=== PATIENT | female | born 1950 | race Caucasian/White ===

== ENCOUNTER 2019-04-15 12:15 | Outpatient (CLI) | payer MEDICARE, SELFPAY ==
--- NOTE | ~2019-04-15 | XR_ITS ---
EXAMINATION: XR shoulder LT min 2V DATE: 04/15/2019 12:43 INDICATION: Left shoulder pain. Injury. TECHNIQUE: 4 views of left shoulder were obtained. COMPARISON: None. FINDINGS: Bone alignment is normal. No fracture. There is mild osteoarthritis of acromioclavicular roxann int and glenohumeral joint. IMPRESSION: 1. Mild polyarticular osteoarthritis. Reviewed, dictated and finalized at location A. TRY BARN MANAGER
== END 2019-04-15 12:16 | disposition home or self-care (01) ==
LOC: ANHIMG 12:27
PROVIDERS: PCP Internal Medicine; Visit Provider Nurse Practitioner
DX: M25.512 Pain in left shoulder (principal); M19.012 Primary osteoarthritis, left shoulder
CPT/HCPCS: 73030

== ENCOUNTER 2019-04-21 15:53 | Outpatient (CLI) | payer MEDICARE, SELFPAY ==
--- NOTE | ~2019-04-21 | CT_ITS ---
EXAMINATION: CT lung screening EXAM DATE: 04/21/2019 16:25 INDICATION: Personal history of nicotine dependence. TECHNIQUE: Spiral low dose CT of the chest without contrast. Axial, coronal and sagittal images were reviewed. The dose-length product (DLP) for this examination was 180.07 mGy-cm. The exposure was t ailored according to patient size (auto mA exposure control), and iterative reconstruction (ASIR) was used as additional dose reduction technique. There is no prior study for comparison. FINDINGS: The lungs are clear. Tracheobronchial tree is patent. There is no mediastinal, hilar o r axillary lymphadenopathy. There are no pleural or pericardial effusions. There is no pneumothor ax. Heart normal in size. No evidence of coronary arterial calcification. Upper abdomen is unrema rkable. There is mild thoracic spondylosis without osteoblastic or osteolytic lesions identified. IMPRESSION: Lung-RADS category 1, negative (<1%chance of malignancy); recommend continued LDCT screen ing in 1 year. Reviewed, dictated and finalized at location A. RAFT AIR CONDITIONING MECHANIC IMPRESSION: Lung-RADS category 1, negative (<1%chance of malignancy); recommend continued LDCT screening in 1 year.
== END 2019-04-21 15:54 | disposition home or self-care (01) ==
LOC: ANHIMG 15:56
PROVIDERS: PCP Internal Medicine; Visit Provider Nurse Practitioner
DX: Z12.2 Encounter for screening for malignant neoplasm of respiratory organs (principal); Z87.891 Personal history of nicotine dependence
CPT/HCPCS: G0297

== ENCOUNTER 2019-08-06 16:50 | Outpatient (CLI) | payer MEDICARE, SELFPAY ==
[2019-08-06 18:05] LABS: Basophils Absolute Auto 0.1 K/mm3 (0.0-0.1); Basophils Percent Auto 0.7 % (0.2-1.2); Eosinophils Absolute Auto 0.3 K/mm3 (0-0.3); Hematocrit 41.1 % (37.0-47.0); Hemoglobin 13.1 g/dL (12.0-15.0); Immature Granulocyte Absolute 0.04 K/mm3 (0.00-0.031); Immature Granulocyte Percent A 0.4 % (0-0.5); Lymphocytes Absolute Auto 2.81 K/mm3 (0.9-3.2); Lymphocytes Percent Auto 24.8 % (18.3-44.2); Mean Corpuscular HGB Conc 31.9 g/dl (32-36); Mean Corpuscular Hemoglobin 27.2 pg (26-34); Mean Corpuscular Volume 85.4 fl (80-100); Mean Platelet Volume 11.4 fl (7.4-10.4); Monocytes Absolute Auto 0.6 K/mm3 (0.1-0.6); Monocytes Percent Auto 5.5 % (2.6-8.5); Neutrophils Absolute Auto 7.5 K/mm3 (1.3-6.7); Neutrophils Percent Auto 65.6 % (45.5-73.1); Platelet Count Result 316 k/mm3 (150-375); Red Blood Count 4.81 M/mm3 (4.2-5.4); Red Cell Distribution Width 15.1 % (11.5-14.5); White Blood Count 11.4 K/mm3 (4.5-10.0)
== END 2019-08-06 16:51 | disposition home or self-care (01) ==
PROVIDERS: PCP Internal Medicine; Visit Provider Nurse Practitioner
DX: D72.829 Elevated white blood cell count, unspecified (principal)
CPT/HCPCS: 36415; 85025

== ENCOUNTER 2020-04-14 12:27 | Outpatient (CLI) | payer MEDICARE, SELFPAY ==
--- NOTE | ~2020-04-14 | US_ITS ---
EXAMINATION: US soft tissue head and neck DATE: 04/14/2020 13:30 INDICATION: Right neck pain. TECHNIQUE: Multiple grayscale and Doppler ultrasound images of the right neck were obtained. COMPARISON: Chest CT 04/21/2019 FINDINGS: There is no abnormal mass or lymphadenopathy in the patient's area of concern in right neck . IMPRESSION: 1. No abnormal mass or lymphadenopathy. Reviewed, dictated and finalized at location A. SPRAYER FIRST
== END 2020-04-14 12:28 | disposition home or self-care (01) ==
PROVIDERS: PCP Internal Medicine; Visit Provider Nurse Practitioner
DX: M54.2 Cervicalgia (principal)
CPT/HCPCS: 76536

== ENCOUNTER 2020-04-21 10:59 | Outpatient (CLI) | payer MEDICARE, SELFPAY | END 2020-04-21 11:00 | disposition home or self-care (01) | PROVIDERS: PCP Internal Medicine | DX: Z23 Encounter for immunization (principal) | CPT/HCPCS: 0001A; 91300 ==

== ENCOUNTER 2020-05-12 11:28 | Outpatient (CLI) | payer MEDICARE, SELFPAY | END 2020-05-12 11:29 | disposition home or self-care (01) | LOC: ANHCOVIDVC 11:28 | PROVIDERS: PCP Internal Medicine | DX: Z23 Encounter for immunization (principal) | CPT/HCPCS: 0002A; 91300 ==

== ENCOUNTER → 2020-09-16 08:24 | Outpatient (CLI) | payer MEDICARE, SELFPAY ==
[2020-09-16 18:53] LABS: SARS-CoV-2 RNA PCR Negative
== END ==
PROVIDERS: PCP Internal Medicine; Visit Provider Clinical Nurse Specialist
DX: R19.7 Diarrhea, unspecified (principal); Z20.822 Contact with and (suspected) exposure to COVID-19
CPT/HCPCS: C9803; U0003; U0005

== ENCOUNTER 2020-10-06 09:00 | Outpatient (CLI) | payer MEDICARE, SELFPAY ==
--- NOTE | ~2020-10-06 | US_ITS ---
EXAMINATION: US abdomen complete DATE: 10/06/2020 09:39 INDICATION: Abdominal pain TECHNIQUE: Multiple grayscale and Doppler ultrasound images of the abdomen were obtained. COMPARISON: None FINDINGS: The pancreatic head and body are normal in appearance. The pancreatic tail is not visualized. Liver has normal contour, with a smooth surface. There is increased parenchymal echogenicity and coarsened echotexture consistent with diffuse hepatic steatosis. No liver lesion identified. No intrahepatic b iliary duct dilation suspected. Portal venous flow was seen in the hepatopetal, normal direction and has normal Doppler waveform. The gallbladder is normal in appearance. There is no cholelithiasis. Th e common bile duct measures 4 mm, which is normal. 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 There is normal renal contour and echogenicity bilaterally. The right kidney measu res 10.9 x 5.3 x 6.8 cm and the left 12.0 x 4.9 x 4.9 cm. There are no focal renal lesions identifie d. There is no hydronephrosis. Normal spleen which measures 10.5 cm in maximal length. Abdominal aor ta is normal in caliber measuring 2.7 cm proximally tapering to 2.4 cm in the mid aorta and 2.1 cm at the distal aorta. The visualized proximal inferior vena cava is normal. IMPRESSION: 1. Normal abdominal ultrasound. Reviewed, dictated and finalized at location A.
== END 2020-10-06 09:01 | disposition home or self-care (01) ==
LOC: ANHIMG 09:01
PROVIDERS: PCP Internal Medicine; Visit Provider Nurse Practitioner
DX: R10.9 Unspecified abdominal pain (principal)
CPT/HCPCS: 76700

== ENCOUNTER 2020-10-14 07:38 | Outpatient (CLI) | payer MEDICARE, SELFPAY ==
--- NOTE | ~2020-10-14 | NM_ITS ---
EXAMINATION: NM hepatobiliary wo pharm DATE: 10/14/2020 10:15 INDICATION: Unspecified abdominal pain. COMPARISON: Ultrasound 10/06/2020 TECHNIQUE: 4.7 mCi Tc-99m mebrofenin (Choletec) was administered intravenously. Scintigraphic images of the abdomen were obtained for one hour. Then, the patient drank 8 oz Ensure, and imaging was cont inued for 60 minutes. FINDINGS: There is normal clearance of radiotracer from the blood pool. There is homogeneous tracer u ptake by the liver. Activity progresses to the bowel and gallbladder. Gallbladder ejection fraction (GBEF) was 83%. Note that with this technique, normal GBEF >= 33%. IMPRESSION: 1. Normal hepatobiliary scintigraphy. Reviewed, dictated and finalized at location A.
== END 2020-10-14 07:39 | disposition home or self-care (01) ==
PROVIDERS: PCP Internal Medicine; Visit Provider Nurse Practitioner
DX: R10.9 Unspecified abdominal pain (principal)
CPT/HCPCS: 78226; A9537

== ENCOUNTER 2020-10-21 14:10 | Outpatient (CLI) | payer MEDICARE, SELFPAY ==
--- NOTE | ~2020-10-21 | CT_ITS ---
EXAMINATION: CT abdomen pelvis wo con DATE: 10/21/2020 14:38 INDICATION: Unspecified abdominal pain. TECHNIQUE: Computed tomography (CT) of the abdomen and pelvis was performed without intravenous contr ast. Automated exposure control and iterative reconstruction technique were employed. The dose-length product was 1007.42 mGy-cm. COMPARISON: Chest CT 04/21/2019 FINDINGS: The visualized portions of the lung bases demonstrate a calcified right lung nodule, consis tent with old granulomatous disease. No pleural effusion. The heart size is normal. No pericardial ef fusion. There is diffuse hepatic steatosis. The gallbladder, spleen, pancreas, adrenal glands, and ki dneys are normal. There is no urolithiasis. There is diverticulosis of the colon without evidence of diverticulitis. Stool distends the rectum. The appendix is normal. A ventriculoperitoneal shunt is no joshua. There are no pathologically enlarged lymph nodes. There is no free intraperitoneal fluid. There is severe lumbar spondylosis. There are changes of anterior and posterior fusion procedures at L5-S1. IMPRESSION: 1. Stool distends the rectum. 2. Diffuse hepatic steatosis. Reviewed, dictated and finalized at location A.
== END 2020-10-21 14:11 | disposition home or self-care (01) ==
LOC: ANHIMG 14:12
PROVIDERS: PCP Internal Medicine; Visit Provider Nurse Practitioner
DX: R10.84 Generalized abdominal pain (principal); K76.0 Fatty (change of) liver, not elsewhere classified; M47.816 Spondylosis without myelopathy or radiculopathy, lumbar region
CPT/HCPCS: 74176

== ENCOUNTER 2020-12-21 13:47 | Outpatient (CLI) | payer MEDICARE, SELFPAY ==
[2020-12-21 15:10] LABS: Basophils Absolute Auto 0.1 K/mm3 (0.0-0.1); Basophils Percent Auto 0.7 % (0.2-1.2); Eosinophils Absolute Auto 0.4 K/mm3 (0-0.3); Eosinophils Percent Auto 2.3 % (0-4.4); Hemoglobin 12.7 g/dL (12.0-15.0); Immature Granulocyte Absolute 0.06 K/mm3 (0.00-0.031); Immature Granulocyte Percent A 0.4 % (0-0.5); Lymphocytes Absolute Auto 3.39 K/mm3 (0.9-3.2); Lymphocytes Percent Auto 21.1 % (18.3-44.2); Mean Corpuscular HGB Conc 31.8 g/dl (32-36); Mean Corpuscular Volume 88.3 fl (80-100); Mean Platelet Volume 10.3 fl (7.4-10.4); Monocytes Absolute Auto 0.9 K/mm3 (0.1-0.6); Monocytes Percent Auto 5.4 % (2.6-8.5); Neutrophils Absolute Auto 11.2 K/mm3 (1.3-6.7); Neutrophils Percent Auto 70.1 % (45.5-73.1); Platelet Count Result 334 k/mm3 (150-375); Red Blood Count 4.53 M/mm3 (4.2-5.4); Red Cell Distribution Width 13.9 % (11.5-14.5)
[2020-12-21 15:15] LABS: Albumin Level 4.4 g/dL (3.5-5.1)
[2020-12-21 15:18] LABS: Anion Gap 10 mmol/L (8-16); Blood Urea Nitrogen 17 mg/dL (7-17); Calcium 8.8 mg/dL (8.4-10.2); Carbon Dioxide 26 mmol/L (22-30); Chloride 104 mmol/L (98-107); Estimated Glomerular Filt Rate > 60; Glucose 196 mg/dL (65-110); Potassium 4.2 mmol/L (3.4-5.0); Sodium 140 mmol/L (137-145)
[2020-12-21 15:45] LABS: Urine Cotinine NEGATIVE
[2020-12-21 17:55] LABS: Hemoglobin A1C 8.9 % (<5.7)
== END 2020-12-21 13:48 | disposition home or self-care (01) ==
LOC: ANHSURGERY 13:55
PROVIDERS: Anesthesiology; PCP Internal Medicine; Visit Provider Orthopaedic Surgery
DX: Z01.812 Encounter for preprocedural laboratory examination (principal); M16.12 Unilateral primary osteoarthritis, left hip; Z51.81 Encounter for therapeutic drug level monitoring; Z79.899 Other long term (current) drug therapy
CPT/HCPCS: 36415; 80048; 80307; 82040; 83036; 85025; 86850; 86880; 86900; 86901; 86902

== ENCOUNTER 2021-03-15 11:23 | Outpatient (CLI) | payer MEDICARE, SELFPAY ==
--- NOTE | ~2021-03-15 | XR_ITS ---
XR hip RT min 3V w AP pelvis 03/15/2021 11:45 Indication: Right hip pain Procedure: AP pelvis and 3 views right hip Comparison: No prior studies for comparison. Findings: No acute fracture, subluxation or dislocation. There are surgical changes at the lumbosacra l junction. Pelvic rings are intact. Sacral foramen are symmetric. Impression: 1: No acute bone or joint abnormality. Reviewed, dictated and finalized at location B. INTEGRATION ARCHITECT Impression: 1: No acute bone or joint abnormality.
== END 2021-03-15 11:24 | disposition home or self-care (01) ==
PROVIDERS: PCP Internal Medicine; Visit Provider Nurse Practitioner
DX: M25.551 Pain in right hip (principal)
CPT/HCPCS: 73502

== ENCOUNTER 2021-03-31 01:28 | Day surgery (SDC) | payer MEDICARE, SELFPAY ==
[2021-03-24 14:46] VITALS: BMI 32.1
--- NOTE | 2021-03-31 12:34 | WPDANESEPPF ---
Anes - Initial Pre Proc Eval Procedure: Operation Date: 03/31/21 13:30 Proposed Procedures p Screening Colonoscopy - Shimon Yousif MD Date/Time: 03/31/21 12:34 Surgeon: Shimon Yousif MD Pre Op Diagnosis: neoplasm screening Patient Data Age: 71 Gender: F Height: 1.65 m Weight: 87.5 kg Allergies Allergy/AdvReac Type Severity Reaction Status Date / Time adhesive tape Allergy Intermediate Blister Verified 03/24/21 14:46 hydromorphone [From Dilaudid] Allergy Intermediate Itching Verified 03/24/21 14:46 morphine Allergy Intermediate Itching Verified 03/24/21 14:46 Home Medications Medication Instructions Recorded Confirmed Type escitalopram oxalate 20 mg tablet 20 mg PO DAILY tablet 10/19/19 03/24/21 History oxybutynin chloride 5 mg 5 mg PO DAILY 10/19/19 03/24/21 History tablet,extended release 24 hr apixaban 5 mg tablet 5 mg PO BID tablet 01/21/20 03/24/21 History metoprolol tartrate 25 mg tablet 25 mg PO BID tablet 01/21/20 03/24/21 History blood-glucose meter #1 ea 05/04/20 03/15/21 Rx buspirone 5 mg tablet 5 mg PO BID tablet 05/04/20 03/24/21 History lisinopril 40 mg tablet 40 mg PO DAILY #90 tablet 05/12/20 03/24/21 Rx liraglutide 0.6 mg/0.1 mL (18 mg/3 1.8 mg SUBCUT DAILY 90 Days #27 ml 08/08/20 03/24/21 Rx mL) subcutaneous pen injector metformin 500 mg tablet 1,000 mg PO BID #180 tablet 08/08/20 03/24/21 Rx pen needle, diabetic 31 gauge x #200 ea 08/08/20 03/15/21 Rx /16 blood sugar diagnostic #200 ea 08/16/20 03/15/21 Rx glimepiride 4 mg tablet 4 mg PO BID 90 Days #180 tablet 09/16/20 03/24/21 Rx simvastatin 40 mg tablet 40 mg PO DAILY #90 tablet 11/16/20 03/24/21 Rx doxepin 10 mg PO HS 12/21/20 03/24/21 History insulin degludec [Tresiba 26 unit SUB-Q HS 12/21/20 03/24/21 History FlexTouch U-100] trazodone 50 mg PO HS 12/21/20 03/24/21 History gabapentin 300 mg capsule 300 mg PO QHS #90 cap 12/28/20 03/24/21 Rx insulin aspart U-100 100 unit/mL 5 unit SUBCUT TID #15 ml 12/28/20 03/24/21 Rx (3 mL) subcutaneous pen cholecalciferol (vitamin D3) 50 mcg PO DAILY 03/24/21 03/24/21 History [Vitamin D3] Patient hx anesthesia problems: none Family hx anesthesia problems: none Results Review: All pre-operative results and documents have been reviewed as part of the pre-operative evaluation. [facility] Past Medical History Medical History (Updated 03/30/21 @ 09:44 by Ja Davis DO) A-fib Allergies Anxiety Arthritis Asthma Back injury L5 SI injection Back pain Brain bleed (2) Depression Diabetes H/O: HTN (hypertension) History of atrial fibrillation Hypertension IBS (irritable bowel syndrome) Obesity Thyroid disorder TIA (transient ischemic attack) Trigeminal neuropathy Surgical History Surgical History H/O foot surgery Left and right H/O knee surgery Left H/O: hysterectomy History of back surgery History of surgery of head placement of shunt Family History Family History Mother Muscular dystrophy Father Carcinoma of colon Grandparent Acute myocardial infarction Ruptured appendix Sibling Acute myocardial infarction Social History Social History Smoking packs per day: 0.75 Smoking cigarettes per day: 15.0 Years smoked: 5 Smoking pack-years: 3.75 Smoking status: Never smoker Tobacco type: cigarettes Smoking end date: 02/18/14 Additional smoking assessment comments: DENIES ANY FORM OF TOBACCO USE Alcohol intake: never Substance use: never Substance use type: does not use Living arrangements: with family Spiritual care concerns: No Anes - Eval Final PreProcedure Day of Procedure 03/31/21 12:34 Patient weight: obese Heart: regular rate and rhythm Lungs: clear to auscultation and normal air movement Airway: Mallampati scale class II Neur
[2021-03-31 12:41] VITALS: BP 135/76; PULSE 95; RESP 18; TEMP 36.5; O2SAT 98; BMI 31.4
[2021-03-31] MEDS: LACTATED RINGERS 1,000 ML 150 ML IV CONT (12:56)
--- NOTE | 2021-03-31 13:10 | PM.HPGS ---
History of Present Illness History of Present Illness Consent: Risks, benefits, and alternatives have been discussed and questions answered. Patient agrees to proceed with procedure. Chief complaint: neoplasm screening Narrative: Alicia Del Toro is a 71 year old female Referred for colon cancer screening Review of Systems Review of Systems: All systems reviewed & are unremarkable except as noted in HPI and below PMFSH Past Medical History Medical History A-fib Allergies Anxiety Arthritis Asthma Back injury L5 SI injection Back pain Brain bleed (2) Depression Diabetes H/O: HTN (hypertension) History of atrial fibrillation Hypertension IBS (irritable bowel syndrome) Obesity Thyroid disorder TIA (transient ischemic attack) Trigeminal neuropathy Surgical History Surgical History H/O foot surgery Left and right H/O knee surgery Left H/O: hysterectomy History of back surgery History of surgery of head placement of shunt Family History Family History Mother Muscular dystrophy Father Carcinoma of colon Grandparent Acute myocardial infarction Ruptured appendix Sibling Acute myocardial infarction Social History Social History Smoking packs per day: 0.75 Smoking cigarettes per day: 15.0 Years smoked: 5 Smoking pack-years: 3.75 Smoking status: Never smoker Tobacco type: cigarettes Smoking end date: 02/18/14 Additional smoking assessment comments: DENIES ANY FORM OF TOBACCO USE Alcohol intake: never Substance use: never Substance use type: does not use Living arrangements: with family Spiritual care concerns: No Meds Home Medications and Allergies Home Medications Medication Instructions Recorded Confirmed Type escitalopram oxalate 20 mg tablet 20 mg PO DAILY tablet 10/19/19 03/24/21 History oxybutynin chloride 5 mg 5 mg PO DAILY 10/19/19 03/24/21 History tablet,extended release 24 hr apixaban 5 mg tablet 5 mg PO BID tablet 01/21/20 03/24/21 History metoprolol tartrate 25 mg tablet 25 mg PO BID tablet 01/21/20 03/24/21 History blood-glucose meter #1 ea 05/04/20 03/15/21 Rx buspirone 5 mg tablet 5 mg PO BID tablet 05/04/20 03/24/21 History lisinopril 40 mg tablet 40 mg PO DAILY #90 tablet 05/12/20 03/24/21 Rx liraglutide 0.6 mg/0.1 mL (18 mg/3 1.8 mg SUBCUT DAILY 90 Days #27 ml 08/08/20 03/24/21 Rx mL) subcutaneous pen injector metformin 500 mg tablet 1,000 mg PO BID #180 tablet 08/08/20 03/24/21 Rx pen needle, diabetic 31 gauge x #200 ea 08/08/20 03/15/21 Rx /16 blood sugar diagnostic #200 ea 08/16/20 03/15/21 Rx glimepiride 4 mg tablet 4 mg PO BID 90 Days #180 tablet 09/16/20 03/24/21 Rx simvastatin 40 mg tablet 40 mg PO DAILY #90 tablet 11/16/20 03/24/21 Rx doxepin 10 mg PO HS 12/21/20 03/24/21 History insulin degludec [Tresiba 26 unit SUB-Q HS 12/21/20 03/24/21 History FlexTouch U-100] trazodone 50 mg PO HS 12/21/20 03/24/21 History gabapentin 300 mg capsule 300 mg PO QHS #90 cap 12/28/20 03/24/21 Rx insulin aspart U-100 100 unit/mL 5 unit SUBCUT TID #15 ml 12/28/20 03/24/21 Rx (3 mL) subcutaneous pen cholecalciferol (vitamin D3) 50 mcg PO DAILY 03/24/21 03/24/21 History [Vitamin D3] Allergies Allergy/AdvReac Type Severity Reaction Status Date / Time adhesive tape Allergy Intermediate Blister Verified 03/24/21 14:46 hydromorphone [From Dilaudid] Allergy Intermediate Itching Verified 03/24/21 14:46 morphine Allergy Intermediate Itching Verified 03/24/21 14:46 Vital Signs Vital Signs - 24 hr 03/31/21 12:41 Temperature 36.5 C Pulse Rate 95 Respiratory Rate 18 Blood Pressure 135/76 Pulse Oximetry 98 Exam Const: General: alert Orientation/consciousness: patient oriented x3 Resp: Auscultation: clear
[2021-03-31 13:15] LABS: Glucose Point of Care 128 mg/dl (65-105)
[2021-03-31] MEDS: AMPICILLIN 2 GM/NS 100 ML 2 GM/100 ML BAG IVPB (13:19)
[2021-03-31 13:40] VITALS: BP 96/46; PULSE 81; RESP 21; O2SAT 96
[2021-03-31 13:50] VITALS: BP 95/54; PULSE 81; RESP 21; O2SAT 100
[2021-03-31 14:00] VITALS: BP 110/61; PULSE 74; RESP 19; O2SAT 100
--- NOTE | 2021-03-31 14:06 | SUR.PHASEII ---
accu check in post op was 103
[2021-03-31 14:07] LABS: Glucose Point of Care 103 mg/dl (65-105)
--- NOTE | 2021-03-31 15:04 | SUR.PHASEII ---
dr simmons okayed pt to restart her eliquis. pt notified. voiced understanding.
== END 2021-03-31 14:14 | disposition home or self-care (01) ==
PROVIDERS: PCP Internal Medicine; Visit Provider Internal Medicine Gastroenterology
PROC: 0DJD8ZZ Inspection of Lower Intestinal Tract, Via Natural or Artificial Opening Endoscopic (ICD-10-PCS; CPT 45378; principal; 2021-03-31 13:30)
DX: Z12.11 Encounter for screening for malignant neoplasm of colon (principal); K57.30 Diverticulosis of large intestine without perforation or abscess without bleeding; K64.8 Other hemorrhoids; Z86.010 Personal history of colon polyps; Z80.0 Family history of malignant neoplasm of digestive organs; I48.91 Unspecified atrial fibrillation; J45.909 Unspecified asthma, uncomplicated; E11.9 Type 2 diabetes mellitus without complications; F41.8 Other specified anxiety disorders; I10 Essential (primary) hypertension; K58.9 Irritable bowel syndrome, unspecified; G50.0 Trigeminal neuralgia; Z86.73 Personal history of transient ischemic attack (TIA), and cerebral infarction without residual deficits; Z98.2 Presence of cerebrospinal fluid drainage device; Z87.891 Personal history of nicotine dependence; E66.9 Obesity, unspecified; Z68.31 Body mass index [BMI] 31.0-31.9, adult; Z79.01 Long term (current) use of anticoagulants; Z79.84 Long term (current) use of oral hypoglycemic drugs; Z79.899 Other long term (current) drug therapy; Z79.4 Long term (current) use of insulin
CPT/HCPCS: G0105; 82948; J0290; J2704; J7120

== ENCOUNTER 2021-06-02 09:10 | Outpatient (CLI) | payer MEDICARE, SELFPAY ==
--- NOTE | ~2021-06-02 | MM_ITS ---
EXAMINATION: MM screening quang BI w quynh HISTORY: Screening TECHNIQUE: Craniocaudal and mediolateral oblique 3-D tomosynthesis images were obtained and synthetic 2-D images were generated. CAD analysis was submitted and interpreted. COMPARISON: No prior mammogram is available for comparison at this institution. BREAST PARENCHYMAL COMPOSITION: The breasts are almost entirely fatty. FINDINGS: There is no evidence of suspicious mass, calcification, or architectural distortion to sugg est malignancy in either breast. There has been no suspicious interval change. IMPRESSION: 1. No mammographic evidence of malignancy. 2. Recommend routine screening mammography in one year. BI-RADS Category 1: Negative Reviewed, dictated and finalized at location A.
--- NOTE | ~2021-06-02 | DEXA_ITS ---
Bone Density Report Name: ANNEMARIE MANZANO Age: 71 Sex: Female Ethnicity: White Date of : 1950 Indication: postmenopausal; screening for osteoporosis; asthma or emphysema; hysterectomy; Referring Provider: KHAI TORRES Study: Bone densitometry was performed. Exam Date: June 02, 2021 Accession number: [id number] Bone Density: Region BMD T-score Z-score Classification AP Spine(L1, L3) 1.130 1.1 3.1 Normal Femoral Neck (Left) 0.687 -1.5 0.3 Osteopenia Total Hip (Left) 0.766 -1.4 0.0 Osteopenia Femoral Neck (Right) 0.753 -0.9 0.9 Normal Total Hip (Right) 0.809 -1.1 0.4 Osteopenia Total Hip Mean 0.788 -1.3 0.2 Osteopenia World Health Organization criteria for BMD impression classify patients as: Normal (T-score at or above -1.0), Osteopenia (T-score between -1.0 and -2.5), or Osteoporosis (T-score at or below -2.5). 10-year Fracture Risk(1): Major Osteoporotic Fracture 9.3% Hip Fracture 1.2% Reported Risk Factors: [place] (), Neck BMD=0.687, BMI=30.2 (1) FRAX(R) Version 3.08. Fracture probability calculated for an untreated patient. Fracture probability may be lower if the patient has received treatment. Clinical Information Provided by Patient: Has used the following medications: Vitamin D Has the following medical conditions: Asthma or Emphysema, Hysterectomy Patient maximum height was 66 Menopause Age: 33 No regular weight bearing exercise Drinks caffeinated beverages Onset of menses at age 12 Number of children 1 Impression: The patient has low bone mass, based on the Left Femoral Neck T-score. The patient has an estimated ten-year risk of hip fracture of 1.2% and an estimated ten-year risk of major fracture of 9.3%, based on the WHO FRAX algorithm. Discussion: BONE DENSITY IS LOW AT ONE OR MORE SKELETAL SITES. This patient's lowest T-score is low at one or more skeletal sites. It meets the World Health Organization's (WHO) criteria for ?low bone mass? (T-score between -1.0 and -2.5). The patient's 10-year risk of fracture as calculated by FRAX is less than the threshold where pharmacological therapy is recommended by the National Osteoporosis Foundation (NOF). However, all treatment decisions require clinical judgment and consideration of individual patient factors, including patient preferences, comorbidities, previous drug use, risk factors not captured in the FRAX model (e.g., frailty, falls, vitamin D deficiency, increased bone turnover, interval significant decline in bone density) and possible under or overestimation of fracture risk by FRAX. The patient should follow a healthful lifestyle (good nutrition with adequate calcium and vitamin D, and appropriate weight-bearing exercise). Follow-Up: Consider repeating this study in 2 to 3 years to
== END 2021-06-02 09:11 | disposition home or self-care (01) ==
PROVIDERS: PCP Internal Medicine; Visit Provider Nurse Practitioner
DX: Z12.31 Encounter for screening mammogram for malignant neoplasm of breast (principal); Z78.0 Asymptomatic menopausal state; M85.852 Other specified disorders of bone density and structure, left thigh; M85.851 Other specified disorders of bone density and structure, right thigh
CPT/HCPCS: 77063; 77067; 77080

== ENCOUNTER → 2021-10-17 10:42 | Outpatient (CLI) | payer MEDICARE, SELFPAY ==
--- NOTE | ~2021-10-17 | CT_ITS ---
EXAMINATION: CT facial bones wo con DATE: 10/17/2021 11:03 INDICATION: Injury to alveolar process, lump in right maxillary area TECHNIQUE: Computed tomography (CT) of the facial bones and maxillofacial region was performed withou t intravenous contrast. Automated exposure control and iterative reconstruction technique were employ ed. Exam dose: 296.15 mGy-cm total exam DLP. COMPARISON: None. FINDINGS: Left parietal bone flap secured by plates and screws. Plate and screws are noted at the bas e of the right occipital bone. The paranasal sinuses and mastoid air cells are normally developed and aerated. Frontozygomatic sutures, orbital rims and ross, nasal bones, anterior maxillary spine, zygomatic arc hes, maxillary bones are intact, without evidence of fracture. No mandibular fracture or dislocation. IMPRESSION: No facial fracture Reviewed, dictated and finalized at Location A. Reviewed, dictated and finalized at location B. IMPRESSION: No facial fracture
== END ==
PROVIDERS: PCP Clinical Nurse Specialist; Visit Provider Clinical Nurse Specialist
DX: S09.93XA Unspecified injury of face, initial encounter (principal); X58.XXXA Exposure to other specified factors, initial encounter
CPT/HCPCS: 70486

== ENCOUNTER 2022-07-13 12:52 | Outpatient (CLI) | payer MEDICARE, SELFPAY ==
--- NOTE | ~2022-07-13 | CT_ITS ---
CT Scan of the Chest without Contrast: Clinical Indication: Lung cancer screening, personal history of nicotine dependence Technique: Contiguous sections were acquired throughout the chest without intravenous contrast. Dose reduction technique was used on this scan by utilizing automated exposure control and iterative recon struction technique. The dose-length product (DLP) was 142.58 mGy-cm. COMPARISON: 04/21/2019 Findings: There is no evidence of any significant mediastinal, hilar or axillary lymphadenopathy. The mediastin al soft tissues appear normal. There is no evidence of pleural or pericardial effusion. The lungs are clear. No pulmonary nodules or infiltrates are noted. Images through the upper abdomen reveal no abnormalities. Impression: Lung RADS 1: Negative. 12 month follow-up screening CT advised. Reviewed, dictated and finalized at location . Impression: Lung RADS 1: Negative. 12 month follow-up screening CT advised.
== END 2022-07-13 12:53 | disposition home or self-care (01) ==
PROVIDERS: PCP Internal Medicine; Visit Provider Clinical Nurse Specialist
DX: Z12.2 Encounter for screening for malignant neoplasm of respiratory organs (principal); Z87.891 Personal history of nicotine dependence
CPT/HCPCS: 71271

== ENCOUNTER 2022-11-19 16:11 | Emergency (ER) | payer MEDICARE, SELFPAY ==
[2022-11-19 16:40] VITALS: BP 95/55; PULSE 71; RESP 20; TEMP 36.8; O2SAT 97
--- NOTE | 2022-11-19 17:38 | PC.NURSE ---
pt left d.t wait time, asking her dr to order outpatient ct
== END 2022-11-19 17:38 | disposition left against medical advice (07) ==
LOC: ANHED 17:43
PROVIDERS: PCP Internal Medicine
DX: R11.0 Nausea (principal)
CPT/HCPCS: 99199

== ENCOUNTER 2022-11-20 09:25 | Outpatient (CLI) | payer MEDICARE, SELFPAY ==
--- NOTE | ~2022-11-20 | CT_ITS ---
CT of the Abdomen and Pelvis: Indication: Abdominal pain Technique: 2.5 mm axial scans were obtained through the abdomen and pelvis following intravenous adm inistration of 100 cc of Omnipaque 350. Dose reduction technique was used on this scan by utilizing a utomated exposure control and iterative reconstruction technique. The dose-length product (DLP) was 1 048.04 mGy-cm. COMPARISON: 10/21/2020 Findings: Scans through the lung bases are unremarkable. The liver, spleen, pancreas, gallbladder, adrenals and kidneys are within normal limits. No evidence of aortic aneurysm. No lymphadenopathy. No bowel obstruction or bowel wall thickening. There is no evidence to suggest acute appendicitis. TREE KILLER shunt noted. Images through the pelvis were performed. Urinary bladder unremarkable. Patient is post hysterectomy. No adnexal mass seen. No ascites. There is severe degenerative spondylosis at L2-L3, with posterior fusion from L5 to S1. Impression: No acute intra-abdominal abnormality seen. TREE KILLER shunt in place. Reviewed, dictated and finalized at [facility]. Impression: No acute intra-abdominal abnormality seen. TREE KILLER shunt in place.
[2022-11-20 10:39] LABS: Basophils Absolute Auto 0.1 K/mm3 (0.0-0.1); Basophils Percent Auto 0.6 % (0.2-1.2); Eosinophils Absolute Auto 0.2 K/mm3 (0-0.3); Eosinophils Percent Auto 2.5 % (0-4.4); Hematocrit 41.6 % (37.0-47.0); Hemoglobin 13.2 g/dL (12.0-15.0); Immature Granulocyte Absolute 0.02 K/mm3 (0.00-0.031); Immature Granulocyte Percent A 0.2 % (0-0.5); Lymphocytes Absolute Auto 2.41 K/mm3 (0.9-3.2); Lymphocytes Percent Auto 24.9 % (18.3-44.2); Mean Corpuscular HGB Conc 31.7 g/dl (32-36); Mean Corpuscular Hemoglobin 27.6 pg (26-34); Mean Platelet Volume 10.8 fl (7.4-10.4); Monocytes Absolute Auto 0.6 K/mm3 (0.1-0.6); Monocytes Percent Auto 6.1 % (2.6-8.5); Neutrophils Absolute Auto 6.4 K/mm3 (1.3-6.7); Neutrophils Percent Auto 65.7 % (45.5-73.1); Platelet Count Result 271 k/mm3 (150-375); Red Blood Count 4.78 M/mm3 (4.2-5.4); Red Cell Distribution Width 14.6 % (11.5-14.5); White Blood Count 9.7 K/mm3 (4.5-10.0)
[2022-11-20 10:49] LABS: Alanine Aminotransferase 16 U/L (6-35); Albumin Level 3.9 g/dL (3.5-5.1); Alkaline Phosphatase 52 U/L (38-126); Anion Gap 7 mmol/L (8-16); Aspartate Amino Transferase 17 U/L (14-36); Bilirubin,Total 0.5 mg/dL (0.2-1.3); Blood Urea Nitrogen 24 mg/dL (7-17); Calcium 8.8 mg/dL (8.4-10.2); Carbon Dioxide 24 mmol/L (22-30); Chloride 103 mmol/L (98-107); Estimated Glomerular Filt Rate > 60; Glucose 115 mg/dL (65-110); Potassium 4.2 mmol/L (3.4-5.0); Sodium 134 mmol/L (137-145)
== END 2022-11-20 09:26 | disposition home or self-care (01) ==
PROVIDERS: PCP Internal Medicine; Visit Provider Clinical Nurse Specialist
DX: R10.9 Unspecified abdominal pain (principal); D72.829 Elevated white blood cell count, unspecified
CPT/HCPCS: 36415; 74177; 80053; 85025; Q9967

== ENCOUNTER 2022-11-21 14:39 | Outpatient (CLI) | payer MEDICARE, SELFPAY ==
--- NOTE | ~2022-11-21 | MM_ITS ---
EXAMINATION: MM screening quang BI w quynh HISTORY: Screening mammogram TECHNIQUE: Craniocaudal and mediolateral oblique 3-D tomosynthesis images were obtained and synthetic 2-D images were generated. CAD analysis was submitted and interpreted. COMPARISON: 06/02/2021 BREAST PARENCHYMAL COMPOSITION: The breasts are almost entirely fatty. FINDINGS: No suspicious mass, calcification, or architectural distortion are identified in either naveed ast to suggest malignancy. There has been no suspicious interval change. IMPRESSION: 1. No mammographic evidence of malignancy. 2. Recommend routine screening mammography in one year. BI-RADS Category 1: Negative Reviewed, dictated and finalized at location A.
== END 2022-11-21 14:40 | disposition home or self-care (01) ==
LOC: ANHIMG 14:41
PROVIDERS: PCP Internal Medicine; Visit Provider Obstetrics & Gynecology Gynecology
DX: Z12.31 Encounter for screening mammogram for malignant neoplasm of breast (principal)
CPT/HCPCS: 77063; 77067

== ENCOUNTER 2023-01-28 15:34 | Outpatient (CLI) | payer MEDICARE, SELFPAY ==
--- NOTE | ~2023-01-28 | XR_ITS ---
EXAMINATION: XR finger 1st LT min 2V DATE: 01/28/2023 16:24 INDICATION: Disorder of bone with fingernail continually falling off TECHNIQUE: Dorsal palmar, lateral and oblique views of the left first digit were obtained COMPARISON: None FINDINGS: Severe osteoarthritis at the first carpometacarpal joint with chronic calcific debris/loose osteochon dral bodies and with mild secondary dorsal subluxation of the base of the first metacarpal. There bon e alignment is otherwise normal. No acute fracture. Additional moderate osteoarthritis at the triscap he and first metacarpophalangeal joints and mild osteoarthritis at the first interphalangeal joint. N o cortical erosions, osteolysis or periosteal reaction to suggest osteomyelitis. Soft tissues are unr emarkable. No radiopaque foreign bodies. IMPRESSION: 1. Polyarticular osteoarthritis, severe at the first carpometacarpal joint and moderate at the trisca phe and first metacarpophalangeal joints. Reviewed, dictated and finalized at location A. EY ENGINEER IMPRESSION: 1. Polyarticular osteoarthritis, severe at the first carpometacarpal joint and moderate at the triscaphe and first metacarpophalangeal joints.
== END 2023-01-28 15:35 | disposition home or self-care (01) ==
PROVIDERS: PCP Internal Medicine; Visit Provider Dermatology
DX: M89.9 Disorder of bone, unspecified (principal); M19.042 Primary osteoarthritis, left hand
CPT/HCPCS: 73140

== ENCOUNTER → 2023-03-18 12:51 | Outpatient (CLI) | payer MEDICARE, SELFPAY ==
--- NOTE | ~2023-03-18 | CT_ITS ---
EXAMINATION: CT knee RT wo con DATE: 03/18/2023 13:13 INDICATION: Right knee pain. TECHNIQUE: Computed tomography (CT) of the right knee was performed without intravenous contrast. Aut omated exposure control and iterative reconstruction technique were employed. The dose-length product was 322.69 mGy-cm. COMPARISON: None FINDINGS: There is lateral subluxation of patella. There is heterotopic ossification at the lateral i nferior aspect of patella. No acute fracture. There is severe osteoarthritis of patellofemoral compar tment, moderate osteoarthritis of lateral compartment, and mild osteoarthritis of medial compartment. There is a small knee joint effusion. There is a loose body posterior to lateral femoral metaphysis. IMPRESSION: 1. Severe right knee osteoarthritis. 2. Small knee joint effusion. Reviewed, dictated and finalized at location A. GER OF MAINTENANCE
== END ==
PROVIDERS: PCP Internal Medicine; Visit Provider Nurse Practitioner
DX: M17.11 Unilateral primary osteoarthritis, right knee (principal); M25.461 Effusion, right knee
CPT/HCPCS: 73700

== ENCOUNTER → 2023-03-27 12:47 | Outpatient (CLI) | payer MEDICARE, SELFPAY ==
--- NOTE | ~2023-03-27 | US_ITS ---
EXAMINATION: US thyroid DATE: 03/27/2023 12:59 INDICATION: Nontoxic goiter, unspecified. TECHNIQUE: Multiple ultrasound images of the thyroid were obtained. COMPARISON: Ultrasound 04/14/2020 FINDINGS: The right thyroid lobe measures 4.0 x 1.3 x 1.9 cm. The left thyroid lobe measures 4.0 x 1.2 x 1.5 c m. There is normal echotexture and echogenicity throughout the thyroid gland. No discrete nodules id entified. Normal vascular flow is present. IMPRESSION: 1. Normal thyroid. Reviewed, dictated and finalized at location E. L SELECTOR IMPRESSION: 1. Normal thyroid.
== END ==
PROVIDERS: PCP Internal Medicine; Visit Provider Nurse Practitioner Family
DX: E04.9 Nontoxic goiter, unspecified (principal)
CPT/HCPCS: 76536

== ENCOUNTER → 2023-03-28 15:14 | Outpatient (CLI) | payer MEDICARE, SELFPAY ==
--- NOTE | ~2023-03-28 | XR_ITS ---
EXAMINATION: XR lumbar spine 2-3V DATE: 03/28/2023 16:11 INDICATION: Dorsalgia, unspecified lumbar pain. TECHNIQUE: 3 views of lumbar spine were obtained. COMPARISON: CT abdomen and pelvis 11/20/2022 FINDINGS: There is 4 degrees dextrocurvature of lumbar spine. There is 3 mm retrolisthesis of L2 on L 3 and L3 on L4. Vertebral body heights are normal. There are changes of anterior and posterior fusion procedures at L5-S1 with interbody devices and pedicle screws. There is severely decreased disc heig ht at L2-L3 and mildly decreased disc height at L3-L4. There is multilevel severe facet joint osteoar thritis. A left-sided ventriculoperitoneal shunt is noted. IMPRESSION: 1. Severe lumbar spondylosis. 2. Anterior and posterior fusion procedures at L5-S1. Reviewed, dictated and finalized at location E. K DRIVER'S OFFSIDER
== END ==
PROVIDERS: PCP Clinical Nurse Specialist; Visit Provider Clinical Nurse Specialist
DX: M47.896 Other spondylosis, lumbar region (principal); Z98.1 Arthrodesis status
CPT/HCPCS: 72100

== ENCOUNTER 2023-04-15 11:54 | Outpatient (CLI) | payer MEDICARE, SELFPAY ==
[2023-04-15 13:27] LABS: Basophils Absolute Auto 0.1 K/mm3 (0.0-0.1); Basophils Percent Auto 0.6 % (0.2-1.2); Eosinophils Absolute Auto 0.5 K/mm3 (0-0.3); Eosinophils Percent Auto 3.6 % (0-4.4); Hematocrit 42.5 % (37.0-47.0); Hemoglobin 13.2 g/dL (12.0-15.0); Immature Granulocyte Absolute 0.04 K/mm3 (0.00-0.031); Immature Granulocyte Percent A 0.3 % (0-0.5); Lymphocytes Absolute Auto 2.52 K/mm3 (0.9-3.2); Lymphocytes Percent Auto 19.3 % (18.3-44.2); Mean Corpuscular HGB Conc 31.1 g/dl (32-36); Mean Corpuscular Hemoglobin 27.8 pg (26-34); Mean Corpuscular Volume 89.5 fl (80-100); Mean Platelet Volume 10.6 fl (7.4-10.4); Monocytes Absolute Auto 0.7 K/mm3 (0.1-0.6); Monocytes Percent Auto 5.5 % (2.6-8.5); Neutrophils Absolute Auto 9.2 K/mm3 (1.3-6.7); Neutrophils Percent Auto 70.7 % (45.5-73.1); Platelet Count Result 275 k/mm3 (150-375); Red Blood Count 4.75 M/mm3 (4.2-5.4); Red Cell Distribution Width 14.6 % (11.5-14.5)
[2023-04-15 13:31] LABS: Albumin Level 3.9 g/dL (3.5-5.1)
[2023-04-15 13:34] LABS: Anion Gap 6 mmol/L (8-16); Blood Urea Nitrogen 19 mg/dL (7-17); Calcium 9.1 mg/dL (8.4-10.2); Carbon Dioxide 28 mmol/L (22-30); Chloride 107 mmol/L (98-107); Estimated Glomerular Filt Rate > 60; Glucose 95 mg/dL (65-110); Potassium 4.8 mmol/L (3.4-5.0); Sodium 141 mmol/L (137-145)
[2023-04-15 13:58] LABS: Urine Cotinine NEGATIVE
[2023-04-15 16:28] LABS: Hemoglobin A1C 7.1 % (<5.7)
== END 2023-04-15 11:55 | disposition home or self-care (01) ==
LOC: ANHSURGERY 12:05
PROVIDERS: Anesthesiology; PCP Clinical Nurse Specialist; Visit Provider Orthopaedic Surgery
DX: M17.11 Unilateral primary osteoarthritis, right knee (principal); E11.9 Type 2 diabetes mellitus without complications; Z01.818 Encounter for other preprocedural examination
CPT/HCPCS: 36415; 80048; 80307; 82040; 83036; 85025; 86850; 86880; 86900; 86901; 86902; 86922

== ENCOUNTER 2023-04-22 01:07 | Day surgery (SDC) | payer MEDICARE, SELFPAY ==
[2023-04-15 12:14] VITALS: BMI 31.8
--- NOTE | 2023-04-15 12:47 | PC.NURSE ---
Report to the Outpatient Waiting Room, entrance under the green pavilion located off [facility], at time _0800 on date __04/22/23 . Planned Procedure Time: _1000 . Time changes happen often and if your time is changed the preop area will call you the afternoon before. - You and your visitor will be asked to self-screen and do not enter if you have any COVID symptoms. - A mask is optional within the hospital at this time. Patients may have clear liquids (water, carbonated beverages, clear teas, apple juice) until 3 hours prior to surgery( 7:00 AM) with a maximum of 20 ounces. - No food from midnight until time of surgery - Infants may have breast milk until 4 hours before surgery, infant formula 6 hours prior to surgery. - Children will be allowed to drink immediately following surgery. If applicable, please bring a bottle or sippy cup to assist with drinking. Juice, water, soda, and popsicles are readily available. For infants on formula, please bring formula the day of surgery. Pacifiers are allowed. Take the following medications with a SIP of water the morning of surgery: __BUSPIRONE,ESCITALOPRAM,GABAPENTIN, METOPROLOL DO NOT STOP ANY OF YOUR OTHER PRESCRIPTION MEDICATIONS PRIOR TO SURGERY ?EXCEPT THE FOLLOWING Medications to discontinue per physician __HOLD ELIQUIS 5 DAYS PRE OP PER DR OATES AND DR WISDOM.LAST DOSE 04/16/23 Please no make-up, nail anguillan, hairspray, perfume, deodorant, or body powder the day of surgery. No jewelry (including any body piercings) or valuables the day of surgery, leave them at home. Please take a shower or bath the night before, or the morning of, surgery with an antibacterial soap. Wear comfortable, loose fitting clothing. Children are encouraged to wear pajamas. - Jewelry must be removed prior to entering the operating room. Rings and piercings that are not removed may be cut off. - The hospital will not accept responsibility for valuables. - Please leave all valuables, including medications, at home the day of surgery. If you are going home after surgery, a licensed city route driver must drive you home. - NO public transportation without another adult if you receive anesthesia. - We recommend that an adult stay with you for 24 hours following discharge. - We also recommend that you do not drive, make important decision, drink alcoholic beverages, or take any drugs that were not prescribed by your health care provider for at least 24 hours after your discharge time. Follow any additional instructions given to you from your surgeon. If you or anyone in your household have experienced Covid symptoms in the past week, please notify your surgeon or the nurse liaison at the phone number below for possible testing. VERBAL AND WRITTEN instructions given to __PATIENT and asked if any additional questions and then verbalized understanding. Patient advised to call surgeon office or pre surgery nurse liaison [phone] if any additional questions.
[2023-04-15 13:05] VITALS: BP 117/73; PULSE 70; RESP 18; TEMP 36.6; O2SAT 98
--- NOTE | 2023-04-18 08:05 | PM.IMHP ---
H&P: HPI History of Present Illness Date/Time: 04/18/23 08:05 Chief Complaint: Patient has right knee pain with zohr-yb-arpz arthritis. She is not respondng to conservative treatment at this point. Review of Systems Musculoskeletal: Musculoskeletal: Reports arthralgias, Reports joint swelling and Reports stiffness [facility] Past Medical History Medical History A-fib Allergies Anxiety Arthritis Asthma Back injury L5 SI injection Back pain Brain bleed (2) CAD (coronary artery disease) Colon polyps Costochondritis Depression Diabetic neuropathy Generalized pruritus Hyperlipidemia Hypertension IBS (irritable bowel syndrome) Insomnia Leukocytosis Obesity Osteopenia Postmenopausal Thyroid disorder TIA (transient ischemic attack) Trigeminal neuropathy Type 2 diabetes mellitus Urinary incontinence Visceral hypersensitivity syndrome Surgical History Surgical History H/O foot surgery Left and right H/O knee surgery Left H/O: hysterectomy History of back surgery History of surgery of head placement of shunt Family History Family History Mother Muscular dystrophy Father Carcinoma of colon Grandparent Acute myocardial infarction Ruptured appendix Sibling Acute myocardial infarction Social History Social History (Updated 04/02/23 @ 10:40 by Melissa García CMA) Smoking packs per day: 0.75 Smoking cigarettes per day: 15.0 Years smoked: 5 Smoking pack-years: 3.75 Smoking status: Former smoker Tobacco type: cigarettes Smoking end date: 02/18/15 Additional smoking assessment comments: DENIES ANY FORM OF TOBACCO USE Alcohol intake: never Substance use: never Do You Feel Safe in your Home?: Yes Lack of Transportation: No Lack of Food: Never True Current Housing: I Have Housing Concerned About Future Housing: No Difficulty Paying Gas/Electric Bills: No Difficulty Paying for Meds: No Currently Unemployed: No Education: High School Diploma/GED Difficulty w/ Childcare or Family Care: No Living arrangements: alone Occupation/Education: retired Spiritual care concerns: No Meds Home Medications and Allergies Home Medications Medication Instructions Recorded Confirmed Type apixaban 5 mg tablet (Eliquis) 5 mg PO BID 01/21/20 04/15/23 History metoprolol tartrate 25 mg tablet 25 mg PO BID 01/21/20 04/15/23 History blood-glucose meter #1 ea 05/04/20 03/26/23 Rx blood sugar diagnostic (OneTouch #200 strips 12/11/21 03/26/23 Rx Ultra Test strips) pen needle, diabetic 31 gauge x #360 ea 09/12/22 03/26/23 Rx 5/16 (BD Ultra-Fine Short Pen Needle) gabapentin 300 mg capsule 300 mg PO BID 90 days #180 caps 12/13/22 04/15/23 Rx linagliptin 5 mg tablet (Tradjenta) 5 mg PO QAM 90 days #90 tabs 12/13/22 04/15/23 Rx metformin 500 mg tablet 1,000 mg PO BID #180 tabs 12/13/22 04/15/23 Rx buspirone 5 mg tablet 5 mg PO BID #180 tabs 01/31/23 04/15/23 Rx simvastatin 40 mg tablet See Rx Instructions .Route 02/04/23 04/15/23 Rx .COMPLEX #90 tabs lisinopril 40 mg tablet 40 mg PO DAILY #90 tabs 02/07/23 04/15/23 Rx trazodone 100 mg tablet 100 mg PO QHS #90 tabs 02/07/23 04/15/23 Rx escitalopram oxalate 20 mg tablet 20 mg PO DAILY #90 tabs 03/18/23 04/15/23 Rx acetaminophen 500 mg capsule 1,000 mg PO PRN PRN Pain 04/15/23 04/15/23 History cetirizine 10 mg capsule (Zyrtec) 10 mg PO DAILY 04/15/23 04/15/23 History empagliflozin 25 mg tablet 25 mg PO DAILY 04/15/23 04/15/23 History (Jardiance) insulin aspart U-100 100 unit/mL 5 unit subcut AC 04/15/23 04/15/23 History (3 mL) subcutaneous pen (Novolog FlexPen U-100 Insulin aspart) insulin degludec 200 unit/mL (3 26 unit subcut QPM 04/15/23 04/15/23 History mL) subcutaneous pen (Tresiba FlexTouch U-200 insulin) [facility]
[2023-04-22] VITALS (16 sets, daily range): BP systolic 92–130; BP diastolic 51–78; PULSE 68–99; RESP 10–20; TEMP 36.4–36.8; O2SAT 93–98; BMI 32.0
--- NOTE | ~2023-04-22 | XR_ITS ---
EXAMINATION: [id number] DATE: 04/22/2023 09:47 INDICATION: Total right knee arthroplasty. Postop. TECHNIQUE: 2 views of right knee were obtained. COMPARISON: Right knee radiographs 04/02/2023 FINDINGS: There is a total right knee arthroplasty with patellar resurfacing in near-anatomic alignme nt. No fracture. There is gas in the knee joint and soft tissues, consistent with recent surgery. Ant erior skin beverley are noted. IMPRESSION: 1. Total right knee arthroplasty in near-anatomic alignment. Reviewed, dictated and finalized at location E. BITS MANAGER
[2023-04-22] MEDS: LACTATED RINGERS 1,000 ML 30 ML IV CONT ×3 (06:40→09:28)
[2023-04-22] MEDS: ACETAMINOPHEN 500 MG TABLET 1000 MG PO (06:49)
--- NOTE | 2023-04-22 06:54 | WPDANESEPPF ---
Anes - Initial Pre Proc Eval Procedure: Operation Date: 04/22/23 07:30 Proposed Procedures p Right Total Knee Arthroplasty - Nakul Lewis MD Date/Time: 04/22/23 06:54 Surgeon: Nakul Lewis MD Pre Op Diagnosis: O A Right Knee Patient Data Age: 73 Gender: F Height: 1.65 m Weight: 86.8 kg Last Vital Signs Temp 36.6 C 04/15/23 13:05 Pulse 70 04/15/23 13:05 Resp 18 04/15/23 13:05 BP 117/73 04/15/23 13:05 Pulse Ox 98 04/15/23 13:05 O2 Del Method Room Air 04/15/23 13:05 Allergies Allergy/AdvReac Type Severity Reaction Status Date / Time adhesive tape Allergy Intermediate Blister Verified 04/22/23 06:32 hydromorphone [From Dilaudid] Allergy Intermediate Itching Verified 04/22/23 06:32 morphine Allergy Intermediate Itching Verified 04/22/23 06:32 Home Medications Medication Instructions Recorded Confirmed Type apixaban 5 mg tablet (Eliquis) 5 mg PO BID 01/21/20 04/15/23 History metoprolol tartrate 25 mg tablet 25 mg PO BID 01/21/20 04/15/23 History blood-glucose meter #1 ea 05/04/20 03/26/23 Rx blood sugar diagnostic (OneTouch #200 strips 12/11/21 03/26/23 Rx Ultra Test strips) pen needle, diabetic 31 gauge x #360 ea 09/12/22 03/26/23 Rx 5/16 (BD Ultra-Fine Short Pen Needle) gabapentin 300 mg capsule 300 mg PO BID 90 days #180 caps 12/13/22 04/15/23 Rx linagliptin 5 mg tablet (Tradjenta) 5 mg PO QAM 90 days #90 tabs 12/13/22 04/15/23 Rx metformin 500 mg tablet 1,000 mg PO BID #180 tabs 12/13/22 04/15/23 Rx buspirone 5 mg tablet 5 mg PO BID #180 tabs 01/31/23 04/15/23 Rx simvastatin 40 mg tablet See Rx Instructions .Route 02/04/23 04/15/23 Rx .COMPLEX #90 tabs lisinopril 40 mg tablet 40 mg PO DAILY #90 tabs 02/07/23 04/15/23 Rx trazodone 100 mg tablet 100 mg PO QHS #90 tabs 02/07/23 04/15/23 Rx escitalopram oxalate 20 mg tablet 20 mg PO DAILY #90 tabs 03/18/23 04/15/23 Rx acetaminophen 500 mg capsule 1,000 mg PO PRN PRN Pain 04/15/23 04/15/23 History cetirizine 10 mg capsule (Zyrtec) 10 mg PO DAILY 04/15/23 04/15/23 History empagliflozin 25 mg tablet 25 mg PO DAILY 04/15/23 04/15/23 History (Jardiance) insulin aspart U-100 100 unit/mL 5 unit subcut AC 04/15/23 04/15/23 History (3 mL) subcutaneous pen (Novolog FlexPen U-100 Insulin aspart) insulin degludec 200 unit/mL (3 26 unit subcut QPM 04/15/23 04/15/23 History mL) subcutaneous pen (Tresiba FlexTouch U-200 insulin) vibegron 75 mg tablet (Gemtesa) 75 mg PO DAILY 04/15/23 04/15/23 History rivaroxaban 10 mg tablet (Xarelto) 10 mg PO DAILY PE prophylaxis s/p 04/18/23 Rx joint replacement surgery 10 days #10 tabs Patient hx anesthesia problems: none Family hx anesthesia problems: none Results Review: All pre-operative results and documents have been reviewed as part of the pre-operative evaluation. [facility] Past Medical History Medical History A-fib Allergies Anxiety Arthritis Asthma Back injury L5 SI injection Back pain Brain bleed (2) CAD (coronary artery disease) Colon polyps Costochondritis Depression Diabetic neuropathy Generalized pruritus Hyperlipidemia Hypertension IBS (irritable bowel syndrome) Insomnia Leukocytosis Obesity Osteopenia Postmenopausal Thyroid disorder TIA (transient ischemic attack) Trigeminal neuropathy Type 2 diabetes mellitus Urinary incontinence Visceral hypersensitivity syndrome Surgical History Surgical History H/O foot surgery Left and right H/O knee surgery Left H/O: hysterectomy History of back surgery History of surgery of head placement of shunt Family History Family History Mother Muscular dystrophy Father Carcinoma of colon Grandparent Acute myocardial infarction Ruptured appendix Sibling Acute myocardial infarction Social H
--- NOTE | 2023-04-22 06:56 | WPDHPUPDATE1 ---
History and Physical Update Update Date/Time: 04/22/23 06:56 History and Physical has been reviewed, including an updated exam of the patient. There are NO changes in the patient's condition. Risks, benefits, and alternatives have been discussed and questions answered. Patient agrees to proceed with procedure.
[2023-04-22] MEDS: VANCOMYCIN 1,250 MG/NS 250 ML BAG 166.67 MG IVPB (06:57)
[2023-04-22] MEDS: TRANEXAMIC ACID 1,000MG/ISO100 1,000 MG/100 ML BAG 200 MG IVPB (07:00)
--- NOTE | 2023-04-22 07:01 | SUR.PREOP ---
0701- Patient's blood glucose 71. Dr. Davis notified and no new orders at this time.
[2023-04-22 07:10] LABS: Glucose Point of Care 71 mg/dl (65-105)
--- NOTE | 2023-04-22 07:13 | WPDHPUPDATE1 ---
History and Physical Update Update Date/Time: 04/22/23 07:13 History and Physical has been reviewed, including an updated exam of the patient. There are NO changes in the patient's condition. Risks, benefits, and alternatives have been discussed and questions answered. Patient agrees to proceed with procedure. RIGHT KNEE
--- NOTE | 2023-04-22 07:30 | WPDANESPNB ---
Anes - Peripheral Nerve Block Date/Time: 04/22/23 07:30 I have discussed with the patient/family/POA the placement of a peripheral nerve block for post-operative pain management, including associated risks, benefits, complications, and side effects. Alternative methods of post-operative analgesia were detailed. Questions were solicited and answers provided to the satisfaction of the patient/family/POA. Time-Out: A pre-procedural Time-Out was completed immediately before starting the procedure and confirmed: Patient Identification, Site, Procedure, Patient Position and the Availability of Requisite Equipment. Clinical Indications: Acute post-operative pain management requested by the operative surgeon. Nerve Block Insertion Note Anes-nerve block: adductor canal right Patient position: supine Skin prep: chlorhexidine Needle: 22 gauge, stimulating, insulated echogenic needle. Needle length: 80 mm Technique: ultrasound Injectate: bupivacaine 0.5% with epi 5 mcg/ml (30cc - no epi) Observations: tolerated well Complications: none Procedure start time:: 723 Procedure end time:: 727
[2023-04-22] MEDS: ceFAZolin 2 GM/D5W 50 ML 2 GM/50 ML BAG IVPB ×3 (07:32→23:13)
[2023-04-22] MEDS: SODIUM CHLORIDE 0.9% IV 38.7 ML, ROPivacaine HCL 1% 200 MG, KETOROLAC INJ (*BKC) 15 MG,... INFILTRATE (08:23)
[2023-04-22] MEDS: GENTAMICIN BONE CEMENT REFOBACIN 1 EACH TOPICAL (08:36)
--- NOTE | 2023-04-22 09:11 | W.PM.PROC2 ---
Procedure Note - Detailed Date of Procedure 04/22/23 Pre-op Diagnosis Osteoarthritis Right Knee Post-op Diagnosis Same Procedure Performed RIGHT total knee arthroplasty Surgeon Nakul Lewis MD [employer] [facility]arl[facility] Anesthesia General Indications Pain and arthritis Description of Procedure The patient was brought to operating room #8. A general anesthetic was administered. Placed on the operating table and sterilely prepped and draped in usual manner. A longitudinal incision was made. Tourniquet inflated to 300 mmHg for a total of 60 minutes. Dissection was carried down to the fascia. Medial parapatellar incision was made and the patella subluxated laterally. Patella cut from 21 to 15 mm and sized for a 34 mm button. The tibia was cut perpendicular to the long axis and femur cut in 7 degrees of valgus. A 57.5 femur trialed. 63 tibia was felt to fit the best. The soft tissues balanced, hemostasis obtained. All [address], 63 tibia, 57.5 femur, 34 mm patella, and 10AS mm poly. Motion was 0-125 degrees with good stability in both flexion and extension. The wound was closed with #2 Vicryl, 2-0 Vicryl and beverley. [employer] Estimated Blood Loss 200 Drains No Packing No Pathology None sent Complications No immediate complications Condition Stable Disposition PACU [facility] Billing Surgery - Charge Forward: Surgery Billing (TOTAL KNEE [id number])
[2023-04-22 09:40] LABS: Glucose Point of Care 105 mg/dl (65-105)
[2023-04-22] MEDS: fentaNYL CITRATE INJ (*CRX) 100 MCG/2 ML VIAL 25 MCG IV PUSH ×7 (10:04→10:56)
[2023-04-22] MEDS: HYDROcodone/acetaminophen (*CRX) 5-325 MG TABLET 1 TAB PO (12:04)
[2023-04-22 12:08] LABS: Glucose Point of Care 124 mg/dl (65-105)
--- NOTE | 2023-04-22 12:09 | ADMGEN ---
This patient, Alicia Del Toro, was admitted to Medical Room 254-01. Patient/family oriented to hospital policies and general routines including ID bracelet, bed and alarms, visiting hours, pain management, procedures, bathroom and other care routines, personal items, smoking policy, room service/diet, and visiting hours. Information on how to activate the Rapid Response Team has been discussed. Patient/Family are encouraged to report perceived risks to care and to ask questions if they do not understand what they are told or what they should do.
[2023-04-22] MEDS: DIPHENHYDRAMINE 1%/ZINC 0.1% CREAM 30 GM TUBE 1 APPLIC TOPICAL (12:37)
[2023-04-22] MEDS: SENNA/DOCUSATE SODIUM TABLET 2 TAB PO (16:41)
[2023-04-22] MEDS: CELECOXIB 200 MG CAPSULE PO (16:41)
[2023-04-22] MEDS: HYDROcodone/acetaminophen (*CRX) 5-325 MG TABLET 2 TAB PO ×2 (16:42→23:13)
[2023-04-22 17:17] LABS: Glucose Point of Care 214 mg/dl (65-105)
--- NOTE | 2023-04-22 17:37 | PHAR ---
HOME MED VERIFIED = [facility], [place], [place] RX [id number] GEMTESA 75 MG 1 TABLET DAILY. LIGHT GREEN OVAL TAB IMPRINTED WITH V75 .
--- NOTE | 2023-04-22 18:22 | PM.IMCN ---
Assessment and Plan Assessment and plan (1) Osteoarthritis of knees, bilateral: Code(s): M17.0 - Bilateral primary osteoarthritis of knee Status: Acute Assessment and Plan: Right total knee arthroplasty done on 04/22/2023 by Joshua KATE. primary management through Orthopedic team. - use IS - neurovasc checks - see order for intervals - SCDs - resume diet - diabetic - pain management - zofran PRN for nausea - monitor labs in AM - CBC and BMP - bowel regimen: docusate/senna, polyethylene glycol - maintenance fluids: NS 125 mL/hr x8 hrs - prophylactic atb - Ancef x4 - PT/OT eval and treat (2) Type 2 diabetes mellitus: Qualifiers: Diabetes mellitus complication status: with hyperglycemia Diabetes mellitus intermediate insulin use: with buttermaker helper use Qualified Code(s): E11.65 - Type 2 diabetes mellitus with hyperglycemia; Z79.4 - buttermaker helper (current) use of insulin Code(s): E11.9 - Type 2 diabetes mellitus without complications Status: Acute Assessment and Plan: - hypoglycemia protocol - POC blood glucose ACHS - home medication resumed/held - continue Tresiba 26 units HS, NovoLog 5 units t.i.d. WM; hold Jardiance, Tradjenta, and metformin - correct regimen ordered - low dose TIDWM and HS (3) Depression: Qualifiers: Active/Remission status: remission status unspecified Depression Type: major depressive disorder Major depression recurrence: recurrent Qualified Code(s): F33.9 - Major depressive disorder, recurrent, unspecified Code(s): F32.9 - Major depressive disorder, single episode, unspecified Status: Acute Assessment and Plan: - hold escitalopram, continue BuSpar - patient believes she is no longer depressed (4) Paroxysmal A-fib: Code(s): I48.0 - Paroxysmal atrial fibrillation Status: Acute Assessment and Plan: - continue metoprolol - hold warfarin, SCDs ordered (5) Hypertension: Qualifiers: Hypertension type: essential hypertension Qualified Code(s): I10 - Essential (primary) hypertension Code(s): I10 - Essential (primary) hypertension Status: Acute Assessment and Plan: - chronic, currently normotensive - continue home BP medications tomorrow Plan Surgical management of right knee arthritis with total right knee arthroplasty, done on 04/22/2023. No immediate postop complications. Monitor blood pressure and glucose levels. Home Meds/Chronic Conditions -hold home extra-strength Tylenol, Eliquis, Zyrtec, Jardiance, escitalopram, linagliptin, metformin, gabapentin, simvastatin, trazodone -continue NovoLog, Tresiba, lisinopril, metoprolol Diet: Diabetic GI Prophylaxis: Not currently indicated DVT Prophylaxis: SCDs Lines: Peripheral Code Status: DNR HPI Date of Consult Consult date: 04/22/23 Requesting Physician: Nakul Lewis MD Primary Care Provider: SUSANA cOhoa Consult Narrative Reason for consult: Medical Managment Narrative: Alicia Del Toro is a 73 year old female presents here for surgical management of hiuy-up-auhr arthritis in her right knee with PMH of AFib, CAD, HLD, HTN, IBS, trigeminal neuralgia, DM2, depression/anxiety, and previous brain bleed x2 (fall, spontaneous). Patient presents here for surgical management of extn-nr-agef arthritis in her right knee. Pain has been ongoing for months to years. Worsens with activity, relieved with rest, and currently affecting her ADLs. Example sided to orthopedic team was walking and or working around her house. Antalgic gait, crepitus and valgus deformity noted in office. Patient underwent total right knee arthroplasty today, 04/21. No immediate postop complications. Currently reporting itching and restlessness. No hives or SOB. Initial VS at presentation: 97.8 F, HR 68, RR 18, 130/64, 98% on RA. Preop workup: WBC 13, no anemia, creatinine 0.8, A1c 7.1. XR of the knee s
[2023-04-22] MEDS: METOPROLOL TARTRATE 25 MG TABLET PO (20:15)
[2023-04-22] MEDS: INSULIN ASPART (*BKC) 100 UNITS/ML SUB-Q (20:15)
[2023-04-22 21:12] LABS: Glucose Point of Care 348 mg/dl (65-105)
[2023-04-22] MEDS: MELATONIN 3 MG TABLET PO (23:14)
[2023-04-22] MEDS: diphenhydrAMINE HCl CAP 25 MG CAPSULE PO (23:14)
[2023-04-23 04:49] VITALS: BP 100/51; PULSE 85; RESP 20; TEMP 36.3; O2SAT 90
[2023-04-23] MEDS: HYDROcodone/acetaminophen (*CRX) 5-325 MG TABLET 2 TAB PO (05:01)
[2023-04-23 06:06] LABS: Basophils Absolute Auto 0.1 K/mm3 (0.0-0.1); Basophils Percent Auto 0.4 % (0.2-1.2); Eosinophils Percent Auto 0.3 % (0-4.4); Hematocrit 33.8 % (37.0-47.0); Hemoglobin 10.2 g/dL (12.0-15.0); Immature Granulocyte Absolute 0.04 K/mm3 (0.00-0.031); Immature Granulocyte Percent A 0.3 % (0-0.5); Lymphocytes Absolute Auto 2.13 K/mm3 (0.9-3.2); Lymphocytes Percent Auto 17.7 % (18.3-44.2); Mean Corpuscular HGB Conc 30.2 g/dl (32-36); Mean Corpuscular Hemoglobin 27.3 pg (26-34); Mean Corpuscular Volume 90.4 fl (80-100); Mean Platelet Volume 10.8 fl (7.4-10.4); Monocytes Absolute Auto 1.6 K/mm3 (0.1-0.6); Monocytes Percent Auto 12.9 % (2.6-8.5); Neutrophils Absolute Auto 8.2 K/mm3 (1.3-6.7); Neutrophils Percent Auto 68.4 % (45.5-73.1); Platelet Count Result 227 k/mm3 (150-375); Red Blood Count 3.74 M/mm3 (4.2-5.4); Red Cell Distribution Width 14.8 % (11.5-14.5)
[2023-04-23 06:19] LABS: Anion Gap 4 mmol/L (8-16); Blood Urea Nitrogen 24 mg/dL (7-17); Calcium 7.8 mg/dL (8.4-10.2); Carbon Dioxide 27 mmol/L (22-30); Chloride 106 mmol/L (98-107); Estimated CRCL calculation 50 ml/min; Estimated Glomerular Filt Rate 55; Glucose 158 mg/dL (65-110); Potassium 3.7 mmol/L (3.4-5.0); Sodium 137 mmol/L (137-145)
--- NOTE | 2023-04-23 06:46 | PM.PNORT ---
Progress Note: A&P Assessment and Plan (1) Osteoarthritis of knees, bilateral: Code(s): M17.0 - Bilateral primary osteoarthritis of knee Status: Acute (2) History of knee replacement procedure of right knee: Code(s): Z96.651 - Presence of right artificial knee joint Status: Acute Assessment and Plan: Patient underwent total knee replacement right. She is progressing slowly. Subjective Subjective Date/Time Seen: 04/23/23 06:46 Post Op day: 1 Principal diagnosis: Right Total Knee Interval history: Patient underwent right total knee arthroplasty for [id number] arthritis. Review of Systems Review of Systems: All systems reviewed & are unremarkable except as noted in HPI and below Exam Narrative: Dressing is intact. She wiggles her toes. Resp: Effort & Inspection: normal respiratory effort Cardio: Rate: regular rate Rhythm: regular rhythm Objective Data Vital Signs Vital Signs: Vital Signs - 24 hr 04/22/23 09:28 04/22/23 09:40 04/22/23 09:55 Temperature 97.5 F L Pulse Rate 81 82 79 Respiratory Rate 12 15 14 Blood Pressure 92/56 L 124/78 119/66 Pulse Oximetry 98 98 98 Oxygen Delivery Simple Face Mask Nasal Cannula Nasal Cannula Oxygen Flow Rate 10 4 2 04/22/23 10:10 04/22/23 10:25 04/22/23 10:40 Temperature Pulse Rate 77 80 81 Respiratory Rate 12 14 10 L Blood Pressure 117/60 107/71 110/58 L Pulse Oximetry 97 95 93 Oxygen Delivery Nasal Cannula Nasal Cannula Nasal Cannula Oxygen Flow Rate 2 2 2 04/22/23 10:55 04/22/23 11:55 04/22/23 12:10 Temperature 98.1 F 98.1 F Pulse Rate 83 79 80 Respiratory Rate 12 18 18 Blood Pressure 117/78 102/51 L 107/54 L Pulse Oximetry 94 95 96 Oxygen Delivery Nasal Cannula Oxygen Flow Rate 2 04/22/23 12:40 04/22/23 13:20 04/22/23 13:40 Temperature 98.3 F 98.1 F Pulse Rate 87 90 Respiratory Rate 18 18 Blood Pressure 107/59 L 102/53 L Pulse Oximetry 97 94 Oxygen Delivery Room Air Oxygen Flow Rate 04/22/23 17:41 04/22/23 19:57 04/22/23 20:15 Temperature 97.8 F 98.0 F Pulse Rate 99 98 98 Respiratory Rate 18 20 Blood Pressure 120/60 104/52 L Pulse Oximetry 94 95 Oxygen Delivery Oxygen Flow Rate 04/22/23 23:53 04/23/23 04:49 Temperature 98 F 97.3 F L Pulse Rate 95 85 Respiratory Rate 20 20 Blood Pressure 111/51 L 100/51 L Pulse Oximetry 94 90 Oxygen Delivery Oxygen Flow Rate Intake/Output Intake/Output: Intake & Output 04/20/23 04/21/23 04/22/23 04/23/23 23:59 23:59 23:59 23:59 Intake Total 500 Balance 500 Meds/Results Medications: Active Medications Generic Name Dose Route Start Last Admin Trade Name Freq PRN Reason Stop Dose Admin Acetaminophen 1,000 mg 04/22/23 11:09 Acetaminophen 500 Mg Tablet PO Q6H PRN Pain Rated 1-3 Hydrocodone Bitart/Acetaminophen 2 tab 04/22/23 11:09 04/23/23 05:01 Hydrocodone/Acetaminophen (*Crx) 5-325 Mg Tablet PO 2 tab Q6H PRN Administration Pain Rated 7-10 Hydrocodone Bitart/Acetaminophen 1 tab 04/22/23 11:09 04/22/23 12:04 Hydrocodone/Acetaminophen (*Crx) 5-325 Mg Tablet PO 1 tab Q4H PRN Administration Pain Rated 4-6 Buspirone HCl 5 mg 04/23/23 09:00 Buspirone Hcl 5 Mg Tablet PO BID ADAM Celecoxib 200 mg 04/22/23 17:00 04/22/23 16:41 Celecoxib 200 Mg Capsule PO 200 mg BIDWM ADAM Administration Dextrose 12.5 gm 04/22/23 19:14 Dextrose 50% 25 Gm/50 Ml Syringe IV PUSH PRN PRN Hypoglycemia Protocol Diphenhydramine HCl 25 mg 04/22/23 22:51 04/22/23 23:14 Diphenhydramine Hcl Cap 25 Mg Capsule PO 25 mg ONCE PRN Administration Itching Fentanyl Citrate 25 mcg 04/22/23 22:49 Fentanyl Citrate Inj (*Crx) 100 Mcg/2 Ml Vial IV PUSH Q4H PRN Pain Rated 7-10 Glucagon 1 mg 04/22/23 19:14 Glucagon For Inj 1 Mg Vial IM PRN PRN Hypoglycemia Protocol Glucose 15 gm 04/22/23 19:14
--- NOTE | 2023-04-23 06:49 | PM.DS ---
DS: Admitting Diagnosis Discharge Date 04/22/23 Admitting Diagnosis Osteoarthritis right knee DS: Discharge Diagnosis Discharge Diagnosis Plan Osteoarthritis right knee status post total knee arthroplasty, right. DS: Summary Hospital Course Hospital Course: Patient underwent total knee arthroplasty in the right knee. She is progressing slowly at this time. We will dismiss later today pending ability to ambulate care for herself. Status at Discharge Functional status at discharge: uses cane/walker Time Spent with Patient Time attestation: Total time spent providing and/or coordinating discharge services: Exam Narrative: On exam the patient's dressing is intact. The leg is straighter. She can wiggle her toes. She has pain with motion. She walks with cyst. DS: Data Data Completed and Pending Labs on day of discharge: Labs from last 24 hours 04/23/23 04/22/23 04/22/23 05:44 20:04 17:13 WBC 12.0 H RBC 3.74 L Hgb 10.2 L D Hct 33.8 L MCV 90.4 MCH 27.3 MCHC 30.2 L RDW 14.8 H Plt Count 227 MPV 10.8 H Immature Gran % (Auto) 0.3 Neut % (Auto) 68.4 Lymph % (Auto) 17.7 L [place] % (Auto) 12.9 H Eos % (Auto) 0.3 Baso % (Auto) 0.4 Lymph # (Auto) 2.13 [place] # (Auto) 1.6 H Eos # (Auto) 0.0 Baso # (Auto) 0.1 Abs Immat Gran (auto) 0.04 H Absolute Neuts (auto) 8.2 H Absolute Nucleated RBC 0.0 Nucleated RBC % 0.0 Sodium 137 Potassium 3.7 Chloride 106 Carbon Dioxide 27 Anion Gap 4 L BUN 24 H Creatinine 1.00 Estim Creat Clear Calc 50 Estimated GFR 55 L Glucose 158 H POC Capillary Glucose 348 H 214 H Calcium 7.8 L 04/22/23 04/22/23 04/22/23 12:03 09:36 06:52 WBC RBC Hgb Hct MCV MCH MCHC RDW Plt Count MPV Immature Gran % (Auto) Neut % (Auto) Lymph % (Auto) [place] % (Auto) Eos % (Auto) Baso % (Auto) Lymph # (Auto) [place] # (Auto) Eos # (Auto) Baso # (Auto) Abs Immat Gran (auto) Absolute Neuts (auto) Absolute Nucleated RBC Nucleated RBC % Sodium Potassium Chloride Carbon Dioxide Anion Gap BUN Creatinine Estim Creat Clear Calc Estimated GFR Glucose POC Capillary Glucose 124 H 105 71 Calcium Discharge Plan Discharge Patient Disposition: Home, Self-Care Discharge Instructions: Dr. Nakul Lewis M.D [address] [place] [address] POST-OPERATIVE DISCHARGE INSTRUCTIONS TOTAL KNEE ARTHROPLASTY 1. When resting, do not rest in the chair.When resting, lie on your back, with back flat on the couch or bed, with leg elevated above heart to minimize swelling. You may put a pillow under your head. . Significant swelling could indicate a blood clot and if this occurs call the office (or go to the ER) to have a venous ultrasound. Therefore, do not rest in a chair. 2. At least five times a day spend several minutes stretching your knee into flexion while sitting in the chair and also stretching your knee out straight The abilities to bend your knee fulling and straighten your knee fully are two most important knee functions to focus on during your recovery. 3. It is ok to sit in chair to eat, use the toilet and receive a guest and to do your stretching exercises, but, sitting in a chair will cause your leg to swell. Therefore, avoid additional time sitting in the chair. and don't rest in the chair. 4. Wound Care: Nursing will give you an additional Mepilex dressing at the time of discharge. Patient to remove the dressing and apply a new Mepilex dressing at home 7 days after surgery and leave the dressing on until seen in office. 5. May shower with a Mepilex dressing in place.The water will run off the dressing. 6. Unless you are told otherwise, you may put full weight on your operated leg. Use a walker for balance and practice walking as nor
[2023-04-23 08:09] LABS: Glucose Point of Care 138 mg/dl (65-105)
[2023-04-23 08:48] VITALS: BP 108/61; PULSE 83; RESP 16; O2SAT 96
[2023-04-23 08:52] VITALS: PULSE 83
[2023-04-23] MEDS: busPIRone HCL 5 MG TABLET PO (08:52)
[2023-04-23] MEDS: METOPROLOL TARTRATE 25 MG TABLET PO (08:52)
[2023-04-23] MEDS: SENNA/DOCUSATE SODIUM TABLET 2 TAB PO (08:52)
[2023-04-23] MEDS: predniSONE 10 MG TABLET PO (08:53)
[2023-04-23] MEDS: diphenhydrAMINE HCl CAP 25 MG CAPSULE 50 MG PO (08:53)
[2023-04-23] MEDS: CELECOXIB 200 MG CAPSULE PO (08:53)
[2023-04-23] MEDS: ACETAMINOPHEN 500 MG TABLET 1000 MG PO (08:58)
[2023-04-23] MEDS: polyethylene glycoL 3350 17 GM POWD.PACK PO (08:58)
[2023-04-23] MEDS: ceFAZolin 2 GM/D5W 50 ML 2 GM/50 ML BAG IVPB (09:04)
[2023-04-23] MEDS: INSULIN ASPART (*BKC) 100 UNITS/ML SUB-Q (09:04)
== END 2023-04-23 11:35 | disposition home or self-care (01) ==
LOC: ANHSURGERY 06:07 → ANH2MED 11:56
PROVIDERS: PCP Clinical Nurse Specialist; Visit Provider Orthopaedic Surgery
PROC: (CPT 27447; principal; 2023-04-22 07:30)
DX: M17.11 Unilateral primary osteoarthritis, right knee (principal); G89.18 Other acute postprocedural pain; I48.91 Unspecified atrial fibrillation; E11.40 Type 2 diabetes mellitus with diabetic neuropathy, unspecified; I25.10 Atherosclerotic heart disease of native coronary artery without angina pectoris; I10 Essential (primary) hypertension; E78.5 Hyperlipidemia, unspecified; Z86.73 Personal history of transient ischemic attack (TIA), and cerebral infarction without residual deficits; F33.9 Major depressive disorder, recurrent, unspecified; F41.9 Anxiety disorder, unspecified; Z79.84 Long term (current) use of oral hypoglycemic drugs; Z79.4 Long term (current) use of insulin; Z79.01 Long term (current) use of anticoagulants; Z87.891 Personal history of nicotine dependence; E66.9 Obesity, unspecified; Z68.32 Body mass index [BMI] 32.0-32.9, adult
CPT/HCPCS: 27447; 64447; 36415; 73560; 80048; 80307; 82040; 82948; 83036; 85025; 86850; 86880; 86900; 86901; 86902; 86922; 97110; 97116; 97165; 97530; 97535; A9270; C1713; C1776; J0171; J0690; J1100; J1170; J1200; J1815; J1885; J2250; J2371; J2405; J2704; J2795; J3010; J3370; J7120; J7512

== ENCOUNTER 2023-04-26 19:31 | Inpatient (IN) | payer MEDICARE, SELFPAY ==
--- NOTE | ~2023-04-26 | US_ITS ---
US venous doppler LE RT DATE: 04/27/2023 11:37 INDICATION: Pain, edema of right lower extremity TECHNIQUE: Real-time and color flow imaging and Doppler analysis COMPARISON: None FINDINGS: Right greater saphenous vein is patent. There is spontaneous and phasic flow and normal aug mentation, color flow signal and compression of the deep veins of the right lower extremity. IMPRESSION: No evidence of deep venous thrombosis of right lower extremity Reviewed, dictated and finalized at [facility]. Reviewed, dictated and finalized at [facility]. PRACTITIONER
--- NOTE | ~2023-04-26 | XR_ITS ---
EXAMINATION: XR hip RT 2V w AP pelvis DATE: 04/27/2023 13:03 INDICATION: Right hip pain. TECHNIQUE: An anteroposterior view of the pelvis and 2 views of right hip were obtained. COMPARISON: Pelvis and right hip radiographs 03/15/21 FINDINGS: There is lumbar dextrocurvature and moderate spondylosis. There are changes of anterior and posterior fusion procedures at L5-S1. No fracture. There is moderate osteoarthritis of the hips. The re is a ventriculoperitoneal shunt on the left. IMPRESSION: 1. Moderate osteoarthritis of the hips. Reviewed, dictated and finalized at location [facility]. D INFRASTRUCTURE ARCHITECT
--- NOTE | ~2023-04-26 | XR_ITS ---
EXAMINATION: XR knee RT 3V DATE: 04/26/2023 20:17 INDICATION: Right knee pain. Postop. TECHNIQUE: 3 views of right knee were obtained. COMPARISON: Right knee radiographs 04/02/2023 FINDINGS: There is a total right knee arthroplasty with patellar resurfacing in near-anatomic alignme nt. No fracture. There is a small knee joint effusion. Anterior skin beverley are noted. IMPRESSION: 1. Total right knee arthroplasty in near-anatomic alignment. Reviewed, dictated and finalized at location [facility]. SHOP WORKER
[2023-04-26 19:33] VITALS: BP 154/63; PULSE 75; RESP 17; TEMP 36.4; O2SAT 99
--- NOTE | 2023-04-26 20:08 | ED.LOWEXIN ---
HPI - Extremity Injury (Lower) General Chief Complaint: Extremity Injury, Lower Stated Complaint: rt knee pain after surgery Time Seen by Provider: 04/26/23 19:53 Source: patient and family Mode of arrival: wheelchair Limitations: no limitations History of Present Illness HPI Narrative: This is a 73 year old female that presents to the ER for right lower extremity pain. Reports she underwent right TKA [address] Lewis. Reports pain that is not relieved with her prescribed pain medication. Reports worsening swelling and bruising in the leg. Reports some tingling in the calf that has been present since surgery. Denies fever, erythema. Related Data Home Medications Medication Instructions Recorded Confirmed apixaban 5 mg tablet (Eliquis) 5 mg PO BID 01/21/20 04/15/23 metoprolol tartrate 25 mg tablet 25 mg PO BID 01/21/20 04/15/23 acetaminophen 500 mg capsule 1,000 mg PO PRN PRN Pain 04/15/23 04/15/23 cetirizine 10 mg capsule (Zyrtec) 10 mg PO DAILY 04/15/23 04/15/23 empagliflozin 25 mg tablet 25 mg PO DAILY 04/15/23 04/15/23 (Jardiance) insulin aspart U-100 100 unit/mL 5 unit subcut AC 04/15/23 04/15/23 (3 mL) subcutaneous pen (Novolog FlexPen U-100 Insulin aspart) insulin degludec 200 unit/mL (3 26 unit subcut QPM 04/15/23 04/15/23 mL) subcutaneous pen (Tresiba FlexTouch U-200 insulin) vibegron 75 mg tablet (Gemtesa) 75 mg PO DAILY 04/15/23 04/15/23 Allergies Allergy/AdvReac Type Severity Reaction Status Date / Time adhesive tape Allergy Intermediate Blister Verified 04/22/23 06:32 hydromorphone [From Dilaudid] Allergy Intermediate Itching Verified 04/22/23 06:32 morphine Allergy Intermediate Itching Verified 04/22/23 06:32 Review of Systems Review of Systems: CONSTITUTIONAL: Denies fever CARDIOVASCULAR: Reports edema. Denies chest pain RESPIRATORY: Denies dyspnea. SKIN: Denies erythema MUSCULOSKELETAL: Reports joint pain, and myalgia. NEUROLOGIC: Denies numbness, or weakness. All systems reviewed & are unremarkable except as noted in HPI and below PMFSH Past Medical History Medical History A-fib Allergies Anxiety Arthritis Asthma Back injury L5 SI injection Back pain Brain bleed (2) CAD (coronary artery disease) Colon polyps Costochondritis Depression Diabetic neuropathy DVT (deep venous thrombosis) (~1979) LLE Generalized pruritus Hyperlipidemia Hypertension IBS (irritable bowel syndrome) Insomnia Leukocytosis Obesity Osteopenia Postmenopausal Thyroid disorder TIA (transient ischemic attack) Trigeminal neuropathy Type 2 diabetes mellitus Urinary incontinence Visceral hypersensitivity syndrome Surgical History Surgical History H/O foot surgery Left and right H/O knee surgery Left H/O: hysterectomy History of back surgery History of surgery of head placement of shunt Family History Family History Mother Muscular dystrophy Father Carcinoma of colon Grandparent Acute myocardial infarction Ruptured appendix Sibling Acute myocardial infarction Social History Social History Smoking packs per day: 0.75 Smoking cigarettes per day: 15.0 Years smoked: 5 Smoking pack-years: 3.75 Smoking status: Former smoker Tobacco type: cigarettes Smoking end date: 02/18/15 Additional smoking assessment comments: DENIES ANY FORM OF TOBACCO USE Alcohol intake: never Substance use: never Do You Feel Safe in your Home?: Yes Lack of Transportation: No Lack of Food: Never True Current Housing: I Have Housing Concerned About Future Housing: No Difficulty Paying Gas/Electric Bills: No Difficulty Paying for Meds: No Currently Unemployed: No Education: High School Diploma/GED Difficulty w/ Childcare or Family Care:
[2023-04-26 20:09] VITALS: BP 137/63; PULSE 86; RESP 15; O2SAT 97
[2023-04-26] MEDS: diazePAM INJ (*CRX) 10 MG/2 ML SYRINGE 5 MG IM (20:15)
[2023-04-26] MEDS: ACETAMINOPHEN 325 MG TABLET 650 MG PO (20:16)
[2023-04-26 20:38] LABS: Basophils Absolute Auto 0.1 K/mm3 (0.0-0.1); Basophils Percent Auto 0.4 % (0.2-1.2); Eosinophils Absolute Auto 0.5 K/mm3 (0-0.3); Eosinophils Percent Auto 3.5 % (0-4.4); Hematocrit 34.4 % (37.0-47.0); Hemoglobin 10.8 g/dL (12.0-15.0); Immature Granulocyte Absolute 0.07 K/mm3 (0.00-0.031); Immature Granulocyte Percent A 0.5 % (0-0.5); Lymphocytes Absolute Auto 3.32 K/mm3 (0.9-3.2); Lymphocytes Percent Auto 23.5 % (18.3-44.2); Mean Corpuscular HGB Conc 31.4 g/dl (32-36); Mean Corpuscular Hemoglobin 27.8 pg (26-34); Mean Corpuscular Volume 88.4 fl (80-100); Mean Platelet Volume 10.2 fl (7.4-10.4); Monocytes Absolute Auto 1.1 K/mm3 (0.1-0.6); Monocytes Percent Auto 7.7 % (2.6-8.5); Neutrophils Absolute Auto 9.1 K/mm3 (1.3-6.7); Neutrophils Percent Auto 64.4 % (45.5-73.1); Platelet Count Result 287 k/mm3 (150-375); Red Blood Count 3.89 M/mm3 (4.2-5.4); Red Cell Distribution Width 14.8 % (11.5-14.5); White Blood Count 14.1 K/mm3 (4.5-10.0)
[2023-04-26 20:47] LABS: Anion Gap 3 mmol/L (8-16); Blood Urea Nitrogen 26 mg/dL (7-17); Calcium 8.8 mg/dL (8.4-10.2); Carbon Dioxide 29 mmol/L (22-30); Chloride 105 mmol/L (98-107); Estimated CRCL calculation 62 ml/min; Estimated Glomerular Filt Rate > 60; Glucose 155 mg/dL (65-110); Potassium 3.8 mmol/L (3.4-5.0); Sodium 137 mmol/L (137-145)
[2023-04-26 20:48] LABS: INR 1.2; Prothrombin Time 15.5 Seconds (11.1-14.7)
[2023-04-26 20:49] LABS: Partial Thromboplastin Time 32.5 SECONDS (22.3-36.8)
[2023-04-26 22:21] LABS: D Dimer 2.33 ug/mL (<0.48)
[2023-04-26] MEDS: oxyCODONE HCL (*CRX) 5 MG TAB IR PO (22:32)
--- NOTE | 2023-04-26 22:45 | PM.IMHP ---
H&P: HPI History of Present Illness Date/Time: 04/26/23 22:45 Chief Complaint: KNEE PAIN Narrative: THIS IS A 73-YEAR-OLD FEMALE WITH PAST MEDICAL HISTORY SIGNIFICANT FOR DJD, INSULIN-DEPENDENT DIABETES MELLITUS DYSLIPIDEMIA, ATRIAL FIBRILLATION, CORONARY ARTERY DISEASE, PERIPHERAL DIABETIC NEUROPATHY. PATIENT IS STATUS POST RIGHT KNEE TOTAL ARTHROPLASTY PRESENTS TODAY TO THE EMERGENCY ROOM DUE TO PAIN UNABLE TO AMBULATE, LEG SWELLING, HEMATOMA OF THE THIGH. EXAMINATION: XR knee RT 3V DATE: 04/26/2023 20:17 INDICATION: Right knee pain. Postop. TECHNIQUE: 3 views of right knee were obtained. COMPARISON: Right knee radiographs 04/02/2023 FINDINGS: There is a total right knee arthroplasty with patellar resurfacing in near-anatomic alignment. No fracture. There is a small knee joint effusion. Anterior skin beverley are noted. IMPRESSION: 1. Total right knee arthroplasty in near-anatomic alignment. Review of Systems Review of Systems: KNEE PAIN, LEG SWELLING, HEMATOMA Constitutional: Constitutional: Denies chills, Denies fatigue, Denies fever(s), Denies malaise and Denies weakness Eyes: Eyes: Denies change in vision ENT: Denies dysphagia and Denies odynophagia Cardiovascular: Cardiovascular: Denies chest pain, Denies radiating jaw, neck or arm pain and Denies palpitations Respiratory: Respiratory: Denies cough and Denies dyspnea Gastrointestinal: Gastrointestinal: Denies abdominal pain, Denies nausea and Denies vomiting Genitourinary: Genitourinary: Denies dysuria Musculoskeletal: Musculoskeletal: Reports arthralgias ( RIGHT KNEE PAIN) Integumentary/Breasts: Skin/Breast: Reports wounds ( RIGHT KNEE) and Reports other ( RIGHT THIGH HEMATOMA) Neurologic: Denies focal weakness and Denies Sensory deficit (Neuro) Psychiatric: Psychiatric: Reports no additional psychiatric complaints and Reports as per HPI Endocrine: Endocrine: Denies cold intolerance, Denies fatigue, Denies flushing, Denies heat intolerance, Denies polyphagia, Denies polydipsia and Denies palpitations Hematologic/Lymphatic: Hematologic/Lymphatic: Reports no additional hematologic/lymphatic complaints and Reports as per HPI Allergic/Immunologic: Allergic/Immunologic: Reports no additional allergic/immunologic complaints and Reports as per HPI PMFSH Past Medical History Medical History A-fib Allergies Anxiety Arthritis Asthma Back injury L5 SI injection Back pain Brain bleed (2) CAD (coronary artery disease) Colon polyps Costochondritis Depression Diabetic neuropathy DVT (deep venous thrombosis) (~1979) LLE Generalized pruritus Hyperlipidemia Hypertension IBS (irritable bowel syndrome) Insomnia Leukocytosis Obesity Osteopenia Postmenopausal Thyroid disorder TIA (transient ischemic attack) Trigeminal neuropathy Type 2 diabetes mellitus Urinary incontinence Visceral hypersensitivity syndrome Surgical History Surgical History H/O foot surgery Left and right H/O knee surgery Left H/O: hysterectomy History of back surgery History of surgery of head placement of shunt Family History Family History Mother Muscular dystrophy Father Carcinoma of colon Grandparent Acute myocardial infarction Ruptured appendix Sibling Acute myocardial infarction Social History Social History Smoking packs per day: 0.75 Smoking cigarettes per day: 15.0 Years smoked: 5 Smoking pack-years: 3.75 Smoking status: Former smoker Tobacco type: cigarettes Second hand tobacco smoke exposure: Yes Smoking end date: 02/18/15 Additional smoking assessment comments: DENIES ANY FORM OF TOBACCO USE Alcohol intake: never Substance use: never Do You Feel Safe in your Home?: Yes Lack of Transporta
[2023-04-27] VITALS (7 sets, daily range): BP systolic 120–155; BP diastolic 55–83; PULSE 74–86; RESP 13–16; TEMP 36.1–36.5; O2SAT 95–100; BMI 32.3
--- NOTE | 2023-04-27 00:52 | ADMGEN ---
This patient, Alicia Del Toro, was admitted to [facility] Surg Room 314-02. Patient/family oriented to hospital policies and general routines including ID bracelet, bed and alarms, visiting hours, pain management, procedures, bathroom and other care routines, personal items, smoking policy, room service/diet, and visiting hours. Information on how to activate the Rapid Response Team has been discussed. Patient/Family are encouraged to report perceived risks to care and to ask questions if they do not understand what they are told or what they should do.
[2023-04-27] MEDS: ACETAMINOPHEN 500 MG TABLET 1000 MG PO (02:50)
[2023-04-27] MEDS: HYDROmorphone HCL INJ (*CRX) 1 MG/ML SYR IV PUSH (02:50)
[2023-04-27] MEDS: traMADol HCL (*CRX) 50 MG TABLET PO ×2 (08:38→16:53)
[2023-04-27] MEDS: lisinopriL 20 MG TABLET 40 MG PO (08:38)
[2023-04-27] MEDS: busPIRone HCL 5 MG TABLET PO ×2 (08:39→16:51)
[2023-04-27] MEDS: METOPROLOL TARTRATE 25 MG TABLET PO ×2 (08:39→20:06)
[2023-04-27] MEDS: LORATADINE 10 MG TABLET PO (08:39)
[2023-04-27] MEDS: GABAPENTIN 300 MG CAPSULE PO ×2 (08:39→16:51)
[2023-04-27] MEDS: predniSONE 10 MG TABLET PO (08:39)
[2023-04-27 11:40] LABS: Glucose Point of Care 161 mg/dl (65-105)
[2023-04-27] MEDS: INSULIN ASPART (*BKC) 100 UNITS/ML SUB-Q (12:11)
--- NOTE | 2023-04-27 12:29 | PM.IMPN ---
Progress Note: A&P Assessment and Plan (1) Adult failure to thrive: Code(s): R62.7 - Adult failure to thrive Status: Acute (2) S/P total knee arthroplasty: Qualifiers: Laterality: right Qualified Code(s): Z96.651 - Presence of right artificial knee joint Code(s): Z96.659 - Presence of unspecified artificial knee joint Status: Acute (3) Osteoarthritis of knees, bilateral: Code(s): M17.0 - Bilateral primary osteoarthritis of knee Status: Acute (4) Lumbar back pain: Code(s): M54.50 - Low back pain, unspecified Status: Acute (5) Type 2 diabetes mellitus: Qualifiers: Diabetes mellitus longterm insulin use: with bed bug exterminator use Diabetes mellitus complication status: with hyperglycemia Qualified Code(s): E11.65 - Type 2 diabetes mellitus with hyperglycemia; 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 Code(s): E11.9 - Type 2 diabetes mellitus without complications Status: Acute (6) Diabetic neuropathy: Qualifiers: Diabetes mellitus type: type 2 Diabetes mellitus complication detail: with other neurological complication Qualified Code(s): E11.49 - Type 2 diabetes mellitus with other diabetic neurological complication Code(s): E11.40 - Type 2 diabetes mellitus with diabetic neuropathy, unspecified Status: Acute (7) CAD (coronary artery disease): Code(s): I25.10 - Atherosclerotic heart disease of [place] coronary artery without angina pectoris Status: Acute (8) Paroxysmal A-fib: Code(s): I48.0 - Paroxysmal atrial fibrillation Status: Acute (9) Hypertension: Qualifiers: Hypertension type: essential hypertension Qualified Code(s): I10 - Essential (primary) hypertension Code(s): I10 - Essential (primary) hypertension Status: Acute (10) Hematoma of right thigh: Code(s): S70.11XA - Contusion of right thigh, initial encounter Status: Acute Plan [age]-year-old female who presented to the ER of and swelling. She underwent right TKA by Dr. Lewis. Her pain got worse and was not relieved with the prescribed pain medication associated bruising and swelling and hence came to the ER for evaluation. She has been on apixaban post surgery so takes his medication for her underlying atrial fibrillation. In the ED her vitals were stable she was afebrile nontoxic. No erythema or warmth IA and back over 5 noted some edema of the lower leg. Neuro status status was intact. Mild leukocytosis 14 a noted normal static anemia heme 10.8 E were reasonable. Right knee x-ray seen near anatomic alignment. D-dimer was elevated ultrasound was performed this a.m. reported to be negative. Will continue with apixaban. Right hip pain is noted and will get X person has been consulted and await his on pain control and PT OT will be ordered. May need rehabilitation. Subjective Date/time seen: 04/27/23 12:29 Interval history: [age]-year-old female who presented to the ER of and swelling. She underwent right TKA by Dr. Lewis. Her pain got worse and was not relieved with the prescribed pain medication associated bruising and swelling and hence came to the ER for evaluation. She has been on apixaban post surgery so takes his medication for her underlying atrial fibrillation. In the ED her vitals were stable she was afebrile nontoxic. No erythema or warmth IA and back over 5 noted some edema of the lower leg. Neuro status status was intact. Mild leukocytosis 14 a noted normal static anemia heme 10.8 E were reasonable. Right knee x-ray seen near anatomic alignment. D-dimer was elevated ultrasound was performed this a.m. reported to be negative. Will continue with apixaban. Right hip pain is noted and will get X person has been consulted and await his on pain control and PT OT will be ordered. May need rehabilitation. Review of Systems Review of Systems: All systems reviewed & are unremarkabl
[2023-04-27 16:14] LABS: Glucose Point of Care 127 mg/dl (65-105)
[2023-04-27] MEDS: INSULIN GLARGINE (*BKC) 100 UNITS/ML 26 UNITS SUB-Q (18:52)
[2023-04-27] MEDS: traZODone HCL 50 MG TABLET 100 MG PO (20:05)
[2023-04-27] MEDS: HYDROcodone/acetaminophen (*CRX) 5-325 MG TABLET 1 TAB PO (20:06)
[2023-04-27] MEDS: SIMVASTATIN 20 MG TABLET 40 MG PO (20:06)
[2023-04-27] MEDS: ESCITALOPRAM OXALATE 10 MG TABLET 20 MG PO (20:06)
[2023-04-27 20:47] LABS: Glucose Point of Care 276 mg/dl (65-105)
[2023-04-27] MEDS: HYDROmorphone HCL INJ (*CRX) 1 MG/ML SYR 0.5 MG IV PUSH (21:48)
[2023-04-28] MEDS: HYDROcodone/acetaminophen (*CRX) 5-325 MG TABLET 1 TAB PO ×4 (00:47→21:22)
--- NOTE | 2023-04-28 03:54 | PC.NURSE ---
Daylight Savings Time For Daylight Savings Time Ending in the Fall - Clocks are moved back. For Daylight Savings Time Beginning in the Spring - Clocks are moved ahead. For [facility], the time of change occurs at 0200 hrs. Time is taken from the field observer. This entry on the patient's chart recognizes the change in time reflected during documentation. Example: 2 entries for vital signs may be charted for 0200 hrs.
[2023-04-28 05:44] VITALS: BP 119/66; PULSE 72; RESP 16; TEMP 36.6; O2SAT 96
[2023-04-28 07:28] LABS: Glucose Point of Care 118 mg/dl (65-105)
[2023-04-28 09:06] VITALS: PULSE 72
[2023-04-28] MEDS: METOPROLOL TARTRATE 25 MG TABLET PO ×2 (09:06→21:24)
[2023-04-28] MEDS: LORATADINE 10 MG TABLET PO (09:07)
[2023-04-28] MEDS: busPIRone HCL 5 MG TABLET PO ×2 (09:07→17:23)
[2023-04-28] MEDS: lisinopriL 20 MG TABLET 40 MG PO (09:07)
[2023-04-28] MEDS: GABAPENTIN 300 MG CAPSULE PO ×2 (09:07→17:23)
[2023-04-28] MEDS: INSULIN ASPART (*BKC) 100 UNITS/ML SUB-Q ×2 (09:08→17:27)
[2023-04-28] MEDS: diphenhydrAMINE HCl CAP 25 MG CAPSULE PO ×2 (10:57→21:20)
[2023-04-28] MEDS: polyethylene glycoL 3350 17 GM POWD.PACK PO (10:57)
[2023-04-28 11:20] LABS: Glucose Point of Care 110 mg/dl (65-105)
--- NOTE | 2023-04-28 12:09 | PM.IMPN ---
Progress Note: A&P Assessment and Plan (1) Adult failure to thrive: Code(s): R62.7 - Adult failure to thrive Status: Acute (2) S/P total knee arthroplasty: Qualifiers: Laterality: right Qualified Code(s): Z96.651 - Presence of right artificial knee joint Code(s): Z96.659 - Presence of unspecified artificial knee joint Status: Acute (3) Osteoarthritis of knees, bilateral: Code(s): M17.0 - Bilateral primary osteoarthritis of knee Status: Acute (4) Lumbar back pain: Code(s): M54.50 - Low back pain, unspecified Status: Acute (5) Type 2 diabetes mellitus: Qualifiers: Diabetes mellitus chcf insulin use: with chcf use Diabetes mellitus complication status: with hyperglycemia Qualified Code(s): E11.65 - Type 2 diabetes mellitus with hyperglycemia; 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0 - Paroxysmal atrial fibrillation Status: Acute (9) Hypertension: Qualifiers: Hypertension type: essential hypertension Qualified Code(s): I10 - Essential (primary) hypertension Code(s): I10 - Essential (primary) hypertension Status: Acute (10) Hematoma of right thigh: Code(s): S70.11XA - Contusion of right thigh, initial encounter Status: Acute Plan [age]-year-old female who presented to the ER of and swelling. She underwent right TKA by Dr. Lewis. Her pain got worse and was not relieved with the prescribed pain medication associated bruising and swelling and hence came to the ER for evaluation. She has been on apixaban post surgery so takes his medication for her underlying atrial fibrillation. In the ED her vitals were stable she was afebrile nontoxic. No erythema or warmth IA and back over 5 noted some edema of the lower leg. Neuro status status was intact. Mild leukocytosis 14 a noted normal static anemia heme 10.8 E were reasonable. Right knee x-ray seen near anatomic alignment. D-dimer was elevated ultrasound was performed this a.m. reported to be negative. Will continue with apixaban. Right hip pain is noted and x-ray noted with moderate osteoarthritis of the hip. Orthopedics has been consulted and await his opinion. P.r.n. hydrocodone for pain control and PT OT ordered. Ambulating independently and might not need SNF placement Subjective Date/time seen: 04/28/23 12:09 Interval history: [age]-year-old female who presented to the ER of and swelling. She underwent right TKA by Dr. Lewis. Her pain got worse and was not relieved with the prescribed pain medication associated bruising and swelling and hence came to the ER for evaluation. She has been on apixaban post surgery so takes his medication for her underlying atrial fibrillation. In the ED her vitals were stable she was afebrile nontoxic. No erythema or warmth IA and back over 5 noted some edema of the lower leg. Neuro status status was intact. Mild leukocytosis 14 a noted normal static anemia heme 10.8 E were reasonable. Right knee x-ray seen near anatomic alignment. D-dimer was elevated ultrasound was performed this a.m. reported to be negative. Will continue with apixaban. Right hip pain is noted and will get X person has been consulted and await his on pain control and PT OT will be ordered. Carlos
[2023-04-28 13:54] VITALS: BP 124/74; PULSE 74; RESP 16; TEMP 36.3; O2SAT 98
[2023-04-28] MEDS: HYDROcodone/acetaminophen (*CRX) 10-325 MG TABLET 1 TAB PO ×2 (14:45→18:41)
[2023-04-28 16:20] LABS: Glucose Point of Care 174 mg/dl (65-105)
[2023-04-28] MEDS: metFORMIN HCL 500 MG TABLET 1000 MG PO (17:23)
[2023-04-28] MEDS: APIXABAN 5 MG TABLET PO (17:23)
[2023-04-28] MEDS: INSULIN GLARGINE (*BKC) 100 UNITS/ML 26 UNITS SUB-Q (17:26)
[2023-04-28 20:53] LABS: Glucose Point of Care 145 mg/dl (65-105)
[2023-04-28] MEDS: ESCITALOPRAM OXALATE 10 MG TABLET 20 MG PO (21:23)
[2023-04-28] MEDS: SIMVASTATIN 20 MG TABLET 40 MG PO (21:23)
[2023-04-28] MEDS: traZODone HCL 50 MG TABLET 100 MG PO (21:23)
[2023-04-28 21:24] VITALS: PULSE 80
[2023-04-28 21:46] VITALS: BP 117/55; PULSE 79; RESP 16; TEMP 36.3; O2SAT 97
[2023-04-29] MEDS: HYDROcodone/acetaminophen (*CRX) 10-325 MG TABLET 1 TAB PO ×4 (01:01→16:45)
[2023-04-29 06:00] VITALS: BP 125/77; PULSE 74; RESP 16; TEMP 36.5; O2SAT 96
[2023-04-29] MEDS: diphenhydrAMINE HCl CAP 25 MG CAPSULE PO (06:03)
[2023-04-29 06:25] LABS: Basophils Absolute Auto 0.1 K/mm3 (0.0-0.1); Basophils Percent Auto 0.6 % (0.2-1.2); Eosinophils Absolute Auto 0.5 K/mm3 (0-0.3); Eosinophils Percent Auto 4.9 % (0-4.4); Hematocrit 35.5 % (37.0-47.0); Hemoglobin 11.2 g/dL (12.0-15.0); Immature Granulocyte Absolute 0.03 K/mm3 (0.00-0.031); Immature Granulocyte Percent A 0.3 % (0-0.5); Lymphocytes Absolute Auto 2.89 K/mm3 (0.9-3.2); Lymphocytes Percent Auto 28.4 % (18.3-44.2); Mean Corpuscular HGB Conc 31.5 g/dl (32-36); Mean Corpuscular Volume 88.8 fl (80-100); Mean Platelet Volume 9.6 fl (7.4-10.4); Monocytes Absolute Auto 0.9 K/mm3 (0.1-0.6); Monocytes Percent Auto 8.3 % (2.6-8.5); Neutrophils Absolute Auto 5.9 K/mm3 (1.3-6.7); Neutrophils Percent Auto 57.5 % (45.5-73.1); Platelet Count Result 312 k/mm3 (150-375); Red Cell Distribution Width 15.1 % (11.5-14.5); White Blood Count 10.2 K/mm3 (4.5-10.0)
[2023-04-29 06:45] LABS: Alanine Aminotransferase 13 U/L (6-35); Albumin Level 3.5 g/dL (3.5-5.1); Alkaline Phosphatase 60 U/L (38-126); Anion Gap 2 mmol/L (8-16); Aspartate Amino Transferase 27 U/L (14-36); Bilirubin,Total 0.7 mg/dL (0.2-1.3); Blood Urea Nitrogen 21 mg/dL (7-17); Calcium 8.9 mg/dL (8.4-10.2); Carbon Dioxide 32 mmol/L (22-30); Chloride 104 mmol/L (98-107); Estimated CRCL calculation 62 ml/min; Estimated Glomerular Filt Rate > 60; Glucose 136 mg/dL (65-110); Magnesium 1.9 mg/dL (1.6-2.3); Potassium 3.6 mmol/L (3.4-5.0); Sodium 138 mmol/L (137-145)
[2023-04-29 08:02] LABS: Glucose Point of Care 119 mg/dl (65-105)
[2023-04-29 09:10] VITALS: PULSE 88
[2023-04-29] MEDS: LORATADINE 10 MG TABLET PO (09:10)
[2023-04-29] MEDS: APIXABAN 5 MG TABLET PO ×2 (09:10→16:47)
[2023-04-29] MEDS: GABAPENTIN 300 MG CAPSULE PO ×2 (09:10→16:47)
[2023-04-29] MEDS: busPIRone HCL 5 MG TABLET PO ×2 (09:10→16:47)
[2023-04-29] MEDS: METOPROLOL TARTRATE 25 MG TABLET PO (09:10)
[2023-04-29] MEDS: lisinopriL 20 MG TABLET 40 MG PO (09:10)
[2023-04-29] MEDS: EMPAGLIFLOZIN 25 MG TABLET PO (09:11)
[2023-04-29] MEDS: metFORMIN HCL 500 MG TABLET 1000 MG PO ×2 (09:11→16:47)
[2023-04-29] MEDS: INSULIN ASPART (*BKC) 100 UNITS/ML SUB-Q (09:12)
[2023-04-29 12:04] LABS: Glucose Point of Care 82 mg/dl (65-105)
[2023-04-29 14:00] VITALS: BP 125/71; PULSE 74; RESP 16; TEMP 36.5; O2SAT 99
--- NOTE | 2023-04-29 15:54 | PM.DS ---
DS: Admitting Diagnosis Discharge Date 04/29/2023 Admitting Diagnosis Knee pain DS: Discharge Diagnosis Discharge Diagnosis (1) Adult failure to thrive: Code(s): R62.7 - Adult failure to thrive Status: Acute (2) S/P total knee arthroplasty: Qualifiers: Laterality: right Qualified Code(s): Z96.651 - Presence of right artificial knee joint Code(s): Z96.659 - Presence of unspecified artificial knee joint Status: Acute (3) Osteoarthritis of knees, bilateral: Code(s): M17.0 - Bilateral primary osteoarthritis of knee Status: Acute (4) Lumbar back pain: Code(s): M54.50 - Low back pain, unspecified Status: Acute (5) Type 2 diabetes mellitus: Qualifiers: Diabetes mellitus jail insulin use: with tentering machine off bearer use Diabetes mellitus complication status: with hyperglycemia Qualified Code(s): E11.65 - Type 2 diabetes mellitus with hyperglycemia; Z79.4 - penitentiary (current) use of insulin Code(s): E11.9 - Type 2 diabetes mellitus without complications Status: Acute (6) Diabetic neuropathy: Qualifiers: Diabetes mellitus type: type 2 Diabetes mellitus complication detail: with other neurological complication Qualified Code(s): E11.49 - Type 2 diabetes mellitus with other diabetic neurological complication Code(s): E11.40 - Type 2 diabetes mellitus with diabetic neuropathy, unspecified Status: Acute (7) CAD (coronary artery disease): Code(s): I25.10 - Atherosclerotic heart disease of [place] coronary artery without angina pectoris Status: Acute (8) Paroxysmal A-fib: Code(s): I48.0 - Paroxysmal atrial fibrillation Status: Acute (9) Hypertension: Qualifiers: Hypertension type: essential hypertension Qualified Code(s): I10 - Essential (primary) hypertension Code(s): I10 - Essential (primary) hypertension Status: Acute (10) Hematoma of right thigh: Code(s): S70.11XA - Contusion of right thigh, initial encounter Status: Acute DS: Summary Hospital Course Hospital Course: 73-year-old female who presented to the ER of and swelling.? She underwent right TKA by Dr. Lewis.? Her pain got worse and was not relieved with the prescribed pain medication associated bruising and swelling and hence came to the ER for evaluation.? She has been on apixaban post surgery so takes his medication for her underlying atrial fibrillation.? In the ED her vitals were stable she was afebrile nontoxic.? No erythema or warmth. Noted some edema of the lower leg.? Neuro vascular status status was intact.? Mild leukocytosis 14 a noted normal static anemia heme 10.8 E were reasonable.? Right knee x-ray seen near anatomic alignment.? D-dimer was elevated ultrasound was performed this a.m. reported to be negative.? Will continue with apixaban.? Right hip pain is noted and x-ray noted with moderate osteoarthritis of the hip.? Orthopedics has been consulted and okay to discharge from ID standpoint.? She was only using 1 hydrocodone per day which was not controlling her pain. She was admitted for pain control. P.r.n. hydrocodone for pain control and PT OT ordered which she did well.? She is doing physical therapy as an outpatient basis was advised to be continued at discharge she will be placed on hydrocodone p.r.n. at discharge. Continue to follow-up with orthopedics as outpatient basis. Time Spent with Patient Time attestation: Total time spent providing and/or coordinating discharge services: 35 minutes Exam Narrative: GENERAL: Well-appearing, well-nourished, and in no acute distress. HEAD: Normocephalic, atraumatic. EYES: EOMI. CHEST: Clear to auscultation. No respiratory distress. No wheezes rales or rhonchi HEART: Regular rate and rhythm. No murmur heard. Normal peripheral pulses. EXTREMITIES: Decreased active ROM in the right knee due to pain. No erythema. Bruising to the right inner thigh.
[2023-04-29 16:33] LABS: Glucose Point of Care 132 mg/dl (65-105)
--- NOTE | 2023-04-30 14:11 | PM.CNOR ---
Assessment and Plan Assessment and plan (1) S/P total knee arthroplasty: Qualifiers: Laterality: right Qualified Code(s): Z96.651 - Presence of right artificial knee joint Code(s): Z96.659 - Presence of unspecified artificial knee joint Status: Acute Assessment and Plan: Patient is status post total knee arthroplasty right. She has had some issues with pain and failure to thrive. She is readmitted for evaluation. At this time her therapy is going better. I would like see her back in the office in a week. Anticipate staple out at that time. She should continue with therapy. And work on motion. History of Present Illness HPI Consult date: 04/30/23 Chief complaint: failure to thrive, sp riht tka Review of Systems Musculoskeletal: Musculoskeletal: Reports arthralgias and Reports joint swelling PMFSH Past Medical History Medical History A-fib Allergies Anxiety Arthritis Asthma Back injury L5 SI injection Back pain Brain bleed (2) CAD (coronary artery disease) Colon polyps Costochondritis Depression Diabetic neuropathy DVT (deep venous thrombosis) (~1979) LLE Generalized pruritus Hyperlipidemia Hypertension IBS (irritable bowel syndrome) Insomnia Leukocytosis Obesity Osteopenia Postmenopausal Thyroid disorder TIA (transient ischemic attack) Trigeminal neuropathy Type 2 diabetes mellitus Urinary incontinence Visceral hypersensitivity syndrome Surgical History Surgical History H/O foot surgery Left and right H/O knee surgery Left H/O: hysterectomy History of back surgery History of surgery of head placement of shunt Family History Family History Mother Muscular dystrophy Father Carcinoma of colon Grandparent Acute myocardial infarction Ruptured appendix Sibling Acute myocardial infarction Social History Social History Smoking packs per day: 0.75 Smoking cigarettes per day: 15.0 Years smoked: 5 Smoking pack-years: 3.75 Smoking status: Former smoker Tobacco type: cigarettes Second hand tobacco smoke exposure: Yes Smoking end date: 02/18/15 Additional smoking assessment comments: DENIES ANY FORM OF TOBACCO USE Alcohol intake: never Substance use: never Do You Feel Safe in your Home?: Yes Lack of Transportation: No Lack of Food: Never True Current Housing: I Have Housing Concerned About Future Housing: No Difficulty Paying Gas/Electric Bills: No Difficulty Paying for Meds: No Currently Unemployed: No Education: High School Diploma/GED Difficulty w/ Childcare or Family Care: No Living arrangements: alone Occupation/Education: retired Spiritual care concerns: No Meds Home Medications and Allergies Home Medications Medication Instructions Recorded Confirmed Type apixaban 5 mg tablet (Eliquis) 5 mg PO BID 01/21/20 04/27/23 History metoprolol tartrate 25 mg tablet 25 mg PO BID 01/21/20 04/27/23 History blood-glucose meter #1 ea 05/04/20 04/27/23 Rx blood sugar diagnostic (OneTouch #200 strips 12/11/21 04/27/23 Rx Ultra Test strips) pen needle, diabetic 31 gauge x #360 ea 09/12/22 04/27/23 Rx 5/16 (BD Ultra-Fine Short Pen Needle) gabapentin 300 mg capsule 300 mg PO BID 90 days #180 caps 12/13/22 04/27/23 Rx linagliptin 5 mg tablet (Tradjenta) 5 mg PO QAM 90 days #90 tabs 12/13/22 04/27/23 Rx buspirone 5 mg tablet 5 mg PO BID #180 tabs 01/31/23 04/27/23 Rx lisinopril 40 mg tablet 40 mg PO DAILY #90 tabs 02/07/23 04/27/23 Rx trazodone 100 mg tablet 100 mg PO QHS #90 tabs 02/07/23 04/27/23 Rx acetaminophen 500 mg capsule 1,000 mg PO PRN PRN Pain 04/15/23 04/27/23 History cetirizine 10 mg capsule (Zyrtec) 10 mg PO DAILY 04/15/23 04/27/23 History empagliflozin 25 mg tablet
== END 2023-04-29 17:05 | disposition home or self-care (01) | DRG 948 ==
LOC: ANHED 22:52 → ANH3MEDSUR 23:55
PROVIDERS: Internal Medicine; Admitting Provider Internal Medicine; Emergency Provider Physician Assistant; PCP Clinical Nurse Specialist; Visit Provider Internal Medicine
DX: G89.18 Other acute postprocedural pain (principal); R62.7 Adult failure to thrive; I48.0 Paroxysmal atrial fibrillation; I10 Essential (primary) hypertension; I25.10 Atherosclerotic heart disease of native coronary artery without angina pectoris; J45.909 Unspecified asthma, uncomplicated; E11.40 Type 2 diabetes mellitus with diabetic neuropathy, unspecified; E78.5 Hyperlipidemia, unspecified; E66.9 Obesity, unspecified; M54.50 Low back pain, unspecified; K58.9 Irritable bowel syndrome, unspecified; M85.80 Other specified disorders of bone density and structure, unspecified site; M16.11 Unilateral primary osteoarthritis, right hip; M17.12 Unilateral primary osteoarthritis, left knee; F41.9 Anxiety disorder, unspecified; F32.A Depression, unspecified; Z96.651 Presence of right artificial knee joint; Z79.01 Long term (current) use of anticoagulants; Z79.4 Long term (current) use of insulin; Z86.718 Personal history of other venous thrombosis and embolism; Z86.73 Personal history of transient ischemic attack (TIA), and cerebral infarction without residual deficits; Z86.010 Personal history of colon polyps; Z87.891 Personal history of nicotine dependence
CPT/HCPCS: 36415; 73502; 73562; 80048; 80053; 82948; 83735; 85025; 85380; 85610; 85730; 93971; 96372; 96374; 97110; 97116; 97161; 97165; 97530; 99285; A9270; G0378; J1170; J1815; J3360; J7512

== ENCOUNTER 2023-06-27 12:08 | Inpatient (IN) | payer MEDICARE, SELFPAY ==
[2023-06-27] VITALS (7 sets, daily range): BP systolic 108–129; BP diastolic 53–66; PULSE 80–98; RESP 16–18; TEMP 36.7–37.2; O2SAT 98; BMI 32.3
--- NOTE | ~2023-06-27 | XR_ITS ---
EXAMINATION: XR chest 2V DATE: 06/27/2023 12:42 INDICATION: Chest pain radiating to the back. TECHNIQUE: Frontal and lateral views of the chest were obtained. COMPARISON: None. FINDINGS: There is no pneumonia, pleural effusion, or pneumothorax. The heart size is normal. A left- sided ventriculoperitoneal shunt is noted. IMPRESSION: 1. No acute cardiopulmonary disease. Reviewed, dictated and finalized at location A.
--- NOTE | ~2023-06-27 | US_ITS ---
EXAMINATION: US right upper quadrant DATE: 06/27/2023 15:33 INDICATION: Abdominal pain TECHNIQUE: Multiple grayscale and Doppler ultrasound images of the abdomen were obtained. COMPARISON: None FINDINGS: The pancreatic head and body are normal in appearance. The pancreatic tail is not visualized. Liver has normal contour, with a smooth surface. There is increased parenchymal echogenicity and coarsened echotexture consistent with diffuse hepatic steatosis. No liver lesion identified. No intrahepatic b iliary duct dilation suspected. Portal venous flow was seen in the hepatopetal, normal direction and has normal Doppler waveform. Couple echogenic and shadowing gallstones at the neck of the gallbladder . There is diffuse gallbladder wall thickening and trace amount of pericholecystic fluid. Sonographic Tierney sign was reported as positive by the bobtailer.The common bile duct measures 5 mm in teresita l diameter which is normal. The visualized proximal inferior vena cava and aorta are normal. IMPRESSION: 1. Findings consistent with acute cholecystitis including cholelithiasis, gallbladder wall thickening and trace amount of pericholecystic fluid and positive sonographic Tierney sign. 2. Diffuse hepatic steatosis. Reviewed, dictated and finalized at location A. IMPRESSION: 1. Findings consistent with acute cholecystitis including cholelithiasis, gallb ladder wall thickening and trace amount of pericholecystic fluid and positive s onographic Tierney sign. 2. Diffuse hepatic steatosis.
--- NOTE | ~2023-06-27 | CT_ITS ---
EXAMINATION: CT chest abdomen pelvis w con DATE: 06/27/2023 15:11 INDICATION: Chest and abdominal pain TECHNIQUE: Computed tomography (CT) of the chest, abdomen, and pelvis was performed with 100 mL Omnip aque-350 intravenous contrast. Automated exposure control and iterative reconstruction technique were employed. The dose-length product was 907.47 mGy-cm. COMPARISON: CT chest dated 07/13/[address] abdomen and pelvis dated 11/20/2022 FINDINGS: CHEST CT: Lungs are clear with no suspicious pulmonary nodules, pneumonia, pulmonary edema or pleural effusion. Heart size is normal. No pericardial effusion. Thoracic aorta is normal in caliber with no dissectio n. No evident pulmonary embolism. No pathologically enlarged thoracic lymphadenopathy. There is a cat heter extending craniocaudally in the anterior chest wall subcutaneous fat from the visualized base o f the neck extending into the peritoneal space in the left lower quadrant with distal tip in the ante rior mid pelvis likely representing a ventriculoperitoneal shunt. Minimal thoracic spondylosis. ABDOMEN/PELVIS CT: Liver, spleen, pancreas, bilateral adrenal glands are normal. There is likely age-related mild bilate ral renal atrophy. There is subtle haziness to the pericholecystic fat of the gallbladder is not dila joshua. No intra or extrahepatic biliary ductal dilation. There is mild scattered diverticulosis without adjacent from trace stranding to suggest diverticulitis. Small bowel and appendix are normal. Bladde r is normal. The uterus and right ovary are not identified and have likely been surgically resected. Left adnexa is unremarkable. No free intraperitoneal gas or fluid. No pathologically enlarged abdomin al or pelvic lymphadenopathy. Severe lumbar spondylosis with combined instrumented L5-S1 anterior and posterior spinal fusion with interbody bone graft cage and bilateral vertical elie and pedicle screw fixation. Bone graft harvest site at the right posterior iliac spine. IMPRESSION: 1. No acute cardiopulmonary disease. 2. Mild haziness to the pericholecystic fat which does raise some concern for acute cholecystitis alt sam there is no evident gallbladder dilation or definitive cholelithiasis. Correlate for Tierney and if indicated could consider further evaluation with right upper quadrant ultrasound as clinically in dicated. Reviewed, dictated and finalized at location A. IMPRESSION: 1. No acute cardiopulmonary disease. 2. Mild haziness to the pericholecystic fat which does raise some concern for a cute cholecystitis although there is no evident gallbladder dilation or definit wendy cholelithiasis. Correlate for Tierney and if indicated could consider furthe r evaluation with right upper quadrant ultrasound as clinically indicated.
--- NOTE | 2023-06-27 12:25 | ECG_ITS ---
SEE SCANNED COPY FOR CONFIRMED REPORT MTDD
[2023-06-27 12:37] LABS: Basophils Absolute Auto 0.1 K/mm3 (0.0-0.1); Basophils Percent Auto 0.5 % (0.2-1.2); Eosinophils Percent Auto 0.1 % (0-4.4); Hematocrit 43.6 % (37.0-47.0); Hemoglobin 13.9 g/dL (12.0-15.0); Immature Granulocyte Absolute 0.07 K/mm3 (0.00-0.031); Immature Granulocyte Percent A 0.5 % (0-0.5); Lymphocytes Percent Auto 5.8 % (18.3-44.2); Mean Corpuscular HGB Conc 31.9 g/dl (32-36); Mean Corpuscular Hemoglobin 27.7 pg (26-34); Mean Corpuscular Volume 86.9 fl (80-100); Mean Platelet Volume 10.6 fl (7.4-10.4); Monocytes Absolute Auto 1.1 K/mm3 (0.1-0.6); Monocytes Percent Auto 7.1 % (2.6-8.5); Neutrophils Absolute Auto 13.3 K/mm3 (1.3-6.7); Platelet Count Result 338 k/mm3 (150-375); Red Blood Count 5.02 M/mm3 (4.2-5.4); Red Cell Distribution Width 15.1 % (11.5-14.5); White Blood Count 15.4 K/mm3 (4.5-10.0)
[2023-06-27 12:49] LABS: Alanine Aminotransferase 356 U/L (6-35); Albumin Level 4.3 g/dL (3.5-5.1); Alkaline Phosphatase 86 U/L (38-126); Anion Gap 9 mmol/L (4-12); Bilirubin,Total 1.8 mg/dL (0.2-1.3); Blood Urea Nitrogen 21 mg/dL (7-17); Calcium 9.4 mg/dL (8.4-10.2); Carbon Dioxide 25 mmol/L (22-30); Chloride 103 mmol/L (98-107); Estimated CRCL calculation 62 ml/min; Estimated Glomerular Filt Rate > 60; Glucose 176 mg/dL (65-110); Lipase 139 U/L (23-300); Potassium 4.6 mmol/L (3.4-5.0); Sodium 137 mmol/L (137-145)
[2023-06-27 12:54] LABS: INR 1.2; Prothrombin Time 15.3 Seconds (11.1-14.7)
[2023-06-27 12:55] LABS: Partial Thromboplastin Time 28.9 Seconds (22.3-36.8)
[2023-06-27 13:04] LABS: Troponin I < 0.012 ng/mL (0.000-0.034)
[2023-06-27 13:07] LABS: Aspartate Amino Transferase 1000 U/L (14-36)
--- NOTE | 2023-06-27 14:27 | ED.GENADULT ---
HPI - General Adult General Chief complaint: Chest Pain <Janine Mendoza APRN - Last Filed: 06/27/23 14:36> Stated complaint: CP <Janine Haywood June SPINDLE PLUMBER - Last Filed: 06/27/23 14:36> Time Seen by Provider: 06/27/23 14:27 <Janine Haywood June SPINDLE PLUMBER - Last Filed: 06/27/23 14:36> Focused HPI: Alicia Del Toro is a 73 y/o female with reports of being woken up out of her sleep at 0300 this AM with chest pain /epigastric and went through to her back, she couldn't take a deep breath and then she started to vomit, she states she felt like her hiatal hernia was rupturing. The pain was then off and on until about 0700. She states now she has soreness pain to her chest and epigastric area. GENERAL: no acute distress. HEAD: Normocephalic, atraumatic. CHEST: Clear to auscultation. ?No respiratory distress. HEART: Regular rate and rhythm.? NEURO: ?Alert and oriented x3. Patient screened in triage and initial orders placed.? ?Additional care and disposition to be based upon?diagnostic testing and treatment. <Janine Mendoza, SPINDLE PLUMBER - Last Filed: 06/27/23 14:36> History of Present Illness HPI narrative: Agree with HPI <Milton Prieto MD - Last Filed: 06/27/23 18:54> Related Data Home medications: Home Medications Medication Instructions Recorded Confirmed apixaban 5 mg tablet (Eliquis) 5 mg PO BID 01/21/20 06/20/23 metoprolol tartrate 25 mg tablet 25 mg PO BID 01/21/20 06/20/23 acetaminophen 500 mg capsule 1,000 mg PO PRN PRN Pain 04/15/23 06/20/23 cetirizine 10 mg capsule (Zyrtec) 10 mg PO DAILY 04/15/23 06/20/23 empagliflozin 25 mg tablet 25 mg PO DAILY 04/15/23 06/20/23 (Jardiance) insulin aspart U-100 100 unit/mL 5 unit subcut AC 04/15/23 06/20/23 (3 mL) subcutaneous pen (Novolog FlexPen U-100 Insulin aspart) insulin degludec 200 unit/mL (3 26 unit subcut QPM 04/15/23 06/20/23 mL) subcutaneous pen (Tresiba FlexTouch U-200 insulin) vibegron 75 mg tablet (Gemtesa) 75 mg PO DAILY 04/15/23 06/20/23 escitalopram oxalate 20 mg tablet 20 mg PO HS 04/27/23 06/20/23 metformin 500 mg tablet 1,000 mg PO BID 04/27/23 06/20/23 simvastatin 40 mg tablet 40 mg PO HS 04/27/23 06/20/23 <Janine Mendoza, SPINDLE PLUMBER - Last Filed: 06/27/23 14:36> Allergies/adverse reactions: Allergies Allergy/AdvReac Type Severity Reaction Status Date / Time adhesive tape Allergy Intermediate Blister Verified 06/20/23 14:25 hydromorphone [From Dilaudid] Allergy Intermediate Itching Verified 06/20/23 14:25 morphine Allergy Intermediate Itching Verified 06/20/23 14:25 <Janine Mendoza, SPINDLE PLUMBER - Last Filed: 06/27/23 14:36> Review of Systems Review of Systems: All systems reviewed & are unremarkable except as noted in HPI and below <Milton Prieto MD - Last Filed: 06/27/23 18:54> Constitutional: Constitutional: Reports no additional constitutional complaints <Milton Prieto MD - Last Filed: 06/27/23 18:54> ENT: Reports system reviewed and no additional complaints, except as documented <Milton Prieto MD - Last Filed: 06/27/23 18:54> Cardiovascular: Cardiovascular: Reports chest pain, Denies rapid heart rate, Denies radiating jaw, neck or arm pain and Denies slow heart rate <Milton Prieto MD - Last Filed: 06/27/23 18:54> Respiratory: Respiratory: Reports no additional respiratory complaints <Milton Prieto MD - Last Filed: 06/27/23 18:54> Gastrointestinal: Gastrointestinal: Reports abdominal pain, Denies diarrhea, Reports nausea and Reports vomiting <Milton Prieto MD - Last Filed: 06/27/23 18:54> Genitourinary: Genitourinary: Reports no additional female genitourinary complaints <Milton Prieto MD - Last Filed: 06/27/23 18:54> Musculoskeletal: Musculoskeletal: Reports no additional musculoskeletal complaints <Milton Prieto MD - Last Filed: 06/27/23 18:54> COUNTS INCLUDE 234 BEDS AT THE [facility] Past Medical History Medical History: Medical History A-fib Allerg
[2023-06-27] MEDS: PIPERACILLN/TAZ 3.375GM/NS50ML 3.375 GM/50 ML BAG IVPB ×2 (16:05→22:52)
[2023-06-27 16:16] LABS: Troponin I < 0.012 ng/mL (0.000-0.034)
--- NOTE | 2023-06-27 16:57 | PM.IMHP ---
H&P: HPI History of Present Illness Date/Time: 06/27/23 16:57 Chief Complaint: Epigastric Pain Narrative: 73 y/o F presents here with epigastric pain and lower chest pain with PMH of AFib, asthma, CAD, depression/anxiety, DVT (LLE, 1979), HLD, HTN, IBS, thyroid disorder, TIA, and DM2. Patient presented here from home for further evaluation of epigastric pain and lower chest pain that started around 3:00 a.m. Pain woke patient from her sleep. She describes the pain as sharp, radiating into her mid back and between her shoulders, constant initially, and no aggravating or alleviating factors. Is experiencing associated nausea, vomiting, and inability to take a deep breath due to the pain. Patient initially reported concerns that it felt like her hiatal hernia had ruptured. Pain now achy and sore to her chest and epigastric region without radiation. Denies changes in stool. Does not follow any specific diet and denies eating a lot of greasy/fried foods. Denies any fever, chills, or body aches. Reports having similar pain approximately 3 times per year on average but was not to this severity for the past 10 years. Initial VS at presentation: 98.1? F, HR 98, RR 16, 120/62, and 98% on RA. ED workup showed: WBC 15.4, no anemia, INR 1.2, no significant electrolyte derangements, creatinine 0.8 and GFR >60, total bilirubin 1.8, AST 1000, ALT 356, and troponin negative x2. No acute cardiopulmonary findings on CXR. CT of the chest abdomen pelvis showed mild haziness to the pericholecystic fat raising concerns for acute cholecystitis. Review of Systems Review of Systems: All systems reviewed & are unremarkable except as noted in HPI and below [facility] Past Medical History Medical History A-fib Allergies Anxiety Arthritis Asthma Back injury L5 SI injection Back pain Brain bleed (2) CAD (coronary artery disease) Colon polyps Costochondritis Depression Diabetic neuropathy DVT (deep venous thrombosis) (~1979) LLE Generalized pruritus Hyperlipidemia Hypertension IBS (irritable bowel syndrome) Insomnia Leukocytosis Obesity Osteopenia Postmenopausal Thyroid disorder TIA (transient ischemic attack) Trigeminal neuropathy Type 2 diabetes mellitus Urinary incontinence Visceral hypersensitivity syndrome Surgical History Surgical History H/O foot surgery Left and right H/O knee surgery Left H/O: hysterectomy History of back surgery History of surgery of head placement of shunt Family History Family History Mother Muscular dystrophy Father Carcinoma of colon Grandparent Acute myocardial infarction Ruptured appendix Sibling Acute myocardial infarction Social History Social History Smoking packs per day: 0.75 Smoking cigarettes per day: 15.0 Years smoked: 5 Smoking pack-years: 3.75 Smoking status: Former smoker Second hand tobacco smoke exposure: Yes Additional smoking assessment comments: DENIES ANY FORM OF TOBACCO USE Alcohol intake: never Substance use: never Do You Feel Safe in your Home?: Yes Lack of Transportation: No Lack of Food: Never True Current Housing: I Have Housing Concerned About Future Housing: No Difficulty Paying Gas/Electric Bills: No Difficulty Paying for Meds: No Currently Unemployed: No Education: High School Diploma/GED Difficulty w/ Childcare or Family Care: No Living arrangements: alone Occupation/Education: retired Spiritual care concerns: No Meds Home Medications and Allergies Home Medications Medication Instructions Recorded Confirmed Type apixaban 5 mg tablet (Eliquis) 5 mg PO BID 01/21/20 06/27/23 History metoprolol tartrate 25 mg tablet 25 mg PO BID 01/21/20 06/27/23 History blood-glucose meter #1 ea
[2023-06-27] MEDS: PANTOPRAZOLE SODIUM IV 40 MG VIAL IV PUSH (17:30)
[2023-06-27] MEDS: SODIUM CHLORIDE 0.9% IV 1,000 ML 125 ML IV CONT (17:33)
[2023-06-27 18:19] LABS: Appearance Urine Clear (Clear); Bacteria Urine None Seen /hpf; Bilirubin Urine Negative (Negative); Blood Urine Negative (Negative); Color Urine Yellow (Yellow); Glucose Urine UA 3+ mg/dL (Negative); Ketones Urine Trace mg/dL (Negative); Leukocyte Esterase Ur Negative LEU/UL (Negative); Nitrate Urine Negative (Negative); Non Pathogenic Casts 0-2; Protein Urine Trace mg/dL (Negative); RBC Urine 0-2 /hpf (0-2); Squamous Epithelial Cell Urine None Seen /hpf (Few); pH Urine 7.5 (5.0-9.0)
[2023-06-27 18:20] LABS: Specific Grav Ur 1.064 (1.001-1.035)
[2023-06-27 18:21] LABS: Add Urine Microscopic? YES
--- NOTE | 2023-06-27 19:00 | ADMGEN ---
This patient, Alicia Del Toro, was admitted to Medical Room 340-01. Patient/family oriented to hospital policies and general routines including ID bracelet, bed and alarms, visiting hours, pain management, procedures, bathroom and other care routines, personal items, smoking policy, room service/diet, and visiting hours. Information on how to activate the Rapid Response Team has been discussed. Patient/Family are encouraged to report perceived risks to care and to ask questions if they do not understand what they are told or what they should do.
[2023-06-27 19:33] LABS: Troponin I < 0.012 ng/mL (0.000-0.034)
--- NOTE | 2023-06-27 21:25 | PM.CNGS ---
Assessment and Plan Assessment and plan (1) Cholelithiasis and acute cholecystitis without obstruction: Code(s): K80.00 - Calculus of gallbladder with acute cholecystitis without obstruction Status: Acute Assessment and Plan: continue IV antibiotics and analgesics. Hopefully pain will resolve and signs infection improve. If not, will need cholecystectomy or cholecystostomy tube. She is anticoagulated on Eliquis and would like to avoid surgery until off Eliquis for 48 hrs or more. Her last dose of Eliquis was in the morning on 06/26/2023 (2) Elevated LFTs: Code(s): R79.89 - Other specified abnormal findings of blood chemistry Status: Acute Assessment and Plan: Likely due to cholecystitis rather than CBD stones. CBD diameter on U/S only 5 mm. Alk phos normal as is Lipase. ;' (3) History of knee replacement procedure of right knee: Code(s): Z96.651 - Presence of right artificial knee joint Status: Acute Assessment and Plan: April 2023, 2 months ago. Was still receiving physical therapy (4) History of brain surgery: Code(s): Z98.890 - Other specified postprocedural states Status: Chronic Assessment and Plan: Surgery for intracranial bleeding times 2; has ventriculoperitoneal shunt on imaging (5) Insulin dependent diabetes mellitus: Status: Chronic Assessment and Plan: hospitalist to manage, watch blood sugars. History of Present Illness Consult details Consult date: 06/27/23 (Seen in the evening and note started at that time. Note completed 06/28/2023) Reason for consult: abdominal pain Requesting physician: Milton Prieto MD Narrative: Patient is a 73 yo woman who was awakened at 3 a.m. with chest pain, epigastric pain, vomitting and pain with deep breath. Evaluation in the ED did not show evidence of acute coranary syndrome but did suggest acute cholecystitis with gallstones on CT and U/S.Patient expressed concern at onset of pain and symptoms that her hiatal hernia burst. This is interesting because imaging shows no hiatal hernia. She had a mild increase in bilirubin but an AST of 1000, ALT of 356, with normal Alk Phos and normal Lipase. She was noted on imaging to have a SENIOR APPLICATIONS ANALYST shunt. She has insulin dependent diabetes and is on Eliquis for atrial fibrillation history. Her last dose was yesterday, 06/26/2023, in the morning. She was more comfortable by the time I saw her. Abdominal pain had improved. She still has some soreness but was starting to feel a little hungry. Has not had any pain medication since admitted. Review of Systems Review of Systems: All systems reviewed & are unremarkable except as noted in HPI and below (HPI and those items noted below) Constitutional: Constitutional: Denies chills and Denies fever(s) Cardiovascular: Cardiovascular: Denies chest pain, Denies diaphoresis, Denies dyspnea and Denies paroxysmal nocturnal dyspnea Respiratory: Respiratory: Denies chest congestion, Denies cough and Denies dyspnea Integumentary/Breasts: Skin/Breast: Denies lesions and Denies rash [facility] Past Medical History Medical History A-fib Allergies Anxiety Arthritis Asthma Back injury L5 SI injection Back pain Brain bleed (2) CAD (coronary artery disease) Colon polyps Costochondritis Depression Diabetic neuropathy DVT (deep venous thrombosis) (~1979) LLE Generalized pruritus Hyperlipidemia Hypertension IBS (irritable bowel syndrome) Insomnia Leukocytosis Obesity Osteopenia Postmenopausal Thyroid disorder TIA (transient ischemic attack) Trigeminal neuropathy Type 2 diabetes mellitus Urinary incontinence Visceral hypersensitivity syndrome Surgical History Surgical History H/O foot surgery Left and right H/O knee surgery Left H/O: hysterectomy History of back surgery History of surgery of head place
[2023-06-27] MEDS: METOPROLOL TARTRATE 25 MG TABLET PO (22:51)
[2023-06-27] MEDS: traZODone HCL 50 MG TABLET 100 MG PO (22:51)
[2023-06-27] MEDS: GABAPENTIN 300 MG CAPSULE PO (22:51)
[2023-06-28] MEDS: SODIUM CHLORIDE 0.9% IV 1,000 ML 125 ML IV CONT ×2 (02:01→10:44)
[2023-06-28 04:54] VITALS: BP 137/68; PULSE 83; RESP 16; TEMP 36.2; O2SAT 96
[2023-06-28] MEDS: PIPERACILLN/TAZ 3.375GM/NS50ML 3.375 GM/50 ML BAG IVPB ×3 (05:02→17:13)
[2023-06-28 05:03] LABS: Basophils Percent Auto 0.4 % (0.2-1.2); Eosinophils Absolute Auto 0.3 K/mm3 (0-0.3); Eosinophils Percent Auto 2.3 % (0-4.4); Hematocrit 36.8 % (37.0-47.0); Hemoglobin 11.7 g/dL (12.0-15.0); Immature Granulocyte Absolute 0.04 K/mm3 (0.00-0.031); Immature Granulocyte Percent A 0.4 % (0-0.5); Lymphocytes Absolute Auto 1.03 K/mm3 (0.9-3.2); Lymphocytes Percent Auto 9.2 % (18.3-44.2); Mean Corpuscular HGB Conc 31.8 g/dl (32-36); Mean Corpuscular Hemoglobin 27.7 pg (26-34); Mean Platelet Volume 10.6 fl (7.4-10.4); Monocytes Percent Auto 9.3 % (2.6-8.5); Neutrophils Absolute Auto 8.8 K/mm3 (1.3-6.7); Neutrophils Percent Auto 78.4 % (45.5-73.1); Platelet Count Result 237 k/mm3 (150-375); Red Blood Count 4.23 M/mm3 (4.2-5.4); Red Cell Distribution Width 15.1 % (11.5-14.5); White Blood Count 11.2 K/mm3 (4.5-10.0)
[2023-06-28 05:16] LABS: INR 1.2; Prothrombin Time 15.7 Seconds (11.1-14.7)
[2023-06-28 05:17] LABS: Partial Thromboplastin Time 32.6 Seconds (22.3-36.8)
[2023-06-28 05:21] LABS: Alanine Aminotransferase 274 U/L (6-35); Albumin Level 3.4 g/dL (3.5-5.1); Alkaline Phosphatase 78 U/L (38-126); Aspartate Amino Transferase 322 U/L (14-36); Bilirubin,Total 1.8 mg/dL (0.2-1.3); Blood Urea Nitrogen 19 mg/dL (7-17); Calcium 8.7 mg/dL (8.4-10.2); Carbon Dioxide 23 mmol/L (22-30); Estimated CRCL calculation 55 ml/min; Estimated Glomerular Filt Rate > 60; Glucose 110 mg/dL (65-110); Magnesium 1.9 mg/dL (1.6-2.3); Potassium 3.7 mmol/L (3.4-5.0); Sodium 137 mmol/L (137-145)
[2023-06-28 05:25] LABS: Anion Gap 6 mmol/L (4-12); Chloride 108 mmol/L (98-107)
[2023-06-28 08:30] LABS: Glucose Point of Care 113 mg/dl (65-105)
[2023-06-28] MEDS: PANTOPRAZOLE SODIUM IV 40 MG VIAL IV PUSH (10:42)
[2023-06-28 10:43] VITALS: PULSE 86
[2023-06-28] MEDS: METOPROLOL TARTRATE 25 MG TABLET PO ×2 (10:43→20:14)
[2023-06-28] MEDS: busPIRone HCL 5 MG TABLET PO ×2 (10:43→17:13)
[2023-06-28] MEDS: lisinopriL 20 MG TABLET 40 MG PO (10:43)
[2023-06-28] MEDS: GABAPENTIN 300 MG CAPSULE PO ×2 (10:44→20:13)
[2023-06-28] MEDS: EMPAGLIFLOZIN 25 MG TABLET PO (10:44)
[2023-06-28] MEDS: ACETAMINOPHEN 500 MG TABLET PO ×2 (10:59→20:13)
[2023-06-28] MEDS: ENOXAPARIN 40 MG/0.4 ML SYRINGE SUB-Q (12:13)
[2023-06-28 12:18] LABS: Glucose Point of Care 106 mg/dl (65-105)
[2023-06-28] MEDS: SITagliptin PHOSPHATE 100 MG TABLET PO (12:56)
--- NOTE | 2023-06-28 13:31 | PM.IMPN ---
Progress Note: A&P Assessment and Plan (1) Abdominal pain: Qualifiers: Abdominal location: generalized Qualified Code(s): R10.84 - Generalized abdominal pain Code(s): R10.9 - Unspecified abdominal pain Status: Acute Assessment and Plan: Patient is gradually getting better. Plan is to continue with IV fluid. Increase diet as tolerated. Continue with IV antibiotics. Monitor LFTs. (2) Chest pain: Code(s): R07.9 - Chest pain, unspecified Status: Acute Assessment and Plan: Workup negative so for. Will monitor closely. (3) Elevated LFTs: Code(s): R79.89 - Other specified abnormal findings of blood chemistry Status: Acute Assessment and Plan: LFTs are getting better. Will repeat them morning. Monitor closely. (4) Paroxysmal A-fib: Code(s): I48.0 - Paroxysmal atrial fibrillation Status: Acute Assessment and Plan: -EKG, initial: Sinus rhythm with first-degree AV block with occasional ventricular premature complexes, left anterior fascicular block, left ventricular hypertrophy and ST-T change, possible anteroseptal ID of indeterminate age. No formal read available for review. -holding Eliquis 5 mg b.i.d., continuing metoprolol 25 mg b.i.d. 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 (6) Hypertension: Qualifiers: Hypertension type: essential hypertension Qualified Code(s): I10 - Essential (primary) hypertension Code(s): I10 - Essential (primary) hypertension Status: Acute Assessment and Plan: Stable on current medications, will continue current treatment. Plan Patient is gradually getting better. Plan is to continue with IV fluid and antibiotics. Increase p.o. intake as tolerated. GI Prophylaxis: Pantoprazole IVP DVT Prophylaxis: SCDs, holding home anticoagulation Lines: Peripheral Code Status: Full code Subjective Date/time seen: 06/28/23 13:31 Interval history: Patient was seen during the rounds today. Patient is tolerating p.o. diet. Pain has substantially decreased. No nausea or vomiting. No shortness of breath or chest pain Review of Systems Review of Systems: All systems reviewed & are unremarkable except as noted in HPI and below Exam Narrative: tenderness to upper abdomen, diffuse and tenderness to RLQ. heart and lungs fine. A/Ox4. Const: General: comfortable and no acute distress Other: , female, nontoxic appearance HENMT: Face/Nose/Sinus: Normal nares present Mouth: Yes moist mucous membranes Eyes: General: appearance normal, both eyes and all related structures Sclera: sclerae normal Pupils: Equal, round and reactive pupils present EOM: EOMs intact bilaterally Resp: Effort & Inspection: normal respiratory effort Auscultation: clear to auscultation bilaterally Cardio: Rate: regular rate Rhythm: regular rhythm Other: S1-S2 present without murmur, rub, ectopy GI: Other: Decreased tenderness to upper abdomen and tenderness to RLQ. abdomen otherwise soft, nondistended. Normoactive bowel sounds in all quadrants. Skin: General skin exam: normal color and no rashes or lesions noted Wounds: no wounds Neuro: Cranial nerves: Yes Equal, round and reactive pupils present Speech: normal speech Motor exam (neuro): 5/5 motor strength present throughout Sensory Exam: normal sensation Other: A&O x4 Extrem: General: normal to inspection Psych: Menta
[2023-06-28 14:00] VITALS: BP 122/47; PULSE 79; RESP 16; TEMP 36.6; O2SAT 96
--- NOTE | 2023-06-28 14:17 | PM.PNGS ---
Progress Note: A&P Assessment and Plan (1) Cholelithiasis and acute cholecystitis without obstruction: Code(s): K80.00 - Calculus of gallbladder with acute cholecystitis without obstruction Status: Acute Assessment and Plan: Pain much improved, exam and labs also improved. Will go ahead and start patient on low-fat diet. When I saw the patient, she had her daughter on her cell phone in speaker mode. I was able to talk to both the patient and her daughter. I explained to the patient that if she is able to tolerate oral intake without recurrence of her pain, she could go home and then come back as an outpatient for laparoscopic cholecystectomy. I then described the procedure of laparoscopic cholecystectomy, in detail, to the patient and her daughter via the cell phone. The procedure risks benefits and alternatives were discussed. Surgery is definitely recommended but at this point does not need to be done emergently. I explained the typical recovery period as well. All questions were answered. If patient tolerates low-fat diet, she could probably go home tomorrow and come back for surgery this week. (2) Elevated LFTs: Code(s): R79.89 - Other specified abnormal findings of blood chemistry Status: Acute Assessment and Plan: Not normal but much improved from yesterday (3) Insulin dependent diabetes mellitus: Status: Chronic Assessment and Plan: Blood sugars look good. (4) S/P total knee arthroplasty: Qualifiers: Laterality: right Qualified Code(s): Z96.651 - Presence of right artificial knee joint Code(s): Z96.659 - Presence of unspecified artificial knee joint Status: Acute Assessment and Plan: Will consult physical therapy, evaluate and treat (5) History of brain surgery: Code(s): Z98.890 - Other specified postprocedural states Status: Chronic Assessment and Plan: History of intracranial bleeding and surgery, has ventriculoperitoneal shunt. Subjective Subjective Date/Time Seen: 06/28/23 10:17 Patient reports: feels better (Very hungry this morning), pain is less (Sore in the right upper quadrant but no pain. Has not had any pain medication all night) and afebrile Review of Systems Review of Systems: All systems reviewed & are unremarkable except as noted in HPI and below (HPI) Exam Const: General: comfortable, no acute distress, alert and awake Orientation/consciousness: patient oriented x3 GI: Inspection: normal to inspection, non-distended and no visible herniation GI Palp: Yes Soft to palpation, No Tenderness to palpation present (GI), No Guarding due to palpation present (GI), No Hernia present, No Palpable mass present and No Rebound tenderness present Auscultation: normal bowel sounds Neuro: General: patient oriented x3 and no focal motor deficits Extrem: General: no calf tenderness and no edema Psych: Affect: normal affect Insight: Good insight present (Psych) Judgement: Good judgement present (Psych) Objective Data Vital Signs Vital Signs: Vital Signs - 24 hr 06/27/23 14:56 06/27/23 14:57 06/27/23 17:33 Temperature Pulse Rate 91 88 Respiratory Rate 16 16 Blood Pressure 120/66 108/60 Pulse Oximetry 98 98 98 Oxygen Delivery Room Air 06/27/23 17:35 06/27/23 21:02 06/27/23 20:00 Temperature 37.2 C Pulse Rate 89 82 Respiratory Rate 18 Blood Pressure 129/53 L Pulse Oximetry 98 Oxygen Delivery Room Air 06/27/23 22:51 06/28/23 04:54 06/28/23 10:43 Temperature 36.2 C L Pulse Rate 80 83 86 Respiratory Rate 16 Blood Pressure 137/68 Pulse Oximetry 96 Oxygen Delivery Intake/Output Intake/Output: Intake & Output 06/25/23 06/26/23 06/27/23 06/28/23 23:59 23:59 23:59 23:59 Intake Total 100 2460.8 Balance 100 2460.8 Meds/Results Medications: Active Medications Generic Name Dose Route Start Last Admin Trade Name Freq PRN Reason Stop D
[2023-06-28] MEDS: INSULIN GLARGINE (LANTUS) 1,000 UNITS/10 ML VIAL 26 UNITS SUB-Q (17:14)
[2023-06-28 17:15] LABS: Glucose Point of Care 147 mg/dl (65-105)
[2023-06-28] MEDS: ESCITALOPRAM OXALATE 10 MG TABLET 20 MG PO (20:12)
[2023-06-28] MEDS: SIMVASTATIN 20 MG TABLET 40 MG PO (20:12)
[2023-06-28 20:14] VITALS: PULSE 88
[2023-06-28] MEDS: FAMOTIDINE 20 MG TABLET PO (20:14)
[2023-06-28] MEDS: traZODone HCL 50 MG TABLET 100 MG PO (20:15)
[2023-06-28 21:44] VITALS: BP 142/71; PULSE 83; RESP 20; TEMP 36.5; O2SAT 98
[2023-06-28] MEDS: INSULIN ASPART (*BKC) 100 UNITS/ML SUB-Q (21:48)
[2023-06-29] MEDS: PIPERACILLN/TAZ 3.375GM/NS50ML 3.375 GM/50 ML BAG IVPB ×3 (00:48→11:16)
[2023-06-29] MEDS: SODIUM CHLORIDE 0.9% IV 1,000 ML 80 ML IV CONT (01:59)
[2023-06-29] MEDS: ACETAMINOPHEN 500 MG TABLET PO (05:30)
[2023-06-29 05:48] LABS: Basophils Absolute Auto 0.1 K/mm3 (0.0-0.1); Basophils Percent Auto 0.6 % (0.2-1.2); Eosinophils Absolute Auto 0.3 K/mm3 (0-0.3); Eosinophils Percent Auto 2.5 % (0-4.4); Hematocrit 39.6 % (37.0-47.0); Hemoglobin 12.3 g/dL (12.0-15.0); Immature Granulocyte Absolute 0.05 K/mm3 (0.00-0.031); Immature Granulocyte Percent A 0.5 % (0-0.5); Lymphocytes Absolute Auto 0.58 K/mm3 (0.9-3.2); Lymphocytes Percent Auto 5.3 % (18.3-44.2); Mean Corpuscular HGB Conc 31.1 g/dl (32-36); Mean Corpuscular Hemoglobin 27.5 pg (26-34); Mean Corpuscular Volume 88.6 fl (80-100); Mean Platelet Volume 10.3 fl (7.4-10.4); Monocytes Absolute Auto 0.6 K/mm3 (0.1-0.6); Monocytes Percent Auto 5.6 % (2.6-8.5); Neutrophils Absolute Auto 9.3 K/mm3 (1.3-6.7); Neutrophils Percent Auto 85.5 % (45.5-73.1); Platelet Count Result 252 k/mm3 (150-375); Red Blood Count 4.47 M/mm3 (4.2-5.4); White Blood Count 10.9 K/mm3 (4.5-10.0)
[2023-06-29 06:00] VITALS: BP 136/69; PULSE 79; RESP 18; TEMP 36.7; O2SAT 96
[2023-06-29 06:00] LABS: Alanine Aminotransferase 197 U/L (6-35); Albumin Level 4.1 g/dL (3.5-5.1); Alkaline Phosphatase 99 U/L (38-126); Anion Gap 10 mmol/L (4-12); Aspartate Amino Transferase 113 U/L (14-36); Bilirubin,Total 1.2 mg/dL (0.2-1.3); Blood Urea Nitrogen 17 mg/dL (7-17); Carbon Dioxide 22 mmol/L (22-30); Chloride 108 mmol/L (98-107); Estimated CRCL calculation 50 ml/min; Estimated Glomerular Filt Rate 55; Glucose 146 mg/dL (65-110); Potassium 3.6 mmol/L (3.4-5.0); Sodium 140 mmol/L (137-145)
[2023-06-29 07:24] LABS: Glucose Point of Care 220 mg/dl (65-105)
[2023-06-29 08:17] LABS: Glucose Point of Care 124 mg/dl (65-105)
[2023-06-29 08:20] VITALS: PULSE 80
[2023-06-29] MEDS: busPIRone HCL 5 MG TABLET PO (08:20)
[2023-06-29] MEDS: FAMOTIDINE 20 MG TABLET PO (08:20)
[2023-06-29] MEDS: GABAPENTIN 300 MG CAPSULE PO (08:20)
[2023-06-29] MEDS: METOPROLOL TARTRATE 25 MG TABLET PO (08:20)
[2023-06-29] MEDS: ENOXAPARIN 40 MG/0.4 ML SYRINGE SUB-Q (08:20)
[2023-06-29] MEDS: lisinopriL 20 MG TABLET 40 MG PO (08:20)
[2023-06-29] MEDS: SITagliptin PHOSPHATE 100 MG TABLET PO (08:20)
[2023-06-29] MEDS: LORATADINE 10 MG TABLET PO (08:20)
[2023-06-29] MEDS: EMPAGLIFLOZIN 25 MG TABLET PO (08:20)
[2023-06-29] MEDS: INSULIN ASPART (*BKC) 100 UNITS/ML SUB-Q (08:34)
[2023-06-29 12:19] LABS: Glucose Point of Care 133 mg/dl (65-105)
--- NOTE | 2023-06-29 14:19 | PM.DS ---
DS: Admitting Diagnosis Discharge Date 06/29/23 Admitting Diagnosis Abdominal pain Chest pain Elevated LFTs Paroxysmal AFib Diabetes Hypertension DS: Summary Hospital Course Reason for hospitalization: Abdominal pain Chest pain Elevated LFTs Paroxysmal AFib Diabetes Hypertension Hospital Course: This is a 73-year-old female who presented to the hospital on 06/27/2023 with abdominal pain and chest pain. Workup in the hospital included a chest x-ray which was negative. A chest abdomen pelvis CT which shown no acute cardiopulmonary process however did show mild haziness to the vasile cholecystic fat which does raise some concern for acute cholecystitis although there is no evident gallbladder dilatation or cholelithiasis. Right upper quadrant ultrasound shown findings consistent with acute cholecystitis including cholelithiasis, gallbladder wall thickening and trace amount of fluid, diffuse hepatic steatosis. Initial labs reveal a white blood cell count of 10.9, EGFR 55, blood sugars ranging 124-146, AST 113, ALT 197, total bili was normal at 1.2. Patient was given a dose of Zosyn and pain meds while in the ED. On examination today patient is alert oriented x3, lying in the bed. She does report epigastric pain with deferred pain into the left shoulder and left breast that she rates at a 3/10. She states that it is difficult to take a good deep breath with the pain. She has been receiving pain medications while here. She denies any fever, chills, nausea, vomiting, diarrhea, shortness of breath. Dr. Melchor seen the patient and states that her gallbladder will need to be removed but it does not have to be removed emergently and he will see her on an outpatient basis to schedule surgery. She will need to remain on a low-fat diet and increase her activity as tolerated. She is stable for discharge at this time. Final diagnosis: Acute cholecystitis Status at Discharge Cognitive/behavioral status at discharge: Alert oriented x4 Time Spent with Patient Time attestation: Total time spent providing and/or coordinating discharge services: Exam Narrative: General: In no acute distress, well nourished Head: atraumatic, no encephalopathy Eyes: EOMI, PERRLA, sclera clear ENT: moist mucous membranes, nasal passages clear Neck: supple, no JVD, no adenopathy, trachea midline Cardiac: Normal S1 and S2. RRR No murmur, gallops or friction rubs, peripheral pulses intact. Respiratory: Lungs clear to auscultation, no adventitious lung sounds, currently on room air Gastrointestinal: soft, non-distended, reports epigastric pain that radiates up into the left shoulder and left breast, normoactive bowel sounds. She is passing gas and tolerating food and fluid : voiding without difficulty. Extremities: moves all extremities well, no edema, good ROM, strength 5/5 Skin: clean, dry, intact. No wounds or lesions. Neuro: Alert and oriented x4, cranial nerves intact, no neuro deficits. Psych: normal mood, normal affect, interactive DS: Data Data Completed and Pending Completed studies during hospitalization: Chest x-ray Chest/abdomen/pelvis CT Upper quadrant ultrasound Pending studies at discharge: None Labs on day of discharge: Labs from last 24 hours 06/29/23 06/29/23 06/29/23 12:13 08:11 05:36 WBC RBC Hgb Hct MCV MCH MCHC RDW Plt Count MPV Immature Gran % (Auto) Neut % (Auto) Lymph % (Auto) Childress % (Auto) Eos % (Auto) Baso % (Auto) Lymph # (Auto) Childress # (Auto) Eos # (Auto) Baso # (Auto) Abs Immat Gran (auto) Absolute Neuts (auto) Absolute Nucleated RBC Nucleated RBC % Sodium 140 Potassium 3.6 Chloride 108 H Carbon Dioxide 22 Anion Gap 10 BUN 17 Creatinine 1.00 Estim Creat Clear Calc 50 Estimated GFR 55 L Glucose 146 H POC Capillary Glucose 133 H 124 H Calcium 9.0 Total Bilirubin 1.2 AST 113 H ALT 19
[2023-06-29] MEDS: traMADol HCL (*CRX) 25 MG TABLET PO (14:51)
[2023-06-29 15:12] VITALS: BP 127/57; PULSE 68; RESP 16; TEMP 36.2; O2SAT 98
== END 2023-06-29 16:30 | disposition home or self-care (01) | DRG 446 ==
LOC: ANHED 15:35 → ANH3MED 18:02
PROVIDERS: Emergency Medicine; Internal Medicine; Nurse Practitioner Family; Student in an Organized Health Care Education/Training Program; Admitting Provider Hospitalist; Emergency Provider Emergency Medicine; PCP Clinical Nurse Specialist; Visit Provider Nurse Practitioner Acute Care
DX: K80.00 Calculus of gallbladder with acute cholecystitis without obstruction (principal); I48.0 Paroxysmal atrial fibrillation; E78.5 Hyperlipidemia, unspecified; E07.9 Disorder of thyroid, unspecified; E11.42 Type 2 diabetes mellitus with diabetic polyneuropathy; E66.9 Obesity, unspecified; F32.A Depression, unspecified; F41.9 Anxiety disorder, unspecified; J45.909 Unspecified asthma, uncomplicated; K58.9 Irritable bowel syndrome, unspecified; I25.10 Atherosclerotic heart disease of native coronary artery without angina pectoris; I10 Essential (primary) hypertension; Z79.01 Long term (current) use of anticoagulants; Z79.84 Long term (current) use of oral hypoglycemic drugs; Z79.4 Long term (current) use of insulin; Z98.2 Presence of cerebrospinal fluid drainage device; Z96.651 Presence of right artificial knee joint; Z86.718 Personal history of other venous thrombosis and embolism; Z86.73 Personal history of transient ischemic attack (TIA), and cerebral infarction without residual deficits; Z87.891 Personal history of nicotine dependence
CPT/HCPCS: 36415; 71046; 71260; 74177; 76705; 80053; 81001; 82948; 83690; 83735; 84484; 85025; 85610; 85730; 87086; 93005; 96365; 97161; 99285; A9270; C9113; J1650; J1815; J2543; J7030; Q9967

== ENCOUNTER 2023-07-02 11:17 | Outpatient (CLI) | payer MEDICARE, SELFPAY ==
[2023-07-02 11:55] LABS: Basophils Absolute Auto 0.1 K/mm3 (0.0-0.1); Basophils Percent Auto 0.9 % (0.2-1.2); Eosinophils Absolute Auto 0.4 K/mm3 (0-0.3); Eosinophils Percent Auto 5.1 % (0-4.4); Hematocrit 40.7 % (37.0-47.0); Hemoglobin 12.5 g/dL (12.0-15.0); Immature Granulocyte Absolute 0.03 K/mm3 (0.00-0.031); Immature Granulocyte Percent A 0.3 % (0-0.5); Lymphocytes Absolute Auto 1.55 K/mm3 (0.9-3.2); Lymphocytes Percent Auto 18.1 % (18.3-44.2); Mean Corpuscular HGB Conc 30.7 g/dl (32-36); Mean Corpuscular Hemoglobin 27.5 pg (26-34); Mean Corpuscular Volume 89.6 fl (80-100); Mean Platelet Volume 10.2 fl (7.4-10.4); Monocytes Absolute Auto 0.5 K/mm3 (0.1-0.6); Monocytes Percent Auto 6.1 % (2.6-8.5); Neutrophils Percent Auto 69.5 % (45.5-73.1); Platelet Count Result 298 k/mm3 (150-375); Red Blood Count 4.54 M/mm3 (4.2-5.4); White Blood Count 8.6 K/mm3 (4.5-10.0)
[2023-07-02 12:04] LABS: Alanine Aminotransferase 67 U/L (6-35); Albumin Level 4.1 g/dL (3.5-5.1); Alkaline Phosphatase 85 U/L (38-126); Amylase 54 U/L (30-110); Aspartate Amino Transferase 23 U/L (14-36); Bilirubin,Total 0.5 mg/dL (0.2-1.3); Lipase 51 U/L (23-300)
== END 2023-07-02 11:18 | disposition home or self-care (01) ==
LOC: ANHSURGERY 11:23
PROVIDERS: PCP Clinical Nurse Specialist; Visit Provider Surgery
DX: K81.0 Acute cholecystitis (principal)
CPT/HCPCS: 36415; 80076; 82150; 83690; 85025

== ENCOUNTER 2023-07-03 01:10 | Day surgery (SDC) | payer MEDICARE, SELFPAY ==
--- NOTE | 2023-07-01 12:08 | PC.NURSE ---
Report to the Outpatient Waiting Room, entrance under the green pavilion located off [facility], at time ___8:00 AM____ on date ___07/03/23____. Planned Procedure Time: _1000 . Time changes happen often and if your time is changed the preop area will call you the afternoon before. - You and your visitor will be asked to self-screen and do not enter if you have any COVID symptoms. - A mask is optional within the hospital at this time. Patients may have clear liquids (water, carbonated beverages, clear teas, apple juice) until 3 hours prior to surgery( 7:00 AM) with a maximum of 20 ounces. - No food from midnight until time of surgery - Infants may have breast milk until 4 hours before surgery, formula 6 hours prior to surgery. - Children will be allowed to drink immediately following surgery. If applicable, please bring a bottle or sippy cup to assist with drinking. Juice, water, soda, and popsicles are readily available. For infants on formula, please bring formula the day of surgery. Pacifiers are allowed. Take the following medications with a SIP of water the morning of surgery: _BUSPIRONE,GABAPENTIN ,METOPROLOL DO NOT STOP ANY OF YOUR OTHER PRESCRIPTION MEDICATIONS PRIOR TO SURGERY ?EXCEPT THE FOLLOWING Medications to discontinue per physician __PT STATES HOLD ELIQUIS 2 DAYS PRE OP PER DR VALLECILLO LAST DOSE 06/30/23 Please no make-up, nail palauan, hairspray, perfume, deodorant, or body powder the day of surgery. No jewelry (including any body piercings) or valuables the day of surgery, leave them at home. Please take a shower or bath the night before, or the morning of, surgery with an antibacterial soap. Wear comfortable, loose fitting clothing. Children are encouraged to wear pajamas. - Jewelry must be removed prior to entering the operating room. Rings and piercings that are not removed may be cut off. - The hospital will not accept responsibility for valuables. - Please leave all valuables, including medications, at home the day of surgery. If you are going home after surgery, a licensed class a regional drivers must drive you home. - NO public transportation without another adult if you receive anesthesia. - We recommend that an adult stay with you for 24 hours following discharge. - We also recommend that you do not drive, make important decision, drink alcoholic beverages, or take any drugs that were not prescribed by your health care provider for at least 24 hours after your discharge time. Follow any additional instructions given to you from your surgeon. If you or anyone in your household have experienced Covid symptoms in the past week, please notify your surgeon or the nurse liaison at the phone number below for possible testing. Telephone instructions given to __PATIENT and asked if any additional questions and then verbalized understanding. Patient advised to call surgeon office or pre surgery nurse liaison [phone] if any additional questions.
[2023-07-01 12:19] VITALS: BMI 32.1
[2023-07-03] VITALS (7 sets, daily range): BP systolic 134–159; BP diastolic 71–89; PULSE 62–83; RESP 12–14; TEMP 36.4–36.8; O2SAT 92–99
[2023-07-03 08:31] LABS: Glucose Point of Care 78 mg/dl (65-105)
--- NOTE | 2023-07-03 09:04 | WPDHPUPDATE1 ---
History and Physical Update Update Date/Time: 07/03/23 09:04 History and Physical has been reviewed, including an updated exam of the patient. There are NO changes in the patient's condition. Risks, benefits, and alternatives have been discussed and questions answered. Patient agrees to proceed with procedure.
--- NOTE | 2023-07-03 09:08 | WPDANESEPPF ---
Anes - Initial Pre Proc Eval Procedure: Operation Date: 07/03/23 10:00 Proposed Procedures p Laparoscopic Cholecystectomy - Anthony Melchor MD Date/Time: 07/03/23 09:08 Surgeon: Anthony Melchor MD Pre Op Diagnosis: acute cholecystitis Patient Data Age: 73 Gender: F Height: 1.65 m Weight: 87.55 kg Last Vital Signs Temp 97.5 F L 07/03/23 08:35 Pulse 62 07/03/23 08:35 Resp 14 07/03/23 08:35 BP 147/72 H 07/03/23 08:35 Pulse Ox 99 07/03/23 08:35 Allergies Allergy/AdvReac Type Severity Reaction Status Date / Time adhesive tape Allergy Intermediate Blister Verified 07/01/23 12:01 hydromorphone [From Dilaudid] Allergy Intermediate Itching Verified 07/01/23 12:01 morphine Allergy Intermediate Itching Verified 07/01/23 12:01 Home Medications Medication Instructions Recorded Confirmed Type apixaban 5 mg tablet (Eliquis) 5 mg PO BID 01/21/20 07/03/23 History metoprolol tartrate 25 mg tablet 25 mg PO BID 01/21/20 07/01/23 History blood-glucose meter #1 ea 05/04/20 06/27/23 Rx blood sugar diagnostic (OneTouch #200 strips 12/11/21 06/27/23 Rx Ultra Test strips) pen needle, diabetic 31 gauge x #360 ea 09/12/22 06/27/23 Rx 5/16 (BD Ultra-Fine Short Pen Needle) gabapentin 300 mg capsule 300 mg PO BID 90 days #180 caps 12/13/22 07/01/23 Rx linagliptin 5 mg tablet (Tradjenta) 5 mg PO QAM 90 days #90 tabs 12/13/22 07/01/23 Rx lisinopril 40 mg tablet 40 mg PO DAILY #90 tabs 02/07/23 07/01/23 Rx trazodone 100 mg tablet 100 mg PO QHS #90 tabs 02/07/23 07/01/23 Rx cetirizine 10 mg capsule (Zyrtec) 10 mg PO DAILY 04/15/23 07/01/23 History empagliflozin 25 mg tablet 25 mg PO DAILY 04/15/23 07/01/23 History (Jardiance) insulin aspart U-100 100 unit/mL 5 unit subcut AC 04/15/23 07/01/23 History (3 mL) subcutaneous pen (Novolog FlexPen U-100 Insulin aspart) insulin degludec 200 unit/mL (3 26 unit subcut QPM 04/15/23 07/01/23 History mL) subcutaneous pen (Tresiba FlexTouch U-200 insulin) vibegron 75 mg tablet (Gemtesa) 75 mg PO DAILY 04/15/23 07/01/23 History escitalopram oxalate 20 mg tablet 20 mg PO HS 04/27/23 07/01/23 History metformin 500 mg tablet 1,000 mg PO BID 04/27/23 07/01/23 History simvastatin 40 mg tablet 40 mg PO HS 04/27/23 07/01/23 History buspirone 5 mg tablet 5 mg PO BID #180 tabs 06/10/23 07/01/23 Rx tramadol 25 mg tablet 25 mg PO Q4H PRN pain #30 tabs 06/29/23 07/01/23 Rx Laboratory Tests 07/03/23 08:28 POC Capillary Glucose 78 mg/dl (65-105) Patient hx anesthesia problems: none Family hx anesthesia problems: none Results Review: All pre-operative results and documents have been reviewed as part of the pre-operative evaluation. [facility] Past Medical History Medical History A-fib Allergies Anxiety Arthritis Asthma Back injury L5 SI injection Back pain Brain bleed (2) CAD (coronary artery disease) Colon polyps Costochondritis Depression Diabetic neuropathy DVT (deep venous thrombosis) (~1979) LLE Generalized pruritus Hyperlipidemia Hypertension IBS (irritable bowel syndrome) Insomnia Leukocytosis Obesity Osteopenia Postmenopausal Thyroid disorder TIA (transient ischemic attack) Trigeminal neuropathy Type 2 diabetes mellitus Urinary incontinence Visceral hypersensitivity syndrome Surgical History Surgical History H/O foot surgery Left and right H/O knee surgery Left H/O: hysterectomy History of back surgery History of surgery of head placement of shunt Family History Family History Mother Muscular dystrophy Father Carcinoma of colon Grandparent Acute myocardial infarction Ruptured appendix Sibling Acute myocardial infarction Social History Social History Smoking pac
[2023-07-03] MEDS: ACETAMINOPHEN 500 MG TABLET 1000 MG PO (09:13)
[2023-07-03] MEDS: KETOROLAC 15 MG/ML VIAL (*BKC) IV PUSH (09:13)
[2023-07-03] MEDS: LACTATED RINGERS 1,000 ML 30 ML IV CONT ×2 (09:15→11:54)
[2023-07-03 10:20] LABS: Glucose Point of Care 79 mg/dl (65-105)
--- NOTE | 2023-07-03 10:20 | PHAR ---
TALKED TO LES IN PRE-OP. TOLD HER HYDROMORPHONE WAS REMOVED FROM [facility] SHE LISTS AN ALLERGY TO THIS (ITCHING). LES WILL TALK TO PERSON WHO REMOVED THE MED.
[2023-07-03] MEDS: ceFAZolin 2 GM/D5W 50 ML 2 GM/50 ML BAG IVPB (10:21)
--- NOTE | 2023-07-03 10:24 | W.PM.PROC2 ---
Procedure Note - Detailed Date of Procedure 07/03/23 Pre-op Diagnosis Acute cholecystitis with cholelithiasis Post-op Diagnosis Other (Chronic cholecystitis with gallstones) Procedure Performed Laparoscopic cholecystectomy Surgeon Anthony Melchor MD Jig Filler Laura Bray [facility] Anesthesia General and Local Indications Patient was recently in the hospital with severe right upper quadrant abdominal pain, nausea vomiting. Her liver function tests were elevated. With antibiotics this greatly improved. She was able to be discharged on a low-fat diet. She comes in now for laparoscopic cholecystectomy for acute, and probably chronic, cholecystitis. Findings Patient really only had chronic inflammation. Her gallbladder was thin walled. There or a lot of adhesions in the cholecystohepatic triangle. We had some additional bleeding as the cystic artery divided and a branch went posterior. This branch was divided as the gallbladder was being dissected off the liver to achieve the critical view of safety. It was clipped securely and eventually the area was hemostatic. Gallbladder was opened at the into the surgery and photographs were taken as per the patient's request. She had pigmented gallstones. There was no biliary ductal dilatation. Liver had fatty change. Description of Procedure Patient was taken to surgery and induced into general anesthesia. The abdomen is prepped and draped. Trocars were placed in the usual fashion using Bebo optical trocars and a 5 mm camera. The gallbladder was decompressed with a laparoscopic aspirator. The cholecystotomy was closed with a Vicryl endoloop. The gallbladder was then retracted anterosuperiorly. Traction was placed on the infundibulum. The lower portion of the gallbladder and infundibulum had quite a bit of fatty tissue around it. This had to be dissected off to grasp the gallbladder and dissect the cystic duct and cystic artery. There were a lot of adhesions that were tenacious in the area of the cystic duct and cystic artery consistent with chronic inflammation. With traction on the infundibulum, adhesions were taken down to the cystic duct and cystic artery. Once these 2 structures were pretty well identified, I then started dissecting the gallbladder off the liver to obtain the critical view of safety. I divided the peritoneum on the medial and lateral sides of the gallbladder. Then when I was attempting to free the gallbladder from the gallbladder fossa, we encountered brisk bleeding. Suction was used and it appeared a sizable branch of the cystic duct or an arterial branch from the liver was the source. There was also some soft tissue oozing around this area. I was unable to access the area of bleeding adequately with the cystic artery still attached to the gallbladder. The cystic artery was then clipped securely and divided near the gallbladder. This allowed good visualization between the gallbladder and the liver. The arterial branch was dissected and doubly clipped. I then did some further dissection and with the help of cautery, achieved good hemostasis in this area. I then returned to the cystic duct and dissected it out nearly its entire length. The cystic duct was then securely clipped and divided. I then returned to the area of bleeding and looked to see if there was any other bleeding to attend. Seeing none, I then carefully continued the dissection of the gallbladder off the liver. Eventually it was freed entirely. It was placed in an Endo-Catch bag and retrieved through the 10 11 epigastric trocar site. We then replaced the epigastric trocar. The gallbladder fossa and right upper quadrant were irrigated and suctioned. Additional cautery was used to achieve good hemostasis. The suctioning and irrigation were carried out repeatedly until all looked quite good with no evidence of bleeding or bile leakage. We then evacuated CO2 and removed the trocar sleeves. All skin wounds
[2023-07-03] MEDS: BUPIVACAINE/EPINEPHRINE 0.5% 10 ML VIAL 30 ML INFILTRATE (10:56)
[2023-07-03 12:09] LABS: Glucose Point of Care 112 mg/dl (65-105)
[2023-07-03] MEDS: fentaNYL CITRATE INJ (*CRX) 100 MCG/2 ML VIAL 25 MCG IV PUSH ×4 (12:14→12:29)
[2023-07-03] MEDS: ONDANSETRON INJ 4 MG/2 ML VIAL IV PUSH (12:20)
[2023-07-03] MEDS: oxyCODONE HCL (*CRX) 5 MG TAB IR PO (13:17)
--- NOTE | 2023-07-03 13:29 | SUR.PHASEII ---
1250 PATIENT AGITATED DUE TO INTENSE RIGHT FOOT ITCHINESS. PATIENT REPORTS THIS IS A CHRONIC PROBLEM.
== END 2023-07-03 13:25 | disposition home or self-care (01) ==
PROVIDERS: PCP Clinical Nurse Specialist; Visit Provider Surgery
PROC: 0FT44ZZ Resection of Gallbladder, Percutaneous Endoscopic Approach (ICD-10-PCS; CPT 47562; principal; 2023-07-03 10:00)
DX: K80.10 Calculus of gallbladder with chronic cholecystitis without obstruction (principal); I48.91 Unspecified atrial fibrillation; I25.10 Atherosclerotic heart disease of native coronary artery without angina pectoris; E11.40 Type 2 diabetes mellitus with diabetic neuropathy, unspecified; I10 Essential (primary) hypertension; E78.5 Hyperlipidemia, unspecified; F41.9 Anxiety disorder, unspecified; F32.A Depression, unspecified; Z86.718 Personal history of other venous thrombosis and embolism; Z86.73 Personal history of transient ischemic attack (TIA), and cerebral infarction without residual deficits; Z79.01 Long term (current) use of anticoagulants; Z79.84 Long term (current) use of oral hypoglycemic drugs; Z79.4 Long term (current) use of insulin; Z87.891 Personal history of nicotine dependence
CPT/HCPCS: 47562; 82948; 88304; A9270; J0690; J1100; J1170; J1200; J1885; J2405; J2704; J3010; J7120

== ENCOUNTER 2023-07-05 13:23 | Inpatient (IN) | payer MEDICARE, SELFPAY ==
[2023-07-05] VITALS (9 sets, daily range): BP systolic 122–159; BP diastolic 59–89; PULSE 82–88; RESP 14–19; TEMP 36.2–37.1; O2SAT 88–98; BMI 30.7
--- NOTE | ~2023-07-05 | NM_ITS ---
EXAMINATION: NM hepatobiliary wo pharm DATE: 07/05/2023 18:48 INDICATION: Abdominal pain status post cholecystectomy. COMPARISON: CT abdomen and pelvis 07/05/2023 TECHNIQUE: 5.1 mCi Tc-99m mebrofenin (Choletec) was administered intravenously. Scintigraphic images of the abdomen were obtained for one hour. FINDINGS: There is normal clearance of radiotracer from the blood pool. There is homogeneous tracer u ptake by the liver. Activity progresses to the bowel. There is pooling of activity in the gallbladde r fossa. IMPRESSION: 1. Bile leak. Reviewed, dictated and finalized at location E. IMPRESSION: 1. Bile leak.
--- NOTE | ~2023-07-05 | XR_ITS ---
EXAMINATION: XR chest 1V portable DATE: 07/17/2023 17:16 INDICATION: Chest pain. Shortness of breath. TECHNIQUE: A single frontal view of the chest was obtained. COMPARISON: Chest 2 views 06/27/2023, CT abdomen and pelvis 07/07/2023 FINDINGS: There is a diffuse interstitial pattern in the lungs, consistent with mild pulmonary edema. There is a small left pleural effusion. There are airspace opacities at left lung base, likely atele ctasis. No pneumothorax. The heart size is normal. A left-sided ventriculoperitoneal shunt is noted. IMPRESSION: 1. Mild pulmonary edema. 2. Small left pleural effusion. Reviewed, dictated and finalized at location A.
--- NOTE | ~2023-07-05 | XR_ITS ---
EXAMINATION: XR ERCP DATE: 07/08/2023 12:37 INDICATION: Bile leak after recent cholecystectomy. TECHNIQUE: 7 spot fluoroscopic images of the right upper quadrant were obtained during endoscopic ret rograde cholangiopancreatography (ERCP). Fluoroscopy exposure time was 350 seconds. COMPARISON: CT abdomen and pelvis 07/07/2023 FINDINGS: There are surgical clips from cholecystectomy. The endoscope is in the second portion of th e duodenum. There is opacification of the biliary tree. There is leakage of contrast in the gallbladd er fossa. The final images demonstrate a biliary stent in expected position. IMPRESSION: 1. Bile leak. 2. Biliary stent in expected position. Please refer to the ERCP procedure note for additional details . Reviewed, dictated and finalized at location A. IMPRESSION: 1. Bile leak. 2. Biliary stent in expected position. Please refer to the ERCP procedure note for additional details.
--- NOTE | ~2023-07-05 | CT_ITS ---
EXAMINATION: CT brain w con DATE: 07/08/2023 18:42 INDICATION: [employer] shunt presenting with infection TECHNIQUE: Computed tomography (CT) of the head was performed with 100 mL Omnipaque-350 intravenous c ontrast. Sagittal and coronal reconstructions were performed. The mA was adjusted according to patien t size. Iterative reconstruction technique was employed. The dose-length product was 681.00 mGy-cm. COMPARISON: None FINDINGS: Left ventriculoperitoneal shunt extending anteriorly from a left parietal occipital geovany hole with di stal tip at the anterior horn of the left lateral ventricle. Left frontal craniotomy with geovany hole a nd screw fixation. Finally there is metallic mesh along the superficial margin of the craniectomy def ect overlying the lateral right cerebellar hemisphere. No acute intracranial hemorrhage, acute infarc tion or abnormal extra axial fluid collection. There is moderate scattered white matter hypoattenuati on consistent with chronic small vessel ischemic disease. Ventricles are normal and symmetric. No ma ss/mass effect. No abnormally enhancing brain lesions. The orbits, paranasal sinuses and mastoid air cells are normal. IMPRESSION: 1. No acute intracranial process or abnormally enhancing brain lesions. 2. Postoperative changes as detailed above including a left lateral ventricular peritoneal shunt with distal tip at the anterior horn of the left lateral ventricle. 3. Moderate scattered white matter hypoattenuation consistent with chronic small vessel ischemic dise ase. Reviewed, dictated and finalized at location A. IMPRESSION: 1. No acute intracranial process or abnormally enhancing brain lesions. 2. Postoperative changes as detailed above including a left lateral ventricular peritoneal shunt with distal tip at the anterior horn of the left lateral vent ricle. 3. Moderate scattered white matter hypoattenuation consistent with chronic smal l vessel ischemic disease.
--- NOTE | ~2023-07-05 | CT_ITS ---
EXAMINATION: CT abdomen pelvis w con DATE: 07/07/2023 13:13 INDICATION: Bile leak. Ascites. TECHNIQUE: Computed tomography (CT) of the abdomen and pelvis was performed with 100 mL Omnipaque 350 intravenous contrast. Automated exposure control and iterative reconstruction technique were employe d. The dose-length product was 1385.70 mGy-cm. COMPARISON: CT abdomen and pelvis 07/05/2023 FINDINGS: There are small pleural effusions. There is mild dependent atelectasis bilaterally. The hea rt size is normal. No pericardial effusion. The liver and spleen are normal. There are surgical julio es of cholecystectomy. There is fluid in the gallbladder fossa. There is a moderate volume of ascites . The pancreas and adrenal glands are normal. There is cortical thinning of the kidneys. There is a 7 mm cyst in right kidney. There are no dilated loops of bowel. The appendix is normal. There are no p athologically enlarged lymph nodes. Body wall edema is noted. There are changes of anterior posterior fusion procedures at L5-S1. There is severe lumbar spondylosis and mild thoracic spondylosis. A vent riculoperitoneal shunt is noted. IMPRESSION: 1. Worsened moderate volume of ascites. 2. Worsened small pleural effusions. Reviewed, dictated and finalized at location A.
--- NOTE | ~2023-07-05 | US_ITS ---
EXAMINATION: US abdomen limited DATE: 07/08/2023 15:40 INDICATION: Ascites TECHNIQUE: Multiple grayscale and Doppler ultrasound images of the abdomen were obtained. COMPARISON: None FINDINGS: There is a negligible amount of fluid in the right lower quadrant with fluid pocket measuring approxi mate 1 x 2 cm. No evident ascites in the remaining 3 quadrants of the abdomen and pelvis. IMPRESSION: 1. Negligible ascites in the right lower quadrant which is insufficient for the planned paracentesis which was deferred. Reviewed, dictated and finalized at location A.
--- NOTE | ~2023-07-05 | CT_ITS ---
CT of the Abdomen and Pelvis: Indication: Abdominal pain, status post cholecystectomy Technique: 2.5 mm axial scans were obtained through the abdomen and pelvis following intravenous adm inistration of 100 cc of Omnipaque 350. Dose reduction technique was used on this scan by utilizing a utomated exposure control and iterative reconstruction technique. The dose-length product (DLP) was 1 218.89 mGy-cm. COMPARISON: 06/27/2023 Findings: Scans through the lung bases demonstrate minimal left pleural effusion and left basilar at electatic change. The liver, spleen, pancreas, adrenals and kidneys are within normal limits. Patient is status post in terval cholecystectomy, cholecystectomy clips. There is a small amount of amorphous fluid in the gall bladder fossa with tiny bubble of free air present in the gallbladder fossa. No evidence of aortic an eurysm. No lymphadenopathy. No bowel obstruction or bowel wall thickening. There is no evidence to suggest acute appendicitis. Images through the pelvis were performed. Small amount of pelvic ascites present. Urinary bladder unr emarkable. Status post hysterectomy. No pelvic mass evident. Impression: Status post interval cholecystectomy since 06/27/2023. Small amount of amorphous fluid in the gallbladd er fossa and tiny bubble free air, as well as small amount of pelvic ascites are present. These are l ikely normal postoperative changes/findings, however developing phlegmon/abscess or small bile leak c annot be excluded based on this exam. Clinical correlation is required. Consider HIDA scan if there i s any concern for bile leak. Correlate for signs/symptoms of infection. Minimal left pleural effusion. Reviewed, dictated and finalized at location M. Impression: Status post interval cholecystectomy since 06/27/2023. Small amount of amorphous fluid in the gallbladder fossa and tiny bubble free air, as well as small amoun t of pelvic ascites are present. These are likely normal postoperative changes/ findings, however developing phlegmon/abscess or small bile leak cannot be excl uded based on this exam. Clinical correlation is required. Consider HIDA scan i f there is any concern for bile leak. Correlate for signs/symptoms of infection . Minimal left pleural effusion.
[2023-07-05 13:41] LABS: Basophils Absolute Auto 0.1 K/mm3 (0.0-0.1); Basophils Percent Auto 0.3 % (0.2-1.2); Eosinophils Percent Auto 0.1 % (0-4.4); Hematocrit 35.2 % (37.0-47.0); Hemoglobin 11.3 g/dL (12.0-15.0); Immature Granulocyte Absolute 0.14 K/mm3 (0.00-0.031); Immature Granulocyte Percent A 0.7 % (0-0.5); Lymphocytes Absolute Auto 1.76 K/mm3 (0.9-3.2); Lymphocytes Percent Auto 8.6 % (18.3-44.2); Mean Corpuscular HGB Conc 32.1 g/dl (32-36); Mean Corpuscular Hemoglobin 27.8 pg (26-34); Mean Corpuscular Volume 86.7 fl (80-100); Mean Platelet Volume 10.3 fl (7.4-10.4); Monocytes Percent Auto 9.8 % (2.6-8.5); Neutrophils Absolute Auto 16.6 K/mm3 (1.3-6.7); Neutrophils Percent Auto 80.5 % (45.5-73.1); Platelet Count Result 314 k/mm3 (150-375); Red Blood Count 4.06 M/mm3 (4.2-5.4); Red Cell Distribution Width 14.9 % (11.5-14.5); White Blood Count 20.6 K/mm3 (4.5-10.0)
--- NOTE | 2023-07-05 13:49 | ED.ABDPAIN ---
HPI - Abdominal Pain General Chief Complaint: Abdominal Pain Stated Complaint: post op abd pain History of Present Illness HPI narrative: 73 years old white female came from home by ambulance because of generalize pain from the groin area old way up to her neck. started 2 days ago. Associated with nausea. She denies any fever, chills, vomiting, diarrhea, constipation or urinary symptoms. Patient is status post cholecystectomy 3 days ago Related Data Home Medications Medication Instructions Recorded Confirmed apixaban 5 mg tablet (Eliquis) 5 mg PO BID 01/21/20 07/05/23 metoprolol tartrate 25 mg tablet 25 mg PO BID 01/21/20 07/05/23 cetirizine 10 mg capsule (Zyrtec) 10 mg PO DAILY 04/15/23 07/05/23 empagliflozin 25 mg tablet 25 mg PO DAILY 04/15/23 07/05/23 (Jardiance) insulin aspart U-100 100 unit/mL 5 unit subcut AC 04/15/23 07/05/23 (3 mL) subcutaneous pen (Novolog FlexPen U-100 Insulin aspart) insulin degludec 200 unit/mL (3 26 unit subcut QPM 04/15/23 07/05/23 mL) subcutaneous pen (Tresiba FlexTouch U-200 insulin) vibegron 75 mg tablet (Gemtesa) 75 mg PO DAILY 04/15/23 07/05/23 escitalopram oxalate 20 mg tablet 20 mg PO HS 04/27/23 07/05/23 metformin 500 mg tablet 1,000 mg PO BID 04/27/23 07/05/23 simvastatin 40 mg tablet 40 mg PO HS 04/27/23 07/05/23 Allergies Allergy/AdvReac Type Severity Reaction Status Date / Time adhesive tape Allergy Intermediate Blister Verified 07/05/23 13:39 hydromorphone [From Dilaudid] Allergy Intermediate Itching Verified 07/05/23 13:39 morphine Allergy Intermediate Itching Verified 07/05/23 13:39 Review of Systems Review of Systems: All systems reviewed & are unremarkable except as noted in HPI and below PMFSH Past Medical History Medical History (Updated 07/05/23 @ 16:43 by Payton Zelaya, VERÓNICA) A-fib Allergies Anxiety Arthritis Asthma Back injury L5 SI injection Back pain Brain bleed (2) CAD (coronary artery disease) Colon polyps Costochondritis Depression Diabetic neuropathy DVT (deep venous thrombosis) (~1979) LLE Generalized pruritus Hyperlipidemia Hypertension IBS (irritable bowel syndrome) Insomnia Leukocytosis Obesity Osteopenia Postmenopausal Thyroid disorder TIA (transient ischemic attack) Trigeminal neuropathy Type 2 diabetes mellitus Urinary incontinence Visceral hypersensitivity syndrome Surgical History Surgical History (Updated 07/05/23 @ 21:41 by Reno Stokes MD) H/O foot surgery Left and right H/O knee surgery Left H/O: hysterectomy History of back surgery History of surgery of head placement of shunt Family History Family History Mother Muscular dystrophy Father Carcinoma of colon Grandparent Acute myocardial infarction Ruptured appendix Sibling Acute myocardial infarction Social History Social History Smoking packs per day: 0.75 Smoking cigarettes per day: 15.0 Years smoked: 5 Smoking pack-years: 3.75 Smoking status: Former smoker Second hand tobacco smoke exposure: Yes Additional smoking assessment comments: DENIES ANY FORM OF TOBACCO USE Alcohol intake: never Substance use: never Do You Feel Safe in your Home?: Yes Lack of Transportation: No Lack of Food: Never True Current Housing: I Have Housing Concerned About Future Housing: No Difficulty Paying Gas/Electric Bills: No Difficulty Paying for Meds: No Currently Unemployed: No Education: High School Diploma/GED Difficulty w/ Childcare or Family Care: No Living arrangements: alone Occupation/Education: retired Spiritual care concerns: No Exam Narrative: General appearance: Well-developed, well-nourished Skin: Normal color Head: Normocephalic, nontraumatic Eyes: Clear conjunctiva ENT: Oropharynx normal, ears normal, nose normal Neck: Supple, nontender Chest and respiratory: Airway p
[2023-07-05 13:56] LABS: Alanine Aminotransferase 35 U/L (6-35); Albumin Level 3.7 g/dL (3.5-5.1); Alkaline Phosphatase 73 U/L (38-126); Anion Gap 8 mmol/L (4-12); Aspartate Amino Transferase 29 U/L (14-36); Bilirubin,Total 0.7 mg/dL (0.2-1.3); Blood Urea Nitrogen 18 mg/dL (7-17); Calcium 9.2 mg/dL (8.4-10.2); Carbon Dioxide 23 mmol/L (22-30); Chloride 106 mmol/L (98-107); Estimated CRCL calculation 68 ml/min; Estimated Glomerular Filt Rate > 60; Glucose 123 mg/dL (65-110); Lipase 21 U/L (23-300); Potassium 3.9 mmol/L (3.4-5.0); Sodium 137 mmol/L (137-145)
[2023-07-05 14:12] LABS: Lactic Acid Reflex 2.4 mmol/L (0.7-2.0)
[2023-07-05] MEDS: ONDANSETRON INJ 4 MG/2 ML VIAL IV PUSH (14:12)
[2023-07-05] MEDS: SODIUM CHLORIDE 0.9% IV 1,000 ML 999 ML IV CONT (14:13)
[2023-07-05] MEDS: fentaNYL CITRATE INJ (*CRX) 100 MCG/2 ML VIAL 25 MCG IV PUSH ×3 (14:13→15:23)
--- NOTE | 2023-07-05 15:45 | P.PNIM_ITS ---
Progress Note: A&P Assessment and Plan (1) S/P laparoscopic cholecystectomy: Code(s): Z90.49 - Acquired absence of other specified parts of digestive tract Status: Acute Assessment and Plan: * Patient is postop day 3 from a lap cholecystectomy done by Dr. Melchor on an outpatient basis on 07/03/23 * Patient reporting increased abdominal pain over the last 2 days * Abdomen/pelvis CT shown a small amount amorphous fluid in the gallbladder fossa and tiny bubble free air as well as small amount of pelvic ascites are present which are likely normal postoperative changes however developing abscess or bile leak cannot be completely excluded. * General surgery consulted * White count elevated to 20.6, lactate 2.4 * Patient on 2L NC, with O2 saturation of 98% * Wean O2 to keep oxygen saturation greater than 92% (2) Abdominal pain: Qualifiers: Abdominal location: generalized Qualified Code(s): R10.84 - Generalized abdominal pain Code(s): R10.9 - Unspecified abdominal pain Status: Acute Assessment and Plan: * Continue pain control and nausea control * Patient is 3 days postop lap cholecystectomy by Dr. Melchor * General surgery following * Plan for HIDA scan * See above plan of care (3) Leukocytosis: Qualifiers: Leukocytosis type: unspecified Qualified Code(s): D72.829 - Elevated white blood cell count, unspecified Code(s): D72.829 - Elevated white blood cell count, unspecified Status: Acute Assessment and Plan: * White blood cell count 20.6 * Continue to trend * Patient is afebrile, vital signs are stable, she is on room air * Lactate was 2.4 * Patient given a dose of Zosyn for empirical coverage (4) Lactic acidosis: Code(s): E87.20 - Acidosis, unspecified Status: Acute Assessment and Plan: * Lactate 2.4 * Patient given 1L NS in the ER * Will recheck level (5) Insulin dependent diabetes mellitus: Status: Chronic Assessment and Plan: * Blood sugars ranging 111-123 * Last hemoglobin A1c was 8.6 on 03/12/2022 * Will recheck hemoglobin A1c in the morning * Accu-Cheks q6h * NPO status for now * Low-dose sliding scale insulin ordered * Will hold Tresiba, and start Lantus 10 units tonight * Hypoglycemic protocol in place (6) Depression: Qualifiers: Active/Remission status: remission status unspecified Depression Type: major depressive disorder Major depression recurrence: recurrent Qualified Code(s): F33.9 - Major depressive disorder, recurrent, unspecified Code(s): F32.9 - Major depressive disorder, single episode, unspecified Status: Chronic Assessment and Plan: * continue excitalopram (7) Hyperlipidemia: Qualifiers: Hyperlipidemia type: unspecified Qualified Code(s): E78.5 - Hyperlipidemia, unspecified Code(s): E78.5 - Hyperlipidemia, unspecified Status: Chronic Assessment and Plan: * Continue simvastatin (8) Hypertension: Qualifiers: Hypertension type: essential hypertension Qualified Code(s): I10 - Essential (primary) hypertension Code(s): I10 - Essential (primary) hypertension Status: Chronic Assessment and Plan: * Blood pressure ranging 136/89 to 143/60 * Continue lisinopril and metoprolol (9) Anxiety: Code(s): F41.9 - Anxiety disorder, unspecified Status: Acute Assessment and Plan: * Continue BuSpar (10) Fungal dermatitis: Code(s): B36.9 - Superficial mycosis, unspecified Status: Acute
--- NOTE | 2023-07-05 15:45 | PM.IMPN ---
Progress Note: A&P Assessment and Plan (1) S/P laparoscopic cholecystectomy: Code(s): Z90.49 - Acquired absence of other specified parts of digestive tract Status: Acute Assessment and Plan: Patient is postop day 3 from a lap cholecystectomy done by Dr. Melchor on an outpatient basis on 07/03/23 Patient reporting increased abdominal pain over the last 2 days Abdomen/pelvis CT shown a small amount amorphous fluid in the gallbladder fossa and tiny bubble free air as well as small amount of pelvic ascites are present which are likely normal postoperative changes however developing abscess or bile leak cannot be completely excluded. General surgery consulted White count elevated to 20.6, lactate 2.4 Patient on 2L NC, with O2 saturation of 98% Wean O2 to keep oxygen saturation greater than 92% (2) Abdominal pain: Qualifiers: Abdominal location: generalized Qualified Code(s): R10.84 - Generalized abdominal pain Code(s): R10.9 - Unspecified abdominal pain Status: Acute Assessment and Plan: Continue pain control and nausea control Patient is 3 days postop lap cholecystectomy by Dr. Melchor General surgery following Plan for HIDA scan See above plan of care (3) Leukocytosis: Qualifiers: Leukocytosis type: unspecified Qualified Code(s): D72.829 - Elevated white blood cell count, unspecified Code(s): D72.829 - Elevated white blood cell count, unspecified Status: Acute Assessment and Plan: White blood cell count 20.6 Continue to trend Patient is afebrile, vital signs are stable, she is on room air Lactate was 2.4 Patient given a dose of Zosyn for empirical coverage (4) Lactic acidosis: Code(s): E87.20 - Acidosis, unspecified Status: Acute Assessment and Plan: Lactate 2.4 Patient given 1L NS in the ER Will recheck level (5) Insulin dependent diabetes mellitus: Status: Chronic Assessment and Plan: Blood sugars ranging 111-123 Last hemoglobin A1c was 8.6 on 03/12/2022 Will recheck hemoglobin A1c in the morning Accu-Cheks q6h NPO status for now Low-dose sliding scale insulin ordered Will hold Tresiba, and start Lantus 10 units tonight Hypoglycemic protocol in place (6) Depression: Qualifiers: Active/Remission status: remission status unspecified Depression Type: major depressive disorder Major depression recurrence: recurrent Qualified Code(s): F33.9 - Major depressive disorder, recurrent, unspecified Code(s): F32.9 - Major depressive disorder, single episode, unspecified Status: Chronic Assessment and Plan: continue excitalopram (7) Hyperlipidemia: Qualifiers: Hyperlipidemia type: unspecified Qualified Code(s): E78.5 - Hyperlipidemia, unspecified Code(s): E78.5 - Hyperlipidemia, unspecified Status: Chronic Assessment and Plan: Continue simvastatin (8) Hypertension: Qualifiers: Hypertension type: essential hypertension Qualified Code(s): I10 - Essential (primary) hypertension Code(s): I10 - Essential (primary) hypertension Status: Chronic Assessment and Plan: Blood pressure ranging 136/89 to 143/60 Continue lisinopril and metoprolol (9) Anxiety: Code(s): F41.9 - Anxiety disorder, unspecified Status: Acute Assessment and Plan: Continue BuSpar (10) Fungal dermatitis: Code(s): B36.9 - Superficial mycosis, unspecified Status: Acute Assessment and Plan: Fungal noted under bilateral breasts, patient reports is itchy Benadryl ordered q6h Miconazole powder ordered BID Time Spent With Patient Time with patient: Greater than 35 minutes Subjective Date/time seen: 07/05/23 15:45 Interval history: This is a 73-year-old female with a past medical history of AFib, anxiety, asthma, coronary artery disease, depression, diabetic neuropathy, DVT, hyperli
[2023-07-05] MEDS: diphenhydrAMINE HCl INJ 50 MG/ML VIAL 25 MG IV PUSH (15:49)
[2023-07-05] MEDS: LACTATED RINGERS 1,000 ML 250 ML IV CONT (16:14)
[2023-07-05 16:24] LABS: Appearance Urine Clear (Clear); Bilirubin Urine Negative (Negative); Blood Urine Negative (Negative); Color Urine Yellow (Yellow); Glucose Urine UA 3+ mg/dL (Negative); Ketones Urine Trace mg/dL (Negative); Leukocyte Esterase Ur Negative LEU/UL (Negative); Nitrate Urine Negative (Negative); Protein Urine Negative (Negative); Specific Grav Ur 1.028 (1.001-1.035); Urobilinogen Urine 0.2 mg/dL (<2.0)
[2023-07-05 16:51] LABS: Add Urine Microscopic? NO
[2023-07-05 16:56] LABS: Reflex Lactic Acid Yes or No Add Lactic
--- NOTE | 2023-07-05 17:47 | ADMGEN ---
This patient, Alicia Del Toro, was admitted to Medical Room 250-01. Patient/family oriented to hospital policies and general routines including ID bracelet, bed and alarms, visiting hours, pain management, procedures, bathroom and other care routines, personal items, smoking policy, room service/diet, and visiting hours. Information on how to activate the Rapid Response Team has been discussed. Patient/Family are encouraged to report perceived risks to care and to ask questions if they do not understand what they are told or what they should do.
[2023-07-05 17:56] LABS: Lactic Acid 1.4 mmol/L (0.7-2.0)
[2023-07-05 18:21] LABS: Procalcitonin 2.2 ng/mL
[2023-07-05 18:47] LABS: CRP 21.5 mg/dL (<1.0)
[2023-07-05 19:09] LABS: Glucose Point of Care 108 mg/dl (65-105)
[2023-07-05] MEDS: PIPERACILLN/TAZ 3.375GM/NS50ML 3.375 GM/50 ML BAG IVPB (19:22)
[2023-07-05 19:45] LABS: INR 1.5; Prothrombin Time 19.5 Seconds (11.1-14.7)
[2023-07-05] MEDS: GABAPENTIN 300 MG CAPSULE PO (20:13)
[2023-07-05] MEDS: ESCITALOPRAM OXALATE 10 MG TABLET 20 MG PO (20:13)
[2023-07-05] MEDS: METOPROLOL TARTRATE 25 MG TABLET PO (20:13)
[2023-07-05] MEDS: traZODone HCL 50 MG TABLET 100 MG PO (20:13)
[2023-07-05] MEDS: SIMVASTATIN 20 MG TABLET 40 MG PO (20:14)
[2023-07-05] MEDS: HYDROcodone/acetaminophen (*CRX) 5-325 MG TABLET 1 TAB PO (20:14)
[2023-07-05] MEDS: busPIRone HCL 5 MG TABLET PO (20:14)
[2023-07-05] MEDS: LACTATED RINGERS 1,000 ML 100 ML IV CONT (20:27)
[2023-07-05] MEDS: metroNIDAZOLE 500 MG/ISO 100ML 500 MG/100 ML BAG 100 MG IVPB (20:28)
[2023-07-05] MEDS: INSULIN GLARGINE (*BKC) 100 UNITS/ML 10 UNITS SUB-Q (20:31)
[2023-07-05] MEDS: TOLNAFTATE 1% POWDER 45 GM BTL 1 APPLIC TOPICAL (20:31)
[2023-07-05 23:59] LABS: Glucose Point of Care 108 mg/dl (65-105)
[2023-07-06] VITALS (9 sets, daily range): BP systolic 102–121; BP diastolic 56–78; PULSE 63–90; RESP 16–18; TEMP 36.1–36.6; O2SAT 95–99
[2023-07-06] MEDS: PIPERACILLN/TAZ 3.375GM/NS50ML 3.375 GM/50 ML BAG IVPB ×5 (00:05→23:35)
[2023-07-06] MEDS: metroNIDAZOLE 500 MG/ISO 100ML 500 MG/100 ML BAG 100 MG IVPB ×3 (03:19→19:30)
[2023-07-06] MEDS: fentaNYL CITRATE INJ (*CRX) 100 MCG/2 ML VIAL 50 MCG IV PUSH ×2 (03:31→07:41)
[2023-07-06 05:33] LABS: Basophils Absolute Auto 0.1 K/mm3 (0.0-0.1); Basophils Percent Auto 0.3 % (0.2-1.2); Eosinophils Absolute Auto 0.3 K/mm3 (0-0.3); Eosinophils Percent Auto 2.2 % (0-4.4); Hematocrit 34.2 % (37.0-47.0); Hemoglobin 10.6 g/dL (12.0-15.0); Immature Granulocyte Absolute 0.08 K/mm3 (0.00-0.031); Immature Granulocyte Percent A 0.5 % (0-0.5); Lymphocytes Absolute Auto 1.47 K/mm3 (0.9-3.2); Lymphocytes Percent Auto 9.4 % (18.3-44.2); Mean Corpuscular Hemoglobin 27.9 pg (26-34); Mean Platelet Volume 10.5 fl (7.4-10.4); Monocytes Absolute Auto 1.7 K/mm3 (0.1-0.6); Neutrophils Absolute Auto 11.9 K/mm3 (1.3-6.7); Neutrophils Percent Auto 76.6 % (45.5-73.1); Platelet Count Result 314 k/mm3 (150-375); White Blood Count 15.6 K/mm3 (4.5-10.0)
[2023-07-06 05:41] LABS: Hemoglobin A1C 6.1 % (<5.7)
[2023-07-06 05:56] LABS: Alanine Aminotransferase 30 U/L (6-35); Albumin Level 3.2 g/dL (3.5-5.1); Alkaline Phosphatase 72 U/L (38-126); Anion Gap 3 mmol/L (4-12); Aspartate Amino Transferase 22 U/L (14-36); Bilirubin,Total 0.8 mg/dL (0.2-1.3); Blood Urea Nitrogen 17 mg/dL (7-17); Calcium 8.4 mg/dL (8.4-10.2); Carbon Dioxide 28 mmol/L (22-30); Chloride 106 mmol/L (98-107); Estimated CRCL calculation 60 ml/min; Estimated Glomerular Filt Rate > 60; Glucose 87 mg/dL (65-110); Potassium 3.8 mmol/L (3.4-5.0); Sodium 137 mmol/L (137-145)
[2023-07-06 07:32] LABS: Glucose Point of Care 88 mg/dl (65-105)
[2023-07-06] MEDS: KETOROLAC 15 MG/ML VIAL (*BKC) IV PUSH ×3 (09:44→21:47)
[2023-07-06] MEDS: GABAPENTIN 300 MG CAPSULE PO ×2 (09:49→17:16)
[2023-07-06] MEDS: METOPROLOL TARTRATE 25 MG TABLET PO ×2 (09:49→20:37)
[2023-07-06] MEDS: busPIRone HCL 5 MG TABLET PO ×2 (09:49→20:37)
[2023-07-06] MEDS: lisinopriL 20 MG TABLET 40 MG PO (09:49)
[2023-07-06] MEDS: TOLNAFTATE 1% POWDER 45 GM BTL 1 APPLIC TOPICAL ×2 (09:50→20:37)
[2023-07-06] MEDS: EMPAGLIFLOZIN 25 MG TABLET PO (09:50)
[2023-07-06] MEDS: LACTATED RINGERS 1,000 ML 100 ML IV CONT ×2 (10:00→22:50)
[2023-07-06] MEDS: DOCUSATE SODIUM 100 MG CAPSULE PO ×2 (10:00→17:16)
--- NOTE | 2023-07-06 11:11 | P.PNIM_ITS ---
Progress Note: A&P Assessment and Plan (1) Bile leak, postoperative: Code(s): K91.89 - Other postprocedural complications and disorders of digestive system; K83.8 - Other specified diseases of biliary tract Status: Acute Assessment and Plan: 07/06/23: * HIDA scan positive for bile leak * GI consulted and plans on taking patient for stent placement on Saturday * General surgery following patient is postop lap cholecystectomy * Continue Zosyn and Flagyl * Continue pain control (2) S/P laparoscopic cholecystectomy: Code(s): Z90.49 - Acquired absence of other specified parts of digestive tract Status: Acute Assessment and Plan: 07/05/23: * Patient is postop day 3 from a lap cholecystectomy done by Dr. Melchor on an outpatient basis on 07/03/23 * Patient reporting increased abdominal pain over the last 2 days * Abdomen/pelvis CT shown a small amount amorphous fluid in the gallbladder fossa and tiny bubble free air as well as small amount of pelvic ascites are present which are likely normal postoperative changes however developing abscess or bile leak cannot be completely excluded. * General surgery consulted * White count elevated to 20.6, lactate 2.4 * Patient on 2L NC, with O2 saturation of 98% * Wean O2 to keep oxygen saturation greater than 92% 07/06/23: * General surgery following (3) Abdominal pain: Qualifiers: Abdominal location: generalized Qualified Code(s): R10.84 - Generalized abdominal pain Code(s): R10.9 - Unspecified abdominal pain Status: Acute Assessment and Plan: 07/05/23: * Continue pain control and nausea control * Patient is 3 days postop lap cholecystectomy by Dr. Melchor * General surgery following * Plan for HIDA scan * See above plan of care 07/06/23: * Continue pain control and nausea control * General surgery following * HIDA scan showing bile leak * GI consulted due to the bile leak and will take patient for stent on Saturday * White blood cell count down to 15.6 * Continue with Zosyn and Flagyl (4) Leukocytosis: Qualifiers: Leukocytosis type: unspecified Qualified Code(s): D72.829 - Elevated white blood cell count, unspecified Code(s): D72.829 - Elevated white blood cell count, unspecified Status: Acute Assessment and Plan: 07/05/23: * White blood cell count 20.6 * Continue to trend * Patient is afebrile, vital signs are stable, she is on room air * Lactate was 2.4 * Patient given a dose of Zosyn for empirical coverage 07/06/23: * White blood cell count down to 15.6 (5) Fungal dermatitis: Code(s): B36.9 - Superficial mycosis, unspecified Status: Acute Assessment and Plan: 07/05/23: * Fungal noted under bilateral breasts, patient reports is itchy * Benadryl ordered q6h * Miconazole powder ordered BID 07/06/23: * Looking better today * Continue with current treatment plan (6) Lactic acidosis: Code(s): E87.20 - Acidosis, unspecified Status: Acute Assessment and Plan: 07/05/23: * Lactate 2.4 * Patient given 1L NS in the ER * Will recheck level 07/06/23: Lactate 1.4 * Resolved (7) Insulin dependent diabetes mellitus: Status: Chronic Assessment and Plan: 07/05/23: * Blood sugars ranging 111-123 * Last hemoglobin A1c was 8.6 on 03/12/2022 * Will recheck hemoglobin A1c in the morning * Accu-Cheks q6h * NPO status for now * Low-dose sliding scale insulin ordered * Will hold Tresiba, and start Lantus 10 units tonight * Hypogl
--- NOTE | 2023-07-06 11:11 | PM.IMPN ---
Progress Note: A&P Assessment and Plan (1) Bile leak, postoperative: Code(s): K91.89 - Other postprocedural complications and disorders of digestive system; K83.8 - Other specified diseases of biliary tract Status: Acute Assessment and Plan: 07/06/23: HIDA scan positive for bile leak GI consulted and plans on taking patient for stent placement on Saturday General surgery following patient is postop lap cholecystectomy Continue Zosyn and Flagyl Continue pain control (2) S/P laparoscopic cholecystectomy: Code(s): Z90.49 - Acquired absence of other specified parts of digestive tract Status: Acute Assessment and Plan: 07/05/23: Patient is postop day 3 from a lap cholecystectomy done by Dr. Melchor on an outpatient basis on 07/03/23 Patient reporting increased abdominal pain over the last 2 days Abdomen/pelvis CT shown a small amount amorphous fluid in the gallbladder fossa and tiny bubble free air as well as small amount of pelvic ascites are present which are likely normal postoperative changes however developing abscess or bile leak cannot be completely excluded. General surgery consulted White count elevated to 20.6, lactate 2.4 Patient on 2L NC, with O2 saturation of 98% Wean O2 to keep oxygen saturation greater than 92% 07/06/23: General surgery following (3) Abdominal pain: Qualifiers: Abdominal location: generalized Qualified Code(s): R10.84 - Generalized abdominal pain Code(s): R10.9 - Unspecified abdominal pain Status: Acute Assessment and Plan: 07/05/23: Continue pain control and nausea control Patient is 3 days postop lap cholecystectomy by Dr. Melchor General surgery following Plan for HIDA scan See above plan of care 07/06/23: Continue pain control and nausea control General surgery following HIDA scan showing bile leak GI consulted due to the bile leak and will take patient for stent on Saturday White blood cell count down to 15.6 Continue with Zosyn and Flagyl (4) Leukocytosis: Qualifiers: Leukocytosis type: unspecified Qualified Code(s): D72.829 - Elevated white blood cell count, unspecified Code(s): D72.829 - Elevated white blood cell count, unspecified Status: Acute Assessment and Plan: 07/05/23: White blood cell count 20.6 Continue to trend Patient is afebrile, vital signs are stable, she is on room air Lactate was 2.4 Patient given a dose of Zosyn for empirical coverage 07/06/23: White blood cell count down to 15.6 (5) Fungal dermatitis: Code(s): B36.9 - Superficial mycosis, unspecified Status: Acute Assessment and Plan: 07/05/23: Fungal noted under bilateral breasts, patient reports is itchy Benadryl ordered q6h Miconazole powder ordered BID 07/06/23: Looking better today Continue with current treatment plan (6) Lactic acidosis: Code(s): E87.20 - Acidosis, unspecified Status: Acute Assessment and Plan: 07/05/23: Lactate 2.4 Patient given 1L NS in the ER Will recheck level 07/06/23: Lactate 1.4 Resolved (7) Insulin dependent diabetes mellitus: Status: Chronic Assessment and Plan: 07/05/23: Blood sugars ranging 111-123 Last hemoglobin A1c was 8.6 on 03/12/2022 Will recheck hemoglobin A1c in the morning Accu-Cheks q6h NPO status for now Low-dose sliding scale insulin ordered Will hold Tresiba, and start Lantus 10 units tonight Hypoglycemic protocol in place 07/06/23: Blood sugars ranging 88-108 Continue with current treatment plan (8) Depression: Qualifiers: Active/Remission status: remission status unspecified Depression Type: major depressive disorder Major depression recurrence: recurrent Qualified Code(s): F33.9 - Major depressive disorder, recurrent, unspecified Code(s): F32.9 - Major depressive disorder, single episode, unspecified Status: Chronic Assessment and P
[2023-07-06] MEDS: fentaNYL CITRATE INJ (*CRX) 100 MCG/2 ML VIAL 75 MCG IV PUSH (11:53)
[2023-07-06 12:10] LABS: Glucose Point of Care 97 mg/dl (65-105)
--- NOTE | 2023-07-06 14:06 | WPDGICN ---
Assessment and Plan Assessment and plan (1) Bile leak, postoperative: Code(s): K91.89 - Other postprocedural complications and disorders of digestive system; K83.8 - Other specified diseases of biliary tract Status: Acute Assessment and Plan: imaging reviewed and discussed with patients she is agreeable to proceed with ERCP and bile duct placement, understood risk including pancreatitis and bleeding surgery to see patient keep on hold her eliquis since we will be doing ercp on Saturday (2) Abdominal pain: Qualifiers: Abdominal location: generalized Qualified Code(s): R10.84 - Generalized abdominal pain Code(s): R10.9 - Unspecified abdominal pain Status: Acute Assessment and Plan: still significant pain despite meds by primary (3) Type 2 diabetes mellitus: Qualifiers: Diabetes mellitus ad terminal makeup 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 insulin use: with ad terminal makeup operator use Diabetes mellitus complication status: with hyperglycemia Qualified Code(s): E11.65 - Type 2 diabetes mellitus with hyperglycemia; 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 Code(s): E11.9 - Type 2 diabetes mellitus without complications Status: Acute Assessment and Plan: on meds (4) Leukocytosis: Qualifiers: Leukocytosis type: unspecified Qualified Code(s): D72.829 - Elevated white blood cell count, unspecified Code(s): D72.829 - Elevated white blood cell count, unspecified Status: Acute Assessment and Plan: on abx trending down (5) S/P laparoscopic cholecystectomy: Code(s): Z90.49 - Acquired absence of other specified parts of digestive tract Status: Acute GI Consult Note Consult date/time: 07/06/23 14:06 Reason for consult: bile leak after recent cholecystectomy HPI: Alicia Del Toro is a 73 year old female with history of DM on insulin, A fib on eliquis with recent hospitalization for symptomatic cholelithiasis, abdominal pain, nausea and elevated lft's, she went home and came back for outpatient lap rossi 3 days ago, noted chronic GB inflammation and adhesions. She is back after severe upper abdominal pain with nausea, no fever. Work up noted leukocytosis, HIDA scan confirms bile leak. Liver enzymes normal. Started on abx, on liquid diet and given pain meds. Review of Systems Constitutional: Constitutional: Denies chills Eyes: Eyes: Denies blurry vision ENT: Reports Normal hearing present, Denies headache(s) and Denies neck pain Cardiovascular: Cardiovascular: Denies chest pain and Denies dyspnea Respiratory: Respiratory: Denies dyspnea Gastrointestinal: Gastrointestinal: Reports abdominal pain and Reports nausea Genitourinary: Genitourinary: Denies dysuria Musculoskeletal: Musculoskeletal: Denies neck pain Integumentary/Breasts: Skin/Breast: Denies dry skin Neurologic: Reports Normal hearing present, Denies headache(s) and Denies weakness Psychiatric: Psychiatric: Denies anxiety Endocrine: Endocrine: Denies change in body appearance [facility] Past Medical History Medical History (Updated 07/06/23 @ 11:21 by Payton Zelaya APRN) A-fib Allergies Anxiety Arthritis Asthma Back injury L5 SI injection Back pain Brain bleed (2) CAD (coronary artery disease) Colon polyps Costochondritis Depression Diabetic neuropathy DVT (deep venous thrombosis) (~1979) LLE Generalized pruritus Hyperlipidemia Hypertension IBS (irritable bowel syndrome) Insomnia Leukocytosis Obesity Osteopenia Postmenopausal Thyroid disorder TIA (transient ischemic attack) Trigeminal neuropathy Type 2 diabetes mellitus Urinary incontinence Visceral hypersensitivity syndrome Surgical History Surgical History (Updated 07/05/23 @ 21:41 by Reno Stokes MD) H/O foot surgery Left and right H/O knee surgery Left H/O: hysterectomy History of back surgery History of surgery of head placement of shunt Family History Family History (Reviewed 07/05/23
--- NOTE | 2023-07-06 15:02 | WPDCN ---
Assessment and Plan Assessment and plan (1) Bile leak, postoperative: Code(s): K91.89 - Other postprocedural complications and disorders of digestive system; K83.8 - Other specified diseases of biliary tract Status: Acute Assessment and Plan: Patient appears to have a small postoperative bile leak. Her abdominal pain is likely due to bile peritonitis. If there is significant amounts of fluid in the abdomen then image guided therapeutic paracentesis to drain the bile would be indicated. Dr. Sears from GI has seen the patient and the plan is to perform ERCP with stent placement on Saturday. The meantime since her white blood count [id number] would recommend continued Zosyn for IV antibiotics. Supportive management. HPI Data of Consult Date/Time: 07/06/23 15:02 Requesting Physician: Rosina Vanessa MD Primary Care Provider: [facility] Ochoa-Sof[facility] Consult Narrative Reason for consult: Abdominal pain after laparoscopic cholecystectomy Narrative: Alicia Del Toro is a 73 year old female who re-presented to the emergency room after having a laparoscopic cholecystectomy by Dr. Melchor 3 days ago. Worsening abdominal pain and abdominal distention was noted. No fever. Workup in emergency room with a CT scan abdomen pelvis showed small amount of pelvic ascites fluid and fluid in the gallbladder fossa. HIDA scan performed yesterday showed pooling of contrast in the gallbladder fossa consistent with a small bile leak. Contrast did reach the duodenum without difficulty. She is admitted to the hospital and started on IV fluids as she is not eating much lately. GI consultation has been requested for ERCP to treat the bile leak. Review of Systems Review of Systems: The remainder of the review of systems to include constitutional, HEENT, cardiovascular, respiratory, GI, , integumentary, musculoskeletal, endocrine, immunologic, hematologic, psychiatric, and neurologic are all negative except for which is mentioned above in the HPI. [facility] Past Medical History Medical History A-fib Allergies Anxiety Arthritis Asthma Back injury L5 SI injection Back pain Brain bleed (2) CAD (coronary artery disease) Colon polyps Costochondritis Depression Diabetic neuropathy DVT (deep venous thrombosis) (~1979) LLE Generalized pruritus Hyperlipidemia Hypertension IBS (irritable bowel syndrome) Insomnia Leukocytosis Obesity Osteopenia Postmenopausal Thyroid disorder TIA (transient ischemic attack) Trigeminal neuropathy Type 2 diabetes mellitus Urinary incontinence Visceral hypersensitivity syndrome Surgical History Surgical History H/O foot surgery Left and right H/O knee surgery Left H/O: hysterectomy History of back surgery History of surgery of head placement of shunt Family History Family History Mother Muscular dystrophy Father Carcinoma of colon Grandparent Acute myocardial infarction Ruptured appendix Sibling Acute myocardial infarction Social History Social History Smoking packs per day: 0.75 Smoking cigarettes per day: 15.0 Years smoked: 5 Smoking pack-years: 3.75 Smoking status: Former smoker Second hand tobacco smoke exposure: Yes Additional smoking assessment comments: DENIES ANY FORM OF TOBACCO USE Alcohol intake: never Substance use: never Do You Feel Safe in your Home?: Yes Lack of Transportation: No Lack of Food: Never True Current Housing: I Have Housing Concerned About Future Housing: No Difficulty Paying Gas/Electric Bills: No Difficulty Paying for Meds: No Currently Unemployed: No Education: High School Diploma/GED Difficulty w/ Childcare or Family Care: No Living arrangements: alone Occupation/Education: retired [employer]
[2023-07-06 18:02] LABS: Glucose Point of Care 86 mg/dl (65-105)
[2023-07-06] MEDS: HYDROcodone/acetaminophen (*CRX) 5-325 MG TABLET 1 TAB PO (18:45)
[2023-07-06] MEDS: SIMVASTATIN 20 MG TABLET 40 MG PO (20:36)
[2023-07-06] MEDS: traZODone HCL 50 MG TABLET 100 MG PO (20:37)
[2023-07-06] MEDS: ESCITALOPRAM OXALATE 10 MG TABLET 20 MG PO (20:37)
[2023-07-06] MEDS: INSULIN GLARGINE (*BKC) 100 UNITS/ML 10 UNITS SUB-Q (20:38)
[2023-07-06 23:37] LABS: Glucose Point of Care 115 mg/dl (65-105)
[2023-07-07] VITALS (18 sets, daily range): BP systolic 104–133; BP diastolic 50–70; PULSE 93–142; RESP 16–20; TEMP 36.3–37.1; O2SAT 93–98
--- NOTE | 2023-07-07 00:01 | ECG_ITS ---
SEE SCANNED COPY FOR CONFIRMED REPORT MTDD
[2023-07-07 00:34] LABS: Alanine Aminotransferase 23 U/L (6-35); Albumin Level 2.8 g/dL (3.5-5.1); Alkaline Phosphatase 68 U/L (38-126); Anion Gap 4 mmol/L (4-12); Aspartate Amino Transferase 20 U/L (14-36); Bilirubin,Total 0.8 mg/dL (0.2-1.3); Blood Urea Nitrogen 19 mg/dL (7-17); Calcium 8.2 mg/dL (8.4-10.2); Carbon Dioxide 26 mmol/L (22-30); Chloride 106 mmol/L (98-107); Estimated CRCL calculation 60 ml/min; Estimated Glomerular Filt Rate > 60; Glucose 109 mg/dL (65-110); Potassium 3.5 mmol/L (3.4-5.0); Sodium 136 mmol/L (137-145)
[2023-07-07 00:46] LABS: Troponin I < 0.012 ng/mL (0.000-0.034)
[2023-07-07 01:08] LABS: Lipase 16 U/L (23-300)
[2023-07-07] MEDS: oxyCODONE/ACETAMINOPHEN (*CRX) 5-325 MG TABLET 1 TABLET PO ×3 (01:14→23:36)
[2023-07-07] MEDS: metroNIDAZOLE 500 MG/ISO 100ML 500 MG/100 ML BAG 100 MG IVPB ×3 (03:10→19:43)
[2023-07-07] MEDS: fentaNYL CITRATE INJ (*CRX) 100 MCG/2 ML VIAL 75 MCG IV PUSH ×3 (03:17→12:10)
[2023-07-07 05:21] LABS: Basophils Absolute Auto 0.1 K/mm3 (0.0-0.1); Basophils Percent Auto 0.4 % (0.2-1.2); Eosinophils Absolute Auto 0.7 K/mm3 (0-0.3); Eosinophils Percent Auto 4.3 % (0-4.4); Hematocrit 33.4 % (37.0-47.0); Hemoglobin 10.4 g/dL (12.0-15.0); Immature Granulocyte Absolute 0.13 K/mm3 (0.00-0.031); Immature Granulocyte Percent A 0.7 % (0-0.5); Lymphocytes Percent Auto 7.5 % (18.3-44.2); Mean Corpuscular HGB Conc 31.1 g/dl (32-36); Mean Corpuscular Hemoglobin 27.5 pg (26-34); Mean Corpuscular Volume 88.4 fl (80-100); Mean Platelet Volume 9.8 fl (7.4-10.4); Monocytes Absolute Auto 1.6 K/mm3 (0.1-0.6); Neutrophils Absolute Auto 13.6 K/mm3 (1.3-6.7); Neutrophils Percent Auto 78.1 % (45.5-73.1); Platelet Count Result 328 k/mm3 (150-375); Red Blood Count 3.78 M/mm3 (4.2-5.4); Red Cell Distribution Width 14.8 % (11.5-14.5); White Blood Count 17.4 K/mm3 (4.5-10.0)
[2023-07-07 05:36] LABS: Alanine Aminotransferase 22 U/L (6-35); Albumin Level 2.9 g/dL (3.5-5.1); Alkaline Phosphatase 73 U/L (38-126); Anion Gap 4 mmol/L (4-12); Aspartate Amino Transferase 19 U/L (14-36); Bilirubin,Total 0.9 mg/dL (0.2-1.3); Blood Urea Nitrogen 20 mg/dL (7-17); Calcium 8.1 mg/dL (8.4-10.2); Carbon Dioxide 25 mmol/L (22-30); Chloride 106 mmol/L (98-107); Estimated CRCL calculation 60 ml/min; Estimated Glomerular Filt Rate > 60; Glucose 97 mg/dL (65-110); Potassium 3.5 mmol/L (3.4-5.0); Sodium 135 mmol/L (137-145)
[2023-07-07 05:42] LABS: Glucose Point of Care 103 mg/dl (65-105)
[2023-07-07 05:46] LABS: Troponin I < 0.012 ng/mL (0.000-0.034)
[2023-07-07] MEDS: PIPERACILLN/TAZ 3.375GM/NS50ML 3.375 GM/50 ML BAG IVPB ×4 (06:02→23:29)
[2023-07-07] MEDS: GABAPENTIN 300 MG CAPSULE PO (08:20)
[2023-07-07] MEDS: lisinopriL 20 MG TABLET 40 MG PO (08:21)
[2023-07-07] MEDS: busPIRone HCL 5 MG TABLET PO ×2 (08:21→19:51)
[2023-07-07] MEDS: METOPROLOL TARTRATE 25 MG TABLET PO ×2 (08:22→19:51)
[2023-07-07] MEDS: EMPAGLIFLOZIN 25 MG TABLET PO (08:22)
[2023-07-07] MEDS: DOCUSATE SODIUM 100 MG CAPSULE PO (08:22)
[2023-07-07] MEDS: TOLNAFTATE 1% POWDER 45 GM BTL 1 APPLIC TOPICAL ×2 (08:25→19:47)
--- NOTE | 2023-07-07 10:20 | WPDPN ---
Progress Note: A&P Assessment and Plan (1) Bile leak, postoperative: Code(s): K91.89 - Other postprocedural complications and disorders of digestive system; K83.8 - Other specified diseases of biliary tract Status: Acute Assessment and Plan: Will get CT scan abdomen pelvis today without contrast. Need to evaluate the amount of bile in the abdomen. If it is significant then patient will benefit from image guided drain placement to evaluate the bile. ERCP to be done tomorrow by GI. Hopefully stent placement will stop the bile leak. Continue supportive management. Continue IV antibiotics. Subjective Date/time seen: 07/07/23 10:20 Interval history: Patient still uncomfortable having abdominal pain. She is taking IV pain medications. Diffuse pain throughout the abdomen expected due to bile peritonitis from bile leak. GI plans on ERCP tomorrow for stent placement to stop the bile leak. No fever. Exam GI: Other: Mildly distended. Moderate diffuse tenderness to palpation. Port sites healing well. Objective Data Vital Signs Vital Signs: Vital Signs - 24 hr 07/06/23 13:20 07/06/23 19:43 07/06/23 20:37 Temperature 36.6 C Pulse Rate 90 84 Respiratory Rate 18 Blood Pressure 102/56 L Pulse Oximetry 98 98 Oxygen Delivery Nasal Cannula Oxygen Flow Rate 2 Fraction of Inspired Oxygen 07/06/23 20:48 07/06/23 21:00 07/07/23 05:44 Temperature 36.1 C L 36.3 C L Pulse Rate 63 100 Respiratory Rate 18 18 Blood Pressure 121/60 117/70 Pulse Oximetry 99 98 98 Oxygen Delivery Nasal Cannula Oxygen Flow Rate 2 Fraction of Inspired Oxygen 28 07/07/23 08:22 Temperature Pulse Rate 100 Respiratory Rate Blood Pressure Pulse Oximetry Oxygen Delivery Oxygen Flow Rate Fraction of Inspired Oxygen Intake/Output Intake/Output: Intake & Output 07/04/23 07/05/23 07/06/23 07/07/23 23:59 23:59 23:59 23:59 Intake Total 2150 3250 320 Output Total 400 550 300 Balance 1750 2700 20 Meds/Results Medications: Active Medications Generic Name Dose Route Start Last Admin Trade Name Freq PRN Reason Stop Dose Admin Acetaminophen 1,000 mg 07/06/23 15:08 Acetaminophen 500 Mg Tablet PO Q6H PRN Mild Pain (1-3) or Fever Bisacodyl 5 mg 07/05/23 16:15 Bisacodyl 5 Mg Tablet Ec PO DAILY PRN Constipation Bisacodyl 10 mg 07/05/23 16:15 Bisacodyl 10 Mg Suppository RECTAL ONCE PRN Constipation Buspirone HCl 5 mg 07/05/23 21:00 07/07/23 08:21 Buspirone Hcl 5 Mg Tablet PO 5 mg Q12HR ADAM Administration Dextrose 12.5 gm 07/05/23 16:18 Dextrose 50% 25 Gm/50 Ml Syringe IV PUSH PRN PRN Hypoglycemia Protocol Diphenhydramine HCl 25 mg 07/05/23 16:17 Diphenhydramine Hcl Cap 25 Mg Capsule PO Q6H PRN Itching Docusate Sodium 100 mg 07/05/23 17:00 07/07/23 08:22 Docusate Sodium 100 Mg Capsule PO 100 mg BID ADAM Administration Empagliflozin 25 mg 07/06/23 09:00 07/07/23 08:22 Empagliflozin 25 Mg Tablet PO 25 mg DAILY ADAM Administration Escitalopram Oxalate 20 mg 07/05/23 21:00 07/06/23 20:37 Escitalopram Oxalate 10 Mg Tablet PO 20 mg HS ADAM Administration Fentanyl Citrate 75 mcg 07/06/23 08:38 07/07/23 09:46 Fentanyl Citrate Inj (*Crx) 100 Mcg/2 Ml Vial IV PUSH 75 mcg Q2H PRN Administration Pain Rated 7-10 Gabapentin 300 mg 07/05/23 19:05 07/07/23 08:20 Gabapentin 300 Mg Capsule PO 300 mg BID ADAM Administration Glucagon 1 mg 07/05/23 16:18 Glucagon For Inj 1 Mg Vial IM PRN PRN Hypoglycemia Protocol Glucose 15 gm 07/05/23 16:18 Glucose Oral Gel 15 Gm Of Glucse In 37.5 Gm Tube PO PRN PRN Hypoglycemia Protocol Piperacillin/Tazobactam/Dextrose 3.375 gm in 50 mls @ 100 mls/hr 07/05/23 18:00 07/07/23 06:32 Zosyn 3.375 Gm/Ns 50 Ml IVPB Infused Q6H ADAM Infusion Lactated Ringer
--- NOTE | 2023-07-07 12:35 | WPDGIPROGNO ---
Progress Note: A&P Assessment and Plan (1) Bile leak, postoperative: Code(s): K91.89 - Other postprocedural complications and disorders of digestive system; K83.8 - Other specified diseases of biliary tract Status: Acute Assessment and Plan: ercp tomorrow with bile duct stent daughter and patient agreeable to proceed npo after midnight (2) Abdominal pain: Qualifiers: Abdominal location: generalized Qualified Code(s): R10.84 - Generalized abdominal pain Code(s): R10.9 - Unspecified abdominal pain Status: Acute Assessment and Plan: iv pain meds (3) Leukocytosis: Qualifiers: Leukocytosis type: unspecified Qualified Code(s): D72.829 - Elevated white blood cell count, unspecified Code(s): D72.829 - Elevated white blood cell count, unspecified Status: Acute Assessment and Plan: on iv abx (4) Status post cholecystectomy: Code(s): Z90.49 - Acquired absence of other specified parts of digestive tract Status: Acute Subjective Date/time seen: 07/07/23 12:35 Interval history: similar abdominal pain requiring iv pain meds daughter at bedside Review of Systems Review of Systems: All systems reviewed & are unremarkable except as noted in HPI and below Exam Const: General: no acute distress Other: some discomfort because abd pain HENMT: Face/Nose/Sinus: Normal nares present Eyes: Sclera: sclerae normal Neck: Neck: supple Resp: Effort & Inspection: normal respiratory effort Auscultation: clear to auscultation bilaterally Cardio: Rate: regular rate Rhythm: regular rhythm GI: GI Palp: Yes Soft to palpation, Yes Tenderness to palpation present (GI) and Yes Guarding due to palpation present (GI) Auscultation: normal bowel sounds Other: Mild distension. Skin: General skin exam: normal color Neuro: Speech: normal speech Motor exam (neuro): 5/5 motor strength present throughout Extrem: General: no edema Psych: Attitude: not belligerent Objective Data Vital Signs Vital Signs: Vital Signs - 24 hr 07/06/23 13:20 07/06/23 19:43 07/06/23 20:37 Temperature 97.8 F Pulse Rate 90 84 Respiratory Rate 18 Blood Pressure 102/56 L Pulse Oximetry 98 98 Oxygen Delivery Nasal Cannula Oxygen Flow Rate 2 Fraction of Inspired Oxygen 07/06/23 20:48 07/06/23 21:00 07/07/23 05:44 Temperature 97 F L 97.3 F L Pulse Rate 63 100 Respiratory Rate 18 18 Blood Pressure 121/60 117/70 Pulse Oximetry 99 98 98 Oxygen Delivery Nasal Cannula Oxygen Flow Rate 2 Fraction of Inspired Oxygen 07/07/23 08:22 Temperature Pulse Rate 100 Respiratory Rate Blood Pressure Pulse Oximetry Oxygen Delivery Oxygen Flow Rate Fraction of Inspired Oxygen Intake/Output Intake/Output: Intake & Output 07/04/23 07/05/23 07/06/23 07/07/23 23:59 23:59 23:59 23:59 Intake Total 2150 3250 1320 Output Total 400 550 300 Balance 1750 2700 1020 Meds/Results Medications: Active Medications Generic Name Dose Route Start Last Admin Trade Name Freq PRN Reason Stop Dose Admin Acetaminophen 1,000 mg 07/06/23 15:08 Acetaminophen 500 Mg Tablet PO Q6H PRN Mild Pain (1-3) or Fever Bisacodyl 5 mg 07/05/23 16:15 Bisacodyl 5 Mg Tablet Ec PO DAILY PRN Constipation Bisacodyl 10 mg 07/05/23 16:15 Bisacodyl 10 Mg Suppository RECTAL ONCE PRN Constipation Buspirone HCl 5 mg 07/05/23 21:00 07/07/23 08:21 Buspirone Hcl 5 Mg Tablet PO 5 mg Q12HR ADAM Administration Dextrose 12.5 gm 07/05/23 16:18 Dextrose 50% 25 Gm/50 Ml Syringe IV PUSH PRN PRN Hypoglycemia Protocol Diphenhydramine HCl 25 mg 07/05/23 16:17 Diphenhydramine Hcl Cap 25 Mg Capsule PO Q6H PRN Itching Docusate Sodium 100 mg 07/05/23 17:00 07/07/23 08:22 Docusate Sodium 100 Mg Capsule PO 100 mg BID ADAM Administration Escitalo
[2023-07-07] MEDS: METOPROLOL TARTRATE INJ 5 MG/5 ML VIAL 2.5 MG IV PUSH (14:31)
[2023-07-07] MEDS: IBUPROFEN IV 800 MG/200 ML 800 MG/200 ML BAG 400 MG IVPB (14:56)
[2023-07-07] MEDS: DEXTROSE 5%/LACTATED RINGERS 1,000 ML 100 ML IV CONT (14:56)
[2023-07-07] MEDS: diphenhydrAMINE HCl INJ 50 MG/ML VIAL 25 MG IV PUSH ×2 (14:57→21:08)
[2023-07-07] MEDS: HYDROmorphone HCL INJ (*CRX) 1 MG/ML SYR 0.5 MG IV PUSH ×3 (14:58→21:09)
[2023-07-07] MEDS: LACTATED RINGERS 1,000 ML 999 ML IV CONT (15:51)
[2023-07-07 18:04] LABS: Glucose Point of Care 96 mg/dl (65-105)
[2023-07-07] MEDS: METOPROLOL TARTRATE INJ 5 MG/5 ML VIAL IV PUSH (18:05)
--- NOTE | 2023-07-07 18:11 | ECG_ITS ---
SEE SCANNED COPY FOR CONFIRMED REPORT. MTDD
[2023-07-07] MEDS: ESCITALOPRAM OXALATE 10 MG TABLET 20 MG PO (19:51)
[2023-07-07] MEDS: traZODone HCL 50 MG TABLET 100 MG PO (19:51)
[2023-07-07] MEDS: SIMVASTATIN 20 MG TABLET 40 MG PO (19:51)
[2023-07-07 19:58] LABS: Glucose Point of Care 107 mg/dl (65-105)
[2023-07-07 19:58] LABS: Troponin I < 0.012 ng/mL (0.000-0.034)
--- NOTE | 2023-07-07 20:10 | PC.NURSE ---
Patient transferred to IMU room 211; report provided to PAULINE Cardona.
--- NOTE | 2023-07-07 20:29 | PC.NURSE ---
This patient, Alicia Del Toro, was received from [address] [place] [address] on 07/07/23 at 2020. Patient/family oriented to unit policies and routines
--- NOTE | 2023-07-07 21:04 | ECG_ITS ---
SEE SCANNED COPY FOR CONFIRMED REPORT MTDD
[2023-07-07 23:54] LABS: Glucose Point of Care 99 mg/dl (65-105)
[2023-07-08] VITALS (28 sets, daily range): BP systolic 98–144; BP diastolic 47–97; PULSE 79–129; RESP 16–20; TEMP 35.9–36.9; O2SAT 92–100
[2023-07-08] MEDS: GABAPENTIN 100 MG CAPSULE PO (01:01)
[2023-07-08] MEDS: HYDROmorphone HCL INJ (*CRX) 1 MG/ML SYR 0.5 MG IV PUSH ×6 (01:02→20:28)
--- NOTE | 2023-07-08 01:37 | PC.NURSE ---
Dr Ramirez called per patients continuous complaints of pain. Ok for kpad, order received to give toradol now regardless of pain scale. Physician states he will come and evaluate the patient.
[2023-07-08] MEDS: KETOROLAC 15 MG/ML VIAL (*BKC) IV PUSH (02:02)
[2023-07-08] MEDS: LORazepam INJ (*CRX) 2 MG/ML VIAL 0.5 MG IV PUSH (02:11)
[2023-07-08] MEDS: metroNIDAZOLE 500 MG/ISO 100ML 500 MG/100 ML BAG 100 MG IVPB ×3 (03:08→20:24)
[2023-07-08] MEDS: diphenhydrAMINE HCl INJ 50 MG/ML VIAL 25 MG IV PUSH ×3 (03:20→20:28)
[2023-07-08] MEDS: DEXTROSE 5%/LACTATED RINGERS 1,000 ML 100 ML IV CONT ×2 (03:40→20:20)
[2023-07-08 04:45] LABS: Basophils Absolute Auto 0.1 K/mm3 (0.0-0.1); Basophils Percent Auto 0.2 % (0.2-1.2); Eosinophils Absolute Auto 0.4 K/mm3 (0-0.3); Hematocrit 33.4 % (37.0-47.0); Hemoglobin 10.6 g/dL (12.0-15.0); Immature Granulocyte Absolute 0.16 K/mm3 (0.00-0.031); Immature Granulocyte Percent A 0.7 % (0-0.5); Lymphocytes Absolute Auto 1.13 K/mm3 (0.9-3.2); Lymphocytes Percent Auto 5.1 % (18.3-44.2); Mean Corpuscular HGB Conc 31.7 g/dl (32-36); Mean Corpuscular Hemoglobin 27.9 pg (26-34); Mean Corpuscular Volume 87.9 fl (80-100); Mean Platelet Volume 10.2 fl (7.4-10.4); Monocytes Percent Auto 9.2 % (2.6-8.5); Neutrophils Absolute Auto 18.2 K/mm3 (1.3-6.7); Neutrophils Percent Auto 82.8 % (45.5-73.1); Platelet Count Result 386 k/mm3 (150-375); Red Cell Distribution Width 14.8 % (11.5-14.5)
[2023-07-08 05:05] LABS: Alanine Aminotransferase 17 U/L (6-35); Albumin Level 2.9 g/dL (3.5-5.1); Alkaline Phosphatase 81 U/L (38-126); Anion Gap 8 mmol/L (4-12); Aspartate Amino Transferase 17 U/L (14-36); Bilirubin,Total 0.9 mg/dL (0.2-1.3); Blood Urea Nitrogen 16 mg/dL (7-17); Calcium 8.1 mg/dL (8.4-10.2); Carbon Dioxide 22 mmol/L (22-30); Chloride 106 mmol/L (98-107); Estimated CRCL calculation 68 ml/min; Estimated Glomerular Filt Rate > 60; Glucose 132 mg/dL (65-110); Magnesium 1.6 mg/dL (1.6-2.3); Potassium 3.4 mmol/L (3.4-5.0); Sodium 136 mmol/L (137-145)
[2023-07-08 05:17] LABS: Platelet Estimate Slightly Increased (Adequate)
[2023-07-08 05:19] LABS: Anisocytosis 1+; Large Platelets Present; Schistocytes None Seen
[2023-07-08] MEDS: PIPERACILLN/TAZ 3.375GM/NS50ML 3.375 GM/50 ML BAG IVPB ×4 (06:27→23:21)
[2023-07-08 06:37] LABS: Glucose Point of Care 140 mg/dl (65-105)
[2023-07-08] MEDS: DOCUSATE SODIUM 100 MG CAPSULE PO ×2 (08:59→17:25)
[2023-07-08] MEDS: TOLNAFTATE 1% POWDER 45 GM BTL 1 APPLIC TOPICAL ×2 (09:00→20:33)
[2023-07-08] MEDS: PANTOPRAZOLE SODIUM IV 40 MG VIAL IV PUSH (09:00)
[2023-07-08] MEDS: busPIRone HCL 5 MG TABLET PO ×2 (09:00→20:23)
--- NOTE | 2023-07-08 10:07 | PM.CNCAR ---
Assessment and Plan Assessment and plan (1) PAF (paroxysmal atrial fibrillation): Code(s): I48.0 - Paroxysmal atrial fibrillation Status: Acute Assessment and Plan: [id number] 4. Normally on Eliquis which is on hold due to anticipation of GI procedure, ERCP. Was in sinus rhythm and has been over a year since in atrial fib, just on Metoprolol. 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 Tristan with [facility]. Rapid atrial fib now. Start Sotalol 80 mg PO every 12 hours to get her back in sinus rhythm. Continue Metoprolol for now for rate control. Check EKG 1-2 hours post each dose. (2) Bile leak, postoperative: Code(s): K91.89 - Other postprocedural complications and disorders of digestive system; K83.8 - Other specified diseases of biliary tract Status: Acute Assessment and Plan: GI planning on ERCP. (3) Hyperlipidemia: Qualifiers: Hyperlipidemia type: unspecified Qualified Code(s): E78.5 - Hyperlipidemia, unspecified Code(s): E78.5 - Hyperlipidemia, unspecified Status: Chronic Assessment and Plan: On Simvastatin. (4) Hypertension: Qualifiers: Hypertension type: essential hypertension Qualified Code(s): I10 - Essential (primary) hypertension Code(s): I10 - Essential (primary) hypertension Status: Chronic Assessment and Plan: Stable. History of Present Illness History of Present Illness Consult date/time: 07/08/23 10:07 Reason For Visit: Post Cholecystectomy Intra Abdominal Infection Gabriela Narrative: 73 yr old woman presents to hospital with abdominal pain after cholecystectomy. She has a history of DM, hypertension, dyslipidemia, PAF. Her cardiology is Dr. Tristan with [facility] at [place]. Reports she is having a lot of abdominal pain with radiation to her back, neck, shoulder, chest. It was noted she went into rapid atrial fibrillation here. Denies orthopnea, PND, edema, dizziness, palpitations. Review of Systems Review of Systems: All systems reviewed & are unremarkable except as noted in HPI and below Constitutional: Constitutional: Reports as per HPI, Denies chills and Denies fever(s) Cardiovascular: Cardiovascular: Reports as per HPI, Reports chest pain and Denies irregular heart rhythm Respiratory: Respiratory: Reports as per HPI and Denies dyspnea Gastrointestinal: Gastrointestinal: Reports as per HPI and Reports abdominal pain Genitourinary: Genitourinary: Reports as per HPI and Denies dysuria Musculoskeletal: Musculoskeletal: Reports as per HPI, Reports back pain, Reports arthralgias and Reports neck pain Neurologic: Reports as per HPI, Denies dizziness and Denies syncope [facility] Past Medical History Medical History A-fib Allergies Anxiety Arthritis Asthma Back injury L5 SI injection Back pain Brain bleed (2) CAD (coronary artery disease) Colon polyps Costochondritis Depression Diabetic neuropathy DVT (deep venous thrombosis) (~1979) LLE Generalized pruritus Hyperlipidemia Hypertension IBS (irritable bowel syndrome) Insomnia Leukocytosis Obesity Osteopenia Postmenopausal Thyroid disorder TIA (transient ischemic attack) Trigeminal neuropathy Type 2 diabetes mellitus Urinary incontinence Visceral hypersensitivity syndrome Surgical History Surgical History H/O foot surgery Left and right H/O knee surgery Left H/O: hysterectomy History of back surgery History of surgery of head placement of shunt Family History Family History Mother Muscular dystrophy Father Carcinoma of colon Grandparent Acute myocardial infarction Ruptured appendix Sibling Acute myocardial infarction Social History Social History Smoking packs per day: 0.75 Smoki
--- NOTE | 2023-07-08 10:24 | WPDANESEPPF ---
Anes - Initial Pre Proc Eval Procedure: Operation Date: 07/08/23 11:30 Proposed Procedures p Endoscopic Retro Cholangiopancreatogram - Collins Osborn MD Date/Time: 07/08/23 10:24 Surgeon: Rosina Vanessa MD Pre Op Diagnosis: Post Cholecystectomy Intra Abdominal Infection Gabriela Patient Data Age: 73 Gender: F Height: 1.65 m Weight: 83.6 kg Last Vital Signs Temp 96.7 F L 07/08/23 07:33 Pulse 102 H 07/08/23 07:33 Resp 18 07/08/23 07:33 BP 144/97 H 07/08/23 09:17 Pulse Ox 99 07/08/23 07:33 O2 Del Method Room Air 07/08/23 04:00 O2 Flow Rate 2 07/07/23 08:20 FiO2 28 07/06/23 21:00 Allergies Allergy/AdvReac Type Severity Reaction Status Date / Time adhesive tape Allergy Intermediate Blister Verified 07/05/23 13:39 hydromorphone [From Dilaudid] Allergy Intermediate Itching Verified 07/05/23 13:39 morphine Allergy Intermediate Itching Verified 07/05/23 13:39 Home Medications Medication Instructions Recorded Confirmed Type apixaban 5 mg tablet (Eliquis) 5 mg PO BID 01/21/20 07/05/23 History metoprolol tartrate 25 mg tablet 25 mg PO BID 01/21/20 07/05/23 History blood-glucose meter #1 ea 05/04/20 07/05/23 Rx blood sugar diagnostic (OneTouch #200 strips 12/11/21 07/05/23 Rx Ultra Test strips) pen needle, diabetic 31 gauge x #360 ea 09/12/22 07/05/23 Rx 5/16 (BD Ultra-Fine Short Pen Needle) gabapentin 300 mg capsule 300 mg PO BID 90 days #180 caps 12/13/22 07/05/23 Rx linagliptin 5 mg tablet (Tradjenta) 5 mg PO QAM 90 days #90 tabs 12/13/22 07/05/23 Rx lisinopril 40 mg tablet 40 mg PO DAILY #90 tabs 02/07/23 07/05/23 Rx trazodone 100 mg tablet 100 mg PO QHS #90 tabs 02/07/23 07/05/23 Rx cetirizine 10 mg capsule (Zyrtec) 10 mg PO DAILY 04/15/23 07/05/23 History empagliflozin 25 mg tablet 25 mg PO DAILY 04/15/23 07/05/23 History (Jardiance) insulin aspart U-100 100 unit/mL 5 unit subcut AC 04/15/23 07/05/23 History (3 mL) subcutaneous pen (Novolog FlexPen U-100 Insulin aspart) insulin degludec 200 unit/mL (3 26 unit subcut QPM 04/15/23 07/05/23 History mL) subcutaneous pen (Tresiba FlexTouch U-200 insulin) vibegron 75 mg tablet (Gemtesa) 75 mg PO DAILY 04/15/23 07/05/23 History escitalopram oxalate 20 mg tablet 20 mg PO HS 04/27/23 07/05/23 History metformin 500 mg tablet 1,000 mg PO BID 04/27/23 07/05/23 History simvastatin 40 mg tablet 40 mg PO HS 04/27/23 07/05/23 History buspirone 5 mg tablet 5 mg PO BID #180 tabs 06/10/23 07/05/23 Rx tramadol 25 mg tablet 25 mg PO Q4H PRN pain #30 tabs 06/29/23 07/05/23 Rx ibuprofen 600 mg tablet 600 mg PO Q6H PRN pain #14 tabs 07/03/23 07/05/23 Rx oxycodone-acetaminophen 5 mg-325 1 - 2 tablet PO Q6H PRN pain #10 07/05/23 07/05/23 Rx mg tablet (Percocet) tabs Laboratory Tests 07/07/23 07/07/23 07/07/23 17:57 19:31 19:51 WBC RBC Hgb Hct MCV MCH MCHC RDW Plt Count MPV Immature Gran % (Auto) Neut % (Auto) Lymph % (Auto) Coffey % (Auto) Eos % (Auto) Baso % (Auto) Lymph # (Auto) Coffey # (Auto) Eos # (Auto) Baso # (Auto) Abs Immat Gran (auto) Absolute Neuts (auto) Absolute Nucleated RBC Nucleated RBC % Platelet Estimate Large Platelets Anisocytosis Schistocytes Sodium Potassium Chloride Carbon Dioxide Anion Gap BUN Creatinine Estim Creat Clear Calc Estimated GFR Glucose POC Capillary Glucose 96 mg/dl 107 H mg/dl (65-105) (65-105) Calcium Magnesium Total Bilirubin AST ALT Alk
[2023-07-08 10:45] LABS: Glucose Point of Care 146 mg/dl (65-105)
[2023-07-08] MEDS: LACTATED RINGERS 1,000 ML 150 ML IV CONT (10:46)
[2023-07-08] MEDS: INDOMETHACIN 50 MG SUPP.RECT RECTAL (11:37)
--- NOTE | 2023-07-08 12:57 | PM.IMHP ---
H&P: HPI History of Present Illness Date/Time: 07/08/23 12:57 Chief Complaint: abdominal pain Narrative: This is a 73-year-old female with a past medical history of AFib, anxiety, asthma, coronary artery disease, depression, diabetic neuropathy, DVT, hyperlipidemia, hypertension, insomnia, obesity, type 2 diabetes who presents to the ED with chief complaint of abdominal pain which progressively gotten worse over the last 2 days with associated nausea.? She states that she has not passed gas or had a bowel movement since the surgery. She is distended and tender over her entire abdomen. Lap sites with surgical glue look like they are healing well. She does have a red fungal rash under her breasts that she describes as itchy.? Patient had a recent hospital admission on 06/27/2023 for diagnosis of acute cholecystitis and was discharged on 06/29/2023 with plans to see Dr[address] Melchor on an outpatient basis for removal of her gallbladder.? Patient was taken to the outpatient OR on 07/03/2023 and had a laparoscopic cholecystectomy without complication at that time.? She is currently postop day 3 and reporting worsening abdominal pain over the last 2 days with associated nausea.? Workup in the hospital includes a CT of the abdomen/pelvis which shown small amount of amorphous fluid in the gallbladder fossa and tiny bubble free air as well as small amount of pelvic ascites present, minimal left pleural effusion, no bowel obstruction or bowel wall thickening seen.? Initial labs show a white blood cell count of 20.6, hemoglobin 11.3, lactate was 2.4, liver enzymes are normal, lipase was 21. Plan for HIDA scan and to continue Zosyn. General surgery consulted. Review of Systems Review of Systems: All systems reviewed & are unremarkable except as noted in HPI and below Constitutional: Constitutional: Reports as per HPI and Reports no additional constitutional complaints Eyes: Eyes: Reports as per HPI and Reports no additional eye complaints ENT: Reports system reviewed and no additional complaints, except as documented and Reports as per HPI Cardiovascular: Cardiovascular: Reports as per HPI and Reports no additional cardiovascular complaints Respiratory: Respiratory: Reports as per HPI and Reports no additional respiratory complaints Gastrointestinal: Gastrointestinal: Reports as per HPI and Reports no additional gastrointestinal complaints Genitourinary: Genitourinary: Reports no additional female genitourinary complaints and Reports as per HPI Musculoskeletal: Musculoskeletal: Reports no additional musculoskeletal complaints and Reports as per HPI Integumentary/Breasts: Skin/Breast: Reports system reviewed and no additional complaints, except as docu and Reports as per HPI Neurologic: Reports system reviewed and no additional complaints, except as documented and Reports as per HPI Psychiatric: Psychiatric: Reports no additional psychiatric complaints and Reports as per HPI [facility] Past Medical History Medical History A-fib Allergies Anxiety Arthritis Asthma Back injury L5 SI injection Back pain Brain bleed (2) CAD (coronary artery disease) Colon polyps Costochondritis Depression Diabetic neuropathy DVT (deep venous thrombosis) (~1979) LLE Generalized pruritus Hyperlipidemia Hypertension IBS (irritable bowel syndrome) Insomnia Leukocytosis Obesity Osteopenia Postmenopausal Thyroid disorder TIA (transient ischemic attack) Trigeminal neuropathy Type 2 diabetes mellitus Urinary incontinence Visceral hypersensitivity syndrome Surgical History Surgical History H/O foot surgery Left and right H/O knee surgery Left H/O: hysterectomy History of back surgery History of surgery of head placement of shunt Family History Family History Mother Muscular dystrophy Father
[2023-07-08 13:08] LABS: Glucose Point of Care 149 mg/dl (65-105)
[2023-07-08] MEDS: SOTALOL HCL 80 MG TABLET PO ×2 (14:19→20:24)
[2023-07-08] MEDS: SODIUM CHLORIDE 0.9% IV 1,000 ML 999 ML IV CONT (15:03)
[2023-07-08 15:41] LABS: Troponin I < 0.012 ng/mL (0.000-0.034)
--- NOTE | 2023-07-08 16:12 | ECG_ITS ---
SEE SCANNED COPY FOR CONFIRMED REPORT MTDD
[2023-07-08 16:56] LABS: Glucose Point of Care 151 mg/dl (65-105)
[2023-07-08] MEDS: IBUPROFEN IV 800 MG/200 ML 800 MG/200 ML BAG 400 MG IVPB (17:26)
--- NOTE | 2023-07-08 17:49 | WPDPN ---
Progress Note: A&P Assessment and Plan (1) Bile leak, postoperative: Code(s): K91.89 - Other postprocedural complications and disorders of digestive system; K83.8 - Other specified diseases of biliary tract Status: Acute Assessment and Plan: Postoperative bile leak after laparoscopic cholecystectomy. This has been treated with ERCP and sphincterotomy and placement of common bile duct stent to cover the area of leak. We will see how the patient progresses now that the leak is stopped. If she continues to have quite a bit of pain from the bile peritonitis then she may need to have laparoscopy and abdominal washout. Continue IV antibiotics. Subjective Date/time seen: 07/08/23 17:49 Interval history: Patient had placement of common bile duct stone today for bile leak by Dr. Sears. Patient is having quite a bit of abdominal pain due to bile peritonitis. White blood count is around 20,000. She remains on IV antibiotics. Exam GI: Other: Diffuse abdominal tenderness to palpation. No masses. Objective Data Vital Signs Vital Signs: Vital Signs - 24 hr 07/07/23 18:05 07/07/23 19:51 07/07/23 19:55 Temperature Pulse Rate 111 H 120 H 120 H Respiratory Rate 18 Blood Pressure Pulse Oximetry 96 Oxygen Delivery Room Air Oxygen Flow Rate 07/07/23 19:54 07/07/23 20:20 07/07/23 21:57 Temperature 37.0 C 36.3 C L 36.6 C Pulse Rate 120 H 124 H 108 H Respiratory Rate 18 20 18 Blood Pressure 104/61 106/55 L 115/50 L Pulse Oximetry 96 95 96 Oxygen Delivery Oxygen Flow Rate 07/07/23 20:00 07/07/23 23:39 07/07/23 20:17 Temperature 36.6 C Pulse Rate 110 H 93 112 H Respiratory Rate 20 Blood Pressure 116/66 Pulse Oximetry 95 Oxygen Delivery Oxygen Flow Rate 07/07/23 22:00 07/08/23 00:00 07/08/23 02:00 Temperature Pulse Rate 105 H 96 105 H Respiratory Rate Blood Pressure Pulse Oximetry Oxygen Delivery Oxygen Flow Rate 07/08/23 03:40 07/08/23 04:00 07/08/23 00:00 Temperature 36.7 C Pulse Rate 110 H Respiratory Rate 16 Blood Pressure 110/65 Pulse Oximetry 94 95 94 Oxygen Delivery Room Air Room Air Oxygen Flow Rate 07/07/23 20:30 07/08/23 04:00 07/08/23 06:00 Temperature Pulse Rate 113 H 118 H Respiratory Rate Blood Pressure Pulse Oximetry 95 Oxygen Delivery Room Air Oxygen Flow Rate 07/08/23 06:00 07/08/23 07:33 07/08/23 09:17 Temperature 35.9 C L Pulse Rate 116 H 102 H Respiratory Rate 18 Blood Pressure 100/66 98/47 L 144/97 H Pulse Oximetry 95 99 Oxygen Delivery Oxygen Flow Rate 07/08/23 08:00 07/08/23 08:00 07/08/23 10:00 Temperature Pulse Rate 119 H 120 H Respiratory Rate Blood Pressure Pulse Oximetry 99 Oxygen Delivery Room Air Oxygen Flow Rate 07/08/23 10:26 07/08/23 12:42 07/08/23 12:52 Temperature 36.6 C 36.8 C Pulse Rate 116 H 79 118 H Respiratory Rate 20 20 20 Blood Pressure 136/83 105/59 L 109/55 L Pulse Oximetry 93 98 95 Oxygen Delivery Room Air Simple Face Mask Simple Face Mask Oxygen Flow Rate 10 10 07/08/23 13:02 07/08/23 13:12 07/08/23 13:22 Temperature Pulse Rate 110 H 123 H 129 H Respiratory Rate 20 20 20 Blood Pressure 120/66 134/57 L 124/67 Pulse Oximetry 94 93 96 Oxygen Delivery Simple Face Mask Simple Face Mask Simple Face Mask Oxygen Flow Rate 8 6 4 07/08/23 13:30 07/08/23 14:03 07/08/23 14:00 Temperature 36.4 C L Pulse Rate 123 H 122 H 125 H Respiratory Rate 20 20 Blood Pressure 135/61 136/66 Pulse Oximetry 93 92 Oxygen Delivery Room Air Oxygen Flow Rate 07/08/23 14:00 07/08/23 16:00 07/08/23 16:00 Temperature Pulse Rate 115 H Respiratory Rate Blood Pressure Pulse Oximetry 95 92 Oxygen Delivery Nasal Cannula Nasal Cannula Oxygen Flow Rate 2 2 07/08/23 16:45 Temperature 36.9 C Pulse Rate 112 H Respiratory Rate 20 Blood Pressure 115/56 L Pulse Oximetr
--- NOTE | 2023-07-08 18:49 | P.PNIM_ITS ---
Progress Note: A&P Assessment and Plan (1) Bile leak, postoperative: Code(s): K91.89 - Other postprocedural complications and disorders of digestive system; K83.8 - Other specified diseases of biliary tract Status: Acute Assessment and Plan: 07/06/23: * HIDA scan positive for bile leak * GI consulted and plans on taking patient for stent placement on Saturday * General surgery following patient is postop lap cholecystectomy * Continue Zosyn and Flagyl * Continue pain control * -status post bile leak repair on 07/08/2023. Attempted paracentesis but there was negligible ascites. General surgery continues to follow and may take her for peritoneal washout. (2) S/P laparoscopic cholecystectomy: Code(s): Z90.49 - Acquired absence of other specified parts of digestive tract Status: Acute Assessment and Plan: 07/05/23: * Patient is postop day 3 from a lap cholecystectomy done by Dr. Melchor on an outpatient basis on 07/03/23 * Patient reporting increased abdominal pain over the last 2 days * Abdomen/pelvis CT shown a small amount amorphous fluid in the gallbladder fossa and tiny bubble free air as well as small amount of pelvic ascites are present which are likely normal postoperative changes however developing abscess or bile leak cannot be completely excluded. * General surgery consulted * White count elevated to 20.6, lactate 2.4 * Patient on 2L NC, with O2 saturation of 98% * Wean O2 to keep oxygen saturation greater than 92% 07/06/23: * General surgery following (3) Abdominal pain: Qualifiers: Abdominal location: generalized Qualified Code(s): R10.84 - Generalized abdominal pain Code(s): R10.9 - Unspecified abdominal pain Status: Acute Assessment and Plan: 07/05/23: * Continue pain control and nausea control * Patient is 3 days postop lap cholecystectomy by Dr. Melchor * General surgery following * Plan for HIDA scan * See above plan of care 07/06/23: * Continue pain control and nausea control * General surgery following * HIDA scan showing bile leak * GI consulted due to the bile leak and will take patient for stent on Saturday * White blood cell count down to 15.6 * Continue with Zosyn and Flagyl (4) Leukocytosis: Qualifiers: Leukocytosis type: unspecified Qualified Code(s): D72.829 - Elevated white blood cell count, unspecified Code(s): D72.829 - Elevated white blood cell count, unspecified Status: Acute Assessment and Plan: 07/05/23: * White blood cell count 20.6 * Continue to trend * Patient is afebrile, vital signs are stable, she is on room air * Lactate was 2.4 * Patient given a dose of Zosyn for empirical coverage 07/06/23: * White blood cell count down to 15.6 * On 07/07 white count is back up to 20. Continue antibiotics. Check procalcitonin in the morning (5) Fungal dermatitis: Code(s): B36.9 - Superficial mycosis, unspecified Status: Acute Assessment and Plan: 07/05/23: * Fungal noted under bilateral breasts, patient reports is itchy * Benadryl ordered q6h * Miconazole powder ordered BID 07/06/23: * Looking better today * Continue with current treatment plan (6) Lactic acidosis: Code(s): E87.20 - Acidosis, unspecified Status: Acute Assessment and Plan: 07/05/23: * Lactate 2.4 * Patient given 1L NS in the ER * Will recheck level 07/06/23: Lactate 1.4 * Resolved (7) Insulin dependent diabetes mellitus: Status: Chronic Assessment and Joann
--- NOTE | 2023-07-08 18:49 | PM.IMPN ---
Progress Note: A&P Assessment and Plan (1) Bile leak, postoperative: Code(s): K91.89 - Other postprocedural complications and disorders of digestive system; K83.8 - Other specified diseases of biliary tract Status: Acute Assessment and Plan: 07/06/23: HIDA scan positive for bile leak GI consulted and plans on taking patient for stent placement on Saturday General surgery following patient is postop lap cholecystectomy Continue Zosyn and Flagyl Continue pain control -status post bile leak repair on 07/08/2023. Attempted paracentesis but there was negligible ascites. General surgery continues to follow and may take her for peritoneal washout. (2) S/P laparoscopic cholecystectomy: Code(s): Z90.49 - Acquired absence of other specified parts of digestive tract Status: Acute Assessment and Plan: 07/05/23: Patient is postop day 3 from a lap cholecystectomy done by Dr. Melchor on an outpatient basis on 07/03/23 Patient reporting increased abdominal pain over the last 2 days Abdomen/pelvis CT shown a small amount amorphous fluid in the gallbladder fossa and tiny bubble free air as well as small amount of pelvic ascites are present which are likely normal postoperative changes however developing abscess or bile leak cannot be completely excluded. General surgery consulted White count elevated to 20.6, lactate 2.4 Patient on 2L NC, with O2 saturation of 98% Wean O2 to keep oxygen saturation greater than 92% 07/06/23: General surgery following (3) Abdominal pain: Qualifiers: Abdominal location: generalized Qualified Code(s): R10.84 - Generalized abdominal pain Code(s): R10.9 - Unspecified abdominal pain Status: Acute Assessment and Plan: 07/05/23: Continue pain control and nausea control Patient is 3 days postop lap cholecystectomy by Dr. Melchor General surgery following Plan for HIDA scan See above plan of care 07/06/23: Continue pain control and nausea control General surgery following HIDA scan showing bile leak GI consulted due to the bile leak and will take patient for stent on Saturday White blood cell count down to 15.6 Continue with Zosyn and Flagyl (4) Leukocytosis: Qualifiers: Leukocytosis type: unspecified Qualified Code(s): D72.829 - Elevated white blood cell count, unspecified Code(s): D72.829 - Elevated white blood cell count, unspecified Status: Acute Assessment and Plan: 07/05/23: White blood cell count 20.6 Continue to trend Patient is afebrile, vital signs are stable, she is on room air Lactate was 2.4 Patient given a dose of Zosyn for empirical coverage 07/06/23: White blood cell count down to 15.6 On 07/07 white count is back up to 20. Continue antibiotics. Check procalcitonin in the morning (5) Fungal dermatitis: Code(s): B36.9 - Superficial mycosis, unspecified Status: Acute Assessment and Plan: 07/05/23: Fungal noted under bilateral breasts, patient reports is itchy Benadryl ordered q6h Miconazole powder ordered BID 07/06/23: Looking better today Continue with current treatment plan (6) Lactic acidosis: Code(s): E87.20 - Acidosis, unspecified Status: Acute Assessment and Plan: 07/05/23: Lactate 2.4 Patient given 1L NS in the ER Will recheck level 07/06/23: Lactate 1.4 Resolved (7) Insulin dependent diabetes mellitus: Status: Chronic Assessment and Plan: 07/05/23: Blood sugars ranging 111-123 Last hemoglobin A1c was 8.6 on 03/12/2022 Will recheck hemoglobin A1c in the morning Accu-Cheks q6h NPO status for now Low-dose sliding scale insulin ordered Will hold Tresiba, and start Lantus 10 units tonight Hypoglycemic protocol in place 07/06/23: Blood sugars ranging 88-108 Continue with current treatment plan (8) Depression: Qualifiers: Depression Type: major depressive disorder Major depre
[2023-07-08 19:22] LABS: Glucose Point of Care 208 mg/dl (65-105)
[2023-07-08] MEDS: traZODone HCL 50 MG TABLET 100 MG PO (20:22)
[2023-07-08] MEDS: METOPROLOL TARTRATE 25 MG TABLET PO (20:22)
[2023-07-08] MEDS: ESCITALOPRAM OXALATE 10 MG TABLET 20 MG PO (20:22)
[2023-07-08] MEDS: SIMVASTATIN 20 MG TABLET 40 MG PO (20:23)
--- NOTE | 2023-07-08 21:42 | ECG_ITS ---
SEE SCANNED COPY FOR CONFIRMED REPORT MTDD
[2023-07-08] MEDS: INSULIN ASPART (*BKC) 100 UNITS/ML SUB-Q (23:24)
[2023-07-08 23:25] LABS: Glucose Point of Care 223 mg/dl (65-105)
[2023-07-09] VITALS (35 sets, daily range): BP systolic 101–125; BP diastolic 48–60; PULSE 66–88; RESP 12–20; TEMP 36.1–36.9; O2SAT 87–100
--- NOTE | 2023-07-09 | ECHO_ITS ---
Patient Info Name: Alicia Del oTro Age: 73 years : 1950 Gender: Female Ht: 65 in Wt: 184 lbs BSA: 1.98 m2 HR: 77 bpm BP: 108 / 56 mmHg Technical Quality: Fair Exam Date: 07/09/2023 8:16 AM Exam Location: Echo Lab Patient Status: Inpatient Admit Date: 07/06/2023 Staff Ordering Physician: Gallo Garza DO Negative Turner: Mayi Reagan RDCS Attending Provider: Rosina Vanessa MD Referring Physician: Greg BINGHAM; Exam Type: CA echo doppler color flow Study Info Indications - Afib Complete two-dimensional, color flow and Doppler transthoracic echocardiogram is performed with contrast to opacify the left ventricle and to improve the deliniation of the left ventricle endocardial borders. Contrast/Agitated Saline Contrast/Ag. Saline: Definity Amount: 2.00 ml Administered By: Mayi Reagan RDCS Existing IV Access: Yes IV Access Condition: patent with no signs of infiltration Summary 1. Definity contrast administered improved wall motion interpretation. 2. Left ventricular chamber dimension is normal. 3. Left ventricular systolic function is normal, estimated at 60-65%. 4. The left ventricular diastolic function is abnormal. 5. E/e' 14 is mildly elevated. 6. Left atrial chamber dimension is mildly enlarged. 7. There is mild mitral valve regurgitation. 8. No pulmonary hypertension, estimated pulmonary arterial systolic pressure is 26 mmHg. Left Ventricle E/e' 14 is mildly elevated. Definity contrast administered improved wall motion interpretation. Left ventricular chamber dimension is normal. Left ventricular systolic function is normal, estimated at 60-65%. The left ventricular diastolic function is abnormal. Right Ventricle Right ventricular systolic function is normal and with normal TAPSE 2.0 cm. Right ventricular chamber dimension is normal. Left Atria Left atrial chamber dimension is mildly enlarged. Right Atria Right atrial chamber dimension is normal. Aortic Valve The aortic valve is trileaflet. There is no aortic valve stenosis. There is no aortic valve regurgitation. Pulmonic Valve There is no pulmonic regurgitation. Mitral Valve There is no mitral valve stenosis. There is mild mitral valve regurgitation. Tricuspid Valve There is no tricuspid valve regurgitation. No pulmonary hypertension, estimated pulmonary arterial systolic pressure is 26 mmHg. Pericardium/Pleural There is no pericardial effusion. Inferior Vena Cava Normal inferior vena cava with >50% collapse upon inspiration consistent with normal right atrial pressure, 5 mmHg. Aorta The aortic root size at the sinus of Valsalva is normal. Left Ventricular Outflow Tract Name Value Normal LVOT 2D LVOT Diameter 2.0 cm LVOT Doppler LVOT Peak Gradient 3 mmHg LVOT Mean Gradient 2 mmHg LVOT VTI 16 cm LVOT VTI/AV VTI Ratio 1.0 LVOT Stroke Volume 52 ml LVOT CO 3.4 l/min LVOT CI 1.7 l/min/m2 Pulmonic Valve
--- NOTE | 2023-07-09 02:28 | ECG_ITS ---
SEE SCANNED COPY FOR CONFIRMED REPORT MTDD
[2023-07-09] MEDS: metroNIDAZOLE 500 MG/ISO 100ML 500 MG/100 ML BAG 100 MG IVPB ×3 (03:07→20:47)
[2023-07-09 04:54] LABS: Basophils Absolute Auto 0.1 K/mm3 (0.0-0.1); Basophils Percent Auto 0.3 % (0.2-1.2); Eosinophils Absolute Auto 0.7 K/mm3 (0-0.3); Eosinophils Percent Auto 3.4 % (0-4.4); Hematocrit 31.5 % (37.0-47.0); Hemoglobin 9.8 g/dL (12.0-15.0); Immature Granulocyte Absolute 0.13 K/mm3 (0.00-0.031); Immature Granulocyte Percent A 0.7 % (0-0.5); Lymphocytes Absolute Auto 1.19 K/mm3 (0.9-3.2); Lymphocytes Percent Auto 6.3 % (18.3-44.2); Mean Corpuscular HGB Conc 31.1 g/dl (32-36); Mean Corpuscular Hemoglobin 27.4 pg (26-34); Monocytes Absolute Auto 1.7 K/mm3 (0.1-0.6); Monocytes Percent Auto 8.9 % (2.6-8.5); Neutrophils Absolute Auto 15.3 K/mm3 (1.3-6.7); Neutrophils Percent Auto 80.4 % (45.5-73.1); Platelet Count Result 394 k/mm3 (150-375); Red Blood Count 3.58 M/mm3 (4.2-5.4)
[2023-07-09] MEDS: HYDROmorphone HCL INJ (*CRX) 1 MG/ML SYR 0.5 MG IV PUSH ×3 (05:09→22:13)
[2023-07-09 05:10] LABS: Alanine Aminotransferase 15 U/L (6-35); Albumin Level 2.8 g/dL (3.5-5.1); Alkaline Phosphatase 129 U/L (38-126); Anion Gap 3 mmol/L (4-12); Aspartate Amino Transferase 16 U/L (14-36); Bilirubin,Total 0.7 mg/dL (0.2-1.3); Blood Urea Nitrogen 16 mg/dL (7-17); Carbon Dioxide 26 mmol/L (22-30); Chloride 108 mmol/L (98-107); Estimated CRCL calculation 71 ml/min; Estimated Glomerular Filt Rate > 60; Glucose 167 mg/dL (65-110); Potassium 3.1 mmol/L (3.4-5.0); Sodium 137 mmol/L (137-145)
[2023-07-09] MEDS: PIPERACILLN/TAZ 3.375GM/NS50ML 3.375 GM/50 ML BAG IVPB ×3 (05:10→17:34)
[2023-07-09] MEDS: DEXTROSE 5%/LACTATED RINGERS 1,000 ML 100 ML IV CONT ×2 (05:12→21:15)
[2023-07-09 06:07] LABS: Procalcitonin 1.5 ng/mL
--- NOTE | 2023-07-09 07:50 | PM.IMPN ---
Progress Note: A&P Assessment and Plan (1) Acute encephalopathy: Code(s): G93.40 - Encephalopathy, unspecified Status: Acute (2) PAF (paroxysmal atrial fibrillation): Code(s): I48.0 - Paroxysmal atrial fibrillation Status: Acute (3) Bile leak, postoperative: Code(s): K91.89 - Other postprocedural complications and disorders of digestive system; K83.8 - Other specified diseases of biliary tract Status: Acute (4) Anxiety: Code(s): F41.9 - Anxiety disorder, unspecified Status: Chronic (5) S/P laparoscopic cholecystectomy: Code(s): Z90.49 - Acquired absence of other specified parts of digestive tract Status: Acute (6) Lactic acidosis: Code(s): E87.20 - Acidosis, unspecified Status: Acute (7) Insulin dependent diabetes mellitus: Status: Chronic Plan 73-year-old female with paroxysmal atrial fibrillation, asthma, CAD (mild cath 06/2018 with 20% distal LAD disease), 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 The patient had an outpatient laparoscopic cholecystectomy on 07/02. She was found to have a bile leak and admitted on 07/05/2023. Bile leak -due to cholecystectomy. Hepatobiliary scan on 07/04 on admission demonstrating bowel leak -ERCP performed on 07/07 with collection of washings, sphincterotomy/papillotomy, endoscopic stent into bile duct. -ERCP again in 2 months to remove stent reassess Peritonitis -status post bile stent, patient taken down for paracentesis but negligible ascites was observed. -patient still has significant pain, 6/10 on 07/08 although improved. Possible peritoneal washout with General surgery. -continue Zosyn and Flagyl. Status post cholecystectomy -management per General surgery. Her port site incisions look good AFib with RVR -likely due to her acute stress hypovolemia. Uncontrolled with p.r.n. medications so Cardiology was consulted. -cardiology has started sotalol 80 mg p.o. b.i.d.. Continue EKG checks per Cardiology. -she takes metoprolol 25 mg p.o. b.i.d. at home. Currently holding. -she converted to normal sinus rhythm at 2:30 a.m. and 07/08. However, the QTC is 497. Pending direction from Cardiology. -she takes apixaban at home. Currently holding. Acute encephalopathy -the night of 07/06 she received Dilaudid Benadryl and Ativan and began to have visual hallucinations seeing [place] characters and people in the room who were not there. Counseled the patient on the dangers of polypharmacy of sedatives. -discussion held with patient and nurses to avoid over-sedation. On 07/08 she is no longer hallucinating as her pain medications have been used judiciously. -the encephalopathy is resolved. CT head negative for any acute intracranial findings. However, considering the leukocytosis and possible although less likely intra-abdominal infection I contacted Dr. Dr. Watson neurosurgery at [facility] and she provided very thoughtful recommendations. The patient has a NON DESTRUCTIVE TESTING TECHNICIAN shunt with a programmable valve so in order for us to obtain an MRI we will need a vaccine customer representative/neurosurgery to reset her valve (our Neurosurgeon's do not have the information available to do this). Therefore, if the patient becomes obviously encephalopathic and CSF infection is a concern then we will perform an LP and arrange transfer to [facility] for further neurosurgery management including possible need for externalization of the NON DESTRUCTIVE TESTING TECHNICIAN shunt. Pt/daughter agree we should not move forward with
[2023-07-09] MEDS: PERFLUTREN LIPID MICROSPHERES 1.5 ML VIAL DILUTED TO 10 ML TOTAL VOLUME IV PUSH (08:49)
[2023-07-09] MEDS: lisinopriL 20 MG TABLET 40 MG PO (09:02)
[2023-07-09] MEDS: PANTOPRAZOLE SODIUM IV 40 MG VIAL IV PUSH (09:02)
[2023-07-09] MEDS: SOTALOL HCL 80 MG TABLET PO (09:02)
[2023-07-09] MEDS: busPIRone HCL 5 MG TABLET PO ×2 (09:02→20:46)
[2023-07-09] MEDS: POTASSIUM CHLORIDE INJ 40 MEQ in SODIUM CHLORIDE 0.9% IV 500 ML 130 MEQ IVPB (09:02)
[2023-07-09] MEDS: TOLNAFTATE 1% POWDER 45 GM BTL 1 APPLIC TOPICAL ×2 (09:03→20:46)
[2023-07-09] MEDS: diphenhydrAMINE HCl INJ 50 MG/ML VIAL 25 MG IV PUSH ×2 (09:05→22:11)
[2023-07-09] MEDS: KETOROLAC 15 MG/ML VIAL (*BKC) IV PUSH (11:36)
[2023-07-09 11:49] LABS: Glucose Point of Care 158 mg/dl (65-105)
--- NOTE | 2023-07-09 11:56 | ECG_ITS ---
SEE SCANNED COPY FOR CONFIRMED REPORT MTDD
--- NOTE | 2023-07-09 12:26 | IVDEFINITY ---
Prior to administration of IV Definity the patient was educated on the risks and benefits of the imaging enhancing agent including potential adverse side effects. The patient verbalized understanding. Allergies were verified. No exclusion criteria were identified and at least one of the following inclusion criteria were met: 1) physician request, 2) patient technically difficult to image (per the [place] [employer] Echocardi[employer] guidelines of two or more segments not discernable within the apical view), or 3) questionable left ventricular function. ?
--- NOTE | 2023-07-09 13:50 | PC.NURSE ---
To OR per [ bed], IV [saline locked ]. Family at bedside
--- NOTE | 2023-07-09 13:56 | WPDHPUPDATE1 ---
History and Physical Update Update Date/Time: 07/09/23 13:56 History and Physical has been reviewed, including an updated exam of the patient. There are NO changes in the patient's condition. Risks, benefits, and alternatives have been discussed and questions answered. Patient agrees to proceed with procedure.
--- NOTE | 2023-07-09 13:57 | WPDHPUPDATE1 ---
History and Physical Update Update Date/Time: 07/09/23 13:57 History and Physical has been reviewed, including an updated exam of the patient. There are NO changes in the patient's condition. Risks, benefits, and alternatives have been discussed and questions answered. Patient agrees to proceed with procedure. Pt still having abd pain. She has bile peritonitis from bile ascites from bile leak after lap rossi. ERCP with stent done yesterday. Plan on performing lap abd washout today to evacuate bile ascites fluid.
--- NOTE | 2023-07-09 15:14 | WPDANESEPPF ---
Anes - Initial Pre Proc Eval Procedure: Operation Date: 07/08/23 11:30 Proposed Procedures p Endoscopic Retro Cholangiopancreatogram - Collins Osborn MD Operation Date: 07/09/23 14:30 Proposed Procedures p Laparoscopic Abdominal Washout - Ron Keller MD Date/Time: 07/09/23 15:14 Surgeon: Rosina Vanessa MD Pre Op Diagnosis: Post Cholecystectomy Intra Abdominal Infection Gabriela Patient Data Age: 73 Gender: F Height: 1.65 m Weight: 90.6 kg Last Vital Signs Temp 98.5 F 07/09/23 14:00 Pulse 68 07/09/23 14:00 Resp 20 07/09/23 14:00 BP 115/57 L 07/09/23 14:00 Pulse Ox 95 07/09/23 14:00 O2 Del Method Room Air 07/09/23 14:00 O2 Flow Rate 2 07/09/23 09:35 FiO2 28 07/06/23 21:00 Allergies Allergy/AdvReac Type Severity Reaction Status Date / Time adhesive tape Allergy Intermediate Blister Verified 07/09/23 14:09 hydromorphone [From Dilaudid] Allergy Intermediate Itching Verified 07/09/23 14:09 morphine Allergy Intermediate Itching Verified 07/09/23 14:09 Home Medications Medication Instructions Recorded Confirmed Type apixaban 5 mg tablet (Eliquis) 5 mg PO BID 01/21/20 07/05/23 History metoprolol tartrate 25 mg tablet 25 mg PO BID 01/21/20 07/05/23 History blood-glucose meter #1 ea 05/04/20 07/05/23 Rx blood sugar diagnostic (OneTouch #200 strips 12/11/21 07/05/23 Rx Ultra Test strips) pen needle, diabetic 31 gauge x #360 ea 09/12/22 07/05/23 Rx 5/16 (BD Ultra-Fine Short Pen Needle) gabapentin 300 mg capsule 300 mg PO BID 90 days #180 caps 12/13/22 07/05/23 Rx linagliptin 5 mg tablet (Tradjenta) 5 mg PO QAM 90 days #90 tabs 12/13/22 07/05/23 Rx lisinopril 40 mg tablet 40 mg PO DAILY #90 tabs 02/07/23 07/05/23 Rx trazodone 100 mg tablet 100 mg PO QHS #90 tabs 02/07/23 07/05/23 Rx cetirizine 10 mg capsule (Zyrtec) 10 mg PO DAILY 04/15/23 07/05/23 History empagliflozin 25 mg tablet 25 mg PO DAILY 04/15/23 07/05/23 History (Jardiance) insulin aspart U-100 100 unit/mL 5 unit subcut AC 04/15/23 07/05/23 History (3 mL) subcutaneous pen (Novolog FlexPen U-100 Insulin aspart) insulin degludec 200 unit/mL (3 26 unit subcut QPM 04/15/23 07/05/23 History mL) subcutaneous pen (Tresiba FlexTouch U-200 insulin) vibegron 75 mg tablet (Gemtesa) 75 mg PO DAILY 04/15/23 07/05/23 History escitalopram oxalate 20 mg tablet 20 mg PO HS 04/27/23 07/05/23 History metformin 500 mg tablet 1,000 mg PO BID 04/27/23 07/05/23 History simvastatin 40 mg tablet 40 mg PO HS 04/27/23 07/05/23 History buspirone 5 mg tablet 5 mg PO BID #180 tabs 06/10/23 07/05/23 Rx tramadol 25 mg tablet 25 mg PO Q4H PRN pain #30 tabs 06/29/23 07/05/23 Rx ibuprofen 600 mg tablet 600 mg PO Q6H PRN pain #14 tabs 07/03/23 07/05/23 Rx oxycodone-acetaminophen 5 mg-325 1 - 2 tablet PO Q6H PRN pain #10 07/05/23 07/05/23 Rx mg tablet (Percocet) tabs Laboratory Tests 07/08/23 07/08/23 07/08/23 15:15 16:42 19:19 WBC RBC Hgb Hct MCV MCH MCHC RDW Plt Count MPV Immature Gran % (Auto) Neut % (Auto) Lymph % (Auto) [place] % (Auto) Eos % (Auto) Baso % (Auto) Lymph # (Auto) [place] # (Auto) Eos # (Auto) Baso # (Auto) Abs Immat Gran (auto) Absolute Neuts (auto) Absolute Nucleated RBC Nucleated RBC % Sodium Potassium Chloride Carbon Dioxide Anion Gap BUN Creatinine Estim Creat Clear Calc Estimated GFR Glucose POC Capillary Glucose 151 H mg/dl 208 H mg/dl (65-105) (65-105) Calcium Total Bilirubin AST ALT Alkaline Phosphatase
--- NOTE | 2023-07-09 15:25 | PC.NURSE ---
Addendum entered by Bonnie Carbajal RN 07/09/23 15:31: Dr. Garza stated That's to be expected with her having a BBB, but let's go ahead and decrease her Sotalol dose to 40mg PO q12h starting this evening. Original Note: Notified Dr. Garza for Dr. Vanessa regarding pt's elongating QTc. New order to decrease sotalol dose to 40mg PO Q12H starting this evening.
[2023-07-09] MEDS: LIDO 1%/EPINEPHRINE/PF 1:200,000 30 ML VIAL XX (15:52)
[2023-07-09] MEDS: BUPivacaine HCL 0.5% 10 ML AMP 30 ML INFILTRATE (15:53)
--- NOTE | 2023-07-09 16:19 | PM.OP ---
Procedure Note - Brief Procedure Note - Brief Date of procedure: 07/09/23 Post laparoscopic cholecystectomy bile leak, bile peritonitis Post-op diagnosis: Same Surgeon: Ron Keller MD Anesthesia: GETA Findings: [id number] of bile ascites in the abdomen. SCIENTIFIC SOFTWARE ENGINEER shunt in place without kinking of the shunt. Bile ascites aspirated and abdomen and pelvis irrigated with 4L of sterile saline solution which was then aspirated. Implants: None Estimated blood loss (mL): 5 Urine output (mL): 300 Drains: No Packing: No Pathology: None sent Complications: No immediate complications Condition: Stable Disposition: Floor
[2023-07-09] MEDS: LACTATED RINGERS 1,000 ML 30 ML IV CONT ×2 (16:30→16:49)
[2023-07-09 16:45] LABS: Glucose Point of Care 146 mg/dl (65-105)
[2023-07-09] MEDS: ONDANSETRON INJ 4 MG/2 ML VIAL IV PUSH (16:48)
[2023-07-09] MEDS: fentaNYL CITRATE INJ (*CRX) 100 MCG/2 ML VIAL 25 MCG IV PUSH ×3 (16:56→17:17)
--- NOTE | 2023-07-09 17:27 | PC.NURSE ---
Returned from OR per [bed]. Report received from [PAULINE Sanchez @ [phone] ].
--- NOTE | 2023-07-09 18:59 | WPDNEUROSGCN ---
Assessment and Plan Assessment and plan (1) Status post ventriculoperitoneal shunt: Code(s): Z98.2 - Presence of cerebrospinal fluid drainage device Status: Acute Assessment and Plan: Alicia is a 73-year-old female with a ventricular peritoneal shunt in place times 10 years. It is questionable whether not she has shunt dependent at this point. There is no need to manipulate the shunt at this point but she should be observant about potential signs of infection including headache, nausea, vomiting, fever, chills or any neurologic issues including mental status changes. IA informed her that brain surgery could not be performed at this hospital and that she developed any symptoms like the ones I mentioned she should go to a hospital it does perform brain surgeries such as [facility] or [facility] or [facility]. Consult date: 07/09/23 Reason for consult: Ventricular peritoneal shunt in place, bile peritonitis HPI: Alicia Del Toro is a 73 year old female who underwent a laparoscopic cholecystectomy was complicated by a bile leak. She underwent redo laparoscopy today to repair the leak. She has a bile peritonitis. She has a ventriculoperitoneal shunt in place incidentally. 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 She is not having a headache at this point in. She has no signs of infection. The procedure and the leak or felt to have been sterile. She is not complaining of any neurologic issues in her face, arms or legs. She is recovering from the laparoscopy today and has not been ambulatory yet because of that procedure in the discomfort related to it. Review of Systems Review of Systems: Patient denies shortness of breath, cough, fever, chills, nausea, vomiting, weight loss, weight gain, chest pain, dysuria. She has belly pain. She denies headache. Her review of systems is otherwise negative on 12 systems except as noted elsewhere. [facility] Past Medical History Medical History A-fib Allergies Anxiety Arthritis Asthma Back injury L5 SI injection Back pain Brain bleed (2) CAD (coronary artery disease) Colon polyps Costochondritis Depression Diabetic neuropathy DVT (deep venous thrombosis) (~1979) LLE Generalized pruritus Hyperlipidemia Hypertension IBS (irritable bowel syndrome) Insomnia Leukocytosis Obesity Osteopenia Postmenopausal Thyroid disorder TIA (transient ischemic attack) Trigeminal neuropathy Type 2 diabetes mellitus Urinary incontinence Visceral hypersensitivity syndrome Surgical History Surgical History H/O foot surgery Left and right H/O knee surgery Left H/O: hysterectomy History of back surgery History of surgery of head placement of shunt Family History Family History Mother Muscular dystrophy Father Carcinoma of colon Grandparent Acute myocardial infarction Ruptured appendix Sibling Acute myocardial infarction Social History Social History Smoking packs per day: 0.75 Smoking cigarettes per day: 15.0 Years smoked: 5 Smoking pack-years: 3.75 Smoking status: Former smoker Second hand tobacco smoke exposure: Yes Additional smoking assessment comments: DENIES ANY FORM OF TOBACCO USE Alcohol intake: never Substance use: never Do You Feel Safe in your Home?: Yes Lack of Transportation: No Lack of Food: Never True Current Housing: I Have Housing Concerned About Future Housing: No Difficulty Paying Gas/Electric Bills: No Difficulty Paying for Meds: No Currently Unemployed: No Education: High School Diploma/GED Difficulty w/ Childcare or Family Care
[2023-07-09] MEDS: SIMVASTATIN 20 MG TABLET 40 MG PO (20:45)
[2023-07-09] MEDS: ESCITALOPRAM OXALATE 10 MG TABLET 20 MG PO (20:45)
[2023-07-09] MEDS: traZODone HCL 50 MG TABLET 100 MG PO (20:45)
[2023-07-09] MEDS: SOTALOL HCL 40 MG TABLET PO (20:46)
[2023-07-09] MEDS: IBUPROFEN IV 800 MG/200 ML 800 MG/200 ML BAG 400 MG IVPB (20:47)
[2023-07-09] MEDS: GABAPENTIN 300 MG CAPSULE PO (22:13)
--- NOTE | 2023-07-09 22:25 | ECG_ITS ---
SEE SCANNED COPY FOR CONFIRMED REPORT MTDD
[2023-07-09 23:21] LABS: Glucose Point of Care 194 mg/dl (65-105)
[2023-07-10] VITALS (18 sets, daily range): BP systolic 100–123; BP diastolic 49–58; PULSE 64–85; RESP 12–20; TEMP 36.2–36.6; O2SAT 92–97
[2023-07-10] MEDS: PIPERACILLN/TAZ 3.375GM/NS50ML 3.375 GM/50 ML BAG IVPB ×4 (00:05→17:17)
[2023-07-10] MEDS: metroNIDAZOLE 500 MG/ISO 100ML 500 MG/100 ML BAG 100 MG IVPB ×3 (03:38→20:19)
[2023-07-10] MEDS: diphenhydrAMINE HCl INJ 50 MG/ML VIAL 25 MG IV PUSH ×3 (03:38→20:16)
[2023-07-10] MEDS: HYDROmorphone HCL INJ (*CRX) 1 MG/ML SYR 0.5 MG IV PUSH ×3 (03:38→20:16)
[2023-07-10 04:35] LABS: Basophils Percent Auto 0.2 % (0.2-1.2); Hematocrit 33.2 % (37.0-47.0); Hemoglobin 9.8 g/dL (12.0-15.0); Immature Granulocyte Absolute 0.09 K/mm3 (0.00-0.031); Immature Granulocyte Percent A 0.6 % (0-0.5); Lymphocytes Absolute Auto 0.68 K/mm3 (0.9-3.2); Lymphocytes Percent Auto 4.2 % (18.3-44.2); Mean Corpuscular HGB Conc 29.5 g/dl (32-36); Mean Corpuscular Hemoglobin 27.1 pg (26-34); Mean Corpuscular Volume 91.7 fl (80-100); Mean Platelet Volume 10.3 fl (7.4-10.4); Monocytes Absolute Auto 0.6 K/mm3 (0.1-0.6); Monocytes Percent Auto 3.5 % (2.6-8.5); Neutrophils Absolute Auto 14.8 K/mm3 (1.3-6.7); Neutrophils Percent Auto 91.5 % (45.5-73.1); Platelet Count Result 405 k/mm3 (150-375); Red Blood Count 3.62 M/mm3 (4.2-5.4); Red Cell Distribution Width 15.4 % (11.5-14.5); White Blood Count 16.2 K/mm3 (4.5-10.0)
[2023-07-10 04:57] LABS: Alanine Aminotransferase 14 U/L (6-35); Albumin Level 3.1 g/dL (3.5-5.1); Alkaline Phosphatase 122 U/L (38-126); Anion Gap 11 mmol/L (4-12); Aspartate Amino Transferase 17 U/L (14-36); Bilirubin,Total 0.7 mg/dL (0.2-1.3); Blood Urea Nitrogen 20 mg/dL (7-17); Carbon Dioxide 18 mmol/L (22-30); Chloride 111 mmol/L (98-107); Estimated CRCL calculation 64 ml/min; Estimated Glomerular Filt Rate > 60; Glucose 213 mg/dL (65-110); Magnesium 1.8 mg/dL (1.6-2.3); Phosphorus 4.1 mg/dL (2.5-4.5); Potassium 3.7 mmol/L (3.4-5.0); Sodium 140 mmol/L (137-145)
[2023-07-10 05:42] LABS: Anisocytosis 1+; Crenated RBC 1+; Platelet Estimate Slightly Increased (Adequate); Schistocytes None Seen
[2023-07-10] MEDS: INSULIN ASPART (*BKC) 100 UNITS/ML SUB-Q ×3 (05:44→20:36)
--- NOTE | 2023-07-10 07:50 | PM.PNCARD ---
Progress Note: A&P Assessment and Plan (1) PAF (paroxysmal atrial fibrillation): Code(s): I48.0 - Paroxysmal atrial fibrillation Status: Acute Assessment and Plan: [id number] 4. Normally on Eliquis which is on hold due to anticipation of GI procedure, ERCP. Was in sinus rhythm and has been over a year since in atrial fib, just on Metoprolol. Her regular computer hardware engineer is Dr. Tristan with [facility]. Due to recurrence of atrial fib, she is now on low dose Sotalol 40 mg PO every 12 hours due to prolonged QT interval. Check EKG 1-2 hours post dose x 5 doses. (2) Bile leak, postoperative: Code(s): K91.89 - Other postprocedural complications and disorders of digestive system; K83.8 - Other specified diseases of biliary tract Status: Acute Assessment and Plan: Followed by GI and general surgery. (3) Hyperlipidemia: Qualifiers: Hyperlipidemia type: unspecified Qualified Code(s): E78.5 - Hyperlipidemia, unspecified Code(s): E78.5 - Hyperlipidemia, unspecified Status: Chronic Assessment and Plan: On Simvastatin. (4) Hypertension: Qualifiers: Hypertension type: essential hypertension Qualified Code(s): I10 - Essential (primary) hypertension Code(s): I10 - Essential (primary) hypertension Status: Chronic Assessment and Plan: Stable. Subjective Date/time seen: 07/10/23 07:50 Interval history: Denies chest pain or sob. She has minimal abdominal pain now. Exam Const: General: cooperative and in distress Orientation/consciousness: oriented to person, oriented to place and oriented to time Resp: Auscultation: clear to auscultation bilaterally, no crackles, no rales, no rhonchi and no wheezes Cardio: Rate: regular rate Rhythm: regular rhythm Heart sounds: no murmurs Peripheral pulses: dorsalis pedis present Neuro: General: oriented to person, oriented to place and oriented to time Extrem: Right lower extremity: no edema Left lower extremity: no edema Objective Data Vital Signs Vital Signs: Vital Signs - 24 hr 07/09/23 09:02 07/09/23 08:00 07/09/23 08:00 Temperature Pulse Rate 69 70 Respiratory Rate Blood Pressure Pulse Oximetry 100 Oxygen Delivery Nasal Cannula Oxygen Flow Rate 1 07/09/23 09:35 07/09/23 10:00 07/09/23 10:52 Temperature Pulse Rate 71 Respiratory Rate Blood Pressure Pulse Oximetry 96 100 Oxygen Delivery Nasal Cannula Room Air Oxygen Flow Rate 2 07/09/23 11:58 07/09/23 12:00 07/09/23 12:00 Temperature 97.8 F Pulse Rate 70 71 Respiratory Rate 16 Blood Pressure 120/57 L Pulse Oximetry 95 95 Oxygen Delivery Room Air Oxygen Flow Rate 07/09/23 14:00 07/09/23 16:30 07/09/23 16:45 Temperature 98.5 F 97.3 F L Pulse Rate 68 72 67 Respiratory Rate 20 12 12 Blood Pressure 115/57 L 107/58 L 102/51 L Pulse Oximetry 95 99 100 Oxygen Delivery Room Air Simple Face Mask Simple Face Mask Oxygen Flow Rate 8 8 07/09/23 17:00 07/09/23 17:40 07/09/23 17:30 Temperature 98.4 F Pulse Rate 70 68 Respiratory Rate 18 16 Blood Pressure 101/60 109/57 L Pulse Oximetry 100 93 93 Oxygen Delivery Simple Face Mask Room Air Oxygen Flow Rate 8 07/09/23 18:00 07/09/23 17:58 07/09/23 18:13 Temperature 97.5 F L 97.4 F L Pulse Rate 68 68 69 Respiratory Rate 12 14 Blood Pressure 104/49 L 113/48 L Pulse Oximetry 93 91 Oxygen Delivery Oxygen Flow Rate 07/09/23 18:28 07/09/23 18:43 07/09/23 18:28 Temperature 97.7 F 97.4 F L Pulse Rate 66 66 Respiratory Rate 12 16 Blood Pressure 107/50 L 105/52 L Pulse Oximetry 94 98 87 L Oxygen Delivery Nasal Cannula Oxygen Flow Rate 2 07/09/23 19:13 07/09/23 19:43 07/09/23 20:13 Temperature 97.7 F 97.5 F L 97.3 F L Pulse Rate 66 69 69 Respiratory Rate 12 12 20 Blood Pressure 116/57 L 125/59 L 120/60 Pulse Oximetry 99 100 98 Oxygen Delivery Oxygen Flow Rate
--- NOTE | 2023-07-10 08:47 | WPDANESPN ---
Anes - Prog Note Post-Op Date/Time: 07/10/23 08:47 Vital Signs: Last Vital Signs Temp 36.6 C 07/10/23 03:37 Pulse 66 07/10/23 06:00 Resp 16 07/10/23 03:37 BP 121/56 L 07/10/23 03:37 Pulse Ox 97 07/10/23 08:39 O2 Del Method Room Air 07/10/23 08:39 O2 Flow Rate 2 07/09/23 20:51 FiO2 28 07/06/23 21:00 Pain Score (VAS): 2 - gas pain, only hurts when she lays on her left side I/O: Intake & Output 07/09/23 07/10/23 07/10/23 23:59 07:59 15:59 Intake Total 1286.7 950 Output Total 300 500 Balance 986.7 450 Laboratory Tests 07/10/23 04:10 07/10/23 04:10 07/09/23 07/09/23 07/09/23 11:17 16:42 23:17 WBC RBC Hgb Hct MCV MCH MCHC RDW Plt Count MPV Immature Gran % (Auto) Neut % (Auto) Lymph % (Auto) [place] % (Auto) Eos % (Auto) Baso % (Auto) Lymph # (Auto) [place] # (Auto) Eos # (Auto) Baso # (Auto) Abs Immat Gran (auto) Absolute Neuts (auto) Absolute Nucleated RBC Nucleated RBC % Platelet Estimate Anisocytosis Crenated Cell Schistocytes Sodium Potassium Chloride Carbon Dioxide Anion Gap BUN Creatinine Estim Creat Clear Calc Estimated GFR Glucose POC Capillary Glucose 158 H 146 H 194 H Calcium Phosphorus Magnesium Total Bilirubin Indirect Bilirubin AST ALT Alkaline Phosphatase Total Protein Albumin Procalcitonin 07/10/23 04:10 WBC 16.2 H RBC 3.62 L Hgb 9.8 L Hct 33.2 L MCV 91.7 MCH 27.1 MCHC 29.5 L RDW 15.4 H Plt Count 405 H MPV 10.3 Immature Gran % (Auto) 0.6 H Neut % (Auto) 91.5 H Lymph % (Auto) 4.2 L [place] % (Auto) 3.5 Eos % (Auto) 0.0 Baso % (Auto) 0.2 Lymph # (Auto) 0.68 L [place] # (Auto) 0.6 Eos # (Auto) 0.0 Baso # (Auto) 0.0 Abs Immat Gran (auto) 0.09 H Absolute Neuts (auto) 14.8 H Absolute Nucleated RBC 0.000 Nucleated RBC % 0.0 Platelet Estimate Slightly increased Anisocytosis 1+ Crenated Cell 1+ Schistocytes None seen Sodium 140 Potassium 3.7 Chloride 111 H Carbon Dioxide 18 L Anion Gap 11 BUN 20 H Creatinine 0.80 Estim Creat Clear Calc 64 Estimated GFR > 60 Glucose 213 H POC Capillary Glucose Calcium 8.0 L Phosphorus 4.1 Magnesium 1.8 Total Bilirubin 0.7 Indirect Bilirubin 0.0 AST 17 ALT 14 Alkaline Phosphatase 122 Total Protein 6.0 L Albumin 3.1 L Procalcitonin 1.0 Microbiology 07/05/23 19:19 Blood Blood Culture - Preliminary Post-procedural complaints: none Patient Feedback: Patient satisfied with anesthetic care.
[2023-07-10] MEDS: DEXTROSE 5%/LACTATED RINGERS 1,000 ML 100 ML IV CONT ×2 (08:58→20:19)
[2023-07-10] MEDS: DOCUSATE SODIUM 100 MG CAPSULE PO ×2 (08:59→17:11)
[2023-07-10] MEDS: GABAPENTIN 300 MG CAPSULE PO ×2 (08:59→17:11)
[2023-07-10] MEDS: SOTALOL HCL 40 MG TABLET PO ×2 (08:59→20:18)
[2023-07-10] MEDS: lisinopriL 20 MG TABLET 40 MG PO (08:59)
[2023-07-10] MEDS: busPIRone HCL 5 MG TABLET PO ×2 (08:59→20:18)
[2023-07-10] MEDS: PANTOPRAZOLE SODIUM IV 40 MG VIAL IV PUSH (08:59)
[2023-07-10] MEDS: TOLNAFTATE 1% POWDER 45 GM BTL 1 APPLIC TOPICAL ×2 (09:00→20:20)
[2023-07-10] MEDS: KETOROLAC 15 MG/ML VIAL (*BKC) IV PUSH ×2 (09:02→15:15)
--- NOTE | 2023-07-10 10:09 | ECG_ITS ---
SEE SCANNED COPY FOR CONFIRMED REPORT MTDD
--- NOTE | 2023-07-10 10:22 | PM.IMPN ---
Progress Note: A&P Assessment and Plan (1) Acute encephalopathy: Code(s): G93.40 - Encephalopathy, unspecified Status: Acute (2) PAF (paroxysmal atrial fibrillation): Code(s): I48.0 - Paroxysmal atrial fibrillation Status: Acute (3) Bile leak, postoperative: Code(s): K91.89 - Other postprocedural complications and disorders of digestive system; K83.8 - Other specified diseases of biliary tract Status: Acute (4) Anxiety: Code(s): F41.9 - Anxiety disorder, unspecified Status: Chronic (5) S/P laparoscopic cholecystectomy: Code(s): Z90.49 - Acquired absence of other specified parts of digestive tract Status: Acute (6) Lactic acidosis: Code(s): E87.20 - Acidosis, unspecified Status: Acute (7) Insulin dependent diabetes mellitus: Status: Chronic Plan 73-year-old female with paroxysmal atrial fibrillation, asthma, CAD (mild cath 06/2018 with 20% distal LAD disease), 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 The patient had an outpatient laparoscopic cholecystectomy on 07/02. She was found to have a bile leak and admitted on 07/05/2023. Bile leak -due to cholecystectomy. Hepatobiliary scan on 07/04 on admission demonstrating bowel leak -ERCP performed on 07/07 with collection of washings, sphincterotomy/papillotomy, endoscopic stent into bile duct. -ERCP again in 2 months to remove stent reassess -Plan for surgical exploration later today. Peritonitis -status post bile stent, patient taken down for paracentesis but negligible ascites was observed. -patient still has significant pain although improved. As above -continue Zosyn and Flagyl. Status post cholecystectomy -management per General surgery. Her port site incisions look good AFib with RVR -likely due to her acute stress hypovolemia. Uncontrolled with p.r.n. medications so Cardiology was consulted. -cardiology has started sotalol 80 mg p.o. b.i.d.. Continue EKG checks per Cardiology. -she takes metoprolol 25 mg p.o. b.i.d. at home but currently holding. -she converted to normal sinus rhythm at 2:30 a.m. and 07/08. However, the QTC is 497. Pending direction from Cardiology. -she takes apixaban at home. Currently holding. Acute encephalopathy -the night of 07/06 she received Dilaudid, Benadryl and Ativan and began to have visual hallucinations seeing [place] characters and people in the room who were not there. Counseled the patient on the dangers of polypharmacy of sedatives. -discussion held with patient and nurses to avoid over-sedation. On 07/08 she is no longer hallucinating as her pain medications have been used judiciously. -the encephalopathy is resolved. CT head negative for any acute intracranial findings. However, considering the leukocytosis and possible although less likely intra-abdominal infection I contacted Dr. Dr. Watson neurosurgery at [facility] and she provided very thoughtful recommendations. The patient has a MANAGER EXPRESS shunt with a programmable valve so in order for us to obtain an MRI we will need a mortician supplies sales representative/neurosurgery to reset her valve (our Neurosurgeon's do not have the information available to do this). Therefore, if the patient becomes obviously encephalopathic and CSF infection is a concern then we will perform an LP and arrange transfer to [facility] for further neurosurgery management including possible need for externalization of the MANAGER [employer] shunt. Pt/daughter agree we should not move forward with LP at t
--- NOTE | 2023-07-10 11:10 | P.OP_ITS ---
Procedure Note - Detailed Date of Procedure 07/09/23 Pre-op Diagnosis Post Cholecystectomy bile leak and bile peritonitis Post-op Diagnosis Same Procedure Performed Diagnostic laparoscopy, laparoscopic abdominal washout. Surgeon Ron Keller MD Anesthesia General Indications Patient is a 73-year-old female who about a week ago had a laparoscopic cholecystectomy performed by Dr. Melchor. She came back in the hospital 2 days later complaining severe diffuse abdominal pain associated with some nausea. A CT scan abdomen pelvis showed fluid in gallbladder fossa and the HIDA scan was performed showing a small bile leak. Gastroenterology was consulted to perform ERCP and placement of bile duct stent. This was done but the patient continued to have very severe diffuse abdominal pain most likely due to bile peritonitis from the bile ascites. She is being brought to the operating now for diagnostic laparoscopy and laparoscopic abdominal washout. Findings The patient had [id number] of bile ascites in the abdomen. This was suctioned out and then the abdomen was irrigated with 4L of warm sterile saline solution. The [employer] shunt was seen entering the left upper abdominal wall and extending down into the pelvis. There was no kinking of the shunt. The tip position was not visualized Description of Procedure After informed consent was obtained patient brought to the operating room she was placed supine position and general endotracheal anesthesia was administered. The abdomen was then prepped draped usual sterile fashion. A time-out was then performed correctly identifying the patient as well as procedure to be performed. She was already on scheduled IV antibiotics. I then proceeded in the abdomen left upper quadrant utilizing a 5mm Optiview port. Once inside the abdomen insufflated to adequate pneumoperitoneum of 15mmHg of CO2. I then placed additional 5mm trocar ports to include a small periumbilical trocar port as well as a mid epigastric trocar port and a right lateral abdominal wall trocar port. Working through all these ports I then aspirated from the pelvis and from the right upper quadrant [id number] of bile. This was not purulent at all. There was no purulence within the abdomen. The [employer] shunt was seen on the left side of the abdomen and was not kinked. The tip was entered the pelvis and I did not visualize the tip of the catheter. I then proceeded to irrigate the pelvis as well as a right upper quadrant and area the gallbladder fossa with [id number] of warm sterile saline solution. I irrigated and aspirated until the fluid of looked relatively clear without significant bile staining. Once this is done I then checked the [employer] shunt was intact. I then removed all the trocar ports under visualization all port sites appeared hemostatic. I then allowed the abdomen decompressed. The incisions were then cleaned and closed the skin level utilizing a running subcuticular 4 Monocryl suture. Skin glue was then applied to the new port sites. The patient tolerated the procedure well no complications. All sponges, needles, and instrument counts were correct at the end procedure. EBL was __5_cc. The patient was awakened and taken to recovery in stable and satisfactory condition. Implants None Estimated Blood Loss 5 Urine Output 300 Drains No Packing No Pathology None sent Complications No immediate complications Condition Stable Disposition PACU [facility] Billing Surgery - Charge Forward: Surgery Billing
--- NOTE | 2023-07-10 14:08 | WPDGIPROGNO ---
Progress Note: A&P Assessment and Plan (1) Bile leak, postoperative: Code(s): K91.89 - Other postprocedural complications and disorders of digestive system; K83.8 - Other specified diseases of biliary tract Status: Acute Assessment and Plan: stent in bile duct placed, also taken to OR yesterday and about 500ml bile removed continue medical support, pain control, diet per surgery plan is to remove stent in another 2 months (2) Abdominal pain: Qualifiers: Abdominal location: generalized Qualified Code(s): R10.84 - Generalized abdominal pain Code(s): R10.9 - Unspecified abdominal pain Status: Acute Assessment and Plan: iv pain meds (3) Leukocytosis: Qualifiers: Leukocytosis type: unspecified Qualified Code(s): D72.829 - Elevated white blood cell count, unspecified Code(s): D72.829 - Elevated white blood cell count, unspecified Status: Acute Assessment and Plan: on iv abx s/p OR and ercp with stent (4) Status post cholecystectomy: Code(s): Z90.49 - Acquired absence of other specified parts of digestive tract Status: Acute Subjective Date/time seen: 07/10/23 14:08 Interval history: yesterday went to OR for washout of bile, removed about 500ml still with abdominal pain but thinks that better today, she is participation with therapy Review of Systems Review of Systems: All systems reviewed & are unremarkable except as noted in HPI and below Exam Const: General: no acute distress HENMT: Face/Nose/Sinus: Normal nares present Eyes: Sclera: sclerae normal Resp: Effort & Inspection: normal respiratory effort Cardio: Rate: regular rate GI: GI Palp: Yes Soft to palpation and Yes Tenderness to palpation present (GI) (minimal tender, incision looks ok) Skin: General skin exam: normal color Neuro: Speech: normal speech Motor exam (neuro): 5/5 motor strength present throughout Extrem: General: normal to inspection Psych: Affect: Anxious affect present Objective Data Vital Signs Vital Signs: Vital Signs - 24 hr 07/09/23 16:30 07/09/23 16:45 07/09/23 17:00 Temperature 97.3 F L Pulse Rate 72 67 70 Respiratory Rate 12 12 18 Blood Pressure 107/58 L 102/51 L 101/60 Pulse Oximetry 99 100 100 Oxygen Delivery Simple Face Mask Simple Face Mask Simple Face Mask Oxygen Flow Rate 8 8 8 07/09/23 17:40 07/09/23 17:30 07/09/23 18:00 Temperature 98.4 F Pulse Rate 68 68 Respiratory Rate 16 Blood Pressure 109/57 L Pulse Oximetry 93 93 Oxygen Delivery Room Air Oxygen Flow Rate 07/09/23 17:58 07/09/23 18:13 07/09/23 18:28 Temperature 97.5 F L 97.4 F L 97.7 F Pulse Rate 68 69 66 Respiratory Rate 12 14 12 Blood Pressure 104/49 L 113/48 L 107/50 L Pulse Oximetry 93 91 94 Oxygen Delivery Oxygen Flow Rate 07/09/23 18:43 07/09/23 18:28 07/09/23 19:13 Temperature 97.4 F L 97.7 F Pulse Rate 66 66 Respiratory Rate 16 12 Blood Pressure 105/52 L 116/57 L Pulse Oximetry 98 87 L 99 Oxygen Delivery Nasal Cannula Oxygen Flow Rate 2 07/09/23 19:43 07/09/23 20:13 07/09/23 20:46 Temperature 97.5 F L 97.3 F L Pulse Rate 69 69 67 Respiratory Rate 12 20 Blood Pressure 125/59 L 120/60 Pulse Oximetry 100 98 Oxygen Delivery Oxygen Flow Rate 07/09/23 20:51 07/09/23 20:43 07/09/23 21:03 Temperature 97 F L 97 F L Pulse Rate 66 72 Respiratory Rate 20 16 Blood Pressure 119/54 L 121/59 L Pulse Oximetry 95 97 94 Oxygen Delivery Nasal Cannula Oxygen Flow Rate 2 07/09/23 22:02 07/10/23 00:00 07/09/23 20:00 Temperature 97.4 F L 97.2 F L Pulse Rate 66 72 66 Respiratory Rate 12 16 Blood Pressure 114/54 L 113/49 L Pulse Oximetry 95 93 Oxygen Delivery Oxygen Flow Rate 07/09/23 22:00 07/10/23 00:00 07/10/23 02:00 Temperature Pulse Rate 68 71 64 Respiratory Rate Blood Pressure Pulse Oximetry Oxygen Delivery Oxygen Flow Rate
--- NOTE | 2023-07-10 14:33 | PM.PNGS ---
Progress Note: A&P Assessment and Plan (1) Bile leak, postoperative: Code(s): K91.89 - Other postprocedural complications and disorders of digestive system; K83.8 - Other specified diseases of biliary tract Status: Acute Assessment and Plan: Postoperative bile leak after laparoscopic cholecystectomy. This has been treated with ERCP and sphincterotomy and placement of common bile duct stent to cover the area of leak. Patient taken to the OR yesterday for diagnostic laparoscopy and laparoscopic abdominal washout by Dr. Keller due to her persistent abdominal pain with bile peritonitis. Postop day 1 and her abdominal pain has improved. Will advance her to a low fat diet. Encouraged getting up to the chair and ambulating in the room, PT/OT following. Continue routine postop care. Plan I have discussed the patient's case and plan of care with Dr. Keller. Subjective Subjective Date/Time Seen: 07/10/23 14:33 Post Op day: 1 (Diagnostic laparoscopy, laparoscopic abdominal washout) Patient reports: no new complaints, feels better, pain is less, voiding w/o difficulty, flatus, no bowel movement (since admission) and afebrile Interval history: Patient reports her abdominal pain has improved since surgery. She is still feeling fairly bloated, but no nausea or vomiting. She is tolerating full liquids. No BM since admission, but passing more flatus today. She feels like she could have a BM. She is on stool softeners and has dulcolax PRN ordered but not given yet. Exam Const: General: comfortable and no acute distress Orientation/consciousness: patient oriented x3 GI: Inspection: Abdominal wall edema (diffuse), distended and incision (port incisions dry and glue intact, no erythema) GI Palp: Yes Soft to palpation, Yes Tenderness to palpation present (GI) (some mild tenderness near incisions, no longer with diffuse tenderness), No Guarding due to palpation present (GI) and No Rebound tenderness present Auscultation: normal bowel sounds Objective Data Vital Signs Vital Signs: Vital Signs - 24 hr 07/09/23 16:30 07/09/23 16:45 07/09/23 17:00 Temperature 97.3 F L Pulse Rate 72 67 70 Respiratory Rate 12 12 18 Blood Pressure 107/58 L 102/51 L 101/60 Pulse Oximetry 99 100 100 Oxygen Delivery Simple Face Mask Simple Face Mask Simple Face Mask Oxygen Flow Rate 8 8 8 07/09/23 17:40 07/09/23 17:30 07/09/23 18:00 Temperature 98.4 F Pulse Rate 68 68 Respiratory Rate 16 Blood Pressure 109/57 L Pulse Oximetry 93 93 Oxygen Delivery Room Air Oxygen Flow Rate 07/09/23 17:58 07/09/23 18:13 07/09/23 18:28 Temperature 97.5 F L 97.4 F L 97.7 F Pulse Rate 68 69 66 Respiratory Rate 12 14 12 Blood Pressure 104/49 L 113/48 L 107/50 L Pulse Oximetry 93 91 94 Oxygen Delivery Oxygen Flow Rate 07/09/23 18:43 07/09/23 18:28 07/09/23 19:13 Temperature 97.4 F L 97.7 F Pulse Rate 66 66 Respiratory Rate 16 12 Blood Pressure 105/52 L 116/57 L Pulse Oximetry 98 87 L 99 Oxygen Delivery Nasal Cannula Oxygen Flow Rate 2 07/09/23 19:43 07/09/23 20:13 07/09/23 20:46 Temperature 97.5 F L 97.3 F L Pulse Rate 69 69 67 Respiratory Rate 12 20 Blood Pressure 125/59 L 120/60 Pulse Oximetry 100 98 Oxygen Delivery Oxygen Flow Rate 07/09/23 20:51 07/09/23 20:43 07/09/23 21:03 Temperature 97 F L 97 F L Pulse Rate 66 72 Respiratory Rate 20 16 Blood Pressure 119/54 L 121/59 L Pulse Oximetry 95 97 94 Oxygen Delivery Nasal Cannula Oxygen Flow Rate 2 07/09/23 22:02 07/10/23 00:00 07/09/23 20:00 Temperature 97.4 F L 97.2 F L Pulse Rate 66 72 66 Respiratory Rate 12 16 Blood Pressure 114/54 L 113/49 L Pulse Oximetry 95 93 Oxygen Delivery Oxygen Flow Rate 07/09/23 22:00 07/10/23 00:00 07/10/23 02:00 Temperature Pulse Rate 68 71 64 Respiratory Rate Blood Pressure Pulse Oximetry Oxygen Delivery Oxygen Flow Rate 07/09/23 20:00 07/10/23 00:00 05
--- NOTE | 2023-07-10 15:23 | PC.NURSE ---
Notified CARIDAD Guillaume about patients belly button leaking serous fluid. Orders to put a 2X2 and medipore tape.
[2023-07-10 16:41] LABS: Glucose Point of Care 305 mg/dl (65-105)
[2023-07-10] MEDS: ESCITALOPRAM OXALATE 10 MG TABLET 20 MG PO (20:18)
[2023-07-10] MEDS: SIMVASTATIN 20 MG TABLET 40 MG PO (20:18)
[2023-07-10] MEDS: traZODone HCL 50 MG TABLET 100 MG PO (20:18)
[2023-07-10 20:41] LABS: Glucose Point of Care 291 mg/dl (65-105)
--- NOTE | 2023-07-10 22:41 | ECG_ITS ---
SEE SCANNED COPY FOR CONFIRMED REPORT MTDD
[2023-07-11] VITALS (21 sets, daily range): BP systolic 109–127; BP diastolic 58–90; PULSE 63–79; RESP 18–22; TEMP 35.9–36.9; O2SAT 92–100; BMI 35.9
[2023-07-11] MEDS: PIPERACILLN/TAZ 3.375GM/NS50ML 3.375 GM/50 ML BAG IVPB ×5 (01:10→23:59)
[2023-07-11] MEDS: DEXTROSE 5%/LACTATED RINGERS 1,000 ML 100 ML IV CONT (04:23)
[2023-07-11] MEDS: metroNIDAZOLE 500 MG/ISO 100ML 500 MG/100 ML BAG 100 MG IVPB ×3 (04:24→20:46)
[2023-07-11] MEDS: oxyCODONE/ACETAMINOPHEN (*CRX) 5-325 MG TABLET 1 TABLET PO ×2 (04:24→20:44)
[2023-07-11 04:42] LABS: Basophils Absolute Auto 0.1 K/mm3 (0.0-0.1); Basophils Percent Auto 0.4 % (0.2-1.2); Eosinophils Absolute Auto 0.5 K/mm3 (0-0.3); Eosinophils Percent Auto 3.5 % (0-4.4); Hematocrit 29.4 % (37.0-47.0); Immature Granulocyte Absolute 0.09 K/mm3 (0.00-0.031); Immature Granulocyte Percent A 0.6 % (0-0.5); Lymphocytes Absolute Auto 1.39 K/mm3 (0.9-3.2); Lymphocytes Percent Auto 9.8 % (18.3-44.2); Mean Corpuscular HGB Conc 30.6 g/dl (32-36); Mean Corpuscular Hemoglobin 27.7 pg (26-34); Mean Corpuscular Volume 90.5 fl (80-100); Mean Platelet Volume 10.2 fl (7.4-10.4); Monocytes Percent Auto 6.7 % (2.6-8.5); Neutrophils Absolute Auto 11.2 K/mm3 (1.3-6.7); Platelet Count Result 408 k/mm3 (150-375); Red Blood Count 3.25 M/mm3 (4.2-5.4); Red Cell Distribution Width 15.6 % (11.5-14.5); White Blood Count 14.2 K/mm3 (4.5-10.0)
[2023-07-11 05:06] LABS: Alanine Aminotransferase 13 U/L (6-35); Albumin Level 2.7 g/dL (3.5-5.1); Alkaline Phosphatase 137 U/L (38-126); Anion Gap 7 mmol/L (4-12); Aspartate Amino Transferase 25 U/L (14-36); Bilirubin,Total 0.5 mg/dL (0.2-1.3); Blood Urea Nitrogen 21 mg/dL (7-17); Calcium 7.8 mg/dL (8.4-10.2); Carbon Dioxide 20 mmol/L (22-30); Chloride 111 mmol/L (98-107); Estimated CRCL calculation 58 ml/min; Estimated Glomerular Filt Rate > 60; Glucose 314 mg/dL (65-110); Potassium 3.4 mmol/L (3.4-5.0); Sodium 138 mmol/L (137-145)
--- NOTE | 2023-07-11 08:03 | PM.PNCARD ---
Progress Note: A&P Assessment and Plan (1) PAF (paroxysmal atrial fibrillation): Code(s): I48.0 - Paroxysmal atrial fibrillation Status: Acute Assessment and Plan: [id number] 4. Normally on Eliquis which is on hold due to anticipation of GI procedure, ERCP. Was in sinus rhythm and has been over a year since in atrial fib, just on Metoprolol. Her regular awning spreader is Dr. Tristan with [facility]. Due to recurrence of atrial fib, she is now on low dose Sotalol 40 mg PO every 12 hours due to prolonged QT interval. With IVCD or LBBB, her QTc interval is OK. (2) Bile leak, postoperative: Code(s): K91.89 - Other postprocedural complications and disorders of digestive system; K83.8 - Other specified diseases of biliary tract Status: Acute Assessment and Plan: Followed by GI and general surgery. (3) Hyperlipidemia: Qualifiers: Hyperlipidemia type: unspecified Qualified Code(s): E78.5 - Hyperlipidemia, unspecified Code(s): E78.5 - Hyperlipidemia, unspecified Status: Chronic Assessment and Plan: On Simvastatin. (4) Hypertension: Qualifiers: Hypertension type: essential hypertension Qualified Code(s): I10 - Essential (primary) hypertension Code(s): I10 - Essential (primary) hypertension Status: Chronic Assessment and Plan: Low normal. Decrease Lisinopril 10 mg daily. Subjective Date/time seen: 07/11/23 08:03 Interval history: Denies chest pain or sob. She has minimal abdominal pain now. She has swelling of hands and feet with IVF. Exam Const: General: cooperative and in distress Orientation/consciousness: oriented to person, oriented to place and oriented to time Resp: Auscultation: clear to auscultation bilaterally, no crackles, no rales, no rhonchi and no wheezes Cardio: Rate: regular rate Rhythm: regular rhythm Heart sounds: no murmurs Peripheral pulses: dorsalis pedis present Neuro: General: oriented to person, oriented to place and oriented to time Extrem: Right lower extremity: no edema Left lower extremity: no edema Objective Data Vital Signs Vital Signs: Vital Signs - 24 hr 07/10/23 08:39 07/10/23 08:59 07/10/23 10:00 Temperature Pulse Rate 64 73 Respiratory Rate Blood Pressure Pulse Oximetry 97 Oxygen Delivery Room Air Oxygen Flow Rate 07/10/23 12:00 07/10/23 13:22 07/10/23 12:00 Temperature 97.6 F Pulse Rate 71 74 Respiratory Rate 16 Blood Pressure 123/58 L Pulse Oximetry 94 Oxygen Delivery Room Air Oxygen Flow Rate 07/10/23 14:00 07/10/23 16:00 07/10/23 16:00 Temperature 97.4 F L Pulse Rate 66 85 66 Respiratory Rate 20 Blood Pressure 100/49 L Pulse Oximetry 96 Oxygen Delivery Oxygen Flow Rate 07/10/23 18:00 07/10/23 19:54 07/10/23 20:18 Temperature 97.8 F Pulse Rate 69 72 74 Respiratory Rate 20 Blood Pressure 122/52 L Pulse Oximetry Oxygen Delivery Oxygen Flow Rate 07/10/23 20:00 07/10/23 20:00 07/10/23 22:00 Temperature Pulse Rate 74 71 Respiratory Rate Blood Pressure Pulse Oximetry 96 Oxygen Delivery Room Air Oxygen Flow Rate 07/11/23 00:00 07/10/23 22:56 07/11/23 00:42 Temperature 97.9 F Pulse Rate 70 Respiratory Rate 20 Blood Pressure 109/58 L Pulse Oximetry 92 92 98 Oxygen Delivery Nasal Cannula Nasal Cannula Oxygen Flow Rate 1 1 07/11/23 00:00 07/11/23 01:48 07/11/23 04:00 Temperature 97.1 F L Pulse Rate 65 64 68 Respiratory Rate 22 H Blood Pressure 119/58 L Pulse Oximetry 98 Oxygen Delivery Oxygen Flow Rate 07/11/23 04:00 07/11/23 04:00 07/11/23 06:00 Temperature Pulse Rate 64 63 Respiratory Rate Blood Pressure Pulse Oximetry 98 Oxygen Delivery Nasal Cannula Oxygen Flow Rate 1 Intake/Output Intake/Output: Intake & Output 07/08/23 07/09/23 07/10/23 07/11/23 23:59 23:59 23:59 23:59
[2023-07-11] MEDS: POTASSIUM CHLORIDE 20 MEQ PACKET (FOR LIQUID) 40 MEQ PO (09:04)
[2023-07-11 09:05] LABS: Glucose Point of Care 279 mg/dl (65-105)
[2023-07-11] MEDS: DOCUSATE SODIUM 100 MG CAPSULE PO ×2 (09:05→16:23)
[2023-07-11] MEDS: SOTALOL HCL 40 MG TABLET PO ×2 (09:05→20:45)
[2023-07-11] MEDS: lisinopriL 10 MG TABLET PO (09:05)
[2023-07-11] MEDS: TOLNAFTATE 1% POWDER 45 GM BTL 1 APPLIC TOPICAL ×2 (09:06→20:47)
[2023-07-11] MEDS: PANTOPRAZOLE SODIUM IV 40 MG VIAL IV PUSH (09:06)
[2023-07-11] MEDS: GABAPENTIN 300 MG CAPSULE PO ×2 (09:06→16:23)
[2023-07-11] MEDS: busPIRone HCL 5 MG TABLET PO ×2 (09:06→20:45)
--- NOTE | 2023-07-11 10:20 | ECG_ITS ---
SEE SCANNED COPY FOR CONFIRMED REPORT MTDD
--- NOTE | 2023-07-11 10:39 | PM.IMPN ---
Progress Note: A&P Assessment and Plan (1) Acute encephalopathy: Code(s): G93.40 - Encephalopathy, unspecified Status: Acute (2) PAF (paroxysmal atrial fibrillation): Code(s): I48.0 - Paroxysmal atrial fibrillation Status: Acute (3) Bile leak, postoperative: Code(s): K91.89 - Other postprocedural complications and disorders of digestive system; K83.8 - Other specified diseases of biliary tract Status: Acute (4) Anxiety: Code(s): F41.9 - Anxiety disorder, unspecified Status: Chronic (5) S/P laparoscopic cholecystectomy: Code(s): Z90.49 - Acquired absence of other specified parts of digestive tract Status: Acute (6) Lactic acidosis: Code(s): E87.20 - Acidosis, unspecified Status: Acute (7) Insulin dependent diabetes mellitus: Status: Chronic Plan 73-year-old female with paroxysmal atrial fibrillation, asthma, CAD (mild cath 06/2018 with 20% distal LAD disease), 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 The patient had an outpatient laparoscopic cholecystectomy on 07/02. She was found to have a bile leak and admitted on 07/05/2023. Bile leak -due to cholecystectomy. Hepatobiliary scan on 07/04 on admission demonstrating bowel leak -ERCP performed on 07/07 with collection of washings, sphincterotomy/papillotomy, endoscopic stent into bile duct. -ERCP again in 2 months to remove stent reassess -Surgical exploration on 07/09 with removal of approx 5oomL of bile. The VPS was visualized coursing to the pelvis. Peritonitis -status post bile stent, patient taken down for paracentesis but negligible ascites was observed. -Abd pain better today -continue Zosyn; okay to stop Flagyl. Status post cholecystectomy -management per General surgery. Her port site incisions look good AFib with RVR -likely due to her acute stress hypovolemia. Uncontrolled with p.r.n. medications so Cardiology was consulted. -cardiology has started sotalol 80 mg p.o. b.i.d.. Continue EKG checks per Cardiology. -she takes metoprolol 25 mg p.o. b.i.d. at home but currently holding. -she converted to normal sinus rhythm. EKG showing QTc 470 -she takes apixaban at home. Currently holding. Resume when okay with surgery Acute encephalopathy -the night of 07/06 she received Dilaudid, Benadryl and Ativan and began to have visual hallucinations seeing [place] characters and people in the room who were not there. Counseled the patient on the dangers of polypharmacy of sedatives. -discussion held with patient and nurses to avoid over-sedation. On 07/08 she is no longer hallucinating as her pain medications have been used judiciously. -the encephalopathy is resolved. CT head negative for any acute intracranial findings. However, considering the leukocytosis and possible although less likely intra-abdominal infection. Dr. Watson neurosurgery at [facility] was contacted. The patient has a DIVER PUMPER shunt with a programmable valve so in order for us to obtain an MRI we will need a public relations representative/neurosurgery to reset her valve (our Neurosurgeon's do not have the information available to do this). Therefore, if the patient becomes obviously encephalopathic and CSF infection is a concern then we will perform an LP and arrange transfer to [facility] for further neurosurgery management including possible need for externalization of the DIVER PUMPER shunt. Pt/daughter agree we should not move forward with LP at this time. SIRS -lactic acid on admission 2.
[2023-07-11] MEDS: INSULIN ASPART (*BKC) 100 UNITS/ML SUB-Q (12:10)
[2023-07-11 12:26] LABS: Glucose Point of Care 265 mg/dl (65-105)
--- NOTE | 2023-07-11 12:57 | WPDGIPROGNO ---
Progress Note: A&P Assessment and Plan (1) Bile leak, postoperative: Code(s): K91.89 - Other postprocedural complications and disorders of digestive system; K83.8 - Other specified diseases of biliary tract Status: Acute Assessment and Plan: blie leak traeted with stent in bile duct with ERCP s/p diagnostic laparoscopy and laparoscopic abdominal washout with about 500ml bile removed continue medical support, pain control tolerating diet plan is to remove stent in another 2 months (2) Abdominal pain: Qualifiers: Abdominal location: generalized Qualified Code(s): R10.84 - Generalized abdominal pain Code(s): R10.9 - Unspecified abdominal pain Status: Acute Assessment and Plan: iv pain meds improving (3) Leukocytosis: Qualifiers: Leukocytosis type: unspecified Qualified Code(s): D72.829 - Elevated white blood cell count, unspecified Code(s): D72.829 - Elevated white blood cell count, unspecified Status: Acute Assessment and Plan: on iv abx, trending down s/p abdominal washout and ercp with stent (4) Status post cholecystectomy: Code(s): Z90.49 - Acquired absence of other specified parts of digestive tract Status: Acute Subjective Date/time seen: 07/11/23 12:57 Interval history: pain has improved c/o generalized edema/swelling eating but still poor appetite Review of Systems Review of Systems: All systems reviewed & are unremarkable except as noted in HPI and below Exam Const: General: comfortable and no acute distress Orientation/consciousness: patient oriented x3 HENMT: Face/Nose/Sinus: Normal nares present Eyes: Sclera: sclerae normal Neck: Neck: supple Resp: Auscultation: diminished lung sounds Cardio: Rate: regular rate GI: Inspection: Abdominal wall edema (diffuse), distended and incision (port incisions dry and glue intact, no erythema) GI Palp: Yes Soft to palpation, Yes Tenderness to palpation present (GI) (some mild tenderness near incisions, no longer with diffuse tenderness), No Guarding due to palpation present (GI) and No Rebound tenderness present Auscultation: normal bowel sounds Skin: General skin exam: normal color Neuro: Speech: normal speech Motor exam (neuro): 5/5 motor strength present throughout Extrem: General: pedal edema Psych: Affect: Anxious affect present Objective Data Vital Signs Vital Signs: Vital Signs - 24 hr 07/10/23 13:22 07/10/23 14:00 07/10/23 16:00 Temperature 97.4 F L Pulse Rate 66 85 Respiratory Rate 20 Blood Pressure 100/49 L Pulse Oximetry 96 Oxygen Delivery Room Air Oxygen Flow Rate 07/10/23 16:00 07/10/23 18:00 07/10/23 19:54 Temperature 97.8 F Pulse Rate 66 69 72 Respiratory Rate 20 Blood Pressure 122/52 L Pulse Oximetry Oxygen Delivery Oxygen Flow Rate 07/10/23 20:18 07/10/23 20:00 07/10/23 20:00 Temperature Pulse Rate 74 74 Respiratory Rate Blood Pressure Pulse Oximetry 96 Oxygen Delivery Room Air Oxygen Flow Rate 07/10/23 22:00 07/11/23 00:00 07/10/23 22:56 Temperature Pulse Rate 71 Respiratory Rate Blood Pressure Pulse Oximetry 92 92 Oxygen Delivery Nasal Cannula Nasal Cannula Oxygen Flow Rate 1 1 07/11/23 00:42 07/11/23 00:00 07/11/23 01:48 Temperature 97.9 F Pulse Rate 70 65 64 Respiratory Rate 20 Blood Pressure 109/58 L Pulse Oximetry 98 Oxygen Delivery Oxygen Flow Rate 07/11/23 04:00 07/11/23 04:00 07/11/23 04:00 Temperature 97.1 F L Pulse Rate 68 64 Respiratory Rate 22 H Blood Pressure 119/58 L Pulse Oximetry 98 98 Oxygen Delivery Nasal Cannula Oxygen Flow Rate 1 07/11/23 06:00 07/11/23 08:00 07/11/23 09:05 Temperature 96.9 F L Pulse Rate 63 68 66 Respiratory Rate 20 Blood Pressure 121/59 L Pulse Oximetry 99 Oxygen Delivery Oxygen Flow Rate 07/11/23 08:00 07/11/23 09:42 07/10
[2023-07-11 16:07] LABS: Glucose Point of Care 190 mg/dl (65-105)
[2023-07-11] MEDS: BISACODYL 5 MG TABLET EC PO (16:23)
[2023-07-11] MEDS: KETOROLAC 15 MG/ML VIAL (*BKC) IV PUSH ×2 (16:23→23:59)
[2023-07-11] MEDS: BISACODYL 10 MG SUPPOSITORY RECTAL (16:25)
[2023-07-11] MEDS: SIMVASTATIN 20 MG TABLET 40 MG PO (20:45)
[2023-07-11] MEDS: traZODone HCL 50 MG TABLET 100 MG PO (20:45)
[2023-07-11] MEDS: ESCITALOPRAM OXALATE 10 MG TABLET 20 MG PO (20:45)
[2023-07-11 20:52] LABS: Glucose Point of Care 233 mg/dl (65-105)
[2023-07-11] MEDS: INSULIN GLARGINE (*BKC) 100 UNITS/ML 21 UNITS SUB-Q (21:00)
[2023-07-12] VITALS (20 sets, daily range): BP systolic 110–151; BP diastolic 57–72; PULSE 64–76; RESP 16–18; TEMP 36.2–36.9; O2SAT 96–100
[2023-07-12] MEDS: metroNIDAZOLE 500 MG/ISO 100ML 500 MG/100 ML BAG 100 MG IVPB ×2 (04:09→11:56)
[2023-07-12 04:13] LABS: Basophils Absolute Auto 0.1 K/mm3 (0.0-0.1); Basophils Percent Auto 0.6 % (0.2-1.2); Eosinophils Absolute Auto 0.6 K/mm3 (0-0.3); Eosinophils Percent Auto 5.2 % (0-4.4); Hematocrit 28.2 % (37.0-47.0); Hemoglobin 8.5 g/dL (12.0-15.0); Immature Granulocyte Absolute 0.06 K/mm3 (0.00-0.031); Immature Granulocyte Percent A 0.5 % (0-0.5); Lymphocytes Absolute Auto 1.55 K/mm3 (0.9-3.2); Lymphocytes Percent Auto 13.5 % (18.3-44.2); Mean Corpuscular HGB Conc 30.1 g/dl (32-36); Mean Corpuscular Hemoglobin 27.1 pg (26-34); Mean Corpuscular Volume 89.8 fl (80-100); Mean Platelet Volume 9.9 fl (7.4-10.4); Monocytes Absolute Auto 0.9 K/mm3 (0.1-0.6); Monocytes Percent Auto 8.2 % (2.6-8.5); Neutrophils Absolute Auto 8.2 K/mm3 (1.3-6.7); Platelet Count Result 400 k/mm3 (150-375); Red Blood Count 3.14 M/mm3 (4.2-5.4); Red Cell Distribution Width 15.5 % (11.5-14.5); White Blood Count 11.4 K/mm3 (4.5-10.0)
[2023-07-12 04:24] LABS: Alanine Aminotransferase 13 U/L (6-35); Albumin Level 2.6 g/dL (3.5-5.1); Alkaline Phosphatase 120 U/L (38-126); Anion Gap 4 mmol/L (4-12); Aspartate Amino Transferase 18 U/L (14-36); Bilirubin,Total 0.4 mg/dL (0.2-1.3); Blood Urea Nitrogen 18 mg/dL (7-17); Calcium 7.8 mg/dL (8.4-10.2); Carbon Dioxide 24 mmol/L (22-30); Chloride 110 mmol/L (98-107); Estimated CRCL calculation 65 ml/min; Estimated Glomerular Filt Rate > 60; Glucose 200 mg/dL (65-110); Magnesium 1.7 mg/dL (1.6-2.3); Potassium 3.7 mmol/L (3.4-5.0); Sodium 138 mmol/L (137-145)
[2023-07-12] MEDS: PIPERACILLN/TAZ 3.375GM/NS50ML 3.375 GM/50 ML BAG IVPB ×2 (05:25→11:47)
[2023-07-12] MEDS: oxyCODONE/ACETAMINOPHEN (*CRX) 5-325 MG TABLET 1 TABLET PO (05:31)
--- NOTE | 2023-07-12 07:35 | PM.PNCARD ---
Progress Note: A&P Assessment and Plan (1) PAF (paroxysmal atrial fibrillation): Code(s): I48.0 - Paroxysmal atrial fibrillation Status: Acute Assessment and Plan: [id number] 4. Normally on Eliquis which is on hold due to anticipation of GI procedure, ERCP. Was in sinus rhythm and has been over a year since in atrial fib, just on Metoprolol. Her regular electrocardiograph operator is Dr. Tristan with [facility]. Due to recurrence of atrial fib, she is now on low dose Sotalol 40 mg PO every 12 hours due to prolonged QT interval. With IVCD or LBBB, her QTc interval is OK now. Will sign off. Please call with any questions. Upon discharge have her f/u with her regular electrocardiograph operator, Dr. Tristan. (2) Bile leak, postoperative: Code(s): K91.89 - Other postprocedural complications and disorders of digestive system; K83.8 - Other specified diseases of biliary tract Status: Acute Assessment and Plan: Followed by GI and general surgery. (3) Hyperlipidemia: Qualifiers: Hyperlipidemia type: unspecified Qualified Code(s): E78.5 - Hyperlipidemia, unspecified Code(s): E78.5 - Hyperlipidemia, unspecified Status: Chronic Assessment and Plan: On Simvastatin. (4) Hypertension: Qualifiers: Hypertension type: essential hypertension Qualified Code(s): I10 - Essential (primary) hypertension Code(s): I10 - Essential (primary) hypertension Status: Chronic Assessment and Plan: Stable. Subjective Date/time seen: 07/12/23 07:35 Interval history: Denies chest pain or sob. She has minimal abdominal pain now. Exam Const: General: cooperative, healthy appearing and comfortable Orientation/consciousness: oriented to person, oriented to place and oriented to time Resp: Auscultation: clear to auscultation bilaterally, no crackles, no rales, no rhonchi and no wheezes Cardio: Rate: regular rate Rhythm: regular rhythm Heart sounds: no murmurs Peripheral pulses: dorsalis pedis present Neuro: General: oriented to person, oriented to place and oriented to time Extrem: Right lower extremity: no edema Left lower extremity: no edema Objective Data Vital Signs Vital Signs: Vital Signs - 24 hr 07/11/23 08:00 07/11/23 09:05 07/11/23 08:00 Temperature 96.9 F L Pulse Rate 68 66 Respiratory Rate 20 Blood Pressure 121/59 L Pulse Oximetry 99 100 Oxygen Delivery Nasal Cannula Oxygen Flow Rate 1 07/11/23 09:42 07/11/23 09:57 07/11/23 11:58 Temperature 96.8 F L Pulse Rate 70 Respiratory Rate Blood Pressure 123/69 Pulse Oximetry 95 99 Oxygen Delivery Nasal Cannula Nasal Cannula Oxygen Flow Rate 2 2 07/11/23 08:00 07/11/23 10:00 07/11/23 12:00 Temperature Pulse Rate 70 67 72 Respiratory Rate Blood Pressure Pulse Oximetry Oxygen Delivery Oxygen Flow Rate 07/11/23 12:00 07/11/23 14:00 07/11/23 15:52 Temperature 96.6 F L Pulse Rate 79 69 Respiratory Rate 20 Blood Pressure 126/90 Pulse Oximetry 99 99 Oxygen Delivery Nasal Cannula Oxygen Flow Rate 1 07/11/23 16:00 07/11/23 16:00 07/11/23 18:00 Temperature Pulse Rate 71 71 Respiratory Rate Blood Pressure Pulse Oximetry 98 Oxygen Delivery Nasal Cannula Oxygen Flow Rate 1 07/11/23 19:59 07/11/23 20:45 07/11/23 23:36 Temperature 98.4 F 97.7 F Pulse Rate 72 75 75 Respiratory Rate 18 20 Blood Pressure 127/61 115/59 L Pulse Oximetry 96 93 Oxygen Delivery Oxygen Flow Rate 07/11/23 20:00 07/11/23 22:00 07/11/23 20:00 Temperature Pulse Rate 71 74 Respiratory Rate Blood Pressure Pulse Oximetry Oxygen Delivery Room Air Oxygen Flow Rate 07/12/23 00:00 07/12/23 00:00 07/12/23 02:00 Temperature Pulse Rate 72 66 Respiratory Rate Blood Pressure Pulse Oximetry Oxygen Delivery Room Air Oxygen Flow Rate 07/12/23 03:41 07/12/23 04:00 07/11/23 2
[2023-07-12] MEDS: lisinopriL 10 MG TABLET PO (08:33)
[2023-07-12] MEDS: GABAPENTIN 300 MG CAPSULE PO ×2 (08:33→16:55)
[2023-07-12] MEDS: SOTALOL HCL 40 MG TABLET PO ×2 (08:33→20:28)
[2023-07-12] MEDS: busPIRone HCL 5 MG TABLET PO ×2 (08:33→20:29)
[2023-07-12] MEDS: DOCUSATE SODIUM 100 MG CAPSULE PO ×2 (08:33→16:55)
[2023-07-12] MEDS: PANTOPRAZOLE SODIUM IV 40 MG VIAL IV PUSH (08:34)
[2023-07-12] MEDS: INSULIN ASPART (*BKC) 100 UNITS/ML SUB-Q ×3 (08:34→16:55)
[2023-07-12] MEDS: TOLNAFTATE 1% POWDER 45 GM BTL 1 APPLIC TOPICAL ×2 (08:34→20:28)
[2023-07-12] MEDS: ACETAMINOPHEN 500 MG TABLET 1000 MG PO (11:45)
[2023-07-12 12:07] LABS: Glucose Point of Care 234 mg/dl (65-105)
[2023-07-12 12:07] LABS: Glucose Point of Care 216 mg/dl (65-105)
--- NOTE | 2023-07-12 13:04 | WPDGIPROGNO ---
Progress Note: A&P Assessment and Plan (1) Bile leak, postoperative: Code(s): K91.89 - Other postprocedural complications and disorders of digestive system; K83.8 - Other specified diseases of biliary tract Status: Acute Assessment and Plan: blie leak traeted with stent in bile duct with ERCP s/p diagnostic laparoscopy and laparoscopic abdominal washout with about 500ml bile removed she is continuing to feel better, pain has improved and she is more comfortable and eating plan is to remove stent in another 2 months (2) Abdominal pain: Qualifiers: Abdominal location: generalized Qualified Code(s): R10.84 - Generalized abdominal pain Code(s): R10.9 - Unspecified abdominal pain Status: Acute Assessment and Plan: iv pain meds much better (3) Leukocytosis: Qualifiers: Leukocytosis type: unspecified Qualified Code(s): D72.829 - Elevated white blood cell count, unspecified Code(s): D72.829 - Elevated white blood cell count, unspecified Status: Acute Assessment and Plan: on iv abx, trending down s/p abdominal washout and ercp with stent (4) Status post cholecystectomy: Code(s): Z90.49 - Acquired absence of other specified parts of digestive tract Status: Acute Subjective Date/time seen: 07/12/23 13:04 Interval history: she is feeling much better today and eating still with generalized swelling Review of Systems Review of Systems: All systems reviewed & are unremarkable except as noted in HPI and below Exam Const: General: comfortable and no acute distress Orientation/consciousness: patient oriented x3 HENMT: Face/Nose/Sinus: Normal nares present Eyes: Sclera: sclerae normal Neck: Neck: supple Resp: Auscultation: diminished lung sounds Cardio: Rate: regular rate GI: Inspection: Abdominal wall edema (diffuse), distended and incision (port incisions dry and glue intact, no erythema) GI Palp: Yes Soft to palpation, Yes Tenderness to palpation present (GI) (some mild tenderness near incisions, no longer with diffuse tenderness), No Guarding due to palpation present (GI) and No Rebound tenderness present Auscultation: normal bowel sounds Skin: General skin exam: normal color Neuro: Speech: normal speech Motor exam (neuro): 5/5 motor strength present throughout Extrem: General: pedal edema Psych: Affect: Anxious affect present Objective Data Vital Signs Vital Signs: Vital Signs - 24 hr 07/11/23 14:00 07/11/23 15:52 07/11/23 16:00 Temperature 96.6 F L Pulse Rate 79 69 Respiratory Rate 20 Blood Pressure 126/90 Pulse Oximetry 99 98 Oxygen Delivery Nasal Cannula Oxygen Flow Rate 1 Fraction of Inspired Oxygen 07/11/23 16:00 07/11/23 18:00 07/11/23 19:59 Temperature 98.4 F Pulse Rate 71 71 72 Respiratory Rate 18 Blood Pressure 127/61 Pulse Oximetry 96 Oxygen Delivery Oxygen Flow Rate Fraction of Inspired Oxygen 07/11/23 20:45 07/11/23 23:36 07/11/23 20:00 Temperature 97.7 F Pulse Rate 75 75 71 Respiratory Rate 20 Blood Pressure 115/59 L Pulse Oximetry 93 Oxygen Delivery Oxygen Flow Rate Fraction of Inspired Oxygen 07/11/23 22:00 07/11/23 20:00 07/12/23 00:00 Temperature Pulse Rate 74 Respiratory Rate Blood Pressure Pulse Oximetry Oxygen Delivery Room Air Room Air Oxygen Flow Rate Fraction of Inspired Oxygen 07/12/23 00:00 07/12/23 02:00 07/12/23 03:41 Temperature 98.4 F Pulse Rate 72 66 65 Respiratory Rate 16 Blood Pressure 110/57 L Pulse Oximetry 96 Oxygen Delivery Oxygen Flow Rate Fraction of Inspired Oxygen 07/12/23 04:00 07/11/23 22:03 07/12/23 04:00 Temperature Pulse Rate 64 Respiratory Rate Blood Pressure Pulse Oximetry 95 Oxygen Delivery Room Air Room Air Oxygen Flow Rate Fraction of Inspired Oxygen 07/12/23 06:00 07/12/23 07:57 07/12/23
--- NOTE | 2023-07-12 13:22 | PCNWS ---
Weekly nutritional screen. Patient is tolerating current diet with improved intake. 100% lunch. No weight loss reported. Compact BID for additional 220 kcal and 9 g protein per MD order. No nutritional needs at this time.
--- NOTE | 2023-07-12 15:01 | WPDPN ---
Progress Note: A&P Assessment and Plan (1) Bile leak, postoperative: Code(s): K91.89 - Other postprocedural complications and disorders of digestive system; K83.8 - Other specified diseases of biliary tract Status: Acute Assessment and Plan: Improving after postoperative bile leak which was treated with ERCP, sphincterotomy, and placement of biliary stent per Dr. Sears in GI. He will plan on removing the bile duct stent in 2 months. She is now having bowel movements and her reactive ileus from the bile peritonitis has resolved. She is tolerating low-fat diet. White blood cell count is trending towards normal. Was 14,000 yesterday and is 11,000 today. No fever. She still is weak and so may benefit further from continue therapy either as an outpatient at home or alf facility. From a general surgery standpoint she can be discharged from the hospital when medically optimized. She will need to follow-up Dr. Melchor in the office in 2 weeks. Subjective Date/time seen: 07/12/23 15:01 Interval history: Patient continues to slowly improve at the treatment for her post cholecystectomy bile leak. No evidence of continued bile leak. Abdominal washout and drainage of the ascites markedly improved her diffuse abdominal pain. She is now having bowel movements. Liver enzymes are normalized. White blood cell count is down from 14,000 to 11,000 today. She has been changed from IV antibiotics to oral equivalent. Tolerating low-fat diet. Exam GI: Other: Abdomen is soft and Mildly distended. Laparoscopic port sites are all healing well without any redness or drainage. Minimal to mild abdominal tenderness. Objective Data Vital Signs Vital Signs: Vital Signs - 24 hr 07/11/23 15:52 07/11/23 16:00 07/11/23 16:00 Temperature 35.9 C L Pulse Rate 69 71 Respiratory Rate 20 Blood Pressure 126/90 Pulse Oximetry 99 98 Oxygen Delivery Nasal Cannula Oxygen Flow Rate 1 Fraction of Inspired Oxygen 07/11/23 18:00 07/11/23 19:59 07/11/23 20:45 Temperature 36.9 C Pulse Rate 71 72 75 Respiratory Rate 18 Blood Pressure 127/61 Pulse Oximetry 96 Oxygen Delivery Oxygen Flow Rate Fraction of Inspired Oxygen 07/11/23 23:36 07/11/23 20:00 07/11/23 22:00 Temperature 36.5 C Pulse Rate 75 71 74 Respiratory Rate 20 Blood Pressure 115/59 L Pulse Oximetry 93 Oxygen Delivery Oxygen Flow Rate Fraction of Inspired Oxygen 07/11/23 20:00 07/12/23 00:00 07/12/23 00:00 Temperature Pulse Rate 72 Respiratory Rate Blood Pressure Pulse Oximetry Oxygen Delivery Room Air Room Air Oxygen Flow Rate Fraction of Inspired Oxygen 07/12/23 02:00 07/12/23 03:41 07/12/23 04:00 Temperature 36.9 C Pulse Rate 66 65 Respiratory Rate 16 Blood Pressure 110/57 L Pulse Oximetry 96 Oxygen Delivery Room Air Oxygen Flow Rate Fraction of Inspired Oxygen 07/11/23 22:03 07/12/23 04:00 07/12/23 06:00 Temperature Pulse Rate 64 70 Respiratory Rate Blood Pressure Pulse Oximetry 95 Oxygen Delivery Room Air Oxygen Flow Rate Fraction of Inspired Oxygen 07/12/23 07:57 07/12/23 08:00 07/12/23 08:10 Temperature 36.2 C L Pulse Rate 67 Respiratory Rate 18 Blood Pressure 119/57 L Pulse Oximetry 99 99 100 Oxygen Delivery Nasal Cannula Nasal Cannula Oxygen Flow Rate 2 2 Fraction of Inspired Oxygen 28 07/12/23 08:33 07/12/23 08:00 07/12/23 10:00 Temperature Pulse Rate 71 65 67 Respiratory Rate Blood Pressure Pulse Oximetry Oxygen Delivery Oxygen Flow Rate Fraction of Inspired Oxygen 07/12/23 11:35 07/12/23 12:00 07/12/23 12:00 Temperature 36.4 C L Pulse Rate 66 75 Respiratory Rate 16 Blood Pressure 127/70 Pulse Oximetry 97 97 Oxygen Delivery Room Air Oxygen Flow Rate Fraction of Inspired Oxygen 07/12/23 14:00 Temperature Pulse Ra
[2023-07-12] MEDS: levoFLOXacin 750 MG TABLET PO (16:54)
[2023-07-12 17:12] LABS: Glucose Point of Care 235 mg/dl (65-105)
--- NOTE | 2023-07-12 17:41 | PM.IMPN ---
Progress Note: A&P Assessment and Plan (1) Acute encephalopathy: Code(s): G93.40 - Encephalopathy, unspecified Status: Acute (2) PAF (paroxysmal atrial fibrillation): Code(s): I48.0 - Paroxysmal atrial fibrillation Status: Acute (3) Bile leak, postoperative: Code(s): K91.89 - Other postprocedural complications and disorders of digestive system; K83.8 - Other specified diseases of biliary tract Status: Acute (4) Anxiety: Code(s): F41.9 - Anxiety disorder, unspecified Status: Chronic (5) S/P laparoscopic cholecystectomy: Code(s): Z90.49 - Acquired absence of other specified parts of digestive tract Status: Acute (6) Lactic acidosis: Code(s): E87.20 - Acidosis, unspecified Status: Acute (7) Insulin dependent diabetes mellitus: Status: Chronic Plan 73-year-old female with paroxysmal atrial fibrillation, asthma, CAD (mild cath 06/2018 with 20% distal LAD disease), 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 The patient had an outpatient laparoscopic cholecystectomy on 07/02. She was found to have a bile leak and admitted on 07/05/2023. Bile leak -due to cholecystectomy. Hepatobiliary scan on 07/04 on admission demonstrating bowel leak -ERCP performed on 07/07 with collection of washings, sphincterotomy/papillotomy, endoscopic stent into bile duct. -ERCP again in 2 months to remove stent reassess -Surgical exploration on 07/09 with removal of approx 500mL of bile. The VPS was visualized coursing to the pelvis. Adjust pain medications Peritonitis -status post bile stent, patient taken down for paracentesis but negligible ascites was observed. -Abd pain improving WBC trending down -PharmD ID discussed with General Surgery and abx adjusted. Status post cholecystectomy -management per General surgery. Her port site incisions look good AFib with RVR -likely due to her acute stress hypovolemia. Uncontrolled with p.r.n. medications so Cardiology was consulted. -cardiology has started sotalol 80 mg p.o. b.i.d.. Continue EKG checks per Cardiology. -she takes metoprolol 25 mg p.o. b.i.d. at home but currently holding. -she converted to normal sinus rhythm. EKG showing QTc 470 -she takes apixaban at home. Currently holding. Resume when okay with surgery Acute encephalopathy -the night of 07/06 she received Dilaudid, Benadryl and Ativan and began to have visual hallucinations seeing [place] characters and people in the room who were not there. Counseled the patient on the dangers of polypharmacy of sedatives. -discussion held with patient and nurses to avoid over-sedation. On 07/08 she is no longer hallucinating as her pain medications have been used judiciously. -the encephalopathy is resolved. CT head negative for any acute intracranial findings. However, considering the leukocytosis and possible although less likely intra-abdominal infection. Dr. Watson [facility]surgery [facility]. The patient has a MATERIAL HAULER shunt with a programmable valve so in order for us to obtain an MRI we will need a order entry representative/neurosurgery to reset her valve (our Neurosurgeon's do not have the information available to do this). Therefore, if the patient becomes obviously encephalopathic and CSF infection is a concern then we will perform an LP and arrange transfer to [facility] for further neurosurgery management including possible need for externalization of the MATERIAL HAULER shunt. Pt/daughter agree we should not move for
[2023-07-12] MEDS: FUROSEMIDE INJ 40 MG/4 ML VIAL 20 MG IV PUSH (18:08)
[2023-07-12] MEDS: HYDROcodone/acetaminophen (*CRX) 5-325 MG TABLET 1 TAB PO (18:16)
[2023-07-12] MEDS: INSULIN GLARGINE (*BKC) 100 UNITS/ML 26 UNITS SUB-Q (20:22)
[2023-07-12] MEDS: traZODone HCL 50 MG TABLET 100 MG PO (20:29)
[2023-07-12] MEDS: ESCITALOPRAM OXALATE 10 MG TABLET 20 MG PO (20:29)
[2023-07-12] MEDS: SIMVASTATIN 20 MG TABLET 40 MG PO (20:29)
[2023-07-12 20:32] LABS: Glucose Point of Care 152 mg/dl (65-105)
[2023-07-12] MEDS: ACETAMINOPHEN 325 MG TABLET 650 MG PO (20:33)
[2023-07-13] VITALS (21 sets, daily range): BP systolic 124–146; BP diastolic 63–95; PULSE 67–120; RESP 15–22; TEMP 35.9–36.9; O2SAT 93–98
[2023-07-13] MEDS: HYDROcodone/acetaminophen (*CRX) 5-325 MG TABLET 1 TAB PO ×3 (00:22→20:22)
[2023-07-13 04:45] LABS: Basophils Absolute Auto 0.1 K/mm3 (0.0-0.1); Basophils Percent Auto 0.6 % (0.2-1.2); Eosinophils Absolute Auto 0.6 K/mm3 (0-0.3); Eosinophils Percent Auto 4.8 % (0-4.4); Hematocrit 29.8 % (37.0-47.0); Hemoglobin 9.1 g/dL (12.0-15.0); Immature Granulocyte Absolute 0.06 K/mm3 (0.00-0.031); Immature Granulocyte Percent A 0.5 % (0-0.5); Lymphocytes Absolute Auto 1.98 K/mm3 (0.9-3.2); Lymphocytes Percent Auto 15.5 % (18.3-44.2); Mean Corpuscular HGB Conc 30.5 g/dl (32-36); Mean Corpuscular Hemoglobin 26.9 pg (26-34); Mean Corpuscular Volume 88.2 fl (80-100); Monocytes Percent Auto 7.7 % (2.6-8.5); Neutrophils Absolute Auto 9.1 K/mm3 (1.3-6.7); Neutrophils Percent Auto 70.9 % (45.5-73.1); Platelet Count Result 488 k/mm3 (150-375); Red Blood Count 3.38 M/mm3 (4.2-5.4); Red Cell Distribution Width 15.4 % (11.5-14.5); White Blood Count 12.8 K/mm3 (4.5-10.0)
[2023-07-13 04:56] LABS: Alanine Aminotransferase 13 U/L (6-35); Albumin Level 2.7 g/dL (3.5-5.1); Alkaline Phosphatase 113 U/L (38-126); Anion Gap 5 mmol/L (4-12); Aspartate Amino Transferase 21 U/L (14-36); Bilirubin,Total 0.4 mg/dL (0.2-1.3); Blood Urea Nitrogen 17 mg/dL (7-17); Calcium 7.9 mg/dL (8.4-10.2); Carbon Dioxide 25 mmol/L (22-30); Chloride 108 mmol/L (98-107); Estimated CRCL calculation 76 ml/min; Estimated Glomerular Filt Rate > 60; Glucose 118 mg/dL (65-110); Potassium 3.2 mmol/L (3.4-5.0); Sodium 138 mmol/L (137-145)
[2023-07-13] MEDS: GABAPENTIN 300 MG CAPSULE PO ×2 (08:30→16:35)
[2023-07-13] MEDS: SOTALOL HCL 40 MG TABLET PO ×2 (08:31→20:17)
[2023-07-13] MEDS: busPIRone HCL 5 MG TABLET PO ×2 (08:32→20:16)
[2023-07-13] MEDS: PANTOPRAZOLE SODIUM IV 40 MG VIAL IV PUSH (08:32)
[2023-07-13] MEDS: lisinopriL 10 MG TABLET PO (08:32)
[2023-07-13] MEDS: TOLNAFTATE 1% POWDER 45 GM BTL 1 APPLIC TOPICAL ×2 (08:32→20:18)
[2023-07-13 09:35] LABS: Glucose Point of Care 151 mg/dl (65-105)
--- NOTE | 2023-07-13 11:06 | PM.PNGS ---
Progress Note: A&P Assessment and Plan (1) Bile leak, postoperative: Code(s): K91.89 - Other postprocedural complications and disorders of digestive system; K83.8 - Other specified diseases of biliary tract Status: Acute Assessment and Plan: exam benign, encourage OOB/IS, encourage po Subjective Subjective Date/Time Seen: 07/13/23 11:06 Interval history: feels bloated, uncomfortable Review of Systems Review of Systems: All systems reviewed & are unremarkable except as noted in HPI and below Exam Const: General: cooperative, no acute distress and uncomfortable Resp: Auscultation: clear to auscultation bilaterally Cardio: Rate: tachycardic Rhythm: regular rhythm GI: Inspection: normal to inspection and distended GI Palp: Yes abdominal tenderness, Yes Soft to palpation, Yes Tenderness to palpation present (GI), No Guarding due to palpation present (GI) and No Rigid due to palpation Objective Data Vital Signs Vital Signs: Vital Signs - 24 hr 07/12/23 11:35 07/12/23 12:00 07/12/23 12:00 Temperature 36.4 C L Pulse Rate 66 75 Respiratory Rate 16 Blood Pressure 127/70 Pulse Oximetry 97 97 Oxygen Delivery Room Air 07/12/23 14:00 07/12/23 16:00 07/12/23 16:00 Temperature Pulse Rate 71 66 Respiratory Rate Blood Pressure Pulse Oximetry 96 Oxygen Delivery Room Air 07/12/23 16:14 07/12/23 18:00 07/12/23 18:46 Temperature 36.7 C 36.6 C Pulse Rate 67 69 70 Respiratory Rate 16 16 Blood Pressure 128/62 151/72 H Pulse Oximetry 98 97 Oxygen Delivery 07/12/23 20:28 07/12/23 20:00 07/12/23 20:20 Temperature Pulse Rate 76 71 Respiratory Rate Blood Pressure Pulse Oximetry Oxygen Delivery Room Air 07/12/23 22:00 07/13/23 00:00 07/13/23 00:00 Temperature Pulse Rate 68 70 Respiratory Rate Blood Pressure Pulse Oximetry Oxygen Delivery Room Air 07/13/23 00:00 07/13/23 02:00 07/13/23 04:00 Temperature 36.4 C L 36.8 C Pulse Rate 71 67 71 Respiratory Rate 16 18 Blood Pressure 128/65 146/71 H Pulse Oximetry 93 98 Oxygen Delivery 07/13/23 04:00 07/13/23 04:00 07/13/23 06:00 Temperature Pulse Rate 69 73 Respiratory Rate Blood Pressure Pulse Oximetry Oxygen Delivery Room Air 07/13/23 08:17 07/13/23 08:31 Temperature 35.9 C L Pulse Rate 120 H 104 H Respiratory Rate Blood Pressure 138/95 H Pulse Oximetry 96 Oxygen Delivery Intake/Output Intake/Output: Intake & Output 07/10/23 07/11/23 07/12/23 07/13/23 23:59 23:59 23:59 23:59 Intake Total 3910 3386.7 2600 240 Output Total 800 5607 899 1055 Balance 3110 1636.7 2572 -0642 Meds/Results Medications: Active Medications Generic Name Dose Route Start Last Admin Trade Name Freq PRN Reason Stop Dose Admin Acetaminophen 650 mg 07/12/23 17:55 07/12/23 20:33 Acetaminophen 325 Mg Tablet PO 650 mg Q6H PRN Administration Mild Pain (1-3) or Fever Hydrocodone Bitart/Acetaminophen 1 tab 07/12/23 17:55 07/13/23 10:02 Hydrocodone/Acetaminophen (*Crx) 5-325 Mg Tablet PO 1 tab Q6H PRN Administration Pain Rated 4-6 Bisacodyl 5 mg 07/05/23 16:15 07/11/23 16:23 Bisacodyl 5 Mg Tablet Ec PO 5 mg DAILY PRN Administration Constipation Bisacodyl 10 mg 07/10/23 17:44 07/11/23 16:25 Bisacodyl 10 Mg Suppository RECTAL 10 mg QAM PRN Administration Constipation Buspirone HCl 5 mg 07/05/23 21:00 07/13/23 08:32 Buspirone Hcl 5 Mg Tablet PO 5 mg Q12HR ADAM Administration Dextrose 12.5 gm 07/05/23 16:18 Dextrose 50% 25 Gm/50 Ml Syringe IV PUSH PRN PRN Hypoglycemia Protocol Docusate Sodium 100 mg 07/05/23 17:00 07/13/23 08:33 Docusate Sodium 100 Mg Capsule PO Not Given BID ADAM Escitalopram Oxalate 20 mg 07/05/23 21:00 07/12/23 20:29 Escitalopram Oxalate 10 Mg Tablet PO 20 mg HS ADAM Administration Gabapentin 300 mg
[2023-07-13] MEDS: POTASSIUM CHLORIDE 20 MEQ PACKET (FOR LIQUID) 40 MEQ PO (12:08)
[2023-07-13] MEDS: MAGNESIUM SULF 2 GM/WATER 50ML 2 GM/50 ML BAG IVPB (12:08)
--- NOTE | 2023-07-13 12:19 | PM.IMPN ---
Progress Note: A&P Assessment and Plan (1) Bile leak, postoperative: Code(s): K91.89 - Other postprocedural complications and disorders of digestive system; K83.8 - Other specified diseases of biliary tract Status: Acute Assessment and Plan: Bile leak -due to cholecystectomy.? Hepatobiliary scan on 07/04 on admission demonstrating bowel leak -ERCP performed on 07/07 with collection of washings, sphincterotomy/papillotomy, endoscopic stent into bile duct. -ERCP again in 2 months to remove stent reassess -Surgical exploration on 07/09 with removal of approx 500mL of bile. The VPS was visualized coursing to the pelvis. Continue PT/OT (2) Peritonitis: Code(s): K65.9 - Peritonitis, unspecified Status: Acute Assessment and Plan: Peritonitis -status post bile stent, patient taken down for paracentesis but negligible ascites was observed. -Abd pain improving WBC trending down -PharmD ID discussed with General Surgery and abx adjusted to levaquin but can interact with Sotalol. No cultures so will change to Augmentin (3) S/P laparoscopic cholecystectomy: Code(s): Z90.49 - Acquired absence of other specified parts of digestive tract Status: Acute Assessment and Plan: Status post cholecystectomy Her port site incisions look good -management per General surgery.? (4) PAF (paroxysmal atrial fibrillation): Code(s): I48.0 - Paroxysmal atrial fibrillation Status: Acute Assessment and Plan: AFib with RVR -likely due to her acute stress and hypovolemia.? Uncontrolled with p.r.n. medications so Cardiology was consulted. -cardiology started sotalol 80 mg p.o. b.i.d..? Serial EKG checks per Cardiology. [id number] at least 6. -she takes metoprolol 25 mg p.o. b.i.d. at home but this was stopped -she converted to normal sinus rhythm. Last EKG showing QTc 470 -she takes apixaban at home.? Currently holding. Resume when okay with surgery Appears to be backin AFib - check EKG. (5) Acute encephalopathy: Code(s): G93.40 - Encephalopathy, unspecified Status: Acute Assessment and Plan: Acute encephalopathy -the night of 07/06 she received Dilaudid, Benadryl and Ativan and began to have visual hallucinations seeing [employer] characters and people in the room who were not there.? Counseled the patient on the dangers of polypharmacy of sedatives. -discussion held with patient and nurses to avoid over-sedation.? On 07/08 she is no longer hallucinating as her pain medications have been used judiciously. -the encephalopathy has resolved.? CT head negative for any acute intracranial findings.? However, considering the leukocytosis and possible although less likely intra-abdominal infection. Dr. Watson neurosurgery at [facility] was contacted.? The patient has a [employer] shunt with a programmable valve so in order for us to obtain an MRI we will need a ambulatory service representative/neurosurgery to reset her valve (our Neurosurgeon's do not have the information available to do this).? Therefore, if the patient becomes obviously encephalopathic and CSF infection is a concern then we will perform an LP and arrange transfer to [facility] for further neurosurgery management including possible need for externalization of the [employer] shunt. Pt/daughter agree we should not move forward with LP at this time. (6) SIRS (systemic inflammatory response syndrome): Code(s): R65.10 - Systemic inflammatory response syndrome (SIRS) of non-infectious origin without acute organ dysfunction Status: Acute Assessment and Plan: SIRS -lactic acid on admission 2.4, 1.4 status post fluid resuscitation -leukocytosis 20.6 on admission, 12.8 now.? Likely related to above.? Procalcitonin level low. -this is likely SIRS due to bile leak vs bacterial peritonitis Continue abx. (7) Insulin dependent diabetes mellitus: Status: Chronic Assessment and Plan: A1c 6.1. The patient's blood glucose was reviewed on 07/12
--- NOTE | 2023-07-13 12:24 | ECG_ITS ---
SEE SCANNED COPY FOR CONFIRMED REPORT MTDD
--- NOTE | 2023-07-13 13:11 | WPDGIPROGNO ---
Progress Note: A&P Assessment and Plan (1) Bile leak, postoperative: Code(s): K91.89 - Other postprocedural complications and disorders of digestive system; K83.8 - Other specified diseases of biliary tract Status: Acute Assessment and Plan: blie leak traeted with stent in bile duct with ERCP s/p diagnostic laparoscopy and laparoscopic abdominal washout with about 500ml bile removed continues to slowly feel better, probably she will go to short rehab facility plan is to remove stent in another 2 months (2) Abdominal pain: Qualifiers: Abdominal location: generalized Qualified Code(s): R10.84 - Generalized abdominal pain Code(s): R10.9 - Unspecified abdominal pain Status: Acute Assessment and Plan: iv pain meds much better (3) Leukocytosis: Qualifiers: Leukocytosis type: unspecified Qualified Code(s): D72.829 - Elevated white blood cell count, unspecified Code(s): D72.829 - Elevated white blood cell count, unspecified Status: Acute Assessment and Plan: on oral antibiotic now s/p abdominal washout and ercp with stent (4) Status post cholecystectomy: Code(s): Z90.49 - Acquired absence of other specified parts of digestive tract Status: Acute Subjective Date/time seen: 07/13/23 13:11 Interval history: better, less swelling after lasix Review of Systems Review of Systems: All systems reviewed & are unremarkable except as noted in HPI and below Exam Const: General: comfortable and no acute distress Orientation/consciousness: patient oriented x3 HENMT: Face/Nose/Sinus: Normal nares present Eyes: Sclera: sclerae normal Neck: Neck: supple Resp: Auscultation: diminished lung sounds Cardio: Rate: regular rate GI: Inspection: Abdominal wall edema (diffuse) and incision (port incisions dry and glue intact, no erythema) GI Palp: Yes Soft to palpation, Yes Tenderness to palpation present (GI) (some mild tenderness near incisions- improved), No Guarding due to palpation present (GI) and No Rebound tenderness present Auscultation: normal bowel sounds Skin: General skin exam: normal color Neuro: Speech: normal speech Motor exam (neuro): 5/5 motor strength present throughout Extrem: General: pedal edema (better) Psych: Affect: Anxious affect present Objective Data Vital Signs Vital Signs: Vital Signs - 24 hr 07/12/23 14:00 07/12/23 16:00 07/12/23 16:00 Temperature Pulse Rate 71 66 Respiratory Rate Blood Pressure Pulse Oximetry 96 Oxygen Delivery Room Air 07/12/23 16:14 07/12/23 18:00 07/12/23 18:46 Temperature 98.0 F 97.8 F Pulse Rate 67 69 70 Respiratory Rate 16 16 Blood Pressure 128/62 151/72 H Pulse Oximetry 98 97 Oxygen Delivery 07/12/23 20:28 07/12/23 20:00 07/12/23 20:20 Temperature Pulse Rate 76 71 Respiratory Rate Blood Pressure Pulse Oximetry Oxygen Delivery Room Air 07/12/23 22:00 07/13/23 00:00 07/13/23 00:00 Temperature Pulse Rate 68 70 Respiratory Rate Blood Pressure Pulse Oximetry Oxygen Delivery Room Air 07/13/23 00:00 07/13/23 02:00 07/13/23 04:00 Temperature 97.5 F L 98.3 F Pulse Rate 71 67 71 Respiratory Rate 16 18 Blood Pressure 128/65 146/71 H Pulse Oximetry 93 98 Oxygen Delivery 07/13/23 04:00 07/13/23 04:00 07/13/23 06:00 Temperature Pulse Rate 69 73 Respiratory Rate Blood Pressure Pulse Oximetry Oxygen Delivery Room Air 07/13/23 08:17 07/13/23 08:31 07/13/23 08:00 Temperature 96.7 F L Pulse Rate 120 H 104 H Respiratory Rate Blood Pressure 138/95 H Pulse Oximetry 96 97 Oxygen Delivery Room Air 07/13/23 08:00 07/13/23 10:00 07/13/23 11:59 Temperature 98.4 F Pulse Rate 116 H 108 H 114 H Respiratory Rate 22 H Blood Pressure 144/81 H Pulse Oximetry 97 Oxygen Delivery 07/13/23 12:00 07/13/23 12:00 Temperature Pulse Rate 103 H
[2023-07-13] MEDS: FUROSEMIDE INJ 40 MG/4 ML VIAL 20 MG IV PUSH (13:43)
[2023-07-13] MEDS: METOPROLOL TARTRATE INJ 5 MG/5 ML VIAL IV PUSH (13:43)
[2023-07-13 15:49] LABS: Glucose Point of Care 139 mg/dl (65-105)
[2023-07-13] MEDS: ACETAMINOPHEN 325 MG TABLET 650 MG PO (17:10)
[2023-07-13 18:47] LABS: Glucose Point of Care 152 mg/dl (65-105)
[2023-07-13 20:11] LABS: Glucose Point of Care 239 mg/dl (65-105)
[2023-07-13] MEDS: AMOXICILLIN/CLAVULANATE K 875-125 MG TAB 1 TABLET PO (20:15)
[2023-07-13] MEDS: SIMVASTATIN 20 MG TABLET 40 MG PO (20:16)
[2023-07-13] MEDS: ESCITALOPRAM OXALATE 10 MG TABLET 20 MG PO (20:16)
[2023-07-13] MEDS: traZODone HCL 50 MG TABLET 100 MG PO (20:17)
[2023-07-13] MEDS: INSULIN GLARGINE (*BKC) 100 UNITS/ML 26 UNITS SUB-Q (20:18)
[2023-07-14] VITALS (18 sets, daily range): BP systolic 107–150; BP diastolic 45–84; PULSE 72–108; RESP 16–18; TEMP 35.7–36.6; O2SAT 95–96
[2023-07-14 04:31] LABS: Basophils Absolute Auto 0.1 K/mm3 (0.0-0.1); Basophils Percent Auto 0.5 % (0.2-1.2); Eosinophils Absolute Auto 0.4 K/mm3 (0-0.3); Eosinophils Percent Auto 2.8 % (0-4.4); Hematocrit 33.8 % (37.0-47.0); Hemoglobin 10.6 g/dL (12.0-15.0); Immature Granulocyte Absolute 0.13 K/mm3 (0.00-0.031); Immature Granulocyte Percent A 0.8 % (0-0.5); Lymphocytes Absolute Auto 2.36 K/mm3 (0.9-3.2); Lymphocytes Percent Auto 15.2 % (18.3-44.2); Mean Corpuscular HGB Conc 31.4 g/dl (32-36); Mean Corpuscular Hemoglobin 26.9 pg (26-34); Mean Corpuscular Volume 85.8 fl (80-100); Mean Platelet Volume 9.8 fl (7.4-10.4); Monocytes Absolute Auto 1.1 K/mm3 (0.1-0.6); Neutrophils Absolute Auto 11.4 K/mm3 (1.3-6.7); Neutrophils Percent Auto 73.7 % (45.5-73.1); Platelet Count Result 619 k/mm3 (150-375); Red Blood Count 3.94 M/mm3 (4.2-5.4); Red Cell Distribution Width 15.4 % (11.5-14.5); White Blood Count 15.5 K/mm3 (4.5-10.0)
[2023-07-14 04:43] LABS: Alanine Aminotransferase 14 U/L (6-35); Alkaline Phosphatase 162 U/L (38-126); Anion Gap 3 mmol/L (4-12); Aspartate Amino Transferase 21 U/L (14-36); Bilirubin,Total 0.5 mg/dL (0.2-1.3); Blood Urea Nitrogen 12 mg/dL (7-17); Calcium 8.2 mg/dL (8.4-10.2); Carbon Dioxide 31 mmol/L (22-30); Chloride 105 mmol/L (98-107); Estimated CRCL calculation 86 ml/min; Estimated Glomerular Filt Rate > 60; Glucose 173 mg/dL (65-110); Potassium 3.7 mmol/L (3.4-5.0); Sodium 139 mmol/L (137-145)
[2023-07-14 07:56] LABS: Glucose Point of Care 156 mg/dl (65-105)
[2023-07-14] MEDS: TOLNAFTATE 1% POWDER 45 GM BTL 1 APPLIC TOPICAL ×2 (08:48→21:27)
[2023-07-14] MEDS: PANTOPRAZOLE 40 MG TABLET PO (08:49)
[2023-07-14] MEDS: GABAPENTIN 300 MG CAPSULE PO ×2 (08:49→16:38)
[2023-07-14] MEDS: lisinopriL 10 MG TABLET PO (08:49)
[2023-07-14] MEDS: SOTALOL HCL 40 MG TABLET PO ×2 (08:49→21:03)
[2023-07-14] MEDS: AMOXICILLIN/CLAVULANATE K 875-125 MG TAB 1 TABLET PO ×2 (08:50→21:03)
[2023-07-14] MEDS: busPIRone HCL 5 MG TABLET PO ×2 (08:50→21:02)
[2023-07-14] MEDS: HYDROcodone/acetaminophen (*CRX) 5-325 MG TABLET 1 TAB PO (08:50)
--- NOTE | 2023-07-14 09:53 | PM.PNGS ---
Progress Note: A&P Assessment and Plan (1) Peritonitis: Code(s): K65.9 - Peritonitis, unspecified Status: Acute Assessment and Plan: exam benign, cont abx, cont low fat diet, encourage OOB/IS, await disposition to likely acute rehab Subjective Subjective Date/Time Seen: 07/14/23 09:53 Interval history: feels better, less bloating, minimal pain, lu diet Review of Systems Review of Systems: All systems reviewed & are unremarkable except as noted in HPI and below Exam Const: General: cooperative, comfortable and no acute distress Resp: Auscultation: clear to auscultation bilaterally Cardio: Rate: regular rate Rhythm: regular rhythm GI: Inspection: normal to inspection and distended GI Palp: Yes abdominal tenderness, Yes Soft to palpation, Yes Tenderness to palpation present (GI), No Guarding due to palpation present (GI) and No Rigid due to palpation Objective Data Vital Signs Vital Signs: Vital Signs - 24 hr 07/13/23 10:00 07/13/23 11:59 07/13/23 12:00 Temperature 36.9 C Pulse Rate 108 H 114 H 103 H Respiratory Rate 22 H Blood Pressure 144/81 H Pulse Oximetry 97 Oxygen Delivery 07/13/23 12:00 07/13/23 13:43 07/13/23 14:00 Temperature Pulse Rate 106 H 96 Respiratory Rate Blood Pressure Pulse Oximetry Oxygen Delivery Room Air 07/13/23 11:30 07/13/23 16:00 07/13/23 16:19 Temperature 36.6 C Pulse Rate 102 H Respiratory Rate 20 Blood Pressure 126/83 Pulse Oximetry 97 Oxygen Delivery Room Air Room Air 07/13/23 16:00 07/13/23 18:00 07/13/23 19:34 Temperature 36.4 C Pulse Rate 109 H 105 H 98 Respiratory Rate 15 Blood Pressure 124/64 Pulse Oximetry 95 Oxygen Delivery 07/13/23 20:17 07/13/23 20:00 07/13/23 20:00 Temperature Pulse Rate 98 98 108 H Respiratory Rate 15 Blood Pressure Pulse Oximetry 95 Oxygen Delivery Room Air 07/13/23 22:00 07/13/23 23:55 07/14/23 00:00 Temperature 36.2 C L Pulse Rate 97 90 90 Respiratory Rate 16 16 Blood Pressure 132/63 Pulse Oximetry 96 96 Oxygen Delivery Room Air 07/14/23 00:00 07/14/23 04:00 07/14/23 04:00 Temperature 36.3 C L Pulse Rate 93 99 99 Respiratory Rate 18 18 Blood Pressure 140/84 Pulse Oximetry 95 95 Oxygen Delivery Room Air 07/14/23 02:00 07/14/23 04:00 07/14/23 05:22 Temperature Pulse Rate 87 97 75 Respiratory Rate Blood Pressure Pulse Oximetry Oxygen Delivery 07/14/23 07:25 07/14/23 08:49 Temperature 36.2 C L Pulse Rate 79 81 Respiratory Rate 18 Blood Pressure 150/76 H Pulse Oximetry 96 Oxygen Delivery Intake/Output Intake/Output: Intake & Output 07/11/23 07/12/23 07/13/23 07/14/23 23:59 23:59 23:59 23:59 Intake Total 3386.7 2600 1150 700 Output Total 3261 244 2785 1101 Balance 1636.7 6289 -1900 -401 Meds/Results Medications: Active Medications Generic Name Dose Route Start Last Admin Trade Name Freq PRN Reason Stop Dose Admin Acetaminophen 650 mg 07/12/23 17:55 07/13/23 17:10 Acetaminophen 325 Mg Tablet PO 650 mg Q6H PRN Administration Mild Pain (1-3) or Fever Hydrocodone Bitart/Acetaminophen 1 tab 07/12/23 17:55 07/14/23 08:50 Hydrocodone/Acetaminophen (*Crx) 5-325 Mg Tablet PO 1 tab Q6H PRN Administration Pain Rated 4-6 Amoxicillin/Clavulanate Potassium 1 tablet 07/13/23 21:00 07/14/23 08:50 Amoxicillin/Clavulanate K 875-125 Mg Tab PO 07/19/23 09:01 1 tablet Q12HR ADAM Administration Bisacodyl 5 mg 07/05/23 16:15 07/11/23 16:23 Bisacodyl 5 Mg Tablet Ec PO 5 mg DAILY PRN Administration Constipation Bisacodyl 10 mg 07/10/23 17:44 07/11/23 16:25 Bisacodyl 10 Mg Suppository RECTAL 10 mg QAM PRN Administration Constipation Buspirone HCl 5 mg 07/05/23 21:00 07/14/23 08:50 Buspirone Hcl 5 Mg Tablet PO 5 mg Q12HR ADAM Administration Dextrose 12.5 gm 07/05/23 16:18 Dextros
--- NOTE | 2023-07-14 10:55 | ECG_ITS ---
SEE SCANNED COPY FOR CONFIRMED REPORT MTDD
[2023-07-14] MEDS: INSULIN ASPART (*BKC) 100 UNITS/ML SUB-Q ×2 (11:27→16:38)
--- NOTE | 2023-07-14 11:32 | WPDGIPROGNO ---
Progress Note: A&P Assessment and Plan (1) Bile leak, postoperative: Code(s): K91.89 - Other postprocedural complications and disorders of digestive system; K83.8 - Other specified diseases of biliary tract Status: Acute Assessment and Plan: blie leak s/p ERCP with stent in bile duct s/p diagnostic laparoscopy and laparoscopic abdominal washout with about 500ml bile removed much better, plan is acute rehab in 1-2 days will set up another ercp to remove stent in another 2 months will sign off (2) Abdominal pain: Qualifiers: Abdominal location: generalized Qualified Code(s): R10.84 - Generalized abdominal pain Code(s): R10.9 - Unspecified abdominal pain Status: Acute Assessment and Plan: better (3) Leukocytosis: Qualifiers: Leukocytosis type: unspecified Qualified Code(s): D72.829 - Elevated white blood cell count, unspecified Code(s): D72.829 - Elevated white blood cell count, unspecified Status: Acute Assessment and Plan: on oral antibiotic now s/p abdominal washout and ercp with stent (4) Status post cholecystectomy: Code(s): Z90.49 - Acquired absence of other specified parts of digestive tract Status: Acute Subjective Date/time seen: 07/14/23 11:32 Interval history: she is getting stronger, walked to restroom, appetite is better, less edema Review of Systems Review of Systems: All systems reviewed & are unremarkable except as noted in HPI and below Exam Const: General: comfortable and no acute distress Orientation/consciousness: patient oriented x3 HENMT: Face/Nose/Sinus: Normal nares present Eyes: Sclera: sclerae normal Neck: Neck: supple Resp: Auscultation: clear to auscultation bilaterally Cardio: Rate: regular rate GI: Inspection: Abdominal wall edema (diffuse) and incision (port incisions dry and glue intact, no erythema) GI Palp: Yes Soft to palpation, Yes Tenderness to palpation present (GI) (some mild tenderness near incisions- improved) and No Guarding due to palpation present (GI) Auscultation: normal bowel sounds Skin: General skin exam: normal color Neuro: Speech: normal speech Motor exam (neuro): 5/5 motor strength present throughout Extrem: General: normal to inspection Psych: Affect: normal affect Objective Data Vital Signs Vital Signs: Vital Signs - 24 hr 07/13/23 11:59 07/13/23 12:00 07/13/23 12:00 Temperature 98.4 F Pulse Rate 114 H 103 H Respiratory Rate 22 H Blood Pressure 144/81 H Pulse Oximetry 97 Oxygen Delivery Room Air 07/13/23 13:43 07/13/23 14:00 07/13/23 16:00 Temperature Pulse Rate 106 H 96 Respiratory Rate Blood Pressure Pulse Oximetry Oxygen Delivery Room Air 07/13/23 16:19 07/13/23 16:00 07/13/23 18:00 Temperature 97.9 F Pulse Rate 102 H 109 H 105 H Respiratory Rate 20 Blood Pressure 126/83 Pulse Oximetry Oxygen Delivery 07/13/23 19:34 07/13/23 20:17 07/13/23 20:00 Temperature 97.6 F Pulse Rate 98 98 98 Respiratory Rate 15 15 Blood Pressure 124/64 Pulse Oximetry 95 95 Oxygen Delivery Room Air 07/13/23 20:00 07/13/23 22:00 07/13/23 23:55 Temperature 97.2 F L Pulse Rate 108 H 97 90 Respiratory Rate 16 Blood Pressure 132/63 Pulse Oximetry 96 Oxygen Delivery 07/14/23 00:00 07/14/23 00:00 07/14/23 04:00 Temperature 97.3 F L Pulse Rate 90 93 99 Respiratory Rate 16 18 Blood Pressure 140/84 Pulse Oximetry 96 95 Oxygen Delivery Room Air 07/14/23 04:00 07/14/23 02:00 07/14/23 04:00 Temperature Pulse Rate 99 87 97 Respiratory Rate 18 Blood Pressure Pulse Oximetry 95 Oxygen Delivery Room Air 07/14/23 05:22 07/14/23 07:25 07/14/23 08:49 Temperature 97.1 F L Pulse Rate 75 79 81 Respiratory Rate 18 Blood Pressure 150/76 H Pulse Oximetry 96 Oxygen Delivery 07/14/23 08:00 07/14/23 08:00 07/14/23 10:00 Temperature
[2023-07-14 11:45] LABS: Glucose Point of Care 231 mg/dl (65-105)
--- NOTE | 2023-07-14 14:29 | PM.IMPN ---
Progress Note: A&P Assessment and Plan (1) Bile leak, postoperative: Code(s): K91.89 - Other postprocedural complications and disorders of digestive system; K83.8 - Other specified diseases of biliary tract Status: Acute Assessment and Plan: Bile leak after a cholecystectomy.? Abdomen/pelvis CT shown a small amount amorphous fluid in the gallbladder fossa and tiny bubble free air as well as small amount of pelvic ascites are present which are likely normal postoperative changes however developing abscess or bile leak cannot be completely excluded. Hepatobiliary scan on 07/04 on admission demonstrating bowel leak -ERCP performed on 07/07 with collection of washings, sphincterotomy/papillotomy, endoscopic stent into bile duct. -ERCP again in 2 months to remove stent reassess -Surgical exploration on 07/09 with removal of approx 500mL of bile. The VPS was visualized coursing to the pelvis. Continue PT/OT. (2) Peritonitis: Code(s): K65.9 - Peritonitis, unspecified Status: Acute Assessment and Plan: Peritonitis status post bile stent, patient taken down for paracentesis but negligible ascites was observed. -Abd pain improving after washout WBC up today. PharmD ID discussed with General Surgery and abx adjusted to levaquin but can interact with Sotalol No cultures. Changed Levaquin to Augmentin but WBC up today. Will follow for now since clinically better (3) S/P laparoscopic cholecystectomy: Code(s): Z90.49 - Acquired absence of other specified parts of digestive tract Status: Acute Assessment and Plan: Patient seen here on June 26 for epigastric pain and found to have probable acute cholecystitis. Pain was pleuritic. She was discharged and followed with [facility] for elective cholecystectomy 07/02. Her port site incisions look good. She is still having pleuritic substernal localized pain without change. Suspect related to above. PE a consideration but felt less likely since more likely diagnosis exist. CTA chest 06/26 negative for PE Management per General surgery.? Will resume her Eliquis since 4 days since her last surgery and Hgb better. (4) PAF (paroxysmal atrial fibrillation): Code(s): I48.0 - Paroxysmal atrial fibrillation Status: Acute Assessment and Plan: Patient with a hx of AFib. Recurrent AFib with RVR likely due to her acute stress and hypovolemia.? Uncontrolled with p.r.n. medications so Cardiology was consulted. Cardiology started sotalol. Serial EKG checks per Cardiology. [id number] at least 6. She takes metoprolol at home but this was stopped She converted to normal sinus rhythm but still in and out of this rhythm. EKG today showing QTc 471 She takes apixaban at home which is currently on hold Will resume apixaban (5) Acute encephalopathy: Code(s): G93.40 - Encephalopathy, unspecified Status: Acute Assessment and Plan: Acute encephalopathy with visual hallucinations on the night of 07/06 after receiving Dilaudid, Benadryl and Ativan. Medications adjusted and symptoms resolved. CT head negative for any acute intracranial findings.? Considering the leukocytosis and possible although less likely intra-abdominal infection. Dr. Watson neurosurgery at [facility] was contacted.? The patient has a [employer] shunt with a programmable valve so in order for us to obtain an MRI we will need a pest control service representative/neurosurgery to reset her valve (our Neurosurgeon's do not have the information available to do this).? Therefore, if the patient becomes obviously encephalopathic and CSF infection is a concern then we will perform an LP and arrange transfer to [facility] for further neurosurgery management including possible need for externalization of the [employer] shunt. Pt/daughter agree we should not move forward with LP at this time. (6) SIRS (systemic inflammatory response syndrome): Code(s): R65.10 - Systemic inflammatory response syndrome (SIRS) of non-infectious
[2023-07-14 16:18] LABS: Glucose Point of Care 288 mg/dl (65-105)
[2023-07-14] MEDS: ACETAMINOPHEN 325 MG TABLET 650 MG PO (17:36)
[2023-07-14 20:22] LABS: Glucose Point of Care 301 mg/dl (65-105)
[2023-07-14] MEDS: INSULIN GLARGINE (*BKC) 100 UNITS/ML 26 UNITS SUB-Q (20:59)
[2023-07-14] MEDS: ESCITALOPRAM OXALATE 10 MG TABLET 20 MG PO (21:02)
[2023-07-14] MEDS: SIMVASTATIN 20 MG TABLET 40 MG PO (21:02)
[2023-07-14] MEDS: APIXABAN 5 MG TABLET PO (21:03)
[2023-07-14] MEDS: traZODone HCL 50 MG TABLET 100 MG PO (21:03)
[2023-07-14] MEDS: DOCUSATE SODIUM 100 MG CAPSULE PO (21:05)
[2023-07-14] MEDS: oxyCODONE/ACETAMINOPHEN (*CRX) 5-325 MG TABLET 1 TABLET PO (21:27)
[2023-07-15] VITALS (15 sets, daily range): BP systolic 135–151; BP diastolic 49–95; PULSE 62–82; RESP 16–20; TEMP 36.4–36.9; O2SAT 93–97
[2023-07-15] MEDS: oxyCODONE/ACETAMINOPHEN (*CRX) 5-325 MG TABLET 1 TABLET PO ×2 (04:21→21:24)
[2023-07-15 04:26] LABS: Basophils Absolute Auto 0.1 K/mm3 (0.0-0.1); Basophils Percent Auto 0.6 % (0.2-1.2); Eosinophils Absolute Auto 0.5 K/mm3 (0-0.3); Eosinophils Percent Auto 4.2 % (0-4.4); Hematocrit 28.6 % (37.0-47.0); Hemoglobin 9.1 g/dL (12.0-15.0); Immature Granulocyte Absolute 0.08 K/mm3 (0.00-0.031); Immature Granulocyte Percent A 0.6 % (0-0.5); Lymphocytes Percent Auto 17.8 % (18.3-44.2); Mean Corpuscular HGB Conc 31.8 g/dl (32-36); Mean Corpuscular Hemoglobin 27.3 pg (26-34); Mean Corpuscular Volume 85.9 fl (80-100); Mean Platelet Volume 9.4 fl (7.4-10.4); Neutrophils Absolute Auto 8.5 K/mm3 (1.3-6.7); Neutrophils Percent Auto 68.8 % (45.5-73.1); Platelet Count Result 508 k/mm3 (150-375); Red Blood Count 3.33 M/mm3 (4.2-5.4); Red Cell Distribution Width 15.5 % (11.5-14.5); White Blood Count 12.4 K/mm3 (4.5-10.0)
[2023-07-15 04:41] LABS: Alanine Aminotransferase 11 U/L (6-35); Albumin Level 2.7 g/dL (3.5-5.1); Alkaline Phosphatase 125 U/L (38-126); Anion Gap 0 mmol/L (4-12); Aspartate Amino Transferase 15 U/L (14-36); Bilirubin,Total 0.4 mg/dL (0.2-1.3); Blood Urea Nitrogen 10 mg/dL (7-17); Calcium 7.9 mg/dL (8.4-10.2); Carbon Dioxide 32 mmol/L (22-30); Chloride 105 mmol/L (98-107); Estimated CRCL calculation 75 ml/min; Estimated Glomerular Filt Rate > 60; Glucose 190 mg/dL (65-110); Potassium 3.7 mmol/L (3.4-5.0); Sodium 137 mmol/L (137-145)
[2023-07-15 08:09] LABS: Glucose Point of Care 154 mg/dl (65-105)
[2023-07-15] MEDS: SOTALOL HCL 40 MG TABLET PO ×2 (08:39→21:23)
[2023-07-15] MEDS: lisinopriL 10 MG TABLET PO (08:39)
[2023-07-15] MEDS: APIXABAN 5 MG TABLET PO ×2 (08:40→21:11)
[2023-07-15] MEDS: PANTOPRAZOLE 40 MG TABLET PO (08:40)
[2023-07-15] MEDS: AMOXICILLIN/CLAVULANATE K 875-125 MG TAB 1 TABLET PO ×2 (08:40→21:12)
[2023-07-15] MEDS: busPIRone HCL 5 MG TABLET PO ×2 (08:40→21:11)
[2023-07-15] MEDS: GABAPENTIN 300 MG CAPSULE PO ×2 (08:40→17:04)
[2023-07-15] MEDS: TOLNAFTATE 1% POWDER 45 GM BTL 1 APPLIC TOPICAL ×2 (08:41→21:35)
[2023-07-15] MEDS: ACETAMINOPHEN 325 MG TABLET 650 MG PO ×2 (08:44→17:04)
--- NOTE | 2023-07-15 10:43 | PM.PNGS ---
Progress Note: A&P Assessment and Plan (1) Peritonitis: Code(s): K65.9 - Peritonitis, unspecified Status: Acute Assessment and Plan: exam benign, cont abx, lu diet, await dispo to rehab Subjective Subjective Date/Time Seen: 07/15/23 10:43 Interval history: feels better, some weakness Review of Systems Review of Systems: All systems reviewed & are unremarkable except as noted in HPI and below Exam Const: General: cooperative, comfortable and no acute distress Resp: Auscultation: clear to auscultation bilaterally Cardio: Rate: regular rate Rhythm: regular rhythm GI: Inspection: normal to inspection and distended GI Palp: No abdominal tenderness and Yes Soft to palpation Objective Data Vital Signs Vital Signs: Vital Signs - 24 hr 07/14/23 11:20 07/14/23 12:00 07/14/23 12:00 Temperature 35.7 C L Pulse Rate 72 74 Respiratory Rate 18 Blood Pressure 131/73 Pulse Oximetry 95 Oxygen Delivery Room Air Fraction of Inspired Oxygen 07/14/23 14:00 07/14/23 16:10 07/14/23 16:00 Temperature 36.6 C Pulse Rate 79 76 76 Respiratory Rate 18 Blood Pressure 107/45 L Pulse Oximetry 96 Oxygen Delivery Fraction of Inspired Oxygen 07/14/23 18:00 07/14/23 16:00 07/14/23 20:00 Temperature 36.6 C Pulse Rate 84 81 Respiratory Rate 16 Blood Pressure 131/53 L Pulse Oximetry 95 Oxygen Delivery Room Air Fraction of Inspired Oxygen 07/14/23 20:00 07/14/23 21:03 07/14/23 20:00 Temperature Pulse Rate 81 82 78 Respiratory Rate 16 Blood Pressure Pulse Oximetry 95 Oxygen Delivery Room Air Fraction of Inspired Oxygen 07/14/23 22:00 07/15/23 00:00 07/15/23 00:00 Temperature Pulse Rate 75 77 77 Respiratory Rate 16 Blood Pressure Pulse Oximetry 95 Oxygen Delivery Room Air Fraction of Inspired Oxygen 07/15/23 00:00 07/15/23 02:00 07/15/23 04:00 Temperature 36.4 C Pulse Rate 78 74 79 Respiratory Rate 16 16 Blood Pressure 137/49 L Pulse Oximetry 96 96 Oxygen Delivery Room Air Fraction of Inspired Oxygen 07/15/23 04:00 07/15/23 04:00 07/15/23 06:14 Temperature 36.4 C L Pulse Rate 79 74 70 Respiratory Rate 16 Blood Pressure 137/65 Pulse Oximetry 96 Oxygen Delivery Fraction of Inspired Oxygen 07/15/23 08:00 07/15/23 08:45 07/15/23 08:00 Temperature 36.8 C Pulse Rate 74 Respiratory Rate 19 Blood Pressure 149/74 H Pulse Oximetry 95 96 96 Oxygen Delivery Room Air Room Air Fraction of Inspired Oxygen 21 07/15/23 08:00 07/15/23 10:00 Temperature Pulse Rate 76 72 Respiratory Rate Blood Pressure Pulse Oximetry Oxygen Delivery Fraction of Inspired Oxygen Intake/Output Intake/Output: Intake & Output 07/12/23 07/13/23 07/14/23 07/15/23 23:59 23:59 23:59 23:59 Intake Total 2600 1150 1440 740 Output Total 101 5950 1651 600 Balance 4669 -4800 -211 140 Meds/Results Medications: Active Medications Generic Name Dose Route Start Last Admin Trade Name Freq PRN Reason Stop Dose Admin Acetaminophen 650 mg 07/12/23 17:55 07/15/23 08:44 Acetaminophen 325 Mg Tablet PO 650 mg Q6H PRN Administration Mild Pain (1-3) or Fever Hydrocodone Bitart/Acetaminophen 1 tab 07/12/23 17:55 07/14/23 08:50 Hydrocodone/Acetaminophen (*Crx) 5-325 Mg Tablet PO 1 tab Q6H PRN Administration Pain Rated 4-6 Amoxicillin/Clavulanate Potassium 1 tablet 07/13/23 21:00 07/15/23 08:40 Amoxicillin/Clavulanate K 875-125 Mg Tab PO 07/19/23 09:01 1 tablet Q12HR ADAM Administration Apixaban 5 mg 07/14/23 21:00 07/15/23 08:40 Apixaban 5 Mg Tablet PO 5 mg Q12HR ADAM Administration Bisacodyl 5 mg 07/05/23 16:15 07/11/23 16:23 Bisacodyl 5 Mg Tablet Ec PO 5 mg DAILY PRN Administration Constipation Bisacodyl 10 mg 07/10/23 17:44 07/11/23 16:25 Bisacodyl 10 Mg Suppository RECTAL 10 mg QAM PRN
[2023-07-15 11:51] LABS: Glucose Point of Care 173 mg/dl (65-105)
--- NOTE | 2023-07-15 12:03 | PM.IMPN ---
Progress Note: A&P Assessment and Plan (1) Bile leak, postoperative: Code(s): K91.89 - Other postprocedural complications and disorders of digestive system; K83.8 - Other specified diseases of biliary tract Status: Acute Assessment and Plan: Bile leak after a cholecystectomy.? Abdomen/pelvis CT shown a small amount amorphous fluid in the gallbladder fossa and tiny bubble free air as well as small amount of pelvic ascites are present which are likely normal postoperative changes however developing abscess or bile leak cannot be completely excluded. Hepatobiliary scan on 07/04 demonstrating bile leak -ERCP performed on 07/07 with collection of washings, sphincterotomy/papillotomy, endoscopic stent into bile duct. -ERCP again in 2 months to remove stent reassess -Surgical exploration on 07/09 with removal of approx 500mL of bile. The VPS was visualized coursing to the pelvis. She is recovering well. Up ambulating but feels weak. Continue PT/OT. Plan for SNF tomorrow (2) Peritonitis: Code(s): K65.9 - Peritonitis, unspecified Status: Acute Assessment and Plan: Peritonitis status post bile stent, patient taken down for paracentesis but negligible ascites was observed. Abd pain improving after washout WBC better today PharmD ID discussed with General Surgery and abx adjusted to levaquin but can interact with Sotalol No cultures. Levaquin changed to Augmentin Will follow (3) S/P laparoscopic cholecystectomy: Code(s): Z90.49 - Acquired absence of other specified parts of digestive tract Status: Acute Assessment and Plan: Patient seen here on June 26 for epigastric pain and found to have probable acute cholecystitis. Pain was pleuritic. She was discharged and followed with [facility] for elective cholecystectomy 07/02. Her port site incisions look good. She was having pleuritic substernal localized pain felt related to above. Management per General surgery.? We resumed her Eliquis since Hgb stable but now dropped from 10.6 to 9.1. Will follow (4) PAF (paroxysmal atrial fibrillation): Code(s): I48.0 - Paroxysmal atrial fibrillation Status: Acute Assessment and Plan: Patient with a hx of AFib. Recurrent AFib with RVR likely due to her acute stress and hypovolemia.? Uncontrolled with p.r.n. medications so Cardiology was consulted. Metoprolol stopped and cardiology started sotalol. Serial EKG checks per Cardiology. [id number] at least 6. She converted to normal sinus rhythm but still in and out of this rhythm. EKG showing QTc 471 She takes apixaban at home which has been resumed (5) Acute encephalopathy: Code(s): G93.40 - Encephalopathy, unspecified Status: Acute Assessment and Plan: Acute encephalopathy with visual hallucinations on the night of 07/06 after receiving Dilaudid, Benadryl and Ativan. Medications adjusted and symptoms resolved. CT head negative for any acute intracranial findings.? Considering the leukocytosis and possible although less likely intra-abdominal infection. Dr. Watson neurosurgery at [facility] was contacted.? 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 Therefore, if the patient becomes obviously encephalopathic and CSF infection is a concern then we will perform an LP and arrange transfer to [facility] for further neurosurgery management including possible need for externalization of the CARGO MATE shunt. Pt/daughter agree we should not move forward with LP at this time. (6) SIRS (systemic inflammatory response syndrome): Code(s): R65.10 - Systemic inflammatory response syndrome (SIRS) of non-infectious origin without acute organ dysfunction Status: Acute Assessment and Plan: SIRS -lactic acid on admission 2.4, 1.4 status post fluid resuscitation
[2023-07-15] MEDS: HYDROcodone/acetaminophen (*CRX) 5-325 MG TABLET 1 TAB PO (12:48)
--- NOTE | 2023-07-15 15:20 | PC.NURSE ---
This patient, Alicia Del Toro, was received from [facility] on 07/15/23 at 1520. Patient/family oriented to unit policies and routines. Report received from Ashwini CARPENTER.
--- NOTE | 2023-07-15 15:32 | PC.NURSE ---
This patient, Alicia Del Toro, was transferred to [facility] on 07/15/23 at 1515. Personal belongings sent with patient. Report given to [facility]. Appropriate documentation sent with patient.
[2023-07-15 16:43] LABS: Glucose Point of Care 206 mg/dl (65-105)
[2023-07-15] MEDS: DOCUSATE SODIUM 100 MG CAPSULE PO (17:04)
[2023-07-15] MEDS: INSULIN ASPART (*BKC) 100 UNITS/ML SUB-Q ×2 (17:06→17:07)
[2023-07-15 20:04] LABS: Glucose Point of Care 202 mg/dl (65-105)
[2023-07-15] MEDS: ESCITALOPRAM OXALATE 10 MG TABLET 20 MG PO (21:11)
[2023-07-15] MEDS: traZODone HCL 50 MG TABLET 100 MG PO (21:12)
[2023-07-15] MEDS: SIMVASTATIN 20 MG TABLET 40 MG PO (21:12)
[2023-07-15] MEDS: INSULIN GLARGINE (*BKC) 100 UNITS/ML 26 UNITS SUB-Q (21:32)
[2023-07-16] VITALS (10 sets, daily range): BP systolic 138–150; BP diastolic 64–90; PULSE 77–130; RESP 16–22; TEMP 36.4–37.2; O2SAT 92–97
[2023-07-16 06:02] LABS: Hematocrit 32.3 % (37.0-47.0); Hemoglobin 9.9 g/dL (12.0-15.0); Mean Corpuscular HGB Conc 30.7 g/dl (32-36); Mean Platelet Volume 9.8 fl (7.4-10.4); Platelet Count Result 624 k/mm3 (150-375); Red Blood Count 3.67 M/mm3 (4.2-5.4); Red Cell Distribution Width 15.7 % (11.5-14.5)
[2023-07-16 06:16] LABS: Anion Gap 4 mmol/L (4-12); Blood Urea Nitrogen 6 mg/dL (7-17); Calcium 8.6 mg/dL (8.4-10.2); Carbon Dioxide 32 mmol/L (22-30); Chloride 105 mmol/L (98-107); Estimated CRCL calculation 72 ml/min; Estimated Glomerular Filt Rate > 60; Glucose 107 mg/dL (65-110); Potassium 3.6 mmol/L (3.4-5.0); Sodium 141 mmol/L (137-145)
[2023-07-16] MEDS: PANTOPRAZOLE 40 MG TABLET PO (08:14)
[2023-07-16] MEDS: DOCUSATE SODIUM 100 MG CAPSULE PO ×2 (08:14→17:00)
[2023-07-16] MEDS: lisinopriL 10 MG TABLET PO (08:14)
[2023-07-16] MEDS: SOTALOL HCL 40 MG TABLET PO (08:14)
[2023-07-16] MEDS: APIXABAN 5 MG TABLET PO ×2 (08:14→20:25)
[2023-07-16] MEDS: AMOXICILLIN/CLAVULANATE K 875-125 MG TAB 1 TABLET PO ×2 (08:14→20:25)
[2023-07-16] MEDS: busPIRone HCL 5 MG TABLET PO ×2 (08:14→20:25)
[2023-07-16] MEDS: INSULIN ASPART (*BKC) 100 UNITS/ML SUB-Q ×2 (08:15→17:01)
[2023-07-16] MEDS: TOLNAFTATE 1% POWDER 45 GM BTL 1 APPLIC TOPICAL ×2 (08:16→20:25)
[2023-07-16 08:17] LABS: Glucose Point of Care 132 mg/dl (65-105)
[2023-07-16] MEDS: GABAPENTIN 300 MG CAPSULE PO ×2 (08:56→17:00)
[2023-07-16] MEDS: dilTIAZem HCL 30 MG TABLET PO (11:31)
[2023-07-16 11:38] LABS: Glucose Point of Care 83 mg/dl (65-105)
--- NOTE | 2023-07-16 12:58 | WPDPN ---
Progress Note: A&P Assessment and Plan (1) Bile leak, postoperative: Code(s): K91.89 - Other postprocedural complications and disorders of digestive system; K83.8 - Other specified diseases of biliary tract Status: Acute Assessment and Plan: Patient's bile leak has resolved after ERCP. Abdominal washout laparoscopically performed as well. From a GI standpoint her bowels are working and she is tolerating diet. She seems to be deconditioned and will benefit from going to rehab. From a surgical perspective she can be discharged to rehab when a bed is available. She will need follow-up Dr. Melchor in the office in 2 weeks. Subjective Date/time seen: 07/16/23 12:58 Interval history: Today patient feels tired. Complaining of some back flank pain. Did tolerate some food this morning for breakfast. Really does not have much of an appetite. No nausea vomiting however. She is scheduled to go to rehab and is awaiting a bed. Exam GI: GI Palp: Yes Soft to palpation, No Firmness to palpation present (GI), No Tenderness to palpation present (GI), No Guarding due to palpation present (GI) and No Hernia present Objective Data Vital Signs Vital Signs: Vital Signs - 24 hr 07/15/23 14:00 07/15/23 15:23 07/15/23 16:00 Temperature 36.9 C Pulse Rate 62 74 78 Respiratory Rate 16 Blood Pressure 145/95 H Pulse Oximetry 97 Oxygen Delivery 07/15/23 20:00 07/15/23 21:23 07/15/23 21:12 Temperature 36.7 C Pulse Rate 80 80 Respiratory Rate 17 17 Blood Pressure 135/75 Pulse Oximetry 96 Oxygen Delivery Room Air 07/15/23 23:32 07/15/23 20:00 07/16/23 00:02 Temperature 36.6 C Pulse Rate 78 77 77 Respiratory Rate 17 Blood Pressure 138/59 L Pulse Oximetry 93 Oxygen Delivery 07/16/23 03:50 07/16/23 04:04 07/16/23 08:14 Temperature 36.7 C Pulse Rate 85 81 129 H Respiratory Rate 18 Blood Pressure 147/80 H Pulse Oximetry 93 Oxygen Delivery 07/16/23 08:00 07/16/23 08:00 07/16/23 12:00 Temperature 37.2 C 36.4 C L Pulse Rate 111 H 90 Respiratory Rate 22 H 18 Blood Pressure 141/90 H 138/77 Pulse Oximetry 92 95 Oxygen Delivery Room Air Intake/Output Intake/Output: Intake & Output 07/13/23 07/14/23 07/15/23 07/16/23 23:59 23:59 23:59 23:59 Intake Total 1150 1440 1580 350 Output Total 5950 1651 1175 Balance -4800 -211 405 350 Meds/Results Medications: Active Medications Generic Name Dose Route Start Last Admin Trade Name Freq PRN Reason Stop Dose Admin Acetaminophen 650 mg 07/12/23 17:55 07/15/23 17:04 Acetaminophen 325 Mg Tablet PO 650 mg Q6H PRN Administration Mild Pain (1-3) or Fever Hydrocodone Bitart/Acetaminophen 1 tab 07/12/23 17:55 07/15/23 12:48 Hydrocodone/Acetaminophen (*Crx) 5-325 Mg Tablet PO 1 tab Q6H PRN Administration Pain Rated 4-6 Amoxicillin/Clavulanate Potassium 1 tablet 07/13/23 21:00 07/16/23 08:14 Amoxicillin/Clavulanate K 875-125 Mg Tab PO 07/19/23 09:01 1 tablet Q12HR ADAM Administration Apixaban 5 mg 07/14/23 21:00 07/16/23 08:14 Apixaban 5 Mg Tablet PO 5 mg Q12HR ADAM Administration Bisacodyl 5 mg 07/05/23 16:15 07/11/23 16:23 Bisacodyl 5 Mg Tablet Ec PO 5 mg DAILY PRN Administration Constipation Bisacodyl 10 mg 07/10/23 17:44 07/11/23 16:25 Bisacodyl 10 Mg Suppository RECTAL 10 mg QAM PRN Administration Constipation Buspirone HCl 5 mg 07/05/23 21:00 07/16/23 08:14 Buspirone Hcl 5 Mg Tablet PO 5 mg Q12HR ADAM Administration Dextrose 12.5 gm 07/05/23 16:18 Dextrose 50% 25 Gm/50 Ml Syringe IV PUSH PRN PRN Hypoglycemia Protocol Diltiazem HCl 30 mg 07/16/23 11:00 07/16/23 11:31 Diltiazem Hcl 30 Mg Tablet PO 30 mg Q6HR ADAM Administration Docusate Sodium 100 mg 07/05/23 17:07/16/23 08:14 Docusate Sodium 100 Mg Capsule PO 100 mg BID ADAM Administration Escitalopram Oxalat
--- NOTE | 2023-07-16 14:10 | PHAR ---
Home medication identified. Gemtesa 75mg light green tablet.
--- NOTE | 2023-07-16 15:32 | PM.IMPN ---
Progress Note: A&P Assessment and Plan (1) Bile leak, postoperative: Code(s): K91.89 - Other postprocedural complications and disorders of digestive system; K83.8 - Other specified diseases of biliary tract Status: Acute Assessment and Plan: Bile leak after a cholecystectomy.? Abdomen/pelvis CT shown a small amount amorphous fluid in the gallbladder fossa and tiny bubble free air as well as small amount of pelvic ascites are present which are likely normal postoperative changes however developing abscess or bile leak cannot be completely excluded. Hepatobiliary scan on 07/04 demonstrating bile leak -ERCP performed on 07/07 with collection of washings, sphincterotomy/papillotomy, endoscopic stent into bile duct. Will need ERCP again in 2 months to remove stent -Surgical exploration on 07/09 with removal of approx 500mL of bile. The VPS was visualized coursing to the pelvis. She is recovering well. Up ambulating but feels weak. Continue PT/OT. Plan for SNF when able to be arranged. (2) Peritonitis: Code(s): K65.9 - Peritonitis, unspecified Status: Acute Assessment and Plan: Peritonitis status post bile stent, patient taken down for paracentesis but negligible ascites was observed. Abd pain improved after washout WBC up and down but around 12-15K PharmD ID discussed with General Surgery and abx adjusted to levaquin but can interact with Sotalol No cultures. Levaquin changed to Augmentin. Will follow. Repeat WBC in the morning (3) S/P laparoscopic cholecystectomy: Code(s): Z90.49 - Acquired absence of other specified parts of digestive tract Status: Acute Assessment and Plan: Patient seen here on June 26 for epigastric pain and found to have probable acute cholecystitis. Pain was pleuritic. She was discharged and followed with [facility] for elective cholecystectomy 07/02. Her port site incisions look good. She was having pleuritic substernal localized pain felt related to above. Management per General surgery.? We resumed her Eliquis since Hgb stable but now dropped from 10.6 to 9.1. Will follow (4) PAF (paroxysmal atrial fibrillation): Code(s): I48.0 - Paroxysmal atrial fibrillation Status: Acute Assessment and Plan: Patient with a hx of AFib. Recurrent AFib with RVR likely due to her acute stress and hypovolemia.? She was uncontrolled so Cardiology was consulted. Metoprolol stopped and cardiology started sotalol. Serial EKG checks per Cardiology. [id number] at least 6. She converted to normal sinus rhythm but still in and out of this rhythm. EKG showing QTc 471 Dilitazem added and she converted to NSR. Cardiology called about recurrent AFib and Sotalol dose advanced and diltiazem stopped. She takes apixaban at home which has been resumed Continue tele (5) Acute encephalopathy: Code(s): G93.40 - Encephalopathy, unspecified Status: Acute Assessment and Plan: Acute encephalopathy with visual hallucinations on the night of 07/06 after receiving Dilaudid, Benadryl and Ativan. Medications adjusted and symptoms resolved. CT head negative for any acute intracranial findings.? Considering the leukocytosis and possible although less likely intra-abdominal infection. Dr. Watson neurosurgery at [facility] was contacted.? 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 Therefore, if the patient becomes obviously encephalopathic and CSF infection is a concern then we will perform an LP and arrange transfer to [facility] for further neurosurgery management including possible need for externalization of the [employer]GANISATION MANAGER shunt. Pt/daughter agree we should not move forward with LP at this time. (6) SIRS (systemic inflammatory response syndrome): Code(s): R65.10 - Systemic inflammatory response s
--- NOTE | 2023-07-16 15:44 | PM.PNCARD ---
Progress Note: A&P Assessment and Plan (1) PAF (paroxysmal atrial fibrillation): Code(s): I48.0 - Paroxysmal atrial fibrillation Status: Acute Assessment and Plan: [id number] 4. Normally on Eliquis which is on hold due to anticipation of GI procedure, ERCP. Was in sinus rhythm and has been over a year since in atrial fib, just on Metoprolol. Her regular otologist is Dr. Tristan with [facility]. Due to recurrence of atrial fib, increase Sotalol 80 mg PO every 12 hours. Check EKG in AM. Will sign off. Please call with any questions. Upon discharge have her f/u with her regular otologist, Dr. Tristan. (2) Bile leak, postoperative: Code(s): K91.89 - Other postprocedural complications and disorders of digestive system; K83.8 - Other specified diseases of biliary tract Status: Acute Assessment and Plan: Followed by GI and general surgery. (3) Hyperlipidemia: Qualifiers: Hyperlipidemia type: unspecified Qualified Code(s): E78.5 - Hyperlipidemia, unspecified Code(s): E78.5 - Hyperlipidemia, unspecified Status: Chronic Assessment and Plan: On Simvastatin. (4) Hypertension: Qualifiers: Hypertension type: essential hypertension Qualified Code(s): I10 - Essential (primary) hypertension Code(s): I10 - Essential (primary) hypertension Status: Chronic Assessment and Plan: Stable. Subjective Date/time seen: 07/16/23 15:44 Interval history: Reports feeling bloated. No chest pain or sob. Exam Const: General: cooperative, healthy appearing, comfortable and in distress Orientation/consciousness: oriented to person, oriented to place and oriented to time Resp: Auscultation: clear to auscultation bilaterally, no crackles, no rales, no rhonchi and no wheezes Cardio: Rate: regular rate Rhythm: regular rhythm Heart sounds: no murmurs Peripheral pulses: dorsalis pedis present GI: GI Palp: Yes abdominal tenderness and Yes Soft to palpation Neuro: General: oriented to person, oriented to place and oriented to time Extrem: Right lower extremity: no edema Left lower extremity: no edema Objective Data Vital Signs Vital Signs: Vital Signs - 24 hr 07/15/23 16:00 07/15/23 20:00 07/15/23 21:23 Temperature 98.0 F Pulse Rate 78 80 80 Respiratory Rate 17 Blood Pressure 135/75 Pulse Oximetry 96 Oxygen Delivery 07/15/23 21:12 07/15/23 23:32 07/15/23 20:00 Temperature 97.9 F Pulse Rate 78 77 Respiratory Rate 17 17 Blood Pressure 138/59 L Pulse Oximetry 93 Oxygen Delivery Room Air 07/16/23 00:02 07/16/23 03:50 07/16/23 04:04 Temperature 98.1 F Pulse Rate 77 85 81 Respiratory Rate 18 Blood Pressure 147/80 H Pulse Oximetry 93 Oxygen Delivery 07/16/23 08:14 07/16/23 08:00 07/16/23 08:00 Temperature 98.9 F Pulse Rate 129 H 111 H Respiratory Rate 22 H Blood Pressure 141/90 H Pulse Oximetry 92 Oxygen Delivery Room Air 07/16/23 12:00 Temperature 97.5 F L Pulse Rate 90 Respiratory Rate 18 Blood Pressure 138/77 Pulse Oximetry 95 Oxygen Delivery Intake/Output Intake/Output: Intake & Output 07/13/23 07/14/23 07/15/23 07/16/23 23:59 23:59 23:59 23:59 Intake Total 1150 1440 1580 350 Output Total 5950 1651 1175 Balance -4800 -211 405 350 Meds/Results Medications: Active Medications Generic Name Dose Route Start Last Admin Trade Name Freq PRN Reason Stop Dose Admin Acetaminophen 650 mg 07/12/23 17:55 07/15/23 17:04 Acetaminophen 325 Mg Tablet PO 650 mg Q6H PRN Administration Mild Pain (1-3) or Fever Hydrocodone Bitart/Acetaminophen 1 tab 07/12/23 17:55 07/15/23 12:48 Hydrocodone/Acetaminophen (*Crx) 5-325 Mg Tablet PO 1 tab Q6H PRN Administration Pain Rated 4-6 Amoxicillin/Clavulanate Potassium 1 tablet 07/13/23 21:00 07/16/23 08:14 Amoxicillin/Clavulanate K 875-125 Mg Tab PO 07/19/23 09
[2023-07-16 16:35] LABS: Glucose Point of Care 256 mg/dl (65-105)
[2023-07-16] MEDS: ESCITALOPRAM OXALATE 10 MG TABLET 20 MG PO (20:25)
[2023-07-16] MEDS: SOTALOL HCL 80 MG TABLET PO (20:26)
[2023-07-16] MEDS: traZODone HCL 50 MG TABLET 100 MG PO (20:26)
[2023-07-16] MEDS: INSULIN GLARGINE (*BKC) 100 UNITS/ML 26 UNITS SUB-Q (20:29)
[2023-07-16 20:47] LABS: Glucose Point of Care 205 mg/dl (65-105)
[2023-07-17] VITALS (14 sets, daily range): BP systolic 119–150; BP diastolic 59–87; PULSE 72–99; RESP 14–22; TEMP 36.4–37.2; O2SAT 93–98
[2023-07-17 05:17] LABS: Basophils Absolute Auto 0.1 K/mm3 (0.0-0.1); Basophils Percent Auto 0.5 % (0.2-1.2); Eosinophils Absolute Auto 0.5 K/mm3 (0-0.3); Eosinophils Percent Auto 3.4 % (0-4.4); Hematocrit 31.8 % (37.0-47.0); Hemoglobin 9.7 g/dL (12.0-15.0); Immature Granulocyte Absolute 0.09 K/mm3 (0.00-0.031); Immature Granulocyte Percent A 0.6 % (0-0.5); Lymphocytes Percent Auto 17.8 % (18.3-44.2); Mean Corpuscular HGB Conc 30.5 g/dl (32-36); Mean Corpuscular Hemoglobin 26.6 pg (26-34); Mean Corpuscular Volume 87.4 fl (80-100); Mean Platelet Volume 9.7 fl (7.4-10.4); Monocytes Absolute Auto 1.5 K/mm3 (0.1-0.6); Monocytes Percent Auto 10.5 % (2.6-8.5); Neutrophils Absolute Auto 9.8 K/mm3 (1.3-6.7); Neutrophils Percent Auto 67.2 % (45.5-73.1); Platelet Count Result 616 k/mm3 (150-375); Red Blood Count 3.64 M/mm3 (4.2-5.4); Red Cell Distribution Width 15.6 % (11.5-14.5); White Blood Count 14.6 K/mm3 (4.5-10.0)
[2023-07-17 05:32] LABS: Alanine Aminotransferase 11 U/L (6-35); Albumin Level 3.1 g/dL (3.5-5.1); Alkaline Phosphatase 126 U/L (38-126); Anion Gap 3 mmol/L (4-12); Aspartate Amino Transferase 17 U/L (14-36); Bilirubin,Total 0.6 mg/dL (0.2-1.3); Blood Urea Nitrogen 6 mg/dL (7-17); Calcium 8.4 mg/dL (8.4-10.2); Carbon Dioxide 28 mmol/L (22-30); Chloride 107 mmol/L (98-107); Estimated CRCL calculation 72 ml/min; Estimated Glomerular Filt Rate > 60; Glucose 111 mg/dL (65-110); Phosphorus 3.1 mg/dL (2.5-4.5); Potassium 3.7 mmol/L (3.4-5.0); Sodium 138 mmol/L (137-145)
[2023-07-17] MEDS: ACETAMINOPHEN 325 MG TABLET 650 MG PO (05:56)
--- NOTE | 2023-07-17 06:11 | ECG_ITS ---
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 Measurements Intervals [place] Rate: 83 P: 87 FL: 193 QRS: -53 QRSD: 131 T: 254 QT: 484 QTc: 571 Interpretive Statements SINUS RHYTHM WITH OCCASIONAL VENTRICULAR PREMATURE COMPLEXES LEFT BUNDLE BRANCH BLOCK PROLONGED QT INTERVAL BASELINE ARTIFACT- V4 ABNORMAL ECG No previous ECG available for comparison Electronically Signed On 07-18-2023 14:05:50 CDT by Gallo Garza D.O.
--- NOTE | 2023-07-17 07:36 | PM.PNCARD ---
Progress Note: A&P Assessment and Plan (1) PAF (paroxysmal atrial fibrillation): Code(s): I48.0 - Paroxysmal atrial fibrillation Status: Acute Assessment and Plan: [id number] 4. Normally on Eliquis which is on hold due to anticipation of GI procedure, ERCP. Was in sinus rhythm and has been over a year since in atrial fib, just on Metoprolol. Her regular delivery tech is Dr. Tristan with [facility]. Due to recurrence of atrial fib, increase Sotalol 80 mg PO every 12 hours. Check EKG. If QT interval is OK continue 80 mg dose. Will sign off. Please call with any questions. Upon discharge have her f/u with her regular delivery tech, Dr. Tristan. (2) Bile leak, postoperative: Code(s): K91.89 - Other postprocedural complications and disorders of digestive system; K83.8 - Other specified diseases of biliary tract Status: Acute Assessment and Plan: Followed by GI and general surgery. (3) Hyperlipidemia: Qualifiers: Hyperlipidemia type: unspecified Qualified Code(s): E78.5 - Hyperlipidemia, unspecified Code(s): E78.5 - Hyperlipidemia, unspecified Status: Chronic Assessment and Plan: On Simvastatin. (4) Hypertension: Qualifiers: Hypertension type: essential hypertension Qualified Code(s): I10 - Essential (primary) hypertension Code(s): I10 - Essential (primary) hypertension Status: Chronic Assessment and Plan: Stable. Subjective Date/time seen: 07/17/23 07:36 Interval history: No chest pain or sob. Exam Const: General: cooperative, healthy appearing, comfortable and in distress Orientation/consciousness: oriented to person, oriented to place and oriented to time Resp: Auscultation: clear to auscultation bilaterally, no crackles, no rales, no rhonchi and no wheezes Cardio: Rate: regular rate Rhythm: regular rhythm Heart sounds: no murmurs Peripheral pulses: dorsalis pedis present GI: GI Palp: No abdominal tenderness and Yes Soft to palpation Neuro: General: oriented to person, oriented to place and oriented to time Extrem: Right lower extremity: no edema Left lower extremity: no edema Objective Data Vital Signs Vital Signs: Vital Signs - 24 hr 07/16/23 08:14 07/16/23 08:00 07/16/23 08:00 Temperature 98.9 F Pulse Rate 129 H 111 H Respiratory Rate 22 H Blood Pressure 141/90 H Pulse Oximetry 92 Oxygen Delivery Room Air 07/16/23 12:00 07/16/23 08:00 07/16/23 12:00 Temperature 97.5 F L Pulse Rate 90 130 H 94 Respiratory Rate 18 Blood Pressure 138/77 Pulse Oximetry 95 Oxygen Delivery 07/16/23 16:00 07/16/23 16:00 07/16/23 20:26 Temperature 98.8 F Pulse Rate 89 90 80 Respiratory Rate 18 Blood Pressure 140/64 Pulse Oximetry 95 Oxygen Delivery 07/16/23 20:00 07/16/23 20:29 07/16/23 20:29 Temperature 98.8 F Pulse Rate 87 87 Respiratory Rate 16 Blood Pressure 150/73 H Pulse Oximetry 97 Oxygen Delivery Room Air 07/17/23 00:00 07/17/23 00:01 07/17/23 04:04 Temperature 98.9 F Pulse Rate 86 82 86 Respiratory Rate 16 Blood Pressure 119/59 L Pulse Oximetry 94 Oxygen Delivery 07/17/23 04:00 Temperature 97.7 F Pulse Rate 83 Respiratory Rate 18 Blood Pressure 132/87 Pulse Oximetry 93 Oxygen Delivery Intake/Output Intake/Output: Intake & Output 07/14/23 07/15/23 07/16/23 07/17/23 23:59 23:59 23:59 23:59 Intake Total 1440 1580 960 200 Output Total 1651 1175 850 Balance -211 405 110 200 Meds/Results Medications: Active Medications Generic Name Dose Route Start Last Admin Trade Name Freq PRN Reason Stop Dose Admin Acetaminophen 650 mg 07/12/23 17:55 07/17/23 05:56 Acetaminophen 325 Mg Tablet PO 650 mg Q6H PRN Administration Mild Pain (1-3) or Fever Hydrocodone Bitart/Acetaminophen 1 tab 07/12/23 17:55 07/15/23 12:48 Hydrocodone/Acetaminophen (*Crx) 5-325 Mg Tablet PO
[2023-07-17 08:07] LABS: Glucose Point of Care 128 mg/dl (65-105)
[2023-07-17] MEDS: AMOXICILLIN/CLAVULANATE K 875-125 MG TAB 1 TABLET PO ×2 (08:29→20:51)
[2023-07-17] MEDS: APIXABAN 5 MG TABLET PO ×2 (08:29→20:51)
[2023-07-17] MEDS: SOTALOL HCL 80 MG TABLET PO (08:30)
[2023-07-17] MEDS: PANTOPRAZOLE 40 MG TABLET PO (08:30)
[2023-07-17] MEDS: lisinopriL 10 MG TABLET PO (08:30)
[2023-07-17] MEDS: GABAPENTIN 300 MG CAPSULE PO ×2 (08:30→17:41)
[2023-07-17] MEDS: busPIRone HCL 5 MG TABLET PO ×2 (08:30→20:51)
[2023-07-17] MEDS: DOCUSATE SODIUM 100 MG CAPSULE PO ×2 (08:30→17:41)
[2023-07-17] MEDS: TOLNAFTATE 1% POWDER 45 GM BTL 1 APPLIC TOPICAL ×2 (08:31→21:03)
[2023-07-17 11:52] LABS: Glucose Point of Care 217 mg/dl (65-105)
[2023-07-17] MEDS: INSULIN ASPART (*BKC) 100 UNITS/ML SUB-Q (12:05)
--- NOTE | 2023-07-17 16:10 | PM.PNGS ---
Progress Note: A&P Assessment and Plan (1) Dyspnea: Qualifiers: Dyspnea type: shortness of breath Qualified Code(s): R06.02 - Shortness of breath Code(s): R06.00 - Dyspnea, unspecified Status: Acute Assessment and Plan: Likely due to large volume of fluid given over the course of her care. Will diurese. (2) Fluid overload: Qualifiers: Hypervolemia type: other Qualified Code(s): E87.79 - Other fluid overload Code(s): E87.70 - Fluid overload, unspecified Status: Acute Assessment and Plan: patient 14 L positive during this admission. Will start diuretics. (3) Bile leak, postoperative: Code(s): K91.89 - Other postprocedural complications and disorders of digestive system; K83.8 - Other specified diseases of biliary tract Status: Acute (4) Status post cholecystectomy: Code(s): Z90.49 - Acquired absence of other specified parts of digestive tract Status: Acute Subjective Subjective Date/Time Seen: 07/17/23 16:10 Patient reports: pain is less, tolerating a regular diet, shortness of breath and afebrile Interval history: Patient examined and chart reviewed. I discussed her surgical care with Dr. Keller. Currently she is waiting to transfer to long-term facility at [facility]. Her only complaint is shortness of breath. Review of Systems Review of Systems: All systems reviewed & are unremarkable except as noted in HPI and below ( HPI) Exam Const: General: comfortable, no acute distress, awake, Physically active and other ( visibly short of breath lying in bed, not labored) Orientation/consciousness: patient oriented x3 Resp: Effort & Inspection: abnormal respiratory pattern ( short of breath) and no cough Auscultation: crackles bilateral at the base and diminished lung sounds ( bases) Cardio: Rate: regular rate Rhythm: regular rhythm GI: Inspection: Abdominal wall edema, non-distended and incision ( dry and healing) GI Palp: Yes Soft to palpation, Yes Tenderness to palpation present (GI) ( incisions and right upper quadrant), No Guarding due to palpation present (GI) and No Rebound tenderness present Auscultation: normal bowel sounds Neuro: General: patient oriented x3 and no focal motor deficits Extrem: General: no calf tenderness and edema bilateral ( lower extremities) Psych: Affect: normal affect Insight: Good insight present (Psych) Judgement: Good judgement present (Psych) Objective Data Vital Signs Vital Signs: Vital Signs - 24 hr 07/16/23 20:26 07/16/23 20:00 07/16/23 20:29 Temperature 37.1 C Pulse Rate 80 87 87 Respiratory Rate 16 Blood Pressure 150/73 H Pulse Oximetry 97 Oxygen Delivery 07/16/23 20:29 07/17/23 00:00 07/17/23 00:01 Temperature 37.2 C Pulse Rate 86 82 Respiratory Rate 16 Blood Pressure 119/59 L Pulse Oximetry 94 Oxygen Delivery Room Air 07/17/23 04:04 07/17/23 04:00 07/17/23 08:30 Temperature 36.5 C Pulse Rate 86 83 86 Respiratory Rate 18 Blood Pressure 132/87 Pulse Oximetry 93 Oxygen Delivery 07/17/23 08:00 07/17/23 08:00 07/17/23 12:00 Temperature 36.8 C 36.4 C Pulse Rate 80 75 Respiratory Rate 20 18 Blood Pressure 129/71 126/66 Pulse Oximetry 95 98 Oxygen Delivery Room Air Intake/Output Intake/Output: Intake & Output 07/14/23 07/15/23 07/16/23 07/17/23 23:59 23:59 23:59 23:59 Intake Total 1440 1580 960 260 Output Total 1651 1175 850 Balance -211 405 110 260 intake and output positive for over 14 L's during this admission Meds/Results Medications: Active Medications Generic Name Dose Route Start Last Admin Trade Name Freq PRN Reason Stop Dose Admin Acetaminophen 650 mg 07/12/23 17:55 07/17/23 05:56 Acetaminophen 325 Mg Tablet PO 650 mg Q6H PRN Administration Mild Pain (1-3) or Fever Hydrocodone Bitart/Acetaminophen 1 tab 07/12/23 17:55 07/15/23 12:48 Hydrocodone/
[2023-07-17 16:37] LABS: Glucose Point of Care 195 mg/dl (65-105)
--- NOTE | 2023-07-17 16:59 | ECG_ITS ---
SEE SCANNED COPY FOR CONFIRMED REPORT MTDD
[2023-07-17] MEDS: BUMETANIDE INJ 1 MG/4 ML VIAL 2 MG IV PUSH (17:40)
[2023-07-17] MEDS: POTASSIUM CHLORIDE 20 MEQ ER TABLET 40 MEQ PO (17:41)
[2023-07-17] MEDS: IPRATROPIUM BR 0.02% INH SOLN 0.5 MG/2.5 ML VIAL INHALATION (17:47)
[2023-07-17 18:05] LABS: NT Pro B Type Natriuretic Pept 13000 pg/mL (19.9-100); Troponin I 0.075 ng/mL (0.000-0.034)
--- NOTE | 2023-07-17 18:33 | PM.IMPN ---
Progress Note: A&P Assessment and Plan (1) Bile leak, postoperative: Code(s): K91.89 - Other postprocedural complications and disorders of digestive system; K83.8 - Other specified diseases of biliary tract Status: Acute Assessment and Plan: Bile leak after a cholecystectomy.? Abdomen/pelvis CT shown a small amount amorphous fluid in the gallbladder fossa and tiny bubble free air as well as small amount of pelvic ascites are present which are likely normal postoperative changes however developing abscess or bile leak cannot be completely excluded. Hepatobiliary scan on 07/04 demonstrating bile leak -ERCP performed on 07/07 with collection of washings, sphincterotomy/papillotomy, endoscopic stent into bile duct. Will need ERCP again in 2 months to remove stent -Surgical exploration on 07/09 with removal of approx 500mL of bile. The VPS was visualized coursing to the pelvis. She is recovering well. Up ambulating but feels weak. Continue PT/OT. Plan for SNF when able to be arranged. (2) Peritonitis: Code(s): K65.9 - Peritonitis, unspecified Status: Acute Assessment and Plan: Peritonitis status post bile stent, patient taken down for paracentesis but negligible ascites was observed. Abd pain improved after washout WBC up and down but around 12-15K PharmD ID discussed with General Surgery and abx adjusted to levaquin but can interact with Sotalol No cultures. Levaquin changed to Augmentin. Will follow. Repeat WBC in the morning (3) S/P laparoscopic cholecystectomy: Code(s): Z90.49 - Acquired absence of other specified parts of digestive tract Status: Acute Assessment and Plan: Patient seen here on June 26 for epigastric pain and found to have probable acute cholecystitis. Pain was pleuritic. She was discharged and followed with [facility] for elective cholecystectomy 07/02. Her port site incisions look good. She was having pleuritic substernal localized pain felt related to above. Management per General surgery.? We resumed her Eliquis since Hgb stable but now dropped from 10.6 to 9.1. Will follow (4) PAF (paroxysmal atrial fibrillation): Code(s): I48.0 - Paroxysmal atrial fibrillation Status: Acute Assessment and Plan: Patient with a hx of AFib. Recurrent AFib with RVR likely due to her acute stress and hypovolemia.? She was uncontrolled so Cardiology was consulted. Metoprolol stopped and cardiology started sotalol. Serial EKG checks per Cardiology. [id number] at least 6. She converted to normal sinus rhythm but still in and out of this rhythm. EKG showing QTc 471 Dilitazem added and she converted to NSR. Cardiology called about recurrent AFib and Sotalol dose advanced and diltiazem stopped. She takes apixaban at home which has been resumed Continue tele (5) Acute encephalopathy: Code(s): G93.40 - Encephalopathy, unspecified Status: Acute Assessment and Plan: Acute encephalopathy with visual hallucinations on the night of 07/06 after receiving Dilaudid, Benadryl and Ativan. Medications adjusted and symptoms resolved. CT head negative for any acute intracranial findings.? Considering the leukocytosis and possible although less likely intra-abdominal infection. Dr. Watson neurosurgery at [facility] was contacted.? 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 Therefore, if the patient becomes obviously encephalopathic and CSF infection is a concern then we will perform an LP and arrange transfer to [facility] for further neurosurgery management including possible need for externalization of the COMMUNITY AIDE shunt. Pt/daughter agree we should not move forward with LP at this time. (6) SIRS (systemic inflammatory response syndrome): Code(s): R65.10 - Systemic inflammatory response s
[2023-07-17 20:17] LABS: Glucose Point of Care 180 mg/dl (65-105)
[2023-07-17] MEDS: ESCITALOPRAM OXALATE 10 MG TABLET 20 MG PO (20:51)
[2023-07-17] MEDS: traZODone HCL 50 MG TABLET 100 MG PO (20:52)
[2023-07-17] MEDS: SOTALOL HCL 40 MG TABLET PO (20:53)
[2023-07-17] MEDS: INSULIN GLARGINE (*BKC) 100 UNITS/ML 26 UNITS SUB-Q (20:57)
--- NOTE | 2023-07-17 22:00 | ECG_ITS ---
SEE SCANNED COPY FOR CONFIRMED REPORT MTDD
[2023-07-18] VITALS (13 sets, daily range): BP systolic 118; BP diastolic 54–59; PULSE 65–94; RESP 16–18; TEMP 36.6–37; O2SAT 95–97
[2023-07-18] MEDS: IPRATROPIUM BR 0.02% INH SOLN 0.5 MG/2.5 ML VIAL INHALATION ×2 (02:11→14:19)
[2023-07-18 05:39] LABS: Basophils Absolute Auto 0.1 K/mm3 (0.0-0.1); Basophils Percent Auto 0.7 % (0.2-1.2); Eosinophils Absolute Auto 0.6 K/mm3 (0-0.3); Eosinophils Percent Auto 3.7 % (0-4.4); Hematocrit 31.1 % (37.0-47.0); Hemoglobin 9.5 g/dL (12.0-15.0); Immature Granulocyte Percent A 0.7 % (0-0.5); Lymphocytes Absolute Auto 2.74 K/mm3 (0.9-3.2); Lymphocytes Percent Auto 18.6 % (18.3-44.2); Mean Corpuscular HGB Conc 30.5 g/dl (32-36); Mean Corpuscular Hemoglobin 26.6 pg (26-34); Mean Corpuscular Volume 87.1 fl (80-100); Mean Platelet Volume 9.8 fl (7.4-10.4); Monocytes Absolute Auto 1.5 K/mm3 (0.1-0.6); Monocytes Percent Auto 10.2 % (2.6-8.5); Neutrophils Absolute Auto 9.8 K/mm3 (1.3-6.7); Neutrophils Percent Auto 66.1 % (45.5-73.1); Platelet Count Result 576 k/mm3 (150-375); Red Blood Count 3.57 M/mm3 (4.2-5.4); Red Cell Distribution Width 15.6 % (11.5-14.5); White Blood Count 14.7 K/mm3 (4.5-10.0)
[2023-07-18 05:51] LABS: Anion Gap 5 mmol/L (4-12); Blood Urea Nitrogen 7 mg/dL (7-17); Calcium 8.3 mg/dL (8.4-10.2); Carbon Dioxide 28 mmol/L (22-30); Chloride 105 mmol/L (98-107); Estimated CRCL calculation 70 ml/min; Estimated Glomerular Filt Rate > 60; Glucose 119 mg/dL (65-110); Potassium 3.9 mmol/L (3.4-5.0); Sodium 138 mmol/L (137-145)
[2023-07-18 06:01] LABS: Troponin I 0.081 ng/mL (0.000-0.034)
--- NOTE | 2023-07-18 06:13 | ECG_ITS ---
SEE SCANNED COPY FOR CONFIRMED REPORT MTDD
[2023-07-18 06:16] LABS: Procalcitonin 0.1 ng/mL
--- NOTE | 2023-07-18 08:02 | PM.PNCARD ---
Progress Note: A&P Assessment and Plan (1) PAF (paroxysmal atrial fibrillation): Code(s): I48.0 - Paroxysmal atrial fibrillation Status: Acute Assessment and Plan: [id number] 4. Normally on Eliquis which is on hold due to anticipation of GI procedure, ERCP. Was in sinus rhythm and has been over a year since in atrial fib, just on Metoprolol. 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 Tristan with [facility]. Due to recurrence of atrial fib, increase Sotalol 80 mg PO every 12 hours, but QT interval prolonged likely due to interaction with Lexapro. Therefore Sotalol lowered to 40 mg every 12 hours. Check EKG. Add Diltiazem 30 mg every 6 hours. (2) Bile leak, postoperative: Code(s): K91.89 - Other postprocedural complications and disorders of digestive system; K83.8 - Other specified diseases of biliary tract Status: Acute Assessment and Plan: Followed by GI and general surgery. (3) Hyperlipidemia: Qualifiers: Hyperlipidemia type: unspecified Qualified Code(s): E78.5 - Hyperlipidemia, unspecified Code(s): E78.5 - Hyperlipidemia, unspecified Status: Chronic Assessment and Plan: On Pravastatin. (4) Hypertension: Qualifiers: Hypertension type: essential hypertension Qualified Code(s): I10 - Essential (primary) hypertension Code(s): I10 - Essential (primary) hypertension Status: Chronic Assessment and Plan: Stable. (5) Fluid overload: Qualifiers: Hypervolemia type: other Qualified Code(s): E87.79 - Other fluid overload Code(s): E87.70 - Fluid overload, unspecified Status: Acute Assessment and Plan: Due to IVF and has diastolic dysfunction. On Bumex. Subjective Date/time seen: 07/18/23 08:02 Interval history: No chest pain or sob. Had sob yesterday afternoon and better now after Bumex. Exam Const: General: cooperative, healthy appearing, comfortable and in distress Orientation/consciousness: oriented to person, oriented to place and oriented to time Resp: Auscultation: clear to auscultation bilaterally, no crackles, no rales, no rhonchi and no wheezes Cardio: Rate: regular rate Rhythm: regular rhythm Heart sounds: no murmurs Peripheral pulses: dorsalis pedis present Neuro: General: oriented to person, oriented to place and oriented to time Extrem: Right lower extremity: no edema Left lower extremity: no edema Objective Data Vital Signs Vital Signs: Vital Signs - 24 hr 07/17/23 08:30 07/17/23 12:00 07/17/23 17:48 Temperature 97.6 F Pulse Rate 86 75 83 Respiratory Rate 18 22 H Blood Pressure 126/66 Pulse Oximetry 98 Oxygen Delivery 07/17/23 17:54 07/17/23 12:00 07/17/23 16:00 Temperature Pulse Rate 82 78 Respiratory Rate 22 H Blood Pressure Pulse Oximetry Oxygen Delivery 07/17/23 16:00 07/17/23 19:56 07/17/23 20:53 Temperature 98.3 F 98.8 F Pulse Rate 80 86 92 Respiratory Rate 14 18 Blood Pressure 150/77 H 144/79 H Pulse Oximetry 93 97 Oxygen Delivery 07/17/23 20:52 07/17/23 23:53 07/18/23 02:11 Temperature 98.7 F Pulse Rate 94 65 Respiratory Rate 17 16 Blood Pressure 124/70 Pulse Oximetry 93 Oxygen Delivery Room Air 07/18/23 02:16 07/17/23 20:00 07/18/23 00:00 Temperature Pulse Rate 85 99 94 Respiratory Rate 16 Blood Pressure Pulse Oximetry Oxygen Delivery 07/18/23 04:03 Temperature Pulse Rate 80 Respiratory Rate Blood Pressure Pulse Oximetry Oxygen Delivery Intake/Output Intake/Output: Intake & Output 07/15/23 07/16/23 07/17/23 07/18/23 23:59 23:59 23:59 23:59 Intake Total 1580 960 500 Output Total 1175 850 Balance 405 110 500 Meds/Results Medications: Active Medications Generic Name Dose Route Start Last Admin Trade Name Freq PRN Reason Stop Dose Admin Acetaminophen 650 mg 07/12/23 17:55 07/17/23 05:56 Acetaminophen 325 M
[2023-07-18 08:08] LABS: Glucose Point of Care 137 mg/dl (65-105)
--- NOTE | 2023-07-18 08:11 | PM.IMPN ---
Progress Note: A&P Assessment and Plan (1) Bile leak, postoperative: Code(s): K91.89 - Other postprocedural complications and disorders of digestive system; K83.8 - Other specified diseases of biliary tract Status: Acute Assessment and Plan: Bile leak after a cholecystectomy.? Abdomen/pelvis CT shown a small amount amorphous fluid in the gallbladder fossa and tiny bubble free air as well as small amount of pelvic ascites are present which are likely normal postoperative changes however developing abscess or bile leak cannot be completely excluded. Hepatobiliary scan on 07/04 demonstrating bile leak -ERCP performed on 07/07 with collection of washings, sphincterotomy/papillotomy, endoscopic stent into bile duct. Will need ERCP again in 2 months to remove stent -Surgical exploration on 07/09 with removal of approx 500mL of bile. The VPS was visualized coursing to the pelvis. She is recovering well. Up ambulating but feels weak. Continue PT/OT. Plan for SNF when able to be arranged. (2) Peritonitis: Code(s): K65.9 - Peritonitis, unspecified Status: Acute Assessment and Plan: Peritonitis status post bile stent, patient taken down for paracentesis but negligible ascites was observed. Abd pain improved after washout WBC up and down but around 12-15K. Procalcitonin low. PharmD ID discussed with General Surgery and abx adjusted to levaquin but can interact with Sotalol No cultures. Levaquin changed to Augmentin. Will follow. Repeat WBC in the morning (3) S/P laparoscopic cholecystectomy: Code(s): Z90.49 - Acquired absence of other specified parts of digestive tract Status: Acute Assessment and Plan: Patient seen here on June 26 for epigastric pain and found to have probable acute cholecystitis. Pain was pleuritic. She was discharged and [facility] chole[facility] 07/02. Her port site incisions look good. She was having pleuritic substernal localized pain felt related to above. Management per General surgery.? We resumed her Eliquis since Hgb stable but now dropped from 10.6 to 9.1. Will follow (4) PAF (paroxysmal atrial fibrillation): Code(s): I48.0 - Paroxysmal atrial fibrillation Status: Acute Assessment and Plan: Patient with a hx of AFib. Recurrent AFib with RVR likely due to her acute stress and hypovolemia.? She was uncontrolled so Cardiology was consulted. Metoprolol stopped and cardiology started sotalol. Serial EKG checks per Cardiology. [id number] at least 6. She is in and out of sinus rhythm. Does well with sotalol 80 mg but then her QTC goes too high. Lexapro likely interacting as well. on 07/17 cardiology recommend being sotalol back down to 40 mg p.o. b.i.d.. Also adding diltiazem 30 mg q.4 hours to help rate control. Continue EKG for QTC check. She takes apixaban at home which has been resumed Continue tele (5) Acute encephalopathy: Code(s): G93.40 - Encephalopathy, unspecified Status: Acute Assessment and Plan: Acute encephalopathy with visual hallucinations on the night of 07/06 after receiving Dilaudid, Benadryl and Ativan. Medications adjusted and symptoms resolved. CT head negative for any acute intracranial findings.? Considering the leukocytosis and possible although less likely intra-abdominal infection. Dr. Watson neurosurgery at [facility] was contacted.? 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 Therefore, if the patient becomes obviously encephalopathic and CSF infection is a concern then we will perform an LP and arrange transfer to [facility] for further neurosurgery management including possible need for externalization of the SENIOR MECHANICAL DEVELOPMENT ENGINEER shunt. Pt/daughter agree we should not move forward with LP at this time. (6) SIRS (systemic
[2023-07-18] MEDS: BUMETANIDE INJ 1 MG/4 ML VIAL 2 MG IV PUSH (08:46)
[2023-07-18] MEDS: AMOXICILLIN/CLAVULANATE K 875-125 MG TAB 1 TABLET PO ×2 (08:46→20:55)
[2023-07-18] MEDS: APIXABAN 5 MG TABLET PO ×2 (08:46→20:55)
[2023-07-18] MEDS: DOCUSATE SODIUM 100 MG CAPSULE PO ×2 (08:46→17:03)
[2023-07-18] MEDS: busPIRone HCL 5 MG TABLET PO ×2 (08:46→20:55)
[2023-07-18] MEDS: lisinopriL 10 MG TABLET PO (08:46)
[2023-07-18] MEDS: GABAPENTIN 300 MG CAPSULE PO ×2 (08:46→17:03)
[2023-07-18] MEDS: POTASSIUM CHLORIDE 20 MEQ ER TABLET 40 MEQ PO ×2 (08:46→17:03)
[2023-07-18] MEDS: SOTALOL HCL 40 MG TABLET PO (08:47)
[2023-07-18] MEDS: PANTOPRAZOLE 40 MG TABLET PO (08:47)
--- NOTE | 2023-07-18 10:00 | ECG_ITS ---
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 Measurements Intervals [place] Rate: 78 P: -88 UT: 154 QRS: -42 QRSD: 128 T: 258 QT: 491 QTc: 561 Interpretive Statements SINUS RHYTHM LEFT AXIS DEVIATIONLEFT BUNDLE BRANCH BLOCK PROLONGED QT INTERVAL ABNORMAL ECG No previous ECG available for comparison Electronically Signed On 07-18-2023 11:17:28 CDT by Gallo Garza D.O.
[2023-07-18] MEDS: TOLNAFTATE 1% POWDER 45 GM BTL 1 APPLIC TOPICAL ×2 (10:16→20:55)
[2023-07-18 11:56] LABS: Glucose Point of Care 179 mg/dl (65-105)
[2023-07-18] MEDS: dilTIAZem HCL 30 MG TABLET PO (12:17)
--- NOTE | 2023-07-18 15:42 | PM.PNGS ---
Progress Note: A&P Assessment and Plan (1) Fluid overload: Qualifiers: Hypervolemia type: other Qualified Code(s): E87.79 - Other fluid overload Code(s): E87.70 - Fluid overload, unspecified Status: Acute Assessment and Plan: improving with Bumex diuresis. Potassium being supplemented and is stable. (2) Dyspnea: Qualifiers: Dyspnea type: shortness of breath Qualified Code(s): R06.02 - Shortness of breath Code(s): R06.00 - Dyspnea, unspecified Status: Acute Assessment and Plan: Much improved. Chest x-ray showed mild pulmonary edema. BNP was [address]. (3) Bile leak, postoperative: Code(s): K91.89 - Other postprocedural complications and disorders of digestive system; K83.8 - Other specified diseases of biliary tract Status: Acute Assessment and Plan: Resolved. Patient to have biliary stent removed in about 3 months per GI. (4) Status post cholecystectomy: Code(s): Z90.49 - Acquired absence of other specified parts of digestive tract Status: Acute Assessment and Plan: For acute cholecystitis. Subjective Subjective Date/Time Seen: 07/18/23 15:42 Patient reports: feels better ( shortness of breath improved) Interval history: major complaint is that she is tired of being in the hospital and wishes [facility] to [facility]. She is not nearly as short of breath and has been up walking today. Review of Systems Review of Systems: All systems reviewed & are unremarkable except as noted in HPI and below ( HPI) Exam Const: General: cooperative, comfortable, alert, awake and well nourished; No acute distress Orientation/consciousness: patient oriented x3 Resp: Effort & Inspection: normal respiratory effort Auscultation: clear to auscultation bilaterally, no crackles and no rales Cardio: Rate: regular rate Rhythm: regular rhythm Heart sounds: no gallops, no murmurs and no rubs GI: Inspection: incision ( incisions healing well) GI Palp: Yes Tenderness to palpation present (GI) ( right upper quadrant) Objective Data Vital Signs Vital Signs: Vital Signs - 24 hr 07/17/23 17:48 07/17/23 17:54 07/17/23 16:00 Temperature Pulse Rate 83 78 Respiratory Rate 22 H 22 H Blood Pressure Pulse Oximetry Oxygen Delivery 07/17/23 16:00 07/17/23 19:56 07/17/23 20:53 Temperature 36.8 C 37.1 C Pulse Rate 80 86 92 Respiratory Rate 14 18 Blood Pressure 150/77 H 144/79 H Pulse Oximetry 93 97 Oxygen Delivery 07/17/23 20:52 07/17/23 23:53 07/18/23 02:11 Temperature 37.1 C Pulse Rate 94 65 Respiratory Rate 17 16 Blood Pressure 124/70 Pulse Oximetry 93 Oxygen Delivery Room Air 07/18/23 02:16 07/17/23 20:00 07/18/23 00:00 Temperature Pulse Rate 85 99 94 Respiratory Rate 16 Blood Pressure Pulse Oximetry Oxygen Delivery 07/18/23 04:03 07/18/23 08:47 07/18/23 08:00 Temperature Pulse Rate 80 88 84 Respiratory Rate Blood Pressure Pulse Oximetry Oxygen Delivery 07/18/23 10:17 07/18/23 08:00 07/18/23 12:00 Temperature 37.0 C Pulse Rate 85 78 Respiratory Rate 18 Blood Pressure 118/57 L Pulse Oximetry 95 Oxygen Delivery Room Air 07/18/23 12:00 Temperature 36.6 C Pulse Rate 78 Respiratory Rate 16 Blood Pressure 118/59 L Pulse Oximetry 96 Oxygen Delivery Intake/Output Intake/Output: Intake & Output 07/15/23 07/16/23 07/17/23 07/18/23 23:59 23:59 23:59 23:59 Intake Total 1580 960 500 480 Output Total 1175 850 550 Balance 405 110 500 -70 Meds/Results Medications: Active Medications Generic Name Dose Route Start Last Admin Trade Name Susan PRN Reason Stop Dose Admin Acetaminophen 650 mg 07/12/23 17:55 07/17/23 05:56 Acetaminophen 325 Mg Tablet PO 650 mg Q6H PRN Administration Mild Pain (1-3) or Fever Hydrocodone Bitart/Acetaminophen 1 tab 07/12/23 1
[2023-07-18 17:01] LABS: Glucose Point of Care 267 mg/dl (65-105)
[2023-07-18] MEDS: INSULIN ASPART (*BKC) 100 UNITS/ML SUB-Q (17:03)
[2023-07-18 19:55] LABS: Glucose Point of Care 245 mg/dl (65-105)
[2023-07-18] MEDS: traZODone HCL 50 MG TABLET 100 MG PO (20:54)
[2023-07-18] MEDS: ESCITALOPRAM OXALATE 10 MG TABLET 20 MG PO (20:54)
[2023-07-18] MEDS: METOPROLOL TARTRATE 50 MG TAB PO (20:55)
[2023-07-18] MEDS: INSULIN GLARGINE (*BKC) 100 UNITS/ML 26 UNITS SUB-Q (20:56)
[2023-07-19] VITALS (8 sets, daily range): BP systolic 118–125; BP diastolic 56–64; PULSE 71–86; RESP 16–18; TEMP 36.8–37.1; O2SAT 95–97
[2023-07-19 05:19] LABS: Basophils Absolute Auto 0.1 K/mm3 (0.0-0.1); Basophils Percent Auto 0.7 % (0.2-1.2); Eosinophils Absolute Auto 0.6 K/mm3 (0-0.3); Eosinophils Percent Auto 4.9 % (0-4.4); Hematocrit 29.7 % (37.0-47.0); Hemoglobin 9.2 g/dL (12.0-15.0); Immature Granulocyte Absolute 0.04 K/mm3 (0.00-0.031); Immature Granulocyte Percent A 0.3 % (0-0.5); Lymphocytes Absolute Auto 2.26 K/mm3 (0.9-3.2); Lymphocytes Percent Auto 18.5 % (18.3-44.2); Mean Corpuscular Volume 87.1 fl (80-100); Monocytes Absolute Auto 1.3 K/mm3 (0.1-0.6); Monocytes Percent Auto 10.5 % (2.6-8.5); Neutrophils Percent Auto 65.1 % (45.5-73.1); Platelet Count Result 524 k/mm3 (150-375); Red Blood Count 3.41 M/mm3 (4.2-5.4); Red Cell Distribution Width 15.9 % (11.5-14.5); White Blood Count 12.2 K/mm3 (4.5-10.0)
[2023-07-19 05:36] LABS: Anion Gap 5 mmol/L (4-12); Blood Urea Nitrogen 10 mg/dL (7-17); Carbon Dioxide 27 mmol/L (22-30); Chloride 107 mmol/L (98-107); Estimated CRCL calculation 54 ml/min; Estimated Glomerular Filt Rate > 60; Glucose 261 mg/dL (65-110); Potassium 4.3 mmol/L (3.4-5.0); Sodium 139 mmol/L (137-145)
--- NOTE | 2023-07-19 06:42 | ECG_ITS ---
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 Measurements Intervals [place] Rate: 76 P: 38 [place]: 195 QRS: -47 QRSD: 125 T: -78 QT: 482 QTc: 542 Interpretive Statements SINUS RHYTHM LEFT AXIS DEVIATION LEFT BUNDLE BRANCH BLOCK PROLONGED QT INTERVAL ABNORMAL ECG Compared to ECG 07/18/2023 09:07:30 NO SIGNIFICANT CHANGE Electronically Signed On 07-19-2023 09:25:56 CDT by Gallo Garza D.O.
--- NOTE | 2023-07-19 07:20 | PM.PNCARD ---
Progress Note: A&P Assessment and Plan (1) PAF (paroxysmal atrial fibrillation): Code(s): I48.0 - Paroxysmal atrial fibrillation Status: Acute Assessment and Plan: [id number] 4. Normally on Eliquis which is on hold due to anticipation of GI procedure, ERCP. Was in sinus rhythm and has been over a year since in atrial fib, just on Metoprolol. 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 Tristan with [facility]. Due to recurrence of atrial fib, increase Sotalol 80 mg PO every 12 hours, but QT interval prolonged likely due to interaction with Lexapro. Therefore Sotalol lowered to 40 mg every 12 hours. Persistent prolonged QT interval, therefore Sotalol stopped on 07/18/23. Check EKG. Restart Metoprolol Tartate at higher dose 50 mg BID. June d/c home from cardiology standpoint to f/u with her regular dairy equipment repairer, Dr. Tristan. (2) Bile leak, postoperative: Code(s): K91.89 - Other postprocedural complications and disorders of digestive system; K83.8 - Other specified diseases of biliary tract Status: Acute Assessment and Plan: Followed by GI and general surgery. (3) Hyperlipidemia: Qualifiers: Hyperlipidemia type: unspecified Qualified Code(s): E78.5 - Hyperlipidemia, unspecified Code(s): E78.5 - Hyperlipidemia, unspecified Status: Chronic Assessment and Plan: On Pravastatin. (4) Hypertension: Qualifiers: Hypertension type: essential hypertension Qualified Code(s): I10 - Essential (primary) hypertension Code(s): I10 - Essential (primary) hypertension Status: Chronic Assessment and Plan: Stable. (5) Fluid overload: Qualifiers: Hypervolemia type: other Qualified Code(s): E87.79 - Other fluid overload Code(s): E87.70 - Fluid overload, unspecified Status: Acute Assessment and Plan: Stable. Due to IVF and has diastolic dysfunction. Resolved with Bumex. Subjective Date/time seen: 07/19/23 07:20 Interval history: No chest pain or sob. Exam Const: General: cooperative, healthy appearing, comfortable and in distress Orientation/consciousness: oriented to person, oriented to place and oriented to time Resp: Auscultation: clear to auscultation bilaterally, no crackles, no rales, no rhonchi and no wheezes Cardio: Rate: regular rate Rhythm: regular rhythm Heart sounds: no murmurs Peripheral pulses: dorsalis pedis present Neuro: General: oriented to person, oriented to place and oriented to time Extrem: Right lower extremity: no edema Left lower extremity: no edema Objective Data Vital Signs Vital Signs: Vital Signs - 24 hr 07/18/23 08:47 07/18/23 08:00 07/18/23 10:17 Temperature 98.6 F Pulse Rate 88 84 85 Respiratory Rate 18 Blood Pressure 118/57 L Pulse Oximetry 95 Oxygen Delivery 07/18/23 08:00 07/18/23 12:00 07/18/23 15:00 Temperature 97.8 F Pulse Rate 78 78 Respiratory Rate 16 Blood Pressure 118/59 L Pulse Oximetry 96 Oxygen Delivery Room Air 07/18/23 16:00 07/18/23 19:30 07/18/23 20:55 Temperature 98.5 F Pulse Rate 83 84 84 Respiratory Rate 16 Blood Pressure 118/54 L Pulse Oximetry 97 Oxygen Delivery 07/19/23 00:00 07/18/23 20:00 07/19/23 00:00 Temperature 98.7 F Pulse Rate 86 80 76 Respiratory Rate 18 Blood Pressure 120/56 L Pulse Oximetry 95 Oxygen Delivery 07/19/23 04:39 07/19/23 04:00 Temperature 98.3 F Pulse Rate 75 81 Respiratory Rate 16 Blood Pressure 120/61 Pulse Oximetry 95 Oxygen Delivery Intake/Output Intake/Output: Intake & Output 07/16/23 07/17/23 07/18/23 07/19/23 23:59 23:59 23:59 23:59 Intake Total 240 359 1517 Output Total 850 1150 Balance 110 500 -70 Meds/Results Medications: Active Medications Generic Name Dose Route Start Last Admin Trade Name Freq PRN Reason Stop Dose Admin Acetaminophen 650 mg 07/12/23 17:55 07/17/23 05:56 Ac
[2023-07-19 08:00] LABS: Glucose Point of Care 196 mg/dl (65-105)
[2023-07-19] MEDS: AMOXICILLIN/CLAVULANATE K 875-125 MG TAB 1 TABLET PO (09:05)
[2023-07-19] MEDS: GABAPENTIN 300 MG CAPSULE PO (09:05)
[2023-07-19] MEDS: POTASSIUM CHLORIDE 20 MEQ ER TABLET 40 MEQ PO (09:05)
[2023-07-19] MEDS: DOCUSATE SODIUM 100 MG CAPSULE PO (09:05)
[2023-07-19] MEDS: lisinopriL 10 MG TABLET PO (09:05)
[2023-07-19] MEDS: busPIRone HCL 5 MG TABLET PO (09:05)
[2023-07-19] MEDS: APIXABAN 5 MG TABLET PO (09:05)
[2023-07-19] MEDS: PANTOPRAZOLE 40 MG TABLET PO (09:05)
[2023-07-19] MEDS: METOPROLOL TARTRATE 50 MG TAB PO (09:05)
[2023-07-19] MEDS: TOLNAFTATE 1% POWDER 45 GM BTL 1 APPLIC TOPICAL (09:07)
--- NOTE | 2023-07-19 10:44 | PCNWS ---
Weekly nutritional screen. Patient is tolerating current Low fat diet with adequate intake, intakes 50-100%. No weight loss reported. No nutritional needs at this time.
--- NOTE | 2023-07-19 11:54 | PM.DS ---
DS: Admitting Diagnosis Discharge Date 07/19/2023 Admitting Diagnosis Abdominal pain DS: Discharge Diagnosis Discharge Diagnosis (1) Bile leak, postoperative: Code(s): K91.89 - Other postprocedural complications and disorders of digestive system; K83.8 - Other specified diseases of biliary tract Status: Acute (2) Peritonitis: Code(s): K65.9 - Peritonitis, unspecified Status: Acute (3) S/P laparoscopic cholecystectomy: Code(s): Z90.49 - Acquired absence of other specified parts of digestive tract Status: Acute (4) PAF (paroxysmal atrial fibrillation): Code(s): I48.0 - Paroxysmal atrial fibrillation Status: Acute (5) Acute encephalopathy: Code(s): G93.40 - Encephalopathy, unspecified Status: Acute (6) SIRS (systemic inflammatory response syndrome): Code(s): R65.10 - Systemic inflammatory response syndrome (SIRS) of non-infectious origin without acute organ dysfunction Status: Acute (7) Insulin dependent diabetes mellitus: Status: Chronic (8) Hypertension: Qualifiers: Hypertension type: essential hypertension Qualified Code(s): I10 - Essential (primary) hypertension Code(s): I10 - Essential (primary) hypertension Status: Chronic (9) Acute hypoxic respiratory failure: Code(s): J96.01 - Acute respiratory failure with hypoxia Status: Acute (10) Anemia: Code(s): D64.9 - Anemia, unspecified Status: Acute DS: Summary Hospital Course Hospital Course: # Bile leak after a cholecystectomy.? Abdomen/pelvis CT shown a small amount amorphous fluid in the gallbladder fossa and tiny bubble free air as well as small amount of pelvic ascites are present which are likely normal postoperative changes however developing abscess or bile leak cannot be completely excluded. Hepatobiliary scan on 07/04 demonstrating bile leak -ERCP performed on 07/07 with collection of washings, sphincterotomy/papillotomy, endoscopic stent into bile duct. Will need ERCP again in 2 months to remove stent -Surgical exploration on 07/09 with removal of approx 500mL of bile. The VPS was visualized coursing to the pelvis. She is recovering well. Up ambulating and improving will arrange for home health at discharge # Peritonitis (Acute): Peritonitis status post bile stent, patient taken down for paracentesis but negligible ascites was observed. Abd pain improved after washout WBC up and down but around 12-15K.? Procalcitonin low. PharmD ID discussed with General Surgery and abx adjusted to levaquin but can interact with Sotalol No cultures.? Levaquin changed to Augmentin.? Completed antibiotic course during the hospital stay # S/P laparoscopic cholecystectomy (Acute): Patient seen here on June 26 for epigastric pain and found to have probable acute cholecystitis. Pain was pleuritic. She was discharged and followed with GenSurg for elective cholecystectomy 07/02. Her port site incisions look good. She was having pleuritic substernal localized pain felt related to above. Management per General surgery.? We resumed her Eliquis since Hgb stable but now dropped from 10.6 to 9.1. Will follow # PAF (paroxysmal atrial fibrillation) (Acute): Patient with a hx of AFib. Recurrent AFib with RVR likely due to her acute stress and hypovolemia.? She was uncontrolled so Cardiology was consulted. Metoprolol stopped and cardiology started sotalol. Serial EKG checks per Cardiology. [id number] at least 6. She is in and out of sinus rhythm.? Does well with sotalol 80 mg but then her QTC goes too high.? Lexapro likely interacting as well. on 07/17 cardiology recommend being sotalol back down to 40 mg p.o. b.i.d..? Also adding diltiazem 30 mg q.4 hours to help rate control.? Continue EKG for QTC check. Back on metoprolol due to prolonged QTC. Converted back to sinus rhythm by the time of discharge She takes apixaban at home which has been resumed Continue tele # Acu
[2023-07-19 11:58] LABS: Glucose Point of Care 206 mg/dl (65-105)
[2023-07-19] MEDS: INSULIN ASPART (*BKC) 100 UNITS/ML SUB-Q (12:17)
== END 2023-07-19 15:45 | disposition home health service (06) | DRG 356 ==
LOC: ANHED 14:01 → ANH2MED 16:21 → ANHIMU 07-07 20:24 → ANH2MED 07-15 14:54
PROVIDERS: Internal Medicine; Internal Medicine Gastroenterology; Nurse Practitioner Acute Care; Physician Assistant; Surgery; Admitting Provider General Practice; Emergency Provider Emergency Medicine; PCP Clinical Nurse Specialist; Visit Provider Internal Medicine
PROC: 0F9980Z Drainage of Common Bile Duct with Drainage Device, Via Natural or Artificial Opening Endoscopic (ICD-10-PCS; CPT 43260; principal; 2023-07-08 11:30)
PROC: 0W9G4ZZ Drainage of Peritoneal Cavity, Percutaneous Endoscopic Approach (ICD-10-PCS; CPT 49320; principal; 2023-07-09 14:30)
DX: K91.89 Other postprocedural complications and disorders of digestive system (principal); G92.8 Other toxic encephalopathy; K65.3 Choleperitonitis; J96.01 Acute respiratory failure with hypoxia; K83.8 Other specified diseases of biliary tract; Y83.8 Other surgical procedures as the cause of abnormal reaction of the patient, or of later complication, without mention of misadventure at the time of the procedure; I48.0 Paroxysmal atrial fibrillation; F32.9 Major depressive disorder, single episode, unspecified; E11.40 Type 2 diabetes mellitus with diabetic neuropathy, unspecified; B36.9 Superficial mycosis, unspecified; E78.5 Hyperlipidemia, unspecified; T40.2X1A Poisoning by other opioids, accidental (unintentional), initial encounter; T42.4X1A Poisoning by benzodiazepines, accidental (unintentional), initial encounter; T45.0X1A Poisoning by antiallergic and antiemetic drugs, accidental (unintentional), initial encounter; F41.9 Anxiety disorder, unspecified; I10 Essential (primary) hypertension; K58.9 Irritable bowel syndrome, unspecified; J45.909 Unspecified asthma, uncomplicated; Z90.49 Acquired absence of other specified parts of digestive tract; Z87.891 Personal history of nicotine dependence; Z86.718 Personal history of other venous thrombosis and embolism; Z86.73 Personal history of transient ischemic attack (TIA), and cerebral infarction without residual deficits; Z79.84 Long term (current) use of oral hypoglycemic drugs; Z79.01 Long term (current) use of anticoagulants; Z79.4 Long term (current) use of insulin; I25.10 Atherosclerotic heart disease of native coronary artery without angina pectoris; G47.00 Insomnia, unspecified; Z98.2 Presence of cerebrospinal fluid drainage device; E87.6 Hypokalemia; E87.70 Fluid overload, unspecified; D64.9 Anemia, unspecified
CPT/HCPCS: 36415; 70460; 71045; 74177; 74329; 76705; 78226; 80048; 80053; 81003; 82948; 83036; 83605; 83690; 83735; 83880; 84100; 84145; 84484; 85025; 85027; 85610; 86140; 87040; 93005; 93306; 94640; 96361; 96374; 96375; 96376; 97110; 97116; 97162; 97166; 97530; 97535; 99285; A9270; A9537; C9113; G0378; J0330; J1100; J1170; J1200; J1741; J1815; J1836; J1885; J1939; J1940; J2060; J2405; J2543; J2704; J3010; J3475; J3480; J7030; J7040; J7120; J7121; Q9957; Q9966; Q9967

== ENCOUNTER 2023-07-25 17:15 | Emergency (ER) | payer MEDICARE, SELFPAY ==
--- NOTE | ~2023-07-25 | CT_ITS ---
CTA chest PE protocol Ordering provider: Char Donahue MD History: 73 years Female with . SOB; recent surg; elev dimer . Comparison: June 27, 2023 Technique: CT angiogram chest was performed following timed intravenous injection of contrast. Thin s lice axial images and reformatted coronal images were obtained. Three dimensional reformatted images of the chest were also obtained using a [employer] workstation. Radiation reduction technique utilized. Findings: PULMONARY ARTERIES: No pulmonary embolus. VISUALIZED THORACIC INLET: Normal. MEDIASTINUM: Aorta/coronary arteries: Mild atheromatous disease. Heart/other: The heart is not enlarged. Lymph nodes: No mediastinal or hilar adenopathy. LUNGS: Minimal left pleural effusion with adjacent atelectasis. No pulmonary nodules or masses. No infiltrat e or pneumothorax. VISUALIZED UPPER ABDOMEN: Biliary stent is noted. Status post cholecystectomy. Atrophic pancreas. Duo denal diverticulum. Small left adrenal adenoma measuring 1.7 cm. Otherwise, the visualized upper abdo men is normal. MUSCULOSKELETAL: Soft tissues: The superficial soft tissues are normal. Bones: Age appropriate degenerative changes of the spine. IMPRESSION: 1. No pulmonary embolism. 2. Left pleural effusion with adjacent atelectasis. 3. Small left adrenal adenoma. Most likely benign if clinically warranted MRI is advised. Reviewed, dictated and finalized at location A.
--- NOTE | ~2023-07-25 | XR_ITS ---
XR chest 1V portable Ordering provider: Char Donahue MD History: 73 years Female with . SOB after surgery; c/f PNA . Comparison: July 17, 2023 FINDINGS: MEDIASTINUM: The cardiac silhouette is not enlarged. Left shunt tube is noted. LUNGS: No infiltrates, effusions or pneumothorax. Prominent markings in the right lower lobe. Early p neumonia cannot be excluded. OTHER: No free air under the diaphragm. IMPRESSION: No definite acute cardiopulmonary pathology.Prominent markings in the right lower lobe. Early pneumon ia cannot be excluded. Left Shunt tube unchanged. Reviewed, dictated and finalized at location A. IMPRESSION: No definite acute cardiopulmonary pathology.Prominent markings in the right low er lobe. Early pneumonia cannot be excluded. Left Shunt tube unchanged.
[2023-07-25 17:19] VITALS: BP 114/62; PULSE 89; RESP 22; TEMP 36.7; O2SAT 100
[2023-07-25 17:24] VITALS: O2SAT 100
--- NOTE | 2023-07-25 17:47 | ECG_ITS ---
[facility] [address] Test Date: 2023-07-25 Pat Name: Alicia Del Toro Department: Room: Gender: F Mold Parter: : 1950 Requested By: Char Barrientos Order Number: [id number] Marycruz MD: Carl Nicolas M.D. Measurements Intervals [place] Rate: 82 P: 54 [place]: 225 QRS: -61 QRSD: 132 T: 244 QT: 509 QTc: 595 Interpretive Statements SINUS RHYTHM WITH FIRST DEGREE AV BLOCK INCOMPLETE LEFT BUNDLE BRANCH BLOCK LONG QT INTERVAL NONSPECIFIC T-WAVE ABNORMALITY ABNORMAL ECG Compared to ECG 07/19/2023 07:22:28 NO SIGNIFICANT CHANGE Electronically Signed On 07-26-2023 08:58:05 CDT by Carl Nicolas M.D.
--- NOTE | 2023-07-25 17:47 | ED.SOB ---
HPI - SOB/Dyspnea General Chief Complaint: Shortness of Breath/Dyspnea Stated Complaint: SOB Time Seen by Provider: 07/25/23 17:35 Source: patient and family (brother, daughter) Limitations: no limitations History of Present Illness HPI Narrative: Patient presents with shortness of breath, worse with inspiration. She had gallbladder surgery 2 weeks ago with post operative complications. She denies any chest pain. She has had a cough. No fever but does feel constantly chilled. She is on Elliquis 5mg BID for unknown reasons although possibly because 40 years ago she was found to have a DVT behind her L knee for which she had been on heparin initially at that time. States history of AL without stent. Feels nauseated without vomiting. History of HTN. Non smoker. Related Data Home Medications Medication Instructions Recorded Confirmed apixaban 5 mg tablet (Eliquis) 5 mg PO BID 01/21/20 07/05/23 cetirizine 10 mg capsule (Zyrtec) 10 mg PO DAILY 04/15/23 07/05/23 empagliflozin 25 mg tablet 25 mg PO DAILY 04/15/23 07/05/23 (Jardiance) insulin aspart U-100 100 unit/mL 5 unit subcut AC 04/15/23 07/05/23 (3 mL) subcutaneous pen (Novolog FlexPen U-100 Insulin aspart) insulin degludec 200 unit/mL (3 26 unit subcut QPM 04/15/23 07/05/23 mL) subcutaneous pen (Tresiba FlexTouch U-200 insulin) vibegron 75 mg tablet (Gemtesa) 75 mg PO DAILY 04/15/23 07/05/23 escitalopram oxalate 20 mg tablet 20 mg PO HS 04/27/23 07/05/23 Allergies Allergy/AdvReac Type Severity Reaction Status Date / Time adhesive tape Allergy Intermediate Blister Verified 07/25/23 17:26 hydromorphone [From Dilaudid] Allergy Intermediate Itching Verified 07/25/23 17:26 morphine Allergy Intermediate Itching Verified 07/25/23 17:26 [facility] Past Medical History Medical History (Updated 07/26/23 @ 00:00 by Background Daemon) A-fib Allergies Anxiety Arthritis Asthma Back injury L5 SI injection Back pain Brain bleed (2) CAD (coronary artery disease) Colon polyps Costochondritis Depression Diabetic neuropathy DVT (deep venous thrombosis) (~1979) LLE Generalized pruritus Hyperlipidemia Hypertension IBS (irritable bowel syndrome) Insomnia Leukocytosis Obesity Osteopenia Postmenopausal Thyroid disorder TIA (transient ischemic attack) Trigeminal neuropathy Type 2 diabetes mellitus Urinary incontinence Visceral hypersensitivity syndrome Surgical History Surgical History (Updated 07/27/23 @ 11:10 by Char Donahue MD) H/O foot surgery Left and right H/O knee surgery Left H/O: hysterectomy History of back surgery History of surgery of head placement of shunt Hx laparoscopic cholecystectomy 06/2023 complicated by bile leak, bile peritonitis Family History Family History (Updated 07/27/23 @ 11:15 by Char Donahue MD) Mother , unknown cause Muscular dystrophy Father Carcinoma of colon Grandparent Acute myocardial infarction Ruptured appendix Sibling Acute myocardial infarction <65yo Social History Social History Smoking packs per day: 0.75 Smoking cigarettes per day: 15.0 Years smoked: 5 Smoking pack-years: 3.75 Smoking status: Former smoker Second hand tobacco smoke exposure: Yes Additional smoking assessment comments: DENIES ANY FORM OF TOBACCO USE Alcohol intake: never Substance use: never Do You Feel Safe in your Home?: Yes Lack of Transportation: No Lack of Food: Never True Current Housing: I Have Housing Concerned About Future Housing: No Difficulty Paying Gas/Electric Bills: No Difficulty Paying for Meds: No Currently Unemployed: No Education: High School Diploma/GED Difficulty w/ Childcare or Family Care: No Living arrangements: alone Occupation/Education: retired Spiritual care concerns: No Exam Narrative: GENERAL: Well-appearing, well-nourished, and in no acute distress
[2023-07-25 18:48] LABS: Alveolar/Arterial O2 Gradient 18.7 mmHg; Base Excess ABG -1.9 mEq/l (+/-2.0); Fractional Inspired Oxygen 21 %; HCO3 ABG 16.9 mEq/l (22.0-26.0); Oxygen Content ABG 14.2 %vol (16.0-22.0); Oxygen Saturation ABG 98.9 % (95.0-100.0); Oxyhemoglobin 98.4 % THb (90.0-100.0); PO2 ABG 112.6 mmHg (80.0-100.0); PO2 FiO2 Ratio Arterial Blood 5.36 %; Total Hemoglobin 10.1 g/dL (12.0-18.0)
[2023-07-25 18:58] LABS: Basophils Absolute Auto 0.1 K/mm3 (0.0-0.1); Basophils Percent Auto 0.6 % (0.2-1.2); Eosinophils Absolute Auto 0.5 K/mm3 (0-0.3); Eosinophils Percent Auto 5.9 % (0-4.4); Hematocrit 31.9 % (37.0-47.0); Hemoglobin 9.9 g/dL (12.0-15.0); Immature Granulocyte Absolute 0.02 K/mm3 (0.00-0.031); Immature Granulocyte Percent A 0.2 % (0-0.5); Lymphocytes Absolute Auto 1.98 K/mm3 (0.9-3.2); Lymphocytes Percent Auto 22.4 % (18.3-44.2); Mean Corpuscular Hemoglobin 26.5 pg (26-34); Mean Corpuscular Volume 85.3 fl (80-100); Mean Platelet Volume 10.2 fl (7.4-10.4); Monocytes Absolute Auto 0.8 K/mm3 (0.1-0.6); Monocytes Percent Auto 8.9 % (2.6-8.5); Neutrophils Absolute Auto 5.5 K/mm3 (1.3-6.7); Platelet Count Result 418 k/mm3 (150-375); Red Blood Count 3.74 M/mm3 (4.2-5.4); Red Cell Distribution Width 15.3 % (11.5-14.5); White Blood Count 8.9 K/mm3 (4.5-10.0)
[2023-07-25 18:59] LABS: Modified Allen's Test Pass; PCO2 ABG 15.4 mmHg (35.0-45.0); Site Drawn RIGHT RADIAL; pH ABG 7.657 (7.350-7.450)
--- NOTE | 2023-07-25 18:59 | PC.NURSE ---
IV and blood draw attempted multiple times since patient arrived to ed, multiple staff including nurses and technicians attempted. patient stated that she required ultrasound iv placement. more attempts were made, and Kelly CARPENTER was finally able to get iv and labs drawn.
[2023-07-25 19:02] LABS: Influenza A QL RT-PCR Negative (Negative); Influenza B QL RT-PCR Negative (Negative); RSV RNA, RT-PCR Negative (Negative); SARS-CoV-2 RNA PCR Negative (Negative)
[2023-07-25 19:12] LABS: Alanine Aminotransferase 13 U/L (6-35); Albumin Level 3.5 g/dL (3.5-5.1); Alkaline Phosphatase 140 U/L (38-126); Anion Gap 10 mmol/L (4-12); Aspartate Amino Transferase 26 U/L (14-36); Bilirubin,Total 0.5 mg/dL (0.2-1.3); Blood Urea Nitrogen 14 mg/dL (7-17); Calcium 8.4 mg/dL (8.4-10.2); Carbon Dioxide 22 mmol/L (22-30); Chloride 110 mmol/L (98-107); Estimated CRCL calculation 60 ml/min; Estimated Glomerular Filt Rate > 60; Glucose 159 mg/dL (65-110); Magnesium 1.9 mg/dL (1.6-2.3); Potassium 3.5 mmol/L (3.4-5.0); Sodium 142 mmol/L (137-145)
[2023-07-25 19:20] LABS: INR 1.5; Prothrombin Time 18.9 Seconds (11.1-14.7)
[2023-07-25 19:21] LABS: Partial Thromboplastin Time 42.3 Seconds (22.3-36.8)
[2023-07-25 19:23] LABS: NT Pro B Type Natriuretic Pept 2460 pg/mL (19.9-100); Troponin I < 0.012 ng/mL (0.000-0.034)
[2023-07-25 19:33] LABS: D Dimer 2.77 ug/mL (<0.48)
[2023-07-25] MEDS: MAGNESIUM SULF 1 GM/D5W 100 ML 1 GM/100 ML BAG IVPB (19:37)
[2023-07-25 21:05] LABS: Acetaminophen < 10 ug/mL (10-30)
[2023-07-25] MEDS: ACETAMINOPHEN 500 MG TABLET 1000 MG PO (22:21)
[2023-07-25] MEDS: FUROSEMIDE INJ 40 MG/4 ML VIAL IV PUSH (22:21)
== END 2023-07-25 23:40 | disposition home or self-care (01) ==
PROVIDERS: Emergency Provider Student in an Organized Health Care Education/Training Program; PCP Clinical Nurse Specialist
DX: J90 Pleural effusion, not elsewhere classified (principal); I44.0 Atrioventricular block, first degree; D35.02 Benign neoplasm of left adrenal gland; D75.839 Thrombocytosis, unspecified; D64.9 Anemia, unspecified; R79.89 Other specified abnormal findings of blood chemistry; R74.8 Abnormal levels of other serum enzymes; Z98.890 Other specified postprocedural states; Z20.822 Contact with and (suspected) exposure to COVID-19; I48.91 Unspecified atrial fibrillation; I25.10 Atherosclerotic heart disease of native coronary artery without angina pectoris; I25.2 Old myocardial infarction; I10 Essential (primary) hypertension; J45.909 Unspecified asthma, uncomplicated; E11.40 Type 2 diabetes mellitus with diabetic neuropathy, unspecified; E07.9 Disorder of thyroid, unspecified; E66.9 Obesity, unspecified; Z68.30 Body mass index [BMI] 30.0-30.9, adult; M19.90 Unspecified osteoarthritis, unspecified site; M85.80 Other specified disorders of bone density and structure, unspecified site; R32 Unspecified urinary incontinence; Z86.73 Personal history of transient ischemic attack (TIA), and cerebral infarction without residual deficits; Z86.718 Personal history of other venous thrombosis and embolism; Z87.891 Personal history of nicotine dependence; Z90.710 Acquired absence of both cervix and uterus; Z90.49 Acquired absence of other specified parts of digestive tract; Z79.84 Long term (current) use of oral hypoglycemic drugs; Z79.01 Long term (current) use of anticoagulants; Z79.4 Long term (current) use of insulin
CPT/HCPCS: 36415; 36600; 71045; 71275; 80053; 80307; 82805; 83735; 83880; 84443; 84484; 85025; 85380; 85610; 85730; 87637; 93005; 96365; 96366; 96375; 99284; A9270; J1940; J3475; Q9967

== ENCOUNTER 2023-07-28 16:43 | Inpatient (IN) | payer MEDICARE, SELFPAY ==
[2023-07-28] VITALS (25 sets, daily range): BP systolic 84–137; BP diastolic 42–98; PULSE 79–125; RESP 15–25; TEMP 36.7–39; O2SAT 92–100; BMI 29.8
--- NOTE | ~2023-07-28 | XR_ITS ---
Portable chest x-ray Comparison: 07/28/2023 at 5:26 PM Clinical History: Line placement Findings: Right-sided central venous line is in place, tip probably in the right atrium. PARTS IDENTIFICATION TECHNICIAN shunt un changed. There is mild central congestive change in the lungs. Cardiomediastinal silhouette is stabl e. Bones and soft tissues are unremarkable. Impression: Support line, as above. Mild central congestive changes. Reviewed, dictated and finalized at location . Impression: Support line, as above. Mild central congestive changes.
--- NOTE | ~2023-07-28 | XR_ITS ---
EXAMINATION: XR ERCP DATE: 07/30/2023 11:40 CDT INDICATION: GALLSTONES, STENT REMOVAL . TECHNIQUE: 2 fluoroscopic images of the right upper quadrant were obtained during ERCP, stent removal , performed by Dr. Osborn. I was not present during the procedure. Fluoroscopy exposure time was seconds. Air Kerma 33.79 mGy. DAP 1.04 mGym2. COMPARISON: 07/08/2023; CT cap 07/28/2023 FINDINGS/IMPRESSION: Fluoroscopic documentation of ERCP, stent removal. Please refer to the operative note for complete pr ocedural details. Reviewed, dictated and finalized at location K.
--- NOTE | ~2023-07-28 | XR_ITS ---
Portable chest x-ray Comparison: 07/25/2023 Clinical History: Fever Findings: Questionable minimal haziness right lung base. Left lung clear. Stable support line. Card iomediastinal silhouette is stable. Bones and soft tissues are unremarkable. Impression: Questionable minimal haziness right lung base. Correlate for minimal pneumonia. Stable support line. Reviewed, dictated and finalized at [facility]. Impression: Questionable minimal haziness right lung base. Correlate for minimal pneumonia. Stable support line.
--- NOTE | ~2023-07-28 | XR_ITS ---
XR chest 1V portable Ordering provider: Rene Villavicencio MD History: 73 years Female with . reposition central line . Comparison: July 28, 2023 FINDINGS: MEDIASTINUM: The cardiac silhouette is not enlarged. Right central line with the tip overlying superi or vena cava. Left INSTRUMENTAL TEACHER shunt is noted. LUNGS: No infiltrates, effusions or pneumothorax. Prominent markings in the lower lobes. OTHER: No free air under the diaphragm. IMPRESSION: A right central line with the tip overlying superior vena cava. No other significant change from previous examination. Reviewed, dictated and finalized at location A.
--- NOTE | ~2023-07-28 | CT_ITS ---
Clinical Indication: Pneumonia, abdominal pain CT Scan of the Chest, Abdomen, and Pelvis with Contrast: Technique: Contiguous sections were acquired throughout the chest, abdomen, and pelvis after intraven ous administration of 100 cc of Omnipaque 350. Dose reduction technique was used on this scan by uti lizing automated exposure control and iterative reconstruction technique. The dose-length product (DL P) was 976.07 mGy-cm. COMPARISON: 07/25/2023, 07/07/2023 Findings: There is no evidence of any significant mediastinal, hilar or axillary lymphadenopathy. The mediastin al soft tissues and vascular structures appear normal. There is minimal left pleural fluid. No right pleural effusion. No pericardial effusion. The lungs are clear. No pulmonary nodules or infiltrates are noted. Cholecystectomy clips are present. Common bile duct stent is present. Small amount of air present per ipherally in the upper right hepatic lobe. This could reflect pneumobilia versus parenchymal air. The re is suggestion of some subtle hypodensity surrounding this region, nonspecific. There is a 1.6 cm f luid collection in the gallbladder fossa, decreased from prior exam. Main pancreatic duct stent is al so in place. The spleen, pancreas, adrenals and kidneys are otherwise within normal limits. No evide nce of aortic aneurysm. No lymphadenopathy. No bowel obstruction or bowel wall thickening. There is no evidence to suggest acute appendicitis. Urinary bladder is unremarkable. No pelvic mass seen. Trace pelvic ascites present. PV DESIGN AND INSTALLATION TECHNICIAN shunt present. Impression: New small amount of air peripherally in the upper right hepatic lobe, unclear whether this is pneumob madelaine versus parenchymal air. There is also suggestion of subtle ill-defined parenchymal hypodensity s urrounding the air in this region. Infective cholangitis/hepatitis is a consideration in this region. Decreasing fluid collection to gallbladder fossa, now measuring 1.6 cm in diameter. Common bile duct and main pancreatic stents in place. Trace pelvic ascites, likely related to PV DESIGN AND INSTALLATION TECHNICIAN shunt. Reviewed, dictated and finalized at location M. Impression: New small amount of air peripherally in the upper right hepatic lobe, unclear w hether this is pneumobilia versus parenchymal air. There is also suggestion of subtle ill-defined parenchymal hypodensity surrounding the air in this region. Infective cholangitis/hepatitis is a consideration in this region. Decreasing fluid collection to gallbladder fossa, now measuring 1.[address] Common bile duct and main pancreatic stents in place. Trace pelvic ascites, likely related to PV DESIGN AND INSTALLATION TECHNICIAN shunt.
--- NOTE | ~2023-07-28 | CT_ITS ---
CT of the Abdomen and Pelvis: Indication: Abdominal pain Technique: 2.5 mm axial scans were obtained through the abdomen and pelvis following intravenous adm inistration of 100 cc of Omnipaque 350. Dose reduction technique was used on this scan by utilizing a utomated exposure control and iterative reconstruction technique. The dose-length product (DLP) was 1 138.60 mGy-cm. COMPARISON: 07/28/2023 Findings: Scans through the lung bases demonstrate partially imaged small to moderate bilateral pleu ral effusions with mild bibasilar atelectasis. There are 2 focal probable air-fluid collections in the right hepatic lobe to the dome the liver, sma ll air-fluid levels present (axial images 31, 38), similar to prior exam. Status post cholecystectomy . Continued decrease of small fluid collection at the gallbladder fossa region. Previously noted panc reatic duct and common bile duct stents are no longer present. The spleen, pancreas, gallbladder, adr enals and kidneys are within normal limits. No evidence of aortic aneurysm. No lymphadenopathy. No bowel obstruction or bowel wall thickening. There is no evidence to suggest acute appendicitis. Images through the pelvis were performed. Air present in urinary bladder. No pelvic mass seen. Small amount of abdominopelvic ascites present, presumably related to FUEL CELL BINDER shunt present. Impression: 2 persistent areas of focal, parenchymal air-fluid collections towards the dome of the liver, similar to prior exam. Focal hepatic abscesses are suspected, versus possibly other postprocedural or iatrog enic change. Continued mild decrease of small fluid collections the gallbladder fossa region. Small amount of abdominopelvic ascites, related to FUEL CELL BINDER shunt presumably. Air in urinary bladder is presumably related to recent instrumentation. Reviewed, dictated and finalized at [facility]. Impression: 2 persistent areas of focal, parenchymal air-fluid collections towards the dome of the liver, similar to prior exam. Focal hepatic abscesses are suspected, ve rsus possibly other postprocedural or iatrogenic change. Continued mild decrease of small fluid collections the gallbladder fossa region . Small amount of abdominopelvic ascites, related to FUEL CELL BINDER shunt presumably. Air in urinary bladder is presumably related to recent instrumentation.
--- NOTE | ~2023-07-28 | XR_ITS ---
EXAMINATION: XR abdomen/kub 1V DATE: 08/06/2023 13:19 INDICATION: Abdominal pain and distention. TECHNIQUE: A supine view of the abdomen on 2 radiographs was obtained. COMPARISON: CT abdomen and pelvis 08/02/2023 FINDINGS: There are no dilated loops of bowel. There is a small volume of stool in the colon. There a re changes of anterior posterior fusion procedures at L5-S1. Surgical clips in the right upper quadra nt are likely from cholecystectomy. There is a left-sided ventriculoperitoneal shunt. IMPRESSION: 1. Normal bowel gas pattern. Reviewed, dictated and finalized at location E.
--- NOTE | ~2023-07-28 | US_ITS ---
Limited ABDOMINAL ULTRASOUND ( Ordering provider: Abbey Garrett PA-C History: . TRANSFERRER Shunt . Comparison: None. FINDINGS/impression: No ascitic fluid is seen. Bilateral pleural effusion. Reviewed, dictated and finalized at location A.
--- NOTE | 2023-07-28 17:02 | ECG_ITS ---
[facility] [address] Test Date: 2023-07-28 Pat Name: Alicia Del Toro Department: Room: Gender: F Template Inspector: : 1950 Requested By: Shukri Hoffman Order Number: [id number] Marycruz MD: Carl Nicolas M.D. Measurements Intervals [place] Rate: 91 P: 68 RI: 210 QRS: -58 QRSD: 131 T: 261 QT: 467 QTc: 575 Interpretive Statements SINUS RHYTHM WITH FIRST DEGREE AV BLOCK INCOMPLETE LEFT BUNDLE BRANCH BLOCK LONG QT INTERVAL NONSPECIFIC T-WAVE ABNORMALITY ABNORMAL ECG Compared to ECG 07/25/2023 17:20:56 NO DIFFERENCE Electronically Signed On 07-29-2023 08:05:58 CDT by Carl Nicolas M.D.
[2023-07-28] MEDS: ACETAMINOPHEN 500 MG TABLET 1000 MG PO (17:31)
[2023-07-28] MEDS: SODIUM CHLORIDE 0.9% IV 1,000 ML 999 ML IV CONT (17:31)
[2023-07-28 17:43] LABS: Basophils Absolute Auto 0.1 K/mm3 (0.0-0.1); Basophils Percent Auto 0.3 % (0.2-1.2); Eosinophils Percent Auto 0.1 % (0-4.4); Hematocrit 30.8 % (37.0-47.0); Hemoglobin 9.9 g/dL (12.0-15.0); Immature Granulocyte Absolute 0.07 K/mm3 (0.00-0.031); Immature Granulocyte Percent A 0.4 % (0-0.5); Lymphocytes Absolute Auto 0.52 K/mm3 (0.9-3.2); Mean Corpuscular HGB Conc 32.1 g/dl (32-36); Mean Corpuscular Hemoglobin 26.6 pg (26-34); Mean Corpuscular Volume 82.8 fl (80-100); Mean Platelet Volume 10.7 fl (7.4-10.4); Neutrophils Absolute Auto 15.5 K/mm3 (1.3-6.7); Neutrophils Percent Auto 90.2 % (45.5-73.1); Platelet Count Result 322 k/mm3 (150-375); Red Blood Count 3.72 M/mm3 (4.2-5.4); White Blood Count 17.2 K/mm3 (4.5-10.0)
[2023-07-28 17:55] LABS: Lipase 49 U/L (23-300); Magnesium 1.8 mg/dL (1.6-2.3)
[2023-07-28 17:55] LABS: Alanine Aminotransferase 17 U/L (6-35); Albumin Level 3.5 g/dL (3.5-5.1); Alkaline Phosphatase 174 U/L (38-126); Anion Gap 7 mmol/L (4-12); Aspartate Amino Transferase 33 U/L (14-36); Blood Urea Nitrogen 22 mg/dL (7-17); Calcium 8.6 mg/dL (8.4-10.2); Carbon Dioxide 23 mmol/L (22-30); Chloride 104 mmol/L (98-107); Estimated CRCL calculation 60 ml/min; Estimated Glomerular Filt Rate > 60; Glucose 153 mg/dL (65-110); Potassium 3.7 mmol/L (3.4-5.0); Sodium 134 mmol/L (137-145)
[2023-07-28 18:00] LABS: INR 1.8; Partial Thromboplastin Time 41.7 Seconds (22.3-36.8); Prothrombin Time 21.1 Seconds (11.1-14.7)
[2023-07-28 18:02] LABS: Lactic Acid Reflex 1.7 mmol/L (0.7-2.0)
[2023-07-28 18:20] LABS: Influenza A QL RT-PCR Negative (Negative); Influenza B QL RT-PCR Negative (Negative); RSV RNA, RT-PCR Negative (Negative); SARS-CoV-2 RNA PCR Negative (Negative)
[2023-07-28 18:25] LABS: Thyroid Stimulating Hormone Reflex 0.953 uIU/mL (0.465-4.68)
--- NOTE | 2023-07-28 18:49 | ED.GENADULT ---
HPI - General Adult General Chief complaint: Fever Stated complaint: NAUSEA Time Seen by Provider: 07/28/23 17:02 History of Present Illness HPI narrative: This is a 73-year-old female presenting with chief complaint of fever. Patient seen here 2 days ago for not feeling well and had a negative workup. However since then she went home she has continued to have fevers/nausea/vomiting/diarrhea. She denies cough, chest pain. She notes diffuse abdominal tenderness. She denies urinary symptoms. Patient lives at home alone after her . She requires a large amount of help from family members due to her limited function. Both the patient and her family think that she is no longer capable of living at home in her current condition. Related Data Home Medications Medication Instructions Recorded Confirmed apixaban 5 mg tablet (Eliquis) 5 mg PO BID 01/21/20 07/05/23 cetirizine 10 mg capsule (Zyrtec) 10 mg PO DAILY 04/15/23 07/05/23 empagliflozin 25 mg tablet 25 mg PO DAILY 04/15/23 07/05/23 (Jardiance) insulin aspart U-100 100 unit/mL 5 unit subcut AC 04/15/23 07/05/23 (3 mL) subcutaneous pen (Novolog FlexPen U-100 Insulin aspart) insulin degludec 200 unit/mL (3 26 unit subcut QPM 04/15/23 07/05/23 mL) subcutaneous pen (Tresiba FlexTouch U-200 insulin) vibegron 75 mg tablet (Gemtesa) 75 mg PO DAILY 04/15/23 07/05/23 escitalopram oxalate 20 mg tablet 20 mg PO HS 04/27/23 07/05/23 Allergies Allergy/AdvReac Type Severity Reaction Status Date / Time adhesive tape Allergy Intermediate Blister Verified 07/28/23 16:51 hydromorphone [From Dilaudid] Allergy Intermediate Itching Verified 07/28/23 16:51 morphine Allergy Intermediate Itching Verified 07/28/23 16:51 PMFSH Past Medical History Medical History A-fib Allergies Anxiety Arthritis Asthma Back injury L5 SI injection Back pain Brain bleed (2) CAD (coronary artery disease) Colon polyps Costochondritis Depression Diabetic neuropathy DVT (deep venous thrombosis) (~1979) LLE Generalized pruritus Hyperlipidemia Hypertension IBS (irritable bowel syndrome) Insomnia Leukocytosis Obesity Osteopenia Postmenopausal Thyroid disorder TIA (transient ischemic attack) Trigeminal neuropathy Type 2 diabetes mellitus Urinary incontinence Visceral hypersensitivity syndrome Surgical History Surgical History H/O foot surgery Left and right H/O knee surgery Left H/O: hysterectomy History of back surgery History of surgery of head placement of shunt Hx laparoscopic cholecystectomy 06/2023 complicated by bile leak, bile peritonitis Family History Family History Mother , unknown cause Muscular dystrophy Father Carcinoma of colon Grandparent Acute myocardial infarction Ruptured appendix Sibling Acute myocardial infarction <65yo Social History Social History Smoking packs per day: 0.75 Smoking cigarettes per day: 15.0 Years smoked: 5 Smoking pack-years: 3.75 Smoking status: Former smoker Second hand tobacco smoke exposure: Yes Additional smoking assessment comments: DENIES ANY FORM OF TOBACCO USE Alcohol intake: never Substance use: never Do You Feel Safe in your Home?: Yes Lack of Transportation: No Lack of Food: Never True Current Housing: I Have Housing Concerned About Future Housing: No Difficulty Paying Gas/Electric Bills: No Difficulty Paying for Meds: No Currently Unemployed: No Education: High School Diploma/GED Difficulty w/ Childcare or Family Care: No Living arrangements: alone Occupation/Education: retired Spiritual care concerns: No Exam Narrative: APPEARANCE: Appears uncomfortable Head: atraumatic. EYES: EOMI, NOSE: Atrau
[2023-07-28 19:57] LABS: Appearance Urine Clear (Clear); Bacteria Urine None Seen /hpf; Bilirubin Urine Negative (Negative); Blood Urine Negative (Negative); Color Urine Yellow (Yellow); Glucose Urine UA 3+ mg/dL (Negative); Ketones Urine Trace mg/dL (Negative); Leukocyte Esterase Ur Negative LEU/UL (Negative); Need Manual Microscopic Reviewed; Nitrate Urine Negative (Negative); Non Pathogenic Casts 0-2; Protein Urine 1+ mg/dL (Negative); RBC Urine 0-2 /hpf (0-2); Squamous Epithelial Cell Urine None Seen /hpf (Few); WBC Urine 0-5 /hpf (0-3)
[2023-07-28 20:04] LABS: Add Urine Microscopic? YES
[2023-07-28] MEDS: PIPERACILLN/TAZ 3.375GM/NS50ML 3.375 GM/50 ML BAG IVPB (20:15)
[2023-07-28] MEDS: SODIUM CHLORIDE 0.9% IV 2,000 ML 999 ML IV CONT (20:39)
--- NOTE | 2023-07-28 21:06 | PC.NURSE ---
Dr. Patel put in central line at this time. XR was ordered and came down. Jorge stated the central line is okay to use.
[2023-07-28] MEDS: NOREPINEPHRINE 8 MG/D5W 250 ML 8 MG/250 ML BAG 9.38 MG IV CONT (21:08)
[2023-07-28 21:52] LABS: MRSA (PCR) NOT DETECTED (NOT DETECTE)
[2023-07-28] MEDS: VANCOMYCIN 2,000 MG/NS 500 ML 2,000 MG/500 ML BAG 250 MG IVPB (21:59)
--- NOTE | 2023-07-28 22:05 | PC.NURSE ---
This patient, Alicia Del Toro, was admitted to Intensive Care Unit-7. Patient/family oriented to hospital policies and general routines including ID bracelet, bed and alarms, visiting hours, pain management, procedures, bathroom and other care routines, personal items, smoking policy, room service/diet, and visiting hours. Information on how to activate the Rapid Response Team has been discussed. Patient/Family are encouraged to report perceived risks to care and to ask questions if they do not understand what they are told or what they should do.
[2023-07-28] MEDS: LACTATED RINGERS 1,000 ML 125 ML IV CONT (22:52)
[2023-07-28] MEDS: diphenhydrAMINE HCl INJ 50 MG/ML VIAL 25 MG IV PUSH (22:56)
[2023-07-28] MEDS: ONDANSETRON INJ 4 MG/2 ML VIAL IV PUSH (22:56)
[2023-07-28] MEDS: HYDROmorphone HCL INJ (*CRX) 1 MG/ML SYR 0.5 MG IV PUSH (22:57)
[2023-07-28] MEDS: ACETAMINOPHEN 325 MG TABLET 650 MG PO (23:19)
--- NOTE | 2023-07-28 23:44 | PM.IMHP ---
H&P: HPI History of Present Illness Date/Time: 07/28/23 23:44 Chief Complaint: Patient brought to the ER for evaluation via EMS from home with complaints of of nausea, vomiting and shaking chills Narrative: She is a pleasant 73 years old white female who underwent cholecystectomy 3 weeks ago by our surgeon, complicated by biliary leak, requiring stent placement by GI. She is complaining of weak tired and fatigued for the last few days. She was seen and evaluated in our ER 3 days ago. Workup was negative and she was sent home. She is complaining of worsening symptoms with fever, rigors and shaking chills along with abdominal pain. EMS was called and patient was brought to the ER for evaluation. Workup done which showed leukocytosis with fever. CT scan of abdomen was done which showed pneumobilia and 1.6 cm fluid collection in fossa. Diagnosis was made for Sepsis with possible cholangitis. Patient was given septic doses of IV fluids and started on aggressive IV antibiotics. GI and General surgery were consulted. She was initially being placed in IMU but she dropped her blood pressure to 85/50. Central line was placed and patient started on IV Levophed drip. ER physician spoke with the employment law specialist and patient is being admitted to ICU for close monitoring, further evaluation, workup and critical care management by our employment law specialist. Review of Systems Review of Systems: 14 systems were reviewed with pertinent positives and negatives per HPI. Except as documented in the HPI/progress notes, all other systems were reviewed and are negative. All systems reviewed & are unremarkable except as noted in HPI and below PMFSH Past Medical History Medical History A-fib Allergies Anxiety Arthritis Asthma Back injury L5 SI injection Back pain Brain bleed (2) CAD (coronary artery disease) Colon polyps Costochondritis Depression Diabetic neuropathy DVT (deep venous thrombosis) (~1979) LLE Generalized pruritus Hyperlipidemia Hypertension IBS (irritable bowel syndrome) Insomnia Leukocytosis Obesity Osteopenia Postmenopausal Thyroid disorder TIA (transient ischemic attack) Trigeminal neuropathy Type 2 diabetes mellitus Urinary incontinence Visceral hypersensitivity syndrome Surgical History Surgical History H/O foot surgery Left and right H/O knee surgery Left H/O: hysterectomy History of back surgery History of surgery of head placement of shunt Hx laparoscopic cholecystectomy 06/2023 complicated by bile leak, bile peritonitis Family History Family History Mother , unknown cause Muscular dystrophy Father Carcinoma of colon Grandparent Acute myocardial infarction Ruptured appendix Sibling Acute myocardial infarction <65yo Social History Social History Smoking packs per day: 1 Smoking cigarettes per day: 20.0 Years smoked: 10 Smoking pack-years: 10.00 Smoking status: Former smoker Second hand tobacco smoke exposure: Yes Additional smoking assessment comments: DENIES ANY FORM OF TOBACCO USE Alcohol intake: never Substance use: never Substance use type: does not use Do You Feel Safe in your Home?: Yes Lack of Transportation: No Lack of Food: Never True Current Housing: Decline to Answer Concerned About Future Housing: Decline to Answer Difficulty Paying Gas/Electric Bills: Decline to Answer Difficulty Paying for Meds: Decline to Answer Currently Unemployed: Decline to Answer Education: Decline to Answer Difficulty w/ Childcare or Family Care: Decline to Answer Living arrangements: alone Occupation/Education: retired Spiritual care concerns: No Meds Home Medications and Allergies Home Medications Medication Instructions Recorded Confirme
[2023-07-29] VITALS (49 sets, daily range): BP systolic 77–172; BP diastolic 42–129; PULSE 70–129; RESP 11–24; TEMP 36.5–39.3; O2SAT 91–100; BMI 29.7
[2023-07-29] MEDS: PIPERACILLN/TAZ 3.375GM/NS50ML 3.375 GM/50 ML BAG IVPB ×4 (00:15→17:28)
[2023-07-29 00:46] LABS: Glucose Point of Care 144 mg/dl (65-105)
[2023-07-29] MEDS: NOREPINEPHRINE 8 MG/D5W 250 ML 8 MG/250 ML BAG 3.75 MG IV CONT (03:35)
[2023-07-29 06:09] LABS: Basophils Absolute Auto 0.1 K/mm3 (0.0-0.1); Basophils Percent Auto 0.2 % (0.2-1.2); Hemoglobin 8.8 g/dL (12.0-15.0); Immature Granulocyte Absolute 0.21 K/mm3 (0.00-0.031); Immature Granulocyte Percent A 0.8 % (0-0.5); Lymphocytes Absolute Auto 0.71 K/mm3 (0.9-3.2); Lymphocytes Percent Auto 2.7 % (18.3-44.2); Mean Corpuscular HGB Conc 30.3 g/dl (32-36); Mean Corpuscular Hemoglobin 26.3 pg (26-34); Mean Corpuscular Volume 86.6 fl (80-100); Mean Platelet Volume 10.5 fl (7.4-10.4); Monocytes Absolute Auto 1.5 K/mm3 (0.1-0.6); Monocytes Percent Auto 5.6 % (2.6-8.5); Neutrophils Absolute Auto 23.5 K/mm3 (1.3-6.7); Neutrophils Percent Auto 90.7 % (45.5-73.1); Platelet Count Result 298 k/mm3 (150-375); Red Blood Count 3.35 M/mm3 (4.2-5.4); Red Cell Distribution Width 15.4 % (11.5-14.5)
[2023-07-29 06:19] LABS: Alanine Aminotransferase 15 U/L (6-35); Albumin Level 2.8 g/dL (3.5-5.1); Alkaline Phosphatase 152 U/L (38-126); Anion Gap 7 mmol/L (4-12); Aspartate Amino Transferase 33 U/L (14-36); Bilirubin,Total 0.7 mg/dL (0.2-1.3); Blood Urea Nitrogen 21 mg/dL (7-17); Calcium 7.6 mg/dL (8.4-10.2); Carbon Dioxide 21 mmol/L (22-30); Chloride 109 mmol/L (98-107); Estimated CRCL calculation 59 ml/min; Estimated Glomerular Filt Rate > 60; Glucose 157 mg/dL (65-110); Magnesium 1.6 mg/dL (1.6-2.3); Phosphorus 2.9 mg/dL (2.5-4.5); Potassium 3.1 mmol/L (3.4-5.0); Sodium 137 mmol/L (137-145)
[2023-07-29 07:42] LABS: Glucose Point of Care 169 mg/dl (65-105)
--- NOTE | 2023-07-29 08:13 | P.CONGI_ITS ---
I, Collins Osborn MD, have provided a substantive portion of the care of this patient and discussed the patient with my Nurse Practitioner. I have reviewed any new relevant radiographic and laboratory results including medications. I agree with her documentation as noted below.?I personally performed the medical decision making and much of the history and exam for this encounter. briefly, she had cholecystectomy complicated by bile leak last month therefore I performed ERCP with pancreatic and biliary stent with resolution of leak, she is back here with nausea, fever, ruq pain and found to have leukocytosis, normal liver enzymes other than mild elevated alk phos 170, CT scan showed stents in place, pneumobilia, smaller size fluid collection at GB fossa and possible cholangitis. Admitted to ICU because hypotension, CVL placed, on levophed and iv antibiotics. Plan is ERCP tomorrow to remove stents- wonder if could be source of infection. Assessment and Plan Assessment and plan (1) Pneumobilia: Code(s): K83.8 - Other specified diseases of biliary tract Status: Acute (2) S/P laparoscopic cholecystectomy: Code(s): Z90.49 - Acquired absence of other specified parts of digestive tract Status: Acute (3) Leukocytosis: Qualifiers: Leukocytosis type: unspecified Qualified Code(s): D72.829 - Elevated white blood cell count, unspecified Code(s): D72.829 - Elevated white blood cell count, unspecified Status: Acute (4) Anemia of chronic disease: Code(s): D63.8 - Anemia in other chronic diseases classified elsewhere Status: Acute Plan 1) Pneumobilia/status post cholecystectomy/ leukocytosis /cholangitis/sepsis: S/P cholecystectomy for acute cholecystitis with cholelithiasis performed patient in had an ERCP 07/08/2023 for postop bile leak at which time she had a stent placed. Patient was seen in the emergency room July 24 and her workup was on remarkable. Patient presented back to the emergency room yesterday with complaints of fever, nausea, and vomiting. CT showed small amount of air peripherally in the upper right hepatic lobe, unclear whether this is pneumobilia versus parenchymal air. There is also suggestion of subtle ill- defined parenchymal hypodensity surrounding the air in this region. Infective cholangitis/hepatitis is a consideration in this region.Decreasing fluid collection to gallbladder fossa, now measuring 1.6 cm in diameter. Common bile duct and main pancreatic stents in place. Patient was diagnosed with sepsis and had hypotension requiring vasopressors and B/P improved. On admission WBC 17 today at 26. * plan for ERCP with stent removal tomorrow * Surgery on case, pending recommendations * On antibiotics, continue * Keep patient NPO 2) Anemia of chronic disease: History of A-Fib on Eliquis prior to admission. labs today show HGB 9, HCT 29, MCV 87, platelets 198, INR 1.8. No signs of active GI bleeding. Last colonoscopy March of 2021. * Primary care team to continue monitoring H&H and transfuse as needed to keep HGB >7 3) Elevated alkaline phosphatase: LFTs normal except intermittent alkaline phosphatase elevation since 07/08. Since admission Alk Phos 174-->152. * likely secondary to problem 1 , continue to monitor Thank you for allowing me to share in the care of this very nice patient. This report may have been done utilizing a voice recognition system. Attempts have been made to correct errors. However, there may be uncorrected grammatical, spelling, and recognition errors present. GI Consult Note Consult date/time: 07/19
--- NOTE | 2023-07-29 08:13 | WPDGICN ---
Assessment and Plan Assessment and plan (1) Pneumobilia: Code(s): K83.8 - Other specified diseases of biliary tract Status: Acute (2) S/P laparoscopic cholecystectomy: Code(s): Z90.49 - Acquired absence of other specified parts of digestive tract Status: Acute (3) Leukocytosis: Qualifiers: Leukocytosis type: unspecified Qualified Code(s): D72.829 - Elevated white blood cell count, unspecified Code(s): D72.829 - Elevated white blood cell count, unspecified Status: Acute (4) Anemia of chronic disease: Code(s): D63.8 - Anemia in other chronic diseases classified elsewhere Status: Acute Plan 1) Pneumobilia/status post cholecystectomy/ leukocytosis /cholangitis/sepsis: S/P cholecystectomy for acute cholecystitis with cholelithiasis performed 07/03/2023 patient in had an ERCP 07/08/2023 for postop bile leak at which time she had a stent placed. Patient was seen in the emergency room July 24 and her workup was on remarkable. Patient presented back to the emergency room yesterday with complaints of fever, nausea, and vomiting. CT showed small amount of air peripherally in the upper right hepatic lobe, unclear whether this is pneumobilia versus parenchymal air. There is also suggestion of subtle ill-defined parenchymal hypodensity surrounding the air in this region. Infective cholangitis/hepatitis is a consideration in this region.Decreasing fluid collection to gallbladder fossa, now measuring 1.6 cm in diameter. Common bile duct and main pancreatic stents in place. Patient was diagnosed with sepsis and had hypotension requiring vasopressors and B/P improved. On admission WBC 17 today at 26. plan for ERCP with stent removal tomorrow Surgery on case, pending recommendations On antibiotics, continue Keep patient NPO 2) Anemia of chronic disease: History of A-Fib on Eliquis prior to admission. labs today show HGB 9, HCT 29, MCV 87, platelets 198, INR 1.8. No signs of active GI bleeding. Last colonoscopy March of 2021. Primary care team to continue monitoring H&H and transfuse as needed to keep HGB >7 3) Elevated alkaline phosphatase: LFTs normal except intermittent alkaline phosphatase elevation since 07/08. Since admission Alk Phos 174-->152. likely secondary to problem 1 , continue to monitor Thank you for allowing me to share in the care of this very nice patient. This report may have been done utilizing a voice recognition system. Attempts have been made to correct errors. However, there may be uncorrected grammatical, spelling, and recognition errors present. GI Consult Note Consult date/time: 07/29/23 08:13 Reason for consult: Pneumobilia HPI: Alicia Del Toro is a 73 year old female with past medical surgical Hx of A-Fib, anxiety, asthma, CAD, colon polyps, depression, HLD, HTN, IBS, Hx of TIA, diabetes, hysterectomy. Patient S/P cholecystectomy 07/03/2023 which was complicated by biliary leak and an ERCP was performed and stent placed 07/08/2023. She presented to the ER last week with complaints of fatigue and her workup was unremarkable. Patient presented back to the ER yesterday with complaints of fever and abdominal pain. CT showed pneumobilia and 1.6 cm fluid collection in fossa. Sepsis with possible cholangitis diagnosed. Patient seen with daughter Ramya at bedside throughout the entire visit. Patient complains of generalized Abdominal discomfort. Nausea and vomiting have improved since admission. Admits to decreased appetite, fever, and loose stool since cholecystectomy. Denies bloating, odynophagia, dysphagia, reflux, regurgitation, early satiety, unexplained weight loss, constipation, hematochezia, or melena. ENDOSCOPY HISTORY: ERCP: 07/08/2023 (Dr. Sears) for bile leak post CCX Ampulla appeared normal with small papillary orifice Opacification of the pancreatic duct was succe
[2023-07-29] MEDS: KCL 40 MEQ/WATER 100 ML 100 ML 25 ML IVPB (10:46)
[2023-07-29] MEDS: LACTATED RINGERS 1,000 ML 100 ML IV CONT ×2 (10:46→19:52)
[2023-07-29] MEDS: MAGNESIUM SULF 2 GM/WATER 50ML 2 GM/50 ML BAG IVPB (10:47)
[2023-07-29] MEDS: ONDANSETRON INJ 4 MG/2 ML VIAL IV PUSH (11:03)
[2023-07-29] MEDS: ACETAMINOPHEN 325 MG TABLET 650 MG PO ×2 (11:25→17:27)
[2023-07-29] MEDS: HEPARIN SOD/D5W 100 UNITS/ML 25,000 UNITS/250 ML BAG 12 UNITS IV CONT (11:29)
[2023-07-29 11:37] LABS: Basophils Absolute Auto 0.1 K/mm3 (0.0-0.1); Basophils Percent Auto 0.5 % (0.2-1.2); Eosinophils Percent Auto 0.2 % (0-4.4); Hematocrit 32.5 % (37.0-47.0); Hemoglobin 9.7 g/dL (12.0-15.0); Immature Granulocyte Absolute 0.03 K/mm3 (0.00-0.031); Immature Granulocyte Percent A 0.3 % (0-0.5); Lymphocytes Absolute Auto 1.15 K/mm3 (0.9-3.2); Lymphocytes Percent Auto 10.2 % (18.3-44.2); Mean Corpuscular HGB Conc 29.8 g/dl (32-36); Mean Corpuscular Hemoglobin 26.1 pg (26-34); Mean Corpuscular Volume 87.6 fl (80-100); Monocytes Absolute Auto 0.2 K/mm3 (0.1-0.6); Neutrophils Absolute Auto 9.7 K/mm3 (1.3-6.7); Neutrophils Percent Auto 86.8 % (45.5-73.1); Platelet Count Result 333 k/mm3 (150-375); Red Blood Count 3.71 M/mm3 (4.2-5.4); Red Cell Distribution Width 15.5 % (11.5-14.5); White Blood Count 11.2 K/mm3 (4.5-10.0)
[2023-07-29 11:48] LABS: Glucose Point of Care 136 mg/dl (65-105)
[2023-07-29 11:48] LABS: INR 1.7; Prothrombin Time 19.9 Seconds (11.1-14.7)
[2023-07-29 11:49] LABS: Partial Thromboplastin Time 39.2 Seconds (22.3-36.8)
--- NOTE | 2023-07-29 13:16 | PM.IMPN ---
Progress Note: A&P Assessment and Plan (1) Sepsis: Code(s): A41.9 - Sepsis, unspecified organism Status: Acute (2) Pneumobilia: Code(s): K83.8 - Other specified diseases of biliary tract Status: Acute (3) Cholangitis: Code(s): K83.09 - Other cholangitis Status: Acute (4) Status post ventriculoperitoneal shunt: Code(s): Z98.2 - Presence of cerebrospinal fluid drainage device Status: Acute (5) S/P laparoscopic cholecystectomy: Code(s): Z90.49 - Acquired absence of other specified parts of digestive tract Status: Acute (6) Insulin dependent diabetes mellitus: Status: Chronic (7) Elevated LFTs: Code(s): R79.89 - Other specified abnormal findings of blood chemistry Status: Acute Plan [age] year old female who recently underwent cholecystectomy 3 weeks ago complicated by biliary leak requiring stent placement by GI presented back to the ER with fever rigors shaking chills and abdominal pain. Workup revealed leukocytosis with fever. CT scan of the abdomen showed pneumobilia and 1.6 cm fluid collection in gallbladder fossa. She was hypotensive in the ER requiring vasopressor. Admitted to ICU for further treatment for septic shock likely related to acute cholangitis. GI and General surgery has been consulted. She has been started on vancomycin and Zosyn. GI planning to get stent removal in a.m.. Blood culture to follow. Paroxysmal atrial fibrillation History of PRICING SPECIALIST shunt Insulin-dependent diabetes mellitus Hypertension Chronic anemia Hyperlipidemia DVT prophylaxis on Eliquis at home. Switch to IV heparin Subjective Date/time seen: 07/29/23 13:16 Interval history: No overnight events. Patient afebrile this a.m.. Reports abdominal pain and right upper quadrant. Family at bedside discussed with them. Review of Systems Review of Systems: All systems reviewed & are unremarkable except as noted in HPI and below Exam Narrative: General physical exam: Patient lying in bed, feeling very weak tired and fatigued not in acute distress Head/eyes: Atraumatic, EOMI, PERRLA ENT: Moist mucous membranes, nasal passages clear Neck: Supple, full range of motion, trachea midline CVS: S1 + S2, regular rate and rhythm Respiratory: Bilaterally fair air entry in both lung mccormick, mild B/L crackles, symmetric chest expansion, no distress Abdomen: Soft, + mild generalized abdominal tenderness on palpation, bowel sounds +ve, no organomegaly Extremities: No clubbing, no cyanosis, no edema, no calf tenderness Musculoskeletal: Moves all, decreased range of motion, no muscle spasms Skin: Warm, dry, no jaundice, no cyanosis Neurological: Awake, alert, oriented x 3, cranial nerves II-XII intact, no focal neurological deficits Psychiatric: Patient appears anxious due to shaking chills, Non suicidal Objective Data Vital Signs Vital Signs: Vital Signs - 24 hr 07/28/23 16:44 07/28/23 16:57 07/28/23 17:00 Temperature 102.2 F H Pulse Rate 93 89 Respiratory Rate 19 16 18 Blood Pressure 120/58 L 120/58 L Pulse Oximetry 99 98 99 Oxygen Delivery Room Air Oxygen Flow Rate 07/28/23 18:33 07/28/23 20:26 07/28/23 21:08 Temperature Pulse Rate 95 86 87 Respiratory Rate 19 18 Blood Pressure 122/62 96/52 L 104/52 L Pulse Oximetry 97 100 Oxygen Delivery Oxygen Flow Rate 07/28/23 18:46 07/28/23 19:45 07/28/23 20:00 Temperature Pulse Rate 95 93 93 Respiratory Rate 15 21 H 24 H Blood Pressure 108/45 L 96/46 L 100/45 L Pulse Oximetry 96 Oxygen Delivery Oxygen Flow Rate 07/28/23 20:31 07/28/23 20:33 07/28/23 21:15 Temperature Pulse Rate 88 89 Respiratory Rate 17 16 Blood Pressure 84/42 L 96/52 L 108/84 Pulse Oximetry Oxygen Delivery Oxygen Flow Rate 07/28/23 21:31 07/28/23 21:47 07/28/23 22:18 Temperature 99 F Pulse Rate 82 86 81 Respiratory Rate 25 H 18 Blood Pressure 117/59 L 88/47 L 109/54
--- NOTE | 2023-07-29 14:03 | WPDINTPN ---
Subjective Date/time seen: 07/29/23 14:03 Objective Data Vital Signs Vital Signs: Vital Signs - 24 hr 07/28/23 16:44 07/28/23 16:57 07/28/23 17:00 Temperature 102.2 F H Pulse Rate 93 89 Respiratory Rate 19 16 18 Blood Pressure 120/58 L 120/58 L Pulse Oximetry 99 98 99 Oxygen Delivery Room Air Oxygen Flow Rate 07/28/23 18:33 07/28/23 20:26 07/28/23 21:08 Temperature Pulse Rate 95 86 87 Respiratory Rate 19 18 Blood Pressure 122/62 96/52 L 104/52 L Pulse Oximetry 97 100 Oxygen Delivery Oxygen Flow Rate 07/28/23 18:46 07/28/23 19:45 07/28/23 20:00 Temperature Pulse Rate 95 93 93 Respiratory Rate 15 21 H 24 H Blood Pressure 108/45 L 96/46 L 100/45 L Pulse Oximetry 96 Oxygen Delivery Oxygen Flow Rate 07/28/23 20:31 07/28/23 20:33 07/28/23 21:15 Temperature Pulse Rate 88 89 Respiratory Rate 17 16 Blood Pressure 84/42 L 96/52 L 108/84 Pulse Oximetry Oxygen Delivery Oxygen Flow Rate 07/28/23 21:31 07/28/23 21:47 07/28/23 22:18 Temperature 99 F Pulse Rate 82 86 81 Respiratory Rate 25 H 18 Blood Pressure 117/59 L 88/47 L 109/54 L Pulse Oximetry 100 Oxygen Delivery Oxygen Flow Rate 07/28/23 23:01 07/28/23 23:19 07/28/23 23:22 Temperature 101.9 F H Pulse Rate 114 H 125 H Respiratory Rate Blood Pressure 123/91 H 137/86 Pulse Oximetry Oxygen Delivery Oxygen Flow Rate 07/28/23 23:46 07/28/23 23:30 07/28/23 22:17 Temperature Pulse Rate 122 H 124 H Respiratory Rate Blood Pressure 118/58 L 133/98 H Pulse Oximetry Oxygen Delivery Room Air Oxygen Flow Rate 07/29/23 00:15 07/29/23 00:14 07/29/23 00:00 Temperature 102.7 F H Pulse Rate 110 H 110 H Respiratory Rate Blood Pressure 129/65 104/56 L Pulse Oximetry Oxygen Delivery Oxygen Flow Rate 07/29/23 00:00 07/28/23 22:15 07/29/23 00:00 Temperature 98.0 F Pulse Rate 79 115 H Respiratory Rate 16 Blood Pressure 109/54 L Pulse Oximetry 97 Oxygen Delivery Room Air Oxygen Flow Rate 07/28/23 23:15 07/29/23 01:00 07/29/23 02:00 Temperature 101.9 F H Pulse Rate 121 H 111 H 110 H Respiratory Rate 20 19 Blood Pressure 137/86 112/59 L Pulse Oximetry 92 95 Oxygen Delivery Oxygen Flow Rate 07/29/23 00:00 07/28/23 22:30 07/28/23 22:45 Temperature Pulse Rate 119 H 87 105 H Respiratory Rate 18 Blood Pressure 104/56 L 115/66 126/89 Pulse Oximetry 94 Oxygen Delivery Oxygen Flow Rate 07/28/23 23:00 07/29/23 02:00 07/29/23 03:00 Temperature 99.1 F Pulse Rate 115 H 110 H 111 H Respiratory Rate 24 H 19 Blood Pressure 123/91 H 105/57 L 95/55 L Pulse Oximetry 96 96 Oxygen Delivery Oxygen Flow Rate 07/29/23 03:35 07/29/23 04:00 07/29/23 04:15 Temperature Pulse Rate 108 H 105 H 105 H Respiratory Rate Blood Pressure 83/46 L 85/49 L 88/48 L Pulse Oximetry Oxygen Delivery Oxygen Flow Rate 07/29/23 04:30 07/29/23 05:00 07/29/23 06:00 Temperature Pulse Rate 102 H 104 H 96 Respiratory Rate Blood Pressure 93/56 L 94/54 L 103/66 Pulse Oximetry Oxygen Delivery Oxygen Flow Rate 07/29/23 04:00 07/29/23 04:00 07/29/23 04:00 Temperature 98.1 F Pulse Rate 106 H 105 H Respiratory Rate 16 Blood Pressure 85/49 L Pulse Oximetry 97 97 Oxygen Delivery Nasal Cannula Oxygen Flow Rate 2 07/29/23 06:00 07/29/23 06:00 07/29/23 07:46 Temperature 98.2 F Pulse Rate 96 96 Respiratory Rate 20 Blood Pressure 103/66 Pulse Oximetry 98 98 Oxygen Delivery Nasal Cannula Oxygen Flow Rate 0.5 07/29/23 08:00 07/29/23 08:45 07/29/23 09:15 Temperature 97.7 F Pulse Rate 87 76 75 Respiratory Rate 14 Blood Pressure 113/68 127/72 134/79 Pulse Oximetry 96 Oxygen Delivery Oxygen Flow Rate 07/29/23 09:20 06/10/24 10:00 07/29/23 10:45 Temperature Pulse Rate 73 86 Respiratory Rate 14 Blood Pressure
--- NOTE | 2023-07-29 14:04 | WPDCNINT ---
Assessment and Plan Assessment and plan (1) Septic shock: Code(s): A41.9 - Sepsis, unspecified organism; R65.21 - Severe sepsis with septic shock Status: Acute Assessment and Plan: Septic shock likely related to cholangitis, 07/27: Patient presented with nausea, vomiting, fevers, chills, was found to be hypotensive in the ER despite IV fluids per sepsis protocol. Insert in the ER and patient was started on norepinephrine -continue norepinephrine and maintain MAP > 65 mm Hg for adequate end organ perfusion -lactic acid within normal -continue vancomycin and Zosyn (07/27) -07/27: Blood cultures have been obtained and pending -continue to monitor renal function (2) Cholangitis: Code(s): K83.09 - Other cholangitis Status: Acute Assessment and Plan: 07/03/2023: recent laparoscopic cholecystectomy 07/07: ERCP o for postop bile leak with stent placement 07/27: Patient with presented with pneumobilia on CT scan of the abdomen and pelvis as under along with fluid collection to the gallbladder fossa GI has evaluated the patient, patient to have ERCP on 07/30/2023 -surgery also following the patient -continue antibiotics as above 07/27: CT abdomen and pelvis Impression: -New small amount of air peripherally in the upper right hepatic lobe, unclear whether this is pneumobilia versus parenchymal air. There is also suggestion of subtle ill-defined parenchymal hypodensity surrounding the air in this region. Infective cholangitis/hepatitis is a consideration in this region. -Decreasing fluid collection to gallbladder fossa, now measuring 1.6 cm in diameter. -Common bile duct and main pancreatic stents in place. -Trace pelvic ascites, likely related to INTERIOR HORTICULTURIST shunt. 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: with termite control representative use Diabetes mellitus complication status: with hyperglycemia Qualified Code(s): E11.65 - Type 2 diabetes mellitus with hyperglycemia; Z79.4 - prison (current) use of insulin Code(s): E11.9 - Type 2 diabetes mellitus without complications Status: Acute Assessment and Plan: Sliding scale insulin Accu-Chek (4) A-fib: Code(s): I48.91 - Unspecified atrial fibrillation Status: Acute Assessment and Plan: Patient on Eliquis and metoprolol at home for AFib -will start heparin infusion -hold metoprolol for now since patient is in sinus rhythm, rate controlled and on vasopressors -if patient goes into AFib RVR will have to use amiodarone infusion -will hold heparin infusion for ERCP urine for tomorrow 07/30/2023 Plan DVT prophylaxis: Heparin infusion Stress ulcer prophylaxis: Not indicated Nutrition: Clear liquid diet, NPO post midnight Code Status: Full code Critical Care Time Spent: 47 minutes Discussed with patient's daughter and her brother updated them with patient's condition and plan of care. I answered all questions Due to a high probability of clinically significant, life threatening deterioration, the patient required my highest level of preparedness to intervene emergently and I personally spent this critical care time directly and personally managing the patient. This critical care time included obtaining a history; examining the patient; pulse oximetry; ordering and review of studies; arranging urgent treatment with development of a management plan; evaluation of patient's response to treatment; frequent reassessment; and discussions with other providers. It was exclusive of separately billable procedures and treating other patients and teaching time. Please see Assessment and Plan section and the rest of the note for further information on patient assessment and treatment This dictation may have been done utilizing a voice recognition system. Attempts have been made to correct errors. However, there may be uncorrected grammatical, spelling, and recognitions errors present. Display Trimmer
--- NOTE | 2023-07-29 14:23 | PM.CNGS ---
Assessment and Plan Assessment and plan (1) Septic shock: Code(s): A41.9 - Sepsis, unspecified organism; R65.21 - Severe sepsis with septic shock Status: Acute Assessment and Plan: Continue IV antibiotics, fluid resuscitation, critical care management. Blood cx pending. Source unclear, but likely biliary with CT suggesting infectious cholangitis/hepatitis. (2) Cholangitis: Code(s): K83.09 - Other cholangitis Status: Acute Assessment and Plan: Pneumobilia on CT suggesting possible cholangitis. GI following and planning ERCP tomorrow. Continue IV antibiotics. (3) Pneumobilia: Code(s): K83.8 - Other specified diseases of biliary tract Status: Acute (4) Bile leak, postoperative: Code(s): K91.89 - Other postprocedural complications and disorders of digestive system; K83.8 - Other specified diseases of biliary tract Status: Acute Assessment and Plan: S/p laparoscopic cholecystectomy on 07/02 with postop bile leak and ERCP with stent on 07/07. She was taken for laparoscopic washout on 07/08. CT showing still a small fluid collection in the gallbladder fossa that has decreased in size. It is only 1.6 cm and would not be large enough to percutaneously drain. Continue IV antibiotics and critical care management. GI following and planning ERCP tomorrow, will await their results. 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 Hardwick. History of Present Illness Consult details Consult date: 07/29/23 Reason for consult: other (Pneumobilia) Requesting physician: Shukri Patel MD Narrative: This is a 73-year-old woman with a history of atrial fibrillation on Eliquis, hx intracranial bleed in 2007 x 2, CAD, diabetes, and multiple other medical problems, who is known to our service from previous hospitalizations. She had a laparoscopic cholecystectomy on 07/03/[address] Melchor. She returned and was admitted for a postoperative bile leak. She had an ERCP with biliary stent placement on 07/08/23. She had bile peritonitis and was taken back to the OR for laparoscopic washout on 07/09/[address] Keller. She was eventually discharged on 07/19/23 and returned back to the ER yesterday with complaints of decreased appetite, fatigue, nausea, and vomiting. In the ER, she was febrile with a temperature of 102F. Labs showed WBC count 17,200, PT 21.1, INR 1.8, lactic acid 1.7, LFTs normal other than alk phos 174, and lipase normal. CT chest, abdomen, pelvis showed new small amount of air peripherally in the upper right hepatic lobe, unclear whether this is pneumobilia vs parenchymal air. Also suggestion of subtle ill-defined parenchymal hypodensity surrounding this region, could consider infective cholangitis/hepatitis. Fluid collection in the gallbladder fossa decreased in size to 1.6 cm. Common bile duct and pancreatic stents in place. Trace pelvic ascites likely related to WAREHOUSE RECORD CLERK shunt. She became hypotensive in the ER and had a central line placed. She has been started on vasopressors and was transferred to the ICU. Our service was consulted for pneumobilia. GI has also been consulted. She is seen in the ICU. She reports having RUQ abdominal pain but cannot recall any descriptive factors of her pain or how long it has been going on. She is having mild RUQ pain at the time of my exam. Review of Systems Review of Systems: ROS unobtainable: Yes unobtainable due to mental status (poor historian, history obtained by review of EMR and talking with f
[2023-07-29 16:20] LABS: Glucose Point of Care 140 mg/dl (65-105)
[2023-07-29] MEDS: VANCOMYCIN 1,500 MG/NS 500 ML 1,500 MG/500 ML BAG 250 MG IVPB (17:18)
[2023-07-29] MEDS: GABAPENTIN 300 MG CAPSULE PO (17:27)
[2023-07-29 17:46] LABS: Partial Thromboplastin Time 73.8 Seconds (22.3-36.8)
[2023-07-29 20:20] LABS: Glucose Point of Care 115 mg/dl (65-105)
[2023-07-29] MEDS: CENTRAL LINE FLUSH 10 ML IV PUSH (21:10)
[2023-07-30] VITALS (21 sets, daily range): BP systolic 98–133; BP diastolic 57–81; PULSE 2–114; RESP 12–21; TEMP 36.4–38.1; O2SAT 93–100
[2023-07-30 00:09] LABS: Partial Thromboplastin Time 101.6 Seconds (22.3-36.8)
[2023-07-30] MEDS: PIPERACILLN/TAZ 3.375GM/NS50ML 3.375 GM/50 ML BAG IVPB ×4 (00:28→18:36)
[2023-07-30] MEDS: LACTATED RINGERS 1,000 ML 100 ML IV CONT ×2 (05:58→18:36)
[2023-07-30] MEDS: CENTRAL LINE FLUSH 10 ML IV PUSH ×3 (05:59→20:55)
[2023-07-30] MEDS: ACETAMINOPHEN 325 MG TABLET 650 MG PO ×2 (06:10→14:33)
[2023-07-30 06:14] LABS: Basophils Absolute Auto 0.1 K/mm3 (0.0-0.1); Basophils Percent Auto 0.4 % (0.2-1.2); Eosinophils Absolute Auto 0.4 K/mm3 (0-0.3); Eosinophils Percent Auto 3.6 % (0-4.4); Hematocrit 28.7 % (37.0-47.0); Hemoglobin 8.6 g/dL (12.0-15.0); Immature Granulocyte Absolute 0.03 K/mm3 (0.00-0.031); Immature Granulocyte Percent A 0.3 % (0-0.5); Lymphocytes Absolute Auto 1.74 K/mm3 (0.9-3.2); Lymphocytes Percent Auto 15.6 % (18.3-44.2); Mean Corpuscular Hemoglobin 25.9 pg (26-34); Mean Corpuscular Volume 86.4 fl (80-100); Monocytes Absolute Auto 0.3 K/mm3 (0.1-0.6); Neutrophils Absolute Auto 8.6 K/mm3 (1.3-6.7); Neutrophils Percent Auto 77.1 % (45.5-73.1); Platelet Count Result 237 k/mm3 (150-375); Red Blood Count 3.32 M/mm3 (4.2-5.4); Red Cell Distribution Width 15.6 % (11.5-14.5); White Blood Count 11.2 K/mm3 (4.5-10.0)
[2023-07-30 06:24] LABS: INR 1.4; Prothrombin Time 17.2 Seconds (11.1-14.7)
[2023-07-30 06:32] LABS: Alanine Aminotransferase 16 U/L (6-35); Albumin Level 2.7 g/dL (3.5-5.1); Alkaline Phosphatase 113 U/L (38-126); Anion Gap 4 mmol/L (4-12); Aspartate Amino Transferase 27 U/L (14-36); Bilirubin,Total 0.4 mg/dL (0.2-1.3); Blood Urea Nitrogen 23 mg/dL (7-17); Calcium 8.1 mg/dL (8.4-10.2); Carbon Dioxide 23 mmol/L (22-30); Chloride 112 mmol/L (98-107); Estimated CRCL calculation 54 ml/min; Estimated Glomerular Filt Rate > 60; Glucose 78 mg/dL (65-110); Lactic Acid Reflex 1.1 mmol/L (0.7-2.0); Potassium 4.5 mmol/L (3.4-5.0); Sodium 139 mmol/L (137-145)
[2023-07-30 07:48] LABS: Glucose Point of Care 72 mg/dl (65-105)
[2023-07-30] MEDS: DEXTROSE 50% 25 GM/50 ML SYRINGE IV PUSH (07:56)
[2023-07-30] MEDS: ONDANSETRON INJ 4 MG/2 ML VIAL IV PUSH (07:56)
[2023-07-30] MEDS: GABAPENTIN 300 MG CAPSULE PO ×2 (08:44→16:48)
--- NOTE | 2023-07-30 09:06 | PM.IMPN ---
Progress Note: A&P Assessment and Plan (1) Sepsis: Code(s): A41.9 - Sepsis, unspecified organism Status: Acute (2) Pneumobilia: Code(s): K83.8 - Other specified diseases of biliary tract Status: Acute (3) Cholangitis: Code(s): K83.09 - Other cholangitis Status: Acute (4) Status post ventriculoperitoneal shunt: Code(s): Z98.2 - Presence of cerebrospinal fluid drainage device Status: Acute (5) S/P laparoscopic cholecystectomy: Code(s): Z90.49 - Acquired absence of other specified parts of digestive tract Status: Acute (6) Insulin dependent diabetes mellitus: Status: Chronic (7) Elevated LFTs: Code(s): R79.89 - Other specified abnormal findings of blood chemistry Status: Acute Plan [age] year old female who recently underwent cholecystectomy 3 weeks ago complicated by biliary leak requiring stent placement by GI presented back to the ER with fever rigors shaking chills and abdominal pain. Workup revealed leukocytosis with fever. CT scan of the abdomen showed pneumobilia and 1.6 cm fluid collection in gallbladder fossa. She was hypotensive in the ER requiring vasopressor Which has turned off 07/29/2023. Admitted to ICU for further treatment for septic shock likely related to acute cholangitis. GI and General surgery has been consulted. She has been started on vancomycin and Zosyn. GI Planned ERCP and stent removal today. Bacteremic with Gram-positive cocci in pairs. Await identification continue antibiotics as ordered . Paroxysmal atrial fibrillation History of TERRESTRIAL ECOLOGIST shunt Insulin-dependent diabetes mellitus Hypertension Chronic anemia Hyperlipidemia DVT prophylaxis on Eliquis at home. Switch to IV heparin Subjective Date/time seen: 07/30/23 09:06 Interval history: patient off Levophed since last evening. Abdomen is sore. Going for ERCP this a.m.. No nausea vomiting. Blood culture turned positive. Review of Systems Review of Systems: All systems reviewed & are unremarkable except as noted in HPI and below Exam Narrative: General: Pleasant female in no acute distress HEENT:? Pupils equal and reactive, sclera is clear, moist oral mucosa Neck:? Supple, right IJ central line in place Respiratory:? Clear to auscultation bilaterally, decreased at bases, adequate air entry, no wheezing Cardiac:? S1-S2 normal, regular rate and rhythm Abdomen:? Soft, tender to palpation the right upper, lower and epigastric region, hypoactive bowel sounds, nondistended Extremities:? No edema, palpable pedal pulses Neuro:? Patient is awake, alert, oriented, nonfocal, answers questions appropriately and follows simple commands in all extremities Skin:? Warm and dry Psych:? Normal mentation and affect Objective Data Vital Signs Vital Signs: Vital Signs - 24 hr 07/29/23 09:15 07/29/23 09:20 07/29/23 10:00 Temperature Pulse Rate 75 73 Respiratory Rate 14 Blood Pressure 134/79 140/78 Pulse Oximetry 96 99 Oxygen Delivery Room Air 07/29/23 10:45 07/29/23 11:35 07/29/23 11:00 Temperature Pulse Rate 86 121 H Respiratory Rate Blood Pressure 136/81 145/116 H Pulse Oximetry 95 Oxygen Delivery Room Air 07/29/23 11:15 07/29/23 11:30 07/29/23 12:00 Temperature 101.6 F H Pulse Rate 129 H 124 H 100 Respiratory Rate 11 L Blood Pressure 172/98 H 172/129 H 93/42 L Pulse Oximetry 91 Oxygen Delivery 07/29/23 12:45 07/29/23 13:00 07/29/23 13:15 Temperature Pulse Rate 101 H 95 93 Respiratory Rate Blood Pressure 88/42 L 90/48 L 99/55 L Pulse Oximetry Oxygen Delivery 07/29/23 13:30 07/29/23 13:45 07/29/23 14:00 Temperature Pulse Rate 91 93 95 Respiratory Rate Blood Pressure 104/59 L 110/57 L 104/57 L Pulse Oximetry Oxygen Delivery 07/29/23 10:00 07/29/23 12:00 07/29/23 12:00 Temperature Pulse Rate 72 99 Respiratory Rate Blood Pressure Pulse Oximetry
--- NOTE | 2023-07-30 09:33 | WPDPN ---
Progress Note: A&P Assessment and Plan (1) Septic shock: Code(s): A41.9 - Sepsis, unspecified organism; R65.21 - Severe sepsis with septic shock Status: Acute Assessment and Plan: Sepsis has improved. However the etiology and origin the sepsis is not clearly understood this time. Workup for pulmonary, urinary, and abdominal etiology for her sepsis seem to be negative. There is suggestion she could have ascending cholangitis so GI is going to remove the existing stent and perhaps exchanged out for a new stent. Continue supportive management. Continue IV antibiotics. No clear indication for surgical management at this time Subjective Date/time seen: 07/30/23 09:33 Interval history: Patient remains in the intensive care unit being treated for severe sepsis. She is awake and easily conversing with nurses and myself. Not having really any pain. Plan is for GI to perform ERCP today and remove the biliary stent. The she may be septic from ascending cholangitis and need exchange of a stent. there is a small residual fluid collection right upper quadrant near the gallbladder fossa. Given her normal white blood cell count and normal liver enzymes and no fever I do not think this represents a significant abscess. she has no SEASONAL PACKAGE HANDLER symptoms to suggest that she has infection of her LIVESTOCK RANCHER shunt. Exam GI: Other: Abdomen is soft and nondistended nontender. All the port sites incisions are well healed. No redness or drainage or suggestion that she has wound infections. No peritoneal signs. Objective Data Vital Signs Vital Signs: Vital Signs - 24 hr 07/29/23 10:00 07/29/23 10:45 07/29/23 11:35 Temperature Pulse Rate 73 86 Respiratory Rate 14 Blood Pressure 140/78 136/81 Pulse Oximetry 99 95 Oxygen Delivery Room Air 07/29/23 11:00 07/29/23 11:15 07/29/23 11:30 Temperature Pulse Rate 121 H 129 H 124 H Respiratory Rate Blood Pressure 145/116 H 172/98 H 172/129 H Pulse Oximetry Oxygen Delivery 07/29/23 12:00 07/29/23 12:45 07/29/23 13:00 Temperature 38.7 C H Pulse Rate 100 101 H 95 Respiratory Rate 11 L Blood Pressure 93/42 L 88/42 L 90/48 L Pulse Oximetry 91 Oxygen Delivery 07/29/23 13:15 07/29/23 13:30 07/29/23 13:45 Temperature Pulse Rate 93 91 93 Respiratory Rate Blood Pressure 99/55 L 104/59 L 110/57 L Pulse Oximetry Oxygen Delivery 07/29/23 14:00 07/29/23 10:00 07/29/23 12:00 Temperature Pulse Rate 95 72 99 Respiratory Rate Blood Pressure 104/57 L Pulse Oximetry Oxygen Delivery 07/29/23 12:00 07/29/23 14:00 07/29/23 14:00 Temperature 38.6 C H Pulse Rate 95 95 Respiratory Rate 15 Blood Pressure 104/57 L Pulse Oximetry 95 Oxygen Delivery Room Air 07/29/23 14:15 07/29/23 14:30 07/29/23 14:45 Temperature Pulse Rate 97 94 95 Respiratory Rate Blood Pressure 107/61 106/59 L 107/56 L Pulse Oximetry Oxygen Delivery 07/29/23 15:00 07/29/23 15:15 07/29/23 15:30 Temperature Pulse Rate 93 90 90 Respiratory Rate Blood Pressure 103/61 107/57 L 100/56 L Pulse Oximetry Oxygen Delivery 07/29/23 15:45 07/29/23 16:00 07/29/23 16:00 Temperature 37.7 C H Pulse Rate 89 87 Respiratory Rate 16 Blood Pressure 98/55 L 99/61 L Pulse Oximetry 97 Oxygen Delivery Room Air 07/29/23 16:00 07/29/23 18:00 07/29/23 16:00 Temperature Pulse Rate 87 75 88 Respiratory Rate Blood Pressure 99/61 L Pulse Oximetry Oxygen Delivery 07/29/23 17:00 07/29/23 17:30 07/29/23 18:39 Temperature Pulse Rate 77 74 81 Respiratory Rate Blood Pressure 99/60 L 119/65 77/44 L Pulse Oximetry Oxygen Delivery 07/29/23 18:00 07/29/23 18:00 07/29/23 18:45 Temperature 37.4 C Pulse Rate 79 79 79 Respiratory Rate 15 Blood Pressure 96/53 L 96/53 L 96/59 L Pulse Oximetry 99 Oxygen Delivery 07/29/23 20:14 07/29/23 20:30 07/29/23 21:00
[2023-07-30] MEDS: LACTATED RINGERS 1,000 ML 150 ML IV CONT (10:36)
[2023-07-30 10:40] LABS: Glucose Point of Care 90 mg/dl (65-105)
--- NOTE | 2023-07-30 11:17 | WPDANESEPPF ---
Anes - Initial Pre Proc Eval Procedure: Operation Date: 07/30/23 11:30 Proposed Procedures p Endoscopic Retro Cholangiopancreatogram - Collins Osborn MD Date/Time: 07/30/23 11:17 Surgeon: Michael Forrest MD Pre Op Diagnosis: Pneumobilia Patient Data Age: 73 Gender: F Height: 1.65 m Weight: 84.5 kg Last Vital Signs Temp 99.9 F H 07/30/23 10:41 Pulse 83 07/30/23 10:41 Resp 19 07/30/23 10:41 BP 117/69 07/30/23 10:41 Pulse Ox 100 07/30/23 10:41 O2 Del Method Room Air 07/30/23 10:41 O2 Flow Rate 0.5 07/29/23 07:46 Allergies Allergy/AdvReac Type Severity Reaction Status Date / Time adhesive tape Allergy Intermediate Blister Verified 07/28/23 22:24 hydromorphone [From Dilaudid] Allergy Intermediate Itching Verified 07/28/23 22:24 morphine Allergy Intermediate Itching Verified 07/28/23 22:24 Home Medications Medication Instructions Recorded Confirmed Type blood-glucose meter #1 ea 05/04/20 07/28/23 Rx pen needle, diabetic 31 gauge x #360 ea 09/12/22 07/28/23 Rx 5/16 (BD Ultra-Fine Short Pen Needle) gabapentin 300 mg capsule 300 mg PO BID 90 days #180 caps 12/13/22 07/28/23 Rx trazodone 100 mg tablet 100 mg PO QHS #90 tabs 02/07/23 07/28/23 Rx empagliflozin 25 mg tablet 25 mg PO DAILY 04/15/23 07/28/23 History (Jardiance) insulin aspart U-100 100 unit/mL 5 unit subcut AC PRN glucose 04/15/23 07/28/23 History (3 mL) subcutaneous pen (Novolog FlexPen U-100 Insulin aspart) insulin degludec 200 unit/mL (3 26 unit subcut QPM 04/15/23 07/28/23 History mL) subcutaneous pen (Tresiba FlexTouch U-200 insulin) vibegron 75 mg tablet (Gemtesa) 75 mg PO DAILY 04/15/23 07/28/23 History escitalopram oxalate 20 mg tablet 20 mg PO HS 04/27/23 07/28/23 History buspirone 5 mg tablet 5 mg PO BID #180 tabs 06/10/23 07/28/23 Rx metformin 500 mg tablet See Rx Instructions .Route 07/23/23 07/28/23 Rx .COMPLEX #90 tabs simvastatin 40 mg tablet 40 mg PO HS #90 tabs 07/23/23 07/28/23 Rx apixaban 5 mg tablet (Eliquis) 5 mg PO BID 07/28/23 07/28/23 History linagliptin 5 mg tablet (Tradjenta) 5 mg DAILY 07/28/23 07/28/23 History lisinopril 10 mg tablet 40 mg PO DAILY 07/28/23 07/28/23 History metoprolol tartrate 50 mg tablet 25 mg PO Q12HR 07/28/23 07/28/23 History Laboratory Tests 07/29/23 07/29/23 07/29/23 11:23 11:41 16:13 WBC 11.2 H K/mm3 (4.5-10.0) RBC 3.71 L M/mm3 (4.2-5.4) Hgb 9.7 L g/dL (12.0-15.0) Hct 32.5 L % (37.0-47.0) MCV 87.6 fl (80-100) MCH 26.1 pg (26-34) MCHC 29.8 L g/dl (32-36) RDW 15.5 H % (11.5-14.5) Plt Count 333 k/mm3 (150-375) MPV 10.0 fl (7.4-10.4) Immature Gran % (Auto) 0.3 % (0-0.5) Neut % (Auto) 86.8 H % (45.5-73.1) Lymph % (Auto) 10.2 L % (18.3-44.2) Snyder % (Auto) 2.0 L % (2.6-8.5) Eos % (Auto) 0.2 % (0-4.4) Baso % (Auto) 0.5 % (0.2-1.2) Lymph # (Auto) 1.15 K/mm3 (0.9-3.2) Snyder # (Auto) 0.2 K/mm3 (0.1-0.6) Eos # (Auto) 0.0 K/mm3 (0-0.3) Baso # (Auto) 0.1 K/mm3 (0.0-0.1) Abs Immat Gran (auto) 0.03 K/mm3 (0.00-0.031) Absolute Neuts (auto) 9.7 H K/mm3 (1.3-6.7) Absolute Nucleated RBC 0.000 K/mm3 (0.0-0.012) Nucleated RBC % 0.0 % (0.0-0.2) PT 19.9 H Seconds (11.1-14.7) INR 1.7 APTT 39.2 H Seconds (22.3-36.8) Sodium Potassium Chloride Carbon Dioxide Anion Gap BUN Creatinine Estim Creat Clear Calc Estimated GFR Glucose POC Capillary Glucose 136 H mg/dl 140 H mg/dl (65-105) (65-105) Lactic Acid Calcium Total Bilirubin AST ALT [place]
--- NOTE | 2023-07-30 11:18 | WPDINTPN ---
Progress Note: A&P Assessment and Plan (1) Septic shock: Code(s): A41.9 - Sepsis, unspecified organism; R65.21 - Severe sepsis with septic shock Status: Acute Assessment and Plan: Septic shock likely related to cholangitis, 07/27: Patient presented with nausea, vomiting, fevers, chills, was found to be hypotensive in the ER despite IV fluids per sepsis protocol. Insert in the ER and patient was started on norepinephrine -continue norepinephrine and maintain MAP > 65 mm Hg for adequate end organ perfusion -lactic acid within normal -continue vancomycin and Zosyn (07/27) -07/27: Blood cultures Gram-positive cocci in pairs 2/2 bottles -continue to monitor renal function (2) Cholangitis: Code(s): K83.09 - Other cholangitis Status: Acute Assessment and Plan: 07/03/2023: recent laparoscopic cholecystectomy 07/07: ERCP o for postop bile leak with stent placement 07/27: Patient with presented with pneumobilia on CT scan of the abdomen and pelvis as under along with fluid collection to the gallbladder fossa GI has evaluated the patient, patient to have ERCP today, 07/30/2023 -surgery also following the patient -continue antibiotics as above 07/27: CT abdomen and pelvis Impression: -New small amount of air peripherally in the upper right hepatic lobe, unclear whether this is pneumobilia versus parenchymal air. There is also suggestion of subtle ill-defined parenchymal hypodensity surrounding the air in this region. Infective cholangitis/hepatitis is a consideration in this region. -Decreasing fluid collection to gallbladder fossa, now measuring 1.6 cm in diameter. -Common bile duct and main pancreatic stents in place. 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 (3) Type 2 diabetes mellitus: Qualifiers: Diabetes mellitus usp insulin use: with intermediate project manager use Diabetes mellitus complication status: with hyperglycemia Qualified Code(s): E11.65 - Type 2 diabetes mellitus with hyperglycemia; Z79.4 - USP (current) use of insulin Code(s): E11.9 - Type 2 diabetes mellitus without complications Status: Acute Assessment and Plan: Sliding scale insulin Accu-Chek (4) A-fib: Code(s): I48.91 - Unspecified atrial fibrillation Status: Acute Assessment and Plan: Patient on Eliquis and metoprolol at home for AFib -07/28 started on heparin infusion, -hold metoprolol for now since patient is in sinus rhythm, rate controlled and on vasopressors -if patient goes into AFib RVR will have to use amiodarone infusion -07/29: Holding heparin infusion for ERCP today 07/30/2023 Plan DVT prophylaxis: Heparin infusion currently on hold restart once patient comes back from the ERCP and if it is okay with GI Stress ulcer prophylaxis: Not indicated Nutrition: NPO for procedure Code Status: Full code Critical Care Time Spent: 32 minutes Discussed with patient's daughter and her brother updated them with patient's condition and plan of care. I answered all questions Due to a high probability of clinically significant, life threatening deterioration, the patient required my highest level of preparedness to intervene emergently and I personally spent this critical care time directly and personally managing the patient. This critical care time included obtaining a history; examining the patient; pulse oximetry; ordering and review of studies; arranging urgent treatment with development of a management plan; evaluation of patient's response to treatment; frequent reassessment; and discussions with other providers. It was exclusive of separately billable procedures and treating other patients and teaching time. Please see Assessment and Plan section and the rest of the note for further information on patient assessment and treatment This dictation may have been done utilizing a voice recognition system. Attempts have been made to correct errors. However, there may b
--- NOTE | 2023-07-30 11:46 | PCNFU ---
Nutrition Follow-Up Complete: Severe protein calorie malnutrition related to acute intra-abdominal infection, sepsis as evidenced by weight loss 9%/3 months; Intakes <50% needs >5 days. Diet advancement Goal: Improve PO intake once medically able Patient will continue with current goal. Pt current nutrition is NPO x 3 days. Last recorded weight is 84.5 kg, up from 81 kg on admit. Bowel Motility: No BM reported. Labs Reviewed: BUN 23, Hct 28.7,Hgb 8.6 Meds Noted: Zosyn, Vancomycin. Skin: WNL Additional Notes: Patient remains NPO. ERCP today. Levophed has been discontinued. No plans for nutrition today. Monitoring intakes, weights, labs, diet advancement plan of care Follow up every 3 days
[2023-07-30] MEDS: VANCOMYCIN 1,500 MG/NS 500 ML 1,500 MG/500 ML BAG 150 MG IVPB (12:35)
[2023-07-30 12:49] LABS: Glucose Point of Care 94 mg/dl (65-105)
--- NOTE | 2023-07-30 13:22 | SUR.PHASEII ---
Kylie- patients daughter called in post up to give up dates. I met her in the main lobby and brought her to recovery to speak with Dr Sears. I also called the ICU to update Kelsey her sister in law post procedure.
[2023-07-30 16:35] LABS: Glucose Point of Care 151 mg/dl (65-105)
--- NOTE | 2023-07-30 17:56 | PC.NURSE ---
Report called to 3 med/oral and maxillofacial surgeon Joellen. Questions answered. Pt transported via bed with all belongings.
[2023-07-30] MEDS: HYDROmorphone HCL INJ (*CRX) 1 MG/ML SYR 0.5 MG IV PUSH (20:55)
[2023-07-30] MEDS: diphenhydrAMINE HCl INJ 50 MG/ML VIAL 25 MG IV PUSH (20:55)
[2023-07-30] MEDS: diphenhydrAMINE HCl INJ 50 MG/ML VIAL IV PUSH (23:47)
[2023-07-31] MEDS: VANCOMYCIN 1,500 MG/NS 500 ML 1,500 MG/500 ML BAG 250 MG IVPB (05:21)
[2023-07-31] MEDS: LACTATED RINGERS 1,000 ML 100 ML IV CONT ×2 (05:21→23:17)
[2023-07-31] MEDS: PIPERACILLN/TAZ 3.375GM/NS50ML 3.375 GM/50 ML BAG IVPB ×2 (05:21)
[2023-07-31 05:38] LABS: Basophils Percent Auto 0.2 % (0.2-1.2); Eosinophils Percent Auto 0.2 % (0-4.4); Hematocrit 26.1 % (37.0-47.0); Immature Granulocyte Percent A 0.8 % (0-0.5); Lymphocytes Absolute Auto 1.43 K/mm3 (0.9-3.2); Lymphocytes Percent Auto 11.7 % (18.3-44.2); Mean Corpuscular HGB Conc 30.7 g/dl (32-36); Mean Corpuscular Hemoglobin 26.5 pg (26-34); Mean Corpuscular Volume 86.4 fl (80-100); Mean Platelet Volume 10.6 fl (7.4-10.4); Monocytes Percent Auto 8.3 % (2.6-8.5); Neutrophils Absolute Auto 9.6 K/mm3 (1.3-6.7); Neutrophils Percent Auto 78.8 % (45.5-73.1); Platelet Count Result 241 k/mm3 (150-375); Red Blood Count 3.02 M/mm3 (4.2-5.4); Red Cell Distribution Width 15.8 % (11.5-14.5); White Blood Count 12.2 K/mm3 (4.5-10.0)
[2023-07-31 05:47] LABS: Alanine Aminotransferase 14 U/L (6-35); Albumin Level 2.7 g/dL (3.5-5.1); Alkaline Phosphatase 103 U/L (38-126); Anion Gap 4 mmol/L (4-12); Aspartate Amino Transferase 22 U/L (14-36); Bilirubin,Total 0.4 mg/dL (0.2-1.3); Blood Urea Nitrogen 24 mg/dL (7-17); Calcium 7.9 mg/dL (8.4-10.2); Carbon Dioxide 24 mmol/L (22-30); Chloride 110 mmol/L (98-107); Estimated CRCL calculation 54 ml/min; Estimated Glomerular Filt Rate > 60; Glucose 157 mg/dL (65-110); Sodium 138 mmol/L (137-145)
[2023-07-31 06:00] VITALS: BP 113/59; PULSE 68; RESP 20; TEMP 36.1; O2SAT 98
[2023-07-31 06:17] LABS: Glucose Point of Care 211 mg/dl (65-105)
[2023-07-31 07:38] LABS: Glucose Point of Care 171 mg/dl (65-105)
[2023-07-31] MEDS: GABAPENTIN 300 MG CAPSULE PO ×2 (08:15→17:27)
--- NOTE | 2023-07-31 08:56 | ECG_ITS ---
Test Date: 2023-07-31 11:44:32 Measurements Intervals [place] Rate: 70 P: 79 MS: 226 QRS: -63 QRSD: 138 T: 241 QT: 511 QTc: 553 Interpretive Statements SINUS RHYTHM WITH FIRST DEGREE AV BLOCK INCOMPLETE LEFT BUNDLE BRANCH BLOCK NONSPECIFIC T-WAVE ABNORMALITY Compared to ECG 07/28/2023 17:16:04 NO SIGNIFICANT CHANGES Electronically Signed On 07-31-2023 13:54:57 CDT by Madhavi Archibald M.D.
[2023-07-31 11:36] LABS: Glucose Point of Care 171 mg/dl (65-105)
--- NOTE | 2023-07-31 12:57 | PM.PNGS ---
Progress Note: A&P Assessment and Plan (1) Septic shock: Code(s): A41.9 - Sepsis, unspecified organism; R65.21 - Severe sepsis with septic shock Status: Acute Assessment and Plan: Sepsis resolving. Etiology unclear at this point. She had both her biliary and pancreatic stents removed during the ERCP yesterday. No stones or pus found when sweeping the bile ducts and cholangiogram showed no more evidence of a leak and normal intrahepatics. Cholangitis does not appear to be the source of her sepsis. Continue supportive management. Continue IV antibiotics. No clear indication for surgical management at this time. Plan I have discussed the patient's case and plan of care with Dr. Keller. Subjective Subjective Date/Time Seen: 07/31/23 12:57 Patient reports: no new complaints and afebrile (since 07/29 at 10 am) Interval history: Patient was transferred out of ICU after being weaned off of vasopressors. She is on the medical floor. She reports feeling very tired, but is feeling better than yesterday. She denies any abdominal pain, nausea, or vomiting. Exam Const: General: no acute distress GI: Inspection: non-distended and incision (port site incisions are well healed with no erythema) GI Palp: Yes Soft to palpation, Yes Tenderness to palpation present (GI) (mild RUQ tenderness), No Guarding due to palpation present (GI) and No Rebound tenderness present Auscultation: normal bowel sounds Other: Objective Data Vital Signs Vital Signs: Vital Signs - 24 hr 07/30/23 13:07 07/30/23 13:15 07/30/23 14:00 Temperature Pulse Rate 76 71 Respiratory Rate 14 Blood Pressure 117/71 Pulse Oximetry 98 Oxygen Delivery Room Air Room Air 07/30/23 16:00 07/30/23 22:00 07/30/23 20:00 Temperature 99.0 F 97.6 F Pulse Rate 76 63 63 Respiratory Rate 15 20 20 Blood Pressure 119/65 133/70 Pulse Oximetry 98 99 99 Oxygen Delivery Room Air 07/31/23 06:00 Temperature 97.0 F L Pulse Rate 68 Respiratory Rate 20 Blood Pressure 113/59 L Pulse Oximetry 98 Oxygen Delivery Intake/Output Intake/Output: Intake & Output 07/28/23 07/29/23 07/30/23 07/31/23 23:59 23:59 23:59 23:59 Intake Total 1069.8 3334.0 3331.2 2200 Output Total 750 1000 800 Balance 1069.8 2584.0 2331.2 1400 Meds/Results Medications: Active Medications Generic Name Dose Route Start Last Admin Trade Name Freq PRN Reason Stop Dose Admin Acetaminophen 650 mg 07/28/23 22:39 07/30/23 14:33 Acetaminophen 325 Mg Tablet PO 650 mg Q6H PRN Administration Pain 1-5 or fever Al Hydrox/Mg Hydrox/Simethicone 30 ml 07/29/23 00:18 Mag Hydrox/Al Hydrox/Simeth 30 Ml Udc PO QID PRN Dyspepsia Buspirone HCl 5 mg 07/29/23 09:00 Buspirone Hcl 5 Mg Tablet PO BID ADAM Dextrose 12.5 gm 07/29/23 00:21 07/30/23 07:56 Dextrose 50% 25 Gm/50 Ml Syringe IV PUSH 12.5 gm PRN PRN Administration Hypoglycemia Protocol Diphenhydramine HCl 25 mg 07/28/23 22:38 07/30/23 20:55 Diphenhydramine Hcl Inj 50 Mg/Ml Vial IV PUSH 25 mg Q3H PRN Administration Itching Empagliflozin 25 mg 07/29/23 09:00 Empagliflozin 25 Mg Tablet PO DAILY ADAM Escitalopram Oxalate 20 mg 07/29/23 21:00 Escitalopram Oxalate 10 Mg Tablet PO HS ADAM Gabapentin 300 mg 07/29/23 09:00 07/31/23 08:15 Gabapentin 300 Mg Capsule PO 300 mg BID ADAM Administration Glucagon 1 mg 07/29/23 00:21 Glucagon For Inj 1 Mg Vial IM PRN PRN Hypoglycemia Protocol Glucose 15 gm 07/29/23 00:21 Glucose Oral Gel 15 Gm Of Glucse In 37.5 Gm Tube PO PRN PRN Hypoglycemia Protocol Heparin Sodium (Porcine) 5,500 units 07/29/23 10:25 Heparin Sodium 5,000 Units/Ml Vial IV PUSH PRN PRN aPTT less than 55 seconds Heparin Sodium (Porcine) 2,500 units 07/29/23 10:25 Heparin Sodium 5,000 Units/Ml Vial IV PUSH PRN PRN aPTT 55 - 70 sec
[2023-07-31] MEDS: ACETAMINOPHEN 325 MG TABLET 650 MG PO (12:59)
[2023-07-31] MEDS: cefTRIAXone 2 GM/NS 100 ML 2 GM/100 ML BAG IVPB (13:00)
[2023-07-31] MEDS: CENTRAL LINE FLUSH 10 ML IV PUSH ×2 (13:15→22:00)
--- NOTE | 2023-07-31 13:55 | PM.IMPN ---
Progress Note: A&P Assessment and Plan (1) Septic shock: Code(s): A41.9 - Sepsis, unspecified organism; R65.21 - Severe sepsis with septic shock Status: Acute Assessment and Plan: Septic shock likely related to cholangitis, 07/27: Patient presented with nausea, vomiting, fevers, chills, was found to be hypotensive in the ER despite IV fluids per sepsis protocol. PICC line placed in the ER and patient was started on norepinephrine, no longer requiring norepinephrine. BP remains stable. -lactic acid within normal -07/27: Blood cultures: Group B strep and klebsiella pneumoniae -Antibiotics: vancomycin and Zosyn (07/27-07/30), cultures with sensitive to Rocephin, started on 07/30 (2) Cholangitis: Code(s): K83.09 - Other cholangitis Status: Acute Assessment and Plan: 07/03/2023: recent laparoscopic cholecystectomy 07/07: ERCP o for postop bile leak with stent placement 07/27: Patient presented with pneumobilia on CT scan of the abdomen and pelvis along with fluid collection to the gallbladder fossa -CT abdomen and pelvis Impression: -New small amount of air peripherally in the upper right hepatic lobe, unclear whether this is pneumobilia versus parenchymal air. There is also suggestion of subtle ill-defined parenchymal hypodensity surrounding the air in this region. Infective cholangitis/hepatitis is a consideration in this region. -Decreasing fluid collection to gallbladder fossa, now measuring 1.6 cm in diameter. -Common bile duct and main pancreatic stents in place. 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 GI has evaluated the patient,s/p ERCP with stent removal on 07/30/2023 -surgery also following the patient, no surgical intervention required at this time -continue antibiotics as above (3) Type 2 diabetes mellitus: Qualifiers: Diabetes mellitus long term care pharmacist insulin use: with half-way use Diabetes mellitus complication status: with hyperglycemia Qualified Code(s): E11.65 - Type 2 diabetes mellitus with hyperglycemia; Z79.4 - retirement (current) use of insulin Code(s): E11.9 - Type 2 diabetes mellitus without complications Status: Acute Assessment and Plan: - hypoglycemia protocol - POC blood glucose ACHS - home medication - tresibar 26 units daily, novolog 5 units PRN, metformin 500 mg daily, linagliptin 5 mg daily, and jardiance 25 mg daily - correct regimen ordered - low dose TIDWM and HS - A1C 07/06/23: 6.1 (4) A-fib: Code(s): I48.91 - Unspecified atrial fibrillation Status: Acute Assessment and Plan: Patient on Eliquis and metoprolol at home for AFib -07/28 started on heparin infusion, -hold metoprolol for now since patient is in sinus rhythm, rate controlled and on vasopressors -if patient goes into AFib RVR will have to use amiodarone infusion -07/29: Holding heparin infusion for ERCP today 07/30/2023 -07/30: Heparin infusion restarted Subjective Date/time seen: 07/31/23 13:55 Interval history: Patient is pleasant lying in bed. She reports feeling much better today. She was transferred out of the ICU overnight and now on a medical floor. She underwent an ERCP with stent removal yesterday. Her WBC continues to downtrend with antibiotics and she remains afebrile. Blood cultures are positive for group B strep and klebsiella, sensitive to rocephin. Antibiotics transitioned to rocephin. She denies chest pain, shortness of breath, nausea/vomiting and changes in bowel/bladder. Review of Systems Review of Systems: All systems reviewed & are unremarkable except as noted in HPI and below Exam Narrative: AF HR 74 RR 20 SpO2 98 BP 140/74 General: female in no acute respiratory distress who is nontoxic appearing, lying semi recumbent in bed. HEENT: Normocephalic. Atraumatic. Pupils equal round reactive to light. Extraocular movement intact. Sclera clear and anicteric. No facial asymmetry. Chest: Lungs are clear to auscultation agustin
[2023-07-31 14:00] VITALS: BP 140/74; PULSE 74; RESP 20; TEMP 36.3; O2SAT 98
--- NOTE | 2023-07-31 15:04 | WPDGIPROGNO ---
Progress Note: A&P Assessment and Plan (1) Bacteremia: Code(s): R78.81 - Bacteremia Status: Acute Assessment and Plan: on iv abx probably source of infection was cholangitis but stents already removed and sweeping of bile duct normal liver enzymes, less pain and more comfortable no more bile leak (2) Sepsis: Code(s): A41.9 - Sepsis, unspecified organism Status: Acute Assessment and Plan: on treatment (3) Cholangitis: Code(s): K83.09 - Other cholangitis Status: Acute (4) Anemia of chronic disease: Code(s): D63.8 - Anemia in other chronic diseases classified elsewhere Status: Acute (5) Bile leak, postoperative: Code(s): K91.89 - Other postprocedural complications and disorders of digestive system; K83.8 - Other specified diseases of biliary tract Status: Acute Assessment and Plan: occlusion cholangiogram after stent was removed without any more bile leak she does not need another ercp (6) Paroxysmal A-fib: Code(s): I48.0 - Paroxysmal atrial fibrillation Status: Acute Subjective Date/time seen: 07/31/23 15:04 Interval history: ercp yesterday with removal of PD and BD stents, then swept bile duct multiple times until clear. No more bile leak. Review of Systems Review of Systems: All systems reviewed & are unremarkable except as noted in HPI and below Exam Const: General: no acute distress HENMT: Face/Nose/Sinus: Normal nares present Eyes: Sclera: sclerae normal Neck: Neck: supple Resp: Effort & Inspection: normal respiratory effort Cardio: Rate: regular rate GI: Inspection: non-distended and incision (port site incisions are well healed with no erythema) GI Palp: Yes Soft to palpation, Yes Tenderness to palpation present (GI) (mild RUQ tenderness), No Guarding due to palpation present (GI) and No Rebound tenderness present Auscultation: normal bowel sounds Other: Skin: General skin exam: no rashes or lesions noted Neuro: Speech: normal speech Motor exam (neuro): 5/5 motor strength present throughout Extrem: General: normal to inspection Psych: Mental Status: mental status grossly normal Objective Data Vital Signs Vital Signs: Vital Signs - 24 hr 07/30/23 16:00 07/30/23 22:00 07/30/23 20:00 Temperature 99.0 F 97.6 F Pulse Rate 76 63 63 Respiratory Rate 15 20 20 Blood Pressure 119/65 133/70 Pulse Oximetry 98 99 99 Oxygen Delivery Room Air 07/31/23 06:00 07/31/23 14:00 Temperature 97.0 F L 97.3 F L Pulse Rate 68 74 Respiratory Rate 20 20 Blood Pressure 113/59 L 140/74 Pulse Oximetry 98 98 Oxygen Delivery Intake/Output Intake/Output: Intake & Output 07/28/23 07/29/23 07/30/23 07/31/23 23:59 23:59 23:59 23:59 Intake Total 1069.8 3334.0 3331.2 2200 Output Total 750 1000 800 Balance 1069.8 2584.0 2331.2 1400 Meds/Results Medications: Active Medications Generic Name Dose Route Start Last Admin Trade Name Freq PRN Reason Stop Dose Admin Acetaminophen 650 mg 07/28/23 22:39 07/31/23 12:59 Acetaminophen 325 Mg Tablet PO 650 mg Q6H PRN Administration Pain 1-5 or fever Al Hydrox/Mg Hydrox/Simethicone 30 ml 07/29/23 00:18 Mag Hydrox/Al Hydrox/Simeth 30 Ml Udc PO QID PRN Dyspepsia Buspirone HCl 5 mg 07/29/23 09:00 Buspirone Hcl 5 Mg Tablet PO BID ADAM Dextrose 12.5 gm 07/29/23 00:21 07/30/23 07:56 Dextrose 50% 25 Gm/50 Ml Syringe IV PUSH 12.5 gm PRN PRN Administration Hypoglycemia Protocol Diphenhydramine HCl 25 mg 07/28/23 22:38 07/30/23 20:55 Diphenhydramine Hcl Inj 50 Mg/Ml Vial IV PUSH 25 mg Q3H PRN Administration Itching Empagliflozin 25 mg 07/29/23 09:00 Empagliflozin 25 Mg Tablet PO DAILY ADAM Escitalopram Oxalate 20 mg 07/29/23 21:00 Escitalopram Oxalate 10 Mg Tablet PO HS ADAM Gabapentin 300 mg 07/29/23 09:00 07/31/23 08:15 Gabapentin 3
[2023-07-31 16:34] LABS: Glucose Point of Care 183 mg/dl (65-105)
[2023-07-31 20:00] VITALS: O2SAT 98
[2023-07-31 20:39] VITALS: BP 139/74; PULSE 72; RESP 18; TEMP 36.4; O2SAT 98
[2023-07-31 22:06] LABS: Glucose Point of Care 197 mg/dl (65-105)
[2023-08-01] MEDS: ACETAMINOPHEN 325 MG TABLET 650 MG PO ×3 (04:16→17:28)
[2023-08-01] MEDS: CENTRAL LINE FLUSH 10 ML IV PUSH ×3 (05:30→20:00)
[2023-08-01 05:42] LABS: Basophils Absolute Auto 0.1 K/mm3 (0.0-0.1); Basophils Percent Auto 0.5 % (0.2-1.2); Eosinophils Absolute Auto 0.3 K/mm3 (0-0.3); Eosinophils Percent Auto 2.6 % (0-4.4); Hematocrit 24.9 % (37.0-47.0); Hemoglobin 7.8 g/dL (12.0-15.0); Immature Granulocyte Absolute 0.11 K/mm3 (0.00-0.031); Immature Granulocyte Percent A 1.1 % (0-0.5); Lymphocytes Absolute Auto 2.15 K/mm3 (0.9-3.2); Lymphocytes Percent Auto 20.7 % (18.3-44.2); Mean Corpuscular HGB Conc 31.3 g/dl (32-36); Mean Corpuscular Hemoglobin 26.7 pg (26-34); Mean Corpuscular Volume 85.3 fl (80-100); Mean Platelet Volume 10.6 fl (7.4-10.4); Monocytes Absolute Auto 0.9 K/mm3 (0.1-0.6); Monocytes Percent Auto 8.6 % (2.6-8.5); Neutrophils Absolute Auto 6.9 K/mm3 (1.3-6.7); Neutrophils Percent Auto 66.5 % (45.5-73.1); Platelet Count Result 246 k/mm3 (150-375); Red Blood Count 2.92 M/mm3 (4.2-5.4); Red Cell Distribution Width 15.8 % (11.5-14.5); White Blood Count 10.4 K/mm3 (4.5-10.0)
[2023-08-01 05:51] VITALS: BP 151/79; PULSE 79; RESP 18; TEMP 36.4; O2SAT 95
[2023-08-01 05:55] LABS: Alanine Aminotransferase 13 U/L (6-35); Albumin Level 2.6 g/dL (3.5-5.1); Alkaline Phosphatase 99 U/L (38-126); Anion Gap 4 mmol/L (4-12); Aspartate Amino Transferase 19 U/L (14-36); Bilirubin,Total 0.3 mg/dL (0.2-1.3); Blood Urea Nitrogen 17 mg/dL (7-17); Calcium 7.7 mg/dL (8.4-10.2); Carbon Dioxide 25 mmol/L (22-30); Chloride 110 mmol/L (98-107); Estimated CRCL calculation 59 ml/min; Estimated Glomerular Filt Rate > 60; Glucose 123 mg/dL (65-110); Potassium 3.6 mmol/L (3.4-5.0); Sodium 139 mmol/L (137-145)
[2023-08-01 08:14] LABS: Glucose Point of Care 117 mg/dl (65-105)
--- NOTE | 2023-08-01 08:15 | PM.IMPN ---
Progress Note: A&P Assessment and Plan (1) Septic shock: Code(s): A41.9 - Sepsis, unspecified organism; R65.21 - Severe sepsis with septic shock Status: Acute Assessment and Plan: Septic shock likely related to cholangitis, 07/27: Patient presented with nausea, vomiting, fevers, chills, was found to be hypotensive in the ER despite IV fluids per sepsis protocol. PICC line placed In the ER and patient was started on norepinephrine, no longer requiring norepinephrine. BP remains stable. - Lactic acid within normal - Blood cultures drawn on 07/27: Group B strep and klebsiella pneumoniae - Blood cultures drawn on 07/30: NGTD -Antibiotics: vancomycin and Zosyn (07/27-07/30), cultures sensitive to Rocephin, started on 07/30 - WBC continues to downtrend, vital signs remain stable (2) Cholangitis: Code(s): K83.09 - Other cholangitis Status: Acute Assessment and Plan: 07/03/2023: recent laparoscopic cholecystectomy 07/07: ERCP o for postop bile leak with stent placement 07/27: Patient presented with pneumobilia on CT scan of the abdomen and pelvis along with fluid collection to the gallbladder fossa -CT abdomen and pelvis Impression: -New small amount of air peripherally in the upper right hepatic lobe, unclear whether this is pneumobilia versus parenchymal air. There is also suggestion of subtle ill-defined parenchymal hypodensity surrounding the air in this region. Infective cholangitis/hepatitis is a consideration in this region. -Decreasing fluid collection to gallbladder fossa, now measuring 1.6 cm in diameter. -Common bile duct and main pancreatic stents in place. -Trace pelvic ascites, likely related to HAT BLOCK MAKER shunt. GI has evaluated the patient,s/p ERCP with stent removal on 07/30/2023. No bile leak noted. -surgery also following the patient, no surgical intervention required at this time -continue antibiotics as above (3) Type 2 diabetes mellitus: Qualifiers: Diabetes mellitus complication status: with hyperglycemia Diabetes mellitus fdc insulin use: with fdc use Qualified Code(s): E11.65 - Type 2 diabetes mellitus with hyperglycemia; Z79.4 - retirement (current) use of insulin Code(s): E11.9 - Type 2 diabetes mellitus without complications Status: Acute Assessment and Plan: - hypoglycemia protocol - POC blood glucose ACHS - home medication - tresibar 26 units daily, novolog 5 units PRN, metformin 500 mg daily, linagliptin 5 mg daily, and jardiance 25 mg daily - correct regimen ordered - low dose TIDWM and HS - A1C 07/06/23: 6.1 (4) A-fib: Code(s): I48.91 - Unspecified atrial fibrillation Status: Acute Assessment and Plan: Patient on Eliquis and metoprolol at home for AFib -07/28 started on heparin infusion, holding Eliquis for ERCP -07/29: Holding heparin infusion for ERCP -07/31: metoprolol and eliquis resumed Time Spent With Patient Time with patient: 25 - 35 minutes Subjective Date/time seen: 08/01/23 08:15 Interval history: Patient is pleasant lying comfortably in bed. She reports mild abdominal pain that she equates to hunger as she has not eaten breakfast yet. Her WBC continues to downtrend and vitals remain stable. Blood cultures drawn on 07/27 grew Group B strep and klebsiella pneumoniae. Patient remains on IV rocephin. Blood cultures drawn on 07/30 with NGTD. Patient restarted on her metoprolol and eliquis as there is no need for another ERCP per GI. Patient had a successful voiding trial. Will continue to monitor I/O. Patient had an episode of loose watery stool per nursing. Will obtain a sample if this recurs. Patient denies chest pain, shortness of breath, nausea/vomiting and changes in bladder. Review of Systems Review of Systems: All systems reviewed & are unremarkable except as noted in HPI and below Exam Narrative: AF HR 91 RR 20 SpO2 100 BP 136/82 General: female in no acute respiratory distress who is nontoxic appe
[2023-08-01] MEDS: cefTRIAXone 2 GM/NS 100 ML 2 GM/100 ML BAG IVPB (08:50)
[2023-08-01] MEDS: GABAPENTIN 300 MG CAPSULE PO ×2 (08:50→17:27)
[2023-08-01 08:52] VITALS: PULSE 79
[2023-08-01] MEDS: METOPROLOL TARTRATE 25 MG TABLET PO ×2 (08:52→20:17)
--- NOTE | 2023-08-01 09:57 | PM.PNGS ---
Progress Note: A&P Assessment and Plan (1) Septic shock: Code(s): A41.9 - Sepsis, unspecified organism; R65.21 - Severe sepsis with septic shock Status: Acute Assessment and Plan: Sepsis resolving. Etiology unclear at this point. Blood cultures positive for group B strep and klebsiella. No evidence of cholangitis on ERCP. Biliary and pancreatic stents were removed. No evidence of a persistent bile leak on cholangiogram during ERCP. No surgical indications at this time. Continue antibiotics and management per primary service. We will sign off at this time. Call with any surgical questions or concerns. Plan I have discussed the patient's case and plan of care with Dr. Keller. Subjective Subjective Date/Time Seen: 08/01/23 09:57 Patient reports: no new complaints and afebrile Interval history: Patient seen today with no new come and. He still will feels tired, which is her main concern. Denies any abdominal pain, nausea, or vomiting. She has not been eating much, but this is due to the food. She reports having a good appetite and tolerating her food well. She will ask family to bring in some food that she likes. Exam Const: General: no acute distress GI: Inspection: non-distended and incision (port site incisions are well healed with no erythema) GI Palp: Yes Soft to palpation, Yes Tenderness to palpation present (GI) (mild improving tenderness in the RUQ), No Guarding due to palpation present (GI) and No Rebound tenderness present Auscultation: normal bowel sounds Objective Data Vital Signs Vital Signs: Vital Signs - 24 hr 07/31/23 14:00 07/31/23 20:39 07/31/23 20:00 Temperature 97.3 F L 97.6 F Pulse Rate 74 72 Respiratory Rate 20 18 Blood Pressure 140/74 139/74 Pulse Oximetry 98 98 98 Oxygen Delivery Room Air 08/01/23 05:51 08/01/23 08:52 Temperature 97.6 F Pulse Rate 79 79 Respiratory Rate 18 Blood Pressure 151/79 H Pulse Oximetry 95 Oxygen Delivery Intake/Output Intake/Output: Intake & Output 07/29/23 07/30/23 07/31/23 08/01/23 23:59 23:59 23:59 23:59 Intake Total 3334.0 3331.2 4090 Output Total 750 1000 975 850 Balance 2584.0 2331.2 3115 -850 Meds/Results Medications: Active Medications Generic Name Dose Route Start Last Admin Trade Name Freq PRN Reason Stop Dose Admin Acetaminophen 650 mg 07/28/23 22:39 08/01/23 04:16 Acetaminophen 325 Mg Tablet PO 650 mg Q6H PRN Administration Pain 1-5 or fever Al Hydrox/Mg Hydrox/Simethicone 30 ml 07/29/23 00:18 Mag Hydrox/Al Hydrox/Simeth 30 Ml Udc PO QID PRN Dyspepsia Buspirone HCl 5 mg 07/29/23 09:00 Buspirone Hcl 5 Mg Tablet PO BID ADAM Dextrose 12.5 gm 07/29/23 00:21 07/30/23 07:56 Dextrose 50% 25 Gm/50 Ml Syringe IV PUSH 12.5 gm PRN PRN Administration Hypoglycemia Protocol Diphenhydramine HCl 25 mg 07/28/23 22:38 07/30/23 20:55 Diphenhydramine Hcl Inj 50 Mg/Ml Vial IV PUSH 25 mg Q3H PRN Administration Itching Empagliflozin 25 mg 07/29/23 09:00 Empagliflozin 25 Mg Tablet PO DAILY ADAM Escitalopram Oxalate 20 mg 07/29/23 21:00 Escitalopram Oxalate 10 Mg Tablet PO HS ADAM Gabapentin 300 mg 07/29/23 09:00 08/01/23 08:50 Gabapentin 300 Mg Capsule PO 300 mg BID ADAM Administration Glucagon 1 mg 07/29/23 00:21 Glucagon For Inj 1 Mg Vial IM PRN PRN Hypoglycemia Protocol Glucose 15 gm 07/29/23 00:21 Glucose Oral Gel 15 Gm Of Glucse In 37.5 Gm Tube PO PRN PRN Hypoglycemia Protocol Heparin Sodium (Porcine) 5,500 units 07/29/23 10:25 Heparin Sodium 5,000 Units/Ml Vial IV PUSH PRN PRN aPTT less than 55 seconds Heparin Sodium (Porcine) 2,500 units 07/29/23 10:25 Heparin Sodium 5,000 Units/Ml Vial IV PUSH PRN PRN aPTT 55 - 70 seconds Hydromorphone HCl 0.5 mg 07/28/23 22:37 07/30/23 20:55 Hydromorphone Hcl Inj (*Crx) 1 Mg/
[2023-08-01 10:54] VITALS: O2SAT 93
[2023-08-01 11:20] LABS: Iron 24 ug/dL (37-170)
[2023-08-01 11:30] LABS: Percent Iron Saturation 14 % (20-50)
[2023-08-01 11:49] LABS: Glucose Point of Care 152 mg/dl (65-105)
[2023-08-01 14:00] VITALS: BP 136/82; PULSE 91; RESP 20; TEMP 35.6; O2SAT 100
[2023-08-01 16:51] LABS: Glucose Point of Care 185 mg/dl (65-105)
--- NOTE | 2023-08-01 17:18 | WPDGIPROGNO ---
Progress Note: A&P Assessment and Plan (1) Bacteremia: Code(s): R78.81 - Bacteremia Status: Acute Assessment and Plan: on iv abx probably source of infection was cholangitis but stents already removed and bile duct swept until clear bile obtained (initially noted clots) normal liver enzymes, less pain and more comfortable no more bile leak (2) Sepsis: Code(s): A41.9 - Sepsis, unspecified organism Status: Acute Assessment and Plan: on treatment, improved (3) Cholangitis: Code(s): K83.09 - Other cholangitis Status: Acute Assessment and Plan: probably source of bacteremia but stents removed now (4) Anemia of chronic disease: Code(s): D63.8 - Anemia in other chronic diseases classified elsewhere Status: Acute Assessment and Plan: monitor for signs of bleeding back on blood thinners because heart history (5) Bile leak, postoperative: Code(s): K91.89 - Other postprocedural complications and disorders of digestive system; K83.8 - Other specified diseases of biliary tract Status: Acute Assessment and Plan: occlusion cholangiogram after stent was removed without any more bile leak she does not need another ercp (6) Paroxysmal A-fib: Code(s): I48.0 - Paroxysmal atrial fibrillation Status: Acute Subjective Date/time seen: 08/01/23 17:18 Interval history: continues to improve, more appetite Review of Systems Review of Systems: All systems reviewed & are unremarkable except as noted in HPI and below Exam Const: General: no acute distress HENMT: Face/Nose/Sinus: Normal nares present Eyes: Sclera: sclerae normal Neck: Neck: supple Resp: Effort & Inspection: normal respiratory effort Cardio: Rate: regular rate GI: Inspection: non-distended and incision (port site incisions are well healed with no erythema) GI Palp: Yes Soft to palpation, No Guarding due to palpation present (GI) and No Rebound tenderness present Auscultation: normal bowel sounds Other: Skin: General skin exam: no rashes or lesions noted Neuro: Speech: normal speech Motor exam (neuro): 5/5 motor strength present throughout Extrem: General: normal to inspection Psych: Mental Status: mental status grossly normal Objective Data Vital Signs Vital Signs: Vital Signs - 24 hr 07/31/23 20:39 07/31/23 20:00 06/13/24 05:51 Temperature 97.6 F 97.6 F Pulse Rate 72 79 Respiratory Rate 18 18 Blood Pressure 139/74 151/79 H Pulse Oximetry 98 98 95 Oxygen Delivery Room Air 08/01/23 08:52 08/01/23 08:00 08/01/23 10:54 Temperature Pulse Rate 79 Respiratory Rate Blood Pressure Pulse Oximetry 93 Oxygen Delivery Room Air Room Air 08/01/23 11:26 08/01/23 14:09 08/01/23 14:00 Temperature 96.1 F L Pulse Rate 91 Respiratory Rate 20 Blood Pressure 136/82 Pulse Oximetry 100 Oxygen Delivery Room Air Room Air Intake/Output Intake/Output: Intake & Output 07/29/23 07/30/23 07/31/23 08/01/23 23:59 23:59 23:59 23:59 Intake Total 3334.0 3331.2 4090 1600 Output Total 750 1000 975 850 Balance 2584.0 2331.2 3115 750 Meds/Results Medications: Active Medications Generic Name Dose Route Start Last Admin Trade Name Freq PRN Reason Stop Dose Admin Acetaminophen 650 mg 07/28/23 22:39 08/01/23 10:50 Acetaminophen 325 Mg Tablet PO 650 mg Q6H PRN Administration Pain 1-5 or fever Al Hydrox/Mg Hydrox/Simethicone 30 ml 07/29/23 00:18 Mag Hydrox/Al Hydrox/Simeth 30 Ml Udc PO QID PRN Dyspepsia Apixaban 5 mg 08/01/23 21:00 Apixaban 5 Mg Tablet PO Q12HR ADAM Buspirone HCl 5 mg 07/29/23 09:00 Buspirone Hcl 5 Mg Tablet PO BID ADAM Dextrose 12.5 gm 07/29/23 00:21 07/30/23 07:56 Dextrose 50% 25 Gm/50 Ml Syringe IV PUSH 12.5 gm PRN PRN Administration Hypoglycemia Protocol Diphenhydramine HCl 25 mg 07/28/23 22:38 0
[2023-08-01] MEDS: diphenhydrAMINE HCl INJ 50 MG/ML VIAL 25 MG IV PUSH (18:30)
[2023-08-01] MEDS: LACTATED RINGERS 1,000 ML 100 ML IV CONT (19:58)
[2023-08-01] MEDS: APIXABAN 5 MG TABLET PO (20:18)
[2023-08-01] MEDS: traZODone HCL 50 MG TABLET PO (20:18)
[2023-08-01 22:00] VITALS: BP 160/85; PULSE 94; RESP 18; TEMP 36.4; O2SAT 98
[2023-08-01 22:04] LABS: Glucose Point of Care 199 mg/dl (65-105)
[2023-08-02] MEDS: ACETAMINOPHEN 325 MG TABLET 650 MG PO ×2 (01:17→08:18)
[2023-08-02 05:05] VITALS: BP 137/88; PULSE 82; RESP 18; TEMP 37.2; O2SAT 98
[2023-08-02] MEDS: CENTRAL LINE FLUSH 10 ML IV PUSH ×3 (05:09→21:36)
[2023-08-02] MEDS: LACTATED RINGERS 1,000 ML 100 ML IV CONT ×2 (05:31→21:34)
[2023-08-02 07:46] LABS: Basophils Absolute Auto 0.1 K/mm3 (0.0-0.1); Basophils Percent Auto 0.9 % (0.2-1.2); Eosinophils Absolute Auto 0.5 K/mm3 (0-0.3); Eosinophils Percent Auto 4.7 % (0-4.4); Hematocrit 27.4 % (37.0-47.0); Hemoglobin 8.2 g/dL (12.0-15.0); Immature Granulocyte Absolute 0.13 K/mm3 (0.00-0.031); Immature Granulocyte Percent A 1.3 % (0-0.5); Lymphocytes Absolute Auto 2.72 K/mm3 (0.9-3.2); Lymphocytes Percent Auto 26.3 % (18.3-44.2); Mean Corpuscular HGB Conc 29.9 g/dl (32-36); Mean Corpuscular Hemoglobin 25.6 pg (26-34); Mean Corpuscular Volume 85.6 fl (80-100); Mean Platelet Volume 11.1 fl (7.4-10.4); Monocytes Absolute Auto 1.1 K/mm3 (0.1-0.6); Monocytes Percent Auto 10.9 % (2.6-8.5); Neutrophils Absolute Auto 5.8 K/mm3 (1.3-6.7); Neutrophils Percent Auto 55.9 % (45.5-73.1); Nucleated Red Blood Cells Perc 0.2 % (0.0-0.2); Platelet Count Result 285 k/mm3 (150-375); Red Cell Distribution Width 15.8 % (11.5-14.5); White Blood Count 10.4 K/mm3 (4.5-10.0)
[2023-08-02 07:48] LABS: Glucose Point of Care 146 mg/dl (65-105)
[2023-08-02 08:16] LABS: Alanine Aminotransferase 11 U/L (6-35); Albumin Level 2.5 g/dL (3.5-5.1); Alkaline Phosphatase 100 U/L (38-126); Anion Gap 1 mmol/L (4-12); Aspartate Amino Transferase 17 U/L (14-36); Bilirubin,Total 0.3 mg/dL (0.2-1.3); Blood Urea Nitrogen 9 mg/dL (7-17); Calcium 7.8 mg/dL (8.4-10.2); Carbon Dioxide 29 mmol/L (22-30); Chloride 109 mmol/L (98-107); Estimated CRCL calculation 76 ml/min; Estimated Glomerular Filt Rate > 60; Glucose 148 mg/dL (65-110); Potassium 3.3 mmol/L (3.4-5.0); Sodium 139 mmol/L (137-145)
[2023-08-02 08:18] VITALS: PULSE 84
[2023-08-02] MEDS: APIXABAN 5 MG TABLET PO ×2 (08:18→21:36)
[2023-08-02] MEDS: SACCHAROMYCES BOULARDII 250 MG CAPSULE PO (08:18)
[2023-08-02] MEDS: METOPROLOL TARTRATE 25 MG TABLET PO ×2 (08:18→21:35)
[2023-08-02] MEDS: cefTRIAXone 2 GM/NS 100 ML 2 GM/100 ML BAG IVPB (08:19)
[2023-08-02] MEDS: GABAPENTIN 300 MG CAPSULE PO ×2 (08:19→15:49)
[2023-08-02] MEDS: POTASSIUM CHLORIDE 20 MEQ ER TABLET 40 MEQ PO (08:46)
[2023-08-02 09:31] LABS: Hypochromasia 2+; Platelet Estimate Adequate (Adequate)
[2023-08-02 09:32] LABS: Schistocytes Rare
--- NOTE | 2023-08-02 11:04 | PCNFU ---
Nutrition Follow-Up Complete: Severe protein calorie malnutrition related to acute intra-abdominal infection, sepsis as evidenced by weight loss 9%/3 months; Intakes <50% needs >5 days. Goal: Diet advancement - Goal Met Improve PO intake once medically able - Meeting goal Continue with same goals Pt current nutrition is Diabetic consistent carb diet, intakes 10-100% with Glucerna BID for additional 220 kcal and 8 g protein each . Nutrition recommendation: No new nutrition recommendations. Continue with current nutrition care plan and orders. Agree with orders Last recorded weight is 78.9 kg. Bowel Motility: +2 BMs 08/01/23 Labs Reviewed: Hgb 8.2, Hct 27.4, Alb 2.5, K+ 3.3, Cre 0.6, Glu 148 Meds Noted: Lactated ringers, Zofran, florastor Skin: No pressure injuries Additional Notes: Appetite improving. Pt does not like the food so intakes are not 100%. Family can bring in food. Continue with current orders Monitoring intakes, weights, labs, diet advancement plan of care Follow up every 5 days
--- NOTE | 2023-08-02 11:20 | PCOTNOTE ---
Upon entering the room to attempt OT treatment session at this time. Patient's hospitalist present and verbalized, no treatment right now, I'm going to order a stat CT of abdomen .
--- NOTE | 2023-08-02 11:40 | PM.IMPN ---
Progress Note: A&P Assessment and Plan (1) Septic shock: Code(s): A41.9 - Sepsis, unspecified organism; R65.21 - Severe sepsis with septic shock Status: Acute Assessment and Plan: Septic shock likely related to cholangitis, 07/27: Patient presented with nausea, vomiting, fevers, chills, was found to be hypotensive in the ER despite IV fluids per sepsis protocol. PICC line placed In the ER and patient was started on norepinephrine, no longer requiring norepinephrine. BP remains stable. - Lactic acid within normal - Blood cultures drawn on 07/27: Group B strep and klebsiella pneumoniae - Blood cultures drawn on 07/30: NGTD -Antibiotics: vancomycin and Zosyn (07/27-07/30), cultures sensitive to Rocephin, started on 07/30 - WBC continues to downtrend, vital signs remain stable (2) Cholangitis: Code(s): K83.09 - Other cholangitis Status: Acute Assessment and Plan: 07/03/2023: recent laparoscopic cholecystectomy 07/07: ERCP o for postop bile leak with stent placement 07/27: Patient presented with pneumobilia on CT scan of the abdomen and pelvis along with fluid collection to the gallbladder fossa -CT abdomen and pelvis Impression: -New small amount of air peripherally in the upper right hepatic lobe, unclear whether this is pneumobilia versus parenchymal air. There is also suggestion of subtle ill-defined parenchymal hypodensity surrounding the air in this region. Infective cholangitis/hepatitis is a consideration in this region. -Decreasing fluid collection to gallbladder fossa, now measuring 1.6 cm in diameter. -Common bile duct and main pancreatic stents in place. -Trace pelvic ascites, likely related to PHARMACY CARE COORDINATOR shunt. GI has evaluated the patient,s/p ERCP with stent removal on 07/30/2023. No bile leak noted. -surgery also following the patient, no surgical intervention required at this time -continue antibiotics as above 08/01: Patient endorsing worsening abdominal pain with bloating on exam. WBC stable. Afebrile. Vitals WNL. - CT abdomen and pelvis Impressions: - 2 persistent areas of focal, parenchymal air-fluid collections towards the dome of the liver, similar to prior exam. Focal hepatic abscesses are suspected, versus possibly other postprocedural or iatrogenic change. - Spoke with radiologist who states that the abscess is too small to drain. Discussed this with surgery who states transfer is not required at this time. Patient will likely require a longer course of IV antibiotics. Will discuss this with ID pharmacy in the am. 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 Qualified Code(s): E11.65 - Type 2 diabetes mellitus with hyperglycemia; Z79.4 - shelter (current) use of insulin Code(s): E11.9 - Type 2 diabetes mellitus without complications Status: Acute Assessment and Plan: - hypoglycemia protocol - POC blood glucose ACHS - home medication - tresibar 26 units daily, novolog 5 units PRN, metformin 500 mg daily, linagliptin 5 mg daily, and jardiance 25 mg daily - correct regimen ordered - low dose TIDWM and HS - A1C 07/06/23: 6.1 (4) A-fib: Code(s): I48.91 - Unspecified atrial fibrillation Status: Acute Assessment and Plan: Patient on Eliquis and metoprolol at home for AFib -07/28 started on heparin infusion, holding Eliquis for ERCP -07/29: Holding heparin infusion for ERCP -07/31: metoprolol and eliquis resumed Time Spent With Patient Time with patient: 25 - 35 minutes Subjective Date/time seen: 08/02/23 11:40 Interval history: Patient complaining of worsening abdominal pain with noted bloating on exam. WBC stable. Afebrile. Vitals WNL. CT abdomen/pelvis revealed 2 persistent areas of focal, parenchymal air-fluid collections towards the dome of the liver, similar to prior exam. Focal hepatic abscesses are suspected, versus poss
[2023-08-02 11:49] LABS: Glucose Point of Care 193 mg/dl (65-105)
[2023-08-02 13:05] LABS: Lipase 87 U/L (23-300)
[2023-08-02 14:00] VITALS: BP 152/79; PULSE 99; RESP 18; TEMP 36.6; O2SAT 98
--- NOTE | 2023-08-02 14:15 | PCOTNOTE ---
Per RN, Patient is ok to be seen for therapy services. Patient refused to participate, stated, she feels horrible today, they are running tests on me, I can't do anything today .
[2023-08-02 14:42] LABS: Lactic Acid Reflex 0.8 mmol/L (0.7-2.0)
--- NOTE | 2023-08-02 15:03 | WPDPN ---
Progress Note: A&P Assessment and Plan (1) Bacteremia: Code(s): R78.81 - Bacteremia Status: Acute Assessment and Plan: Sepsis and bacteremia has markedly improved with IV antibiotics. CT scan of pelvis shows possible development of small right hepatic abscesses. I recommended to the hospitalist that she talk with the interventional radiologists here at [facility] to see if the abscesses are large enough to percutaneously drained by CT guidance. If they are amenable to percutaneous drainage placing the drains. If they are not amenable to IR drainage here at [facility] the she will need to be transferred to higher level of care to facility in [place] [employer] where they can either try to drain the abscesses percutaneously in IR or consult a hepatobiliary surgeon to evaluate the patient. (2) Cholangitis: Code(s): K83.09 - Other cholangitis Status: Acute Subjective Date/time seen: 08/02/23 15:03 Interval history: Patient has better appetite does feel better. White blood cell count is stable at 10,[address] or CT scan abdomen pelvis which showed a possible developing abscess in the right lobe of the liver. Small fluid collection in the gallbladder fossa is decreased in size. Exam GI: Other: Abdomen is soft and nondistended. Port site incisions are healing well. Benign exam. Objective Data Vital Signs Vital Signs: Vital Signs - 24 hr 08/01/23 20:00 08/01/23 22:00 08/02/23 05:05 Temperature 36.4 C L 37.2 C Pulse Rate 94 82 Respiratory Rate 18 18 Blood Pressure 160/85 H 137/88 Pulse Oximetry 98 98 Oxygen Delivery Room Air 08/02/23 08:18 08/02/23 08:00 Temperature Pulse Rate 84 Respiratory Rate Blood Pressure Pulse Oximetry Oxygen Delivery Room Air Intake/Output Intake/Output: Intake & Output 07/30/23 07/31/23 08/01/23 08/02/23 23:59 23:59 23:59 23:59 Intake Total 3331.2 4090 3810 1495 Output Total 5403 194 2364 Balance 2331.2 3115 710 1495 Meds/Results Medications: Active Medications Generic Name Dose Route Start Last Admin Trade Name Freq PRN Reason Stop Dose Admin Acetaminophen 650 mg 07/28/23 22:39 08/02/23 08:18 Acetaminophen 325 Mg Tablet PO 650 mg Q6H PRN Administration Pain 1-5 or fever Al Hydrox/Mg Hydrox/Simethicone 30 ml 07/29/23 00:18 Mag Hydrox/Al Hydrox/Simeth 30 Ml Udc PO QID PRN Dyspepsia Apixaban 5 mg 08/01/23 21:00 08/02/23 08:18 Apixaban 5 Mg Tablet PO 5 mg Q12HR ADAM Administration Buspirone HCl 5 mg 07/29/23 09:00 Buspirone Hcl 5 Mg Tablet PO BID ADAM Dextrose 12.5 gm 07/29/23 00:21 07/30/23 07:56 Dextrose 50% 25 Gm/50 Ml Syringe IV PUSH 12.5 gm PRN PRN Administration Hypoglycemia Protocol Diphenhydramine HCl 25 mg 07/28/23 22:38 08/01/23 18:30 Diphenhydramine Hcl Inj 50 Mg/Ml Vial IV PUSH 25 mg Q3H PRN Administration Itching Empagliflozin 25 mg 07/29/23 09:00 Empagliflozin 25 Mg Tablet PO DAILY ADAM Escitalopram Oxalate 20 mg 07/29/23 21:00 Escitalopram Oxalate 10 Mg Tablet PO HS ADAM Gabapentin 300 mg 07/29/23 09:00 08/02/23 08:19 Gabapentin 300 Mg Capsule PO 300 mg BID ADAM Administration Glucagon 1 mg 07/29/23 00:21 Glucagon For Inj 1 Mg Vial IM PRN PRN Hypoglycemia Protocol Glucose 15 gm 07/29/23 00:21 Glucose Oral Gel 15 Gm Of Glucse In 37.5 Gm Tube PO PRN PRN Hypoglycemia Protocol Hydromorphone HCl 0.5 mg 07/28/23 22:37 07/30/23 20:55 Hydromorphone Hcl Inj (*Crx) 1 Mg/Ml Syr IV PUSH 0.5 mg Q3H PRN Administration Pain rated 6-10 Lactated Ringer's 1,000 mls @ 100 mls/hr 07/28/23 20:30 08/02/23 05:31 Lr - Lactated Ringers Iv IV CONT 100 mls/hr .Q10H ADAM Administration Dextrose 1,000 mls @ 100 mls/hr 07/29/23 00:21 Dextrose 5% 1,000 Ml IVPB PRN PRN Hypoglycem
--- NOTE | 2023-08-02 15:47 | WPDGIPROGNO ---
Progress Note: A&P Assessment and Plan (1) Bacteremia: Code(s): R78.81 - Bacteremia Status: Acute Assessment and Plan: on iv abx repeat CT scan possible fluid collection in liver hopefully IR can drain it otherwise will need transfer to tertiary hospital responding to antibiotics, stents also removed and she does not have any more bile leak normal liver enzymes (2) Sepsis: Code(s): A41.9 - Sepsis, unspecified organism Status: Acute Assessment and Plan: on treatment, improved but CT scan showed possible liver abscess (3) Cholangitis: Code(s): K83.09 - Other cholangitis Status: Acute Assessment and Plan: stents removed (4) Anemia of chronic disease: Code(s): D63.8 - Anemia in other chronic diseases classified elsewhere Status: Acute Assessment and Plan: monitor for signs of bleeding back on blood thinners because heart history- probably will need to hold off again if she needs more intervention (5) Bile leak, postoperative: Code(s): K91.89 - Other postprocedural complications and disorders of digestive system; K83.8 - Other specified diseases of biliary tract Status: Acute Assessment and Plan: occlusion cholangiogram after stent was removed without any more bile leak she does not need another ercp (6) Paroxysmal A-fib: Code(s): I48.0 - Paroxysmal atrial fibrillation Status: Acute (7) Liver abscess: Code(s): K75.0 - Abscess of liver Status: Acute Subjective Date/time seen: 08/02/23 15:47 Interval history: overall better but bloated CT scan showed possible hepatic abscess Review of Systems Review of Systems: All systems reviewed & are unremarkable except as noted in HPI and below Exam Const: General: no acute distress HENMT: Face/Nose/Sinus: Normal nares present Eyes: Sclera: sclerae normal Neck: Neck: supple Resp: Effort & Inspection: normal respiratory effort Cardio: Rate: regular rate GI: Inspection: non-distended and incision (port site incisions are well healed with no erythema) GI Palp: Yes Soft to palpation and No Guarding due to palpation present (GI) Auscultation: normal bowel sounds Other: Skin: General skin exam: no rashes or lesions noted Neuro: Speech: normal speech Motor exam (neuro): 5/5 motor strength present throughout Extrem: General: normal to inspection Psych: Mental Status: mental status grossly normal Objective Data Vital Signs Vital Signs: Vital Signs - 24 hr 08/01/23 20:00 08/01/23 22:00 08/02/23 05:05 Temperature 97.5 F L 99 F Pulse Rate 94 82 Respiratory Rate 18 18 Blood Pressure 160/85 H 137/88 Pulse Oximetry 98 98 Oxygen Delivery Room Air 08/02/23 08:18 08/02/23 08:00 Temperature Pulse Rate 84 Respiratory Rate Blood Pressure Pulse Oximetry Oxygen Delivery Room Air Intake/Output Intake/Output: Intake & Output 07/30/23 07/31/23 08/01/23 08/02/23 23:59 23:59 23:59 23:59 Intake Total 3331.2 4090 3810 1495 Output Total 3732 667 7120 Balance 2331.2 3115 710 1495 Meds/Results Medications: Active Medications Generic Name Dose Route Start Last Admin Trade Name Freq PRN Reason Stop Dose Admin Acetaminophen 650 mg 07/28/23 22:39 08/02/23 08:18 Acetaminophen 325 Mg Tablet PO 650 mg Q6H PRN Administration Pain 1-5 or fever Al Hydrox/Mg Hydrox/Simethicone 30 ml 07/29/23 00:18 Mag Hydrox/Al Hydrox/Simeth 30 Ml Udc PO QID PRN Dyspepsia Apixaban 5 mg 08/01/23 21:00 08/02/23 08:18 Apixaban 5 Mg Tablet PO 5 mg Q12HR ADAM Administration Buspirone HCl 5 mg 07/29/23 09:00 Buspirone Hcl 5 Mg Tablet PO BID ADAM Dextrose 12.5 gm 07/29/23 00:21 07/30/23 07:56 Dextrose 50% 25 Gm/50 Ml Syringe IV PUSH 12.5 gm PRN PRN Administration Hypoglycemia Protocol Diphenhydramine HCl 25 mg 07/28/23 22:38 08/01/23 18:30 Diphenh
[2023-08-02] MEDS: PIPERACILLN/TAZ 3.375GM/NS50ML 3.375 GM/50 ML BAG IVPB ×2 (15:48→21:36)
[2023-08-02 16:12] LABS: Glucose Point of Care 191 mg/dl (65-105)
[2023-08-02 20:00] VITALS: PULSE 99; RESP 18; O2SAT 98
[2023-08-02 21:35] VITALS: PULSE 78
[2023-08-02] MEDS: ONDANSETRON INJ 4 MG/2 ML VIAL IV PUSH (21:35)
[2023-08-02] MEDS: traZODone HCL 50 MG TABLET PO (21:35)
[2023-08-02] MEDS: diphenhydrAMINE HCl INJ 50 MG/ML VIAL 25 MG IV PUSH (21:35)
[2023-08-02] MEDS: metroNIDAZOLE 500 MG TABLET PO (21:35)
[2023-08-02 22:00] VITALS: BP 139/53; PULSE 110; RESP 18; TEMP 36.6; O2SAT 97
[2023-08-02 22:20] LABS: Glucose Point of Care 207 mg/dl (65-105)
[2023-08-03] VITALS (7 sets, daily range): BP systolic 126–153; BP diastolic 79–90; PULSE 70–104; RESP 16–18; TEMP 36.2–36.6; O2SAT 99
[2023-08-03] MEDS: ONDANSETRON INJ 4 MG/2 ML VIAL IV PUSH ×2 (02:05→10:21)
[2023-08-03] MEDS: PIPERACILLN/TAZ 3.375GM/NS50ML 3.375 GM/50 ML BAG IVPB (02:06)
[2023-08-03] MEDS: metroNIDAZOLE 500 MG TABLET PO ×3 (05:52→20:21)
[2023-08-03] MEDS: CENTRAL LINE FLUSH 10 ML IV PUSH ×3 (05:53→20:32)
[2023-08-03] MEDS: LACTATED RINGERS 1,000 ML 100 ML IV CONT ×2 (05:54→20:20)
[2023-08-03 06:15] LABS: Basophils Absolute Auto 0.1 K/mm3 (0.0-0.1); Basophils Percent Auto 0.8 % (0.2-1.2); Eosinophils Absolute Auto 0.7 K/mm3 (0-0.3); Eosinophils Percent Auto 5.8 % (0-4.4); Hematocrit 27.7 % (37.0-47.0); Hemoglobin 8.3 g/dL (12.0-15.0); Immature Granulocyte Absolute 0.22 K/mm3 (0.00-0.031); Lymphocytes Absolute Auto 2.85 K/mm3 (0.9-3.2); Lymphocytes Percent Auto 25.4 % (18.3-44.2); Mean Corpuscular Hemoglobin 25.6 pg (26-34); Mean Corpuscular Volume 85.5 fl (80-100); Mean Platelet Volume 10.3 fl (7.4-10.4); Monocytes Absolute Auto 1.2 K/mm3 (0.1-0.6); Monocytes Percent Auto 10.6 % (2.6-8.5); Neutrophils Absolute Auto 6.2 K/mm3 (1.3-6.7); Neutrophils Percent Auto 55.4 % (45.5-73.1); Nucleated Red Blood Cells Perc 0.3 % (0.0-0.2); Platelet Count Result 340 k/mm3 (150-375); Red Blood Count 3.24 M/mm3 (4.2-5.4); Red Cell Distribution Width 15.8 % (11.5-14.5); White Blood Count 11.2 K/mm3 (4.5-10.0)
[2023-08-03 06:26] LABS: Alanine Aminotransferase 11 U/L (6-35); Albumin Level 2.6 g/dL (3.5-5.1); Alkaline Phosphatase 97 U/L (38-126); Anion Gap 4 mmol/L (4-12); Aspartate Amino Transferase 18 U/L (14-36); Bilirubin,Total 0.4 mg/dL (0.2-1.3); Blood Urea Nitrogen 7 mg/dL (7-17); Calcium 7.7 mg/dL (8.4-10.2); Carbon Dioxide 28 mmol/L (22-30); Chloride 108 mmol/L (98-107); Estimated CRCL calculation 66 ml/min; Estimated Glomerular Filt Rate > 60; Glucose 165 mg/dL (65-110); Potassium 3.5 mmol/L (3.4-5.0); Sodium 140 mmol/L (137-145)
[2023-08-03 07:42] LABS: Glucose Point of Care 160 mg/dl (65-105)
--- NOTE | 2023-08-03 08:58 | PM.IMPN ---
Progress Note: A&P Assessment and Plan (1) Septic shock: Code(s): A41.9 - Sepsis, unspecified organism; R65.21 - Severe sepsis with septic shock Status: Acute Assessment and Plan: Septic shock likely related to cholangitis, 07/27: Patient presented with nausea, vomiting, fevers, chills, was found to be hypotensive in the ER despite IV fluids per sepsis protocol. PICC line placed In the ER and patient was started on norepinephrine, no longer requiring norepinephrine. BP remains stable. - Lactic acid within normal - Blood cultures drawn on 07/27: Group B strep and klebsiella pneumoniae - Blood cultures drawn on 07/30: NGTD -Antibiotics: vancomycin and Zosyn (07/27-07/30), cultures sensitive to Rocephin, started on 07/30 - WBC remain stable likely an inflammatory component on top of infection, vital signs remain stable (2) Cholangitis: Code(s): K83.09 - Other cholangitis Status: Acute Assessment and Plan: 07/03/2023: recent laparoscopic cholecystectomy 07/07: ERCP o for postop bile leak with stent placement 07/27: Patient presented with pneumobilia on CT scan of the abdomen and pelvis along with fluid collection to the gallbladder fossa -CT abdomen and pelvis Impression: -New small amount of air peripherally in the upper right hepatic lobe, unclear whether this is pneumobilia versus parenchymal air. There is also suggestion of subtle ill-defined parenchymal hypodensity surrounding the air in this region. Infective cholangitis/hepatitis is a consideration in this region. -Decreasing fluid collection to gallbladder fossa, now measuring 1.6 cm in diameter. -Common bile duct and main pancreatic stents in place. 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 GI has evaluated the patient,s/p ERCP with stent removal on 07/30/2023. No bile leak noted. -surgery also following the patient, no surgical intervention required at this time -continue antibiotics as above 08/01: Patient endorsing worsening abdominal pain with bloating on exam. WBC stable. Afebrile. Vitals WNL. - CT abdomen and pelvis Impressions: - 2 persistent areas of focal, parenchymal air-fluid collections towards the dome of the liver, similar to prior exam. Focal hepatic abscesses are suspected, versus possibly other postprocedural or iatrogenic change. - Spoke with radiologist who states that the abscess is too small to drain. Discussed this with surgery who states transfer is not required at this time. Patient will likely require a longer course of IV antibiotics. Will discuss this with ID pharmacy in the am. 08/02: Patient started on IV levaquin and flagyl PO. WBC remains elevated but stable, likely an inflammatory component. Afebrile. LFTs WNL. 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 Code(s): E11.9 - Type 2 diabetes mellitus without complications Status: Acute Assessment and Plan: - hypoglycemia protocol - POC blood glucose ACHS - home medication - tresibar 26 units daily, novolog 5 units PRN, metformin 500 mg daily, linagliptin 5 mg daily, and jardiance 25 mg daily - correct regimen ordered - low dose TIDWM and HS - A1C 07/06/23: 6.1 (4) A-fib: Code(s): I48.91 - Unspecified atrial fibrillation Status: Acute Assessment and Plan: Patient on Eliquis and metoprolol at home for AFib -07/28 started on heparin infusion, holding Eliquis for ERCP -07/29: Holding heparin infusion for ERCP -07/31: metoprolol and eliquis resumed Time Spent With Patient Time with patient: 25 - 35 minutes Subjective Date/time seen: 08/03/23 08:58 Interval history: Patient continues to endorse abdominal pain specifically to the RUQ with associated bloating. She is tolerating diet wel
[2023-08-03] MEDS: METOPROLOL TARTRATE 25 MG TABLET PO ×2 (10:30→20:21)
[2023-08-03] MEDS: APIXABAN 5 MG TABLET PO ×2 (10:31→20:20)
[2023-08-03] MEDS: SACCHAROMYCES BOULARDII 250 MG CAPSULE PO (10:31)
[2023-08-03] MEDS: GABAPENTIN 300 MG CAPSULE PO ×2 (10:31→18:05)
[2023-08-03] MEDS: levoFLOXacin 750 MG/D5W 150 ML 750 MG/150 ML BAG 100 MG IVPB (10:33)
[2023-08-03] MEDS: diphenhydrAMINE HCl INJ 50 MG/ML VIAL 25 MG IV PUSH ×2 (11:29→20:20)
--- NOTE | 2023-08-03 12:07 | WPDGIPROGNO ---
Progress Note: A&P Assessment and Plan (1) Bacteremia: Code(s): R78.81 - Bacteremia Status: Acute Assessment and Plan: on iv abx repeat CT scan possible fluid collection in liver but too small to drain per radiology, primary discussed with surgery and continue with iv abx since she is responding clinically, wbc improved, normal liver enzymes probably will need ID input for treatment duration stents also removed and she does not have any more bile leak (2) Sepsis: Code(s): A41.9 - Sepsis, unspecified organism Status: Acute Assessment and Plan: on treatment, improved but CT scan showed possible liver abscess but small to drain on iv abx clinically better (3) Cholangitis: Code(s): K83.09 - Other cholangitis Status: Acute Assessment and Plan: stents removed (4) Anemia of chronic disease: Code(s): D63.8 - Anemia in other chronic diseases classified elsewhere Status: Acute Assessment and Plan: monitor for signs of bleeding (5) Bile leak, postoperative: Code(s): K91.89 - Other postprocedural complications and disorders of digestive system; K83.8 - Other specified diseases of biliary tract Status: Acute Assessment and Plan: occlusion cholangiogram after stent was removed without any more bile leak she does not need another ercp (6) Paroxysmal A-fib: Code(s): I48.0 - Paroxysmal atrial fibrillation Status: Acute (7) Liver abscess: Code(s): K75.0 - Abscess of liver Status: Acute Subjective Date/time seen: 08/03/23 12:07 Interval history: no major changes, she is eating but still feeling bloated Review of Systems Review of Systems: All systems reviewed & are unremarkable except as noted in HPI and below Exam Const: General: no acute distress HENMT: Face/Nose/Sinus: Normal nares present Eyes: Sclera: sclerae normal Neck: Neck: supple Resp: Effort & Inspection: normal respiratory effort Cardio: Rate: regular rate GI: Inspection: non-distended and incision (port site incisions are well healed with no erythema) GI Palp: Yes Soft to palpation and No Guarding due to palpation present (GI) Auscultation: normal bowel sounds Other: Skin: General skin exam: no rashes or lesions noted Neuro: Speech: normal speech Motor exam (neuro): 5/5 motor strength present throughout Extrem: General: normal to inspection Psych: Mental Status: mental status grossly normal Objective Data Vital Signs Vital Signs: Vital Signs - 24 hr 08/02/23 14:00 08/02/23 20:00 08/02/23 21:35 Temperature 97.8 F Pulse Rate 99 99 78 Respiratory Rate 18 18 Blood Pressure 152/79 H Pulse Oximetry 98 98 Oxygen Delivery Room Air 08/02/23 22:00 08/03/23 06:00 08/03/23 10:30 Temperature 97.8 F 97.8 F Pulse Rate 110 H 95 92 Respiratory Rate 18 16 Blood Pressure 139/53 L 133/80 Pulse Oximetry 97 99 Oxygen Delivery Intake/Output Intake/Output: Intake & Output 07/31/23 08/01/23 08/02/23 08/03/23 23:59 23:59 23:59 23:59 Intake Total 4090 3810 3075 833.3 Output Total 975 3100 Balance 3115 710 3075 833.3 Meds/Results Medications: Active Medications Generic Name Dose Route Start Last Admin Trade Name Freq PRN Reason Stop Dose Admin Acetaminophen 650 mg 07/28/23 22:39 08/02/23 08:18 Acetaminophen 325 Mg Tablet PO 650 mg Q6H PRN Administration Pain 1-5 or fever Al Hydrox/Mg Hydrox/Simethicone 30 ml 07/29/23 00:18 Mag Hydrox/Al Hydrox/Simeth 30 Ml Udc PO QID PRN Dyspepsia Apixaban 5 mg 08/01/23 21:00 08/03/23 10:31 Apixaban 5 Mg Tablet PO 5 mg Q12HR ADAM Administration Buspirone HCl 5 mg 07/29/23 09:00 Buspirone Hcl 5 Mg Tablet PO BID ADAM Dextrose 12.5 gm 07/29/23 00:21 07/30/23 07:56 Dextrose 50% 25 Gm/50 Ml Syringe IV PUSH 12.5 gm PRN PRN Administration Hypoglycemia Protocol Diphenhydrami
[2023-08-03 12:22] LABS: Glucose Point of Care 200 mg/dl (65-105)
[2023-08-03] MEDS: ACETAMINOPHEN 325 MG TABLET 650 MG PO (12:29)
[2023-08-03] MEDS: HYDROcodone/acetaminophen (*CRX) 5-325 MG TABLET 1 TAB PO ×2 (14:13→20:21)
--- NOTE | 2023-08-03 14:53 | PM.PNGS ---
Progress Note: A&P Assessment and Plan (1) Bacteremia: Code(s): R78.81 - Bacteremia Status: Acute Assessment and Plan: Continue antibiotics, monitor WBC Hepatic abscesses should resolve with current treatment, will consider f/u imaging if infectious concerns persist. (2) Cholangitis: Code(s): K83.09 - Other cholangitis Status: Acute (3) Liver abscess: Code(s): K75.0 - Abscess of liver Status: Acute Subjective Subjective Date/Time Seen: 08/03/23 14:53 Interval history: Patient feeling a little bloated and having some abdominal pain. No fevers. Tolerating diet and bowels moving. Exam GI: Inspection: obesity GI Palp: Yes Soft to palpation, Yes Tenderness to palpation present (GI) (RUQ) and No Guarding due to palpation present (GI) Auscultation: normal bowel sounds Objective Data Vital Signs Vital Signs: Vital Signs - 24 hr 08/02/23 20:00 08/02/23 21:35 08/02/23 22:00 Temperature 36.6 C Pulse Rate 99 78 110 H Respiratory Rate 18 18 Blood Pressure 139/53 L Pulse Oximetry 98 97 Oxygen Delivery Room Air 08/03/23 06:00 08/03/23 10:30 08/03/23 08:00 Temperature 36.6 C Pulse Rate 95 92 92 Respiratory Rate 16 Blood Pressure 133/80 Pulse Oximetry 99 99 Oxygen Delivery Room Air Intake/Output Intake/Output: Intake & Output 07/31/23 08/01/23 08/02/23 08/03/23 23:59 23:59 23:59 23:59 Intake Total 4090 3810 3075 983.3 Output Total 975 3100 Balance 3115 710 3075 983.3 Meds/Results Medications: Active Medications Generic Name Dose Route Start Last Admin Trade Name Freq PRN Reason Stop Dose Admin Acetaminophen 650 mg 07/28/23 22:39 08/03/23 12:29 Acetaminophen 325 Mg Tablet PO 650 mg Q6H PRN Administration Pain 1-5 or fever Hydrocodone Bitart/Acetaminophen 1 tab 08/03/23 12:54 08/03/23 14:13 Hydrocodone/Acetaminophen (*Crx) 5-325 Mg Tablet PO 1 tab Q4H PRN Administration Pain Rated 4-6 Al Hydrox/Mg Hydrox/Simethicone 30 ml 07/29/23 00:18 Mag Hydrox/Al Hydrox/Simeth 30 Ml Udc PO QID PRN Dyspepsia Apixaban 5 mg 08/01/23 21:00 08/03/23 10:31 Apixaban 5 Mg Tablet PO 5 mg Q12HR ADAM Administration Buspirone HCl 5 mg 07/29/23 09:00 Buspirone Hcl 5 Mg Tablet PO BID ADAM Dextrose 12.5 gm 07/29/23 00:21 07/30/23 07:56 Dextrose 50% 25 Gm/50 Ml Syringe IV PUSH 12.5 gm PRN PRN Administration Hypoglycemia Protocol Diphenhydramine HCl 25 mg 07/28/23 22:38 08/03/23 11:29 Diphenhydramine Hcl Inj 50 Mg/Ml Vial IV PUSH 25 mg Q3H PRN Administration Itching Empagliflozin 25 mg 07/29/23 09:00 Empagliflozin 25 Mg Tablet PO DAILY ADAM Escitalopram Oxalate 20 mg 07/29/23 21:00 Escitalopram Oxalate 10 Mg Tablet PO HS ADAM Gabapentin 300 mg 07/29/23 09:00 08/03/23 10:31 Gabapentin 300 Mg Capsule PO 300 mg BID ADAM Administration Glucagon 1 mg 07/29/23 00:21 Glucagon For Inj 1 Mg Vial IM PRN PRN Hypoglycemia Protocol Glucose 15 gm 07/29/23 00:21 Glucose Oral Gel 15 Gm Of Glucse In 37.5 Gm Tube PO PRN PRN Hypoglycemia Protocol Hydromorphone HCl 0.5 mg 07/28/23 22:37 07/30/23 20:55 Hydromorphone Hcl Inj (*Crx) 1 Mg/Ml Syr IV PUSH 0.5 mg Q3H PRN Administration Pain rated 6-10 Lactated Ringer's 1,000 mls @ 100 mls/hr 07/28/23 20:30 08/03/23 05:54 Lr - Lactated Ringers Iv IV CONT 100 mls/hr .Q10H ADAM Administration Dextrose 1,000 mls @ 100 mls/hr 07/29/23 00:21 Dextrose 5% 1,000 Ml IVPB PRN PRN Hypoglycemia Protocol Levofloxacin/Dextrose 750 mg in 150 mls @ 100 mls/hr 08/03/23 09:00 08/03/23 12:03 Levaquin 750 Mg/D5w 150 Ml IVPB Infused Q24H ADAM Infusion Insulin Aspart 2 - 5 units 06/10/24 08:00 08/03/23 12:18 Insulin Aspart (*Bkc) 100 Units/Ml SUB-Q Not Given TIDWM [facility] Protocol Insulin Glarg
[2023-08-03 17:07] LABS: Glucose Point of Care 143 mg/dl (65-105)
[2023-08-03] MEDS: traZODone HCL 50 MG TABLET PO (20:21)
[2023-08-03 20:54] LABS: Glucose Point of Care 162 mg/dl (65-105)
[2023-08-04] VITALS (7 sets, daily range): BP systolic 135–143; BP diastolic 69–77; PULSE 72–115; RESP 16–20; TEMP 36.2–36.4; O2SAT 95–99
[2023-08-04] MEDS: HYDROcodone/acetaminophen (*CRX) 5-325 MG TABLET 1 TAB PO ×2 (00:24→20:13)
[2023-08-04] MEDS: LACTATED RINGERS 1,000 ML 100 ML IV CONT (04:20)
[2023-08-04] MEDS: CENTRAL LINE FLUSH 10 ML IV PUSH (05:57)
[2023-08-04] MEDS: metroNIDAZOLE 500 MG TABLET PO ×3 (05:57→20:13)
[2023-08-04 08:09] LABS: Glucose Point of Care 154 mg/dl (65-105)
--- NOTE | 2023-08-04 09:13 | PM.IMPN ---
Progress Note: A&P Assessment and Plan (1) Septic shock: Code(s): A41.9 - Sepsis, unspecified organism; R65.21 - Severe sepsis with septic shock Status: Acute Assessment and Plan: Septic shock likely related to cholangitis, 07/27: Patient presented with nausea, vomiting, fevers, chills, was found to be hypotensive in the ER despite IV fluids per sepsis protocol. PICC line placed In the ER and patient was started on norepinephrine, no longer requiring norepinephrine. BP remains stable. - Lactic acid within normal - Blood cultures drawn on 07/27: Group B strep and klebsiella pneumoniae - Blood cultures drawn on 07/30: NGTD -Antibiotics: vancomycin and Zosyn (07/27-07/30), cultures sensitive to Rocephin, started on 07/30 - WBC remain stable likely an inflammatory component on top of infection, vital signs remain stable (2) Cholangitis: Code(s): K83.09 - Other cholangitis Status: Acute Assessment and Plan: 07/03/2023: recent laparoscopic cholecystectomy 07/07: ERCP o for postop bile leak with stent placement 07/27: Patient presented with pneumobilia on CT scan of the abdomen and pelvis along with fluid collection to the gallbladder fossa -CT abdomen and pelvis Impression: -New small amount of air peripherally in the upper right hepatic lobe, unclear whether this is pneumobilia versus parenchymal air. There is also suggestion of subtle ill-defined parenchymal hypodensity surrounding the air in this region. Infective cholangitis/hepatitis is a consideration in this region. -Decreasing fluid collection to gallbladder fossa, now measuring 1.6 cm in diameter. -Common bile duct and main pancreatic stents in place. 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 GI has evaluated the patient,s/p ERCP with stent removal on 07/30/2023. No bile leak noted. -surgery also following the patient, no surgical intervention required at this time -continue antibiotics as above 08/01: Patient endorsing worsening abdominal pain with bloating on exam. WBC stable. Afebrile. Vitals WNL. - CT abdomen and pelvis Impressions: - 2 persistent areas of focal, parenchymal air-fluid collections towards the dome of the liver, similar to prior exam. Focal hepatic abscesses are suspected, versus possibly other postprocedural or iatrogenic change. - Spoke with radiologist who states that the abscess is too small to drain. Discussed this with surgery who states transfer is not required at this time. Patient will likely require a longer course of IV antibiotics. Will discuss this with ID pharmacy in the am. 08/02: Patient started on IV levaquin and flagyl PO. WBC remains elevated but stable, likely an inflammatory component. Afebrile. LFTs WNL. 08/03: Patient transitioned to PO levaquin. She remains on PO flagyl. Per GI patient will likely need a repeat CT scan in 3-4 weeks to reevaluate abscess. 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 Code(s): E11.9 - Type 2 diabetes mellitus without complications Status: Acute Assessment and Plan: - hypoglycemia protocol - POC blood glucose ACHS - home medication - tresibar 26 units daily, novolog 5 units PRN, metformin 500 mg daily, linagliptin 5 mg daily, and jardiance 25 mg daily - correct regimen ordered - low dose TIDWM and HS - A1C 07/06/23: 6.1 (4) A-fib: Code(s): I48.91 - Unspecified atrial fibrillation Status: Acute Assessment and Plan: Patient on Eliquis and metoprolol at home for AFib -07/28 started on heparin infusion, holding Eliquis for ERCP -07/29: Holding heparin infusion for ERCP -07/31: metoprolol and eliquis resumed Subjective Date/time seen: 08/04/23 09:13 Interval history: Patient is pleasant lyi
[2023-08-04] MEDS: METOPROLOL TARTRATE 25 MG TABLET PO ×2 (09:52→20:14)
[2023-08-04] MEDS: SACCHAROMYCES BOULARDII 250 MG CAPSULE PO (09:52)
[2023-08-04] MEDS: GABAPENTIN 300 MG CAPSULE PO ×2 (09:52→17:03)
[2023-08-04] MEDS: APIXABAN 5 MG TABLET PO ×2 (09:52→20:14)
[2023-08-04] MEDS: levoFLOXacin 750 MG/D5W 150 ML 750 MG/150 ML BAG 100 MG IVPB (09:52)
[2023-08-04 10:02] LABS: Basophils Absolute Auto 0.1 K/mm3 (0.0-0.1); Basophils Percent Auto 0.5 % (0.2-1.2); Eosinophils Percent Auto 7.2 % (0-4.4); Hematocrit 27.7 % (37.0-47.0); Hemoglobin 8.5 g/dL (12.0-15.0); Immature Granulocyte Absolute 0.16 K/mm3 (0.00-0.031); Immature Granulocyte Percent A 1.2 % (0-0.5); Lymphocytes Absolute Auto 2.73 K/mm3 (0.9-3.2); Lymphocytes Percent Auto 20.6 % (18.3-44.2); Mean Corpuscular HGB Conc 30.7 g/dl (32-36); Mean Corpuscular Hemoglobin 26.2 pg (26-34); Mean Corpuscular Volume 85.2 fl (80-100); Monocytes Percent Auto 7.8 % (2.6-8.5); Neutrophils Absolute Auto 8.3 K/mm3 (1.3-6.7); Neutrophils Percent Auto 62.7 % (45.5-73.1); Platelet Count Result 409 k/mm3 (150-375); Red Blood Count 3.25 M/mm3 (4.2-5.4); Red Cell Distribution Width 16.2 % (11.5-14.5); White Blood Count 13.3 K/mm3 (4.5-10.0)
[2023-08-04 10:12] LABS: Alanine Aminotransferase 11 U/L (6-35); Albumin Level 2.8 g/dL (3.5-5.1); Alkaline Phosphatase 100 U/L (38-126); Anion Gap 7 mmol/L (4-12); Aspartate Amino Transferase 15 U/L (14-36); Bilirubin,Total 0.4 mg/dL (0.2-1.3); Blood Urea Nitrogen 5 mg/dL (7-17); Calcium 8.4 mg/dL (8.4-10.2); Carbon Dioxide 27 mmol/L (22-30); Chloride 107 mmol/L (98-107); Estimated CRCL calculation 77 ml/min; Estimated Glomerular Filt Rate > 60; Glucose 136 mg/dL (65-110); Potassium 3.9 mmol/L (3.4-5.0); Sodium 141 mmol/L (137-145)
[2023-08-04 11:36] LABS: Glucose Point of Care 152 mg/dl (65-105)
--- NOTE | 2023-08-04 12:15 | WPDGIPROGNO ---
Progress Note: A&P Assessment and Plan (1) Bacteremia: Code(s): R78.81 - Bacteremia Status: Acute Assessment and Plan: on iv abx repeat CT scan possible fluid collection in liver but too small to drain per radiology, primary discussed with surgery and continue with iv abx since she is responding clinically, normal liver enzymes- probably will need repeat CT scan in 3-4 weeks also need ID input for treatment duration stents already removed and she does not have any more bile leak (2) Sepsis: Code(s): A41.9 - Sepsis, unspecified organism Status: Acute Assessment and Plan: on treatment, improved but CT scan showed possible liver abscess but small to drain on iv abx clinically better (3) Cholangitis: Code(s): K83.09 - Other cholangitis Status: Acute Assessment and Plan: stents removed (4) Anemia of chronic disease: Code(s): D63.8 - Anemia in other chronic diseases classified elsewhere Status: Acute Assessment and Plan: monitor for signs of bleeding (5) Bile leak, postoperative: Code(s): K91.89 - Other postprocedural complications and disorders of digestive system; K83.8 - Other specified diseases of biliary tract Status: Acute Assessment and Plan: occlusion cholangiogram after stent was removed without any more bile leak she does not need another ercp (6) Paroxysmal A-fib: Code(s): I48.0 - Paroxysmal atrial fibrillation Status: Acute (7) Liver abscess: Code(s): K75.0 - Abscess of liver Status: Acute Subjective Date/time seen: 08/04/23 12:15 Interval history: no major changes, still some bloating Review of Systems Review of Systems: All systems reviewed & are unremarkable except as noted in HPI and below Exam Const: General: no acute distress HENMT: Face/Nose/Sinus: Normal nares present Eyes: Sclera: sclerae normal Neck: Neck: supple Resp: Effort & Inspection: normal respiratory effort Cardio: Rate: regular rate GI: Inspection: non-distended and incision (port site incisions are well healed with no erythema) GI Palp: Yes Soft to palpation, Yes Tenderness to palpation present (GI) (mild ttp in ruq, no rebound) and No Guarding due to palpation present (GI) Auscultation: normal bowel sounds Other: Skin: General skin exam: no rashes or lesions noted Neuro: Speech: normal speech Motor exam (neuro): 5/5 motor strength present throughout Extrem: General: normal to inspection Psych: Mental Status: mental status grossly normal Objective Data Vital Signs Vital Signs: Vital Signs - 24 hr 08/03/23 14:00 08/03/23 20:21 08/03/23 20:00 Temperature 97.5 F L Pulse Rate 90 70 70 Respiratory Rate 16 16 Blood Pressure 126/79 Pulse Oximetry 99 99 Oxygen Delivery Room Air 08/03/23 21:31 08/04/23 06:00 08/04/23 09:52 Temperature 97.2 F L 97.2 F L Pulse Rate 104 H 115 H 74 Respiratory Rate 18 20 Blood Pressure 153/90 H 136/77 Pulse Oximetry 99 95 Oxygen Delivery Intake/Output Intake/Output: Intake & Output 08/01/23 08/02/23 08/03/23 08/04/23 23:59 23:59 23:59 23:59 Intake Total 3810 3075 2183.3 1230 Output Total 3100 400 900 Balance 710 3075 1783.3 330 Meds/Results Medications: Active Medications Generic Name Dose Route Start Last Admin Trade Name Freq PRN Reason Stop Dose Admin Acetaminophen 650 mg 07/28/23 22:39 08/03/23 12:29 Acetaminophen 325 Mg Tablet PO 650 mg Q6H PRN Administration Pain 1-5 or fever Hydrocodone Bitart/Acetaminophen 1 tab 08/03/23 12:54 08/04/23 00:24 Hydrocodone/Acetaminophen (*Crx) 5-325 Mg Tablet PO 1 tab Q4H PRN Administration Pain Rated 4-6 Al Hydrox/Mg Hydrox/Simethicone 30 ml 07/29/23 00:18 Mag Hydrox/Al Hydrox/Simeth 30 Ml Udc PO QID PRN Dyspepsia Apixaban 5 mg 08/01/23 21:00 08/04/23 09:52 Apixaban 5 Mg Tablet PO 5 mg Q12HR ADAM Adm
--- NOTE | 2023-08-04 12:23 | PM.PNGS ---
Progress Note: A&P Assessment and Plan (1) Bacteremia: Code(s): R78.81 - Bacteremia Status: Acute Assessment and Plan: WBC slightly up today. Will transition to oral antibiotics and remove Central line. Hepatic abscesses should resolve with current treatment, will consider f/u imaging if infectious concerns persist. (2) Cholangitis: Code(s): K83.09 - Other cholangitis Status: Acute (3) Liver abscess: Code(s): K75.0 - Abscess of liver Status: Acute Subjective Subjective Date/Time Seen: 08/04/23 12:23 Interval history: Patient still feeling bloated and says she's in pain all over. Tolerating diet. No fevers. Exam GI: Inspection: obesity GI Palp: Yes Soft to palpation, Yes Tenderness to palpation present (GI) (RUQ) and No Guarding due to palpation present (GI) Auscultation: normal bowel sounds Objective Data Vital Signs Vital Signs: Vital Signs - 24 hr 08/03/23 14:00 08/03/23 20:21 08/03/23 20:00 Temperature 36.4 C L Pulse Rate 90 70 70 Respiratory Rate 16 16 Blood Pressure 126/79 Pulse Oximetry 99 99 Oxygen Delivery Room Air 08/03/23 21:31 08/04/23 06:00 08/04/23 09:52 Temperature 36.2 C L 36.2 C L Pulse Rate 104 H 115 H 74 Respiratory Rate 18 20 Blood Pressure 153/90 H 136/77 Pulse Oximetry 99 95 Oxygen Delivery Intake/Output Intake/Output: Intake & Output 08/01/23 08/02/23 08/03/23 08/04/23 23:59 23:59 23:59 23:59 Intake Total 3810 3075 2183.3 1470 Output Total 3100 400 900 Balance 710 3075 1783.3 570 Meds/Results Medications: Active Medications Generic Name Dose Route Start Last Admin Trade Name Freq PRN Reason Stop Dose Admin Acetaminophen 650 mg 07/28/23 22:39 08/03/23 12:29 Acetaminophen 325 Mg Tablet PO 650 mg Q6H PRN Administration Pain 1-5 or fever Hydrocodone Bitart/Acetaminophen 1 tab 08/03/23 12:54 08/04/23 00:24 Hydrocodone/Acetaminophen (*Crx) 5-325 Mg Tablet PO 1 tab Q4H PRN Administration Pain Rated 4-6 Al Hydrox/Mg Hydrox/Simethicone 30 ml 07/29/23 00:18 Mag Hydrox/Al Hydrox/Simeth 30 Ml Udc PO QID PRN Dyspepsia Apixaban 5 mg 08/01/23 21:00 08/04/23 09:52 Apixaban 5 Mg Tablet PO 5 mg Q12HR ADAM Administration Buspirone HCl 5 mg 07/29/23 09:00 Buspirone Hcl 5 Mg Tablet PO BID ADAM Dextrose 12.5 gm 07/29/23 00:21 07/30/23 07:56 Dextrose 50% 25 Gm/50 Ml Syringe IV PUSH 12.5 gm PRN PRN Administration Hypoglycemia Protocol Diphenhydramine HCl 25 mg 07/28/23 22:38 08/03/23 20:20 Diphenhydramine Hcl Inj 50 Mg/Ml Vial IV PUSH 25 mg Q3H PRN Administration Itching Empagliflozin 25 mg 07/29/23 09:00 Empagliflozin 25 Mg Tablet PO DAILY ADAM Escitalopram Oxalate 20 mg 07/29/23 21:00 Escitalopram Oxalate 10 Mg Tablet PO HS ADAM Gabapentin 300 mg 07/29/23 09:00 08/04/23 09:52 Gabapentin 300 Mg Capsule PO 300 mg BID ADAM Administration Glucagon 1 mg 07/29/23 00:21 Glucagon For Inj 1 Mg Vial IM PRN PRN Hypoglycemia Protocol Glucose 15 gm 07/29/23 00:21 Glucose Oral Gel 15 Gm Of Glucse In 37.5 Gm Tube PO PRN PRN Hypoglycemia Protocol Hydromorphone HCl 0.5 mg 07/28/23 22:37 07/30/23 20:55 Hydromorphone Hcl Inj (*Crx) 1 Mg/Ml Syr IV PUSH 0.5 mg Q3H PRN Administration Pain rated 6-10 Dextrose 1,000 mls @ 100 mls/hr 07/29/23 00:21 Dextrose 5% 1,000 Ml IVPB PRN PRN Hypoglycemia Protocol Levofloxacin/Dextrose 750 mg in 150 mls @ 100 mls/hr 08/03/23 09:00 08/04/23 11:22 Levaquin 750 Mg/D5w 150 Ml IVPB Infused Q24H ADAM Infusion Insulin Aspart 2 - 5 units 07/29/23 08:00 08/04/23 11:41 Insulin Aspart (*Bkc) 100 Units/Ml SUB-Q Not Given TIDWM ADAM Protocol Insulin Glargine 26 units 07/29/23 18:00 07/29/23 15:24 Insulin Glargine (*Bk) 100 Units/Ml SUB-Q Not Given
[2023-08-04] MEDS: ACETAMINOPHEN 325 MG TABLET 650 MG PO (12:42)
[2023-08-04] MEDS: diphenhydrAMINE HCl CAP 25 MG CAPSULE PO ×2 (12:42→20:13)
[2023-08-04] MEDS: NEOMYCIN/POLYMYXIN/BACITRACIN OINTMENT PACKET 1 PACKET (12:45)
[2023-08-04 16:30] LABS: Glucose Point of Care 164 mg/dl (65-105)
[2023-08-04] MEDS: MAGNESIUM HYDROXIDE SUSP 30 ML UDC PO (17:03)
[2023-08-04] MEDS: rOPINIRole HCL 0.25 MG TABLET PO (20:13)
[2023-08-04] MEDS: traZODone HCL 50 MG TABLET PO (20:13)
[2023-08-04] MEDS: ONDANSETRON HCL ODT 4 MG TABLET PO (20:14)
[2023-08-04 20:46] LABS: Glucose Point of Care 156 mg/dl (65-105)
--- NOTE | 2023-08-05 | ECHO_ITS ---
Patient Info Name: Alicia Del Toro Age: 73 years : 1950 Gender: Female Ht: 65 in Wt: 172 lbs BSA: 1.91 m2 HR: 73 bpm BP: 125 / 62 mmHg Technical Quality: Fair Exam Date: 08/05/2023 2:22 PM Exam Location: Echo Lab Patient Status: Inpatient Admit Date: 07/28/2023 Staff Ordering Physician: Abbey Garrett PA-C Slitter Scorer: Mercedes Freed RDCS Attending Provider: Abbey Garrett PA-C Referring Physician: Gerry MEJIA; Exam Type: CA echo doppler color flow Study Info Indications J81.0 - Acute pulmonary edema Complete two-dimensional, color flow and Doppler transthoracic echocardiogram is performed. Summary 1. Complete two-dimensional, color flow and Doppler transthoracic echocardiogram is performed. 2. Left ventricular chamber dimension is mildly enlarged. 3. Left ventricular systolic function is normal, estimated at 55-60%. 4. Left ventricular septal wall motion is abnormal with septal motion related to bundle branch block. 5. The left ventricular diastolic function is grade III diastolic dysfunction. 6. E/e' 16 is elevated. 7. Left atrial chamber dimension is moderately enlarged. 8. There is mild aortic valve sclerosis. 9. There is mild mitral valve regurgitation. 10. There is mild tricuspid valve regurgitation. 11. Mild pulmonary hypertension, estimated pulmonary arterial systolic pressure is 42 mmHg. 12. There is trace pulmonic regurgitation. Left Ventricle E/e' 16 is elevated. Left ventricular chamber dimension is mildly enlarged. Left ventricular systolic function is normal, estimated at 55-60%. Left ventricular septal wall motion is abnormal with septal motion related to bundle branch block. The left ventricular diastolic function is grade III diastolic dysfunction. Right Ventricle Right ventricular systolic function is normal and with normal TAPSE 2.0 cm. Right ventricular chamber dimension is normal. Left Atria Left atrial chamber dimension is moderately enlarged. Right Atria Right atrial chamber dimension is normal. Aortic Valve The aortic valve is trileaflet. There is mild aortic valve sclerosis. There is no aortic valve stenosis. There is no aortic valve regurgitation. Pulmonic Valve There is trace pulmonic regurgitation. Mitral Valve There is no mitral valve stenosis. There is mild mitral valve regurgitation. Tricuspid Valve There is mild tricuspid valve regurgitation. Mild pulmonary hypertension, estimated pulmonary arterial systolic pressure is 42 mmHg. Pericardium/Pleural There is no pericardial effusion. Inferior Vena Cava Normal inferior vena cava with >50% collapse upon inspiration consistent with normal right atrial pressure, 5 mmHg. Aorta The aortic root size at the sinus of Valsalva is normal. Left Ventricular Outflow Tract Name Value Normal LVOT 2D LVOT Diameter 2.0 cm LVOT Doppler LVOT Peak Gradient 4 mmHg LVOT Mean Gradient 2 mmHg LVOT VTI 19 cm LVOT VTI/AV VTI Ratio 0.8 LVOT Stroke Volume 60 ml LVOT CO 4.1 l/min LVOT CI
[2023-08-05] MEDS: HYDROcodone/acetaminophen (*CRX) 5-325 MG TABLET 1 TAB PO ×2 (00:31→09:14)
[2023-08-05 06:00] VITALS: BP 125/62; PULSE 68; RESP 20; TEMP 36.2; O2SAT 96
[2023-08-05 06:18] LABS: Basophils Absolute Auto 0.1 K/mm3 (0.0-0.1); Basophils Percent Auto 0.6 % (0.2-1.2); Eosinophils Absolute Auto 0.8 K/mm3 (0-0.3); Eosinophils Percent Auto 8.2 % (0-4.4); Hematocrit 25.9 % (37.0-47.0); Hemoglobin 7.7 g/dL (12.0-15.0); Immature Granulocyte Absolute 0.14 K/mm3 (0.00-0.031); Immature Granulocyte Percent A 1.4 % (0-0.5); Lymphocytes Absolute Auto 2.35 K/mm3 (0.9-3.2); Mean Corpuscular HGB Conc 29.7 g/dl (32-36); Mean Corpuscular Hemoglobin 25.7 pg (26-34); Mean Corpuscular Volume 86.3 fl (80-100); Mean Platelet Volume 10.3 fl (7.4-10.4); Monocytes Absolute Auto 0.9 K/mm3 (0.1-0.6); Monocytes Percent Auto 8.7 % (2.6-8.5); Neutrophils Absolute Auto 5.9 K/mm3 (1.3-6.7); Neutrophils Percent Auto 58.1 % (45.5-73.1); Platelet Count Result 372 k/mm3 (150-375); Red Cell Distribution Width 16.6 % (11.5-14.5); White Blood Count 10.2 K/mm3 (4.5-10.0)
[2023-08-05 06:33] LABS: Alanine Aminotransferase 8 U/L (6-35); Albumin Level 2.6 g/dL (3.5-5.1); Alkaline Phosphatase 87 U/L (38-126); Anion Gap 4 mmol/L (4-12); Aspartate Amino Transferase 13 U/L (14-36); Bilirubin,Total 0.3 mg/dL (0.2-1.3); Blood Urea Nitrogen 4 mg/dL (7-17); Calcium 8.1 mg/dL (8.4-10.2); Carbon Dioxide 27 mmol/L (22-30); Chloride 107 mmol/L (98-107); Estimated CRCL calculation 76 ml/min; Estimated Glomerular Filt Rate > 60; Glucose 168 mg/dL (65-110); Potassium 3.4 mmol/L (3.4-5.0); Sodium 138 mmol/L (137-145)
[2023-08-05 06:53] LABS: Anisocytosis 2+; Hypochromasia 1+; Platelet Estimate Adequate (Adequate); Schistocytes None Seen
[2023-08-05 07:48] LABS: Glucose Point of Care 162 mg/dl (65-105)
[2023-08-05] MEDS: diphenhydrAMINE HCl CAP 25 MG CAPSULE PO (09:14)
[2023-08-05] MEDS: GABAPENTIN 300 MG CAPSULE PO ×2 (09:15→16:16)
[2023-08-05] MEDS: levoFLOXacin 750 MG TABLET PO (09:15)
[2023-08-05] MEDS: metroNIDAZOLE 500 MG TABLET PO ×3 (09:15→21:36)
[2023-08-05] MEDS: APIXABAN 5 MG TABLET PO ×2 (09:15→21:36)
[2023-08-05] MEDS: SACCHAROMYCES BOULARDII 250 MG CAPSULE PO (09:15)
[2023-08-05] MEDS: METOPROLOL TARTRATE 25 MG TABLET PO ×2 (09:15→21:36)
[2023-08-05 11:35] LABS: Glucose Point of Care 169 mg/dl (65-105)
[2023-08-05 12:47] LABS: Hematocrit 25.3 % (37.0-47.0); Hemoglobin 7.8 g/dL (12.0-15.0)
--- NOTE | 2023-08-05 13:16 | PM.PNGS ---
Progress Note: A&P Assessment and Plan (1) Bacteremia: Code(s): R78.81 - Bacteremia Status: Acute Assessment and Plan: Blood cx 07/27 +Group B strep and Klebsiella pneumoniae. Repeat blood cx 07/30 NGTD. WBC back down to 10k today. Continue antibiotics, currently on oral levofloxacin and metronidazole. (2) Cholangitis: Code(s): K83.09 - Other cholangitis Status: Acute Assessment and Plan: S/p ERCP with biliary and pancreatic stent removal. (3) Liver abscess: Code(s): K75.0 - Abscess of liver Status: Acute Assessment and Plan: Repeat CT scan over the weekend showed 2 persistent liver abscesses that are not amenable to drainage. Discussed with Hospitalist and recommended consulting with Infectious disease regarding their recommendations for IV antibiotic treatment and duration. Since these abscesses were not drained, longer-term IV antibiotics may be needed. Patient also appears to have worsening ascites and lower extremity edema over the weekend. Abdominal US and BNP pending. Plan I have discussed the patient's case and plan of care with Dr. Keller. Subjective Subjective Date/Time Seen: 08/05/23 13:16 Patient reports: no new complaints and afebrile (since 07/29) Interval history: Patient seen today on the medical floor. Chart reviewed since last seen. Her main complaint today is discomfort of her abdominal distention. She feels like she has had increasing abdominal distention over the weekend. She reports it is making her bilateral ribs sore and she has diffuse mild tenderness. She reports also having swelling in her lower extremities. Exam Const: General: comfortable and no acute distress Orientation/consciousness: patient oriented x3 GI: Inspection: distended and incision (port site incisions well healed) GI Palp: Yes Soft to palpation, Yes Tenderness to palpation present (GI) (diffusely tender, no focal tenderness), No Guarding due to palpation present (GI) and No Rebound tenderness present Auscultation: normal bowel sounds Objective Data Vital Signs Vital Signs: Vital Signs - 24 hr 08/04/23 14:00 08/04/23 20:14 08/04/23 20:57 Temperature 97.5 F L 97.1 F L Pulse Rate 96 72 80 Respiratory Rate 16 20 Blood Pressure 135/77 143/69 H Pulse Oximetry 98 99 Oxygen Delivery 08/04/23 20:00 08/05/23 06:00 08/05/23 08:00 Temperature 97.1 F L Pulse Rate 80 68 Respiratory Rate 20 20 Blood Pressure 125/62 Pulse Oximetry 99 96 Oxygen Delivery Room Air Room Air Intake/Output Intake/Output: Intake & Output 08/02/23 08/03/23 08/04/23 08/05/23 23:59 23:59 23:59 23:59 Intake Total 3075 2183.3 1590 477 Output Total 400 1350 300 Balance 3075 1783.3 240 177 Meds/Results Medications: Active Medications Generic Name Dose Route Start Last Admin Trade Name Freq PRN Reason Stop Dose Admin Acetaminophen 650 mg 07/28/23 22:39 08/04/23 12:42 Acetaminophen 325 Mg Tablet PO 650 mg Q6H PRN Administration Pain 1-5 or fever Hydrocodone Bitart/Acetaminophen 1 tab 08/03/23 12:54 08/05/23 09:14 Hydrocodone/Acetaminophen (*Crx) 5-325 Mg Tablet PO 1 tab Q4H PRN Administration Pain Rated 4-6 Al Hydrox/Mg Hydrox/Simethicone 30 ml 07/29/23 00:18 Mag Hydrox/Al Hydrox/Simeth 30 Ml Udc PO QID PRN Dyspepsia Apixaban 5 mg 08/01/23 21:00 08/05/23 09:15 Apixaban 5 Mg Tablet PO 5 mg Q12HR ADAM Administration Buspirone HCl 5 mg 07/29/23 09:00 Buspirone Hcl 5 Mg Tablet PO BID ADAM Dextrose 12.5 gm 07/29/23 00:21 07/30/23 07:56 Dextrose 50% 25 Gm/50 Ml Syringe IV PUSH 12.5 gm PRN PRN Administration Hypoglycemia Protocol Diphenhydramine HCl 25 mg 08/04/23 12:22 08/05/23 09:14 Diphenhydramine Hcl Cap 25 Mg Capsule PO 25 mg Q6H PRN Administration Itching Empagliflozin 25 mg 07/29/23 09:00 Empagliflozin 25 Mg Tablet PO DAILY ADAM Es
--- NOTE | 2023-08-05 13:27 | PM.IMPN ---
Progress Note: A&P Assessment and Plan (1) Septic shock: Code(s): A41.9 - Sepsis, unspecified organism; R65.21 - Severe sepsis with septic shock Status: Acute Assessment and Plan: Septic shock likely related to cholangitis, 07/27: Patient presented with nausea, vomiting, fevers, chills, was found to be hypotensive in the ER despite IV fluids per sepsis protocol. PICC line placed In the ER and patient was started on norepinephrine, no longer requiring norepinephrine. BP remains stable. - Lactic acid within normal - Blood cultures drawn on 07/27: Group B strep and klebsiella pneumoniae - Blood cultures drawn on 07/30: NGTD -Antibiotics: vancomycin and Zosyn (07/27-07/30), cultures sensitive to Rocephin, started on 07/30 - WBC remain stable likely an inflammatory component on top of infection, vital signs remain stable (2) Cholangitis: Code(s): K83.09 - Other cholangitis Status: Acute Assessment and Plan: 07/03/2023: recent laparoscopic cholecystectomy 07/07: ERCP o for postop bile leak with stent placement 07/27: Patient presented with pneumobilia on CT scan of the abdomen and pelvis along with fluid collection to the gallbladder fossa -CT abdomen and pelvis Impression: -New small amount of air peripherally in the upper right hepatic lobe, unclear whether this is pneumobilia versus parenchymal air. There is also suggestion of subtle ill-defined parenchymal hypodensity surrounding the air in this region. Infective cholangitis/hepatitis is a consideration in this region. -Decreasing fluid collection to gallbladder fossa, now measuring 1.6 cm in diameter. -Common bile duct and main pancreatic stents in place. 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 GI has evaluated the patient,s/p ERCP with stent removal on 07/30/2023. No bile leak noted. -surgery also following the patient, no surgical intervention required at this time -continue antibiotics as above 08/01: Patient endorsing worsening abdominal pain with bloating on exam. WBC stable. Afebrile. Vitals WNL. - CT abdomen and pelvis Impressions: - 2 persistent areas of focal, parenchymal air-fluid collections towards the dome of the liver, similar to prior exam. Focal hepatic abscesses are suspected, versus possibly other postprocedural or iatrogenic change. - Spoke with radiologist who states that the abscess is too small to drain. Discussed this with surgery who states transfer is not required at this time. Patient will likely require a longer course of IV antibiotics. Will discuss this with ID pharmacy in the am. 08/02: Patient started on IV levaquin and flagyl PO. WBC remains elevated but stable, likely an inflammatory component. Afebrile. LFTs WNL. 08/04: Patient remains on PO levaquin and flagyl. Discussed this with ID pharmacy. Per GI patient will likely need a repeat CT scan in 3-4 weeks to reevaluate abscess. (3) Type 2 diabetes mellitus: Qualifiers: Diabetes mellitus complication status: with hyperglycemia Diabetes mellitus [facility] insulin use: with long term care phlebotomist use Qualified Code(s): E11.65 - Type 2 diabetes mellitus with hyperglycemia; Z79.4 - [facility] (current) use of insulin Code(s): E11.9 - Type 2 diabetes mellitus without complications Status: Acute Assessment and Plan: - hypoglycemia protocol - POC blood glucose ACHS - home medication - tresibar 26 units daily, novolog 5 units PRN, metformin 500 mg daily, linagliptin 5 mg daily, and jardiance 25 mg daily - correct regimen ordered - low dose TIDWM and HS - A1C 07/06/23: 6.1 (4) A-fib: Code(s): I48.91 - Unspecified atrial fibrillation Status: Acute Assessment and Plan: Patient on Eliquis and metoprolol at home for AFib -07/28 started on heparin infusion, holding Eliquis for ERCP -07/29: Holding heparin infusion for ERCP -07/31: metoprolol and eliquis resumed Time Spent With Patient Time with patient: 25 - 35 minutes Subjective Date/t
--- NOTE | 2023-08-05 13:31 | PC.NURSE ---
Medical cards and information regarding patient's REJECTOR shunt placed in paper chart. Cards returned to patient.
[2023-08-05] MEDS: POTASSIUM CHLORIDE 20 MEQ ER TABLET 40 MEQ PO (13:43)
[2023-08-05 14:00] VITALS: BP 137/70; PULSE 75; RESP 20; TEMP 36.5; O2SAT 95
[2023-08-05 16:05] LABS: Glucose Point of Care 122 mg/dl (65-105)
[2023-08-05 21:36] VITALS: PULSE 64
[2023-08-05 21:57] VITALS: BP 139/76; PULSE 85; RESP 18; TEMP 36.9; O2SAT 96
[2023-08-06] LABS: Glucose Point of Care 169 mg/dl (65-105)
[2023-08-06 04:23] VITALS: BP 139/70; PULSE 82; RESP 18; TEMP 36.8; O2SAT 95
[2023-08-06] MEDS: metroNIDAZOLE 500 MG TABLET PO ×3 (06:16→21:34)
[2023-08-06 06:30] LABS: Basophils Absolute Auto 0.1 K/mm3 (0.0-0.1); Basophils Percent Auto 0.5 % (0.2-1.2); Eosinophils Absolute Auto 0.5 K/mm3 (0-0.3); Eosinophils Percent Auto 5.2 % (0-4.4); Hematocrit 26.7 % (37.0-47.0); Hemoglobin 7.9 g/dL (12.0-15.0); Immature Granulocyte Absolute 0.08 K/mm3 (0.00-0.031); Immature Granulocyte Percent A 0.8 % (0-0.5); Lymphocytes Absolute Auto 1.53 K/mm3 (0.9-3.2); Lymphocytes Percent Auto 15.2 % (18.3-44.2); Mean Corpuscular HGB Conc 29.6 g/dl (32-36); Mean Corpuscular Hemoglobin 25.6 pg (26-34); Mean Corpuscular Volume 86.7 fl (80-100); Mean Platelet Volume 10.1 fl (7.4-10.4); Monocytes Absolute Auto 0.9 K/mm3 (0.1-0.6); Monocytes Percent Auto 8.6 % (2.6-8.5); Neutrophils Percent Auto 69.7 % (45.5-73.1); Platelet Count Result 391 k/mm3 (150-375); Red Blood Count 3.08 M/mm3 (4.2-5.4); Red Cell Distribution Width 16.8 % (11.5-14.5); White Blood Count 10.1 K/mm3 (4.5-10.0)
[2023-08-06 06:48] LABS: Alanine Aminotransferase 8 U/L (6-35); Albumin Level 2.8 g/dL (3.5-5.1); Alkaline Phosphatase 91 U/L (38-126); Anion Gap 4 mmol/L (4-12); Aspartate Amino Transferase 15 U/L (14-36); Bilirubin,Total 0.3 mg/dL (0.2-1.3); Blood Urea Nitrogen 3 mg/dL (7-17); Calcium 8.2 mg/dL (8.4-10.2); Carbon Dioxide 28 mmol/L (22-30); Chloride 107 mmol/L (98-107); Estimated CRCL calculation 66 ml/min; Estimated Glomerular Filt Rate > 60; Glucose 157 mg/dL (65-110); Potassium 3.8 mmol/L (3.4-5.0); Sodium 139 mmol/L (137-145)
[2023-08-06 07:35] LABS: Anisocytosis 1+; Hypochromasia 1+; Platelet Estimate Adequate (Adequate); Schistocytes None Seen
--- NOTE | 2023-08-06 07:47 | PM.IMPN ---
Progress Note: A&P Assessment and Plan (1) Septic shock: Code(s): A41.9 - Sepsis, unspecified organism; R65.21 - Severe sepsis with septic shock Status: Acute Assessment and Plan: Septic shock likely related to cholangitis, 07/27: Patient presented with nausea, vomiting, fevers, chills, was found to be hypotensive in the ER despite IV fluids per sepsis protocol. PICC line placed In the ER and patient was started on norepinephrine, no longer requiring norepinephrine. BP remains stable. - Lactic acid within normal - Blood cultures drawn on 07/27: Group B strep and klebsiella pneumoniae - Blood cultures drawn on 07/30: NGTD -Antibiotics: vancomycin and Zosyn (07/27-07/30), cultures sensitive to Rocephin, started on 07/30 - WBC remain stable likely an inflammatory component on top of infection, vital signs remain stable Resolved. (2) Cholangitis: Code(s): K83.09 - Other cholangitis Status: Acute Assessment and Plan: 07/03/2023: recent laparoscopic cholecystectomy 07/07: ERCP o for postop bile leak with stent placement 07/27: Patient presented with pneumobilia on CT scan of the abdomen and pelvis along with fluid collection to the gallbladder fossa -CT abdomen and pelvis Impression: -New small amount of air peripherally in the upper right hepatic lobe, unclear whether this is pneumobilia versus parenchymal air. There is also suggestion of subtle ill-defined parenchymal hypodensity surrounding the air in this region. Infective cholangitis/hepatitis is a consideration in this region. -Decreasing fluid collection to gallbladder fossa, now measuring 1.6 cm in diameter. -Common bile duct and main pancreatic stents in place. 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 GI has evaluated the patient,s/p ERCP with stent removal on 07/30/2023. No bile leak noted. -surgery also following the patient, no surgical intervention required at this time -continue antibiotics as above 08/01: Patient endorsing worsening abdominal pain with bloating on exam. WBC stable. Afebrile. Vitals WNL. - CT abdomen and pelvis Impressions: - 2 persistent areas of focal, parenchymal air-fluid collections towards the dome of the liver, similar to prior exam. Focal hepatic abscesses are suspected, versus possibly other postprocedural or iatrogenic change. - Spoke with radiologist who states that the abscess is too small to drain. Discussed this with surgery who states transfer is not required at this time. Patient will likely require a longer course of IV antibiotics. Will discuss this with ID pharmacy in the am. 08/02: Patient started on IV levaquin and flagyl PO. WBC remains elevated but stable, likely an inflammatory component. Afebrile. LFTs WNL. 08/04: Patient remains on PO levaquin and flagyl. Discussed this with ID pharmacy. Per GI patient will likely need a repeat CT scan in 3-4 weeks to reevaluate abscess. (3) Type 2 diabetes mellitus: Qualifiers: Diabetes mellitus complication status: with hyperglycemia Diabetes mellitus fdc insulin use: with long term care phlebotomist use Qualified Code(s): E11.65 - Type 2 diabetes mellitus with hyperglycemia; Z79.4 - MCFP (current) use of insulin Code(s): E11.9 - Type 2 diabetes mellitus without complications Status: Acute Assessment and Plan: - hypoglycemia protocol - POC blood glucose ACHS - home medication - tresibar 26 units daily, novolog 5 units PRN, metformin 500 mg daily, linagliptin 5 mg daily, and jardiance 25 mg daily - correct regimen ordered - low dose TIDWM and HS - A1C 07/06/23: 6.1 (4) A-fib: Code(s): I48.91 - Unspecified atrial fibrillation Status: Acute Assessment and Plan: Patient on Eliquis and metoprolol at home for AFib -07/28 started on heparin infusion, holding Eliquis for ERCP -07/29: Holding heparin infusion for ERCP -07/31: metoprolol and eliquis resumed (5) (HFpEF) heart failure with preserved ejection fraction:
[2023-08-06 08:07] LABS: Glucose Point of Care 143 mg/dl (65-105)
[2023-08-06 10:10] VITALS: PULSE 82
[2023-08-06] MEDS: APIXABAN 5 MG TABLET PO ×2 (10:10→20:34)
[2023-08-06] MEDS: SACCHAROMYCES BOULARDII 250 MG CAPSULE PO (10:10)
[2023-08-06] MEDS: METOPROLOL TARTRATE 25 MG TABLET PO ×2 (10:10→20:34)
[2023-08-06] MEDS: GABAPENTIN 300 MG CAPSULE PO ×2 (10:10→17:26)
[2023-08-06] MEDS: levoFLOXacin 750 MG TABLET PO (10:10)
[2023-08-06] MEDS: HYDROcodone/acetaminophen (*CRX) 5-325 MG TABLET 1 TAB PO ×2 (10:16→20:34)
[2023-08-06 11:29] LABS: Glucose Point of Care 185 mg/dl (65-105)
--- NOTE | 2023-08-06 11:39 | PM.PNGS ---
Progress Note: A&P Assessment and Plan (1) Bacteremia: Code(s): R78.81 - Bacteremia Status: Acute Assessment and Plan: Blood cx 07/27 +Group B strep and Klebsiella pneumoniae. Repeat blood cx 07/30 NGTD. Overall downward trend of WBC count. Continue antibiotics, currently on oral levofloxacin and metronidazole. (2) Cholangitis: Code(s): K83.09 - Other cholangitis Status: Acute Assessment and Plan: S/p ERCP with biliary and pancreatic stent removal. (3) Liver abscess: Code(s): K75.0 - Abscess of liver Status: Acute Assessment and Plan: Two persistent liver abscesses noted on most recent CT scan. Not amenable to drainage. Continue oral antibiotics. Will need an extended course of 4-6 weeks of oral antibiotics for appropriate treatment. She is complaining of abdominal bloating and distention. She is tolerating a diet but has a poor appetite. Looks like she has not had a BM in 4 days. KUB ordered and showed small amount of stool in the colon, no signs of an ileus. Will try stimulating her bowels to see if this helps. She does have generalized edema and continues to complain of joint pain that is being worked up by the Hospitalist. Plan I have discussed the patient's case and plan of care with Dr. Keller. Subjective Subjective Date/Time Seen: 08/06/23 11:39 Patient reports: no new complaints and afebrile Interval history: Patient still complaining of abdominal distention and bloating. She reports abdominal discomfort from the distention. She denies any nausea or vomiting. She still have lower extremity swelling as well. She continues to complain of generalized joint pain in her shoulders and knees. This has been a continued complaint since she was admitted. Exam Const: General: no acute distress and uncomfortable Orientation/consciousness: patient oriented x3 GI: Inspection: distended GI Palp: Yes Soft to palpation, Yes Tenderness to palpation present (GI) (diffusely tender), No Guarding due to palpation present (GI), Yes No hepatosplenomegaly present and No Rebound tenderness present Auscultation: Hypoactive bowel sounds present Extrem: General: no calf tenderness and edema bilateral (bilateral 2+ pitting edema lower ext) Objective Data Vital Signs Vital Signs: Vital Signs - 24 hr 08/05/23 14:00 08/05/23 21:36 08/05/23 21:57 Temperature 97.7 F 98.4 F Pulse Rate 75 64 85 Respiratory Rate 20 18 Blood Pressure 137/70 139/76 Pulse Oximetry 95 96 Oxygen Delivery 08/05/23 21:36 08/06/23 04:23 08/06/23 10:10 Temperature 98.2 F Pulse Rate 82 82 Respiratory Rate 18 Blood Pressure 139/70 Pulse Oximetry 95 Oxygen Delivery Room Air Intake/Output Intake/Output: Intake & Output 08/03/23 08/04/23 08/05/23 08/06/23 23:59 23:59 23:59 23:59 Intake Total 2183.3 1590 1147 240 Output Total 400 1350 1900 600 Balance 1783.3 785 -731 -930 Meds/Results Medications: Active Medications Generic Name Dose Route Start Last Admin Trade Name Freq PRN Reason Stop Dose Admin Acetaminophen 650 mg 07/28/23 22:39 08/04/23 12:42 Acetaminophen 325 Mg Tablet PO 650 mg Q6H PRN Administration Pain 1-5 or fever Hydrocodone Bitart/Acetaminophen 1 tab 08/03/23 12:54 08/06/23 10:16 Hydrocodone/Acetaminophen (*Crx) 5-325 Mg Tablet PO 1 tab Q4H PRN Administration Pain Rated 4-6 Al Hydrox/Mg Hydrox/Simethicone 30 ml 07/29/23 00:18 Mag Hydrox/Al Hydrox/Simeth 30 Ml Udc PO QID PRN Dyspepsia Apixaban 5 mg 08/01/23 21:00 08/06/23 10:10 Apixaban 5 Mg Tablet PO 5 mg Q12HR ADAM Administration Buspirone HCl 5 mg 07/29/23 09:00 Buspirone Hcl 5 Mg Tablet PO BID ADAM Dextrose 12.5 gm 07/29/23 00:21 07/30/23 07:56 Dextrose 50% 25 Gm/50 Ml Syringe IV PUSH 12.5 gm PRN PRN Administration Hypoglycemia Protocol Diphenhydramine HCl 25 mg 08/04/23 12:22 08/05/23 09:14 Diph
[2023-08-06 14:59] VITALS: BP 125/56; PULSE 72; RESP 16; TEMP 36.3; O2SAT 99
[2023-08-06] MEDS: ACETAMINOPHEN 325 MG TABLET 650 MG PO (15:31)
[2023-08-06] MEDS: FUROSEMIDE INJ 40 MG/4 ML VIAL IV PUSH (15:32)
[2023-08-06 15:46] LABS: Glucose Point of Care 133 mg/dl (65-105)
[2023-08-06 16:35] LABS: Glucose Point of Care 137 mg/dl (65-105)
--- NOTE | 2023-08-06 16:53 | PM.CNCAR ---
Assessment and Plan Assessment and plan (1) (HFpEF) heart failure with preserved ejection fraction: Code(s): I50.30 - Unspecified diastolic (congestive) heart failure Status: Acute Assessment and Plan: Grade III diastolic dysfunction. 08/05/23 Echo: EF 55-60%, grade III diastolic dysfunction (E/e' 16), mod LAE, mild MR/TR, trace PI, RVSP 42 mmHg. No real change since last echo in June; the difference was that she was in atrial fib during one and not the other. Got Lasix 40 mg IV x1 today. Will reassess tomorrow if she needs another dose. (2) Septic shock: Code(s): A41.9 - Sepsis, unspecified organism; R65.21 - Severe sepsis with septic shock Status: Acute Assessment and Plan: Resolved. (3) PAF (paroxysmal atrial fibrillation): Code(s): I48.0 - Paroxysmal atrial fibrillation Status: Acute Assessment and Plan: In sinus rhythm. [id number] 4. On Eliquis and Metoprolol. Was in sinus rhythm and has been over a year since in atrial fib, just on Metoprolol. Her regular sandfill operator surface is Dr. Tristan with [facility]. Due to recurrence of atrial fib in June 2023, tried Sotalol 80 mg PO every 12 hours, but QT interval prolonged likely due to interaction with Lexapro. Therefore Sotalol lowered to 40 mg every 12 hours. Persistent prolonged QT interval, therefore Sotalol stopped on 07/18/23. (4) Hypertension: Qualifiers: Hypertension type: essential hypertension Qualified Code(s): I10 - Essential (primary) hypertension Code(s): I10 - Essential (primary) hypertension Status: Chronic Assessment and Plan: Stable. (5) Hyperlipidemia: Qualifiers: Hyperlipidemia type: unspecified Qualified Code(s): E78.5 - Hyperlipidemia, unspecified Code(s): E78.5 - Hyperlipidemia, unspecified Status: Chronic Assessment and Plan: On Simvastatin. History of Present Illness History of Present Illness Consult date/time: 08/06/23 16:53 Reason For Visit: Pneumobilia Narrative: 73 yr old woman presents to hospital 07/28/23 with sepsis and abdominal pain. She has a history of DM, hypertension, dyslipidemia, PAF. Her cardiology is Dr. Tristan with [facility] at [place]. I was consulted for diastolic heart failure. During this admission she was given IVF and IV antibiotics. Those have been discontinued. She noted swelling of legs and abdominal bloating. A dose of Lasix 40 mg IV x1 given today. She has mild abdominal pain. Denies chest pain, sob, orthopnea, PND, edema, dizziness, palpitations. Review of Systems Review of Systems: All systems reviewed & are unremarkable except as noted in HPI and below Constitutional: Constitutional: Reports as per HPI and Reports fatigue Cardiovascular: Cardiovascular: Reports as per HPI, Denies chest pain and Denies irregular heart rhythm Respiratory: Respiratory: Reports as per HPI and Denies dyspnea Gastrointestinal: Gastrointestinal: Reports as per HPI and Reports abdominal pain Genitourinary: Genitourinary: Reports as per HPI and Denies dysuria Musculoskeletal: Musculoskeletal: Reports as per HPI Neurologic: Reports as per HPI, Denies dizziness and Denies syncope [facility] Past Medical History Medical History (Updated 08/06/23 @ 14:17 by Abbey Garrett PA-C) A-fib Allergies Anxiety Arthritis Asthma Back injury L5 SI injection Back pain Bacteremia Brain bleed (2) CAD (coronary artery disease) Colon polyps Costochondritis Depression Diabetic neuropathy DVT (deep venous thrombosis) (~1979) LLE Generalized pruritus Hyperlipidemia Hypertension IBS (irritable bowel syndrome) Insomnia Leukocytosis Liver abscess Obesity Osteopenia Postmenopausal Thyroid disorder TIA (transient ischemic attack) Trigeminal neuropathy Type 2 diabetes mellitus Urinary incontinence Visceral hypersensitivity syndrome Surgical History Surgical History (Reviewed
[2023-08-06 20:25] VITALS: PULSE 75; RESP 16; O2SAT 99
[2023-08-06 20:34] VITALS: PULSE 75
[2023-08-06] MEDS: diphenhydrAMINE HCl CAP 25 MG CAPSULE PO (20:34)
[2023-08-06 21:24] LABS: Glucose Point of Care 206 mg/dl (65-105)
[2023-08-06 21:36] VITALS: BP 120/76; PULSE 78; RESP 18; TEMP 36.9; O2SAT 98
[2023-08-07] MEDS: metroNIDAZOLE 500 MG TABLET PO ×3 (05:09→22:08)
[2023-08-07 05:41] VITALS: BP 152/72; PULSE 72; RESP 18; TEMP 36.4; O2SAT 97
[2023-08-07] MEDS: ONDANSETRON HCL ODT 4 MG TABLET PO (05:46)
[2023-08-07] MEDS: ACETAMINOPHEN 325 MG TABLET 650 MG PO ×2 (05:46→20:26)
[2023-08-07 06:18] LABS: Basophils Absolute Auto 0.1 K/mm3 (0.0-0.1); Basophils Percent Auto 0.8 % (0.2-1.2); Eosinophils Absolute Auto 0.4 K/mm3 (0-0.3); Eosinophils Percent Auto 4.6 % (0-4.4); Hematocrit 28.5 % (37.0-47.0); Hemoglobin 8.6 g/dL (12.0-15.0); Immature Granulocyte Absolute 0.08 K/mm3 (0.00-0.031); Immature Granulocyte Percent A 0.9 % (0-0.5); Lymphocytes Absolute Auto 1.96 K/mm3 (0.9-3.2); Lymphocytes Percent Auto 22.5 % (18.3-44.2); Mean Corpuscular HGB Conc 30.2 g/dl (32-36); Mean Corpuscular Hemoglobin 25.6 pg (26-34); Mean Corpuscular Volume 84.8 fl (80-100); Mean Platelet Volume 9.8 fl (7.4-10.4); Monocytes Absolute Auto 0.9 K/mm3 (0.1-0.6); Monocytes Percent Auto 9.9 % (2.6-8.5); Neutrophils Absolute Auto 5.4 K/mm3 (1.3-6.7); Neutrophils Percent Auto 61.3 % (45.5-73.1); Platelet Count Result 405 k/mm3 (150-375); Red Blood Count 3.36 M/mm3 (4.2-5.4); Red Cell Distribution Width 16.6 % (11.5-14.5); White Blood Count 8.7 K/mm3 (4.5-10.0)
[2023-08-07 06:32] LABS: Alanine Aminotransferase 8 U/L (6-35); Alkaline Phosphatase 93 U/L (38-126); Anion Gap 5 mmol/L (4-12); Aspartate Amino Transferase 16 U/L (14-36); Bilirubin,Total 0.4 mg/dL (0.2-1.3); Blood Urea Nitrogen 4 mg/dL (7-17); Calcium 8.2 mg/dL (8.4-10.2); Carbon Dioxide 30 mmol/L (22-30); Chloride 104 mmol/L (98-107); Estimated CRCL calculation 66 ml/min; Estimated Glomerular Filt Rate > 60; Glucose 154 mg/dL (65-110); Potassium 3.1 mmol/L (3.4-5.0); Sodium 139 mmol/L (137-145)
--- NOTE | 2023-08-07 07:49 | PM.PNCARD ---
Progress Note: A&P Assessment and Plan (1) (HFpEF) heart failure with preserved ejection fraction: Code(s): I50.30 - Unspecified diastolic (congestive) heart failure Status: Acute Assessment and Plan: Grade III diastolic dysfunction. 08/05/23 Echo: EF 55-60%, grade III diastolic dysfunction (E/e' 16), mod LAE, mild MR/TR, trace PI, RVSP 42 mmHg. No real change since last echo in June; the difference was that she was in atrial fib during one and not the other. Got Lasix 40 mg IV x1. No need for more Lasix. Will sign off, please call with any questions. Her regular robotics technician is Dr. Tristan with [facility]. (2) Septic shock: Code(s): A41.9 - Sepsis, unspecified organism; R65.21 - Severe sepsis with septic shock Status: Acute Assessment and Plan: Resolved. (3) PAF (paroxysmal atrial fibrillation): Code(s): I48.0 - Paroxysmal atrial fibrillation Status: Acute Assessment and Plan: In sinus rhythm. [id number] 4. On Eliquis and Metoprolol. Was in sinus rhythm and has been over a year since in atrial fib, just on Metoprolol. Her regular robotics technician is Dr. Tristan with [facility]. Due to recurrence of atrial fib in June 2023, tried Sotalol 80 mg PO every 12 hours, but QT interval prolonged likely due to interaction with Lexapro. Therefore Sotalol lowered to 40 mg every 12 hours. Persistent prolonged QT interval, therefore Sotalol stopped on 07/18/23. (4) Hypertension: Qualifiers: Hypertension type: essential hypertension Qualified Code(s): I10 - Essential (primary) hypertension Code(s): I10 - Essential (primary) hypertension Status: Chronic Assessment and Plan: Stable. (5) Hyperlipidemia: Qualifiers: Hyperlipidemia type: unspecified Qualified Code(s): E78.5 - Hyperlipidemia, unspecified Code(s): E78.5 - Hyperlipidemia, unspecified Status: Chronic Assessment and Plan: On Simvastatin. Subjective Date/time seen: 08/07/23 07:49 Interval history: Denies chest pain or sob. Minimal edema of legs now. Has some abdominal soreness and bloating. Exam Const: General: cooperative, healthy appearing and comfortable Orientation/consciousness: oriented to person, oriented to place and oriented to time Resp: Auscultation: clear to auscultation bilaterally, no crackles, no rales, no rhonchi and no wheezes Cardio: Rate: regular rate Rhythm: regular rhythm Heart sounds: no murmurs Peripheral pulses: dorsalis pedis present Neuro: General: oriented to person, oriented to place and oriented to time Extrem: Right lower extremity: edema Left lower extremity: edema Other: Trace pedal edema and lower extremity edema bilaterally Objective Data Vital Signs Vital Signs: Vital Signs - 24 hr 08/06/23 10:10 08/06/23 14:59 08/06/23 20:34 Temperature 97.4 F L Pulse Rate 82 72 75 Respiratory Rate 16 Blood Pressure 125/56 L Pulse Oximetry 99 Oxygen Delivery 08/06/23 20:25 08/06/23 21:36 08/07/23 05:41 Temperature 98.4 F 97.6 F Pulse Rate 75 78 72 Respiratory Rate 16 18 18 Blood Pressure 120/76 152/72 H Pulse Oximetry 99 98 97 Oxygen Delivery Room Air Intake/Output Intake/Output: Intake & Output 08/04/23 08/05/23 08/06/23 08/07/23 23:59 23:59 23:59 23:59 Intake Total 1590 1147 1140 450 Output Total 1350 1900 1600 Balance 013 -449 -117 450 Meds/Results Medications: Active Medications Generic Name Dose Route Start Last Admin Trade Name Freq PRN Reason Stop Dose Admin Acetaminophen 650 mg 07/28/23 22:39 08/07/23 05:46 Acetaminophen 325 Mg Tablet PO 650 mg Q6H PRN Administration Pain 1-5 or fever Hydrocodone Bitart/Acetaminophen 1 tab 08/03/23 12:54 08/06/23 20:34 Hydrocodone/Acetaminophen (*Crx) 5-325 Mg Tablet PO 1 tab Q4H PRN Administration Pain Rated 4-6 Al Hydrox/Mg Hydrox/Simethicone 30 ml 07/29/23
[2023-08-07 08:13] LABS: Glucose Point of Care 154 mg/dl (65-105)
[2023-08-07] MEDS: POTASSIUM CHLORIDE 20 MEQ ER TABLET 40 MEQ PO ×2 (08:25→10:13)
[2023-08-07 08:26] VITALS: PULSE 72
[2023-08-07] MEDS: METOPROLOL TARTRATE 25 MG TABLET PO ×2 (08:26→20:23)
[2023-08-07] MEDS: APIXABAN 5 MG TABLET PO ×2 (08:26→20:23)
[2023-08-07] MEDS: GABAPENTIN 300 MG CAPSULE PO ×2 (08:26→16:13)
[2023-08-07] MEDS: SACCHAROMYCES BOULARDII 250 MG CAPSULE PO (08:26)
[2023-08-07] MEDS: levoFLOXacin 750 MG TABLET PO (08:26)
[2023-08-07] MEDS: polyethylene glycoL 3350 17 GM POWD.PACK PO (08:59)
--- NOTE | 2023-08-07 09:23 | PM.IMPN ---
Progress Note: A&P Assessment and Plan (1) Septic shock: Code(s): A41.9 - Sepsis, unspecified organism; R65.21 - Severe sepsis with septic shock Status: Acute Assessment and Plan: Septic shock likely related to cholangitis, 07/27: Patient presented with nausea, vomiting, fevers, chills, was found to be hypotensive in the ER despite IV fluids per sepsis protocol. PICC line placed In the ER and patient was started on norepinephrine, no longer requiring norepinephrine. BP remains stable. - Lactic acid within normal - Blood cultures drawn on 07/27: Group B strep and klebsiella pneumoniae - Blood cultures drawn on 07/30: NGTD -Antibiotics: vancomycin and Zosyn (07/27-07/30), cultures sensitive to Rocephin, started on 07/30 - WBC remain stable likely an inflammatory component on top of infection, vital signs remain stable Resolved. (2) Cholangitis: Code(s): K83.09 - Other cholangitis Status: Acute Assessment and Plan: 07/03/2023: recent laparoscopic cholecystectomy 07/07: ERCP o for postop bile leak with stent placement 07/27: Patient presented with pneumobilia on CT scan of the abdomen and pelvis along with fluid collection to the gallbladder fossa -CT abdomen and pelvis Impression: -New small amount of air peripherally in the upper right hepatic lobe, unclear whether this is pneumobilia versus parenchymal air. There is also suggestion of subtle ill-defined parenchymal hypodensity surrounding the air in this region. Infective cholangitis/hepatitis is a consideration in this region. -Decreasing fluid collection to gallbladder fossa, now measuring 1.6 cm in diameter. -Common bile duct and main pancreatic stents in place. -Trace pelvic ascites, likely related to OTOLARYNGOLOGIST shunt. GI has evaluated the patient,s/p ERCP with stent removal on 07/30/2023. No bile leak noted. -surgery also following the patient, no surgical intervention required at this time -continue antibiotics as above 08/01: Patient endorsing worsening abdominal pain with bloating on exam. WBC stable. Afebrile. Vitals WNL. - CT abdomen and pelvis Impressions: - 2 persistent areas of focal, parenchymal air-fluid collections towards the dome of the liver, similar to prior exam. Focal hepatic abscesses are suspected, versus possibly other postprocedural or iatrogenic change. - Spoke with radiologist who states that the abscess is too small to drain. Discussed this with surgery who states transfer is not required at this time. Patient will likely require a longer course of IV antibiotics. Will discuss this with ID pharmacy in the am. 08/02: Patient started on IV levaquin and flagyl PO. WBC remains elevated but stable, likely an inflammatory component. Afebrile. LFTs WNL. 08/04: Patient remains on PO levaquin and flagyl. Discussed this with ID pharmacy. Per GI patient will likely need a repeat CT scan in 3-4 weeks to reevaluate abscess. 08/07/2023 continue p.o. Levaquin and Flagyl will need elongated course of 4-6 weeks for general surgery (3) Type 2 diabetes mellitus: Qualifiers: Diabetes mellitus nursing home insulin use: with termite exterminator helper use Diabetes mellitus complication status: with hyperglycemia Qualified Code(s): E11.65 - Type 2 diabetes mellitus with hyperglycemia; Z79.4 - long-term (current) use of insulin Code(s): E11.9 - Type 2 diabetes mellitus without complications Status: Acute Assessment and Plan: - hypoglycemia protocol - POC blood glucose ACHS - home medication - tresibar 26 units daily, novolog 5 units PRN, metformin 500 mg daily, linagliptin 5 mg daily, and jardiance 25 mg daily - correct regimen ordered - low dose TIDWM and HS - A1C 07/06/23: 6.1 - Current glucose stable at 154 (4) A-fib: Code(s): I48.91 - Unspecified atrial fibrillation Status: Acute Assessment and Plan: Patient on Eliquis and metoprolol at home for AFib -07/28 started on heparin infusion, holding Eliquis for ERCP -07/29: Hol
[2023-08-07 11:45] LABS: Glucose Point of Care 133 mg/dl (65-105)
[2023-08-07] MEDS: HYDROcodone/acetaminophen (*CRX) 5-325 MG TABLET 1 TAB PO (13:07)
[2023-08-07 14:38] VITALS: BP 130/67; PULSE 72; RESP 16; TEMP 36.9; O2SAT 98
--- NOTE | 2023-08-07 15:43 | PM.PNGS ---
Progress Note: A&P Assessment and Plan (1) Liver abscess: Code(s): K75.0 - Abscess of liver Status: Acute Assessment and Plan: Two persistent small liver abscesses noted on most recent CT scan. Not amenable to drainage. WBC normalized and she is clinically improving. Will need an extended course of 4-6 weeks of oral antibiotics for appropriate treatment. Okay to discharge her from a surgical standpoint with oral antibiotics. Awaiting insurance approval for rehab. Will sign off at this point. Call with any surgical questions or concerns. Follow-up in the office with Dr. Keller in the next few weeks. (2) Bacteremia: Code(s): R78.81 - Bacteremia Status: Acute Assessment and Plan: Blood cx 07/27 +Group B strep and Klebsiella pneumoniae. Repeat blood cx 07/30 NGTD. Continue oral antibiotics. (3) Cholangitis: Code(s): K83.09 - Other cholangitis Status: Acute Assessment and Plan: S/p ERCP with biliary and pancreatic stent removal. Plan I have discussed the patient's case and plan of care with Dr. Keller. Subjective Subjective Date/Time Seen: 08/07/23 15:43 Patient reports: no new complaints, feels better and afebrile Interval history: Patient seen and feeling better today. She reports improvement in her edema after having some furosemide. She still has some abdominal discomfort with the distention. She is tolerating a diet. No other complaints at this time. WBC normalized. Exam Const: General: comfortable and no acute distress Orientation/consciousness: patient oriented x3 GI: Inspection: Abdominal wall edema (diffuse, improved), non-distended and incision (port site incisions well healed) GI Palp: Yes Soft to palpation, Yes Tenderness to palpation present (GI) (very mild diffuse tenderness), No Guarding due to palpation present (GI) and No Rebound tenderness present Percussion: Yes normal to percussion Auscultation: normal bowel sounds Extrem: General: edema bilateral (lower extremity edema improved) Objective Data Vital Signs Vital Signs: Vital Signs - 24 hr 08/06/23 20:34 08/06/23 20:25 08/06/23 21:36 Temperature 98.4 F Pulse Rate 75 75 78 Respiratory Rate 16 18 Blood Pressure 120/76 Pulse Oximetry 99 98 Oxygen Delivery Room Air 08/07/23 05:41 08/07/23 08:26 08/07/23 08:00 Temperature 97.6 F Pulse Rate 72 72 Respiratory Rate 18 Blood Pressure 152/72 H Pulse Oximetry 97 Oxygen Delivery Room Air 08/07/23 14:38 Temperature 98.4 F Pulse Rate 72 Respiratory Rate 16 Blood Pressure 130/67 Pulse Oximetry 98 Oxygen Delivery Intake/Output Intake/Output: Intake & Output 08/04/23 08/05/23 08/06/23 08/07/23 23:59 23:59 23:59 23:59 Intake Total 1590 1147 1140 780 Output Total 1350 1900 1600 Balance 797 -980 -516 780 Meds/Results Medications: Active Medications Generic Name Dose Route Start Last Admin Trade Name Freq PRN Reason Stop Dose Admin Acetaminophen 650 mg 07/28/23 22:39 08/07/23 05:46 Acetaminophen 325 Mg Tablet PO 650 mg Q6H PRN Administration Pain 1-5 or fever Hydrocodone Bitart/Acetaminophen 1 tab 08/03/23 12:54 08/07/23 13:07 Hydrocodone/Acetaminophen (*Crx) 5-325 Mg Tablet PO 1 tab Q4H PRN Administration Pain Rated 4-6 Al Hydrox/Mg Hydrox/Simethicone 30 ml 07/29/23 00:18 Mag Hydrox/Al Hydrox/Simeth 30 Ml Udc PO QID PRN Dyspepsia Apixaban 5 mg 08/01/23 21:00 08/07/23 08:26 Apixaban 5 Mg Tablet PO 5 mg Q12HR ADAM Administration Bisacodyl 10 mg 08/06/23 11:43 Bisacodyl 10 Mg Suppository RECTAL QAM PRN Constipation Buspirone HCl 5 mg 07/29/23 09:00 Buspirone Hcl 5 Mg Tablet PO BID ADAM Dextrose 12.5 gm 07/29/23 00:21 07/30/23 07:56 Dextrose 50% 25 Gm/50 Ml Syringe IV PUSH 12.5 gm PRN PRN Administration Hypoglycemia Protocol Diphenhydramine HCl 25 mg 08/04/23 12:22 08/06/23 20:34 Diphe
[2023-08-07 16:55] LABS: Glucose Point of Care 150 mg/dl (65-105)
[2023-08-07 20:11] LABS: Glucose Point of Care 172 mg/dl (65-105)
[2023-08-07 20:23] VITALS: PULSE 70
[2023-08-07 20:25] VITALS: PULSE 84; RESP 13; O2SAT 99
[2023-08-07] MEDS: diphenhydrAMINE HCl CAP 25 MG CAPSULE PO (20:27)
[2023-08-07 21:08] VITALS: BP 138/66; PULSE 84; RESP 13; TEMP 36.7; O2SAT 99
[2023-08-08] MEDS: HYDROcodone/acetaminophen (*CRX) 5-325 MG TABLET 1 TAB PO (04:14)
[2023-08-08 05:34] VITALS: BP 131/60; PULSE 76; RESP 12; TEMP 36.4; O2SAT 98
[2023-08-08] MEDS: metroNIDAZOLE 500 MG TABLET PO ×3 (05:55→21:05)
[2023-08-08 07:18] LABS: Basophils Absolute Auto 0.1 K/mm3 (0.0-0.1); Basophils Percent Auto 0.6 % (0.2-1.2); Eosinophils Absolute Auto 0.3 K/mm3 (0-0.3); Eosinophils Percent Auto 2.6 % (0-4.4); Hematocrit 27.4 % (37.0-47.0); Hemoglobin 8.4 g/dL (12.0-15.0); Immature Granulocyte Absolute 0.06 K/mm3 (0.00-0.031); Immature Granulocyte Percent A 0.5 % (0-0.5); Lymphocytes Absolute Auto 1.44 K/mm3 (0.9-3.2); Lymphocytes Percent Auto 12.6 % (18.3-44.2); Mean Corpuscular HGB Conc 30.7 g/dl (32-36); Mean Corpuscular Hemoglobin 26.3 pg (26-34); Mean Corpuscular Volume 85.9 fl (80-100); Mean Platelet Volume 10.1 fl (7.4-10.4); Monocytes Absolute Auto 0.8 K/mm3 (0.1-0.6); Neutrophils Absolute Auto 8.8 K/mm3 (1.3-6.7); Neutrophils Percent Auto 76.7 % (45.5-73.1); Platelet Count Result 409 k/mm3 (150-375); Red Blood Count 3.19 M/mm3 (4.2-5.4); Red Cell Distribution Width 16.6 % (11.5-14.5); White Blood Count 11.4 K/mm3 (4.5-10.0)
[2023-08-08 07:29] LABS: Alanine Aminotransferase 8 U/L (6-35); Albumin Level 3.1 g/dL (3.5-5.1); Alkaline Phosphatase 93 U/L (38-126); Anion Gap 6 mmol/L (4-12); Aspartate Amino Transferase 16 U/L (14-36); Bilirubin,Total 0.4 mg/dL (0.2-1.3); Blood Urea Nitrogen 4 mg/dL (7-17); Calcium 8.3 mg/dL (8.4-10.2); Carbon Dioxide 28 mmol/L (22-30); Chloride 106 mmol/L (98-107); Estimated CRCL calculation 67 ml/min; Estimated Glomerular Filt Rate > 60; Glucose 159 mg/dL (65-110); Potassium 3.8 mmol/L (3.4-5.0); Sodium 140 mmol/L (137-145)
[2023-08-08 07:55] LABS: Glucose Point of Care 157 mg/dl (65-105)
[2023-08-08 09:15] VITALS: PULSE 76
[2023-08-08] MEDS: APIXABAN 5 MG TABLET PO ×2 (09:15→20:45)
[2023-08-08] MEDS: levoFLOXacin 750 MG TABLET PO (09:15)
[2023-08-08] MEDS: SACCHAROMYCES BOULARDII 250 MG CAPSULE PO (09:15)
[2023-08-08] MEDS: METOPROLOL TARTRATE 25 MG TABLET PO ×2 (09:15→20:45)
[2023-08-08] MEDS: GABAPENTIN 300 MG CAPSULE PO ×2 (09:15→17:23)
--- NOTE | 2023-08-08 10:13 | PCNFU ---
Nutrition Follow-Up Complete: Severe protein calorie malnutrition related to acute intra-abdominal infection, sepsis as evidenced by weight loss 9%/3 months; Intakes <50% needs >5 days. Goal:Diet advancement Improve PO intake once medically able Pt current nutrition is Diabetic, Glucerna shakes BID. Nutrition recommendation: Change supplement to thrive nutrition ice cream cups daily Last recorded weight is 81.5 kg. Bowel Motility: +BM 08/06 Labs Reviewed: Hgb:8.4, HCT:27.4, Alb:3.1, Glu:159 Meds Noted: eliquis, lantus Skin: no skin issues noted Additional Notes: Pt continues on a diabetic diet, intake averages 50%, noted family brings food in to supplement as well. Pt reports good appetite. Does not like the supplement shakes, will change to nutrition ice cream cups per preference. Monitoring intakes, weights, labs, diet advancement plan of care Follow up every 7 days
--- NOTE | 2023-08-08 11:55 | PM.IMPN ---
Progress Note: A&P Assessment and Plan (1) Septic shock: Code(s): A41.9 - Sepsis, unspecified organism; R65.21 - Severe sepsis with septic shock Status: Acute Assessment and Plan: Septic shock likely related to cholangitis, 07/27: Patient presented with nausea, vomiting, fevers, chills, was found to be hypotensive in the ER despite IV fluids per sepsis protocol. PICC line placed In the ER and patient was started on norepinephrine, no longer requiring norepinephrine. BP remains stable. - Lactic acid within normal - Blood cultures drawn on 07/27: Group B strep and klebsiella pneumoniae - Blood cultures drawn on 07/30: NGTD -Antibiotics: vancomycin and Zosyn (07/27-07/30), cultures sensitive to Rocephin, started on 07/30 - WBC remain stable likely an inflammatory component on top of infection, vital signs remain stable Resolved. (2) Cholangitis: Code(s): K83.09 - Other cholangitis Status: Acute Assessment and Plan: 07/03/2023: recent laparoscopic cholecystectomy 07/07: ERCP o for postop bile leak with stent placement 07/27: Patient presented with pneumobilia on CT scan of the abdomen and pelvis along with fluid collection to the gallbladder fossa -CT abdomen and pelvis Impression: -New small amount of air peripherally in the upper right hepatic lobe, unclear whether this is pneumobilia versus parenchymal air. There is also suggestion of subtle ill-defined parenchymal hypodensity surrounding the air in this region. Infective cholangitis/hepatitis is a consideration in this region. -Decreasing fluid collection to gallbladder fossa, now measuring 1.6 cm in diameter. -Common bile duct and main pancreatic stents in place. -Trace pelvic ascites, likely related to MEDICAL TRANSCRIPTION EDITOR shunt. GI has evaluated the patient,s/p ERCP with stent removal on 07/30/2023. No bile leak noted. -surgery also following the patient, no surgical intervention required at this time -continue antibiotics as above 08/01: Patient endorsing worsening abdominal pain with bloating on exam. WBC stable. Afebrile. Vitals WNL. - CT abdomen and pelvis Impressions: - 2 persistent areas of focal, parenchymal air-fluid collections towards the dome of the liver, similar to prior exam. Focal hepatic abscesses are suspected, versus possibly other postprocedural or iatrogenic change. - Spoke with radiologist who states that the abscess is too small to drain. Discussed this with surgery who states transfer is not required at this time. Patient will likely require a longer course of IV antibiotics. Will discuss this with ID pharmacy in the am. 08/02: Patient started on IV levaquin and flagyl PO. WBC remains elevated but stable, likely an inflammatory component. Afebrile. LFTs WNL. 08/04: Patient remains on PO levaquin and flagyl. Discussed this with ID pharmacy. Per GI patient will likely need a repeat CT scan in 3-4 weeks to reevaluate abscess. 08/07/2023 continue p.o. Levaquin and Flagyl will need elongated course of 4-6 weeks for general surgery 08/08/2023: Continue PO Levaquin and Flagyl, end date noted on the antibiotic order (3) Type 2 diabetes mellitus: Qualifiers: Diabetes mellitus complication status: with hyperglycemia Diabetes mellitus long-term insulin use: with long-term use Qualified Code(s): E11.65 - Type 2 diabetes mellitus with hyperglycemia; Z79.4 - nursing home (current) use of insulin Code(s): E11.9 - Type 2 diabetes mellitus without complications Status: Acute Assessment and Plan: - hypoglycemia protocol - POC blood glucose ACHS - home medication - tresibar 26 units daily, novolog 5 units PRN, metformin 500 mg daily, linagliptin 5 mg daily, and jardiance 25 mg daily - correct regimen ordered - low dose TIDWM and HS - A1C 07/06/23: 6.1 - Current glucose stable at 159 (4) A-fib: Code(s): I48.91 - Unspecified atrial fibrillation Status: Acute Assessment and Plan: Patient on Eliquis and meto
[2023-08-08 11:56] LABS: Glucose Point of Care 161 mg/dl (65-105)
[2023-08-08 14:00] VITALS: BP 130/60; PULSE 80; RESP 18; TEMP 36.6; O2SAT 98
[2023-08-08 16:28] LABS: Glucose Point of Care 150 mg/dl (65-105)
[2023-08-08] MEDS: ONDANSETRON HCL ODT 4 MG TABLET PO (18:43)
[2023-08-08 20:06] LABS: Glucose Point of Care 229 mg/dl (65-105)
[2023-08-08 20:40] VITALS: PULSE 95; RESP 17; O2SAT 99
[2023-08-08 20:45] VITALS: PULSE 76
[2023-08-08] MEDS: diphenhydrAMINE HCl CAP 25 MG CAPSULE PO (20:45)
[2023-08-08 21:10] VITALS: BP 132/54; PULSE 95; RESP 17; TEMP 36.7; O2SAT 99
[2023-08-09 05:49] VITALS: BP 112/69; PULSE 110; RESP 14; TEMP 36.5; O2SAT 97
[2023-08-09] MEDS: metroNIDAZOLE 500 MG TABLET PO ×3 (05:57→20:36)
[2023-08-09] MEDS: ACETAMINOPHEN 325 MG TABLET 650 MG PO (06:10)
[2023-08-09 06:47] LABS: Basophils Absolute Auto 0.1 K/mm3 (0.0-0.1); Basophils Percent Auto 0.7 % (0.2-1.2); Eosinophils Absolute Auto 0.2 K/mm3 (0-0.3); Eosinophils Percent Auto 1.8 % (0-4.4); Hematocrit 29.7 % (37.0-47.0); Hemoglobin 9.1 g/dL (12.0-15.0); Immature Granulocyte Absolute 0.05 K/mm3 (0.00-0.031); Immature Granulocyte Percent A 0.4 % (0-0.5); Lymphocytes Absolute Auto 1.93 K/mm3 (0.9-3.2); Lymphocytes Percent Auto 16.2 % (18.3-44.2); Mean Corpuscular HGB Conc 30.6 g/dl (32-36); Mean Corpuscular Hemoglobin 25.9 pg (26-34); Mean Corpuscular Volume 84.6 fl (80-100); Mean Platelet Volume 9.9 fl (7.4-10.4); Monocytes Percent Auto 8.3 % (2.6-8.5); Neutrophils Absolute Auto 8.6 K/mm3 (1.3-6.7); Neutrophils Percent Auto 72.6 % (45.5-73.1); Platelet Count Result 458 k/mm3 (150-375); Red Blood Count 3.51 M/mm3 (4.2-5.4); Red Cell Distribution Width 16.9 % (11.5-14.5); White Blood Count 11.9 K/mm3 (4.5-10.0)
[2023-08-09 06:56] LABS: Alanine Aminotransferase 7 U/L (6-35); Albumin Level 3.2 g/dL (3.5-5.1); Alkaline Phosphatase 92 U/L (38-126); Anion Gap 6 mmol/L (4-12); Aspartate Amino Transferase 15 U/L (14-36); Bilirubin,Total 0.5 mg/dL (0.2-1.3); Blood Urea Nitrogen 5 mg/dL (7-17); Calcium 8.2 mg/dL (8.4-10.2); Carbon Dioxide 26 mmol/L (22-30); Chloride 107 mmol/L (98-107); Estimated CRCL calculation 67 ml/min; Estimated Glomerular Filt Rate > 60; Glucose 183 mg/dL (65-110); Sodium 139 mmol/L (137-145)
[2023-08-09 07:39] LABS: Glucose Point of Care 185 mg/dl (65-105)
[2023-08-09] MEDS: APIXABAN 5 MG TABLET PO ×2 (08:35→20:35)
[2023-08-09] MEDS: levoFLOXacin 750 MG TABLET PO (08:35)
[2023-08-09] MEDS: SACCHAROMYCES BOULARDII 250 MG CAPSULE PO (08:35)
[2023-08-09] MEDS: GABAPENTIN 300 MG CAPSULE PO ×2 (08:35→17:35)
[2023-08-09 08:36] VITALS: PULSE 100
[2023-08-09] MEDS: METOPROLOL TARTRATE 25 MG TABLET PO ×2 (08:36→20:35)
[2023-08-09] MEDS: ONDANSETRON HCL ODT 4 MG TABLET PO (10:54)
[2023-08-09] MEDS: diphenhydrAMINE HCl INJ 50 MG/ML VIAL 25 MG IV PUSH (10:54)
[2023-08-09] MEDS: METOCLOPRAMIDE HCL INJ 10 MG/2 ML VIAL IV PUSH (10:54)
[2023-08-09] MEDS: SUMAtriptan SUCCINATE 6 MG/0.5 ML VIAL SUB-Q (10:55)
[2023-08-09 11:40] LABS: Glucose Point of Care 223 mg/dl (65-105)
[2023-08-09] MEDS: INSULIN ASPART (*BKC) 100 UNITS/ML SUB-Q (12:38)
--- NOTE | 2023-08-09 13:48 | PM.IMPN ---
Progress Note: A&P Assessment and Plan (1) Septic shock: Code(s): A41.9 - Sepsis, unspecified organism; R65.21 - Severe sepsis with septic shock Status: Acute Assessment and Plan: Septic shock likely related to cholangitis, 07/27: Patient presented with nausea, vomiting, fevers, chills, was found to be hypotensive in the ER despite IV fluids per sepsis protocol. PICC line placed In the ER and patient was started on norepinephrine, no longer requiring norepinephrine. BP remains stable. - Lactic acid within normal - Blood cultures drawn on 07/27: Group B strep and klebsiella pneumoniae - Blood cultures drawn on 07/30: NGTD -Antibiotics: vancomycin and Zosyn (07/27-07/30), cultures sensitive to Rocephin, started on 07/30 - WBC remain stable likely an inflammatory component on top of infection, vital signs remain stable Resolved. (2) Cholangitis: Code(s): K83.09 - Other cholangitis Status: Acute Assessment and Plan: 07/03/2023: recent laparoscopic cholecystectomy 07/07: ERCP o for postop bile leak with stent placement 07/27: Patient presented with pneumobilia on CT scan of the abdomen and pelvis along with fluid collection to the gallbladder fossa -CT abdomen and pelvis Impression: -New small amount of air peripherally in the upper right hepatic lobe, unclear whether this is pneumobilia versus parenchymal air. There is also suggestion of subtle ill-defined parenchymal hypodensity surrounding the air in this region. Infective cholangitis/hepatitis is a consideration in this region. -Decreasing fluid collection to gallbladder fossa, now measuring 1.6 cm in diameter. -Common bile duct and main pancreatic stents in place. -Trace pelvic ascites, likely related to CAN LABELER shunt. GI has evaluated the patient,s/p ERCP with stent removal on 07/30/2023. No bile leak noted. -surgery also following the patient, no surgical intervention required at this time -continue antibiotics as above 08/01: Patient endorsing worsening abdominal pain with bloating on exam. WBC stable. Afebrile. Vitals WNL. - CT abdomen and pelvis Impressions: - 2 persistent areas of focal, parenchymal air-fluid collections towards the dome of the liver, similar to prior exam. Focal hepatic abscesses are suspected, versus possibly other postprocedural or iatrogenic change. - Spoke with radiologist who states that the abscess is too small to drain. Discussed this with surgery who states transfer is not required at this time. Patient will likely require a longer course of IV antibiotics. Will discuss this with ID pharmacy in the am. 08/02: Patient started on IV levaquin and flagyl PO. WBC remains elevated but stable, likely an inflammatory component. Afebrile. LFTs WNL. 08/04: Patient remains on PO levaquin and flagyl. Discussed this with ID pharmacy. Per GI patient will likely need a repeat CT scan in 3-4 weeks to reevaluate abscess. 08/07/2023 continue p.o. Levaquin and Flagyl will need elongated course of 4-6 weeks for general surgery 08/08/2023: Continue PO Levaquin and Flagyl, end date noted on the antibiotic order (3) Type 2 diabetes mellitus: Qualifiers: Diabetes mellitus termination clerk insulin use: with nursing home use Diabetes mellitus complication status: with hyperglycemia Qualified Code(s): E11.65 - Type 2 diabetes mellitus with hyperglycemia; Z79.4 - [facility] (current) use of insulin Code(s): E11.9 - Type 2 diabetes mellitus without complications Status: Acute Assessment and Plan: - hypoglycemia protocol - POC blood glucose ACHS - home medication - tresibar 26 units daily, novolog 5 units PRN, metformin 500 mg daily, linagliptin 5 mg daily, and jardiance 25 mg daily - correct regimen ordered - low dose TIDWM and HS - A1C 07/06/23: 6.1 - Current glucose stable at 159 (4) A-fib: Code(s): I48.91 - Unspecified atrial fibrillation Status: Acute Assessment and Plan: Patient on Eliquis and meto
[2023-08-09 14:00] VITALS: BP 134/66; PULSE 87; RESP 18; TEMP 37; O2SAT 97
[2023-08-09 16:35] LABS: Glucose Point of Care 154 mg/dl (65-105)
[2023-08-09 19:26] LABS: Glucose Point of Care 279 mg/dl (65-105)
[2023-08-09 20:00] VITALS: O2SAT 99
[2023-08-09 20:35] VITALS: PULSE 86
[2023-08-09] MEDS: MELATONIN 3 MG TABLET PO (20:35)
[2023-08-09 21:14] VITALS: BP 124/50; PULSE 101; RESP 18; TEMP 36.6; O2SAT 99
[2023-08-10] MEDS: HYDROcodone/acetaminophen (*CRX) 5-325 MG TABLET 1 TAB PO ×3 (04:40→20:27)
[2023-08-10 05:46] LABS: Basophils Absolute Auto 0.1 K/mm3 (0.0-0.1); Basophils Percent Auto 0.9 % (0.2-1.2); Eosinophils Absolute Auto 0.2 K/mm3 (0-0.3); Eosinophils Percent Auto 2.4 % (0-4.4); Hematocrit 28.3 % (37.0-47.0); Hemoglobin 8.3 g/dL (12.0-15.0); Immature Granulocyte Absolute 0.05 K/mm3 (0.00-0.031); Immature Granulocyte Percent A 0.5 % (0-0.5); Lymphocytes Absolute Auto 2.32 K/mm3 (0.9-3.2); Lymphocytes Percent Auto 23.4 % (18.3-44.2); Mean Corpuscular HGB Conc 29.3 g/dl (32-36); Mean Corpuscular Hemoglobin 26.3 pg (26-34); Mean Corpuscular Volume 89.6 fl (80-100); Mean Platelet Volume 9.7 fl (7.4-10.4); Neutrophils Absolute Auto 6.2 K/mm3 (1.3-6.7); Neutrophils Percent Auto 62.8 % (45.5-73.1); Platelet Count Result 404 k/mm3 (150-375); Red Blood Count 3.16 M/mm3 (4.2-5.4); White Blood Count 9.9 K/mm3 (4.5-10.0)
[2023-08-10 05:57] LABS: Alanine Aminotransferase 7 U/L (6-35); Alkaline Phosphatase 83 U/L (38-126); Anion Gap 8 mmol/L (4-12); Aspartate Amino Transferase 13 U/L (14-36); Bilirubin,Total 0.4 mg/dL (0.2-1.3); Blood Urea Nitrogen 9 mg/dL (7-17); Carbon Dioxide 24 mmol/L (22-30); Chloride 107 mmol/L (98-107); Estimated CRCL calculation 67 ml/min; Estimated Glomerular Filt Rate > 60; Glucose 207 mg/dL (65-110); Magnesium 1.7 mg/dL (1.6-2.3); Potassium 3.5 mmol/L (3.4-5.0); Sodium 139 mmol/L (137-145)
[2023-08-10 05:59] VITALS: BP 143/70; PULSE 73; RESP 18; TEMP 36.6; O2SAT 99
[2023-08-10] MEDS: metroNIDAZOLE 500 MG TABLET PO ×3 (06:27→20:27)
[2023-08-10 06:32] LABS: Anisocytosis 1+; Hypochromasia 1+; Platelet Estimate Slightly Increased (Adequate); Schistocytes None Seen
[2023-08-10 07:43] LABS: Glucose Point of Care 219 mg/dl (65-105)
[2023-08-10 08:00] VITALS: PULSE 73; RESP 18; O2SAT 99
--- NOTE | 2023-08-10 08:19 | PM.IMPN ---
Progress Note: A&P Assessment and Plan (1) Septic shock: Code(s): A41.9 - Sepsis, unspecified organism; R65.21 - Severe sepsis with septic shock Status: Resolved Assessment and Plan: Septic shock likely related to cholangitis, 07/27: Patient presented with nausea, vomiting, fevers, chills, was found to be hypotensive in the ER despite IV fluids per sepsis protocol. PICC line placed in the ER and patient was started on norepinephrine, no longer requiring norepinephrine. BP remains stable. - Lactic acid within normal - Blood cultures drawn on 07/27: Group B strep and klebsiella pneumoniae - Blood cultures redraw on 07/30: final, no growth -Antibiotics: vancomycin and Zosyn (07/27-07/30); cultures sensitive to Rocephin, started on 07/30; per general surgery abx downgraded to Levaquin and Flagyl for 4-6 weeks, started 08/01 Resolved. (2) Cholangitis: Code(s): K83.09 - Other cholangitis Status: Acute Assessment and Plan: Patient recently admitted on 07/08/2023 through 07/19/2023 and acute cholecystitis requiring laparoscopic cholecystectomy with postop complications resulting in a bile leak requiring sphincterotomy and papillotomy on 07/07 as well as a surgical exploration on 07/09 with removal of approximately 500 mL of bile. She was sent home with expectation to repeat ERCP in 2 months for a stent removal. Patient was readmitted on 07/28/2023 septic shock secondary to acute cholangitis. -CT abdomen and pelvis 07/27 Showing pneumobilia with possible cholangitis. -GI has evaluated the patient,s/p ERCP with stent removal on 07/30/2023. No bile leak noted. -surgery also following the patient, no surgical intervention required at this time - Blood cultures drawn on 07/27: Group B strep and klebsiella pneumoniae - Blood cultures redraw on 07/30: final, no growth -Antibiotics: vancomycin and Zosyn (07/27-07/30); cultures sensitive to Rocephin, started on 07/30; per general surgery abx downgraded to Levaquin and Flagyl for 4-6 weeks, started 08/01 -ID pharmacist involved in case -ERCP on 07/29 with biliary and pancreatic stent removal (stents placed on 07/07) -Repeat CT on 08/01 showing development of small right hepatic abscess, too small to drain, continuing antibiotics -PT and OT working with the patient. -Plan for SNF placement, waiting on insurance authorization (3) Type 2 diabetes mellitus: Qualifiers: Diabetes mellitus complication status: with hyperglycemia Diabetes mellitus change booth attendant insulin use: with change booth attendant use Qualified Code(s): E11.65 - Type 2 diabetes mellitus with hyperglycemia; Z79.4 - longterm (current) use of insulin Code(s): E11.9 - Type 2 diabetes mellitus without complications Status: Acute Assessment and Plan: - hypoglycemia protocol - POC blood glucose ACHS - home medication - tresibar 26 units daily, novolog 5 units PRN, metformin 500 mg daily, linagliptin 5 mg daily, and jardiance 25 mg daily - correct regimen ordered - low dose TIDWM and HS - A1C 07/06/23: 6.1 (4) A-fib: Code(s): I48.91 - Unspecified atrial fibrillation Status: Acute Assessment and Plan: Patient on Eliquis and metoprolol at home for AFib -HR stable, cardiology on board -Continue current therapy (5) (HFpEF) heart failure with preserved ejection fraction: Code(s): I50.30 - Unspecified diastolic (congestive) heart failure Status: Acute Assessment and Plan: - Symptoms: Bilateral lower extremity edema - BNP: 2460 - EKG: Sinus rhythm - Chest XR: Unremarkable - Echo 08/04: LVEF 55-60% with grade III diastolic dysfunction and mild pulmonary hypertension. Change from echo on 07/08: EF 60-65 with abnormal diastolic function (no grade noted) and no pulmonary hypertension. - cardiology following patient - Monitor vital signs, I&Os, BUN/creatinine, daily weights, neuro status and patient is a fall risk - Monitor serum electrolytes,
[2023-08-10] MEDS: APIXABAN 5 MG TABLET PO ×2 (08:46→20:27)
[2023-08-10] MEDS: INSULIN ASPART (*BKC) 100 UNITS/ML SUB-Q ×2 (08:46→12:29)
[2023-08-10] MEDS: SACCHAROMYCES BOULARDII 250 MG CAPSULE PO (08:46)
[2023-08-10] MEDS: levoFLOXacin 750 MG TABLET PO (08:46)
[2023-08-10] MEDS: METOPROLOL TARTRATE 25 MG TABLET PO ×2 (08:46→20:27)
[2023-08-10] MEDS: GABAPENTIN 300 MG CAPSULE PO ×2 (08:46→18:07)
[2023-08-10] MEDS: ACETAMINOPHEN 325 MG TABLET 650 MG PO (08:51)
[2023-08-10] MEDS: MAGNESIUM OXIDE 200 MG TABLET PO ×2 (08:54→20:27)
[2023-08-10 11:33] LABS: Glucose Point of Care 220 mg/dl (65-105)
[2023-08-10 14:00] VITALS: BP 128/63; PULSE 78; RESP 14; TEMP 36.4; O2SAT 100
[2023-08-10 16:53] LABS: Glucose Point of Care 194 mg/dl (65-105)
[2023-08-10 20:00] VITALS: PULSE 77; RESP 16; O2SAT 99
[2023-08-10] MEDS: diphenhydrAMINE HCl CAP 25 MG CAPSULE PO (20:26)
[2023-08-10 20:27] VITALS: PULSE 78
[2023-08-10] MEDS: traZODone HCL 50 MG TABLET PO (20:27)
[2023-08-10] MEDS: rOPINIRole HCL 0.25 MG TABLET PO (20:27)
[2023-08-10] MEDS: MELATONIN 3 MG TABLET PO (20:27)
[2023-08-10 20:37] LABS: Glucose Point of Care 280 mg/dl (65-105)
[2023-08-10 21:26] VITALS: BP 128/58; PULSE 77; RESP 16; TEMP 36.5; O2SAT 99
[2023-08-11] MEDS: HYDROcodone/acetaminophen (*CRX) 5-325 MG TABLET 1 TAB PO ×4 (01:18→21:30)
[2023-08-11] MEDS: metroNIDAZOLE 500 MG TABLET PO ×3 (05:29→21:42)
[2023-08-11 05:58] LABS: Hematocrit 27.2 % (37.0-47.0); Hemoglobin 8.3 g/dL (12.0-15.0); Mean Corpuscular HGB Conc 30.5 g/dl (32-36); Mean Corpuscular Hemoglobin 26.3 pg (26-34); Mean Corpuscular Volume 86.1 fl (80-100); Mean Platelet Volume 9.8 fl (7.4-10.4); Platelet Count Result 378 k/mm3 (150-375); Red Blood Count 3.16 M/mm3 (4.2-5.4); White Blood Count 8.8 K/mm3 (4.5-10.0)
[2023-08-11 06:00] VITALS: BP 139/72; PULSE 74; RESP 16; TEMP 36.4; O2SAT 98
[2023-08-11 06:11] LABS: Anion Gap 5 mmol/L (4-12); Blood Urea Nitrogen 8 mg/dL (7-17); Calcium 8.1 mg/dL (8.4-10.2); Carbon Dioxide 26 mmol/L (22-30); Chloride 107 mmol/L (98-107); Estimated CRCL calculation 57 ml/min; Estimated Glomerular Filt Rate > 60; Glucose 227 mg/dL (65-110); Potassium 3.3 mmol/L (3.4-5.0); Sodium 138 mmol/L (137-145)
[2023-08-11 07:51] LABS: Glucose Point of Care 234 mg/dl (65-105)
[2023-08-11 08:18] VITALS: PULSE 73
[2023-08-11] MEDS: levoFLOXacin 750 MG TABLET PO (08:18)
[2023-08-11] MEDS: SACCHAROMYCES BOULARDII 250 MG CAPSULE PO (08:18)
[2023-08-11] MEDS: METOPROLOL TARTRATE 25 MG TABLET PO ×2 (08:18→21:42)
[2023-08-11] MEDS: MAGNESIUM OXIDE 200 MG TABLET PO ×2 (08:18→21:42)
[2023-08-11] MEDS: GABAPENTIN 300 MG CAPSULE PO ×2 (08:18→17:29)
[2023-08-11] MEDS: INSULIN ASPART (*BKC) 100 UNITS/ML SUB-Q ×3 (08:19→17:29)
[2023-08-11] MEDS: APIXABAN 5 MG TABLET PO ×2 (08:19→21:42)
[2023-08-11] MEDS: busPIRone HCL 5 MG TABLET PO ×2 (08:21→17:28)
[2023-08-11 11:09] LABS: Glucose Point of Care 266 mg/dl (65-105)
[2023-08-11 14:00] VITALS: BP 123/54; PULSE 85; RESP 20; TEMP 36.5; O2SAT 97
--- NOTE | 2023-08-11 14:35 | PM.IMPN ---
Progress Note: A&P Assessment and Plan (1) Septic shock: Code(s): A41.9 - Sepsis, unspecified organism; R65.21 - Severe sepsis with septic shock Status: Resolved Assessment and Plan: Septic shock likely related to cholangitis, 07/27: Patient presented with nausea, vomiting, fevers, chills, was found to be hypotensive in the ER despite IV fluids per sepsis protocol. PICC line placed in the ER and patient was started on norepinephrine, no longer requiring norepinephrine. BP remains stable. - Lactic acid within normal - Blood cultures drawn on 07/27: Group B strep and klebsiella pneumoniae - Blood cultures redraw on 07/30: final, no growth -Antibiotics: vancomycin and Zosyn (07/27-07/30); cultures sensitive to Rocephin, started on 07/30; per general surgery abx downgraded to Levaquin and Flagyl for 4-6 weeks, started 08/01 Resolved. (2) Cholangitis: Code(s): K83.09 - Other cholangitis Status: Acute Assessment and Plan: Patient recently admitted on 07/08/2023 through 07/19/2023 and acute cholecystitis requiring laparoscopic cholecystectomy with postop complications resulting in a bile leak requiring sphincterotomy and papillotomy on 07/07 as well as a surgical exploration on 07/09 with removal of approximately 500 mL of bile. She was sent home with expectation to repeat ERCP in 2 months for a stent removal. Patient was readmitted on 07/28/2023 septic shock secondary to acute cholangitis. -CT abdomen and pelvis 07/27 Showing pneumobilia with possible cholangitis. -GI has evaluated the patient,s/p ERCP with stent removal on 07/30/2023. No bile leak noted. -surgery also following the patient, no surgical intervention required at this time - Blood cultures drawn on 07/27: Group B strep and klebsiella pneumoniae - Blood cultures redraw on 07/30: final, no growth -Antibiotics: vancomycin and Zosyn (07/27-07/30); cultures sensitive to Rocephin, started on 07/30; per general surgery abx downgraded to Levaquin and Flagyl for 4-6 weeks, started 08/01 -ID pharmacist involved in case -ERCP on 07/29 with biliary and pancreatic stent removal (stents placed on 07/07) -Repeat CT on 08/01 showing development of small right hepatic abscess, too small to drain, continuing antibiotics -PT and OT working with the patient. 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 Diabetes mellitus complication status: with hyperglycemia Qualified Code(s): E11.65 - Type 2 diabetes mellitus with hyperglycemia; Z79.4 - skilled nursing (current) use of insulin Code(s): E11.9 - Type 2 diabetes mellitus without complications Status: Acute Assessment and Plan: - hypoglycemia protocol - POC blood glucose ACHS - home medication - tresibar 26 units daily, novolog 5 units PRN, metformin 500 mg daily, linagliptin 5 mg daily, and jardiance 25 mg daily - correct regimen ordered - low dose TIDWM and HS - A1C 07/06/23: 6.1 (4) A-fib: Code(s): I48.91 - Unspecified atrial fibrillation Status: Acute Assessment and Plan: Patient on Eliquis and metoprolol at home for AFib -HR stable, cardiology on board -Continue current therapy (5) (HFpEF) heart failure with preserved ejection fraction: Code(s): I50.30 - Unspecified diastolic (congestive) heart failure Status: Acute Assessment and Plan: - Symptoms: Bilateral lower extremity edema - BNP: 2460 - EKG: Sinus rhythm - Chest XR: Unremarkable - Echo 08/04: LVEF 55-60% with grade III diastolic dysfunction and mild pulmonary hypertension. Change from echo on 07/08: EF 60-65 with abnormal diastolic function (no grade noted) and no pulmonary hypertension. - cardiology following patient - Monitor vital signs, I&Os, BUN/creatinine, daily weights, neuro status and patient is a fall risk - Monitor serum electrolytes,
[2023-08-11 16:26] LABS: Glucose Point of Care 253 mg/dl (65-105)
[2023-08-11] MEDS: INSULIN GLARGINE (*BKC) 100 UNITS/ML 26 UNITS SUB-Q (17:36)
[2023-08-11 19:26] VITALS: PULSE 85; RESP 20; O2SAT 97
[2023-08-11 20:40] LABS: Glucose Point of Care 211 mg/dl (65-105)
[2023-08-11 20:56] VITALS: BP 125/56; PULSE 75; RESP 16; TEMP 36.6; O2SAT 97
[2023-08-11] MEDS: MELATONIN 3 MG TABLET PO (21:41)
[2023-08-11 21:42] VITALS: PULSE 66
[2023-08-11] MEDS: SIMVASTATIN 20 MG TABLET 40 MG PO (21:42)
[2023-08-11] MEDS: traZODone HCL 50 MG TABLET PO (21:42)
[2023-08-11] MEDS: ESCITALOPRAM OXALATE 10 MG TABLET 20 MG PO (21:42)
[2023-08-11] MEDS: rOPINIRole HCL 0.25 MG TABLET PO (21:42)
[2023-08-11] MEDS: diphenhydrAMINE HCl CAP 25 MG CAPSULE PO (21:42)
[2023-08-12] MEDS: HYDROcodone/acetaminophen (*CRX) 5-325 MG TABLET 1 TAB PO ×3 (01:10→16:39)
[2023-08-12] MEDS: metroNIDAZOLE 500 MG TABLET PO ×3 (05:08→20:26)
[2023-08-12 05:37] VITALS: BP 132/56; PULSE 66; RESP 16; TEMP 36.6; O2SAT 93
[2023-08-12 06:38] LABS: Hematocrit 27.8 % (37.0-47.0); Hemoglobin 8.3 g/dL (12.0-15.0); Mean Corpuscular HGB Conc 29.9 g/dl (32-36); Mean Corpuscular Hemoglobin 25.5 pg (26-34); Mean Corpuscular Volume 85.5 fl (80-100); Mean Platelet Volume 10.1 fl (7.4-10.4); Platelet Count Result 398 k/mm3 (150-375); Red Blood Count 3.25 M/mm3 (4.2-5.4); Red Cell Distribution Width 16.9 % (11.5-14.5); White Blood Count 8.2 K/mm3 (4.5-10.0)
[2023-08-12 06:42] LABS: Anion Gap 4 mmol/L (4-12); Blood Urea Nitrogen 9 mg/dL (7-17); Calcium 8.3 mg/dL (8.4-10.2); Carbon Dioxide 27 mmol/L (22-30); Chloride 108 mmol/L (98-107); Estimated CRCL calculation 66 ml/min; Estimated Glomerular Filt Rate > 60; Glucose 118 mg/dL (65-110); Potassium 3.4 mmol/L (3.4-5.0); Sodium 139 mmol/L (137-145)
[2023-08-12 07:21] LABS: Glucose Point of Care 119 mg/dl (65-105)
[2023-08-12] MEDS: GABAPENTIN 300 MG CAPSULE PO ×2 (08:24→16:31)
[2023-08-12] MEDS: busPIRone HCL 5 MG TABLET PO ×2 (08:24→16:31)
[2023-08-12] MEDS: levoFLOXacin 750 MG TABLET PO (08:25)
[2023-08-12] MEDS: APIXABAN 5 MG TABLET PO ×2 (08:25→20:27)
[2023-08-12] MEDS: METOPROLOL TARTRATE 25 MG TABLET PO ×2 (08:25→20:28)
[2023-08-12] MEDS: MAGNESIUM OXIDE 200 MG TABLET PO ×2 (08:25→20:26)
[2023-08-12] MEDS: SACCHAROMYCES BOULARDII 250 MG CAPSULE PO (08:25)
[2023-08-12 11:23] LABS: Glucose Point of Care 226 mg/dl (65-105)
[2023-08-12] MEDS: INSULIN ASPART (*BKC) 100 UNITS/ML SUB-Q ×2 (11:40→16:31)
--- NOTE | 2023-08-12 12:23 | PM.IMPN ---
Progress Note: A&P Assessment and Plan (1) Septic shock: Code(s): A41.9 - Sepsis, unspecified organism; R65.21 - Severe sepsis with septic shock Status: Resolved Assessment and Plan: Septic shock likely related to cholangitis, 07/27: Patient presented with nausea, vomiting, fevers, chills, was found to be hypotensive in the ER despite IV fluids per sepsis protocol. PICC line placed in the ER and patient was started on norepinephrine, no longer requiring norepinephrine. BP remains stable. - Lactic acid within normal - Blood cultures drawn on 07/27: Group B strep and klebsiella pneumoniae - Blood cultures redraw on 07/30: final, no growth -Antibiotics: vancomycin and Zosyn (07/27-07/30); cultures sensitive to Rocephin, started on 07/30; per general surgery abx downgraded to Levaquin and Flagyl for 4-6 weeks, started 08/01 Resolved. (2) Cholangitis: Code(s): K83.09 - Other cholangitis Status: Acute Assessment and Plan: Patient recently admitted on 07/08/2023 through 07/19/2023 and acute cholecystitis requiring laparoscopic cholecystectomy with postop complications resulting in a bile leak requiring sphincterotomy and papillotomy on 07/07 as well as a surgical exploration on 07/09 with removal of approximately 500 mL of bile. She was sent home with expectation to repeat ERCP in 2 months for a stent removal. Patient was readmitted on 07/28/2023 septic shock secondary to acute cholangitis. -CT abdomen and pelvis 07/27 Showing pneumobilia with possible cholangitis. -GI has evaluated the patient,s/p ERCP with stent removal on 07/30/2023. No bile leak noted. -surgery also following the patient, no surgical intervention required at this time - Blood cultures drawn on 07/27: Group B strep and klebsiella pneumoniae - Blood cultures redraw on 07/30: final, no growth -Antibiotics: vancomycin and Zosyn (07/27-07/30); cultures sensitive to Rocephin, started on 07/30; per general surgery abx downgraded to Levaquin and Flagyl for 4-6 weeks, started 08/01 -ID pharmacist involved in case -ERCP on 07/29 with biliary and pancreatic stent removal (stents placed on 07/07) -Repeat CT on 08/01 showing development of small right hepatic abscess, too small to drain, continuing antibiotics -PT and OT working with the patient. 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 Diabetes mellitus complication status: with hyperglycemia Qualified Code(s): E11.65 - Type 2 diabetes mellitus with hyperglycemia; Z79.4 - [facility] (current) use of insulin Code(s): E11.9 - Type 2 diabetes mellitus without complications Status: Acute Assessment and Plan: - hypoglycemia protocol - POC blood glucose ACHS - home medication - tresibar 26 units daily, novolog 5 units PRN, metformin 500 mg daily, linagliptin 5 mg daily, and jardiance 25 mg daily - correct regimen ordered - low dose TIDWM and HS - A1C 07/06/23: 6.1 (4) A-fib: Code(s): I48.91 - Unspecified atrial fibrillation Status: Acute Assessment and Plan: Patient on Eliquis and metoprolol at home for AFib -HR stable, cardiology on board -Continue current therapy (5) (HFpEF) heart failure with preserved ejection fraction: Code(s): I50.30 - Unspecified diastolic (congestive) heart failure Status: Acute Assessment and Plan: - Symptoms: Bilateral lower extremity edema - BNP: 2460 - EKG: Sinus rhythm - Chest XR: Unremarkable - Echo 08/04: LVEF 55-60% with grade III diastolic dysfunction and mild pulmonary hypertension. Change from echo on 07/08: EF 60-65 with abnormal diastolic function (no grade noted) and no pulmonary hypertension. - cardiology following patient - Monitor vital signs, I&Os, BUN/creatinine, daily weights, neuro status and patient is a fall risk - Monitor serum electrolyt
[2023-08-12 14:00] VITALS: BP 123/59; PULSE 74; RESP 16; TEMP 36.4; O2SAT 97
[2023-08-12 16:24] LABS: Glucose Point of Care 204 mg/dl (65-105)
[2023-08-12] MEDS: INSULIN GLARGINE (*BKC) 100 UNITS/ML 26 UNITS SUB-Q (16:32)
[2023-08-12] MEDS: ONDANSETRON HCL ODT 4 MG TABLET PO (16:39)
[2023-08-12] MEDS: BISACODYL 10 MG SUPPOSITORY RECTAL (19:58)
[2023-08-12 20:00] VITALS: PULSE 69; RESP 20; O2SAT 98
[2023-08-12 20:10] VITALS: BP 138/74; PULSE 69; RESP 20; TEMP 36.2; O2SAT 98
[2023-08-12] MEDS: SIMVASTATIN 20 MG TABLET 40 MG PO (20:26)
[2023-08-12] MEDS: MELATONIN 3 MG TABLET PO (20:26)
[2023-08-12 20:28] VITALS: PULSE 69
[2023-08-12] MEDS: ESCITALOPRAM OXALATE 10 MG TABLET 20 MG PO (20:29)
[2023-08-12 20:44] LABS: Glucose Point of Care 170 mg/dl (65-105)
[2023-08-13 05:00] VITALS: BP 125/68; PULSE 72; RESP 16; TEMP 36.5; O2SAT 98
[2023-08-13] MEDS: metroNIDAZOLE 500 MG TABLET PO (05:32)
[2023-08-13 07:42] LABS: Glucose Point of Care 116 mg/dl (65-105)
[2023-08-13 08:58] VITALS: PULSE 99
[2023-08-13] MEDS: APIXABAN 5 MG TABLET PO (08:58)
[2023-08-13] MEDS: MAGNESIUM OXIDE 200 MG TABLET PO (08:58)
[2023-08-13] MEDS: METOPROLOL TARTRATE 25 MG TABLET PO (08:58)
[2023-08-13] MEDS: levoFLOXacin 750 MG TABLET PO (08:58)
[2023-08-13] MEDS: SACCHAROMYCES BOULARDII 250 MG CAPSULE PO (08:58)
[2023-08-13] MEDS: GABAPENTIN 300 MG CAPSULE PO (08:58)
[2023-08-13] MEDS: busPIRone HCL 5 MG TABLET PO (08:58)
--- NOTE | 2023-08-13 09:33 | PM.DS ---
DS: Admitting Diagnosis Discharge Date 08/13/2023 Admitting Diagnosis Septic shock/cholangitis DS: Discharge Diagnosis Discharge Diagnosis (1) Septic shock: Code(s): A41.9 - Sepsis, unspecified organism; R65.21 - Severe sepsis with septic shock Status: Resolved Assessment and Plan: Septic shock likely related to cholangitis, 07/27: Patient presented with nausea, vomiting, fevers, chills, was found to be hypotensive in the ER despite IV fluids per sepsis protocol. PICC line placed in the ER and patient was started on norepinephrine, no longer requiring norepinephrine. BP remains stable. - Lactic acid within normal - Blood cultures drawn on 07/27: Group B strep and klebsiella pneumoniae - Blood cultures redraw on 07/30: final, no growth -Antibiotics: vancomycin and Zosyn (07/27-07/30); cultures sensitive to Rocephin, started on 07/30; per general surgery abx downgraded to Levaquin and Flagyl for 4-6 weeks, started 08/01 Resolved. (2) Cholangitis: Code(s): K83.09 - Other cholangitis Status: Acute Assessment and Plan: Patient recently admitted on 07/08/2023 through 07/19/2023 and acute cholecystitis requiring laparoscopic cholecystectomy with postop complications resulting in a bile leak requiring sphincterotomy and papillotomy on 07/07 as well as a surgical exploration on 07/09 with removal of approximately 500 mL of bile. She was sent home with expectation to repeat ERCP in 2 months for a stent removal. Patient was readmitted on 07/28/2023 septic shock secondary to acute cholangitis. -CT abdomen and pelvis 07/27 Showing pneumobilia with possible cholangitis. -GI has evaluated the patient,s/p ERCP with stent removal on 07/30/2023. No bile leak noted. -surgery also following the patient, no surgical intervention required at this time - Blood cultures drawn on 07/27: Group B strep and klebsiella pneumoniae - Blood cultures redraw on 07/30: final, no growth -Antibiotics: vancomycin and Zosyn (07/27-07/30); cultures sensitive to Rocephin, started on 07/30; per general surgery abx downgraded to Levaquin and Flagyl for 4-6 weeks, started 08/01 -ID pharmacist involved in case -ERCP on 07/29 with biliary and pancreatic stent removal (stents placed on 07/07) -Repeat CT on 08/01 showing development of small right hepatic abscess, too small to drain, continuing antibiotics -PT and OT working with the patient. -Plan for SNF placement, waiting on insurance authorization (3) Type 2 diabetes mellitus: Qualifiers: Diabetes mellitus complication status: with hyperglycemia Diabetes mellitus group home insulin use: with group home use Qualified Code(s): E11.65 - Type 2 diabetes mellitus with hyperglycemia; Z79.4 - residential (current) use of insulin Code(s): E11.9 - Type 2 diabetes mellitus without complications Status: Acute Assessment and Plan: - hypoglycemia protocol - POC blood glucose ACHS - home medication - tresibar 26 units daily, novolog 5 units PRN, metformin 500 mg daily, linagliptin 5 mg daily, and jardiance 25 mg daily - correct regimen ordered - low dose TIDWM and HS - A1C 07/06/23: 6.1 (4) A-fib: Code(s): I48.91 - Unspecified atrial fibrillation Status: Acute Assessment and Plan: Patient on Eliquis and metoprolol at home for AFib -HR stable, cardiology on board -Continue current therapy (5) (HFpEF) heart failure with preserved ejection fraction: Code(s): I50.30 - Unspecified diastolic (congestive) heart failure Status: Acute Assessment and Plan: - Symptoms: Bilateral lower extremity edema - BNP: 2460 - EKG: Sinus rhythm - Chest XR: Unremarkable - Echo 08/04: LVEF 55-60% with grade III diastolic dysfunction and mild pulmonary hypertension. Change from echo on 07/08: EF 60-65 with abnormal diastolic function (no grade noted) and no pulmonary hypertension. - cardiology following patient - Monitor vital s
[2023-08-13 11:15] LABS: SARS-CoV-2 RNA PCR Negative (Negative)
== END 2023-08-13 11:35 | DRG 862 ==
LOC: ANHED 20:25 → ANHICU 21:51 → ANH3MEDSUR 07-30 18:08
PROVIDERS: Internal Medicine; Internal Medicine Critical Care Medicine; Internal Medicine Gastroenterology; Nurse Practitioner; Student in an Organized Health Care Education/Training Program; Admitting Provider Family Medicine; Emergency Provider Emergency Medicine; PCP Clinical Nurse Specialist; Visit Provider Nurse Practitioner Family
PROC: 0FPB8DZ Removal of Intraluminal Device from Hepatobiliary Duct, Via Natural or Artificial Opening Endoscopic (ICD-10-PCS; CPT 43260; principal; 2023-07-30 11:30)
DX: T81.43XA Infection following a procedure, organ and space surgical site, initial encounter (principal); A40.1 Sepsis due to streptococcus, group B; I50.33 Acute on chronic diastolic (congestive) heart failure; K75.0 Abscess of liver; R65.21 Severe sepsis with septic shock; I48.20 Chronic atrial fibrillation, unspecified; T81.44XA Sepsis following a procedure, initial encounter; I11.0 Hypertensive heart disease with heart failure; I95.9 Hypotension, unspecified; D63.8 Anemia in other chronic diseases classified elsewhere; E11.9 Type 2 diabetes mellitus without complications; E11.40 Type 2 diabetes mellitus with diabetic neuropathy, unspecified; E78.5 Hyperlipidemia, unspecified; E66.9 Obesity, unspecified; R14.0 Abdominal distension (gaseous); J45.909 Unspecified asthma, uncomplicated; K83.8 Other specified diseases of biliary tract; K58.9 Irritable bowel syndrome, unspecified; M85.80 Other specified disorders of bone density and structure, unspecified site; M19.90 Unspecified osteoarthritis, unspecified site; G43.909 Migraine, unspecified, not intractable, without status migrainosus; F32.A Depression, unspecified; F41.9 Anxiety disorder, unspecified; Z20.822 Contact with and (suspected) exposure to COVID-19; Z11.52 Encounter for screening for COVID-19; Z79.01 Long term (current) use of anticoagulants; Z79.4 Long term (current) use of insulin; Z86.718 Personal history of other venous thrombosis and embolism; Z86.73 Personal history of transient ischemic attack (TIA), and cerebral infarction without residual deficits; Z98.2 Presence of cerebrospinal fluid drainage device; Z87.891 Personal history of nicotine dependence; Z90.49 Acquired absence of other specified parts of digestive tract
CPT/HCPCS: 36415; 71045; 71260; 74018; 74177; 74329; 76705; 80048; 80053; 80202; 81001; 82948; 83540; 83550; 83605; 83690; 83735; 84100; 84443; 85014; 85018; 85025; 85027; 85610; 85730; 87040; 87077; 87181; 87186; 87635; 87637; 87641; 93005; 93306; 97110; 97116; 97161; 97165; 97530; 97535; 99285; A9270; C1751; J0330; J0696; J1100; J1170; J1200; J1644; J1815; J1940; J1956; J2405; J2543; J2704; J2765; J3030; J3370; J3475; J3480; J7030; J7120; Q9966; Q9967

== ENCOUNTER 2023-09-02 16:31 | Outpatient (CLI) | payer MEDICARE, SELFPAY ==
--- NOTE | ~2023-09-02 | CT_ITS ---
CT of the Abdomen and Pelvis: Indication: Hepatic abscess Technique: 2.5 mm axial scans were obtained through the abdomen and pelvis following intravenous adm inistration of 100 cc of Omnipaque 350. Dose reduction technique was used on this scan by utilizing a utomated exposure control and iterative reconstruction technique. The dose-length product (DLP) was 7 43.10 mGy-cm. COMPARISON: 08/02/2023 Findings: Scans through the lung bases are unremarkable. Small amount of pneumobilia noted. The liver, spleen, pancreas, adrenals and kidneys are otherwise wi thin normal limits. Cholecystectomy clips are present. No evidence of aortic aneurysm. No lymphadeno john. No bowel obstruction or bowel wall thickening. There is a prominent diverticulum of the distal duoden um/proximal jejunum. There is no evidence to suggest acute appendicitis. ENDOSCOPY REGISTERED NURSE shunt present. Images through the pelvis were performed. Urinary bladder unremarkable. No pelvic mass seen. No ascit es. Status post hysterectomy. Impression: Previously noted small hepatic abscesses are essentially completely resolved. No significant hepatic abnormality seen currently. Reviewed, dictated and finalized at location M. Impression: Previously noted small hepatic abscesses are essentially completely resolved. N o significant hepatic abnormality seen currently.
== END 2023-09-02 16:32 | disposition home or self-care (01) ==
LOC: ANHIMG 16:33
PROVIDERS: PCP Clinical Nurse Specialist; Visit Provider Surgery
DX: K75.0 Abscess of liver (principal)
CPT/HCPCS: 74177; Q9967

== ENCOUNTER 2023-09-05 13:57 | Outpatient (CLI) | payer MEDICARE, SELFPAY ==
--- NOTE | ~2023-09-05 | DEXA_ITS ---
Bone Density Report Name: ANNEMARIE MANZANO Age: 73 Sex: Female Ethnicity: White Date of : 1950 Indication: osteopenia; history of glucocorticoids; asthma or emphysema; hysterectomy; Referring Provider: SKY CORRAL Study: Bone densitometry was performed. Exam Date: September 05, 2023 Accession number: [id number] Bone Density: Region BMD T-score Z-score Classification AP Spine(L1, L3) 1.192 1.6 3.8 Normal Femoral Neck (Left) 0.841 -0.1 1.8 Normal Total Hip (Left) 0.934 -0.1 1.5 Normal Femoral Neck (Right) 0.626 -2.0 -0.1 Osteopenia Total Hip (Right) 0.848 -0.8 0.8 Normal Total Hip Mean 0.891 -0.5 1.2 Normal World Health Organization criteria for BMD impression classify patients as: Normal (T-score at or above -1.0), Osteopenia (T-score between -1.0 and -2.5), or Osteoporosis (T-score at or below -2.5). 10-year Fracture Risk(1): Major Osteoporotic Fracture 18% Hip Fracture 4.2% Reported Risk Factors: [place] (), Neck BMD=0.626, BMI=27.6, glucocorticoids (1) FRAX(R) Version 3.08. Fracture probability calculated for an untreated patient. Fracture probability may be lower if the patient has received treatment. Previous Exams: Region Exam Age BMD T-score BMD Change BMD Change Date g/cm2 vs Baseline vs Previous AP Spine (L1,L3) 09/05/2023 73 1.192 1.6 0.062 (5.5%)* 0.062 (5.5%)* 06/02/2021 71 1.130 1.1 Total Hip(Left) 09/05/2023 73 0.934 -0.1 0.168 (22.0%)* 0.168 (22.0%)* 06/02/2021 71 0.766 -1.4 Total Hip(Right) 09/05/2023 73 0.848 -0.8 0.040 (4.9%)* 0.040 (4.9%)* 06/02/2021 71 0.809 -1.1 *Denotes significance at 95% confidence level, LSC for AP Spine = 0.022 g/cm2, LSC for Total Hip = 0.027 g/cm2 Clinical Information Provided by Patient: Has taken Glucocorticoids Has used the following medications: Vitamin D Has the following medical conditions: Asthma or Emphysema, Hysterectomy Patient maximum height was 66.0 Menopause Age: 33 Drinks caffeinated beverages Onset of menses at age 13 Number of children 1 Impression: The patient has low bone mass, based on the Right Femoral Neck T-score. The patient has an estimated ten-year risk of hip fracture of 4.2% and an estimated ten-year risk of major fracture of 18%, based on the WHO FRAX algorithm. The patient has risk factors, including: history of glucocorticoid therapy. No significant bone loss was observed. Discussio
== END 2023-09-05 13:58 | disposition home or self-care (01) ==
LOC: ANHIMG 13:58
PROVIDERS: PCP Clinical Nurse Specialist; Visit Provider Nurse Practitioner Family
DX: Z78.0 Asymptomatic menopausal state (principal); M85.851 Other specified disorders of bone density and structure, right thigh
CPT/HCPCS: 77080

== ENCOUNTER 2023-09-16 11:41 | Outpatient (CLI) | payer MEDICARE, SELFPAY ==
--- NOTE | ~2023-09-16 | XR_ITS ---
XR shoulder LT min 2V Ordering provider: SUSANA Ochoa History: . no injury left shoulder pain with limited rom for months . Comparison: April 15, 2019 FINDINGS: BONES: No acute fracture or dislocation. Degenerative changes in the area of the greater tuberosity. JOINT SPACES: The acromioclavicular joint is normal. The glenohumeral joint is normal. SOFT TISSUES: Normal. IMPRESSION: No acute osseous abnormality left shoulder. Reviewed, dictated and finalized at location A.
== END 2023-09-16 11:42 ==
PROVIDERS: PCP Clinical Nurse Specialist; Visit Provider Clinical Nurse Specialist
DX: M25.512 Pain in left shoulder (principal)
CPT/HCPCS: 73030

== ENCOUNTER 2023-09-23 15:24 | Outpatient (CLI) | payer MEDICARE, SELFPAY ==
[2023-09-23 16:13] LABS: Basophils Absolute Auto 0.1 K/mm3 (0.0-0.1); Basophils Percent Auto 0.7 % (0.2-1.2); Eosinophils Absolute Auto 0.3 K/mm3 (0-0.3); Eosinophils Percent Auto 3.7 % (0-4.4); Hematocrit 37.6 % (37.0-47.0); Hemoglobin 11.6 g/dL (12.0-15.0); Immature Granulocyte Absolute 0.03 K/mm3 (0.00-0.031); Immature Granulocyte Percent A 0.3 % (0-0.5); Lymphocytes Absolute Auto 2.12 K/mm3 (0.9-3.2); Lymphocytes Percent Auto 23.6 % (18.3-44.2); Mean Corpuscular HGB Conc 30.9 g/dl (32-36); Mean Corpuscular Hemoglobin 26.3 pg (26-34); Mean Corpuscular Volume 85.3 fl (80-100); Mean Platelet Volume 10.3 fl (7.4-10.4); Monocytes Absolute Auto 0.7 K/mm3 (0.1-0.6); Monocytes Percent Auto 7.5 % (2.6-8.5); Neutrophils Absolute Auto 5.8 K/mm3 (1.3-6.7); Neutrophils Percent Auto 64.2 % (45.5-73.1); Platelet Count Result 324 k/mm3 (150-375); Red Blood Count 4.41 M/mm3 (4.2-5.4); Red Cell Distribution Width 17.7 % (11.5-14.5)
[2023-09-23 16:22] LABS: Creatinine Urine 34.1 mg/dL
[2023-09-23 16:27] LABS: MALB Creatinine Ratio 22.6 mg/g (0-30); Microalbumin Urine Random 7.7 mg/L (0-16.7)
[2023-09-23 16:31] LABS: Alanine Aminotransferase 10 U/L (6-35); Albumin Level 3.5 g/dL (3.5-5.1); Alkaline Phosphatase 70 U/L (38-126); Anion Gap 6 mmol/L (4-12); Aspartate Amino Transferase 22 U/L (14-36); Bilirubin,Total 0.3 mg/dL (0.2-1.3); Blood Urea Nitrogen 14 mg/dL (7-17); Calcium 8.6 mg/dL (8.4-10.2); Carbon Dioxide 30 mmol/L (22-30); Chloride 102 mmol/L (98-107); Estimated Glomerular Filt Rate > 60; Glucose 146 mg/dL (65-110); Sodium 138 mmol/L (137-145)
[2023-09-23 16:39] LABS: Parathyroid Intact 108.8 pg/mL (7.5-53.5)
[2023-09-23 17:10] LABS: HDL Direct 70 mg/dL
[2023-09-23 17:15] LABS: Iron 27 ug/dL (37-170)
[2023-09-23 17:21] LABS: LDL Cholesterol Direct 69 mg/dL
[2023-09-23 17:24] LABS: Percent Iron Saturation 11 % (20-50)
[2023-09-23 17:36] LABS: Folic Acid 16.8 ng/mL (2.76->20)
[2023-09-26 10:12] LABS: Vitamin D 25 Hydroxy 19.4 ng/mL
== END 2023-09-23 15:25 | disposition home or self-care (01) ==
PROVIDERS: PCP Clinical Nurse Specialist; Visit Provider Internal Medicine Endocrinology, Diabetes & Metabolism
DX: D50.0 Iron deficiency anemia secondary to blood loss (chronic) (principal); D63.8 Anemia in other chronic diseases classified elsewhere; D72.829 Elevated white blood cell count, unspecified; I48.91 Unspecified atrial fibrillation; R74.8 Abnormal levels of other serum enzymes; E11.42 Type 2 diabetes mellitus with diabetic polyneuropathy; E78.5 Hyperlipidemia, unspecified; I10 Essential (primary) hypertension; R79.89 Other specified abnormal findings of blood chemistry; Z71.3 Dietary counseling and surveillance
CPT/HCPCS: 36415; 80053; 82043; 82306; 82607; 82728; 82746; 83540; 83550; 83718; 83721; 83970; 85025

== ENCOUNTER 2023-10-29 07:46 | Day surgery (SDC) | payer MEDICARE, SELFPAY ==
[2023-10-11 12:14] VITALS: BMI 29.3
--- NOTE | ~2023-10-29 | XR_ITS ---
EXAMINATION: XR fluoroscopy no charge DATE: 10/29/2023 8:50 CDT INDICATION: RIGHT SI JT INJ . TECHNIQUE: 4 fluoroscopic images and 3 cine clips of the right SI joint were obtained during right SI joint injection, performed by Shane Avila MD. I was not present during the procedure. Fluorosco py exposure time was 9.7 seconds. Air Kerma 16.26 mGy. COMPARISON: None FINDINGS/IMPRESSION: Fluoroscopic documentation of right SI joint injection. Please refer to the operative note for comple te procedural details . Reviewed, dictated and finalized at location K.
--- NOTE | 2023-10-29 06:24 | WPDHPUPDATE1 ---
History and Physical Update Update Date/Time: 10/29/23 06:24 History and Physical has been reviewed, including an updated exam of the patient. There are NO changes in the patient's condition. Risks, benefits, and alternatives have been discussed and questions answered. Patient agrees to proceed with procedure.
--- NOTE | 2023-10-29 06:25 | W.PM.PROC2 ---
Procedure Note - Detailed Date of Procedure 10/29/23 Pre-op Diagnosis Sacroiliitis Post-op Diagnosis Same Procedure Performed Right intra-articular Sacroiliac Joint Steroid Injection under Fluoroscopic Guidance and with Contrast Control. Surgeon Shane Avila MD Crimping Machine Operator None Anesthesia Local Description of Procedure INFORMED CONSENT: Risks, benefits and alternatives to the procedure were discussed in detail with the patient who expressed explicit understanding and consent to proceed. Patient was informed verbally and in written form regarding the risks associated with the procedure including the low risk of serious infection, bleeding/bruising, allergic reaction, nerve or organ injury, paralysis, procedural site pain or discomfort, worsening pain and/or mobility, failure to treat and/or disfigurement. The patient expressed explicit understanding and consent to proceed. All materials required for the procedure were available prior to procedure start. Site and side were marked prior to procedure and confirmed in the presence of the patient. PROCEDURE IN DETAIL: The patient was brought to the procedural suite and placed in the prone position. Patient was made comfortable with use of pillows under the head/chest, hips and ankles. Skin overlying the injection site on the affected side(s) was prepared broadly with ChloraPrep applicator and draped in a sterile manner. Aseptic technique was used throughout. The right SI joint was identified in the AP view and contralateral oblique angulation with caudal tilt was utilized to optimize visualization of the inferior and medial joint line representing the posterior portion of the joint. Local anesthesia was established by infiltration with approximately 5 mL of 2% lidocaine via a 1-1/2 inch 27-gauge needle. A 22-gauge 3.5 inch Quincke spinal needle was advanced until the needle entered the inferior third of the joint space approximately 1cm cephalad from its most inferior point. In the AP view, 0.5 mL of Omnipaque 300 contrast medium was injected after negative aspiration for CSF, blood or other bodily fluid, showing appropriate intra-articular spread of contrast without evidence of intravascular, perineural or intrathecal placement. A 1.5 mL solution containing 6 mg of betamethasone in 0.5% PF bupivacaine was injected after repeat negative aspiration. Appropriate spread of the injectate was confirmed with washout of previous injected contrast. No parasthesias were elicited. Needle was removed completely intact without difficulty. Images were saved and documented in the patient chart. Patient's skin was cleansed and sterile bandage applied. The patient tolerated the procedure well. The patient was transported to the recovery area in stable condition where they were observed for an appropriate amount of time prior to discharge, without evidence of complication. The patient was instructed to avoid excessive activity for the next 48 hours, including climbing and frequent use of stairs. Showers only for 48 hours. They were instructed not to drive or operate heavy machinery for 24 hours. They are to monitor for severe headaches, fevers, chills, night sweats, erythema/swelling at the site or any other signs of infection, bleeding/bruising, bowel or bladder changes as well as new pain, weakness or numbness in the upper or lower extremity. Should they notice these changes, they are instructed to call our office immediately or report directly to the nearest Emergency Department if no answer or if after posted office hours. COMPLICATIONS: None COMMENTS: None CONTRAST WASTED: 29.5mL Omnipaque 300. Complications No immediate complications Condition Stable Disposition Same day [facility] Billing Surgery - Charge Forward: Surgery Billing
[2023-10-29 08:16] VITALS: BP 151/82; PULSE 74; RESP 18; TEMP 36.5; O2SAT 98
[2023-10-29 09:00] VITALS: BP 161/77; PULSE 80; RESP 22; O2SAT 94
[2023-10-29] MEDS: BETAMETHASONE SODIUM PHOSPHATE PF INJ 6 MG/ML VIAL 1 MG INFILTRATE (09:06)
[2023-10-29 09:10] VITALS: BP 127/71; PULSE 71; RESP 20; O2SAT 99
[2023-10-29] MEDS: LIDOCAINE HCL 1% PF INJ 5 ML VIAL 2 ML XX (09:10)
[2023-10-29] MEDS: BUPivacaine HCL 0.5% PF 30 ML VIAL INFILTRATE (09:12)
== END 2023-10-29 09:22 | disposition home or self-care (01) ==
PROVIDERS: PCP Clinical Nurse Specialist; Visit Provider Anesthesiology Pain Medicine
PROC: (CPT G0260; principal; 2023-10-29 09:00)
DX: M46.1 Sacroiliitis, not elsewhere classified (principal)
CPT/HCPCS: G0260; 27096; 99199

== ENCOUNTER 2023-11-11 02:07 | Day surgery (SDC) | payer MEDICARE, SELFPAY ==
[2023-11-04 15:19] VITALS: BMI 28.8
--- NOTE | 2023-11-04 15:52 | PC.NURSE ---
Spoke with _PATIENT regarding medication ELIQUIS. Pt. verbalizes understanding that the last dose of _ELIQUIS__ is to be taken on __11/08/2023_ and the Endoscopist will instruct them when to restart after the procedure.
[2023-11-11 07:56] VITALS: BP 128/65; PULSE 99; RESP 17; TEMP 36; O2SAT 98; BMI 26.7
--- NOTE | 2023-11-11 08:09 | WPDANESEPPF ---
Anes - Initial Pre Proc Eval Procedure: Operation Date: 11/11/23 09:00 Proposed Procedures p Esophagogastroduodenoscopy & Colonoscopy - Collins Osborn MD Date/Time: 11/11/23 08:09 Surgeon: Collins Osborn MD Pre Op Diagnosis: Dysphagia, Diarrhea, Fecal urgency, Patient Data Age: 73 Gender: F Height: 1.65 m Weight: 72.9 kg Last Vital Signs Temp 96.8 F L 11/11/23 07:56 Pulse 99 11/11/23 07:56 Resp 17 11/11/23 07:56 BP 128/65 11/11/23 07:56 Pulse Ox 98 11/11/23 07:56 O2 Del Method Room Air 11/11/23 07:56 Allergies Allergy/AdvReac Type Severity Reaction Status Date / Time adhesive tape Allergy Intermediate Blister Verified 11/11/23 07:52 hydromorphone [From Dilaudid] Allergy Intermediate Itching Verified 11/11/23 07:52 morphine Allergy Intermediate Itching Verified 11/11/23 07:52 Home Medications Medication Instructions Recorded Confirmed Type blood-glucose meter #1 ea 05/04/20 11/11/23 Rx pen needle, diabetic 31 gauge x #360 ea 09/12/22 11/11/23 Rx 5/16 (BD Ultra-Fine Short Pen Needle) gabapentin 300 mg capsule 300 mg PO BID 90 days #180 caps 12/13/22 11/11/23 Rx empagliflozin 25 mg tablet 25 mg PO DAILY 04/15/23 11/11/23 History (Jardiance) insulin aspart U-100 100 unit/mL 5 unit subcut AC PRN glucose 04/15/23 11/11/23 History (3 mL) subcutaneous pen (Novolog FlexPen U-100 Insulin aspart) vibegron 75 mg tablet (Gemtesa) 75 mg PO DAILY 04/15/23 11/11/23 History buspirone 5 mg tablet 5 mg PO BID #180 tabs 06/10/23 11/11/23 Rx simvastatin 40 mg tablet 40 mg PO HS #90 tabs 07/23/23 11/11/23 Rx apixaban 5 mg tablet (Eliquis) 5 mg PO BID 07/28/23 11/11/23 History escitalopram oxalate 20 mg tablet 20 mg PO HS #90 tabs 08/19/23 11/11/23 Rx alendronate 70 mg tablet (Fosamax) 70 mg PO WEEKLY #14 tabs 09/26/23 11/11/23 Rx cholecalciferol (vitamin D3) 1,250 1,250 mcg PO WEEKLY #14 tabs 09/26/23 11/11/23 Rx mcg (50,000 unit) tablet linagliptin 5 mg tablet (Tradjenta) See Rx Instructions .Route 10/02/23 11/11/23 Rx .COMPLEX #90 tabs metformin 500 mg tablet See Rx Instructions .Route 10/22/23 11/11/23 Rx .COMPLEX #360 tabs colestipol 1 gram tablet 1 g PO DAILY 11/04/23 11/11/23 History lisinopril 40 mg tablet 40 mg PO DAILY 11/04/23 11/11/23 History metoprolol tartrate 25 mg tablet 25 mg PO BID 11/04/23 11/11/23 History trazodone 100 mg tablet 100 mg PO HS 11/04/23 11/11/23 History insulin degludec 200 unit/mL (3 18 unit subcut QPM 11/05/23 11/11/23 History mL) subcutaneous pen (Tresiba FlexTouch U-200 insulin) Patient hx anesthesia problems: none Family hx anesthesia problems: none Results Review: All pre-operative results and documents have been reviewed as part of the pre-operative evaluation. [facility] Past Medical History Medical History A-fib Acute hypoxic respiratory failure Adult failure to thrive Allergies Anxiety Arthritis Asthma Back injury L5 SI injection Back pain Bacteremia Brain bleed (2) CAD (coronary artery disease) Chest pain Colon polyps Costochondritis Depression Diabetic neuropathy DVT (deep venous thrombosis) (~1979) LLE Dyspnea Elevated LFTs Fluid overload Fungal dermatitis Generalized pruritus Hematoma of right thigh Hyperlipidemia Hypertension IBS (irritable bowel syndrome) Insomnia Leukocytosis Liver abscess Obesity Osteopenia Pneumobilia Postmenopausal Sepsis Septic shock SIRS (systemic inflammatory response syndrome) Thyroid disorder TIA (transient ischemic attack) Trigeminal neuropathy Type 2 diabetes mellitus Urinary incontinence Visceral hypersensitivity syndrome Surgical History Surgical History H/O foot surgery Left and right H/O knee surgery Left H/O: hysterectomy History of back surgery History of surgery of head placement of shunt Hx laparoscopic rossi
[2023-11-11 08:12] LABS: Glucose Point of Care 110 mg/dl (65-105)
[2023-11-11] MEDS: LACTATED RINGERS 1,000 ML 150 ML IV CONT (08:19)
--- NOTE | 2023-11-11 08:47 | PM.HPGS ---
History of Present Illness History of Present Illness Consent: Risks, benefits, and alternatives have been discussed and questions answered. Patient agrees to proceed with procedure. Chief complaint: Dysphagia, Diarrhea, Fecal urgency, Narrative: Alicia Del Toro is a 73 year old female here for egd and colonoscopy, she had cholecystectomy with bile leak, then I performed ERCP with stent, already removed. She has been having diarrhea but better with colestipol, also some dysphagia- no major findings during ercp Review of Systems Review of Systems: All systems reviewed & are unremarkable except as noted in HPI and below PMFSH Past Medical History Medical History A-fib Acute hypoxic respiratory failure Adult failure to thrive Allergies Anxiety Arthritis Asthma Back injury L5 SI injection Back pain Bacteremia Brain bleed (2) CAD (coronary artery disease) Chest pain Colon polyps Costochondritis Depression Diabetic neuropathy DVT (deep venous thrombosis) (~1979) LLE Dyspnea Elevated LFTs Fluid overload Fungal dermatitis Generalized pruritus Hematoma of right thigh Hyperlipidemia Hypertension IBS (irritable bowel syndrome) Insomnia Leukocytosis Liver abscess Obesity Osteopenia Pneumobilia Postmenopausal Sepsis Septic shock SIRS (systemic inflammatory response syndrome) Thyroid disorder TIA (transient ischemic attack) Trigeminal neuropathy Type 2 diabetes mellitus Urinary incontinence Visceral hypersensitivity syndrome Surgical History Surgical History H/O foot surgery Left and right H/O knee surgery Left H/O: hysterectomy History of back surgery History of surgery of head placement of shunt Hx laparoscopic cholecystectomy 06/2023 complicated by bile leak, bile peritonitis Status post cholecystectomy Family History Family History Mother , unknown cause Muscular dystrophy Father Carcinoma of colon Grandparent Acute myocardial infarction Ruptured appendix Sibling Acute myocardial infarction <65yo Social History Social History Smoking packs per day: 1 Smoking cigarettes per day: 20.0 Years smoked: 3 Smoking pack-years: 3.00 Smoking status: Former smoker Tobacco type: cigarettes Second hand tobacco smoke exposure: Yes () Additional smoking assessment comments: DENIES ANY FORM OF TOBACCO USE Alcohol intake: current Substance use: never Substance use type: does not use Do You Feel Safe in your Home?: Yes Lack of Transportation: No Lack of Food: Never True Current Housing: Decline to Answer Concerned About Future Housing: Decline to Answer Difficulty Paying Gas/Electric Bills: Decline to Answer Difficulty Paying for Meds: Decline to Answer Currently Unemployed: YES Education: Decline to Answer Difficulty w/ Childcare or Family Care: YES Living arrangements: with family Occupation/Education: retired Additional occupation/education comments: [employer] Gender identity (if verbalized by the patient): Female Spiritual care concerns: No Meds Home Medications and Allergies Home Medications Medication Instructions Recorded Confirmed Type blood-glucose meter #1 ea 05/04/20 11/11/23 Rx pen needle, diabetic 31 gauge x #360 ea 09/12/22 11/11/23 Rx 5/16 (BD Ultra-Fine Short Pen Needle) gabapentin 300 mg capsule 300 mg PO BID 90 days #180 caps 12/13/22 11/11/23 Rx empagliflozin 25 mg tablet 25 mg PO DAILY 04/15/23 11/11/23 History (Jardiance) insulin aspart U-100 100 unit/mL 5 unit subcut AC PRN glucose 04/15/23 11/11/23 History (3 mL) subcutaneous pen (Novolog FlexPen U-100 Insulin aspart) vibegron 75 mg tablet (Gemtesa) 75 mg PO DAILY 04/15/23 11/11/23 Hist
--- NOTE | 2023-11-11 09:01 | SUR.OPER ---
EGD: [id number] COLON: Start 901
[2023-11-11 09:17] VITALS: BP 91/43; PULSE 71; RESP 19; O2SAT 98
[2023-11-11 09:27] VITALS: BP 80/49; PULSE 67; RESP 18; O2SAT 100
[2023-11-11 09:34] LABS: Glucose Point of Care 102 mg/dl (65-105)
[2023-11-11 09:36] VITALS: BP 107/60; PULSE 67; RESP 18; O2SAT 100
== END 2023-11-11 09:50 | disposition home or self-care (01) ==
PROVIDERS: PCP Clinical Nurse Specialist; Referring Provider Nurse Practitioner Family; Visit Provider Internal Medicine Gastroenterology
PROC: 0DJ08ZZ Inspection of Upper Intestinal Tract, Via Natural or Artificial Opening Endoscopic (ICD-10-PCS; CPT 43235; principal; 2023-11-11 09:00)
DX: K63.5 Polyp of colon (principal); K64.8 Other hemorrhoids; K57.30 Diverticulosis of large intestine without perforation or abscess without bleeding; E11.40 Type 2 diabetes mellitus with diabetic neuropathy, unspecified; E78.5 Hyperlipidemia, unspecified; I10 Essential (primary) hypertension; F41.9 Anxiety disorder, unspecified; J45.909 Unspecified asthma, uncomplicated; F32.A Depression, unspecified; K58.9 Irritable bowel syndrome, unspecified; G47.00 Insomnia, unspecified; E07.9 Disorder of thyroid, unspecified; J96.01 Acute respiratory failure with hypoxia; I48.91 Unspecified atrial fibrillation; R62.7 Adult failure to thrive; I25.10 Atherosclerotic heart disease of native coronary artery without angina pectoris; R65.10 Systemic inflammatory response syndrome (SIRS) of non-infectious origin without acute organ dysfunction; G50.8 Other disorders of trigeminal nerve; R32 Unspecified urinary incontinence; H53.8 Other visual disturbances; Z79.84 Long term (current) use of oral hypoglycemic drugs; Z79.4 Long term (current) use of insulin; Z79.01 Long term (current) use of anticoagulants; Z79.83 Long term (current) use of bisphosphonates; Z98.890 Other specified postprocedural states; Z90.49 Acquired absence of other specified parts of digestive tract; Z98.1 Arthrodesis status; Z98.2 Presence of cerebrospinal fluid drainage device; Z87.891 Personal history of nicotine dependence; Z86.010 Personal history of colon polyps; Z86.718 Personal history of other venous thrombosis and embolism; Z86.73 Personal history of transient ischemic attack (TIA), and cerebral infarction without residual deficits; Z80.0 Family history of malignant neoplasm of digestive organs; Z82.49 Family history of ischemic heart disease and other diseases of the circulatory system
CPT/HCPCS: 43239; 45385; 45380; 82948; 88305; J2704; J7120

== ENCOUNTER 2023-12-09 14:04 | Outpatient (NON) | payer MEDICARE, SELFPAY | END 2023-12-09 14:05 | disposition home or self-care (01) | LOC: ANHGOSHLAB 14:05 | PROVIDERS: PCP Clinical Nurse Specialist; Visit Provider Clinical Nurse Specialist | DX: R39.9 Unspecified symptoms and signs involving the genitourinary system (principal) | CPT/HCPCS: 87077; 87086; 87186 ==

== ENCOUNTER 2024-01-10 06:36 | Outpatient (CLI) | payer MEDICARE, SELFPAY ==
--- NOTE | ~2024-01-10 | CT_ITS ---
CT of the Abdomen and Pelvis: Indication: Hepatic abscess Technique: 2.5 mm axial scans were obtained through the abdomen and pelvis following intravenous adm inistration of 100 cc of Omnipaque 350. Dose reduction technique was used on this scan by utilizing a utomated exposure control and iterative reconstruction technique. The dose-length product (DLP) was 8 22.25 mGy-cm. COMPARISON: 09/02/2023 Findings: Scans through the lung bases are unremarkable. Tiny residual hypodensity noted in the superior right hepatic lobe. No new hepatic lesion identified. Cholecystectomy clips are present. The spleen, pancreas, adrenals and kidneys are within normal limi ts. No evidence of aortic aneurysm. No lymphadenopathy. No bowel obstruction or bowel wall thickening. There is no evidence to suggest acute appendicitis. Images through the pelvis were performed. Urinary bladder unremarkable. Status post hysterectomy. No pelvic mass seen. No ascites. [employer] BAND WRAPPER shunt noted. Impression: Stable tiny residual hypodensity and several hepatic lobe, likely representing chronic post inflammat ory change/chronic sequelae of prior abscess. Reviewed, dictated and finalized at location . [employer] ADVIS[employer] Impression: Stable tiny residual hypodensity and several hepatic lobe, likely representing chronic post inflammatory change/chronic sequelae of prior abscess.
[2024-01-10 07:14] LABS: Estimated Glomerular Filt Rate > 60
== END 2024-01-10 06:37 | disposition home or self-care (01) ==
PROVIDERS: PCP Clinical Nurse Specialist; Visit Provider Clinical Nurse Specialist
DX: K75.0 Abscess of liver (principal)
CPT/HCPCS: 74177; Q9967

== ENCOUNTER 2024-01-17 15:53 | Outpatient (CLI) | payer MEDICARE, SELFPAY ==
[2024-01-23 17:39] LABS: Pancreatic Elastase, Stool 209 mcg/g (>200)
[2024-01-25 17:55] LABS: Calprotectin, Stool 87 mcg/g
== END 2024-01-17 15:54 | disposition home or self-care (01) ==
PROVIDERS: PCP Clinical Nurse Specialist; Visit Provider Nurse Practitioner Family
DX: R15.9 Full incontinence of feces (principal); R19.7 Diarrhea, unspecified
CPT/HCPCS: 82653; 83993

== ENCOUNTER 2024-01-21 12:49 | Outpatient (CLI) | payer MEDICARE, SELFPAY ==
[2024-01-21 13:37] LABS: Basophils Absolute Auto 0.1 K/mm3 (0.0-0.1); Basophils Percent Auto 0.7 % (0.2-1.2); Eosinophils Absolute Auto 0.4 K/mm3 (0-0.3); Eosinophils Percent Auto 3.4 % (0-4.4); Hematocrit 40.2 % (37.0-47.0); Hemoglobin 12.6 g/dL (12.0-15.0); Immature Granulocyte Absolute 0.05 K/mm3 (0.00-0.031); Immature Granulocyte Percent A 0.4 % (0-0.5); Lymphocytes Absolute Auto 1.98 K/mm3 (0.9-3.2); Lymphocytes Percent Auto 16.6 % (18.3-44.2); Mean Corpuscular HGB Conc 31.3 g/dl (32-36); Mean Corpuscular Hemoglobin 27.3 pg (26-34); Mean Platelet Volume 10.3 fl (7.4-10.4); Monocytes Absolute Auto 0.7 K/mm3 (0.1-0.6); Monocytes Percent Auto 5.6 % (2.6-8.5); Neutrophils Absolute Auto 8.7 K/mm3 (1.3-6.7); Neutrophils Percent Auto 73.3 % (45.5-73.1); Platelet Count Result 268 k/mm3 (150-375); Red Blood Count 4.62 M/mm3 (4.2-5.4); White Blood Count 11.9 K/mm3 (4.5-10.0)
[2024-01-21 13:54] LABS: Iron 59 ug/dL (37-170)
[2024-01-21 14:04] LABS: Percent Iron Saturation 18 % (20-50)
[2024-01-21 14:11] LABS: Anion Gap 6 mmol/L (4-12); Blood Urea Nitrogen 20 mg/dL (7-17); Calcium 8.7 mg/dL (8.4-10.2); Carbon Dioxide 26 mmol/L (22-30); Chloride 107 mmol/L (98-107); Estimated Glomerular Filt Rate > 60; Glucose 119 mg/dL (65-110); Phosphorus 3.4 mg/dL (2.5-4.5); Potassium 3.9 mmol/L (3.4-5.0); Sodium 139 mmol/L (137-145)
[2024-01-21 14:45] LABS: Vitamin D 25 Hydroxy 50.4 ng/mL
[2024-01-22 08:08] LABS: Prolactin 10.4 ng/mL
== END 2024-01-21 12:50 | disposition home or self-care (01) ==
PROVIDERS: PCP Clinical Nurse Specialist; Referring Provider Internal Medicine Endocrinology, Diabetes & Metabolism; Visit Provider Clinical Nurse Specialist
DX: L65.9 Nonscarring hair loss, unspecified (principal); D50.0 Iron deficiency anemia secondary to blood loss (chronic); R74.8 Abnormal levels of other serum enzymes; E11.9 Type 2 diabetes mellitus without complications; E55.9 Vitamin D deficiency, unspecified; R79.89 Other specified abnormal findings of blood chemistry; Z91.89 Other specified personal risk factors, not elsewhere classified
CPT/HCPCS: 36415; 80069; 82306; 82728; 83540; 83550; 84146; 84443; 85025

== ENCOUNTER 2024-05-22 21:15 | Emergency (ER) | payer MEDICARE, SELFPAY ==
--- NOTE | ~2024-05-22 | XR_ITS ---
HISTORY: s/p knee replacement, new pain COMPARISON: 04/26/2023 and 04/22/2023 TECHNIQUE: 3 views of the right knee were performed FINDINGS: A right total knee arthroplasty is identified with patellar resurfacing in near anatomic alignment (u nchanged from postoperative examination) No periprosthetic fracture is appreciated. No lucency is identified surrounding the hardware, to suggest loosening. IMPRESSION: No periprosthetic fracture is identified. No signs to suggest hardware loosening appreciated. Reviewed, dictated and finalized at location A.
[2024-05-22 21:16] VITALS: BP 94/72; PULSE 85; RESP 20; TEMP 36.9; O2SAT 98
--- NOTE | 2024-05-22 21:52 | PC.NURSE ---
this rn updated patient home medications according to patient med list which she provided.
--- OUTSIDE RECORDS SUMMARY | 2024-05-22 21:53 | XMS_ITS ---
Author Organization [facility] Address [address] [place], [place] [id number] Care Team Providers Care S3B Multi Sensor Operator Name Role Phone IVAN MASON Unavailable [phone] Santos Keller Unavailable Unavailable REASON FOR VISIT The patient has pain in two areas on the same foot. The one area is the painful neuroma between theright 3rd and 4th toes. This has been an ongoing problem and cortisone injections help., She also has pain in her right ankle. 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 Discussed conservative care consisting of padding, wider shoes, anti-inflammatorie s, and orthotics. Discussed surgical treatment options and answered all questions about the intra-operative and post-operative treatment course. Kenalog Injection: Following skin prep, a total of 3 ccs of a 1-1-1 mix of 0.5% marcaine plain, 1% lidocaine plain, and Kenalog was injected to the right 3rd interspace. 12/09/2023 Primary osteoarthritis , right ankle and foot (ICD-10 - M19.071) Arthritis, Osteo: I discussed anti-inflammatory treatment options and various means of immobilization with the patient. I educated the patient on icing and stretching, supportive shoegear, and the use of orthotic devices and bracing. Kenalog Injection: Following skin prep, a total of 3 ccs of a 1-1-1 mix of 0.5% marcaine plain, 1% lidocaine plain, and Kenalog was injected to the right sinus tarsi 12/09/2023 Pain in right foot (ICD-10 - M79.671) Plan Of Treatment Treatment Notes Assessment Notes Lesion of plantar nerve, right lower klein b Neuroma: Discussed various treatments with the patient regarding neuroma. Discussed conservative care consisting of padding, wider shoes, anti-inflammatories, and orthotics. Discussed surgical treatment options and answered all questions about the intra-operative and post-operative treatment course. Kenalog Injection: Following skin prep, a total of 3 ccs of a 1-1-1 mix of 0.5% marcaine plain, 1% lidocaine plain, and Kenalog was injected to the right 3rd interspace. Primary osteoarthritis, righ t ankle and foot Arthritis, Osteo: I discussed anti-inflammatory treatment options and various means of immobilization with the patient. I educated the patient on icing and stretching, supportive shoegear, and the use of orthotic devices and bracing. Kenalog Injection: Following skin prep, a total of 3 ccs of a 1-1-1 mix of 0.5% marcaine plain, 1% lidocaine plain, and Kenalog was injected to the right sinus tarsi Next Appt Details Follow Up: prn, Reason: Progress Notes * ANNEMARIE MANZANO RDOB:[birth year] (74 yo F)Acc No.[id number]:12/09/2023 Patient: Nitin LISAAUBREY ANNEMARIE Rocio Provider: Ibis Mason DPM :1950 A ge:73 Y S ex:Female Date:12/09/2023 Address:[address] [place] [address] Subjective: * Chief Complaints: * 1 . The patient has pain in two areas on the same foot. The one area is the painful neuroma between the right 3rd and 4th toes. This has been an ongoing problem and cortisone injections help.. 2. She also has pain in her right ankle. This has gotten worse with the recent weather changes. * HPI: H PI: Follow Up Visit P santi presents for follow-up visit for right foot pain. Patient is wanting to get an injection. She has gotten them before for this reason. , MA: ho. * ROS: G eneral / Constitutional: Patient denies c hills, fever, weakness, night sweats. M usculoskeletal: Patient denies c hildhood foot problems, weakness. P santi complains of n euroma. P eripheral Vascular: Patient denies u lceration of feet, cold extremities. ? S kin: Patient denies u lcerations, discoloration. ? N eurologic: Patient denies b alance difficulty, confusion, difficulty speaking, dizziness. * Medical History: * Medications: T aking Medrol Dosepak ORAL , Notes to Pharmacist: Medrol DosepakOriginal MedicationMedrol Dosepak *Reorder from [facility] for eRx and Interaction Alerts*, Taking methylPREDNISolone 4 MG Tablet Therapy Pack as directed Orally , Medication List reviewed and reconciled with the patient Objective: * Vitals: * Examination: C onstitutional: Constitutional T he patient is awake, alert, well developed, well groomed and well nourished. D ermatologic: Skin findings: S kin is thin, atrophic and lacking pedal hair. Nail pathology: N ails 1,2,3,4, and 5 bilateral are elongated, thick, discolored, and dystrophic with subungual debris. They are painful to palpation. ? V ascular: Dorsalis pedis pulse: 1 /4, bilateral. Posterior tibial pulse: 0 /4, bilateral. Capillary refill: l ess than 3 seconds. Edema: N o edema, bilateral. N eurologic: Mulders sign: p ositive, right. Gross sensation G ross sensation is intact to light touch.? M usculoskeletal: Muscle Strength M uscle strength is 5/5 in regards to dorsiflexion, plantarflexion, inversion, and eversion in bilateral lower extremities. Pain on palpation 3 rd interspace of the right foot. There is splaying between the 3rd and 4th toes of the right foot, lateral portal of the right sinus tarsi and with ROM of the subtalar joint. Assessment: * Assessment: 1. L esion of plantar nerve, right lower limb - G57.61 (Primary) 2 . P rimary osteoarthritis, right ankle and foot - M19.071 3 . P ain in right foot - M79.671 Plan: * Treatment: 2. P rimary osteoarthritis, right ankle and foot Notes: Arthritis, Osteo: I discussed anti-inflammatory treatment options and various means of immobilization with the patient. I educated the patient on icing and stretching, supportive shoegear, and the use of orthotic devices and bracing. Kenalog Injection: Following skin prep, a total of 3 ccs of a 1-1-1 mix of 0.5% marcaine plain, 1% lidocaine plain, and Kenalog was injected to the right sinus tarsi * Procedure Codes: 2 0605 DRAIN/INJECT, JOINT/BURSA, Modifiers: RT , 39286 N BLOCK INJ, PLANTAR DIGIT, Modifiers: 59 , RT * Follow Up: p rn * Billing Information: * Visit Code: * Procedure Codes: 69551 DRAIN/INJECT, JOINT/BURSA. Modifiers: [place] [address] N BLOCK INJ, PLANTAR DIGIT. Modifiers: 59, RT * Sign off status: Completed true * Provider: Ibis Mason DPM Date: 1 Generated for [place] rosales/Sera/Raffy on: 0 05/22/2024 09:52 PM CDT History and Physical Notes * HPI (History of Present Illness) Category Sub-Category Detail Notes Category Not es HPI Follow Up Visit Patient presents for follow-up visit for right foot pain. Patient is wanting to get an injection. She has gotten them before for this reason. , MA: [facility] Examination Category Sub-Category Detail Notes Category Not es Dermatologic Skin findings: Skin is thin, at rophic and lacking pedal hair Nail pathology: Nails 1,2,3,4, and 5 bilateral are elongated, thick, discolored, and dystrophic with subungual debris. They are painful to palpation Neurologic Mulders sign: positive, right Gross sensation Gross sensation is i ntact to light touch Vascular Dorsalis pedis pulse: 1/4, bilateral Edema: No edema, bilateral Capillary refill: less than 3 seconds Posterior tibial pulse: 0/4, bilateral Musculoskeletal Muscle Strength Muscle strength is 5/5 in regards to dorsiflexion, plantarflexion, inversion, and eversion in bilateral lower extremities Pain on palpation 3rd interspace of th e right foot. There is splaying between the 3rd and 4th toes of the right foot, lateral portal of the right sinus tarsi and with ROM of the subtalar joint Constitutional Constitutional The patient is a wake, alert, well developed, well groomed and well nourished
--- OUTSIDE RECORDS SUMMARY | 2024-05-22 21:53 | XMS_ITS | Clinical Summary ---
Author Organization [facility] Address [address] [place] [address] Care Team Providers Care Hog Room Supervisor Name Role Phone Santos Keller DO Primary Care Provider Source Comments [facility],non-owned Affiliates and Associated Physician Practices is amultiple site organization consisting of ambulatory clinics and hospital sitesin [place], [place], [place] and [place]. This disclosure is being madepursuant to the Care Everywhere program and may not contain all information available regarding this patient. Last updated 17.[facility] Allergies Active Allergy Reactions Criticality Noted Date Comments Adhesive Sensitivity Rash High 03/29/2015 Contrast-Iodinated Agents Fo r Ct/Other Itching 02/08/2011 Hydromorphone Itching High 03/29/2015 Hydromorphone Hcl Itching High 12/26/2010 Iohexol Itching 02/08/2011 Latex Itching,Rash Medium 03/29/2015 Morphine Urticaria,Itching High 03/02/2009 Morphine Sulfate Skin Reactions,Itching 010 Medications * Be aware that medications may not be up to date on this document. Alwaysverify current medications with the patient. Medication Sig Dispensed Refills Start Date End Date Status Glucose Blood (BLOOD GLUCOSE TEST STRIPS) STRP Use 1 strip TID. 300 strip 12 11/15/2016 Active Additional Information Patient not taking.Reported on 04/03/2022 escitalopram (LEXAPRO) 20 MG tablet Take 1 (one) tablet by mouth DAILY 03/16/2016 Active lisinopril (PRINIVIL; ZESTRIL) 40 MG tablet Take 1 (one) tablet by mouth once daily 02/21/2011 Active metoprolol tartrate (LOPRESSOR) 50 MG tablet Take 25 mg by mouth 2 times daily 12/19/2010 Active LYRICA 50 MG capsule 3 times daily 03/18/2017 Active simvastatin (ZOCOR) 40 MG tablet Take 1 (one) tablet by mouth once daily 08/25/2010 Active clonazePAM (KLONOPIN) 0.5 MG tablet Take 2 mg by mouth at bedtime 09/08/2017 Active oxybutynin CR 24hr (Ditropan-XL) 5 MG tablet Take 1 (one) tablet by mouth once daily Active estradiol (ESTRACE) 2 MG tablet TK 1 T PO QD 12 10/09/2017 Active insulin syringe-needle (BD ULTRAFINE II) 31G X 5/16 0.5 ML syringeIndications :Type 2 diabetes mellitus with hyperglycemia, with long-term current use of insulin (HCC) 2 times daily 200 Each 11 12/19/2017 Active Additional Information Patient not taking.Reported on 04/03/2022 baclofen (LIORESAL) 10 MG tablet 01/15/2018 Active clonazePAM (KLONOPIN) 1 MG tablet 03/01/2018 Active apixaban (Eliquis) 5 MG tablet Take 1 (one) tablet by mouth 2 times daily Active NOVOLIN N vial FOR DIRECTIONS ON HOW TO TAKE THIS MEDICINE, READ THE ENCLOSED MEDICATION INFORMATION FORM 50 mL 3 06/24/2018 Active metFORMIN (GLUCOPHAGE) 1000 MG tablet Take 1 tablet by mouth 2 times daily with morning and evening meal 180 tablet 06/24/2018 Active VICTOZA 18 MG/3ML pen 10/19/2019 Active glimepiride (AMARYL) 2 MG tablet Take 1 (one) tablet by mouth 2 times daily as needed bid Active busPIRone (Buspar) 5 MG tablet 03/07/2022 Active gabapentin (Neurontin) 300 MG capsule 02/27/2022 Active Tresiba FlexTouch 200 UNIT/ML pen 03/07/2022 Active Tradjenta 5 MG tablet Take 1 (one) tablet by mouth every morning 03/13/2022 Active traZODone (Desyrel) 100 MG tablet 02/27/2022 Active Gemtesa 75 MG TABS 03/12/2022 Active Active Problems Problem Noted Date Diagnosed Date Trigeminal neuralgia 12/28/2020 Anxiety 08/18/2018 Primary hypertension 05/19/2018 Atrial fibrillation 04/28/2018 S/P rotator cuff repair 03/18/2018 S/P PRODUCT MARKETING PROGRAMS MANAGER shunt 10/31/2017 Overview (10/31/2017): Strata valve: 10/31/17 found @ 2.0 jw Arthritis of right acromioclavicular joint 09/17 Supraspinatus tendon tear, left, subsequent enco unter 08/20/2017 Complete tear of right rotator cuff 07/23/2017 Tendinopathy of rotator cuff, left 07/23/2017 Type 2 diabetes mellitus with hyperglycemia 04/20 terminal 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 05/17/2016 Type 2 diabetes mellitus wit h hyperglycemia, with long-term current use of insulin 05/17/2016 Costochondral chest pain 09/07/2015 Major depressive disorder, single episode 2014 Obstructive sleep apnea 08/27/2014 Benign neoplasm of cerebral meninges 02/26/2014 Presence of cerebrospinal fluid drainage device 10/30/2013 Overview (05/20/2017): Strata II at 1.0 Benign meningioma 10/28/2013 Vitamin D deficiency 09/06/2011 Obstructive hydrocephalus 09/06/2011 Hyperlipidemia 09/06/2011 Depressive disorder 11/10/2010 Dyslipidemia 03/02/2009 Resolved Problems Problem Noted Date Diagnosed Date Resolved Date Unspecified disorder of syno vium and tendon, left shoulder 05/03/2017 07/18/2017 Pruritus 12/05/2016 07/18/2017 Overview (05/20/2017): IMO regulatory upload 12/04 Chest pain on breathing 05/17/201606/20 Dependence on other enabling machines and devices 08/27/2014 07/18/2017 Deficiency of other specifie d B group vitamins 09/06/2011 07/18/2017 Immunizations Name Administration Dates Next Due INFLUENZA VACCINE 12/16/2020,11/19/2019,11/07/19 13 PNEUMOCOCCAL PPSV23 02/26/2014 Family History Medical History Relation Name Comments Hypertension Brother 1 Status: Alive Depression Brother 2 Other Brother 3 michelle None Known Daughter nurse Status: Alive Cancer - Colon Father Status: Decea sed Other Mother muscular dystro phy; Status: Diabetes Sister 1 Status: Alive Depression Sister 2 Obesity Sister 3 Relation Name Status Comments Brother 1 Brother 2 Brother 3 Daughter nurse Father Mother Sister 1 Sister 2 Sister 3 Social History Tobacco Use Types Packs/Day Years Used Date Smoking Tobacco: Former Cigarettes Q uit: 08/26/2014 Smokeless Tobacco: Never Tobacco Cessation:Counseling Given: No Alcohol Use Standard Drinks/Week Comments No 0 (1 standard drink = 0.6 oz pur e alcohol) Sex and Gender Information Value Date Recorded Sex Assigned at Not on file Gender Identity Not on file Sexual Orientation Not on file Last Filed Vital Signs Vital Sign Reading Time Taken Comments Blood Pressure 131/72 04/03/2022 3:42 PM TECHNICAL SYSTEM ANALYST Pulse 90 04/03/2022 3:42 PM TECHNICAL SYSTEM ANALYST Temperature 36.1 C (97 F) 04/03/2022 3:42 PM TECHNICAL SYSTEM ANALYST Respiratory Rate 18 04/03/2022 3:42 PM TECHNICAL SYSTEM ANALYST Oxygen Saturation 97% 04/03/2022 3:42 PM TECHNICAL SYSTEM ANALYST Inhaled Oxygen Concentration - - Weight 87 kg (191 lb 12.8 oz) 04/03/2022 3:42 PM TECHNICAL SYSTEM ANALYST Height 165.1 cm (5' 5 ) 04/03/2022 3:42 PM TECHNICAL SYSTEM ANALYST Body Mass Index 31.92 04/03/2022 3:42 PM TECHNICAL SYSTEM ANALYST Plan of Treatment Health Maintenance Due Date Last Done Comments COLOGUARD (AGES 45-75) - COLON CA SCREENING 1952 COLON MONITORING 1952 COLONOSCOPY - COLON CA SCREENING 1952 CT COLONOGRAPHY - COLON CA SCREENING 1950 Colorectal Cancer Screening 1952 FIT - COLON CA SCREENING 1952 FLEX SIG - COLON CA SCREENING 1952 MAMMOGRAM 1952 HEPATITIS C SCREENING 01/18/1970 DTAP/TDAP/TD VACCINES (1 - Tdap) 01/22/1971 ZOSTER VACCINE (1 of 2) 01/22/2002 PNEUMOCOCCAL VACCINE 50+ (2 of 2 - PCV) 02/26/2015 02/26/2014 DIABETES-SERUM CREATININE 04/07/20162015, 02/22/2015, 02/22/2014, Additional history exists DIABETES RETINOPATHY SCREENING 05/20/2017 DIABETES-HGB A1C 06/18/2018 12/19/2017, , 08/29/2015, Additional history exists DIABETES-FOOT EXAM WITH MONOFILAMENT 07/18/2018 07/18/2017, 07/18/2017 COVID-19 VACCINE ( season) 2023 DEPRESSION SCREENING 02/19/2024 DIABETES - URINE PROTEIN SCREENING 02/19/2024 02/22/2015, 04/22/2013, 08/12/2010 MEDICARE AWV CALENDAR YEAR 2024 INFLUENZA VACCINE (Season Ended) 2024 12/16/2020, 11/19/2019, 11/06/2012 Respiratory Syncytial Virus (RSV) Vaccine Pt: or over 60 yrs (1 - 1-dose 75+ series) 01/22/2027 BONE DENSITY TESTING Completed 10/01/2012 HEPATITIS B VACCINE Aged Out No longe r eligible based on patient's age to complete this topic HIB VACCINE Aged Out No longer eligi ble based on patient's age to complete this topic HPV VACCINE Aged Out No longer eligi ble based on patient's age to complete this topic MENINGOCOCCAL (Group B) VACCINE SHARED DECISION-MAKING Aged Out No longer eligible based on patient's age to complete this topic MENINGOCOCCAL GROUPS A/C/Y/W VACCINE Aged Out No longer eligible based on patient's age to complete this topic Medical Devices Implanted Type Area Airworthiness Safety Inspector Device Identifier Shelf Expiration Date Model / Serial / Lot Splicer Apprentice Shunt [employer] Description:stratta II Healix Advance Br Haskell With Dynacord Implanted:Qty: 3 on 10/14/2017 by Ron Yan MD at [facility] Right: Shoulder [employer] 03/20/2020 [id number] / / [id number] Healix Advance Knotless Br Haskell Implanted:Qty: 1 on 10/14/2017 by Ron Yan MD at [facility] Right: Shoulder [employer] 05/18/2020 [id number] / / [id number] Procedures Procedure Name Priority Date/Time Associated Diagnosis Comments HEMOGLOBIN A1C - POINT OF CARE (AMB) [facility] Routine 12/19/2017 3:04 PM CDT Uncontrolled type 2 diabetes mellitus with hyperglycemia COMPREHENSIVE METABOLIC PANEL STAT 04/07/2015 12:53 PM TECHNICAL SYSTEM ANALYST MICROALB/CREAT RATIO URINE RANDOM PANEL Routine 02/22/2015 9:56 AM TECHNICAL SYSTEM ANALYST DEXA BONE DENSITY AXIAL SKELETON Routine 10/01/2012 2:26 PM CDT from Last 3 Months or Most Recently Relevant to Health Maintenance Results * HEMOGLOBIN A1C - POINT OF CARE (AMB) [facility] (12/19/2017 3:04 PM CDT) Hemoglobin A1c POCT 7.5 [facility] Blood BLOOD SPECIMEN / Unknown 12/19/2017 3:04 PM CDT Isaiah Rodriguez MD LAB - POINT OF CARE ORDERABLES Performing Organization Address City/State/[facility] Co de Phone Number [facility] [address] [phone] * (ABNORMAL) COMPREHENSIVE METABOLIC PANEL (04/07/2015 12:53 PM TECHNICAL SYSTEM ANALYST) BUN 24 7 - 26 mg/dL [facility] Creatinine 1.0 0.6 - 1.2 mg/dL [facility] Sodium 137 136 - 145 mmol/L [facility] Potassium 5.0(H) 3.5 - 4.5 mmol/L [facility] Chloride 105 98 - 107 mmol/L [facility] CO2 23 22 - 29 mmol/L [facility] Glucose 110 70 - 115 mg/dL [facility] Calcium 9.0 8.4 - 10.2 mg/dL [facility] Protein Total 6.7 6.0 - 8.3 g/dL [facility] Albumin 3.3(L) 3.4 - 5.0 g/dL [facility] Bilirubin Total 0.3 0.2 - 1.2 mg/dL [facility] Alkaline Phosphatase 81 40 - 150 Units/L [facility] ALT 13 0 - 55 Units/L [facility] AST 12 5 - 34 Units/L [facility] Anion Gap 14 8 - 18 [facility] BUN/Creatinine Ratio 24(H) 7 - 23 [facility] Osmolality Calculated 275 270 - 300 mOsm/kg [facility] Albumin/Globulin Ratio 1.0(L) 1.1 - 2.3 [facility] eGFR 56(L) >60 mL/min/1.7 3 m2 [facility] Blood specimen (specimen) BLOOD SPECIMEN / Unknown 04/07/2015 12:53 PM TECHNICAL SYSTEM ANALYST 04/07/2015 1:05 PM TECHNICAL SYSTEM ANALYST Historical Provider LAB - CHEMISTRY O RDERABLES [address] [phone] * MICROALB/CREAT RATIO URINE RANDOM PANEL (02/22/2015 9:56 AM TECHNICAL SYSTEM ANALYST) Creatinine Urine 164 20 - 320 mg/dL [facility] ([facility]) Comment: Test Performed at: [place] [place] [address] SILVIANO KIMBROUGH DO,MPH Microalbumin Urine 1.5 mg/dL [facility] ([facility]) Comment: Reference Range Not established Test Performed at: [employer] [facility] [place] [address] SILVIANO KIMBROUGH DO,MPH Urine Albumin/Creatinine Ratio 9 <30 mcg/mg creat [facility] ([facility]) Comment: The ADA defines abnormalities in albumin excretion as follows: Category Result (mcg/mg creatinine) Normal <30 Microalbuminuria 30-299 Clinical albuminuria > OR = 300 The ADA recommends that at least two of three specimens collected within a 3-6 month period be abnormal before considering a patient to be within a diagnostic category. 02/22/2015 9:56 AM TECHNICAL SYSTEM ANALYST 02/22/2015 9:56 AM TECHNICAL SYSTEM ANALYST Isaiah Rodriguez MD LAB - URINE CHEMISTR Y ORDERABLES [facility] ([facility] * DEXA BONE DENSITY AXIAL SKELETON (10/01/2012 2:26 PM CDT) Anatomical Region Laterality Modality Other Narrative 10/01/2012 5:19 PM CDT Procedure: Dual energy x-ray absorptiometry of the lumbar spine and hip. Clinical Indication: Postmenopausal/hysterectomy Findings: No prior studies are available for comparison. Orthopedic hardware is noted in the L4/L5 lumbar spine. Detailed data from the exam is sent separately to the ordering physician and is also available on [employer], the Radiology Department's computerized picture archive system. SUMMARY: BONE MINERAL DENSITY (BMD) Lumbar spine(L1-L3): T-score: 2.7, normal. BONE MINERAL DENSITY (BMD) left hip: T-score: -1.2, osteopenia. FRAX (10-year fracture risk): Major osteoporotic fracture risk: 6.5%, hip fracture risk: 0.5% Definitions: T-score = Standard Deviation Normal: A value for bone mineral density(BMD) within 1 standard deviation of the young adult reference mean. (T-score above -1) Low bone mass(osteopenia): A value for bone mineral density(BMD) more than 1 standard deviation below the young adult mean, but less than 2.5 standard deviations below the young adult mean. ( T-score between -1 and -2.5) Osteoporosis: A value for bone mineral density 2.5 standard deviations or more below the young adult mean. ( T-score at or below -2.5) Severe osteoporosis: Osteoporosis + the presence of one or more fragility fractures. This report was approved by Timo Sebastian M.D. on 10/01/2012 4:41 PM . I, Dr. Aung Brown D.O. have personally reviewed and interpreted this examination/study. This report was electronically signed by Aung Brown D.O. on 10/01/2012 5:19 PM . Procedure Note Aung Brown, DO - 05/19/2017 Procedure: Dual energy x-ray absorptiometry of the lumbar spine and hip. Clinical Indication: Postmenopausal/hysterectomy Findings: No prior studies are available for comparison. Orthopedichardware is noted in the L4/L5 lumbar spine. Detailed data from the exam is sent separately to the ordering physicianand is also available on [employer], the Radiology Department's [employer] archive system. SUMMARY: BONE MINERAL DENSITY (BMD) Lumbar spine(L1-L3): T-score: 2.7, normal. BONE MINERAL DENSITY (BMD) left hip: T-score: -1.2, osteopenia. FRAX (10-year fracture risk): Major osteoporotic fracture risk: 6.5%, hip fracture risk: 0.5% Definitions: T-score = Standard Deviation Normal: A value for bone mineral density(BMD) within 1 standard deviationof the young adult reference mean. (T-score above -1) Low bone mass(osteopenia): A value for bone mineral density(BMD) more than1 standard deviation below the young adult mean, but less than 2.5standard deviations below the young adult mean. ( T-score between -1 and-2.5) Osteoporosis: A value for bone mineral density 2.5 standard deviations ormore below the young adult mean. ( T-score at or below -2.5) Severe osteoporosis: Osteoporosis + the presence of one or more fragilityfractures. This report was approved by Timo Sebastian M.D. on 10/01/2012 4:41 PM. I, Dr. Aung Brown D.O. have personally reviewed and interpreted thisexamination/study. This report was electronically signed by Aung Brown D.O. on 10/01/20125:19 PM . Jermaine Temple MD DEXA ORDERABLES from Last 3 Months or Most Recently Relevant to Health Maintenance Advance Directives Documents on File Type Date Recorded Patient Change Management Expl anation Adv Directive/Living Will/POA 10/14/2017 POA/LIVING WILL Care Teams Hog Room Supervisor Relationship Specialty Start Date End Date Santos Keller DO PCP - General Internal Medicine 09/02/19
--- OUTSIDE RECORDS SUMMARY | 2024-05-22 21:53 | XMS_ITS | Clinical Summary ---
Author Organization [facility] Address [address] [place] [address] Care Team Providers Care Garment Form Assembler Name Role Phone Sayda Ignacio MD Unavailable [phone] Urbano Portillo MD Unavailable [phone] Perry Fu DPM Unavailable Carmel Tristan MD Unavailable Allergies Active Allergy Reactions Criticality Noted Date Comments Adhesive Rash Medium 03/29/2015 Cefaclor Other (See comments) Low 03/19/2019 Hydromorphone Itching High 12/26/2010 Iodinated Contrast Media Itching Low 02/08/2011 Iohexol Itching Low 02/08/2011 Latex Itching,Rash Medium 03/29/2015 Morphine Itching,Other (See comments),Rash,Urticaria Medium 03/02/2009 Medications apixaban (ELIQUIS) 5 mg tablet 5 mg Active empagliflozin (JARDIANCE) 25 mg tabletIndicatio ns:type 2 diabetes mellitus 25 mg Active glimepiride (AMARYL) 2 mg tabletIndicatio ns:type 2 diabetes mellitus Take 2 mg by mouth daily before breakfast Active metFORMIN XR (GLUCOPHAGE XR) 500 mg 24 hr tablet Take 500 mg by mouth daily with breakfast Active escitalopram (LEXAPRO) 20 mg tabletIndicatio ns:Generalized anxiety disorder Take 1 tablet (20 mg total) by mouth daily 90 tablet 1 0 Active lisinopril (PRINIVIL,ZESTR IL) 40 mg tabletIndicatio ns:Hypertension associated with type 2 diabetes mellitus (HCC),Type 2 diabetes mellitus with hyperglycemia, without long-term current use of insulin (HCC) Take 1 tablet (40 mg total) by mouth daily 90 tablet 1 0 Active metoprolol (LOPRESSOR) 50 mg tablet Take 25 mg by mouth 2 (two) times a day Active insulin degludec (Tresiba FlexTouch U-200) 200 unit/mL (3 mL) insulin pen Inject 34 Units under the skin daily Active clonazePAM (KlonoPIN) 1 mg tablet 0 Active pregabalin (LYRICA) 50 mg capsule Take 50 mg by mouth 3 (three) times a day Active simvastatin (ZOCOR) 40 mg tabletIndicatio ns:Type 2 diabetes mellitus with hyperglycemia, without long-term current use of insulin (HCC) TAKE 1 TABLET NIGHTLY 90 tablet 0 Active Active Problems Problem Noted Date Diagnosed Date Hypertension associated with type 2 diabetes lance litus 03/19/2019 Assessment & Plan (03/22/2019 12:29 PM SUPERVISOR FURNACE ROOM): Stable. Cont. Current meds. Type 2 diabetes mellitus wit h hyperglycemia, without long-term current use of insulin 03/19/2019 Assessment & Plan (03/22/2019 12:30 PM SUPERVISOR FURNACE ROOM): Labs ordered, will follow. Class 1 obesity due to exces s calories with serious comorbidity and body mass index (BMI) of 33.0 to 33.9 in adult 03/19/2019 Postmenopausal 03/19/2019 Presence of intracranial shunt 03/19/2019 Overview (03/19/2019): Managed by neurosurgeon Atrial fibrillation 04/28/2018 Arthritis of right acromioclavicular joint 09/17 Rotator cuff syndrome 09/11/2017 Generalized anxiety disorder 05/15/2017 Lumbar radiculopathy 06/27/2016 Benign neoplasm of cerebral meninges 02/26/2014 Resolved Problems Problem Noted Date Diagnosed Date Resolved Date Acute thoracic back pain 03/19/2019 Disorder of bursae of shoulder region 03/19/2019 03/19/2019 Lumbar sprain 03/19/2019 03/19/2019 Supraspinatus tendon tear, l eft, subsequent encounter 08/20/2017 03/19/2019 Complete tear of right rotator cuff 07/23/2017 03/19/2019 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 05/17/2016 03/19/2019 Hyperlipidemia 09/06/2011 03/19/2019 Dyslipidemia 03/02/2009 03/19/2019 Immunizations Immunization Administration Dates Next Due Influenza, Quadrivalent, Split, Intramuscular ,12/22/2014 Influenza, Quadrivalent, Spl it, Preservative Free, Intramuscular 01/04/2016 Influenza, Trivalent, High D ose, Split, Preservative Free, Intramuscular 12/12/2017 Influenza, Trivalent, IM (MDV) 01/13/2014 Influenza, Unspecified 11/18/2018,11/06/2012 Pneumococcal Conjugate PCV 13 01/15/2018 Pneumococcal Polysaccharide PPV23 11/18/2018 Medical History Medical History Date Comments Dyslipidemia 03/02/2009 Social History Tobacco Use Types Packs/Day Years Used Date Smoking Tobacco: Former Cigarettes Q uit: 2014 PHQ-2 Answer Date Recorded PHQ-2 Score 0 03/19/2019 Personal Safety Answer Date Recorded Getting School Help Needed Not on file 05/04 Comments Unknown Sex and Gender Information Value Date Recorded Sex Assigned at Not on file Legal Sex Female 12:20 PM SUPERVISOR FURNACE ROOM Gender Identity Not on file Sexual Orientation Not on file Obstetrics History Last Filed Vital Signs Vital Sign Reading Time Taken Comments Blood Pressure 126/74 03/31/2019 2:59 PM SUPERVISOR FURNACE ROOM Pulse 73 03/19/2019 1:36 PM SUPERVISOR FURNACE ROOM Temperature 36.8 C (98.2 F) 03/19/2019 1:36 PM SUPERVISOR FURNACE ROOM Respiratory Rate 18 03/19/2019 1:36 PM SUPERVISOR FURNACE ROOM Oxygen Saturation 97% 03/19/2019 1:36 PM SUPERVISOR FURNACE ROOM Inhaled Oxygen Concentration - - Weight 89.4 kg (197 lb 1.6 oz) 03/31/2019 2:59 P M SUPERVISOR FURNACE ROOM Height 165.1 cm (5' 5 ) 03/31/2019 2:59 PM SUPERVISOR FURNACE ROOM Body Mass Index 32.8 03/31/2019 2:59 PM SUPERVISOR FURNACE ROOM Plan of Treatment Not on file Insurance [employer] MEDICARE Care Teams Garment Form Assembler Relationship Specialty Start Date End Date Sayda Ignacio MD Internal Medicine 03/19/19 Urbano Portillo MD Referring Physician Neurosurgery 03/19/19 Perry Fu DPM Referring Physician Podiatry 03/19/19 [place] [id number] [address] Consulting Physician Cardiology 03/19/19
--- OUTSIDE RECORDS SUMMARY | 2024-05-22 21:53 | XMS_ITS | Referral Summary ---
Author Organization [facility] Address [address] [place] [address] Care Team Providers Care Convalescent Sitter Name Role Phone Sayda Ignacio MD Unavailable [phone] Urbano Portillo MD Unavailable [phone] Perry Fu DPM Unavailable Carmel Tristan MD [...] 03/19/2019 Assessment & Plan (03/22/2019 12:29 PM SANDER MACHINE): Stable. Cont. Current meds. Type 2 diabetes mellitus wit h hyperglycemia, without long-term current use of insulin 03/19/2019 Assessment & Plan (03/22/2019 12:30 PM SANDER MACHINE): Labs ordered, will follow. Class 1 obesity [...] tear of right rotator cuff 07/23/2017 03/19/2019 terminal superintendent current use of insulin 05/17/2016 03/19/2019 Hyperlipidemia 09/06/2011 03/19/2019 Dyslipidemia 03/02/2009 03/19/2019 Immunizations Immunization Administration Dates Next Due Influenza, Quadrivalent, Split, Intramuscular ,12/22/2014 Influenza, Quadrivalent, Spl it, Preservative Free, Intramuscular 01/04/2016 Influenza, Trivalent, High D ose, Split, Preservative Free, Intramuscular 12/12/2017 Influenza, Trivalent, IM (MDV) 01/13/2014 Influenza, Unspecified 11/18/2018,11/06/2012 Pneumococcal Conjugate PCV 13 01/15/2018 Pneumococcal Polysaccharide PPV23 11/18/2018 Social History Tobacco Use Types Packs/Day Years Used Date Smoking Tobacco: Former Cigarettes Q uit: 2014 PHQ-2 Answer Date Recorded PHQ-2 Score 0 03/19/2019 Personal Safety Answer Date Recorded Getting School Help Needed Not on file 05/04 Comments Unknown Sex and Gender Information Value Date Recorded Sex Assigned at Not on file Legal Sex Female 12:20 PM SANDER MACHINE Gender Identity Not on file Sexual Orientation Not on file Last Filed Vital Signs Vital Sign Reading Time Taken Comments Blood Pressure 126/74 03/31/2019 2:59 PM SANDER MACHINE Pulse 73 03/19/2019 1:36 PM SANDER MACHINE Temperature 36.8 C (98.2 F) 03/19/2019 1:36 PM SANDER MACHINE Respiratory Rate 18 03/19/2019 1:36 PM SANDER MACHINE Oxygen Saturation 97% 03/19/2019 1:36 PM SANDER MACHINE Inhaled Oxygen Concentration - - Weight 89.4 kg (197 lb 1.6 oz) 03/31/2019 2:59 P M SANDER MACHINE Height 165.1 cm (5' 5 ) 03/31/2019 2:59 PM SANDER MACHINE Body Mass Index 32.8 03/31/2019 2:59 PM SANDER MACHINE Plan of Treatment Not on file Insurance [employer] MEDICARE Care Teams Convalescent Sitter Relationship Specialty Start Date End Date Sayda Ignacio MD Internal Medicine 03/19/19 Urbano Portillo MD Referring Physician Neurosurgery 03/19/19 Perry Fu DPM Referring Physician Podiatry 03/19/19 [place] [id number] [address] Consulting Physician Cardiology 03/19/19
--- OUTSIDE RECORDS SUMMARY | 2024-05-22 21:53 | XMS_ITS | Clinical Summary ---
Author Organization [facility] Address [facility] [place] [address] Care Team Providers Care Paper Guillotine Operator Name Role Phone Carmel Tristan MD Unavailable [phone] Santos Keller DO Primary Care Provider [phone] rUbano Taylor MD Unavailable [phone] Allergies Active Allergy Reactions Criticality Noted Date Comments Cefaclor Itching Low 03/19/2019 Hydromorphone Itching High 12/26/2010 Iodinated Contrast Media Itching Low 02/08/2011 Latex Itching,Rash Medium 03/29/2015 Morphine Itching,Other (see comment),Rash,Hives Medium 03/02/2009 Tape Rash Medium 03/29/2015 Medications apixaban 5 MG tablet Take 5 mg by mouth daily. Active clonazePAM 0.5 MG tablet Take 2 mg by mouth nightly. 8 Active empagliflozin 25 MG tablet Take 25 mg by mouth daily. Active estradiol 2 MG tablet Take 1 tablet by mouth daily. 8 Active glimepiride 2 MG tablet Take 2 mg by mouth daily. Active Glucose Blood (BLOOD GLUCOSE TEST STRIPS) Strip 1 strip by Does not apply route. 7 Active insulin degludec 200 UNIT/ML injection (PEN) Inject 30 Units into the skin nightly. Active metFORMIN 1000 MG tablet Take 1,000 mg by mouth 2 (two) times a day. 9 Active metoprolol tartrate 50 MG tablet Take 25 mg by mouth 2 (two) times daily. 1 Active mupirocin 2 % ointment Apply 1 Application topically daily as needed. 9 Active ibuprofen 600 MG tablet Take 600 mg by mouth every 6 (six) hours as needed for Pain. Active Family History Medical History Relation Comments Kidney Disease Brother Cancer Father Colon Cancer Father muscular dystrophy Mother Heart Disease Sister Relation Status Comments Brother Alive Daughter Alive Father (Age 67) [place] Mother (Age 60) Muscular dystr ophy Sister (Age 52) [place] Social History Tobacco Use Types Packs/Day Years Used Date Smoking Tobacco: Former Cigarettes 2014 Smokeless Tobacco: Never Comments:off and on for 30 y ears Alcohol Use Standard Drinks/Week Comments Not Currently 0 (1 standard drink = 0.6 oz pur e alcohol) Comments Unknown Sex and Gender Information Value Date Recorded Sex Assigned at Not on file Legal Sex 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 Gender Identity Not on file Sexual Orientation Not on file Last Filed Vital Signs Vital Sign Reading Time Taken Comments Blood Pressure 123/70 05/01/2019 12:34 PM CDT Pulse 62 05/01/2019 12:34 PM CDT Temperature 36.6 C (97.8 F) 05/01/2019 12:34 PM CDT Respiratory Rate 18 05/01/2019 12:34 PM CDT Oxygen Saturation 98% 05/01/2019 12:34 PM CDT Inhaled Oxygen Concentration - - Weight 89.6 kg (197 lb 8.5 oz) 05/01/2019 8:00 A M CDT Height 165.1 cm (5' 5 ) 04/23/2019 9:00 AM SHIPPING AND RECEIVING OPERATOR Body Mass Index 32.87 04/23/2019 9:00 AM SHIPPING 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 RECEIVING 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 Plan of Treatment Health Maintenance Due Date Last Done Comments Colorectal Cancer Screening Colonoscopy (10 Years) 1950 Hepatitis C 01/22/1970 DTaP, Tdap and Td Vaccines ( 1 - Tdap) 01/22/1971 Mammogram Screening 1992 Zoster Vaccines (1 of 2) 01/22/2002 Annual Medicare Wellness Visit 01/22/2017 Dexa Scan (General) 01/22/2017 COVID-19 Vaccine ( - 2023-2 5 season) 2023 RSV Immunization or 60+ Years (1 - 1-dose 75+ series) 01/22/2027 Pneumococcal Vaccine: 65+ Years Completed 11/18/2018, 01/15/2018, 02/26/2014 Meningococcal B Vaccine Aged Out No l onger eligible based on patient's age to complete this topic Meningococcal Vaccine Aged Out No owen maicol eligible based on patient's age to complete this topic RSV Immunizations Under 20 Months Aged Out No longer eligible b ased on patient's age to complete this topic Medical Devices Implanted Type Area Jacquard Card Lacer Device Identifier Shelf Expiration Date Model / Serial / Lot 3.0 X 16 Asnis Screw Implanted:Qty: 1 on 05/01/2019 by Perry Fu DPM at [facility] Screw Right: Foot [id number] / / 3.0 X 18 Asnis Screw Implanted:Qty: 1 on 05/01/2019 by Perry Fu DPM at [facility] Screw Right: Foot [employer] [id number] / / Osteosynthesis Compression Staple Implanted:Qty: 1 on 05/01/2019 by Perry Fu DPM at [facility] Staple Right: Foot [employer] 12/19/2023 [id number] / / [id number] Description:COMPRESSION STAP LE Insurance [employer] Care Teams Paper Guillotine Operator Relationship Specialty Start Date End Date Santos Keller DO [address] [facility] [address] [place] [id number] PCP - General INTERNAL MEDICINE 04/23/19 [place] [address] [place] [address] CARDIOVASCULAR DISEASE 04/23/19 Urbano Taylor MD [address] [place] [address] NEUROLOGICAL SURGERY 04/23/19
--- OUTSIDE RECORDS SUMMARY | 2024-05-22 21:53 | XMS_ITS ---
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 It feels as though she is walking on a rock. 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 Discussed conservative care consisting of padding, wider shoes, anti-inflammator ies, and orthotics. Discussed surgical treatment options and answered all questions about the intra-operative and post-operative treatment course. Recommend the patient have a cortisone injection in her neuroma after her back has had an injection and her doctor treating this would say it would be alright; as the patient has had mutliple cortisone injections recently 10/28/2023 Metatarsalgia of right foot (ICD-10 - M77.41) 10/28/2023 Tinea unguium (ICD-10 - B35.1) FUNGAL TOENAILS: Discussed various treatment options for fungal toenails including debridement, topical antifungals, oral antifungals, toenail avulsion, or toenail matrixectomy. NAIL DEBRIDEMENT: Nails 1-5 Bilateral were debrided extensively with nail nippers and emery board, reducing length and girth to pink healthy tissue with any subungual debris and necrotic tissue removed 10/28/2023 Pain in right foot (ICD-10 - M79.671) Plan Of Treatment Treatment Notes Assessment Notes Lesion of plantar nerve, right lower klein b Neuroma: Discussed various treatments with the patient regarding neuroma. Discussed conservative care consisting of padding, wider shoes, anti-inflammatories, and orthotics. Discussed surgical treatment options and answered all questions about the intra-operative and post-operative treatment course. Recommend the patient have a cortisone injection in her neuroma after her back has had an injection and her doctor treating this would say it would be alright; as the patient has had mutliple cortisone injections recently Tinea unguium FUNGAL TOENAILS: Discussed various treatment options for fungal toenails including debridement, topical antifungals, oral antifungals, toenail avulsion, or toenail matrixectomy. NAIL DEBRIDEMENT: Nails 1-5 Bilateral were debrided extensively with nail nippers and emery board, reducing length and girth to pink healthy tissue with any subungual debris and necrotic tissue removed Next Appt Details Follow Up: 10 weeks or prn, Reason: 10 weeks: at risk care; prn for cortisone injection when it was safe to do so Progress Notes * ANNEMARIE MANZANO RDOB:[birth year] (74 yo F)Acc No.[id number]:10/28/2023 Patient: ANNEMARIE ROUSSEAU Provider: Ibis Mason DPM :1950 A ge:73 Y S ex:Female Date:10/28/2023 Address:[address] [place] [address] Subjective: * Chief Complaints: * 1 . 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 It feels as though she is walking on a rock. She has had a cortisone injection in her shoulder and knee recently, and is going to have an injection in her back tomorrow. * HPI: H PI: General care P santi presents to the office for diabetic foot care. Patient states that their nails are thickened, elongated and painful. Patient states that it is aggravated by shoe gear. Onset is gradual., Patient is taking prescription blood thinners., Date last seen by Dr. Keller was 09/2023., Initials mca. N ew Complaint E stablished patient presents with a new complaint., Patient complains of an issue to the right foot and ankle. Patient states that it feels like she is walking on a rock again in the ball of the right foot. She has had similar issues in the past but recently had a knee replacement, so she is not sure if that could be the cause of her pain. , MA: [facility]. * ROS: G eneral / Constitutional: Patient [...] Pharmacist: Medrol DosepakOriginal MedicationMedrol Dosepak *Reorder from [facility] for eRx and Interaction Alerts*, Taking methylPREDNISolone [...] 3rd and 4th toes of the right foot. Assessment: * Assessment: 1. L esion of plantar nerve, right lower limb - G57.61 (Primary) 2 . M etatarsalgia of right foot - M77.41 3 . T inea unguium - B35.1 4 .?Pain in right foot - M79.671 Plan: * Treatment: 2. T inea unguium Notes: FUNGAL TOENAILS: Discussed various treatment options for fungal toenails including debridement, topical antifungals, oral antifungals, toenail avulsion, or toenail matrixectomy. NAIL DEBRIDEMENT: Nails 1-5 Bilateral were debrided extensively with nail nippers and emery board, reducing length and girth to pink healthy tissue with any subungual debris and necrotic tissue removed * Follow Up: 1 0 weeks or prn (Reason: 10 weeks: at risk care; prn for cortisone injection when it was safe to do so) * Billing Information: * Visit Code: 70757 Office Visit, Est Pt., Level 3. * Procedure Codes: * Sign off status: Completed true * Provider: Ibis Mason DPM Date: 0 10/28/2023 Generated for [place] rosales/Sera/eTabelsmitting on: 0 05/22/2024 09:53 PM CDT History and Physical Notes * HPI (History of Present Illness) Category Sub-Category Detail Notes Category Not es HPI General care Patient presents to the office for diabetic foot care. Patient states that their nails are thickened, elongated and painful. Patient states that it is aggravated by shoe gear. Onset is gradual., Patient is taking prescription blood thinners., Date last seen by Dr. Keller was 09/2023., Initials mca New Complaint Established patient presents with a new complaint., Patient complains of an issue to the right foot and ankle. Patient states that it feels like she is walking on a rock again in the ball of the right foot. She has had similar issues in the past but recently had a knee replacement, so she is not sure if that could be the cause of her pain. , MA: [facility] Examination Category Sub-Category Detail Notes Category [...] 3rd and 4th toes of the right foot Constitutional Constitutional The patient is a wake, alert, well developed, well groomed and well nourished
--- OUTSIDE RECORDS SUMMARY | 2024-05-22 21:53 | XMS_ITS | CONTINUITY OF CARE DOCUMENT ---
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 Carmel Tristan MD Atrial fib paroxysmal active Carmel Dunlap HTN essential--echo ef nl, 05/2022 active Abhishek Buchanan Hyperlipidemia active Carmel Tristan MD Anxiety disorder active Carmel Tristan MD Asthma active Carmel Tristan MD Diabetes mellitus active Carmel Tristan MD Fatigue active Carmel Tristan MD IBS (irritable bowel syndrome) active Chelsea Tristan MD mild CAD - cath 06/2018 active Carmel Tristan MD Preoperative cardiovascular evaluation--knee replacement completed - Carmel Tristan MD CLEMENT--mild, cant tolerate cpap active Abhishek allen ENCOUNTERS Date Type Provider Location Encounter Diag nosis - In-person encounter Office Visit Carmel Tristan MD [facility] - In-person encounter Office Visit Carmel Tristan MD [facility] - In-person encounter Office Visit Carmel Tristan MD [facility] HTN essential--echo ef nl, 05/2022OSA--mild, cant tolerate cpap - In-person encounter Office Visit Carmel Tristan MD [facility] Preoperative cardiovascular evaluation--knee replacement - In-person encounter Office Visit Carmel Tristan MD [facility] HTN essential--echo ef nl, 05/2022 - In-person encounter Office Visit Carmel Tristan MD [facility] - In-person encounter Office Visit Carmel Tristan MD [facility] - In-person encounter Office Visit Carmel Tristan MD [facility] - In-person encounter Office Visit Carmel Tristan MD [facility] mild CAD - cath 06/2018 - In-person encounter Office Visit Carmel Tristan MD [facility] IBS (irritable bowel syndrome) - In-person encounter Office Visit Carmel Tristan MD [facility] Family History Coronary Heart Disease female < 65:Atrial fib paroxysmalHTN essential--echo ef nl, 05/2022HyperlipidemiaAnxiety disorderAsthmaDiabetes mellitusFatigue VITAL SIGNS Date Observation Value Provider Body Mass Index (Ratio) 29.34 kg/m2 Abhishek Buchanan blood pressure, diastolic 88 mm[Hg] Nabil salvador [place] blood pressure, systolic 138 mm[Hg] Vanessa bryan [place] pulse rate 111 /[facility]8 [lb_av] [facility] [place] oxygen saturation, oximetry 94 % [facility] [place] blood pressure, cuff size regular Nabil salvador [place] height E&M 66 [in_i] Marily Peñaloza Body Mass Index (Ratio) 29.86 kg/m2 Reid Tristan MD blood pressure, diastolic 72 mm[Hg] Li nkLogbhavani blood pressure, systolic 119 mm[Hg] Magui kLic blood pressure, cuff size regular Ja rret blood pressure, diastolic 72 mm[Hg] Ja rret blood pressure, systolic 119 mm[Hg] Jar ret pulse rate 94 /min oxygen saturation, oximetry 97 % respiratory rate E&M 16 /min weight E&M 185 [lb_av] Frank height E&M 66 [in_i] Frank y Body Mass Index (Ratio) 29.70 kg/m2 Gracerandy Wallacee blood pressure, cuff size regular Ja rr blood pressure, diastolic 77 mm[Hg] Ja rret blood pressure, systolic 117 mm[Hg] Jar ret pulse rate 70 /min Frank respiratory rate E&M 12 /min oxygen saturation, oximetry 97 % weight E&M 184 [lb_av] Frank y height E&M 66 [in_i] Frank y Body Mass Index (Ratio) 30.82 kg/m2 Reid Tristan MD blood pressure, diastolic -1 mm[Hg] Ciara nkLogbhavani blood pressure, systolic 149 mm[Hg] Magui kLogbhavani blood pressure, diastolic 86 mm[Hg] Elizabeth Cruz blood pressure, systolic 149 mm[Hg] Any a Anthony oxygen saturation, oximetry 94 % Pushpa Anthony pulse rate 778 /min Pushpa Anthony weight E&M 191 [lb_av] Pushpa Anthony blood pressure, cuff size large An constance Anthony height E&M 66 [in_i] Pushpa Anthony Body Mass Index (Ratio) 30.66 kg/m2 Grace ssa Puhse blood pressure, diastolic 56 mm[Hg] Sa ra Coy blood pressure, systolic 106 mm[Hg] Vernell a Coy oxygen saturation, oximetry 97 % Ruth Coy respiratory rate E&M 17 /min Ruth Si ms pulse rate 63 /min Ruth Coy blood pressure, cuff size regular Sa ra Coy weight E&M 190 [lb_av] Ruth Coy height E&M 66 [in_i] Ruth Coy Body Mass Index (Ratio) 31.15 kg/m2 Reid Tristan MD blood pressure, diastolic 79 mm[Hg] nkLogic blood pressure, systolic 129 mm[Hg] Magui kLogic blood pressure, diastolic 79 mm[Hg] Sa ra Coy blood pressure, systolic 129 mm[Hg] Vernell a Coy oxygen saturation, oximetry 96 % Ruth Coy respiratory rate E&M 17 /min Ruth Si ms pulse rate 76 /min Ruth Coy blood pressure, cuff size regular Sa ra Coy weight E&M 193 [lb_av] Ruth Coy height E&M 66 [in_i] Ruth Coy Body Mass Index (Ratio) 31.31 kg/m2 Reid Tristan MD blood pressure, cuff size regular Cy jake Cordon blood pressure, diastolic 74 mm[Hg] Cy jake Cordon blood pressure, systolic 132 mm[Hg] Lizzie ghassan Cordon oxygen saturation, oximetry 96 % Elizabeth Cordon pulse rate 86 /min Elizabeth yan respiratory rate E&M 16 /min Elizabeth Cordon weight E&M 194 [lb_av] Elizabeth Weirbel l height E&M 66 [in_i] Elizabeth Weirbel l Body Mass Index (Ratio) 31.47 kg/m2 Reid Tristan MD blood pressure, diastolic 80 mm[Hg] Br [facility] Block blood pressure, systolic 138 mm[Hg] Dee Dee jauqan Block pulse rate 100 /min Ruth Block oxygen saturation, oximetry 97 % Ruth Block weight E&M 195 [lb_av] Ruth Block blood pressure, resting Yes Brit julia Block respiratory rate E&M 16 /min [facility] height E&M 66 [in_i] Ruth Block Body Mass Index (Ratio) 32.12 kg/m2 Reid Tristan MD blood pressure, resting Yes Tons huang Waggoner blood pressure, diastolic 71 mm[Hg] To nsha Waggoner blood pressure, systolic 113 mm[Hg] Ton sha Waggoner oxygen saturation, oximetry 96 % Tonsha Waggoner respiratory rate E&M 16 /min Tonsha Waggoner pulse rate 80 /min Tonsha Waggoner weight E&M 199 [lb_av] Tonsha Waggoner height E&M 66 [in_i] Tonsha Waggoner temperature site temporal [employer] sley temperature E&M 96.4 [degF] Love Tanks latisha Body Mass Index (Ratio) 32.12 kg/m2 Reid Tristan MD blood pressure, cuff size regular [place] blood pressure, diastolic 80 mm[Hg] Cr [place] blood pressure, systolic 120 mm[Hg] Cry stal Anthony oxygen saturation, oximetry 97 % Violette Cruz respiratory rate E&M 17 /min Violette Cruz pulse rate 89 /min Violette garay weight E&M 199 [lb_av] Violette Lynn s height E&M 66 [in_i] Violette Lynn s Body Mass Index (Ratio) 33.41 kg/m2 Reid Tristan MD blood pressure, diastolic 70 mm[Hg] Da ciera Navid blood pressure, systolic 128 mm[Hg] Dac ia Navid oxygen saturation, oximetry 93 % Pita Navid respiratory rate E&M 16 /min Pita V oss pulse rate 92 /min Pita Navid weight E&M 207 [lb_av] Pita Navid height E&M 66 [in_i] Pita Navid ALLERGIES Allergy Name Onset Date Reaction Criticality Status TAPE High Criticality active DILAUDID High Criticality active MORPHINE High Criticality active RESULTS Date Observation Value Provider Reference Range Interpretation Location 4 hemoglobin A1C, blood, as % of total hemoglobin 9.2 % [facility] 4.8-5.6 High 4 basophil count, absolute 0.1 x10E3/uL [facility] 0.0-0.2 4 Eosinophil Absolute Count 0.4 X10E3/UL [facility] 0.0-0.4 4 monocyte count, blood, automated 0.6 X10E3/UL [facility] 0.1-0.9 4 lymphocyte count, blood, automated 2.7 X10E3/UL [facility] 0.7-3.1 4 Absolute Neutrophils 7.6 X10E3/UL [facility] 1.4-7.0 High 4 basophils as percent of blood leukocytes 1 % [facility] Not Estab. 4 eosinophils as percent of blood leukocytes 4 % [facility] Not Estab. 4 monocytes as percent of blood leukocytes 5 % [facility] Not Estab. 4 lymphocytes as percent of blood leukocytes 23 % [facility] Not Estab. 4 neutrophils as percent of blood leukocytes 67 % [facility] Not Estab. 4 platelet count 339 X10E3/UL [facility] 644-832 1803/03/0 4 red blood cell distribution width 14.1 % [facility] 11.7-15.4 4 mean corpuscular hemoglobin concentration, RBC 32.4 G/DL [facility] 31.5-35.7 4 mean corpuscular hemoglobin, RBC 27.8 pg [facility] 26.6-33.0 4 mean corpuscular volume, RBC 86 fL [facility] 79-97 4 hematocrit, blood 41.4 % [facility] 34.0-46.6 4 hemoglobin, blood 13.4 g/dL [facility] 11.1-15.9 4 erythrocyte (RBC) count 4.82 X10E6/UL [facility] 3.77-5.28 4 leukocyte count, blood 11.5 X10E3/UL [facility] 3.4-10.8 High 4 lipoprotein, beta, serum, point, quantitative, calculated 70 mg/dL [facility] 0-99 4 HDL cholesterol, serum 46 mg/dL [facility] >39 4 triglyceride, serum, random 132 mg/dL [facility] 0-149 4 cholesterol, serum 139 mg/dL [facility] 129-022 7421/03/0 4 alanine aminotransferase (SGPT), serum 21 1/L [facility] 0-32 4 aspartate aminotransferase (SGOT), serum 23 1/L [facility] 0-40 4 alkaline phosphatase, serum 71 1/L [facility] 39-117 4 bilirubin, serum, total 0.3 mg/dL [facility] 0.0-1.2 4 albumin/globulin ratio, serum 1.5 [facility] 1.2-2.2 4 globulin, serum 2.8 [facility] 1.5-4.5 4 albumin, serum 4.2 g/dL [facility] 3.8-4.8 4 protein, total, serum 7.0 g/dL [facility] 6.0-8.5 4 calcium, serum 9.3 mg/dL [facility] 8.7-10.3 4 carbon dioxide, venous blood 25 mmol/L [facility] 20-29 4 chloride, serum 102 mmol/L [facility] 96-106 4 potassium, serum 5.2 mmol/L [facility] 3.5-5.2 4 sodium, serum 142 mmol/L [facility] 791-782 1561/03/0 4 urea nitrogen/creatinine ratio, serum 22 [facility] 12-28 4 eGFR if 84 mL/min/{1 .73_m2} [facility] >59 4 eGFR if not 73 mL/min/{1 .73_m2} [facility] >59 4 creatinine, serum 0.83 mg/dL [facility] 0.57-1.00 4 urea nitrogen, blood 18 mg/dL [facility] 8-27 4 blood glucose, random 147 mg/dL [facility] 65-99 High HISTORY OF MEDICATION USE Medication Status Instructions Dates Provider Indications Com ments trazodone 100 mg tablet active Carmel Tristan MD Tradjenta 5 mg tablet active Carmel Tristan MD lisinopril 40 mg tablet active Take 1 tablet by mouth once a day María Briggs simvastatin 40 mg tablet active Abhishek Buchanan Gemtesa 75 mg tablet active Take 1 tablet by mouth once a day Carmel Tristan MD Novolog FlexPen U-100 Insulin 100 unit/mL (3 mL) insulin pen active INJECT 80 UNITS UNDER THE SKIN EVERY DAY Abhishek Buchanan Jardiance 25 mg tablet active TAKE 1 TABLET ONCE DAILY Sally Frederick metoprolol tartrate 25 mg tablet active TAKE 1 TABLET TWICE A DAY Frank Perez glimepiride 4 mg tablet active Take 1 tablet by mouth once a day Carmel Tristan MD gabapentin 300 mg capsule active Take 1 capsule by mouth twice a day Carmel Tristan MD lisinopril 40 mg tablet completed TAKE 1 TABLET ONCE DAILY - María Briggs Eliquis 5 mg tablet active TAKE 1 TABLET TWICE A DAY Carmelita Man Victoza 2-Nelson 0.6 mg/0.1 mL (18 mg/3 mL) pen injector completed Inject subcutaneously once a day - Abhishek Buchanan #9, 60 days supply, Prescribed by RAZA RODRIGUEZ, Filled 10/19/2019 Tresiba U-100 Insulin 100 unit/mL solution active 30 unit once a day Carmel Tristan MD Jardiance 25 mg tablet completed Take 1 tablet by mouth once a day - María Briggs buspirone 5 mg tablet active 1 tablet by mouth twice a day Elizabeth Cordon cephalexin 500 mg capsule completed capsule by mouth - Abhishek Buchanan #9, 3 days supply, Prescribed by IVAN MASON, Filled 05/11/2019 doxepin 10 mg capsule active Take 1 capsule by mouth once a day Elizabeth Cordon #30, 30 days supply, Prescribed by SONALI GAMING, Filled 07/15/2019 lisinopril 40 mg tablet completed Take 1 tablet by mouth once a day - Chanel Bertrand glimepiride 2 mg tablet completed Take 1 tablet by mouth twice a day - Abhishek Buchanan metformin 500 mg tablet active Take 2 tablet by mouth twice a day Elizabeth Cordon Eliquis 5 mg tablet completed Take 1 tablet by mouth twice a day - Pita Shoemaker clonazepam 1 mg tablet active Take 1 tablet by mouth once a day Pitamarcela Shoemaker simvastatin 40 mg tablet completed Take 1 tablet by mouth every night - Harinder Gonzales RN Lyrica 50 mg capsule completed Take 1 capsule by mouth single dose as needed - Carmel Tristan MD Estrace 2 mg tablet completed Take 1 once a day - Carmel Tristan MD escitalopram oxalate 20 mg tablet active Take 1 tablet by mouth once a day Pita Navid metoprolol tartrate 25 mg tablet completed Take 1 tablet twice a day TAKE 1/2 TABLET BY MOUTH TWICE DAILY - Carmel Tristan MD SOCIAL HISTORY Date Observation Value Provider alcohol use no Abhishekdelmis Farris smoking, year quit 2015 Abhishek hall smoking history, tot al pack/day 1.5 Abhishekdelmis Buchanan cigarette use yes Abhishekdelmis Buchanan smoking status Former smoker Abhishek Farris i alcohol use no Abhishekdelmis Buchanan smoking, year quit 2015 Abhishek Mcadams [facility] smoking history, tot al pack/day 1.5 Abhishekdelmis Buchanan cigarette use yes Abhishekdelmis Buchanan smoking status Former smoker Abhishek Farris i social history reviewed E&M jayson picketted - no changes required Abhishek Buchanan smoking, year quit 2015 Pushpa Will iams smoking history, tot al pack/day 1.5 Pushpaju Cruz cigarette use yes Pushpa Cruz smoking status Former smoker Pushpa garay social history E&M S moking History: Nitin hancock is a former smoker. Abhishek Buchanan social history reviewed E&M revi ewed - no changes required Carmel Tristan MD social history reviewed E&M revi ewed - no changes required Abhishek Buchanan social history reviewed E&M revi ewed - no changes required Carmel Tristan MD social history E&M S moking History: Nitin hancock is a former smoker. Ruth Guillermo social history reviewed E&M revi ewed - no changes required Ruth Guillermo smoking, year quit 2015 Elizabeth walker smoking history, tot al pack/day 1.5 Elizabeth Cordon cigarette use yes Elizabeth Donell kline smoking status Former smoker Elizabeth Weir hang social history E&M S moking History: Nitin hancock is a former smoker. Carmel Tristan MD social history reviewed E&M revi ewed - no changes required Carmel Tristan MD smoking, year quit 2015 Ruth Block smoking history, tot al pack/day 1.5 Ruth Block cigarette use yes Ruth Block smoking status Former smoker Ruth Sean crump social history reviewed E&M revi ewed - no changes required Carmel Tristan MD smoking, year quit 2015 Tonsha Mo ss smoking history, tot al pack/day 1.5 Tonsha Waggoner cigarette use yes Tonsha Waggoner smoking status Former smoker Tonsha Waggoner alcohol use no Carmel Tristan MD smoking, year quit 2015 Carmel antoine MD smoking history, tot al pack/day 1.5 Carmel Tristan MD smoking status Former smoker Carmel Tristan MD social history E&M S moking History: Nitin hancock is a former smoker. Carmel Tristan MD social history reviewed E&M revi ewed - no changes required Carmel Tristan MD cigarette use yes Violette Montejo ms social history reviewed E&M revi ewed - no changes required Carmel Tristan MD social history E&M S moking History: Nitin hancock is a former smoker. Carmel Tristan MD number of grandchildren Carmel Tristan MD T christopher Tristan MD alcohol use no Pita Navid smoking, year quit 2015 Pita Rosa s smoking history, tot al pack/day 1.5 Pita Navid cigarette use yes Pita Navid smoking status Former smoker Pita Navid FUNCTIONAL STATUS Date Observation Value Provider HRA, CV Assess/Plan, Angina (inactive) Management Plan continue current therapy Abhishek Buchanan HRA, CV Assess/Plan, Angina (inactive) Management Plan continue current therapy Abhishek Ahmedzai HRA, CV Assess/Plan, Angina (inactive) Management Plan continue current therapy Abhishek Ahmedzai HRA, CV Assess/Plan, Angina (inactive) Management Plan continue current therapy Abhishek Ahmedzai HRA, CV Assess/Plan, Angina (inactive) Management Plan continue current therapy Abhishek Ahmedzai HRA, CV Assess/Plan, Angina (inactive) Management Plan continue current therapy Ruth Li FAMILY HISTORY Family Member Condition Mother CO female <65 Full Sister Family History of Cedeño dden Cardiac : Full Sister Family History Coron govind Heart Disease female < 65: Father Family History of Co owen Cancer: INSURANCE PROVIDERS Payer name Policy type / Coverage type [place] [employer] party ID [employer] MED[employer]ARE [place] PPO Commercial insurance co sanjuanany [id number] ADVANCE DIRECTIVES Name Date DISCUSSED - NO DECISION MADE TREATMENT PLAN Date Name Performer [id number],Abhishek Garay i [id number],S, Abhishek Ahmedza i [id number],S, Abhishek Ahmedza i [id number],S, Abhishek Ahmedza i [id number],S, Abhishek Ahmedza i [id number],S, Abhishek Ahmedza i [id number],S, Abhishek Ahmedza i [id number],S, Abhishek Ahmedza i [id number],S, Abhishek Ahmedza i [id number],S, Abhishek Ahmedza i [id number],S, Abhishek Ahmedza i [id number],S, Abhishek Ahmedza i [id number],S, Abhishek Ahmedza i [id number],S, Abhishek Ahmedza i [id number],S, Abhishek Ahmedza i [id number],S, Abhishek Ahmedza i [id number],S, Abhishek Ahmedza i [id number],S, Abhishek Ahmedza i [id number],S, Abhishek Ahmedza i [id number],S, Abhishek Ahmedza i [id number],S, Abhishek Ahmedza i [id number],B, Carmel Tristan MD [id number],B, Carmel Tristan MD [id number],S, Carmel Tristan MD [id number],W, Carmel Tristan MD [id number],S, Carmel Tristan MD Cardiology:This visi t has been a part of the consistent, comprehensive, and ongoing management of the chronic medical condition(s) listed above for the patient. Her updated medication list for this problem includes: Metoprolol Tartrate 25 Mg Tablet (Metoprolol tartrate) ..... Take 1 tablet twice a day Lisinopril 40 Mg Tablet (Lisinopril) ..... Take 1 tablet by mouth once a day B P today: 138/88 P rior BP: 119/72 (06/17/2023) Labs Reviewed: C reat: 0.83 (04/21/2020) C hol: 139 (04/21/2020) HDL: 46 (04/21/2020) LDL: 70 (04/21/2020) T (04/21/2020) Carmel Tristan MD Cardiology Abhishek Buchanan Cardiology Abhishek Buchanan Cardiology: H er updated medication list for this problem includes: Metoprolol Tartrate 25 Mg Tablet (Metoprolol tartrate) ..... Take 1 tablet twice a day Lisinopril 40 Mg Tablet (Lisinopril) ..... Take 1 tablet by mouth once a day Abhishek Buchanan Cardiology: H er updated medication list for this problem includes: Metoprolol Tartrate 25 Mg Tablet (Metoprolol tartrate) ..... Take 1 tablet twice a day Lisinopril 40 Mg Tablet (Lisinopril) ..... Take 1 tablet by mouth once a day BP today: 138/88 P rior BP: 119/72 (06/17/2023) Labs Reviewed: C reat: 0.83 (04/21/2020) C hol: 139 (04/21/2020) HDL: 46 (04/21/2020) LDL: 70 (04/21/2020) T (04/21/2020) Abhishek Buchanan Cardiology: H er updated medication list for this problem includes: Glimepiride 4 Mg Tablet (Glimepiride) ..... Take 1 tablet by mouth once a day Tradjenta 5 Mg Tablet (Linagliptin) Jardiance 25 Mg Tablet (Empagliflozin) ..... Take 1 tablet once daily Lisinopril 40 Mg Tablet (Lisinopril) ..... Take 1 tablet by mouth once a day Novolog Flexpen U-100 Insulin 100 Unit/ml (3 Ml) Insulin Pen (Insulin aspart u-100) ..... Inject 80 units under the skin every day Metformin 500 Mg Tablet (Metformin) ..... Take 2 tablet by mouth twice a day Tresiba U-100 Insulin 100 Unit/ml Solution (Insulin degludec) ..... 30 unit once a day Abhishek Buchanan Cardiology Abhishek Buchanan Cardiology Carmel Tristan MD Cardiology Carmel Tristan MD Cardiology: H er updated medication list for this problem includes: Glimepiride 4 Mg Tablet (Glimepiride) ..... Take 1 tablet by mouth once a day Tradjenta 5 Mg Tablet (Linagliptin) Jardiance 25 Mg Tablet (Empagliflozin) ..... Take 1 tablet once daily Lisinopril 40 Mg Tablet (Lisinopril) ..... Take 1 tablet by mouth once a day Novolog Flexpen U-100 Insulin 100 Unit/ml (3 Ml) Insulin Pen (Insulin aspart u-100) ..... Inject 80 units under the skin every day Metformin 500 Mg Tablet (Metformin) ..... Take 2 tablet by mouth twice a day Tresiba U-100 Insulin 100 Unit/ml Solution (Insulin degludec) ..... 30 unit once a day Carmel Tristan MD Cardiology: H er updated medication list for this problem includes: Simvastatin 40 Mg Tablet (Simvastatin) Carmel Tristan MD Cardiology: H er updated medication list for this problem includes: Metoprolol Tartrate 25 Mg Tablet (Metoprolol tartrate) ..... Take 1 tablet twice a day Lisinopril 40 Mg Tablet (Lisinopril) ..... Take 1 tablet by mouth once a day Carmel Tristan MD Cardiology: H er updated medication list for this problem includes: Metoprolol Tartrate 25 Mg Tablet (Metoprolol tartrate) ..... Take 1 tablet twice a day Lisinopril 40 Mg Tablet (Lisinopril) ..... Take 1 tablet by mouth once a day Eliquis 5 mg BID Carmel Tristan MD Cardiology: H er updated medication list for this problem includes: Glimepiride 4 Mg Tablet (Glimepiride) ..... Take 1 tablet by mouth once a day Tradjenta 5 Mg Tablet (Linagliptin) Jardiance 25 Mg Tablet (Empagliflozin) ..... Take 1 tablet once daily Lisinopril 40 Mg Tablet (Lisinopril) ..... Take 1 tablet by mouth once a day Novolog Flexpen U-100 Insulin 100 Unit/ml (3 Ml) Insulin Pen (Insulin aspart u-100) ..... Inject 80 units under the skin every day Metformin 500 Mg Tablet (Metformin) ..... Take 2 tablet by mouth twice a day Tresiba U-100 Insulin 100 Unit/ml Solution (Insulin degludec) ..... 30 unit once a day Carmel Tristan MD Cardiology Abhishek [place]ose [place] Cardiology Abhishek Carlinmedzai Cardiology Abhishek Carlinmedzai Cardiology Abhishek Ahmedzai Cardiology Abhishek Ahmedzai Cardiology Abhishek Ahmedzai Cardiology Abhishek Ahmedzai Cardiology Abhishek Ahmedzai Cardiology Abhishek Ahmedzai Cardiology Abhishek Ahmedzai Cardiology Abhishek Ahmedzai Cardiology Abhishek Ahmedzai Cardiology Abhishek Ahmedzai Cardiology Abhishek Carlinmedzai Cardiology Abhishek Ahmedzai Cardiology Abhishek Ahmedzai Cardiology Abhishek Ahmedzai Cardiology Abhishek Ahmedzai Cardiology Abhishek Ahmedzai Cardiology Abhishek Ahmedzai Cardiology Abhishek Ahmedzai Cardiology followup Carmel Tristan MD Cardiology followup Carmel Tristan MD Cardiology followup Carmel Tristan MD Cardiology followup Carmel Tristan MD Cardiology followup Carmel Tristan MD Cardiology Carmel Tristan MD Cardiology Carmel Tristan MD Cardiology Carmel Tristan MD Cardiology Carmel Tristan MD Cardiology Carmel Tristan MD Cardiology Carmel Tristan MD Cardiology Carmel Tristan MD Cardiology Carmel Tristan MD Cardiology Carmel Tristan MD Cardiology Carmel Tristan MD Cardiology Carmel Tristan MD Cardiology Carmel Tristan MD Cardiology Carmel Tristan MD Cardiology Carmel Tristan MD [facility] hospital follow up To veronica Tristan MD Cardiology hospital follow up To veronica Tristan MD Cardiology hospital follow up To veronica Tristan MD Cardiology hospital follow up To veronica Tristan MD Date Name Complete Echo CBC (H/H, RBC, INDIC ES, WBC, PLT) HEMOGLOBIN A1c LIPID PANEL COMPREHENSIVE METABO LIC PANEL, W/EGFR COMPREHENSIVE METABO LIC PANEL, W/EGFR IRON AND TOTAL IRON BINDING CAPACITY FERRITIN CBC (INCLUDES DIFF/P LT) THYROID PANEL Stress Regadenoson Sleep Study Home HISTORY OF PROCEDURES Procedure Date Procedure Name Provider Procedure Notes S tatus Complex e/m visit add on Carmel Tristan MD completed EKG Carmel Tristan MD completed EKG Carmel Tristan MD completed EKG Carmel Tristan MD completed EKG Melissa Charles MD compl eted EKG Carmel Tristan MD completed Regadenoson, 4 units Carmel Tristan MD completed Cardiolite, 2 units Carmel Tristan MD completed SPECT Images Carmel Tristan MD complet ed Stress EKG Rudy Langford MD complete d EKG Carmel Tristan MD completed
--- OUTSIDE RECORDS SUMMARY | 2024-05-22 21:53 | XMS_ITS | Patient Health Record ---
Author Organization [facility] Address [address] [place], [place] [id number] Care Team Providers Care Party Demonstrator Name Role Phone IVAN MASON Unavailable [phone] Santos Keller Unavailable Unavailable Allergies No Known Allergies Reason For Referral No Information Medications Medication SIG (Take, Route, Frequency, Duration) Notes Start Date End Date Status Medrol Dosepak ORAL Medrol DosepakOriginal MedicationMedrol Dosepak *Reorder from Page[employer] for eRx and Interaction Alerts* 12/05/2020 Active methylPREDNISolone 4 MG as directed Orally Active Vital Signs Height-cm 165.10 cm 06/17/2023 Weight-kg 89.81 kg 06/17/2023 Height 65.00 in 06/17/2023 Weight 198 lbs 06/17/2023 BMI 32.95 kg/m2 06/17/2023 Encounters Encounter Location Date Provider Diagnosis [facility] [address] [place] [id number] 06/17/2023 IVAN SNOOK Other enthesopathy o f right foot and ankle M77.51 and Pain in right foot M79.671 [facility] [address] [place] [id number] 10/28/2023 IVAN SNOOK Lesion of plantar nerve, 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 ; Metatarsalgia of right foot M77.41 ; Tinea unguium B35.1 and Pain in right foot M79.671 [facility] [address] [place] [place], [place] [id number] 12/09/2023 IVAN SNOOK Lesion of plantar nerve, 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 ; Primary osteoarthritis, right ankle and foot M19.071 and Pain in right foot M79.671 Assessments Encounter Date Diagnosis (ICD Code) Assessment Notes Treatment Notes Treatment Clinical Notes Section Notes 06/17/2023 Pain in right foot (ICD-10 - M79.671) 06/17/2023 Other enthesopathy of right foot and ankle (ICD-10 - M77.51) Continue therapy for her knee and lower extremity. Dispensed sequential heel lifts and educated patient on their use and step increase 10/28/2023 Metatarsalgia of right foot (ICD-10 - M77.41) 12/09/2023 Lesion of plantar nerve, right lower [...] to the right 3rd interspace. 12/09/2023 Primary osteoarthritis, right ankle and foot (ICD-10 - M19.071) [...] was injected to the right sinus tarsi 10/28/2023 Lesion of plantar nerve, right lower [...] patient has had mutliple cortisone injections recently 12/09/2023 Pain in right foot (ICD-10 - M79.671) 10/28/2023 Tinea unguium (ICD-10 - B35.1) FUNGAL [...] foot (ICD-10 - M79.671) Plan Of Treatment No Information Insurance Providers Payer Name Payer Address Payer Phone Subscriber Number Group Number Insured Name Patient Relationship to Insured Coverage Start Date Coverage End Date [employer] [address] ELSA GARZA [phone] [id number] ANNEMARIE MANZANO Self - patient is the insured
--- OUTSIDE RECORDS SUMMARY | 2024-05-22 21:53 | XMS_ITS ---
Author Organization [facility] Address [address] [place], [place] [id number] Care Team Providers Care Newborn Photographer Name Role Phone IVAN MASON Unavailable [phone] Santos Keller Unavailable Unavailable REASON FOR VISIT Right Foot Check Encounters Encounter Location Date Provider Diagnosis [facility] [address] [place], [place] [id number] 07/08/2023 IVAN MASON Plan Of Treatment No Information Progress Notes * ANNEMARIE MANZANO RDOB:[birth year] (74 yo F)Acc No.[id number]:07/08/2023 Patient: Nitin ANNEMARIE LY Provider: Ibis Mason DPM :1950 A ge:73 Y S ex:Female Date:07/08/2023 Address:[address] [place], [place] [phone] Subjective: * Chief Complaints: * 1 . Right Foot Check. * Medical History: Objective: * Vitals: Assessment: Plan: * Treatment: * Billing Information: * Visit Code: * Procedure Codes: * Electronic signature of IVAN MASON DPM on 05/22/2024 at 09:53 PM CDT Sign off status: Pending * Provider: Ibis Mason DPM Date: 07/08/2023 Generated for Printi ng/Faxing/eTransmitting on: 05/22/2024 09:53 PM CDT
--- NOTE | 2024-05-22 22:09 | ED_ITS ---
HPI - Extremity Injury (Lower) General Chief Complaint: Extremity Injury, Lower Stated Complaint: knee pain Time Seen by Provider: 05/22/24 21:16 Source: patient and family (Daughter , son in law ) Mode of arrival: ambulatory Limitations: no limitations History of Present Illness HPI Narrative: Patient presents with right knee pain and swelling. She had a knee replacement performed in April [address] Lewis. She fell 2 weeks ago but had otherwise been doing fine without significant complaint pain. While out shopping today she felt something weird in her knee and then became painful particularly throughout the anterior and the lateral medial aspect this knee. She has not taken any pain medication prior to arrival but has been trying heat. She also does physical therapy. She denies any fevers, chills, or rash. She is chronically on Eliquis as anticoagulation for history of a DVT behind her left knee 40 years ago. She states that she has been compliant with his medication and denies running out missing any doses. Related Data Home Medications ?Medication ?Instructions ?Recorded ?Confirmed ?Last Taken ?Type empagliflozin 25 mg tablet 25 mg PO DAILY 04/15/23 05/22/24 11/10/23 History (Jardiance) vibegron 75 mg tablet (Gemtesa) 75 mg PO DAILY 04/15/23 05/22/24 11/10/23 History apixaban 5 mg tablet (Eliquis) 5 mg PO BID 07/28/23 05/22/24 11/08/23 History lisinopril 40 mg tablet 40 mg PO DAILY 11/04/23 05/22/24 11/10/23 History metoprolol tartrate 25 mg tablet 25 mg PO BID 11/04/23 05/22/24 11/11/23 History escitalopram oxalate 20 mg tablet 18 mg PO HS 05/22/24 05/22/24 Unknown History Allergies Allergy/AdvReac Type Severity Reaction Status Date / Time adhesive tape Allergy Intermediate Blister Verified 05/22/24 21:21 hydromorphone (From Dilaudid) Allergy Intermediate Itching Verified 05/22/24 21:21 morphine Allergy Intermediate Itching Verified 05/22/24 21:21 [facility] Past Medical History Medical History Liver abscess Bacteremia Septic shock Pneumobilia Sepsis Fluid overload Dyspnea Acute hypoxic respiratory failure SIRS (systemic inflammatory response syndrome) Fungal dermatitis Chest pain Elevated LFTs Hematoma of right thigh Adult failure to thrive DVT (deep venous thrombosis) (~1979) LLE Type 2 diabetes mellitus Colon polyps Urinary incontinence Osteopenia CAD (coronary artery disease) TIA (transient ischemic attack) Postmenopausal Diabetic neuropathy Visceral hypersensitivity syndrome Costochondritis Hyperlipidemia Obesity Back pain A-fib Leukocytosis Insomnia Trigeminal neuropathy Generalized pruritus Hypertension Arthritis Anxiety Thyroid disorder IBS (irritable bowel syndrome) Depression Asthma Allergies Back injury L5 SI injection Brain bleed (2) Surgical History Surgical History History of right knee surgery Dr Lewis April 2023 Hx laparoscopic cholecystectomy 06/2023 complicated by bile leak, bile peritonitis Status post cholecystectomy History of surgery of head placement of shunt History of back surgery H/O: hysterectomy H/O foot surgery Left and right H/O knee surgery Left Family History Family History Mother , unknown cause Muscular dystrophy Father Carcinoma of colon Grandparent Acute myocardial infarction Ruptured appendix Sibling Acute myocardial infarction <65yo Social History Social History Smoking packs per day: 1 Smoking cigarettes per day: 20.0 Years smoked: 3 Smoking pack-years: 3.00 Smoking status: Former smoker Tobacco type: cigarettes Second hand tobacco smoke exposure: Yes () Additional smoking assessment comments: DENIES ANY FORM OF TOBACCO USE Alcohol intake: never Substance use: never Substance use type: does not use Do You Feel Safe in your Home?: Yes Lack of Transportation: No Lack of Food: Never True Current Housing: I Have Housing Concerned About Future Housing: No Difficulty Paying Gas/Electric Bills: No Difficulty Paying for Meds: No Currently Unemployed: No Education: High School Diploma/GED Difficulty w/ Childcare or Family Care: YES Living arrangements: with family Occupation/Education: retired 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 HEAD: Normocephalic, atraumatic. EYES: Non injected, non icteric ENT: Nares clear, no rhinorrhea or epistaxis. NECK: Supple. CHEST: Speaking in full sentences. No respiratory distress. HEART: Regular rate and rhythm. . ABDOMEN: Soft, nondistended. EXTREMITIES: No lower extremity edema. Mild tenderness to palpation throughout the anterior and medial aspect as well as lateral aspect of right knee joint. There does initially appear to be swelling compared to the left however no discrete effusion is palpable. She has ability to demonstrate ankle dorsiflexion and plantar flexion. She is able to demonstrate the ability to perform some slight bending and flexing at the knee although full range of motion limited secondary to pain. This is done both actively and passively. SKIN: Warm, dry, no rash. No overlying erythema or induration or appreciable abscess. Knee does feel slightly warmer compared to the left knee. NEURO: No focal deficits. Alert and oriented x3. Sensation intact throughout. PSYCH: Normal mood and affect. Course Vital Signs Vital signs: Vital Signs Temperature 98.4 F 05/22/24 21:16 Pulse Rate 85 05/22/24 21:16 Respiratory Rate 20 05/22/24 21:16 Blood Pressure 94/72 L 05/22/24 21:16 Pulse Oximetry 98 05/22/24 21:16 Oxygen Delivery Room Air 05/22/24 21:16 Temperature 98.4 F 05/22/24 21:16 Pulse Rate 85 05/22/24 23:45 Respiratory Rate 16 05/22/24 23:45 Blood Pressure 117/70 05/22/24 23:45 Pulse Oximetry 99 05/22/24 23:45 Oxygen Delivery Room Air 05/22/24 21:16 MDM - Extremity Injury (Lower) MDM Narrative Medical decision making narrative: Patient presents with right knee pain and swelling. She has a history of knee replacement in this joint in April [address] Lewis as orthopedic surgeon. She has been undergoing physical therapy. She did sustain a fall 2 weeks ago although had been doing well until today when she felt something strange and pain in her knee while out shopping. No acute trauma otherwise though. In the emergency department she is afebrile vital signs notable for hypotension but with MAP 79mmHg. X-ray negative for acute process . Had initially consider performing diagnostic and therapeutic arthrocentesis however performed point of care ultrasound at bedside and although patient has enlargement around this knee, no significant pocket of fluid amenable to tap. Mild leukocytosis. Mild hyperglycemia with no anion gap acidosis. ESR normal. CRP normal. Patient lists allergies to opiate medications however she states that the reaction is itching and if she receives diphenhydramine she does not have this reaction. Medication ordered for patient. We reviewed the limitations of plain film x-ray and that there is still possibility for the injuries as described below. Recommended conservative treatment with rest, ice, compression, and elevation as well as analgesic medication in the form of acetaminophen but to avoid NSAIDs given patient is on Eliquis. Advised follow-up with orthopedic surgeon as she may require alternative pain medication, different physical therapy, advanced imaging such as MRI (which she states would require coordinated care as it would require that her shunt be manipulated). Dr Lewis has performed surgery on this extremity so advised follow up with him. She states there were issues so she would prefer to see Dr Ibanez, it seems he had performed surgery on her brother (and possibly helped her work up her should pain? unclear). I noted the limitations of my ability to refer but did note that I also provide contact information for the orthopedic surgeon contractor [employer] on this date as options for follow up but often surgeons take ownership over their work/joints. Differential Diagnosis Differential diagnosis: Likely other (Hardware malfunction/derangement, osteomyelitis, septic arthritis, effusion, inflammation; ligamentous injury, meniscal tear; low suspicion for DVT givne patient chronically anticoagulated) Lab Data Attestation: I reviewed the patient's lab results. 05/22/24 23:46 05/23/24 00:27 Labs: Lab Results 05/22/24 05/23/24 Range/Units 23:46 00:27 WBC 12.7 H (4.5-10.0) K/mm3 RBC 4.76 (4.2-5.4) M/mm3 Hgb 13.1 (12.0-15.0) g/dL Hct 42.8 (37.0-47.0) % MCV 89.9 (80-100) fl MCH 27.5 (26-34) pg MCHC 30.6 L (32-36) g/dl RDW 16.3 H (11.5-14.5) % Plt Count 331 (150-375) k/mm3 MPV 11.3 H (7.4-10.4) fl Immature Gran % (Auto) 0.5 (0-0.5) % Neut % (Auto) 70.9 (45.5-73.1) % Lymph % (Auto) 19.4 (18.3-44.2) % [place] % (Auto) 6.2 (2.6-8.5) % Eos % (Auto) 2.2 (0-4.4) % Baso % (Auto) 0.8 (0.2-1.2) % Lymph # (Auto) 2.46 (0.9-3.2) K/mm3 [place] # (Auto) 0.8 H (0.1-0.6) K/mm3 Eos # (Auto) 0.3 (0-0.3) K/mm3 Baso # (Auto) 0.1 (0.0-0.1) K/mm3 Abs Immat Gran (auto) 0.06 H (0.00-0.031) K/mm3 Absolute Neuts (auto) 9.0 H (1.3-6.7) K/mm3 Absolute Nucleated RBC 0.000 (0.0-0.012) K/mm3 Nucleated RBC % 0.0 (0.0-0.2) % ESR 14 (0-20) mm/hr Sodium 140 (137-145) mmol/L Potassium 4.2 (3.4-5.0) mmol/L Chloride 106 (98-107) mmol/L Carbon Dioxide 25 (22-30) mmol/L Anion Gap 9 (4-12) mmol/L BUN 27 H (7-17) mg/dL Creatinine 0.99 (0.7-1.0) mg/dL Estim Creat Clear Calc 48 ml/min Estimated GFR 55 L (59 - ) Glucose 137 H (65-110) mg/dL Calcium 9.1 (8.4-10.2) mg/dL C-Reactive Protein < 0.5 (<1.0) mg/dL Imaging Data Radiologist's impression: Impressions Knee X-Ray 05/22/24 22:02 IMPRESSION: No periprosthetic fracture is identified. No signs to suggest hardware loosening appreciated. Discharge Plan Discharge Clinical Impression: Acute pain of right knee, Chronic anticoagulation, Leukocytosis Patient Disposition: Home, Self-Care Condition: Stable Instructions: Antibiotic Form, Leukocytosis (ED), Swollen Knee Joint (ED), Knee Pain (ED), P.R.I.C.E. Treatment (ED) Additional Instructions: As we discussed, the cause of your pain is unclear. The hardware looks intact on the x-ray. There was no prominent effusion on bedside ultrasound. It is possible that this represents a ligamentous injury or other pathology. Trial R-I-C-E (rest, ice, compression, and elevation). Because you are on Eliquis, you are not to take any NSAIDs which are medications like ibuprofen, Advil, Aleve, Motrin, Naprosyn. However, it is safe to take a maximum of 4000 mg per day of acetaminophen/Tylenol. Follow-up with orthopedic surgery. You may need alternative pain medicine, physical therapy, advanced imaging, etc.. Return to the emergency department with any new or worsening symptoms. Patient Language: Macedonian Prescriptions: New acetaminophen 500 mg capsule 1,000 mg PO Q6H PRN (Reason: pain) Qty: 30 0RF No Action (DME) blood-glucose meter Kit See Rx Instructions .ROUTE .MEDSUPPLY Qty: 1 6RF Rx Instructions: As directed insulin aspart U-100 [Novolog FlexPen U-100 Insulin] 100 unit/mL (3 mL) insulin pen See Rx Instructions subcut TIDWMEAL MDD 32 Qty: 30 1RF Rx Instructions: 5 Units before bf, 5 units before lunch and 7 units before dinner. Add sliding scale 1/50>200 before meals colestipol 1 gram tablet 1 g PO BID Qty: 60 3RF lisinopril 40 mg tablet 40 mg PO DAILY metoprolol tartrate 25 mg tablet 25 mg PO BID Gemtesa 75 mg tablet 75 mg PO DAILY Jardiance 25 mg tablet 25 mg PO DAILY Eliquis 5 mg tablet 5 mg PO BID escitalopram oxalate 20 mg tablet 18 mg PO HS (DME) pen needle, diabetic [BD Ultra-Fine Short Pen Needle] 31 gauge x 5/16 needle See Rx Instructions .ROUTE .MEDSUPPLY Qty: 360 4RF Rx Instructions: use with injection 4 times daily alendronate [Fosamax] 70 mg tablet 70 mg PO WEEKLY Qty: 14 2RF cholecalciferol (vitamin D3) 1,250 mcg (50,000 unit) tablet 1,250 mcg PO WEEKLY Qty: 14 2RF gabapentin 300 mg capsule 300 mg PO BID 90 Days Qty: 180 1RF simvastatin 40 mg tablet 40 mg PO HS Qty: 90 1RF insulin glargine [Basaglar KwikPen U-100 Insulin] 100 unit/mL (3 mL) insulin pen 16 unit subcut QAM 90 Days Qty: 15 3RF metformin 500 mg tablet See Rx Instructions .ROUTE .COMPLEX Qty: 360 1RF Dose Instruction: TAKE 2 TABLETS TWICE A DAY Rx Instructions: TAKE 2 TABLETS TWICE A DAY Tradjenta 5 mg tablet See Rx Instructions .ROUTE .COMPLEX Qty: 90 1RF Dose Instruction: TAKE 1 TABLET BY MOUTH EVERY MORNING Rx Instructions: TAKE 1 TABLET BY MOUTH EVERY MORNING trazodone 100 mg tablet 100 mg PO HS Qty: 90 1RF buspirone 5 mg tablet See Rx Instructions .ROUTE .COMPLEX Qty: 180 1RF Dose Instruction: TAKE 1 TABLET TWICE A DAY Rx Instructions: TAKE 1 TABLET TWICE A DAY Follow-up/Referrals: Nakul Lewis MD [Physician] - (orthopedist who performed surgery) Shayan Ibanez MD [Physician] - (orthopedist also familiar with from previous encounters) Mark Anthony Parra MD [Physician] - (orthopedist contractor [employer] today) Santos Keller DO [Primary Care Provider] - Time of Disposition: 01:10
[2024-05-22] MEDS: ACETAMINOPHEN 500 MG TABLET 1000 MG PO (22:31)
[2024-05-22 22:34] VITALS: BP 110/67; PULSE 90; RESP 19; O2SAT 99
[2024-05-22 23:15] VITALS: BP 122/45; PULSE 89; RESP 23; O2SAT 98
[2024-05-22 23:45] VITALS: BP 117/70; PULSE 85; RESP 16; O2SAT 99
[2024-05-22 23:54] LABS: Basophils Absolute Auto 0.1 K/mm3 (0.0-0.1); Basophils Percent Auto 0.8 % (0.2-1.2); Eosinophils Absolute Auto 0.3 K/mm3 (0-0.3); Eosinophils Percent Auto 2.2 % (0-4.4); Hematocrit 42.8 % (37.0-47.0); Hemoglobin 13.1 g/dL (12.0-15.0); Immature Granulocyte Absolute 0.06 K/mm3 (0.00-0.031); Immature Granulocyte Percent A 0.5 % (0-0.5); Lymphocytes Absolute Auto 2.46 K/mm3 (0.9-3.2); Lymphocytes Percent Auto 19.4 % (18.3-44.2); Mean Corpuscular HGB Conc 30.6 g/dl (32-36); Mean Corpuscular Hemoglobin 27.5 pg (26-34); Mean Corpuscular Volume 89.9 fl (80-100); Mean Platelet Volume 11.3 fl (7.4-10.4); Monocytes Absolute Auto 0.8 K/mm3 (0.1-0.6); Monocytes Percent Auto 6.2 % (2.6-8.5); Neutrophils Percent Auto 70.9 % (45.5-73.1); Platelet Count Result 331 k/mm3 (150-375); Red Blood Count 4.76 M/mm3 (4.2-5.4); Red Cell Distribution Width 16.3 % (11.5-14.5); White Blood Count 12.7 K/mm3 (4.5-10.0)
[2024-05-23] MEDS: HYDROmorphone HCL INJ (*CRX) 1 MG/ML SYR 0.5 MG IV PUSH (00:12)
[2024-05-23] MEDS: diphenhydrAMINE HCl INJ 50 MG/ML VIAL 25 MG IV PUSH (00:17)
[2024-05-23 00:31] LABS: Erythrocyte Sedimentation Rate 14 mm/hr (0-20)
[2024-05-23 00:44] LABS: Anion Gap 9 mmol/L (4-12); Blood Urea Nitrogen 27 mg/dL (7-17); CRP < 0.5 mg/dL (<1.0); Calcium 9.1 mg/dL (8.4-10.2); Carbon Dioxide 25 mmol/L (22-30); Chloride 106 mmol/L (98-107); Estimated CRCL calculation 48 ml/min; Estimated Glomerular Filt Rate 55; Glucose 137 mg/dL (65-110); Potassium 4.2 mmol/L (3.4-5.0); Sodium 140 mmol/L (137-145)
== END 2024-05-23 02:02 | disposition home or self-care (01) ==
PROVIDERS: Emergency Provider Student in an Organized Health Care Education/Training Program; PCP Internal Medicine
DX: M25.561 Pain in right knee (principal); D72.829 Elevated white blood cell count, unspecified; I25.10 Atherosclerotic heart disease of native coronary artery without angina pectoris; I48.91 Unspecified atrial fibrillation; E11.40 Type 2 diabetes mellitus with diabetic neuropathy, unspecified; E78.5 Hyperlipidemia, unspecified; E07.9 Disorder of thyroid, unspecified; K58.9 Irritable bowel syndrome, unspecified; M19.90 Unspecified osteoarthritis, unspecified site; M85.80 Other specified disorders of bone density and structure, unspecified site; F32.A Depression, unspecified; Z96.651 Presence of right artificial knee joint; Z86.718 Personal history of other venous thrombosis and embolism; Z86.0100 Personal history of colon polyps, unspecified; Z87.891 Personal history of nicotine dependence; Z86.73 Personal history of transient ischemic attack (TIA), and cerebral infarction without residual deficits; Z90.49 Acquired absence of other specified parts of digestive tract; Z90.710 Acquired absence of both cervix and uterus; Z79.899 Other long term (current) drug therapy; Z79.84 Long term (current) use of oral hypoglycemic drugs; Z79.01 Long term (current) use of anticoagulants; Z79.4 Long term (current) use of insulin
CPT/HCPCS: 36415; 73562; 80048; 85025; 85652; 86140; 96374; 96375; 99284; A9270; J1171; J1200; J2003

== ENCOUNTER 2024-07-09 09:50 | Outpatient (CLI) | payer MEDICARE, SELFPAY ==
--- NOTE | ~2024-07-09 | MM_ITS ---
EXAMINATION: MM screening quang BI w quynh HISTORY: Screening TECHNIQUE: Craniocaudal and mediolateral oblique 3-D tomosynthesis images were obtained and synthetic 2-D images were generated. CAD analysis was submitted and interpreted. COMPARISON: Comparison to multiple prior studies sequentially, with oldest reviewed study dated 06/02. BREAST PARENCHYMAL COMPOSITION: Not dense: There are scattered areas of fibroglandular density. FINDINGS: There is no evidence of suspicious mass, calcification, or architectural distortion to sugg est malignancy in either breast. There has been no suspicious interval change. IMPRESSION: 1. No mammographic evidence of malignancy. 2. Recommend routine screening mammography in one year. BI-RADS Category 1: Negative Reviewed, dictated and finalized at location B.
--- OUTSIDE RECORDS SUMMARY | 2024-07-09 09:55 | XMS_ITS | Referral Summary ---
Author Organization [facility] Address [address] [place] [address] Care Team Providers Care Senior Windows Administrator Name Role Phone Sayda Ignacio MD Unavailable [phone] Urbano Portillo MD Unavailable [phone] Perry Fu DPM Unavailable Carmel Tristan MD [...] 03/19/2019 Assessment & Plan (03/22/2019 12:29 PM TRIGONOMETRY TEACHER): Stable. Cont. Current meds. Type 2 diabetes mellitus wit h hyperglycemia, without long-term current use of insulin 03/19/2019 Assessment & Plan (03/22/2019 12:30 PM TRIGONOMETRY TEACHER): Labs ordered, will follow. 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 current use of insulin 05/17/2016 03/19/2019 Hyperlipidemia [...] on file Legal Sex Female 12:20 PM TRIGONOMETRY TEACHER Gender Identity Not on file Sexual Orientation Not on file Last Filed Vital Signs Vital Sign Reading Time Taken Comments Blood Pressure 126/74 03/31/2019 2:59 PM TRIGONOMETRY TEACHER Pulse 73 03/19/2019 1:36 PM TRIGONOMETRY TEACHER Temperature 36.8 C (98.2 F) 03/19/2019 1:36 PM TRIGONOMETRY TEACHER Respiratory Rate 18 03/19/2019 1:36 PM TRIGONOMETRY TEACHER Oxygen Saturation 97% 03/19/2019 1:36 PM TRIGONOMETRY TEACHER Inhaled Oxygen Concentration - - Weight 89.4 kg (197 lb 1.6 oz) 03/31/2019 2:59 P M TRIGONOMETRY TEACHER Height 165.1 cm (5' 5 ) 03/31/2019 2:59 PM TRIGONOMETRY TEACHER Body Mass Index 32.8 03/31/2019 2:59 PM TRIGONOMETRY TEACHER Plan of Treatment Not on file Insurance [employer] MED[employer]ARE Care Teams Senior Windows Administrator Relationship Specialty Start Date End Date Sayda Ignacio MD Internal Medicine 03/19/19 Urbano Portillo MD Referring Physician Neurosurgery 03/19/19 Perry Fu DPM Referring Physician Podiatry 03/19/19 [place] [id number] [address] Consulting Physician Cardiology 03/19/19
--- OUTSIDE RECORDS SUMMARY | 2024-07-09 09:55 | XMS_ITS | Clinical Summary ---
Author Organization [facility] Address [address] [place] [address] Care Team Providers Care Social Work Nurse Name Role Phone Santos Keller DO Primary Care Provider [phone] Source Comments [facility],non-owned Affiliates and Associated Physician Practices is amultiple site organization consisting of ambulatory clinics and hospital sitesin [place], [place], [place] and [place]. This disclosure is being madepursuant to the Care Everywhere program and may not contain all information available regarding this patient. Last updated 17.[facility] Allergies Active Allergy Reactions Criticality Noted Date [...] document. Alwaysverify current medications with the patient. Glucose Blood (BLOOD GLUCOSE TEST STRIPS) STRP Use 1 strip TID. 300 strip 12 7 Active Additional Information Patient not taking.Reported on 04/03/2022 escitalopram (LEXAPRO) 20 MG tablet Take 1 (one) tablet by mouth DAILY 7 Active lisinopril (PRINIVIL; ZESTRIL) 40 MG tablet Take 1 (one) tablet by mouth once daily 2 Active metoprolol tartrate (LOPRESSOR) 50 MG tablet Take 25 mg by mouth 2 times daily 1 Active LYRICA 50 MG capsule 3 times daily 8 Active simvastatin (ZOCOR) 40 MG tablet Take 1 (one) tablet by mouth once daily 1 Active clonazePAM (KLONOPIN) 0.5 MG tablet Take 2 mg by mouth at bedtime 8 Active oxybutynin CR 24hr (Ditropan-XL) 5 MG tablet Take 1 (one) tablet by mouth once daily Active estradiol (ESTRACE) 2 MG tablet TK 1 T PO QD 12 8 Active insulin syringe-needle (BD ULTRAFINE II) 31G X 5/16 0.5 ML syringeIndicati ons:Type 2 diabetes mellitus with hyperglycemia, with long-term current use of insulin (HCC) 2 times daily 200 Each 11 8 Active Additional Information Patient not taking.Reported on 04/03/2022 baclofen (LIORESAL) 10 MG tablet 8 Active clonazePAM (KLONOPIN) 1 MG tablet 9 Active apixaban (Eliquis) 5 MG tablet Take 1 (one) tablet by mouth 2 times daily Active NOVOLIN N vial FOR DIRECTIONS ON HOW TO TAKE THIS MEDICINE, READ THE ENCLOSED MEDICATION INFORMATION FORM 50 mL 3 9 Active metFORMIN (GLUCOPHAGE) 1000 MG tablet Take 1 tablet by mouth 2 times daily with morning and evening meal 180 tablet 9 Active VICTOZA 18 MG/3ML pen 0 Active glimepiride (AMARYL) 2 MG tablet Take 1 (one) tablet by mouth 2 times daily as needed bid Active busPIRone (Buspar) 5 MG tablet 3 Active gabapentin (Neurontin) 300 MG capsule 3 Active Tresiba FlexTouch 200 UNIT/ML pen 3 Active Tradjenta 5 MG tablet Take 1 (one) tablet by mouth every morning 3 Active traZODone (Desyrel) 100 MG tablet 3 Active Gemtesa 75 MG TABS 3 Active Hospital, Clinic, or Other Facility Administered Medication Ordered Dose Route Frequency Start Date End Date Status triamcinolone acetonide (Kenalog-40) injection 40 mgIndications:Left rotator cuff tear arthropathy 40 mg INFILTRATION ONCE 06/19/2024 06/19/2024 Ended lidocaine PF (Xylocaine MPF) 1 % injectionIndications :Left rotator cuff tear arthropathy INFILTRATION ONCE 06/19/2024 06/19/2024 Ended Active Problems Problem Noted Date Diagnosed Date Trigeminal neuralgia 12/28/2020 Anxiety 08/18/2018 Primary hypertension 05/19/2018 Atrial fibrillation 04/28/2018 S/P rotator cuff repair 03/18/2018 S/P CARETAKER RESORT shunt 10/31/2017 Overview (10/31/2017): Strata valve: 10/31/17 found @ 2.0 jw Arthritis of right acromioclavicular joint 09/17 Supraspinatus tendon tear, left, subsequent enco unter 08/20/2017 Complete tear of right rotator cuff 07/23/2017 Tendinopathy of rotator cuff, left 07/23/2017 Type 2 diabetes mellitus with hyperglycemia 04/20 USP current use of insulin 05/17/2016 Type 2 [...] specifie d B group vitamins 09/06/2011 07/18/2017 Encounters Date Type Department Care Team Description 06/19/2024 10:15 AM CDT Office Visit [facility] [address] [place] [phone] Mikaela Rivers MD Left rotator cuff tear arthropathy (Primary Dx) 06/19/2024 10:04 AM CDT - 06/19/2024 11:59 PM CDT Hospital Encounter [facility] DIAGNOSTIC RAD [address] [place] [address] Mikaela Rivers MD Discharge Disposition: Home or Self Care 06/19/2024 Travel 06/16/2024 Orders Only [facility] [address] [place] [phone] Mikaela Rivers MD Complete tear of right rotator cuff, unspecified whether traumatic ; Tendinopathy of rotator cuff, left 06/12/2024 Travel from Last 3 Months Immunizations Immunization Administration Dates Next Due INFLUENZA VACCINE 12/16/2020,11/19/2019,11/07/19 [...] = 0.6 oz pur e alcohol) Comments No Sex and Gender Information Value Date Recorded Sex Assigned at Not on file Legal Sex Female 5:49 AM MEDICAL LEAD Gender Identity Not on file Sexual Orientation Not on file Last Filed Vital Signs Vital Sign Reading Time Taken Comments Blood Pressure 131/72 04/03/2022 3:42 PM MEDICAL LEAD Pulse 90 04/03/2022 3:42 PM MEDICAL LEAD Temperature 36.1 C (97 F) 04/03/2022 3:42 PM MEDICAL LEAD Respiratory Rate 18 04/03/2022 3:42 PM MEDICAL LEAD Oxygen Saturation 97% 04/03/2022 3:42 PM MEDICAL LEAD Inhaled Oxygen Concentration - - Weight 87 kg (191 lb 12.8 oz) 04/03/2022 3:42 PM MEDICAL LEAD Height 165.1 cm (5' 5 ) 04/03/2022 3:42 PM MEDICAL LEAD Body Mass Index 31.92 04/03/2022 3:42 PM MEDICAL LEAD Plan of Treatment Health Maintenance Due Date [...] on patient's age to complete this topic Goals Goal Patient Goal Type Associated Problems Recent Progress Patient-Stated? Author PAIN General No Kimberly Vazquez, RN Note: Expected end date: 07/19/2024 Patient's pain/discomfort is manageable. Interventions: Use non-pharmacological pain managment interventions Rest Medical Devices Implanted Type Area Project Asst Device Identifier Shelf Expiration Date Model / Serial / Lot Orbitread Operator Shunt [employer] Description:stratta II Healix Advance Br Art With Dynacord Implanted:Qty: 3 on 10/14/2017 by Ron Yan MD at [facility] Right: Shoulder [employer] 03/20/2020 [id number] / / [id number] Healix Advance Knotless Br Art Implanted:Qty: 1 on 10/14/2017 by Ron Yan MD at [facility] Right: Shoulder [employer] 05/18/2020 [id number] / / [id number] Procedures Procedure Name Priority Date/Time Associated Diagnosis Comments XR SHOULDER LEFT 2VW OR MORE Routine 06/19/2024 10:20 AM CDT Complete tear of right rotator cuff, unspecified whether traumatic Tendinopathy of rotator cuff, left HEMOGLOBIN A1C - POINT OF CARE (AMB) [facility] Routine 12/19/2017 3:04 PM CDT Uncontrolled type 2 diabetes mellitus with hyperglycemia COMPREHENSIVE METABOLIC PANEL STAT 04/07/2015 12:53 PM MEDICAL LEAD MICROALB/CREAT RATIO URINE RANDOM PANEL Routine 02/22/2015 9:56 AM MEDICAL LEAD DEXA BONE DENSITY AXIAL SKELETON Routine 10/01/2012 2:26 PM CDT from Last 3 Months or Most Recently Relevant to Health Maintenance Results * XR Shoulder Left 2Vw or More (06/19/2024 10:20 AM CDT) Anatomical Region Laterality Modality Upper Extremity Radiographic Sandra ging 06/19/2024 1:11 PM CDT Impressions 06/19/2024 1:12 PM CDT IMPRESSION: Moderate osteoarthritis. > Interpreting Provider: Ja Powers MD on 06/19/2024 1:12 PM Narrative 06/19/2024 1:12 PM CDT PROCEDURE: XR SHOULDER LEFT 2VW OR MORE DATE/TIME OF EXAM: 06/19/2024 10:20 AM CLINICAL INFORMATION: None relevant/not provided if blank. Indication: M75.121: Complete tear of right rotator cuff, unspecified whether traumatic M67.912: Tendinopathy of rotator cuff, left Additional History: COMPARISON: 05/03/2017 FINDINGS: No fracture or dislocation is present. There is mild acromioclavicular and moderate glenohumeral osteoarthritis. There is narrowing of the space between the acromion process and humeral head which can be seen with rotator cuff tear. Procedure Note Ja Powers MD - 06/19/2024 PROCEDURE: XR SHOULDER LEFT 2VW OR MORE DATE/TIME OF EXAM: 06/19/2024 10:20 AM CLINICAL INFORMATION: None relevant/not provided if blank. Indication: M75.121: Complete tear of right rotator cuff, unspecified whether traumatic M67.912: Tendinopathy of rotator cuff, left Additional History: COMPARISON: 05/03/2017 FINDINGS: No fracture or dislocation is present. There is mild acromioclavicularand moderate glenohumeral osteoarthritis. There is narrowing of the space between the acromion process and humeral head which can be seen with rotator cuff tear. IMPRESSION: Moderate osteoarthritis. > Interpreting Provider: Ja Powers MD on 06/19/2024 1:12 PM us Mikaela Rivers MD DIAGNOSTIC IMAGING ORDERABLES F inal Result * HEMOGLOBIN A1C - POINT OF CARE (AMB) [facility] (12/19/2017 3:04 PM CDT) Pathologist [facility] Hemoglobin A1c POCT 7.5 [facility] POCT TESTING Blood BLOOD SPECIMEN / Unknown 12/19/2017 3:04 PM CDT Isaiah Rodriguez MD LAB - POINT OF CARE ORDERABLES Final Result Performing Organization Address City/State/[facility] Co de Phone Number [facility] POCT TESTING [address] [place] [address] * (ABNORMAL) COMPREHENSIVE METABOLIC PANEL (04/07/2015 12:53 PM MEDICAL LEAD) Pathologist [facility] BUN 24 7 - 26 mg/dL [facility] Creatinine 1.0 0.6 - 1.2 mg/dL [facility] Sodium 137 136 - 145 mmol/L [facility] Potassium 5.0(H) 3.5 - 4.5 mmol/L [facility] Chloride 105 98 - 107 mmol/L [facility] CO2 23 22 - 29 mmol/L [facility] Glucose 110 70 - 115 mg/dL [facility] Calcium 9.0 8.4 - 10.2 mg/dL [facility] Protein Total 6.7 6.0 - 8.3 g/dL [facility] Albumin 3.3(L) 3.4 - 5.0 g/dL [facility] Bilirubin Total 0.3 0.2 - 1.2 mg/dL [facility] Alkaline Phosphatase 81 40 - 150 Units/L [facility] ALT 13 0 - 55 Units/L [facility] AST 12 5 - 34 Units/L [facility] Anion Gap 14 8 - 18 [facility] BUN/Creatinine Ratio 24(H) 7 - 23 [facility] Osmolality Calculated 275 270 - 300 mOsm/kg [facility] Albumin/Globulin Ratio 1.0(L) 1.1 - 2.3 [facility] eGFR 56(L) >60 mL/min/1.7 3 m2 [facility] Blood specimen (specimen) BLOOD SPECIMEN / Unknown 04/07/2015 12:53 PM MEDICAL LEAD 04/07/2015 1:05 PM MEDICAL LEAD Nya Portillo MD LAB - CHEMISTRY ORDERABLE S Final Result Performing Organization Address City/[facility]/ZIP Co de Phone Number [facility] [address] [phone] * MICROALB/CREAT RATIO URINE RANDOM PANEL (02/22/2015 9:56 AM MEDICAL LEAD) Creatinine Urine 164 20 - 320 mg/dL [facility] Comment: Test Performed at: [place] [address] SILVIANO KIMBROUGH DO,MPH Microalbumin Urine 1.5 mg/dL [facility]) Comment: Reference Range Not established Test Performed at: [facility] [address] SILVIANO KIMBROUGH DO,MPH Urine Albumin/Creatinine Ratio 9 <30 mcg/mg creat [facility]) Comment: The ADA defines abnormalities in albumin excretion as follows: Category Result (mcg/mg creatinine) Normal <30 Microalbuminuria 30-299 Clinical albuminuria > OR = 300 The ADA recommends that at least two of three specimens collected within a 3-6 month period be abnormal before considering a patient to be within a diagnostic category. 02/22/2015 9:56 AM MEDICAL LEAD 02/22/2015 9:56 AM MEDICAL LEAD Isaiah Rodriguez MD LAB - URINE CHEMISTRY ORDERABL ES Final Result Performing Organization Address City/[facility]/ZIP Co de Phone Number [facility]) [address] * DEXA BONE DENSITY AXIAL SKELETON (10/01/2012 [...] ordering physician and is also available on [employer], the Radiology Department's computerized picture archive system. [...] Sebastian M.D. on 10/01/2012 4:41 PM . IDr. Aung D.O. have personally reviewed and interpreted this [...] the ordering physicianand is also available on [employer], the Radiology Department's [employer], a [employer]ure archive system. SUMMARY: BONE MINERAL DENSITY (BMD) [...] PM . Jermaine Temple MD DEXA ORDERABLES Final Result from Last 3 Months or Most Recently Relevant to Health Maintenance Insurance [employer] MEDICARE ADV SELF PAY NO INSURANCE Member Subscriber Plan / Payer (Ef fective for All Dates) Name:Alicia Manzano R Member ID:Not on file Relation to Subscriber:Not on file Name:ALICIA MANZANO Subscriber ID:Not on file (Home) Address: [address] [place] [phone] Payer ID:Not on file Group ID:Not on file Type:Self Pay Address: [place], [place] * Guarantor: ALICIA MANZANO Account Type Relation to Patient Date of Phone Billing Address Personal/Family [address] [place] [phone] [employer] MEDICARE ADV SELF PAY NO INSURANCE Member Subscriber Plan / Payer (Ef fective for All Dates) Name:Alicia Manzano R Member ID:Not on file Relation to Subscriber:Not on file Name:ALICIA MNAZANO Subscriber ID:Not on file (Home) Address: [address] [place] [phone] Payer ID:Not on file Group ID:Not on file Type:Self Pay Address: [place], [place] * Guarantor: ALICIA MANZANO Account Type Relation to Patient Date of Phone Billing Address Personal/Family [address] [place] [phone] [employer] MEDICARE ADV SELF PAY NO INSURANCE Member Subscriber Plan / Payer (Ef fective for All Dates) Name:Alicia Manzano R Member ID:Not on file Relation to Subscriber:Not on file Name:ALICIA MANZANO Subscriber ID:Not on file (Home) Address: [address] [place], [place] [id number] Payer ID:Not on file Group ID:Not on file Type:Self Pay Address: [place], [place] * Guarantor: ALICIA MANZANO Account Type Relation to Patient Date of Phone Billing Address Personal/Family [address] [place] [address] [employer] MEDICARE ADV SELF PAY NO INSURANCE Member Subscriber Plan / Payer (Ef fective for All Dates) Name:Alicia Manzano R Member ID:Not on file Relation to Subscriber:Not on file Name:ALICIA MANZANO Subscriber ID:Not on file (Home) Address: [address] [place] [address] Payer ID:Not on file Group ID:Not on file Type:Self Pay Address: [place], [place] Advance Directives Documents on File Type Date Recorded Patient General Internal Medicine Doctor Expl anation Adv Directive/Living Will/POA 10/14/2017 POA/LIVING WILL Care Teams Social Work Nurse Relationship Specialty Start Date End Date Santos Keller DO PCP - General Internal Medicine 09/02/19
--- OUTSIDE RECORDS SUMMARY | 2024-07-09 09:55 | XMS_ITS | Patient Health Record ---
Author Organization [facility] Address [address] [facility] [address] [place], [place] [id number] Care Team Providers Care Regional Commercial Sales Manager Name Role Phone IVAN MASON Unavailable [phone] Santos Keller Unavailable Unavailable Allergies No Known Allergies Reason For Referral No Information Medications Medication SIG (Take, Route, Frequency, Duration) Notes Start Date End Date Status Medrol Dosepak ORAL Medrol DosepakOriginal MedicationMedrol Dosepak *Reorder from Spry for eRx and Interaction Alerts* 12/05/2020 Active methylPREDNISolone 4 MG as directed Orally Active Encounters Encounter Location Date Provider Diagnosis [facility] [place] [address] [address] [place] [phone] 10/28/2023 IVAN SNOOK Lesion of plantar nerve, 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 ; Metatarsalgia of right foot M77.41 ; Tinea unguium B35.1 and Pain in right foot M79.671 [facility] [place] [address] [address] [place] [id number] 12/09/2023 IVAN SNOOK Lesion of plantar nerve, 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
--- OUTSIDE RECORDS SUMMARY | 2024-07-09 09:55 | XMS_ITS | Clinical Summary ---
Author Organization [facility] Address [address] [place] [address] Care Team Providers Care Manager Economic Name Role Phone Sayda Ignacio MD Unavailable [phone] Urbano Portillo MD Unavailable [phone] Perry Fu DPM Unavailable Carmel Tristan MD [...] 03/19/2019 Assessment & Plan (03/22/2019 12:29 PM IT SPECIALIST): Stable. Cont. Current meds. Type 2 diabetes mellitus wit h hyperglycemia, without long-term current use of insulin 03/19/2019 Assessment & Plan (03/22/2019 12:30 PM IT SPECIALIST): Labs ordered, will follow. 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 05/17/2016 03/19/2019 Hyperlipidemia [...] on file Legal Sex Female 12:20 PM IT SPECIALIST Gender Identity Not on file Sexual Orientation Not on file Obstetrics History Last Filed Vital Signs Vital Sign Reading Time Taken Comments Blood Pressure 126/74 03/31/2019 2:59 PM IT SPECIALIST Pulse 73 03/19/2019 1:36 PM IT SPECIALIST Temperature 36.8 C (98.2 F) 03/19/2019 1:36 PM IT SPECIALIST Respiratory Rate 18 03/19/2019 1:36 PM IT SPECIALIST Oxygen Saturation 97% 03/19/2019 1:36 PM IT SPECIALIST Inhaled Oxygen Concentration - - Weight 89.4 kg (197 lb 1.6 oz) 03/31/2019 2:59 P M IT SPECIALIST Height 165.1 cm (5' 5 ) 03/31/2019 2:59 PM IT SPECIALIST Body Mass Index 32.8 03/31/2019 2:59 PM IT SPECIALIST Plan of Treatment Not on file Insurance [employer] MEDICARE Care Teams Manager Economic Relationship Specialty Start Date End Date Sayda Ignacio MD Internal Medicine 03/19/19 Urbano Portillo MD Referring Physician Neurosurgery 03/19/19 Perry Fu DPM Referring Physician Podiatry 03/19/19 [place] [id number] [address] Consulting Physician Cardiology 03/19/19
--- OUTSIDE RECORDS SUMMARY | 2024-07-09 09:55 | XMS_ITS | CONTINUITY OF CARE DOCUMENT ---
Author Name khalif cuadra Address Unknown Organization [facility] Address [address] [place] [address] Phone [phone] Care Team Providers Care Flatcar Whacker Name Role Phone Kun KATE, Carmel Unavailable Carmel Tristan MD Unavailable CASSIUS ONEILL DO Unavailable PROBLEMS Condition Status Date Provider Notes Family [...] In-person encounter Office Visit Carmel Tristan MD [facility] - In-person encounter Office Visit Carmel Tristan MD [facility] - In-person encounter Office Visit Carmel Tristan MD [facility] HTN essential--echo ef nl, 05/2022OSA--mild, cant tolerate cpap - In-person encounter Office Visit Carmel Tristan MD [facility] Preoperative cardiovascular evaluation--knee replacement - In-person encounter Office Visit Carmel Tristan MD [facility] HTN essential--echo ef nl, 05/2022 - In-person encounter Office Visit Carmel Tristan MD [facility] - In-person encounter Office Visit Carmel Tristan MD [facility] - In-person encounter Office Visit Carmel Tristan MD [facility] - In-person encounter Office Visit Carmel Tristan MD [facility] mild CAD - cath 06/2018 - In-person encounter Office Visit Carmel Tristan MD [facility] IBS (irritable bowel syndrome) - In-person encounter Office Visit Carmel Tristan MD [facility] Family History Coronary Heart Disease female < 65:Atrial fib paroxysmalHTN essential--echo ef nl, 05/2022HyperlipidemiaAnxiety disorderAsthmaDiabetes mellitusFatigue VITAL SIGNS Date Observation Value Provider Body Mass Index (Ratio) 29.34 kg/m2 Abhishek Buchanan blood pressure, diastolic 88 mm[Hg] Nabil salvador [place] blood pressure, systolic 138 mm[Hg] Vanessa bryan [place] pulse rate 111 /min [facility] weight E&M 181.8 [lb_av] Nabilformerly [facility] [place] oxygen saturation, oximetry 94 % [facility] [place] blood pressure, cuff size regular Nabil salvador [place] height E&M 66 [in_i] Marily Peñaloza Body Mass Index (Ratio) 29.86 kg/m2 Reid Tristan MD blood pressure, diastolic 72 mm[Hg] Li nkLoghbavani blood pressure, systolic 119 mm[Hg] Magui kLic [...] MD blood pressure, diastolic 80 mm[Hg] Br [facility] Block blood pressure, systolic 138 mm[Hg] Dee Dee jaquan Block pulse rate 100 /min Ruth Block oxygen saturation, oximetry 97 % Ruth Block weight E&M 195 [lb_av] Ruth Block blood pressure, resting Yes Brit julia Block respiratory rate E&M 16 /min [facility] height E&M 66 [in_i] Ruth Block [...] Estab. 4 platelet count 339 X10E3/UL [facility] [phone]/03/0 4 red blood cell distribution width 14.1 [...] 0-149 4 cholesterol, serum 139 mg/dL [facility] 750-638 8917/03/0 4 alanine aminotransferase (SGPT), serum 21 1/L [...] 3.5-5.2 4 sodium, serum 142 mmol/L [facility] 570-154 3758/03/0 4 urea nitrogen/creatinine ratio, serum 22 [facility] 12-28 4 eGFR if 84 mL/min/{1 .73_m2} [facility] >59 4 eGFR if not 73 mL/min/{1 .73_m2} [facility] >59 4 creatinine, serum 0.83 mg/dL [facility] 0.57-1.00 4 urea nitrogen, blood 18 mg/dL [facility] 8-27 4 blood glucose, random 147 mg/dL [facility] 65-99 High HISTORY OF MEDICATION USE Medication Status Instructions Dates Provider Indications Com ments lisinopril 40 mg tablet active TAKE 1 TABLET ONCE DAILY Carmelita Man trazodone 100 mg tablet active Carmel Tristan MD Tradjenta 5 mg tablet active Carmel Tristan MD lisinopril 40 mg tablet completed Take 1 tablet by mouth once a day [facility] mg tablet active Abhishek Buchanan [...] TAKE 1 TABLET TWICE A DAY Carmelita Rushi glimepiride 4 mg tablet active Take 1 tablet by mouth once a day Carmel Tristan MD gabapentin 300 mg capsule active Take 1 capsule by mouth twice a day Carmel Tristan MD lisinopril 40 mg tablet completed TAKE 1 TABLET ONCE DAILY - María Briggs Eliquis 5 mg tablet active TAKE 1 TABLET TWICE A DAY [facility] Victoza 2-Nelson 0.6 mg/0.1 mL (18 mg/3 mL) pen injector completed Inject subcutaneously once a day - Abhishek Carlinramineri #9, 60 days supply, Prescribed by RAZA [...] capsule completed capsule by mouth - Abhishek Raeganlizette #9, 3 days supply, Prescribed by IVAN [...] by mouth twice a day - Pita Navid clonazepam 1 mg tablet active Take 1 tablet by mouth once a day Pita Navid simvastatin 40 mg tablet completed Take 1 tablet by mouth every night - Harinder Gonzales RN Lyrica 50 mg capsule completed Take 1 capsule by mouth single dose as needed - Carmel Tristan MD Estrace 2 mg tablet completed Take 1 once a day - Carmel Tristan MD escitalopram oxalate 20 mg tablet active Take 1 tablet by mouth once a day Pita Shoemaker metoprolol tartrate 25 mg tablet completed Take 1 tablet twice a day TAKE 1/2 TABLET BY MOUTH TWICE DAILY - Carmel Tristan MD SOCIAL HISTORY Date Observation Value Provider alcohol use no Abhishek Farrisrandy smoking, year quit 2015 Abhishek arango smoking history, tot al pack/day 1.5 Abhishek Farrisrandy cigarette use yes Abhishek Farrisrandy smoking status Former smoker Abhishek Farris i alcohol use no Abhishek Buchanan smoking, year quit 2015 Abhishek hallaquiles smoking history, tot al pack/day 1.5 Abhishek Farrisrandy cigarette use yes Abhishek Buchanan smoking status Former smoker Abhishek Farris i social history reviewed E&M revi ewed - no changes required Abhishek Farrisrandy smoking, year quit 2015 Pushpa Will iams smoking history, tot al pack/day 1.5 Pushpa Anthony cigarette use yes Pushpa Anthony smoking status Former smoker Pushpa garay social [...] Nitin hancock is a former smoker. Ruth Li social history reviewed E&M revi ewed - no changes required Ruth Li smoking, year quit 2015 Elizabeth walker smoking history, tot al pack/day 1.5 Elizabeth Cordon cigarette use yes Elizabeth Donell kline smoking status Former smoker Elizabeth Weir mauricio social history E&M S moking History: Nitin [...] required Carmel Tristan MD smoking, year quit 2016 Tonsha Mo ss smoking history, tot al [...] Li FAMILY HISTORY Family Member Condition Mother [place] female <65 Full Sister Family History of Cedeño dden Cardiac : Full Sister Family History Coron govind Heart Disease female < 65: Father Family History of Co owen Cancer: INSURANCE PROVIDERS Payer name Policy type / Coverage type [place] [employer] party ID [employer] MEDICARE [place] PPO Commercial insurance co mpany [id number] ADVANCE DIRECTIVES Name Date DISCUSSED - NO DECISION MADE TREATMENT PLAN Date Name Performer [id number],S, Abhishek Ahmedza i [id number],S, Abhishek Ahmedza i [id number],S, Abhishek Ahmedza i [id number],S, Abhishek Ahmedza i [id number],S, Abhishek Ahmedza i [id number],S, Abhishek Ahmedza i [id number],S, Abhishek Ahmedza i [id number],S, Abhishek Ahmedza i [id number],S, Abhishek Ahmedza i [id number],S, Abhishek medza i [id number],S, Abhishek Ahmedza i [id number],S, Abhishek Ahmedza i [id number],S, Abhishek Ahmedza i [id number],S, Abhishek Ahmedza i [id number],S, Abhishek Ahmedza i [id number],S, Abhishek Ahmedza i [id number],S, Abhishek Ahmedza i [id number],S, Abhishek Ahmedza i [id number],S, Abhishek Ahmedza i [id number],S, Abhishek Ahmedza i [id number],S, Abhishek Ahmedza i [id number],BCarmel MD [id number],B, Carmel Tristan MD [id number],S, Carmel Tristan MD [id number],W, Carmel Tristan MD [id number],S, Carmel Tristan MD Cardiology:This visi t has [...] a day Carmel Tristan MD Cardiology Abhishek Buchanan Cardiology Abhishek Buchanan Cardiology Abhishek Buchanan Cardiology Abhishek Buchanan Cardiology Abhishek Farrisi Cardiology Abhishek Buchanan Cardiology Abhishek Farrisi Cardiology Abhishek Carlinmedzarandy Cardiology Abhishek Buchanan Cardiology Abhishek Buchanan Cardiology Abhishek Buchanan Cardiology Abhishek Buchanan Cardiology Abhishek Ahmedzai Cardiology Abhishek Ahmedzai Cardiology [...] Tristan MD Cardiology Carmel Tristan MD Cardiology hospital follow up To [...]
--- OUTSIDE RECORDS SUMMARY | 2024-07-09 09:55 | XMS_ITS ---
Author Organization [facility] Address [address] [place], [place] [id number] Care Team Providers Care Marketing Teacher Name Role Phone IVAN MASON Unavailable [phone] Santos Keller Unavailable Unavailable REASON FOR VISIT Right Foot Check Encounters Encounter Location Date Provider Diagnosis [facility] [address] [place], [place] [id number] 07/08/2023 IVAN MASON Plan Of Treatment No Information Progress Notes * ANNEMARIE MANZANO RDOB:[birth year] (74 yo F)Acc No.[id number]:07/08/2023 Patient: Nitin ANNEMARIE LY Provider: Ibis Mason DPM :1950 A ge:73 Y S ex:Female Date:07/08/2023 Address:[address] [place], [place] [id number] Subjective: * Chief Complaints: * 1 . Right Foot Check. * Medical History: Objective: * Vitals: Assessment: Plan: * Treatment: * Billing Information: * Visit Code: * Procedure Codes: * Electronic signature of IVAN MASON DPM on 07/09/2024 at 09:55 AM CDT Sign off status: Pending * Provider: Ibis Mason DPM Date: 07/08/2023 Generated for Printi ng/Faxing/eTransmitting on: 07/09/2024 09:55 AM CDT
== END 2024-07-09 09:51 | disposition home or self-care (01) ==
LOC: ANHIMG 09:53
PROVIDERS: PCP Clinical Nurse Specialist; Visit Provider Clinical Nurse Specialist
DX: Z12.31 Encounter for screening mammogram for malignant neoplasm of breast (principal)
CPT/HCPCS: 77063; 77067

== ENCOUNTER 2024-07-31 14:29 | Outpatient (CLI) | payer MEDICARE, SELFPAY ==
--- OUTSIDE RECORDS SUMMARY | 2024-07-31 14:34 | XMS_ITS | Clinical Summary ---
Author Organization [facility] Address [address] [place] [place] [address] Care Team Providers Care Cyber Policy And Strategy Planner Name Role Phone Santos Keller DO Primary Care Provider Source Comments [facility],non-owned Affiliates and Associated Physician Practices is amultiple site organization consisting of ambulatory clinics and hospital sitesin [place], [place], [place] and [place]. This disclosure is being madepursuant to the Care Everywhere program and may not contain all information available regarding this patient. Last updated 17.[facility] Allergies Active Allergy Reactions Criticality [...] Active Gemtesa 75 MG TABS 3 Active Active Problems Problem Noted Date Diagnosed Date Trigeminal neuralgia 12/28/2020 Anxiety 08/18/2018 Primary hypertension 05/19/2018 Atrial fibrillation 04/28/2018 S/P rotator cuff repair 03/18/2018 S/P EXECUTOR OF ESTATE shunt 10/31/2017 Overview (10/31/2017): Strata valve: 10/31/17 found @ 2.0 jw Arthritis of right acromioclavicular joint 09/17 Supraspinatus tendon tear, left, subsequent enco unter 08/20/2017 Complete tear of right rotator cuff 07/23/2017 Tendinopathy of rotator cuff, left 07/23/2017 Type 2 diabetes mellitus with hyperglycemia 04/20 senior living current use of insulin 05/17/2016 Type 2 [...] Encounters Date Type Department Care Team Description 07/24/2024 Travel 07/24/2024 Orders Only [facility] - Neurosurgery [address] [place] [address], [place] [address] Adam Hmyan MD EXECUTOR OF ESTATE (ventriculoperitonea l) shunt status 06/19/2024 10:15 AM CDT Office Visit [facility] - Orthopedics [address] [place] [address], [place] [address] Mikaela Rivers MD Left rotator cuff tear arthropathy (Primary Dx) 06/19/2024 10:04 AM CDT - 06/19/2024 11:59 PM CDT Hospital Encounter [facility] DIAGNOSTIC RAD [facility]SM [address] [facility] [place] [address] Mikaela Rivers MD Discharge Disposition: Home or Self Care 06/19/2024 Travel 06/16/2024 Orders Only [facility] - Orthopedics [address] [place] [address], [facility] [place] [address] Mikaela Rivers MD Complete tear of right [...] on file Legal Sex Female 5:49 AM JEWELRY RACKER Gender Identity Not on file Sexual Orientation Not on file Last Filed Vital Signs Vital Sign Reading Time Taken Comments Blood Pressure 131/72 04/03/2022 3:42 PM JEWELRY RACKER Pulse 90 04/03/2022 3:42 PM JEWELRY RACKER Temperature 36.1 C (97 F) 04/03/2022 3:42 PM JEWELRY RACKER Respiratory Rate 18 04/03/2022 3:42 PM JEWELRY RACKER Oxygen Saturation 97% 04/03/2022 3:42 PM JEWELRY RACKER Inhaled Oxygen Concentration - - Weight 87 kg (191 lb 12.8 oz) 04/03/2022 3:42 PM JEWELRY RACKER Height 165.1 cm (5' 5) 04/03/2022 3:42 PM JEWELRY RACKER Body Mass Index 31.92 04/03/2022 3:42 PM JEWELRY RACKER Plan of Treatment Upcoming Encounters Date Type Department Care Team (Late st Contact Info) Description 08/04/2024 12:00 PM CDT Appointment [facility] CAT SCAN [address] [place] [address] Adam Hyman MD [address] [place] [address] [address] [place] [address] 08/04/2024 1:00 PM CDT Office Visit [facility] - Neurosurgery [address], [place] [address] Adam Hyman MD [address] [place] [address] [address] [place] [address] Health Maintenance Due Date Last Done Comments [...] MONOFILAMENT 07/18/2018 07/18/2017, 07/18/2017 COVID-19 VACCINE ( - season) 2023 DEPRESSION SCREENING 02/19/2024 DIABETES - [...] interventions Rest Medical Devices Implanted Type Area Top Dyeing Machine Tender Device Identifier Shelf Expiration Date Model / Serial / Lot Technology Education Instructor Shunt [employer] Description:stratta II Healix Advance Br [place] With Dynacord Implanted:Qty: 3 on 10/14/2017 by Ron Yan MD at [facility] Right: Shoulder [employer] 03/20/2020 [id number] / / [id number] Healix Advance Knotless Br [place] Implanted:Qty: 1 on 10/14/2017 by Ron Yan MD at [facility] Right: Shoulder [employer] 05/18/2020 [id number] / / [id number] Procedures Procedure Name Priority Date/Time Associated Diagnosis Comments XR SHOULDER LEFT 2VW OR MORE Routine 06/19/2024 10:20 AM CDT Complete tear of right rotator cuff, unspecified whether traumatic Tendinopathy of rotator cuff, left HEMOGLOBIN A1C - POINT OF CARE (AMB) [facility] Routine 12/19/2017 3:04 PM CDT Uncontrolled type 2 diabetes mellitus with hyperglycemia COMPREHENSIVE METABOLIC PANEL STAT 04/07/2015 12:53 PM JEWELRY RACKER MICROALB/CREAT RATIO URINE RANDOM PANEL Routine 02/22/2015 9:56 AM JEWELRY RACKER DEXA BONE DENSITY AXIAL SKELETON Routine 10/01/2012 [...] Ja Powers MD on 06/19/2024 1:12 PM Mikaela Rivers MD DIAGNOSTIC IMAGING ORDERABLES F inal Result * HEMOGLOBIN A1C - POINT OF CARE (AMB) [facility] (12/19/2017 3:04 PM CDT) Pathologist [facility] Hemoglobin A1c POCT 7.[address] [facility] POCT TESTING Blood BLOOD SPECIMEN / Unknown 12/19/2017 3:04 PM CDT us Isaiah Rodriguez MD LAB - POINT OF CARE ORDERABLES Final Result [facility] POCT TESTING [address] [phone] * (ABNORMAL) COMPREHENSIVE METABOLIC PANEL (04/07/2015 12:53 PM JEWELRY RACKER) BUN 24 7 - 26 mg/dL [facility] Creatinine 1.0 0.6 - 1.2 mg/dL [facility] Sodium 137 136 - 145 mmol/L [facility] Potassium 5.0(H) 3.5 - 4.5 mmol/L [facility] Chloride 105 98 - 107 mmol/L [facility] CO2 23 22 - 29 mmol/L [facility] Glucose 110 70 - 115 mg/dL [facility] Calcium 9.0 8.4 - 10.2 mg/dL [facility] Protein Total 6.7 6.0 - 8.3 g/dL [facility] Albumin 3.3(L) 3.4 - 5.0 g/dL [facility] Bilirubin Total 0.3 0.2 - 1.2 mg/dL [facility] Alkaline Phosphatase 81 40 - 150 Units/L [facility] ALT 13 0 - 55 Units/L [facility] AST 12 5 - 34 Units/L [facility] Anion Gap 14 8 - 18 [facility] BUN/Creatinine Ratio 24(H) 7 - 23 [facility] Osmolality Calculated 275 270 - 300 mOsm/kg [facility] Albumin/Globulin Ratio 1.0(L) 1.1 - 2.3 [facility] eGFR 56(L) >60 mL/min/1.7 3 m2 [facility] Blood specimen (specimen) BLOOD SPECIMEN / Unknown 04/07/2015 12:53 PM JEWELRY RACKER 04/07/2015 1:05 PM JEWELRY RACKER us Historical Provider LAB - CHEMISTRY ORDERABLE S Final Result Performing Organization Address City/State/[facility] Co de Phone Number [facility] [address] [place] [address] * MICROALB/CREAT RATIO URINE RANDOM PANEL (02/22/2015 9:56 AM JEWELRY RACKER) Creatinine Urine 164 20 - 320 mg/dL [facility] (U) Comment: Test Performed at: [facility] [address] SILVIANO KIMBROUGH DO,MPH Microalbumin Urine 1.5 mg/dL [facility] ([facility]) Comment: Reference Range Not established Test Performed at: [facility] [address] SILVIANO KIMBROUGH DO,MPH Urine Albumin/Creatinine Ratio 9 <30 mcg/mg creat [facility] ([facility]) Comment: The ADA defines abnormalities in albumin excretion as follows: Category Result (mcg/mg creatinine) Normal <30 Microalbuminuria 30-299 Clinical albuminuria > OR = 300 The ADA recommends that at least two of three specimens collected within a 3-6 month period be abnormal before considering a patient to be within a diagnostic category. 02/22/2015 9:56 AM JEWELRY RACKER 02/22/2015 9:56 AM JEWELRY RACKER Isaiah Rodriguez MD LAB - URINE CHEMISTRY ORDERABL ES Final Result [facility] ([facility]) [id number] * DEXA BONE DENSITY AXIAL SKELETON [...] ordering physician and is also available on [employer], the Radiology Department's computerized picture archive system. [...] Sebastian M.D. on 10/01/2012 4:41 PM . Donovan, Dr. Aung Brown D.O. have personally reviewed [...] the ordering physicianand is also available on [employer], the Radiology Department's [employer] archive system. SUMMARY: BONE MINERAL DENSITY (BMD) [...] Timo Sebastian M.D. on 10/01/2012 4:[address] Aung Man D.O. have personally reviewed and interpreted thisexamination/study. This report was electronically signed by Aung Brown D.O. on 10/01/20125:19 PM . us Jermaine Temple MD DEXA ORDERABLES Final Result from Last 3 Months or Most Recently Relevant to Health Maintenance Insurance MEDICARE ADV * Guarantor: ALICIA MANZANO Account Type Relation to Patient Date of Phone Billing Address Personal/Family [address] [place] [address] [facility] * Guarantor: ALICIA MANZANO Account Type Relation to Patient Date of Phone Billing Address Personal/Family [address] [place] [address] [facility] SELF PAY NO INSURANCE Member Subscriber Plan / Payer (Ef fective for All Dates) Name:Alicia Manzano Member ID:Not on file Relation to Subscriber:Not on file Name:ALICIA MANZANO Subscriber ID:Not on file (Home) Address: [address] [place] [address] Payer ID:Not on file Group ID:Not on file Type:Self Pay Address: [place], [place] * Guarantor: ALICIA MANZANO Account Type Relation to Patient Date of Phone Billing Address Personal/Family [address] [place] [address] SELF PAY NO INSURANCE Member Subscriber Plan / Payer (Ef fective for All Dates) Name:Alicia Manzano Member ID:Not on file Relation to Subscriber:Not on file Name:ALICIA MANZANO Subscriber ID:Not on file (Home) Address: [address] [place] [address] Payer ID:Not on file Group ID:Not on file Type:Self Pay Address: [place], [place] Advance Directives Documents on File Type Date Recorded Patient Napper Grinder Expl anation Adv Directive/Living Will/POA 10/14/2017 POA/LIVING WILL Care Teams Cyber Policy And Strategy Planner Relationship Specialty Start Date End Date Santos Keller DO PCP - General Internal Medicine 09/02/19
--- OUTSIDE RECORDS SUMMARY | 2024-07-31 14:34 | XMS_ITS | Clinical Summary ---
Author Organization [facility] Address [address] [place] [address] Care Team Providers Care It Communications Manager Name Role Phone Sayda Ignacio MD Unavailable [phone] Urbano Portillo MD Unavailable [phone] Perry Fu DPM Unavailable Carmel Tristan MD [...] 03/19/2019 Assessment & Plan (03/22/2019 12:29 PM ECOMMERCE MARKETING MANAGER): Stable. Cont. Current meds. Type 2 diabetes mellitus wit h hyperglycemia, without long-term current use of insulin 03/19/2019 Assessment & Plan (03/22/2019 12:30 PM ECOMMERCE MARKETING MANAGER): Labs ordered, will follow. Class 1 obesity [...] tear of right rotator cuff 07/23/2017 03/19/2019 dedicated intermodal truck driver current use of insulin [...] on file Legal Sex Female 12:20 PM ECOMMERCE MARKETING MANAGER Gender Identity Not on file Sexual Orientation Not on file Obstetrics History Last Filed Vital Signs Vital Sign Reading Time Taken Comments Blood Pressure 126/74 03/31/2019 2:59 PM ECOMMERCE MARKETING MANAGER Pulse 73 03/19/2019 1:36 PM ECOMMERCE MARKETING MANAGER Temperature 36.8 C (98.2 F) 03/19/2019 1:36 PM ECOMMERCE MARKETING MANAGER Respiratory Rate 18 03/19/2019 1:36 PM ECOMMERCE MARKETING MANAGER Oxygen Saturation 97% 03/19/2019 1:36 PM ECOMMERCE MARKETING MANAGER Inhaled Oxygen Concentration - - Weight 89.4 kg (197 lb 1.6 oz) 03/31/2019 2:59 P M ECOMMERCE MARKETING MANAGER Height 165.1 cm (5' 5) 03/31/2019 2:59 PM ECOMMERCE MARKETING MANAGER Body Mass Index 32.8 03/31/2019 2:59 PM ECOMMERCE MARKETING MANAGER Plan of Treatment Not on file Insurance [employer] MEDICARE Care Teams It Communications Manager Relationship Specialty Start Date End Date Sayda Ignacio MD Internal Medicine 03/19/19 Urbano Portillo MD Referring Physician Neurosurgery 03/19/19 Perry Fu DPM Referring Physician Podiatry 03/19/19 [place] [id number] [address] Consulting Physician Cardiology 03/19/19
--- OUTSIDE RECORDS SUMMARY | 2024-07-31 14:34 | XMS_ITS | Referral Summary ---
Author Organization [facility] Address [address] [place] [address] Care Team Providers Care Rec Therapist Name Role Phone Sayda Ignacio MD Unavailable [phone] Urbano Portillo MD Unavailable Perry Fu DPM Unavailable Carmel Tristan MD [...] 03/19/2019 Assessment & Plan (03/22/2019 12:29 PM MATTING PRESS TENDER): Stable. Cont. Current meds. Type 2 diabetes mellitus wit h hyperglycemia, without long-term current use of insulin 03/19/2019 Assessment & Plan (03/22/2019 12:30 PM MATTING PRESS TENDER): Labs ordered, will follow. Class 1 obesity [...] tear of right rotator cuff 07/23/2017 03/19/2019 long term care pharmacist current use of insulin 05/17/2016 03/19/2019 Hyperlipidemia [...] on file Legal Sex Female 12:20 PM MATTING PRESS TENDER Gender Identity Not on file Sexual Orientation Not on file Last Filed Vital Signs Vital Sign Reading Time Taken Comments Blood Pressure 126/74 03/31/2019 2:59 PM MATTING PRESS TENDER Pulse 73 03/19/2019 1:36 PM MATTING PRESS TENDER Temperature 36.8 C (98.2 F) 03/19/2019 1:36 PM MATTING PRESS TENDER Respiratory Rate 18 03/19/2019 1:36 PM MATTING PRESS TENDER Oxygen Saturation 97% 03/19/2019 1:36 PM MATTING PRESS TENDER Inhaled Oxygen Concentration - - Weight 89.4 kg (197 lb 1.6 oz) 03/31/2019 2:59 P M MATTING PRESS TENDER Height 165.1 cm (5' 5) 03/31/2019 2:59 PM MATTING PRESS TENDER Body Mass Index 32.8 03/31/2019 2:59 PM MATTING PRESS TENDER Plan of Treatment Not on file Insurance [employer] MEDICARE Care Teams Rec Therapist Relationship Specialty Start Date End Date Sayda Ignacio MD Internal Medicine 03/19/19 Urbano Portillo MD Referring Physician Neurosurgery 03/19/19 Perry Fu DPM Referring Physician Podiatry 03/19/19 [place] [id number] [address] Consulting Physician Cardiology 03/19/19
--- OUTSIDE RECORDS SUMMARY | 2024-07-31 14:34 | XMS_ITS | Encounter Summary ---
Author Organization [facility] Address [address] [place] [address] Care Team Providers Care Manager Of Organizational Development Name Role Phone Santos Keller DO Primary Care Provider [phone] Reason for Referral * Radiology Services (Routine) - Authorized Specialty Diagnoses / Procedures Referred By Shoaib t Referred To Contact Computed Tomography Diagnoses [facility] ATTEND[facility] (ventriculoperitoneal) shunt status Procedures CT Head Wo Contrast Adam Hyman MD [address] [place] [address] [place] [address] Phone: tel: fax: Referral ID Status Reason Start Date Expiration Date V isits Requested Visits Authorized [id number] Authorized 07/24/2024 07/24/2025 1 1 Encounter Details Date Type Department Care Team (Late st Contact Info) Description 07/24/2024 Orders Only [facility] - Neurosurgery [address] [place] [address], [place] [id number] Adam Hyman MD [address] [place] [address] [address] [place] [address] [facility] ATTENDANT (ventriculoperitoneal) shunt status Social History Tobacco Use Types Packs/Day Years Used Date Smoking Tobacco: Former Cigarettes Q uit: 08/26/2014 Smokeless Tobacco: Never Alcohol Use Standard Drinks/Week Comments No 0 (1 standard drink = 0.6 oz pur e alcohol) Comments No Sex and Gender Information Value Date Recorded Sex Assigned at Not on file 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 Gender Identity Not on file Sexual Orientation Not on file documented as of this encounter Plan of Treatment Upcoming Encounters Date Type Department Care Team (Late st Contact Info) Description 08/04/2024 12:00 PM CDT Appointment [facility] [address] [place] [address] Adam Hyman MD [address] [place] [address] [address] [place] [address] 08/04/2024 1:00 PM CDT Office Visit [facility] - Neurosurgery [address] [place] [address], [place] [address] Adam Hyman MD [address] [place] [address] [address] [place] [address] Scheduled Orders Name Type Priority Associated Diagnoses Orde r Schedule CT Head Wo Contrast Imaging Routine [facility] ATTENDANT (ventriculoperitoneal) shunt status 1 Occurrences starting 07/24/2024 until 07/24/2025 documented as of this encounter Goals Goal Patient Goal Type Associated Problems Recent Progress Patient-Stated? Author PAIN General No Kimberly Vazquez, RN Note: Expected end date: 07/19/2024 Patient's pain/discomfort is manageable. Interventions: Use non-pharmacological pain managment interventions Rest documented as of this encounter Visit Diagnoses Diagnosis [facility] ATTENDANT (ventriculoperitoneal) shunt status- Primary Presence of cerebrospinal fluid drainage device documented in this encounter Care Teams Manager Of Organizational Development Relationship Specialty Start Date End Date Santos Keller DO PCP - General Internal Medicine 09/02/19 documented as of this encounter
[2024-07-31 15:20] LABS: Basophils Absolute Auto 0.1 K/mm3 (0.0-0.1); Basophils Percent Auto 0.8 % (0.2-1.2); Eosinophils Absolute Auto 0.3 K/mm3 (0-0.3); Eosinophils Percent Auto 2.9 % (0-4.4); Hematocrit 40.2 % (37.0-47.0); Hemoglobin 12.2 g/dL (12.0-15.0); Immature Granulocyte Absolute 0.05 K/mm3 (0.00-0.031); Immature Granulocyte Percent A 0.6 % (0-0.5); Lymphocytes Absolute Auto 1.76 K/mm3 (0.9-3.2); Lymphocytes Percent Auto 19.8 % (18.3-44.2); Mean Corpuscular HGB Conc 30.3 g/dl (32-36); Mean Corpuscular Hemoglobin 27.6 pg (26-34); Mean Platelet Volume 10.4 fl (7.4-10.4); Monocytes Absolute Auto 0.6 K/mm3 (0.1-0.6); Monocytes Percent Auto 7.1 % (2.6-8.5); Neutrophils Absolute Auto 6.1 K/mm3 (1.3-6.7); Neutrophils Percent Auto 68.8 % (45.5-73.1); Platelet Count Result 299 k/mm3 (150-375); Red Blood Count 4.42 M/mm3 (4.2-5.4); Red Cell Distribution Width 15.4 % (11.5-14.5); White Blood Count 8.9 K/mm3 (4.5-10.0)
[2024-07-31 15:41] LABS: Bilirubin Indirect 0.1 mg/dL (0-1.1); Lipase 54 U/L (23-300)
[2024-07-31 15:47] LABS: Alanine Aminotransferase 14 U/L (6-35); Albumin Level 3.5 g/dL (3.5-5.1); Alkaline Phosphatase 55 U/L (38-126); Anion Gap 4 mmol/L (4-12); Aspartate Amino Transferase 20 U/L (14-36); Bilirubin,Total 0.2 mg/dL (0.2-1.3); Blood Urea Nitrogen 15 mg/dL (7-17); Carbon Dioxide 26 mmol/L (22-30); Chloride 108 mmol/L (98-107); Estimated Glomerular Filt Rate > 60; Glucose 154 mg/dL (65-110); Potassium 4.4 mmol/L (3.4-5.0); Sodium 138 mmol/L (137-145); Total Protein 6.3 g/dL (6.3-8.2)
== END 2024-07-31 14:30 | disposition home or self-care (01) ==
PROVIDERS: PCP Clinical Nurse Specialist; Visit Provider Nurse Practitioner Family
DX: D72.829 Elevated white blood cell count, unspecified (principal); I10 Essential (primary) hypertension; K75.0 Abscess of liver; R10.11 Right upper quadrant pain
CPT/HCPCS: 36415; 80053; 82248; 83690; 85025

== ENCOUNTER 2024-08-14 09:30 | Outpatient (CLI) | payer MEDICARE, SELFPAY ==
--- NOTE | ~2024-08-14 | CT_ITS ---
CT ANGIOGRAM NECK AND HEAD History: Presence of cerebrospinal fluid drainage device. Technique: Axial noncontrast imaging of the brain was performed. Serial spiral axial images through t he head and neck were then obtained during arterial phase IV injection of 100 cc of Omnipaque 350. 3- D postprocessing and MIP images were then reconstructed on the remote workstation. Dose reduction yovany hnique was used on this scan by utilizing automated exposure control and iterative reconstruction yovany hnique. The dose-length product (DLP) was 1651.47 mGy-cm. COMPARISON: 07/08/2023 CTA neck findings: Bilateral vertebral arteries are patent. Bilateral common carotid, internal carot id, and external carotid arteries are patent. No large vessel occlusion or stenosis. No aneurysm. The proximal right internal carotid artery demonstrates 0% stenosis relative to the normal distal artery lumen diameter. The proximal left internal carotid artery demonstrates 0% stenosis relative to the n ormal distal artery lumen diameter. CTA head findings: Distal vertebral arteries, basilar artery, and posterior cerebral arteries are pat ent. Distal internal carotid arteries, middle cerebral arteries, and anterior cerebral arteries are p atent. No large vessel occlusion or stenosis. No aneurysm. Axial noncontrast imaging of brain demonstrates no evidence of acute infarct, intracranial hemorrhage , or mass lesion. Chronic white matter changes are present in the periventricular white matter, yoan tible moderate to severe chronic microvascular ischemic change. Ventriculus patient catheter enters v ia left parietal geovany hole, tip in the left lateral ventricle. Additional prior geovany hole or small cr aniotomy noted the left frontal bone. Craniotomy change noted at the right occipital region. The vent ricles and subarachnoid spaces are nondilated. Paranasal sinuses and mastoid air cells are clear. Impression: No vascular abnormality seen. Chronic microvascular ischemic changes throughout the white matter in the brain. Ventriculostomy shunt catheter in place. Reviewed, dictated and finalized at location M. Impression: No vascular abnormality seen. Chronic microvascular ischemic changes throughout the white matter in the brain . Ventriculostomy shunt catheter in place.
--- NOTE | ~2024-08-14 | CT_ITS ---
CT Scan of the Chest without Contrast: Clinical Indication: Lung cancer screening, nicotine dependence Technique: Contiguous sections were acquired throughout the chest without intravenous contrast. Dose reduction technique was used on this scan by utilizing automated exposure control and iterative recon struction technique. The dose-length product (DLP) was 193.57 mGy-cm. COMPARISON: 07/28/2023 Findings: There is no evidence of any significant mediastinal, hilar or axillary lymphadenopathy. Coronary emmanuel ry calcifications are present. There is no evidence of pleural or pericardial effusion. The lungs are clear. No pulmonary nodules or infiltrates are noted. Images through the upper abdomen reveal no abnormalities. Impression: Lung RADS 1: Negative. 12 month follow-up screening CT advised. Reviewed, dictated and finalized at location . Impression: Lung RADS 1: Negative. 12 month follow-up screening CT advised.
== END 2024-08-14 09:31 | disposition home or self-care (01) ==
PROVIDERS: PCP Clinical Nurse Specialist; Visit Provider Clinical Nurse Specialist
DX: Z12.2 Encounter for screening for malignant neoplasm of respiratory organs (principal); I67.82 Cerebral ischemia; G43.909 Migraine, unspecified, not intractable, without status migrainosus; G50.9 Disorder of trigeminal nerve, unspecified; R26.89 Other abnormalities of gait and mobility; Z87.891 Personal history of nicotine dependence; Z98.2 Presence of cerebrospinal fluid drainage device; Z98.890 Other specified postprocedural states
CPT/HCPCS: 70496; 70498; 71271; Q9967

== ENCOUNTER 2024-11-09 14:30 | Emergency (ER) | payer MEDICARE, SELFPAY ==
--- OUTSIDE RECORDS SUMMARY | 2024-09-28 10:00 | XMS_ITS ---
Author Organization [facility] Address [address] [place], [place] [id number] Care Team Providers Care Oil Furnace Installer Name Role Phone IVAN MASON Unavailable [phone] Santos Keller Unavailable Unavailable REASON FOR VISIT The patient presents with two foot concerns. She has a painful left great toenail on the outside nail border. This developed after she trimmed it herself. She is also having neuroma pain in her rightfoot between the 3rd and 4th toes Medications Medication SIG (Take, Route, Frequency, Duration) Notes Start Date End Date Status methylPREDNISolone 4 MG as directed Orally Not-Taking Medrol Dosepak ORAL Medrol DosepakOriginal MedicationMedrol Dosepak *Reorder from [facility] for eRx and Interaction Alerts* Not-Taking Eliquis 5 MG as directed Orally Active Lisinopril 40 MG 1 tablet Orally Once a day Active Metoprolol Succinate 25 MG 1 capsule Orally Once a day Active Gabapentin 300 MG 1 capsule Orally Once a day Active Tradjenta 5 MG 1 tablet Orally Once a day Active Simvastatin 40 MG 1 tablet in the evening Orally Once a day Active Gemtesa 75 MG 1 tablet Orally Once a day Active Jardiance 25 MG 1 tablet Orally Once a day Active Insulin Aspart 100 UNIT/ML as directed Injection Active Tresiba 100 UNIT/ML as directed Subcutaneous Active Escitalopram Oxalate 20 MG 1 tablet Orally Once a day Active busPIRone HCl 5 MG 1 tablet Orally Twice a day Active traZODone HCl 100 MG 1 tablet at bedtime Orally Once a day Active Colestipol HCl 1 GM 1 tablet Orally Twice a day Active Alendronate Sodium 10 MG 1 tablet 30 minutes before the first food, beverage or medicine of the day with plain water Orally Once a day Active metFORMIN HCl 1000 MG 1 tablet with a meal Orally Once a day Active Encounters Encounter Location Date Provider Diagnosis [facility] [place] [address] [place], [place] [id number] 09/28/2024 IVAN SNOOK Lesion of plantar nerve, 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 09/28/2024 Primary osteoarthritis , right ankle and foot (ICD-10 - M19.071) Arthritis, Osteo: I discussed anti-inflammatory treatment options and various means of immobilization with the patient. I educated the patient on icing and stretching, supportive shoegear, and the use of orthotic devices and bracing. 09/28/2024 Pain in right foot (ICD-10 - M79.671) 09/28/2024 Ingrowing nail (ICD-10 - L60.0) Slant Back Toenail: Following skin prep, the offending nail border was debrided without anesthesia. The patient was instructed on monitoring for infection or recurrence. Epsom Salt Foot Soaks: I advised the patient to soak feet in warm (not hot) water and epsom salt for 15 minutes, twice a day. Plan Of Treatment Treatment Notes Assessment Notes [...] the use of orthotic devices and bracing. Ingrowing nail Slant Back Toenail: Following skin prep, the offending nail border was debrided without anesthesia. The patient was instructed on monitoring for infection or recurrence. Epsom Salt Foot Soaks: I advised the patient to soak feet in warm (not hot) water and epsom salt for 15 minutes, twice a day. Next Appt Details Follow Up: 2 Weeks, Reason: See how slant back helped left great toe. See how injection helped right neuroma Provider Name:IVAN MASON, 03:20:00 PM, [address], [address], [phone], Progress Notes * ANNEMARIE MANZANO RDOB:[birth year] (74 yo F)Acc No.[id number]:09/28/2024 Patient: ANNEMARIE ROUSSEAU Provider: Nathaniel Mason DPM :1950 A ge:74 Y S ex:Female Date:09/28/2024 Address:[address] [place] [address] Subjective: * Chief Complaints: * 1 . The patient presents with two foot concerns. She has a painful left great toenail on the outside nail border. This developed after she trimmed it herself. She is also having neuroma pain in her right foot between the 3rd and 4th toes. * HPI: H PI: New Complaint E stablished patient presents with a new complaint. , Patient complains of an issue to shooting pains on the lateral boarder of the left great toenail. Patient states she thought it was due to an ingrown at first but now is not sure. , Duration of problem is 2 months.. F ollow Up Visit P santi presents for follow-up visit for right neuroma. Patient states that the Voltaren gel did not help with her painand she is wanting an injection. , MA: ho. * ROS: G eneral / Constitutional: Patient denies c hills, fever, weakness, night sweats. M usculoskeletal: Patient denies c hildhood foot problems, weakness. P atient complains of b union surgery, joint pain. P eripheral Vascular: Patient denies u lceration of feet, cold extremities. ? S kin: Patient denies u lcerations, discoloration. P atient complains of i ngrown nails. N eurologic: Patient denies b alance difficulty, confusion, difficulty speaking, dizziness. P atient complains of n euroma. * Medical History: * Family History: F ather: PRN - Father: . M other: PRN - Mother: . S ister: SIB - Sister: . * Social History: M igrated Social History: M igrated Social History: History of tobacco use : , Smoking Status : Former tobacco user. * Medications: T aking Alendronate Sodium 10 MG Tablet 1 tablet 30 minutes before the first food, beverage or medicine of the day with plain water Orally Once a day , Taking Colestipol HCl 1 GM Tablet 1 tablet Orally Twice a day , Taking metFORMIN HCl 1000 MG Tablet 1 tablet with a meal Orally Once a day , Taking traZODone HCl 100 MG Tablet 1 tablet at bedtime Orally Once a day , Taking busPIRone HCl 5 MG Tablet 1 tablet Orally Twice a day , Taking Escitalopram Oxalate 20 MG Tablet 1 tablet Orally Once a day , Taking Insulin Aspart 100 UNIT/ML Solution as directed Injection , Taking Tresiba 100 UNIT/ML Solution as directed Subcutaneous , Taking Gabapentin 300 MG Capsule 1 capsule Orally Once a day , Taking Jardiance 25 MG Tablet 1 tablet Orally Once a day , Taking Gemtesa 75 MG Tablet 1 tablet Orally Once a day , Taking Simvastatin 40 MG Tablet 1 tablet in the evening Orally Once a day , Taking Tradjenta 5 MG Tablet 1 tablet Orally Once a day , Taking Metoprolol Succinate 25 MG Capsule ER 24 Hour Sprinkle 1 capsule Orally Once a day , Taking Lisinopril 40 MG Tablet 1 tablet Orally Once a day , Taking Eliquis 5 MG Tablet as directed Orally , Not- Taking Medrol Dosepak ORAL , Notes to Pharmacist: Medrol DosepakOriginal MedicationMedrol Dosepak *Reorder from [facility] for eRx and Interaction Alerts*, Not-Taking methylPREDNISolone 4 MG Tablet Therapy Pack as directed Orally , Medication List reviewed and reconciled with the patient Objective: * Vitals: * Examination: C onstitutional: Constitutional T he patient is awake, alert, well developed, well groomed and well nourished. D ermatologic: Skin findings: S kin is warm, dry, supple with no breaks in the skin. Ingrown Nail N ail is incurvated on the, lateral border of the left great toenail, There is erythema present., There is pain on palpation., There is no drainage. V ascular: Dorsalis pedis pulse: 2 /4, bilateral. Posterior tibial pulse: 2 /4, bilateral. Capillary refill: l ess than 3 seconds. Edema: N o edema, bilateral. N eurologic: Mulders sign: p ositive, right. Gross sensation G ross sensation is intact to light touch.? M usculoskeletal: Muscle Strength M uscle strength is 5/5 in regards to dorsiflexion, plantarflexion, inversion, and eversion in bilateral lower extremities. Pain on palpation p ain on palpation to the right 3rd interspace. Assessment: * Assessment: 1. L esion of plantar nerve, right lower limb - G57.61 (Primary) 2 . P rimary osteoarthritis, right ankle and foot - M19.071 3 . P ain in right foot - M79.671 4 . I ngrowing nail - L60.0 Plan: * Treatment: 2. P rimary osteoarthritis, right ankle and foot Notes: Arthritis, Osteo: I discussed anti-inflammatory treatment options and various means of immobilization with the patient. I educated the patient on icing and stretching, supportive shoegear, and the use of orthotic devices and bracing. 3. I ngrowing nail Notes: Slant Back Toenail: Following skin prep, the offending nail border was debrided without anesthesia. The patient was instructed on monitoring for infection or recurrence. Epsom Salt Foot Soaks: I advised the patient to soak feet in warm (not hot) water and epsom salt for 15 minutes, twice a day. * Procedure Codes: 6 4455 N BLOCK INJ, PLANTAR DIGIT, Modifiers: RT * Follow Up: 2 Weeks (Reason: See how slant back helped left great toe. See how injection helped right neuroma) * Billing Information: * Visit Code: 86456 Office Visit, Est Pt., Level 3. Modifiers: 25 * Procedure Codes: 51367 N BLOCK INJ, PLANTAR DIGIT. 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 , Patient complains of an issue to shooting pains on the lateral boarder of the left great toenail. Patient states she thought it was due to an ingrown at first but now is not sure. , Duration of problem is 2 months. Follow Up Visit Patient presents for follow-up visit for right neuroma. Patient states that the Voltaren gel did not help with her painand she is wanting an injection. , MA: mca Examination Category Sub-Category Detail Notes Category Not es Dermatologic Skin findings: Skin is warm, dr y, supple with no breaks in the skin Ingrown Nail Nail is incurvated o n the, lateral border of the left great toenail, There is erythema present., There is pain on palpation., There is no drainage Neurologic Mulders sign: positive, right Gross sensation Gross sensation is i ntact to light touch Vascular Dorsalis pedis pulse: 2/4, bilateral Edema: No edema, bilateral Capillary refill: less than 3 seconds Posterior tibial pulse: 2/4, bilateral Musculoskeletal Muscle Strength Muscle strength is 5/5 in regards to dorsiflexion, plantarflexion, inversion, and eversion in bilateral lower extremities Pain on palpation pain on palpation to the right 3rd interspace Constitutional Constitutional The patient is a wake, alert, well developed, well groomed and well nourished
--- OUTSIDE RECORDS SUMMARY | 2024-10-12 10:00 | XMS_ITS ---
Author Organization [facility] Address [address] [place], [place] [id number] Care Team Providers Care Master Pilot Name Role Phone IVAN MASON Unavailable [phone] Santos Keller Unavailable Unavailable REASON FOR VISIT The neuroma injection helped somewhat, but there is still pain in the ball of the right foot between the 3rd and 4th toes. She also has thick painful toenails of both feet that hurt with shoes Medications Medication SIG (Take, Route, Frequency, Duration) Notes Start Date End Date Status busPIRone HCl 5 MG 1 tablet Orally Twice a day Active Escitalopram Oxalate 20 MG 1 tablet Orally Once a day Active Insulin Aspart 100 UNIT/ML as directed Injection Active Tresiba 100 UNIT/ML as directed Subcutaneous Active Gabapentin 300 MG 1 capsule Orally Once a day Active Alendronate Sodium 10 MG 1 tablet 30 minutes before the first food, beverage or medicine of the day with plain water Orally Once a day Active Colestipol HCl 1 GM 1 tablet Orally Twice a day Active metFORMIN HCl 1000 MG 1 tablet with a meal Orally Once a day Active traZODone HCl 100 MG 1 tablet at bedtime Orally Once a day Active methylPREDNISolone 4 MG as directed Orally Not-Taking Tradjenta 5 MG 1 tablet Orally Once a day Active Metoprolol Succinate 25 MG 1 capsule Orally Once a day Active Lisinopril 40 MG 1 tablet Orally Once a day Active Eliquis 5 MG as directed Orally Active Medrol Dosepak ORAL Medrol DosepakOriginal MedicationMedrol Dosepak *Reorder from 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 10/12/2024 Primary osteoarthritis , right ankle and foot (ICD-10 - M19.071) Arthritis, Osteo: I discussed anti-inflammatory treatment options and various means of immobilization with the patient. I educated the patient on icing and stretching, supportive shoegear, and the use of orthotic devices and bracing. 10/12/2024 Pain in right foot (ICD-10 - M79.671) 10/12/2024 Tinea unguium (ICD-10 - B35.1) FUNGAL TOENAILS: Discussed various treatment options for fungal toenails including debridement, topical antifungals, oral antifungals, toenail avulsion, or toenail matrixectomy. NAIL DEBRIDEMENT: Nails 1-5 Bilateral were debrided extensively with nail nippers and emery board, reducing length and girth to pink healthy tissue with any subungual debris and necrotic tissue removed Plan Of Treatment Treatment Notes Assessment Notes [...] the use of orthotic devices and bracing. Tinea unguium FUNGAL TOENAILS: Discussed various treatment options for fungal toenails including debridement, topical antifungals, oral antifungals, toenail avulsion, or toenail matrixectomy. NAIL DEBRIDEMENT: Nails 1-5 Bilateral were debrided extensively with nail nippers and emery board, reducing length and girth to pink healthy tissue with any subungual debris and necrotic tissue removed Next Appt Details Follow Up: 3 Months, Reason: At risk foot care Provider Name:IVAN MAOSN, 03:20:00 PM, [address], [address], [id number], Progress Notes * ANNEMARIE MANZANO RDOB:[birth year] (74 yo F)Acc No.[id number]:10/12/2024 Patient: ANNEMARIE ROUSSEAU R Provider: Ibis Mason DPM :1950 A ge:74 Y S ex:Female Date:10/12/2024 Address:[address] [place] [address] Subjective: * Chief Complaints: * 1 . The neuroma injection helped somewhat, but there is still pain in the ball of the right foot between the 3rd and 4th toes. She also has thick painful toenails of both feet that hurt with shoes. * HPI: H PI: Follow Up Visit P santi presents for follow up visit for right foot injection., Patient states their problem is, unchanged. Helped for a bit but pain is starting to come back., MA: tom. * ROS: G eneral / Constitutional: Patient [...] Pharmacist: Medrol DosepakOriginal MedicationMedrol Dosepak *Reorder from [employer] for eRx and Interaction Alerts*, Not-Taking methylPREDNISolone 4 MG Tablet Therapy Pack as directed Orally , Medication List reviewed and reconciled with the patient Objective: * Vitals: * Examination: C onstitutional: Constitutional T he patient is awake, alert, well developed, well groomed and well nourished. D ermatologic: Skin findings: S kin is thin, atrophic and lacking pedal hair. Nail pathology: N ails 1-5 bilateral are elongated, thick, discolored, and dystrophic with subungual debris. They are painful to palpation. ? V ascular: Dorsalis pedis pulse: 2 /4, [...] in right foot - M79.671 4 . T inea unguium - B35.1 Plan: * Treatment: 2. P rimary osteoarthritis, right ankle and foot Notes: Arthritis, Osteo: I discussed anti-inflammatory treatment options and various means of immobilization with the patient. I educated the patient on icing and stretching, supportive shoegear, and the use of orthotic devices and bracing. 3. T inea unguium Notes: FUNGAL TOENAILS: Discussed various treatment options for fungal toenails including debridement, topical antifungals, oral antifungals, toenail avulsion, or toenail matrixectomy. NAIL DEBRIDEMENT: Nails 1-5 Bilateral were debrided extensively with nail nippers and emery board, reducing length and girth to pink healthy tissue with any subungual debris and necrotic tissue removed * Procedure Codes: 6 4455 [address] BLOCK INJ, PLANTAR DIGIT, Modifiers: RT * Follow Up: 3 Months (Reason: At risk foot care) * Billing Information: * Visit Code: 19793 Office Visit, Est Pt., Level 3. Modifiers: 25 * Procedure Codes: 03215 N BLOCK INJ, PLANTAR DIGIT. Modifiers: RT * Electronic signature of IVAN MASON DPM on 11/09/2024 at 02:49 PM CDT Sign off status: Pending * Provider: Ibis Mason DPM Date: 0 10/12/2024 Generated for [place] rosales/Sera/Raffy on: 0 11/09/2024 02:49 PM CDT History and Physical Notes * HPI (History of Present Illness) Category Sub-Category Detail Notes Category Not es HPI Follow Up Visit Patient presents for follow up visit for right foot injection., Patient states their problem is, unchanged. Helped for a bit but pain is starting to come back., MA: mf Examination Category Sub-Category Detail Notes Category Not es Dermatologic Skin findings: Skin is thin, at rophic and lacking pedal hair Nail pathology: Nails 1-5 bilateral are elongated, thick, discolored, and dystrophic [...]
--- NOTE | ~2024-11-09 | XR_ITS ---
EXAMINATION: XR wrist RT min 3V, 11/09/2024 15:02 CDT HISTORY: fall COMPARISON: No comparisons available. Findings: No acute fracture or malalignment. Severe degenerative changes of the first metacarpal carpal joint. Soft tissue swelling. Impression: No acute fracture or malalignment. Reviewed, dictated and finalized at location A. Impression: No acute fracture or malalignment.
--- OUTSIDE RECORDS SUMMARY | 2024-11-09 14:49 | XMS_ITS | Patient Health Record ---
Author Organization [facility] Address [address] [place], [place] [id number] Care Team Providers Care Obstetrics Gyn Name Role Phone IVAN MASON Unavailable [phone] Santos Keller Unavailable Unavailable Allergies No Known Allergies Reason For Referral No Information Medications Medication SIG (Take, Route, Frequency, Duration) Notes Start Date End Date Status Escitalopram Oxalate 20 MG 1 tablet Orally Once a day Active busPIRone HCl 5 MG 1 tablet Orally Twice a day Active Eliquis 5 MG as directed Orally Active Gemtesa 75 MG 1 tablet Orally Once a day Active Jardiance 25 MG 1 tablet Orally Once a day Active Gabapentin 300 MG 1 capsule Orally Once a day Active Tresiba 100 UNIT/ML as directed Subcutaneous Active traZODone HCl 100 MG 1 tablet at bedtime Orally Once a day Active Lisinopril 40 MG 1 tablet Orally Once a day Active metFORMIN HCl 1000 MG 1 tablet with a meal Orally Once a day Active Metoprolol Succinate 25 MG 1 capsule Orally Once a day Active Colestipol HCl 1 GM 1 tablet Orally Twice a day Active Tradjenta 5 MG 1 tablet Orally Once a day Active Alendronate Sodium 10 MG 1 tablet 30 minutes before the first food, beverage or medicine of the day with plain water Orally Once a day Active Simvastatin 40 MG 1 tablet in the evening Orally Once a day Active Insulin Aspart 100 UNIT/ML as directed Injection Active methylPREDNISolone 4 MG as directed Orally Not-Taking Medrol Dosepak ORAL Medrol DosepakOriginal MedicationMedrol Dosepak *Reorder from [facility] for eRx and Interaction Alerts* 1 Not-Taking Vital Signs Height-cm 165.10 cm 08/10/2024 Weight-kg 83.46 kg 08/10/2024 Height 65.00 in 08/10/2024 Weight 184 lbs 08/10/2024 BMI 30.62 kg/m2 08/10/2024 Encounters Encounter Location Date Provider Diagnosis [facility] [address] [place] [id number] 09/28/2024 IVAN SNOOK Lesion of plantar nerve, 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 ; Primary osteoarthritis, right ankle and foot M19.071 ; Pain in right foot M79.671 and Ingrowing nail L60.0 [facility] [address] [place] [id number] 10/12/2024 IVAN SNOOK Lesion of plantar nerve, 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 ; Primary osteoarthritis, right ankle and foot M19.071 ; Pain in right foot M79.671 and Tinea unguium B35.1 [facility] [address] [place] [id number] 11/09/2024 IVAN SNOOK Lesion of plantar nerve, 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 ; Primary osteoarthritis, right ankle and foot M19.071 and Pain in right foot M79.671 [facility] [address] [place] [id number] 12/09/2023 IVAN SNOOK Lesion of plantar nerve, 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 ; Primary osteoarthritis, right ankle and foot M19.071 and Pain in right foot M79.671 [facility] [address] [place] [id number] 08/10/2024 IVAN SNOOK Primary osteoarthritis, right ankle and foot M19.071 ; Osteophyte, right foot M25.774 ; Pain in right ankle and joints of right foot M25.571 and Pain in right foot M79.671 Assessments [...] was injected to the right sinus tarsi 08/10/2024 Primary osteoarthritis , right ankle and foot (ICD-10 - M19.071) Arthritis, Osteo: I discussed anti-inflammatory treatment options and various means of immobilization with the patient. I educated the patient on icing and stretching, supportive shoegear, and the use of orthotic devices and bracing. Voltaren Gel: Recommend that the patient obtain over the counter topical Voltaren Gel 1%. I educated the patient on its use. 08/10/2024 Osteophyte, right foot (ICD-10 - M25.774) 09/28/2024 Lesion of plantar nerve, right lower [...] use of orthotic devices and bracing. 10/12/2024 Lesion of plantar nerve, right lower [...] the use of orthotic devices and bracing. 11/09/2024 Lesion of plantar nerve, right lower limb (ICD-10 - G57.61) Neuroma: Discussed various treatments with the patient regarding neuroma. Discussed conservative care consisting of padding, wider shoes, anti-inflammatorie s, and orthotics. Discussed surgical treatment options and answered all questions about the intra-operative and post-operative treatment course. 11/09/2024 Primary osteoarthritis , right ankle and foot (ICD-10 - M19.071) Arthritis, Osteo: I discussed anti-inflammatory treatment options and various means of immobilization with the patient. I educated the patient on icing and stretching, supportive shoegear, and the use of orthotic devices and bracing. 11/09/2024 Pain in right foot (ICD-10 - M79.671) 10/12/2024 Pain in right foot (ICD-10 - M79.671) 09/28/2024 Pain in right foot (ICD-10 - M79.671) 08/10/2024 Pain in right ankle and joints of right foot (ICD-10 - M25.571) Exostosis: Discussed various treatments for the exostosis including padding, extra-depth shoes, and surgical resection. 12/09/2023 Pain in right foot (ICD-10 - M79.671) 09/28/2024 Ingrowing nail (ICD-10 - L60.0) Slant Back Toenail: Following skin prep, the offending nail border was debrided without anesthesia. The patient was instructed on monitoring for infection or recurrence. Epsom Salt Foot Soaks: I advised the patient to soak feet in warm (not hot) water and epsom salt for 15 minutes, twice a day. 08/10/2024 Pain in right foot (ICD-10 - M79.671) [...] and necrotic tissue removed Plan Of Treatment Next Appt Details Provider Name:IVAN ISABELLA, 03:20:00 PM, [address], [facility], [place], [place], [id number], Insurance Providers Payer Name Payer Address Payer Phone Subscriber Number Group Number Insured Name Patient Relationship to Insured Coverage Start Date Coverage End Date [employer] [address] [place] [phone] [id number] ANNEMARIE MANZANO Self - patient is the insured
--- OUTSIDE RECORDS SUMMARY | 2024-11-09 14:49 | XMS_ITS | Clinical Summary ---
Author Organization [facility] Address [address] [place] [address] Care Team Providers Care Epidemiologist Name Role Phone Sayda Ignacio MD Unavailable [phone] Urbano Portillo MD Unavailable [phone] Perry Fu DPM Unavailable Carmel Tristan MD [...] 03/19/2019 Assessment & Plan (03/22/2019 12:29 PM SPECIFICATION WRITER): Stable. Cont. Current meds. Type 2 diabetes mellitus wit h hyperglycemia, without long-term current use of insulin 03/19/2019 Assessment & Plan (03/22/2019 12:30 PM SPECIFICATION WRITER): Labs ordered, will follow. 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 05/17/2016 03/19/2019 Hyperlipidemia [...] on file Legal Sex Female 12:20 PM SPECIFICATION WRITER Gender Identity Not on file Sexual Orientation Not on file Obstetrics History Last Filed Vital Signs Vital Sign Reading Time Taken Comments Blood Pressure 126/74 03/31/2019 2:59 PM SPECIFICATION WRITER Pulse 73 03/19/2019 1:36 PM SPECIFICATION WRITER Temperature 36.8 C (98.2 F) 03/19/2019 1:36 PM SPECIFICATION WRITER Respiratory Rate 18 03/19/2019 1:36 PM SPECIFICATION WRITER Oxygen Saturation 97% 03/19/2019 1:36 PM SPECIFICATION WRITER Inhaled Oxygen Concentration - - Weight 89.4 kg (197 lb 1.6 oz) 03/31/2019 2:59 P M SPECIFICATION WRITER Height 165.1 cm (5' 5) 03/31/2019 2:59 PM SPECIFICATION WRITER Body Mass Index 32.8 03/31/2019 2:59 PM SPECIFICATION WRITER Plan of Treatment Not on file Insurance [employer] MEDICARE Care Teams Epidemiologist Relationship Specialty Start Date End Date Sayda Ignacio MD Internal Medicine 03/19/19 Urbano Portillo MD Referring Physician Neurosurgery 03/19/19 Perry Fu DPM Referring Physician Podiatry 03/19/19 [place] [id number] [address] Consulting Physician Cardiology 03/19/19
--- OUTSIDE RECORDS SUMMARY | 2024-11-09 14:49 | XMS_ITS | Clinical Summary ---
Author Organization [facility] Address [facility] [place] [address] Care Team Providers Care Canceling Machine Operator Name Role Phone Carmel Tristan MD Unavailable [phone] Santos Keller DO Primary Care Provider [phone] Urbano Taylor MD Unavailable [phone] Allergies Active Allergy Reactions Criticality Noted Date [...] 60) Muscular dystr ophy Sister (Age 52) PA Social History Tobacco Use Types Packs/Day Years Used Date Smoking Tobacco: Former Cigarettes 2014 Smokeless Tobacco: Never Comments:off and on for 30 y ears Alcohol Use Standard Drinks/Week Comments Not Currently 0 (1 standard drink = 0.6 oz pur e alcohol) Comments Unknown Sex and Gender Information Value Date Recorded Sex Assigned at Not on file Legal Sex Female 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 Gender Identity Not on file Sexual Orientation [...] A M CDT Height 165.1 cm (5' 5) 04/23/2019 9:00 AM BURGLAR ALARM MECHANIC Body Mass Index 32.87 04/23/2019 9:00 AM BURGLAR ALARM MECHANIC Plan of Treatment Health Maintenance Due Date Last Done Comments Colorectal Cancer Screening Colonoscopy (10 Years) 1950 Hepatitis C 01/22/1970 DTaP, Tdap and Td Vaccines ( 1 - Tdap) 01/22/1971 Mammogram Screening 1992 Zoster Vaccines (1 of 2) 01/22/2002 Annual Medicare Wellness Visit 01/22/2017 Dexa Scan (General) 01/22/2017 COVID-19 Vaccine ( - 2023-2 5 season) 2024 RSV Immunization or 60+ Years (1 - 1-dose 75+ series) 01/22/2027 Pneumococcal Vaccine: 50+ Years Completed 11/18/2018, 01/15/2018, 02/26/2014 Meningococcal B Vaccine Aged Out No l onger eligible based on patient's age to complete this topic Meningococcal Vaccine Aged Out No owen maicol eligible based on patient's age to complete this topic RSV Immunizations Under 20 Months Aged Out No longer eligible b ased on patient's age to complete this topic Medical Devices Implanted Type Area Post Anesthesia Care Unit Nurse Device Identifier Shelf Expiration Date Model / Serial / Lot 3.0 X 16 Asnis Screw Implanted:Qty: 1 on 05/01/2019 by Perry Fu DPM at [facility] Screw Right: Foot [id number] / / 3.0 X 18 Asnis Screw Implanted:Qty: 1 on 05/01/2019 by Perry Fu DPM at [facility] Screw Right: Foot [employer] [id number] / / Osteosynthesis Compression Staple Implanted:Qty: 1 on 05/01/2019 by Perry Fu DPM at [facility] Staple Right: Foot [employer] 12/19/2023 [id number] / / [id number] Description:COMPRESSION STAP LE Insurance [employer] Care Teams Canceling Machine Operator Relationship Specialty Start Date End Date Santos Keller DO [address] [facility] [address] [place] [id number] PCP - General INTERNAL MEDICINE 04/23/19 [place] [address] [place] [address] CARDIOVASCULAR DISEASE 04/23/19 Urbano Taylor MD [address] [place] [address] NEUROLOGICAL SURGERY 04/23/19
--- OUTSIDE RECORDS SUMMARY | 2024-11-09 14:49 | XMS_ITS | Clinical Summary ---
Author Organization [facility] Address [address] [facility] [place] [address] Care Team Providers Care Imaging Engineer Name Role Phone Santos Keller DO Primary Care Provider [phone] Source Comments [facility],non-owned Affiliates and Associated Physician Practices is amultiple site organization consisting of ambulatory clinics and hospital sitesin [place], [place], [place] and [place]. This disclosure is being madepursuant to the Care Everywhere program and may not contain all information available regarding this patient. Last updated 17.[facility] Allergies Active Allergy Reactions Criticality Noted Date Comments Adhesive Sensitivity Rash High 03/29/2015 Contrast-Iodinated Agents Fo r Ct/Other Itching 02/08/2011 Hydromorphone Itching High 03/29/2015 Hydromorphone Hcl Itching High 12/26/2010 Iohexol Itching 02/08/2011 Latex Itching,Rash Medium 03/29/2015 Morphine Urticaria,Itching High 03/02/2009 Morphine Sulfate Skin Reactions,Itching 010 Medications * Be aware that medications may not be up to date on this document. Always verify current medications with the patient. Glucose Blood (BLOOD GLUCOSE TEST STRIPS) STRP Use 1 strip TID. 300 strip 12 7 Active escitalopram (LEXAPRO) 20 MG tablet Take 1 [...] ULTRAFINE II) 31G X 5/16 0.5 ML syringeIndicat ions:Type 2 diabetes mellitus with hyperglycemia, with long-term current use of insulin (HCC) 2 times daily 200 Each 11 8 Active Additional Information Patient not taking.Reported on 08/11/2024 baclofen (LIORESAL) 10 MG tablet 8 Active [...] Active Gemtesa 75 MG TABS 3 Active alendronate (Fosamax) 70 MG tablet TAKE 1 TABLET BY MOUTH WEEKLY 5 Active D3-50 1.25 MG (52118 UT) Take 1 capsule by mouth 4 Active colestipol (Colestid) 1 GM tablet Take 1 (one) tablet by mouth 2 times daily 5 Active Jardiance 25 MG tablet Take 1 (one) tablet by mouth once daily 5 Active NovoLOG FLEXPEN pen INJECT SUBCUTANEOUSLY 5 UNITS BEFORE BREAKFAST, 5 UNITS BEFORE LUNCH AND 7 UNITS BEFORE DINNER FOR GLUCOSE. ADD SLIDING SCALE 1 UNIT FOR EVERY 50 POINTS GREATER THAN 200 BEFORE MEALS. MAXIMUM DAILY DOSE: 32 UNITS Active Basaglar KwikPen (Basaglar) pen INJECT 16 UNITS SUBCUTANEOUSLY EVERY MORNING 5 Active B-D ULTRAFINE III SHORT PEN 31G X 8 MM needle 4 Active Active Problems Problem Noted Date Diagnosed Date Trigeminal neuralgia 12/28/2020 Anxiety 08/18/2018 Primary hypertension 05/19/2018 Atrial fibrillation 04/28/2018 S/P rotator cuff repair 03/18/2018 S/P QA REVIEWER shunt 10/31/2017 Overview (10/31/2017): Strata valve: 10/31/17 found @ 2.0 jw Arthritis of right acromioclavicular joint 09/17 Supraspinatus tendon tear, left, subsequent enco unter 08/20/2017 Complete tear of right rotator cuff 07/23/2017 Tendinopathy of rotator cuff, left 07/23/2017 Type 2 diabetes mellitus with hyperglycemia 04/20 salvage determiner current use of insulin 05/17/2016 Type 2 [...] Encounters Date Type Department Care Team Description 08/11/2024 8:45 AM CDT Office Visit [facility] - Neurosurgery [address] [facility], [place] [address] Adam Hyman MD S/P QA REVIEWER shunt (Primary Dx) 08/11/2024 6:30 AM CDT - 08/11/2024 11:59 PM CDT Hospital Encounter [facility] MRI [address] [place] [address] Adam Hyman MD Discharge Disposition: Home or Self Care 08/11/2024 Travel from Last 3 Months Immunizations Immunization [...] on file Legal Sex Female 5:49 AM JIG GRINDER SET UP OPERATOR Gender Identity Not on file Sexual Orientation Not on file Last Filed Vital Signs Vital Sign Reading Time Taken Comments Blood Pressure 123/79 08/11/2024 8:42 AM CDT Pulse 81 08/11/2024 8:42 AM CDT Temperature 36.3 C (97.3 F) 08/11/2024 8:42 AM CDT Respiratory Rate 18 04/03/2022 3:42 PM JIG GRINDER SET UP OPERATOR Oxygen Saturation 98% 08/11/2024 8:42 AM CDT Inhaled Oxygen Concentration - - Weight 83.5 kg (184 lb) 08/11/2024 8:42 AM CDT Height 165.1 cm (5' 5) 08/11/2024 8:42 AM CDT Body Mass Index 30.62 08/11/2024 8:42 AM CDT Plan of Treatment Health Maintenance Due Date [...] 01/22/1971 ZOSTER VACCINE (1 of 2) 01/22/2002 Respiratory Syncytial Virus (RSV) Vaccine Pt: or over 60 yrs (1 - Risk 60-74 years 1-dose series) 2012 PNEUMOCOCCAL VACCINE 50+ (2 of 2 - PCV) 02/26/2015 02/26/2014 DIABETES-SERUM CREATININE 04/07/20162015, 02/22/2015, 02/22/2014, Additional history exists DIABETES RETINOPATHY SCREENING 05/20/2017 DIABETES-HGB A1C 06/18/2018 12/19/2017, , 08/29/2015, Additional history exists DIABETES-FOOT EXAM WITH MONOFILAMENT 07/18/2018 07/18/2017, 07/18/2017 DEPRESSION SCREENING 02/19/2024 DIABETES - URINE PROTEIN SCREENING 02/19/2024 02/22/2015, 04/22/2013, 08/12/2010 MEDICARE AWV CALENDAR YEAR 2024 COVID-19 VACCINE ( season) 2024 INFLUENZA VACCINE (#1) 2024 , 11/19/2019, 11/06/2012 BONE DENSITY TESTING Completed 10/01/2012 HEPATITIS B [...] interventions Rest Medical Devices Implanted Type Area Special Service Officer Device Identifier Shelf Expiration Date Model / Serial / Lot Air Quality Manager Shunt [employer] Description:stratta II Healix Advance Br [place] With Dynacord Implanted:Qty: 3 on 10/14/2017 by Ron Yan MD at [facility] Right: Shoulder [employer] 03/20/2020 [id number] / / [id number] Healix Advance Knotless Br [place] Implanted:Qty: 1 on 10/14/2017 by Ron Yan MD at [facility] Right: Shoulder [employer] 05/18/2020 [id number] / / [id number] Procedures Procedure Name Priority Date/Time Associated Diagnosis Comments MRI BRAIN WWO CONTRAST Routine 08/11/2024 7:51 AM CDT Unsteady gait Word finding difficulty HEMOGLOBIN A1C - POINT OF CARE (AMB) [facility] Routine 12/19/2017 3:04 PM CDT Uncontrolled type 2 diabetes mellitus with hyperglycemia COMPREHENSIVE METABOLIC PANEL STAT 04/07/2015 12:53 PM JIG GRINDER SET UP OPERATOR MICROALB/CREAT RATIO URINE RANDOM PANEL Routine 02/22/2015 9:56 AM JIG GRINDER SET UP OPERATOR DEXA BONE DENSITY AXIAL SKELETON Routine 10/01/2012 2:26 PM CDT from Last 3 Months or Most Recently Relevant to Health Maintenance Results * MRI Brain Wwo Contrast (08/11/2024 7:51 AM CDT) Anatomical Region Laterality Modality Head Magnetic Resonan ce 08/16/2024 11:4 4 AM CDT Impressions 08/16/2024 11:54 AM CDT IMPRESSION: 1. No acute intracranial process. Specifically, no acute infarct or acute intracranial hemorrhage. 2. Postoperative changes of right retromastoid craniectomy with mild encephalomalacia in the lateral aspect of the right cerebellar hemisphere. Postoperative changes of left frontal craniotomy with a small amount of encephalomalacia in the left frontal lobe. 3. Redemonstration of a left posterior parietal approach ventriculoperitoneal shunt. There is significant blooming artifacts obscuring a portion of the left parieto-occipital lobes and the left cerebellar hemisphere. 4. Mild ventriculomegaly involving the lateral inserted ventricles is grossly unchanged. No mass effect or midline shift is seen. 5. Extensive periventricular, subcortical, and pontine white matter FLAIR hyperintensities are nonspecific findings likely represent sequelae of chronic small vessel ischemic disease. > Interpreting Provider: Israel Yancey MD on 08/16/2024 11:54 AM Narrative 08/16/2024 11:54 AM CDT PROCEDURE: MRI BRAIN WWO CONTRAST, DATE/TIME OF EXAM: 08/11/2024 7:53 AM, LOCATION [facility] INDICATION: R26.81: Unsteady gait R47.89: Word finding difficulty ADDITIONAL CLINICAL INFORMATION: Ordering Provider Reason For Exam: Technologist Note: Additional: TECHNIQUE: MRI of the brain was performed prior to and following the uneventful administration of intravenous contrast according to standard protocol. CONTRAST: GADOBUTROL 1 MMOL/ML IV [facility] SO:8.4 mL COMPARISON: Comparison is made to a prior noncontrast head CT dated 08/04/2024. FINDINGS: Postoperative changes of right retromastoid craniectomy with mild encephalomalacia in the lateral aspect of the right cerebellar hemisphere. Postoperative changes of left frontal craniotomy with a small amount of encephalomalacia in the left frontal lobe. Redemonstration of a left posterior parietal approach ventriculoperitoneal shunt. There is significant blooming artifacts obscuring a portion of the left parieto-occipital lobes and the left cerebellar hemisphere. No evidence of acute cerebral infarction is seen. No evidence of acute or chronic hemorrhage is identified. Mild ventriculomegaly involving the lateral inserted ventricles is grossly unchanged. No mass effect or midline shift is seen. Extensive periventricular, subcortical, and pontine white matter FLAIR hyperintensities are nonspecific findings likely represent sequelae of chronic small vessel ischemic disease. No enhancing lesions are identified. The corpus callosum and sella appear normal. The posterior fossa, brainstem, and craniocervical junction appear normal. Other than bilateral cataract extractions, the visualized portions of the orbits, paranasal sinuses, and mastoids appear normal. Normal flow voids are demonstrated in the carotid arteries and basilar artery. The calvarium and visualized cervical spine appear normal. Procedure Note Israel Yancey MD - 08/16/2024 PROCEDURE: MRI BRAIN WWO CONTRAST, DATE/TIME OF EXAM: 08/11/2024 7:53AM, LOCATION [facility] INDICATION: R26.81: Unsteady gait R47.89: Word finding difficulty ADDITIONAL CLINICAL INFORMATION: Ordering Provider Reason For Exam: Technologist Note: Additional: TECHNIQUE: MRI of the brain was performed prior to and following the uneventful administration of intravenous contrast according to standard protocol. CONTRAST: GADOBUTROL 1 MMOL/ML IV [facility] SO:8.4 mL COMPARISON: Comparison is made to a prior noncontrast head CT dated 08/04/2024. FINDINGS: Postoperative changes of right retromastoid craniectomy with mild encephalomalacia in the lateral aspect of the right cerebellarhemisphere. Postoperative changes of left frontal craniotomy with a small amount of encephalomalacia in the left frontal lobe. Redemonstration of a left posterior parietal approachventriculoperitoneal shunt. There is significant blooming artifacts obscuring a portion ofthe left parieto-occipital lobes and the left cerebellar hemisphere. No evidence of acute cerebral infarction is seen. No evidence of acuteor chronic hemorrhage is identified. Mild ventriculomegaly involving the lateral inserted ventricles is grossly unchanged. No mass effect ormidline shift is seen. Extensive periventricular, subcortical, and pontine white matter FLAIR hyperintensities are nonspecific findings likely represent sequelae of chronic small vessel ischemic disease. No enhancing lesionsare identified. The corpus callosum and sella appear normal. The posterior fossa, brainstem, and craniocervical junction appear normal. Other than bilateral cataract extractions, the visualized portions ofthe orbits, paranasal sinuses, and mastoids appear normal. Normal flow voids are demonstrated in the carotid arteries and basilar artery. Thecalvarium and visualized cervical spine appear normal. IMPRESSION: 1. No acute intracranial process. Specifically, no acute infarct oracute intracranial hemorrhage. 2. Postoperative changes of right retromastoid craniectomy with mild encephalomalacia in the lateral aspect of the right cerebellarhemisphere. Postoperative changes of left frontal craniotomy with a small amount of encephalomalacia in the left frontal lobe. 3. Redemonstration of a left posterior parietal approach ventriculoperitoneal shunt. There is significant blooming artifacts obscuring a portion of the left parieto-occipital lobes and the left cerebellar hemisphere. 4. Mild ventriculomegaly involving the lateral inserted ventricles is grossly unchanged. No mass effect or midline shift is seen. 5. Extensive periventricular, subcortical, and pontine white matterFLAIR hyperintensities are nonspecific findings likely represent sequelae of chronic small vessel ischemic disease. > Interpreting Provider: Israel Yancey MD on 08/16/2024 11:54 AM Adam Hyman MD MR ORDERABLES Final Result * HEMOGLOBIN A1C - POINT OF CARE (AMB) U (12/19/2017 3:04 PM CDT) Pathologist [facility] Hemoglobin A1c POCT 7.5 [facility] POCT TESTING Blood BLOOD SPECIMEN / Unknown 12/19/2017 3:04 PM CDT Isaiah Rodriguez MD LAB - POINT OF CARE ORDERABLES Final Result [facility] POCT TESTING [address] [phone] * (ABNORMAL) COMPREHENSIVE METABOLIC PANEL (04/07/2015 12:53 PM JIG GRINDER SET UP OPERATOR) Pathologist [facility] BUN 24 7 - 26 mg/dL [facility] Creatinine 1.0 0.6 - 1.2 mg/dL [facility] Sodium 137 136 - 145 mmol/L [facility] Potassium 5.0(H) 3.5 - 4.5 mmol/L [facility] Chloride 105 98 - 107 mmol/L [facility] CO2 23 22 - 29 mmol/L [facility] Glucose 110 70 - 115 mg/dL [facility] Calcium 9.0 8.4 - 10.2 mg/dL [facility] Protein Total 6.7 6.0 - 8.3 g/dL [facility] Albumin 3.3(L) 3.4 - 5.0 g/dL [facility] Bilirubin Total 0.3 0.2 - 1.2 mg/dL [facility] Alkaline Phosphatase 81 40 - 150 Units/L [facility] ALT 13 0 - 55 Units/L [facility] AST 12 5 - 34 Units/L [facility] Anion Gap 14 8 - 18 [facility] BUN/Creatinine Ratio 24(H) 7 - 23 [facility] Osmolality Calculated 275 270 - 300 mOsm/kg [facility] Albumin/Globulin Ratio 1.0(L) 1.1 - 2.3 [facility] eGFR 56(L) >60 mL/min/1.7 3 m2 [facility] Blood specimen (specimen) BLOOD SPECIMEN / Unknown 04/07/2015 12:53 PM JIG GRINDER SET UP OPERATOR 04/07/2015 1:05 PM JIG GRINDER SET UP OPERATOR us Historical Provider LAB - CHEMISTRY ORDERABLE S Final Result Performing Organization Address City/State/[facility] Co de Phone Number [address] [phone] * MICROALB/CREAT RATIO URINE RANDOM PANEL (02/22/2015 9:56 AM JIG GRINDER SET UP OPERATOR) Creatinine Urine 164 20 - 320 mg/dL [facility] Comment: Test Performed at: [facility] [place] [id number] [place] [address] SILVIANO KIMBROUGH DO,MPH Microalbumin Urine 1.5 mg/dL [facility] Comment: Reference Range Not established Test Performed at: [facility] [place] [address] [facility] [place] [address] SILVIANO KIMBROUGH DO,MPH Urine Albumin/Creatinine Ratio 9 <30 mcg/mg creat [facility] ([facility]) Comment: The ADA defines abnormalities in albumin excretion as follows: Category Result (mcg/mg creatinine) Normal <30 Microalbuminuria 30-299 Clinical albuminuria > OR = 300 The ADA recommends that at least two of three specimens collected within a 3-6 month period be abnormal before considering a patient to be within a diagnostic category. 02/22/2015 9:56 AM JIG GRINDER SET UP OPERATOR 02/22/2015 9:56 AM JIG GRINDER SET UP OPERATOR us Isaiah Rodriguez MD LAB - URINE CHEMISTRY ORDERABL ES Final Result [facility] ([place]) [address] * DEXA BONE DENSITY AXIAL SKELETON [...] ordering physician and is also available on [employer], the Radiology Department's computerized picture archive system. [...] Sebastian M.D. on 10/01/2012 4:[address] Aung Man D.O. have personally reviewed and interpreted this [...] the ordering physicianand is also available on [employer], the Radiology Department's [employer] archive system. SUMMARY: BONE MINERAL DENSITY (BMD) [...] Relevant to Health Maintenance Insurance MEDICARE ADV MEDICARE ADV MEDICARE ADV SELF PAY NO INSURANCE Member Subscriber Plan / Payer (Ef fective for All Dates) Name:Alicia Manzano R Member ID:Not on file Relation to Subscriber:Not on file Name:ALICIA MANZANO Subscriber ID:Not on file (Home) Address: [address] [place] [address] Payer ID:Not on file Group ID:Not on file Type:Self Pay Address: [place], [place] SELF PAY NO INSURANCE Member Subscriber Plan / Payer (Ef fective for All Dates) Name:Alicia Manzano R Member ID:Not on file Relation to Subscriber:Not on file Name:ALICIA MANZANO Subscriber ID:Not on file (Home) Address: [address] [place] [address] Payer ID:Not on file Group ID:Not on file Type:Self Pay Address: [place], [place] Advance Directives Documents on File Type Date Recorded Patient Help Desk Associate Expl anation Adv Directive/Living Will/POA 10/14/2017 POA/LIVING WILL Care Teams Imaging Engineer Relationship Specialty Start Date End Date Santos Keller DO PCP - General Internal Medicine 09/02/19
--- OUTSIDE RECORDS SUMMARY | 2024-11-09 14:49 | XMS_ITS | Patient Health Record ---
Author Organization [facility] [employer] Address [address] [place] [address] Care Team Providers Care Fruit Or Nut Farmworker Name Role Phone Natalie Arrington Unavailable [phone] Reason For Referral No Information Medications Medication SIG (Take, Route, Frequency, Duration) Notes Start Date End Date Status OneTouch Ultra 2 w/Device Kit 02/23/2022 Active OneTouch Ultra Strip In Vitro 02/23/2022 Active clonazePAM 1 MG Tablet Oral 02/23/2022 Active traZODone HCl 100 MG Tablet Oral 02/23/2022 Active GEMTESA 75 MG TABLET *Reorder fr [facility] for eRx and Interaction Alerts* 02/23/2022 Active Simvastatin 40 MG Tablet Oral 02/23/2022 Active traZODone HCl 50 MG Tablet Oral 02/23/2022 Active oxyBUTYnin Chloride ER 5 MG Tablet Extended Release 24 Hour Oral 02/23/2022 Active methylPREDNISolone 4 MG Tablet Therapy Pack Oral 02/23/2022 Active Gabapentin 300 MG Capsule Oral 02/23/2022 Active Lisinopril 40 MG Tablet Oral 02/23/2022 Active NovoLOG FlexPen ReliOn 100 UNIT/ML Solution Pen-injector Subcutaneous *Reorder from [facility] for eRx and Interaction Alerts* 02/23/2022 Active metFORMIN HCl ER 500 MG Tablet Extended Release 24 Hour Oral 02/23/2022 Active Eliquis 5 MG Tablet Oral 02/23/2022 Active Escitalopram Oxalate 20 MG Tablet Oral 02/23/2022 Active Tresiba FlexTouch 200 UNIT/ML Solution Pen-injector Subcutaneous 02/23/2022 Active ULTRA-FINE SHORT PEN NEEDLE 31 gauge x 5/16 NEEDLE, DISPOSABLE MISCELLANEOUS *Reorder from [facility] for eRx and Interaction Alerts* 02/23/2022 Active busPIRone HCl 5 MG Tablet Oral 02/23/2022 Active Glimepiride 4 MG Tablet Oral 02/23/2022 Active Jardiance 25 MG Tablet Oral 02/23/2022 Active Tradjenta 5 MG Tablet Oral 02/23/2022 Active Tresiba FlexTouch 100 UNIT/ML Solution Pen-injector Subcutaneous 02/23/2022 Active Metoprolol Tartrate 25 MG Tablet Oral 02/23/2022 Active Immunizations Vaccine Route Administration Date Status Comme nts Influenza virus vaccine, quadrivalent (IIV4), split virus, 0.25 mL dosage Unknown 12/22/2014 Administered Influenza virus vaccine, quadrivalent (IIV4), split virus, 0.25 mL dosage Unknown 12/12/2016 Administered Influenza virus vaccine, quadrivalent (IIV4), split virus, 0.25 mL dosage Unknown 12/19/2020 Administered Influenza virus vaccine, quadrivalent (IIV4), split virus, 0.25 mL dosage Unknown 12/06/2021 Administered Influenza, high-dose seasona l, quadrivalent, preservative free >65 yrs Unknown 11/18/2019 Administered Influenza, unspecified formulation Unknown 11/18/2018 A dministered Novel [id number], preservative free Unknown 01/04/2016 Administered Pfizer Biontech Covid-19 Vac cine 2nd dose Unknown 04/21/2020 Administered Pfizer Biontech Covid-19 Vac cine 2nd dose Unknown 05/12/2020 Administered Pfizer Biontech Covid-19 Vac cine 2nd dose Unknown 11/28/2020 Administered Pfizer Biontech Covid-19 Vac cine 2nd dose Unknown 12/05/2021 Administered Pfizer Biontech Covid-19 Vac cine 2nd dose Unknown 12/06/2021 Administered Pfizer-Biontech Covid-19 Vac cine 1st dose Unknown 05/31/2021 Administered Pneumococcal polysaccharide PPV23 Unknown 12/06/2021 Ad ministered Social History Social History Additional Details Category Social Info Options Details Migrated Social History Migrated Social History Alcohol Intake: None 07/27/2019,Tobacco Years: Former smoker 07/27/2019 Plan Of Treatment No Information Insurance Providers Payer Name Payer Address Payer Phone Subscriber Number Group Number Insured Name Patient Relationship to Insured Coverage Start Date Coverage End Date [employer] [address] [place] [phone] [id number] [phone] ANNEMARIE MANZANO Self - patient is the insured Medical (General) History Surgical History Surgery Date(Month/Year) Major vessel shunt (37209) Procedure on foot ([id number]) Hysterectomy ([id number])
[2024-11-09 15:22] VITALS: BP 122/67; PULSE 84; RESP 20; TEMP 36.7; O2SAT 97
--- OUTSIDE RECORDS SUMMARY | 2024-11-09 16:48 | XMS_ITS | Clinical Summary ---
Author Organization [facility] Address [address] [place] [address] Care Team Providers Care Table Assembler Metal Name Role Phone Santos Keller DO Primary Care Provider [phone] [facility],non-owned Affiliates and Associated Physician Practices is amultiple site organization consisting of ambulatory clinics and hospital sitesin [place], [place], [place] and [place]. This disclosure is being madepursuant to the Care Everywhere program and may not contain all information available regarding this patient. 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 - Neurosurgery [address] [place] [address] Adam Hyman MD S/P ENERGY PROFESSIONAL shunt (Primary Dx) 08/11/2024 6:30 AM CDT - 08/11/2024 11:59 PM CDT Hospital Encounter [facility] [address] [place] [address] Adam Hyman MD Discharge Disposition: Home or [...] on file Legal Sex Female 5:49 AM SKIN FITTER Gender Identity Not on file Sexual Orientation Not on file Last Filed Vital Signs Vital Sign Reading Time Taken Comments Blood Pressure 123/79 08/11/2024 8:42 AM CDT Pulse 81 08/11/2024 8:42 AM CDT Temperature 36.3 C (97.3 F) 08/11/2024 8:42 AM CDT Respiratory Rate 18 04/03/2022 3:42 PM SKIN FITTER Oxygen Saturation 98% 08/11/2024 8:42 AM CDT [...] interventions Rest Medical Devices Implanted Type Area Manager Instrumentation Device Identifier Shelf Expiration Date Model / Serial / Lot Floor Manager Shunt [employer] Description:stratta II Healix Advance Br [place] With Dynacord Implanted:Qty: 3 on 10/14/2017 by Ron Yan MD at [facility] Right: Shoulder [employer] 03/20/2020 [id number] / / [id number] Healix Advance Knotless Br [place] Implanted:Qty: 1 on 10/14/2017 by Ron Yan MD at [facility] Right: Shoulder [employer] 05/18/2020 [id number] / / [id number] Procedures Procedure Name Priority Date/Time Associated Diagnosis Comments MRI BRAIN WWO CONTRAST Routine 08/11/2024 7:51 AM CDT Unsteady gait Word finding difficulty HEMOGLOBIN A1C - POINT OF CARE (AMB) [facility] Routine 12/19/2017 3:04 PM CDT Uncontrolled type 2 diabetes mellitus with hyperglycemia COMPREHENSIVE METABOLIC PANEL STAT 04/07/2015 12:53 PM SKIN FITTER MICROALB/CREAT RATIO URINE RANDOM PANEL Routine 02/22/2015 9:56 AM SKIN FITTER DEXA BONE DENSITY AXIAL SKELETON Routine 10/01/2012 [...] OF EXAM: 08/11/2024 7:53 AM, LOCATION [facility] INDICATION: R26.81: Unsteady gait R47.89: Word finding [...] DATE/TIME OF EXAM: 08/11/2024 7:53AM, LOCATION [facility] INDICATION: R26.81: Unsteady gait R47.89: Word finding difficulty ADDITIONAL CLINICAL INFORMATION: Ordering Provider Reason For Exam: Technologist Note: Additional: TECHNIQUE: MRI of the brain was performed prior to and following the uneventful administration of intravenous contrast according to standard protocol. CONTRAST: GADOBUTROL 1 MMOL/ML IV [facility] SO:8.4 mL COMPARISON: Comparison is made to [...] (AMB) U (12/19/2017 3:04 PM CDT) Pathologist [facility] Hemoglobin A1c POCT 7.5 [facility] Blood BLOOD SPECIMEN / Unknown 12/19/2017 3:04 PM CDT Isaiah Rodriguez MD LAB - POINT OF CARE ORDERABLES Final Result [facility] [address] [phone] * (ABNORMAL) COMPREHENSIVE METABOLIC PANEL (04/07/2015 12:53 PM SKIN FITTER) Pathologist [facility] BUN 24 7 - 26 mg/dL [facility] Creatinine 1.0 0.6 - 1.2 mg/dL [facility] Sodium 137 136 - 145 mmol/L [facility] Potassium 5.0(H) 3.5 - 4.5 mmol/L [facility] Chloride 105 98 - 107 mmol/L [facility] CO2 23 22 - 29 mmol/L [facility] Glucose 110 70 - 115 mg/dL [facility] Calcium 9.0 8.4 - 10.2 mg/dL [facility] Protein Total 6.7 6.0 - 8.3 g/dL [facility] Albumin 3.3(L) 3.4 - 5.0 g/dL [facility] Bilirubin Total 0.3 0.2 - 1.2 mg/dL [facility] Alkaline Phosphatase 81 40 - 150 Units/L [facility] ALT 13 0 - 55 Units/L [facility] AST 12 5 - 34 Units/L [facility] Anion Gap 14 8 - 18 [facility] BUN/Creatinine Ratio 24(H) 7 - 23 [facility] Osmolality Calculated 275 270 - 300 mOsm/kg [facility] Albumin/Globulin Ratio 1.0(L) 1.1 - 2.3 [facility] eGFR 56(L) >60 mL/min/1.7 3 m2 [facility] Blood specimen (specimen) BLOOD SPECIMEN / Unknown 04/07/2015 12:53 PM SKIN FITTER 04/07/2015 1:05 PM SKIN FITTER us Historical Provider LAB - CHEMISTRY ORDERABLE S Final Result Performing Organization Address City/State/[facility] Co de Phone Number [address] [phone] * MICROALB/CREAT RATIO URINE RANDOM PANEL (02/22/2015 9:56 AM SKIN FITTER) Creatinine Urine 164 20 - 320 mg/dL [facility] Comment: Test Performed at: [facility] [place] [address] [place] [address] SILVIANO KIMBROUGH DO,MPH Microalbumin Urine 1.5 mg/dL [facility] Comment: Reference Range Not established Test Performed at: [facility] [place] [address] [facility] [place] [address] SILVIANO KIMBROUGH DO,MPH Urine Albumin/Creatinine Ratio 9 [...] within a diagnostic category. 02/22/2015 9:56 AM SKIN FITTER 02/22/2015 9:56 AM SKIN FITTER us Isaiah Rodriguez MD LAB - URINE CHEMISTRY ORDERABL ES Final Result [facility]) [address] * DEXA BONE DENSITY AXIAL SKELETON [...] ordering physician and is also available on [employer], the Radiology Department's computerized picture archive system. [...] the ordering physicianand is also available on [employer], the Radiology Department's Tu[employer] archive system. SUMMARY: BONE MINERAL DENSITY (BMD) [...] MANZANO Subscriber ID:Not on file (Home) Address: [address] [place] [address] Payer ID:Not on file Group ID:Not on file Type:Self Pay Address: [place], [place] SELF PAY NO INSURANCE Member Subscriber Plan / Payer (Ef fective for All Dates) Name:Alicia Manzano R Member ID:Not on file Relation to Subscriber:Not on file Name:ALICIA MANZANO Subscriber ID:Not on file (Home) Address: [address] [place] [address] Payer ID:Not on file Group ID:Not on file Type:Self Pay Address: [place], [place] Advance Directives Documents on File Type Date Recorded Patient Head Grease Maker Expl anation Adv Directive/Living Will/POA 10/14/2017 POA/LIVING WILL Care Teams Table Assembler Metal Relationship Specialty Start Date End Date Santos Keller DO PCP - General Internal Medicine 09/02/19
--- OUTSIDE RECORDS SUMMARY | 2024-11-09 16:48 | XMS_ITS | Clinical Summary ---
Author Organization [facility] Address [facility] [place] [address] Care Team Providers Care Director Of Volunteer Services Name Role Phone [place] Tristan MD Unavailable [phone] Santos Keller DO Primary Care Provider [phone] Urbano Taylor MD Unavailable [phone] Allergies Active Allergy Reactions Criticality Noted Date [...] 60) Muscular dystr ophy Sister (Age 52) [place] Social History Tobacco Use Types Packs/Day Years Used Date Smoking Tobacco: Former Cigarettes 2014 Smokeless Tobacco: Never Comments:off and on for 30 y ears Alcohol Use Standard Drinks/Week Comments Not Currently 0 (1 standard drink = 0.6 oz pur e alcohol) Comments Unknown Sex and Gender Information Value Date Recorded Sex Assigned at Not on file Legal Sex Female 11:32 AM CLERK GUIDE Gender Identity Not on file Sexual Orientation [...] 165.1 cm (5' 5) 04/23/2019 9:00 AM CLERK GUIDE Body Mass Index 32.87 04/23/2019 9:00 AM CLERK GUIDE Plan of Treatment Health Maintenance Due Date [...] this topic Medical Devices Implanted Type Area Orthodontic Assistant Device Identifier Shelf Expiration Date Model / Serial / Lot 3.0 X 16 Asnis Screw Implanted:Qty: 1 on 05/01/2019 by Perry Fu DPM at [facility] Screw Right: Foot [id number] / / 3.0 X 18 Asnis Screw Implanted:Qty: 1 on 05/01/2019 by Perry Fu DPM at [facility] Screw Right: Foot [employer] [id number] / / Osteosynthesis Compression Staple Implanted:Qty: 1 on 05/01/2019 by Perry Fu DPM at [facility] Staple Right: Foot [employer] 12/19/2023 [id number] / / [id number] Description:COMPRESSION STAP LE Insurance AET[employer] Care Teams Director Of Volunteer Services Relationship Specialty Start Date End Date Santos Keller DO [address] [facility] [address] [place] [id number] PCP - General INTERNAL MEDICINE 04/23/19 [place] [address] [place] [address] CARDIOVASCULAR DISEASE 04/23/19 Urbano Taylor MD [address] [place] [address] NEUROLOGICAL SURGERY 04/23/19
--- OUTSIDE RECORDS SUMMARY | 2024-11-09 16:48 | XMS_ITS | Clinical Summary ---
Author Organization [facility] Address [address] [place] [address] Care Team Providers Care Glue Mixer Name Role Phone Sayda Ignacio MD Unavailable [phone] Urbano Portillo MD Unavailable [phone] Perry Fu DPM Unavailable [place] Tristan MD [...] 03/19/2019 Assessment & Plan (03/22/2019 12:29 PM RUG MEASURER): Stable. Cont. Current meds. Type 2 diabetes mellitus wit h hyperglycemia, without long-term current use of insulin 03/19/2019 Assessment & Plan (03/22/2019 12:30 PM RUG MEASURER): Labs ordered, will follow. Class 1 obesity [...] right rotator cuff 07/23/2017 03/19/2019 long term acute care registered nurse current use of insulin 05/17/2016 03/19/2019 Hyperlipidemia [...] on file Legal Sex Female 12:20 PM RUG MEASURER Gender Identity Not on file Sexual Orientation Not on file Obstetrics History Last Filed Vital Signs Vital Sign Reading Time Taken Comments Blood Pressure 126/74 03/31/2019 2:59 PM RUG MEASURER Pulse 73 03/19/2019 1:36 PM RUG MEASURER Temperature 36.8 C (98.2 F) 03/19/2019 1:36 PM RUG MEASURER Respiratory Rate 18 03/19/2019 1:36 PM RUG MEASURER Oxygen Saturation 97% 03/19/2019 1:36 PM RUG MEASURER Inhaled Oxygen Concentration - - Weight 89.4 kg (197 lb 1.6 oz) 03/31/2019 2:59 P M RUG MEASURER Height 165.1 cm (5' 5) 03/31/2019 2:59 PM RUG MEASURER Body Mass Index 32.8 03/31/2019 2:59 PM RUG MEASURER Plan of Treatment Not on file Insurance AETNA MEDICARE Care Teams Glue Mixer Relationship Specialty Start Date End Date Sayda Ignacio MD Internal Medicine 03/19/19 Urbano Portillo MD Referring Physician Neurosurgery 03/19/19 Perry Fu DPM Referring Physician Podiatry 03/19/19 [place] [id number] [address] Consulting Physician Cardiology 03/19/19
--- NOTE | 2024-11-09 16:54 | ED.UPPEXIN ---
HPI - Extremity Injury (Upper) General Chief Complaint: Extremity Injury, Upper Stated Complaint: Right wrist injury-fell Time Seen by Provider: 11/09/24 16:20 History of Present Illness HPI narrative: Patient is a 74-year-old female who presents ER with right wrist pain. She had a fall 5 days ago when she landed on her outstretched hand. She has some mild pain with range of motion the wrist but has pain over the thenar eminence of the thumb. No numbness or tingling. No fevers chills or sweats. Related Data Home Medications ?Medication ?Instructions ?Recorded ?Confirmed ?Last Taken ?Type empagliflozin 25 mg tablet 25 mg PO DAILY 04/15/23 08/19/24 11/10/23 History (Jardiance) vibegron 75 mg tablet (Gemtesa) 75 mg PO DAILY 04/15/23 08/19/24 11/10/23 History apixaban 5 mg tablet (Eliquis) 5 mg PO BID 07/28/23 08/19/24 11/08/23 History lisinopril 40 mg tablet 40 mg PO DAILY 11/04/23 08/19/24 11/10/23 History metoprolol tartrate 25 mg tablet 25 mg PO BID 11/04/23 08/19/24 11/11/23 History Allergies Allergy/AdvReac Type Severity Reaction Status Date / Time adhesive tape Allergy Intermediate Blister Verified 11/09/24 14:31 hydromorphone (From Dilaudid) Allergy Intermediate Itching Verified 11/09/24 14:31 morphine Allergy Intermediate Itching Verified 11/09/24 14:31 Review of Systems Constitutional: Constitutional: Reports no additional constitutional complaints Musculoskeletal: Musculoskeletal: Reports no additional musculoskeletal complaints Integumentary/Breasts: Skin/Breast: Reports system reviewed and no additional complaints, except as docu Neurologic: Reports system reviewed and no additional complaints, except as documented [facility] Past Medical History Medical History Acute encephalopathy Lactic acidosis URI (upper respiratory infection) Liver abscess Bacteremia Septic shock Pneumobilia Sepsis Fluid overload Dyspnea Acute hypoxic respiratory failure SIRS (systemic inflammatory response syndrome) Fungal dermatitis Chest pain Elevated LFTs Hematoma of right thigh Adult failure to thrive DVT (deep venous thrombosis) (~1979) LLE Type 2 diabetes mellitus Colon polyps Urinary incontinence Osteopenia CAD (coronary artery disease) TIA (transient ischemic attack) Postmenopausal Diabetic neuropathy Visceral hypersensitivity syndrome Costochondritis Hyperlipidemia Obesity Back pain A-fib Leukocytosis Insomnia Trigeminal neuropathy Generalized pruritus Hypertension Arthritis Anxiety Thyroid disorder IBS (irritable bowel syndrome) Depression Asthma Allergies Back injury L5 SI injection Brain bleed (2) Surgical History Surgical History History of right knee surgery Dr Lewis April 2023 Hx laparoscopic cholecystectomy 06/2023 complicated by bile leak, bile peritonitis Status post cholecystectomy History of surgery of head placement of shunt History of back surgery H/O: hysterectomy H/O foot surgery Left and right H/O knee surgery Left Family History Family History Mother , unknown cause Muscular dystrophy Father Carcinoma of colon Grandparent Acute myocardial infarction Ruptured appendix Sibling Acute myocardial infarction <65yo Social History Social History Smoking packs per day: 1 Smoking cigarettes per day: 20.0 Years smoked: 3 Smoking pack-years: 3.00 Smoking status: Former smoker Tobacco type: cigarettes Second hand tobacco smoke exposure: Yes () Additional smoking assessment comments: DENIES ANY FORM OF TOBACCO USE Alcohol intake: never Substance use: never Substance use type: does not use Do You Feel Safe in your Home?: Yes Lack of Transportation: No Lack of Food: Never True Current Housing: I Have Housing Concerned About Future Housing: No Difficulty Paying Gas/Electric Bills: No Difficulty Paying for Meds: No Currently Unemployed: No Education: High School Diploma/GED Difficulty w/ Childcare or Family Care: YES Living arrangements: with family Occupation/Education: retired 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 HEAD: Normocephalic, atraumatic. ENT: Mucous membranes moist. HEART: Regular rate and rhythm. Normal peripheral pulses. EXTREMITIES: Mild tenderness around the thenar eminence and the dorsal aspect of the right wrist. Minimal swelling. Normal range of motion. Has some discomfort making a thumbs-up sign. SKIN: Warm, dry, no rash. NEURO: Alert and oriented x3. PSYCH: Normal mood and affect. Course Course Emergency Course: Recommend a Velcro splint for the right wrist as well as follow-up with PCP and scheduled anti-inflammatories. Patient verbalized understanding Vital Signs Vital signs: Vital Signs Temperature 98.1 F 11/09/24 15:22 Pulse Rate 84 11/09/24 15:22 Respiratory Rate 20 11/09/24 15:22 Blood Pressure 122/67 11/09/24 15:22 Pulse Oximetry 97 11/09/24 15:22 Temperature 98.1 F 11/09/24 15:22 Pulse Rate 84 11/09/24 15:22 Respiratory Rate 20 11/09/24 15:22 Blood Pressure 122/67 11/09/24 15:22 Pulse Oximetry 97 11/09/24 15:22 MDM - Extremity Injury (Upper) Imaging Data Radiologist's impression: ITS Impressions Wrist X-Ray 11/09/24 15:12 Impression: No acute fracture or malalignment. Discharge Plan Discharge Clinical Impression: Sprain of wrist Patient Disposition: Home Condition: Stable Instructions: P.R.I.C.E. Treatment (ED), Wrist Sprain (ED) Additional Instructions: Return to the ER if you suffer a new injury, have chest pain shortness of breath, you cannot keep down food/water, or you have additional concerns. Purchase a wrist splint for comfort. Patient Language: Macedonian Prescriptions: No Action (DME) blood-glucose meter Kit See Rx Instructions .ROUTE .MEDSUPPLY Qty: 1 6RF Rx Instructions: As directed insulin glargine [Basaglar KwikPen U-100 Insulin] 100 unit/mL (3 mL) insulin pen 18 unit subcut QAM Qty: 30 1RF insulin aspart U-100 [Novolog FlexPen U-100 Insulin] 100 unit/mL (3 mL) insulin pen See Rx Instructions subcut TIDWMEAL MDD 34 Qty: 30 1RF Rx Instructions: 5 Units before bf, 7 units before lunch and 7 units before dinner. Add sliding scale 1/50>200 before meals lisinopril 40 mg tablet 40 mg PO DAILY metoprolol tartrate 25 mg tablet 25 mg PO BID Gemtesa 75 mg tablet 75 mg PO DAILY Jardiance 25 mg tablet 25 mg PO DAILY Eliquis 5 mg tablet 5 mg PO BID acetaminophen 500 mg capsule 1,000 mg PO Q6H PRN (Reason: pain) Qty: 30 0RF (DME) pen needle, diabetic [BD Ultra-Fine Short Pen Needle] 31 gauge x 5/16 needle See Rx Instructions .ROUTE .MEDSUPPLY Qty: 360 4RF Rx Instructions: use with injection 4 times daily cholecalciferol (vitamin D3) 1,250 mcg (50,000 unit) tablet 1,250 mcg PO WEEKLY Qty: 14 2RF metformin 500 mg tablet See Rx Instructions .ROUTE .COMPLEX Qty: 360 1RF Dose Instruction: TAKE 2 TABLETS TWICE A DAY Rx Instructions: TAKE 2 TABLETS TWICE A DAY buspirone 5 mg tablet See Rx Instructions .ROUTE .COMPLEX Qty: 180 1RF Dose Instruction: TAKE 1 TABLET TWICE A DAY Rx Instructions: TAKE 1 TABLET TWICE A DAY simvastatin 40 mg tablet 40 mg PO HS Qty: 90 1RF alendronate [Fosamax] 70 mg tablet 70 mg PO WEEKLY Qty: 14 2RF colestipol 1 gram tablet See Rx Instructions .ROUTE .COMPLEX Qty: 60 6RF Dose Instruction: TAKE 1 TABLET BY MOUTH TWICE DAILY Rx Instructions: TAKE 1 TABLET BY MOUTH TWICE DAILY Tradjenta 5 mg tablet See Rx Instructions .ROUTE .COMPLEX Qty: 90 1RF Dose Instruction: TAKE 1 TABLET BY MOUTH EVERY MORNING Rx Instructions: TAKE 1 TABLET BY MOUTH EVERY MORNING trazodone 100 mg tablet 100 mg PO HS Qty: 90 1RF escitalopram oxalate 20 mg tablet 20 mg PO HS Qty: 90 1RF gabapentin 300 mg capsule 300 mg PO BID Qty: 180 1RF Follow-up/Referrals: Santos Keller DO [Primary Care Provider, Internal Medicine] - 1 Week
== END 2024-11-09 17:25 | disposition home or self-care (01) ==
PROVIDERS: Emergency Provider Emergency Medicine; PCP Internal Medicine
DX: S63.501A Unspecified sprain of right wrist, initial encounter (principal); I25.10 Atherosclerotic heart disease of native coronary artery without angina pectoris; I48.91 Unspecified atrial fibrillation; I10 Essential (primary) hypertension; E11.40 Type 2 diabetes mellitus with diabetic neuropathy, unspecified; E07.9 Disorder of thyroid, unspecified; J45.909 Unspecified asthma, uncomplicated; K58.9 Irritable bowel syndrome, unspecified; R32 Unspecified urinary incontinence; F32.A Depression, unspecified; F41.9 Anxiety disorder, unspecified; Z86.73 Personal history of transient ischemic attack (TIA), and cerebral infarction without residual deficits; Z86.718 Personal history of other venous thrombosis and embolism; Z86.0100 Personal history of colon polyps, unspecified; Z87.891 Personal history of nicotine dependence; Z90.49 Acquired absence of other specified parts of digestive tract; Z90.710 Acquired absence of both cervix and uterus; Z79.01 Long term (current) use of anticoagulants; Z79.84 Long term (current) use of oral hypoglycemic drugs; Z79.4 Long term (current) use of insulin; Z79.899 Other long term (current) drug therapy; W19.XXXA Unspecified fall, initial encounter
CPT/HCPCS: 73110; 99283

== ENCOUNTER 2024-11-26 12:58 | Outpatient (CLI) | payer MEDICARE, SELFPAY ==
[2024-11-26 13:40] LABS: Alanine Aminotransferase 15 U/L (6-35); Albumin Level 4.0 g/dL (3.5-5.1); Alkaline Phosphatase 47 U/L (38-126); Anion Gap 10 mmol/L (4-12); Aspartate Amino Transferase 20 U/L (14-36); Bilirubin,Total 0.6 mg/dL (0.2-1.3); Blood Urea Nitrogen 28 mg/dL (7-17); Calcium 9.0 mg/dL (8.4-10.2); Carbon Dioxide 24 mmol/L (22-30); Chloride 103 mmol/L (98-107); Cholesterol 133 mg/dL (0-200); Estimated Glomerular Filt Rate > 60; Glucose 177 mg/dL (65-110); HDL Direct 55 mg/dL; Potassium 4.1 mmol/L (3.4-5.0); Sodium 137 mmol/L (137-145); Total Protein 7.1 g/dL (6.3-8.2); Triglycerides 171 mg/dL (<150)
[2024-11-26 13:44] LABS: MALB Creatinine Ratio 37.4 mg/g (0-30)
[2024-11-26 14:07] LABS: Free T4 Free Thyroxine 0.95 ng/dL (0.78-2.19)
[2024-11-26 14:17] LABS: Thyroid Stimulating Hormone 2.970 uIU/mL (0.465-4.680)
[2024-11-26 14:40] LABS: Vitamin B12 212.0 pg/mL (239-931)
== END 2024-11-26 12:59 | disposition home or self-care (01) ==
PROVIDERS: PCP Internal Medicine; Visit Provider Nurse Practitioner Family
DX: E11.9 Type 2 diabetes mellitus without complications (principal); E07.9 Disorder of thyroid, unspecified; I10 Essential (primary) hypertension; E78.5 Hyperlipidemia, unspecified; E55.9 Vitamin D deficiency, unspecified; E11.65 Type 2 diabetes mellitus with hyperglycemia; Z79.4 Long term (current) use of insulin
CPT/HCPCS: 36415; 80053; 80061; 82043; 82306; 82607; 84439; 84443

== ENCOUNTER 2025-01-21 15:35 | Outpatient (CLI) | payer MEDICARE, SELFPAY ==
--- NOTE | ~2025-01-21 | XR_ITS ---
EXAMINATION: XR femur LT min 2V, 01/21/2025 16:25 [facility] HISTORY: Unspecified fall, fell this morning, pain since COMPARISON: No comparisons available. Findings: No acute fracture or malalignment. Severe degenerative changes of the visualized knee. Moderate degenerative changes of the acetabular femoral joint. Soft tissues unremarkable. Impression: No acute fracture or malalignment. Reviewed, dictated and finalized at location P[facility] Impression: No acute fracture or malalignment.
--- NOTE | ~2025-01-21 | XR_ITS ---
EXAMINATION: XR hip LT 2V w AP pelvis, 01/21/2025 16:25 P[facility] DRIVER HISTORY: W19.XXXA - Unspecified fall, initial encounter COMPARISON: No comparisons available. Findings: No acute fracture or malalignment. No significant degenerative changes. Soft tissues unremarkable. Impression: No acute fracture or malalignment. Reviewed, dictated and finalized at location P. UP TRUCK DRIVER Impression: No acute fracture or malalignment.
== END 2025-01-21 15:36 | disposition home or self-care (01) ==
LOC: GOSHIMG 15:35
PROVIDERS: PCP Internal Medicine
DX: M25.552 Pain in left hip (principal); W19.XXXA Unspecified fall, initial encounter
CPT/HCPCS: 73502; 73552

== ENCOUNTER 2025-01-22 10:19 | Outpatient (NON) | payer MEDICARE, SELFPAY ==
[2025-01-22 13:03] LABS: Add Urine Microscopic? YES; Appearance Urine Cloudy (Clear); Glucose Urine UA 3+ mg/dL (Negative); Leukocyte Esterase Ur 1+ LEU/UL (Negative); Nitrate Urine Positive (Negative); Non Pathogenic Casts 0-2; Specific Grav Ur 1.035 (1.001-1.035)
== END 2025-01-22 10:20 | disposition home or self-care (01) ==
LOC: ANHGOSHLAB 10:21
PROVIDERS: PCP Internal Medicine
DX: R35.0 Frequency of micturition (principal)
CPT/HCPCS: 81001; 87077; 87086; 87186

== ENCOUNTER 2025-02-01 12:58 | Outpatient (CLI) | payer MEDICARE, SELFPAY ==
--- NOTE | ~2025-02-01 | US_ITS ---
US right upper quadrant Indication: R10.11 - Right upper quadrant pain Comparison: None Technique: Boyer-scale and color Doppler images were obtained. Findings: LIVER: Moderate increased echogenicity of the liver. The liver contours appear slightly nodular. . GALLBLADDER/BILIARY: Post cholecystectomy. CBD 4 mm. [place] Benedict sign negative. PANCREAS: Pancreas limited by bowel gas. Right Kidney: The right kidney is limited however the visualized kidney appears echogenic. Impression: 1. Limited study. 2. Cirrhotic disease of the liver suspected. 3. Mild medical renal disease Reviewed, dictated and finalized at location P. T BANDER Impression: 1. Limited study. 2. Cirrhotic disease of the liver suspected. 3. Mild medical renal disease
== END 2025-02-01 12:59 | disposition home or self-care (01) ==
LOC: GOSHIMG 12:59
DX: R10.11 Right upper quadrant pain (principal); N28.9 Disorder of kidney and ureter, unspecified
CPT/HCPCS: 76705